=== PATIENT | female | born 1985 | race Caucasian/White ===

== ENCOUNTER 2023-10-08 03:35 | Outpatient (REF) | payer OTHER, SELFPAY ==
[2023-10-08 04:16] LABS: Hemoglobin 7.4 g/dL (12.0-16.0); Mean Corpuscular HGB Conc 31.2 g/dL (29.9-35.2); Mean Corpuscular Hemoglobin 29.1 pg (26.7-34.0); Mean Corpuscular Volume 93.3 fL (81.0-99.0); Mean Platelet Volume 10.5 fL (9.5-13.5); Platelet Count 297 10^3/uL (150-450); Red Blood Count 2.54 10^6/uL (4.20-5.40); Red Cell Distribution Width 17.3 % (11.0-15.0); White Blood Count 10.8 10^3/uL (4.0-11.0)
[2023-10-08 04:27] LABS: Alanine Aminotransferase 12 U/L (14-59); Albumin Globulin Ratio 0.4; Albumin Level 1.2 g/dL (3.4-5.0); Alkaline Phosphatase 288 U/L (46-116); Anion Gap 10.2; Aspartate Amino Transferase 29 U/L (15-37); BUN Creatinine Ratio 3.1; Bilirubin Total 0.6 mg/dL (0.2-1.0); Calcium 8.3 mg/dL (8.5-10.1); Carbon Dioxide 27.5 mmol/L (21.0-32.0); Chloride 96 mmol/L (98-107); Estimated GFR (African America 21 (>=60); Estimated GFR (Non-African Ame 18 (>=60); Glucose 62 mg/dL (74-106); Potassium 3.7 mmol/L (3.5-5.1); Sodium 130 mmol/L (136-145); Total Protein 4.2 g/dL (6.4-8.2)
[2023-10-08 06:01] LABS: Hematocrit 23.7 % (36.0-48.0)
[2023-10-08 06:02] LABS: Anisocytosis 2+; Atypical Lymphocytes Abs Man 0.97; Eosinophils Absolute Manual 0.32 10^3/uL (0.00-0.70); Hypersegmented Neutrophils 2+; Hypochromasia 4+; Lymphocytes Absolute Manual 3.45 10^3/uL (1.20-3.80); Monocytes Absolute Manual 1.94 10^3/uL (0.30-0.80); Segmented Neut Absolute Manual 3.99 10^3/uL (1.4-6.5)
[2023-10-08 06:03] LABS: Toxic Granulation 2+; Toxic Vacuolation 3+
== END 2023-10-08 03:36 | disposition home or self-care (01) ==
LOC: LAB 03:35
PROVIDERS: PCP Student in an Organized Health Care Education/Training Program; Visit Provider Student in an Organized Health Care Education/Training Program
DX: N18.6 End stage renal disease (principal)
CPT/HCPCS: 36415; 80053; 85007; 85027

== ENCOUNTER 2025-02-17 09:31 | Outpatient (OUT) | payer MEDICARE, MEDICAID, SELFPAY ==
--- NOTE | 2025-02-17 | XR_ITS ---
The [address] [address] Patient Name: WINNIE RM MRN: [id number] date: 1985 Sex: F Assigned Patient Location: [facility] Current Patient Location: [facility] Accession/Order Number: [id number] Exam Date: 02/17/2025 10:20 Report Date: 02/17/2025 10:49 At the request of: CAROLINA SEARS DO Procedure: XR hand RT min 3V CLINICAL HISTORY: M25.511 right shoulder and hand pain since fall 2 days ago. History of shoulder prosthesis. RIGHT SHOULDER - 3 views COMPARISON: None AP, Y and Grashey views were obtained. The bony structures are osteopenic. There is a reverse shoulder prosthesis. There is a cerclage wire at the proximal humerus and deformity of the shaft of the humerus around the femoral stem which appears old. There is no definite acute fracture or dislocation. There are no significant soft tissue abnormalities. XR/XR hand RT min 3V IMPRESSION: NO OBVIOUS ACUTE BONY INJURY. RIGHT HAND - 3 views COMPARISON: None AP, lateral and oblique views were obtained. There is osteopenia. There is no evidence of fracture or dislocation. No disproportionate joint space narrowing or hypertrophy is noted. There is mild soft tissue prominence at the second through fourth fingers and dorsum of the hand. IMPRESSION: NO ACUTE BONY FINDINGS. Impression dictated by: Mary Menard M.D. 02/17/2025 10:49 AM Dictation Location: [place] [address] Electronically authenticated by: [id number] Y Date: 02/17/2025 10:49
--- NOTE | 2025-02-17 | XR_ITS ---
The [address] [address] Patient Name: WINNIE RM MRN: [id number] date: 1985 Sex: F Assigned Patient Location: [facility] Current Patient Location: [facility] Accession/Order Number: [id number] Exam Date: 02/17/2025 09:45 Report Date: 02/17/2025 10:49 At the request of: CAROLINA SEARS DO Procedure: XR hand RT min 3V CLINICAL HISTORY: M25.511 right shoulder and hand pain since fall 2 days ago. History of shoulder prosthesis. RIGHT SHOULDER - 3 views COMPARISON: None AP, Y and Grashey views were obtained. The bony structures are osteopenic. There is a reverse shoulder prosthesis. There is a cerclage wire at the proximal humerus and deformity of the shaft of the humerus around the femoral stem which appears old. There is no definite acute fracture or dislocation. There are no significant soft tissue abnormalities. XR/XR shoulder RT min 2V IMPRESSION: NO OBVIOUS ACUTE BONY INJURY. RIGHT HAND - 3 views COMPARISON: None AP, lateral and oblique views were obtained. There is osteopenia. There is no evidence of fracture or dislocation. No disproportionate joint space narrowing or hypertrophy is noted. There is mild soft tissue prominence at the second through fourth fingers and dorsum of the hand. IMPRESSION: NO ACUTE BONY FINDINGS. Impression dictated by: Mary Menard M.D. 02/17/2025 10:49 AM Dictation Location: [place] [address] Electronically authenticated by: [id number] Y Date: 02/17/2025 10:49
--- OUTSIDE RECORDS SUMMARY | 2025-02-17 09:38 | XMS_ITS | CCD ---
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 Name Role Phone Frank Pantoja MD Primary Care Provider FRANK PANTOJA Referring Unavailable [place] Procedure Practitioner Unavailab DINA Nuñez Admitting Unavailable DINA CASEY Attending Unavailable DINA CASEY Surgeon Unavailable FRANK PANTOJA Primary Care Unavailable ANDRES, AKINFEMI S Referring Unavailable FRANK PANTOJA Primary Care Unavailable ANDRES, AKINFEMI S Referring Unavailable FRANK PANTOJA Primary Care Unavailable ANDRES, AKINFEMI S Referring Unavailable FRANK PANTOJA Primary Care Unavailable ANDRES, AKINFEMI S Referring Unavailable FRANK PANTOJA Primary Care Unavailable MD Frank Pantoja Primary Care Provider MD Flash Black Attending Provider MD Frank Pantoja Primary Care Provider [phone] MD Flash Black Attending Provider [phone] MD Joseph Mcbride Attending Provider MD Tima Lara Attending Provider [phone] SELF, SELF Referring Unavailable CODY ANGEL Attending Unavailable FRANK PANTOJA Primary Care Unavailable Frank Pantoja MD Primary Care Provider [phone] Clarissa Valles Unavailable Unavailable MD [facility] [phone] MD Pedro Floyd Attending Provider KASI Carmen Emergency Provider [phone] MD Flo Thomson Admit Provider MD Flo Thomson Attending Provider MD Gui Rodas Other Provider MD Pedro Floyd Other Provider MD Roberto Pollack Other Provider MD Beba Ng Attending Provider Kit SAMANIEGO, [facility] Primary Care Provide r KIT [facility] Primary Care Unavail able ROBERTO POLLACK Attending Unavailable KIT, [facility] Primary Care Unavail able KIT, [facility] Primary Care Unavail able PANTOJA, [facility] Primary Care Unavail able KIT, [facility] Primary Care Unavail able ROBERTO POLLACK Attending Unavailable KIT, [facility] Primary Care Unavail able PANTOJA, [facility] Primary Care Unavail able ROBERTO POLLACK Attending Unavailable NON STAFF Primary Care Provider UnavailDO Tone Suarez Emergency Provider MD Hortensia Cordero Admit Provider MD Hortensia Cordero Attending Provider Larry Bridges Consulting Un available NON STAFF Primary Care Unavailable Hortensia Cordero Admitting Unavailable Tani Meehan Attending Unavailab tonya Ac, Imad Consulting Unavailable Tima Lara Consulting Unavailable Radha Holman Consulting Unavailable Bren Kwon Consulting Unavailable Pepito Lopez Consulting Unavailable Will Romero Consulting Unavailab Tanya Strong Consulting Unavailable Joseph Ocampo Consulting Unavailable Alba Rodriguez Consulting Unavailable Luz Valdes Consulting Unavailable Cherelle Green Consulting Unavailable Alysha Thakur Consulting Unavailable Arvind Sun Consulting Unavailable Azeb George Consulting Unavailable Antelmo Ordoñez Consulting Unavailable Lobito Joe Consulting UnavailMarty Rachel Consulting Unavailable Cande Russo Consulting Unavailable Pippa Jules Consulting Unavailable Charlie Barajas Consulting Unavailable Pete Draper II Consulting UnavailChuy Gallardo Consulting Unavailable Emeka Canales Consulting Unavailable MD Larry Bridges Other Provider MD Dominic Ac Other Provider MD Tima Lara Other Provider Radha Holman Other Provider Unavailable DO Bren Kwon Other Provider MD Pepito Lopez Other Provider DO Will Romero Other Provider Alfa, ANP-BC Tanya Other Provider DO Joseph Ocampo Other Provider KASI Rodriguez Other Provider OSCAR Valdes-C Luz Espinoza Other Provider [phone] KASI Green-ELECTRONIC SECURITY SPECIALIST-C Cherelle Warren Other Provider HEAVEN Thakur Other Provider Unavailable MD Arvind Sun Other Provider OSCAR George-C Azeb R Other Provider MD Antelmo Ordoñez F Other Provider [phone] MD Lobito Joe Other Provider MD Marty Ashley Other Provider MD Cande Russo R Other Provider OSCAR Jules-C Pippa Lucero Other Provider DO Charlie Barajas Other Provider MD Pete Draper II Other Provider DO Chuy Mojica Other Provider MD Emeka Canales Other Provider MD Beba Ng Attending Provider DO Chuy Mojica Attending Provider DO Will Romero Other Provider KASI Rodriguez Other Provider [phone] KASI Saldana Emergency Provider MD Arvind Sun Attending Provider NON STAFF Primary Care Provider Unavailabl e DO Galina Chuy A Attending Provider [phone] MD Tima Lara Other Provider MD Kit [facility] Primary Care Provider DO Galina Chuy A Admit Provider NON STAFF Primary Care Provider Unavailabl e DO Galina Chuy A Attending Provider Galina WILDE Chuy A Attending Provider [phone] Kit SAMANIEGO, [facility] Primary Care Provider Chuy Mojica DO Admit Provider [phone] Kit SAMANIEGO, [facility] Primary Care Provider [phone] Chuy Mojica DO A Attending Provider Tima Lara MD Attending Provider NO FAMILY, PHYSICIAN Primary Care Provider Unava ilable Kit SAMANIEGO, [facility] Primary Care Provider Chuy Mojica DO Attending Provider [phone] Kit SAMANIEGO, [facility] Primary Care Provider [phone] Chuy Mojica DO Attending Provider Tima Lara MD Attending Provider NO FAMILY, PHYSICIAN Primary Care Provider Unava ilable Arvind Sun MD Attending Provider Chuy Mojica Attending Unavailable NO FAMILY, PHYSICIAN Primary Care Unavailable Galina Chuy A Admitting Unavailable Tima Lara Attending Unavailable Marco, Essam Admitting Unavailable [facility] Primary Care Unavailable Chuy Mojica Attending Unavailable Galina Chuy A Admitting Unavailable NO FAMILY, PHYSICIAN Primary Care Unavailable Arvind Sun Admitting Unavailable Arvind Sun Attending Unavailable [facility] Primary Care Unavailable Suman Mojicain A Attending Unavailable Galina Chuy A Admitting Unavailable Patria Saldana Attending Unavailable Patria Saldana Admitting Unavailable NON STAFF Primary Care Unavailable Elashi, Essam Consulting Unavailable Galina, Chuy A Attending Unavailable Galina, Chuy A Admitting Unavailable [place], [facility] Primary Care Unavailable Galina, Chuy A Attending Unavailable NON STAFF Primary Care Unavailable Galina, Chuy A Admitting Unavailable Galina, Chuy A Attending Unavailable Laton, [facility] Primary Care Unavailable Galina, Chuy A Admitting Unavailable Galina, Chuy A Attending Unavailable Laton, [facility] Primary Care Unavailable Galina, Chuy A Admitting Unavailable Pantoja, [facility] Primary Care Unavailable Galina, Chuy A Admitting Unavailable Galina, Chuy A Attending Unavailable Elashi, Essam Admitting Unavailable Elashi, Essam Attending Unavailable NO FAMILY, PHYSICIAN Primary Care Unavailable Galina, Chuy A Attending Unavailable Pantoja, [facility] Primary Care Unavailable Galina, Chuy A Admitting Unavailable Galina, Chuy A Attending Unavailable Laton, [facility] Primary Care Unavailable Galina, Chuy A Admitting Unavailable Galina, Chuy A Attending Unavailable [place], [facility] Primary Care Unavailable Galina, Chuy A Admitting Unavailable Galina, Chuy A Attending Unavailable Galina, Chuy A Admitting Unavailable NON STAFF Primary Care Unavailable Galina, Chuy A Attending Unavailable [facility] Primary Care Unavailable Galina, Chuy A Admitting Unavailable Galina, Chuy A Attending Unavailable [facility] Primary Care Unavailable Galina, Chuy A Admitting Unavailable Galina, Chuy A Attending Unavailable Galina, Chuy A Admitting Unavailable NON STAFF Primary Care Unavailable NON STAFF Primary Care Unavailable Arvind Sun Attending Unavailable Arvind Sun Admitting Unavailable Galina DO, Chuy A Attending Provider Provider, None Primary Care Unavailable Geneva Lynch Attending Unavailable Geneva Lynch Admitting Unavailable Galina DO, Chuy Attending Unavailable Galina DO, Chuy Admitting Unavailable [facility] Primary Care Unavailable Provider, None Primary Care Unavailable Galina DO, Chuy Attending Unavailable Galina DO, Chuy Admitting Unavailable Allergies Allergy Classification Reported Allergen(s) Allergy Type Date of Onset Reaction(s) Facility (20 sources) Penicillins; Translations: [PENICILLINS] Propensity to adverse reactions to drug 10-10-19 14 Rash [facility] (1 source) Sulfonamides (Antibiotic) Propensity to adverse reactions to drug 10-10-19 14 [facility] (1 source) Fish-Derived Products Propensity to adverse reactions to drug 10-10-19 14 [facility] (1 source) Penicillin; Translations: [PENICILLIN] Drug Allergy 04-04-20 [facility] Rep[facility] (20 sources) Sulfonamides (Antibiotic); Translations: [SULFA (SULFONAMIDE ANTIBIOTICS)] Propensity to adverse reactions (disorder) 08-01-19 21 Hives [facility] Rep[facility] (20 sources) Sulfamethoxazole; Translations: [SULFAMETHOXAZOLE] Drug Allergy 08-01-19 [facility] (20 sources) Trimethoprim; Translations: [TRIMETHOPRIM] Drug Allergy 08-01-19 [facility] (1 source) Fish - dietary Propensity to adverse reactions to drug 01-14-20 15 Anaphylaxis [facility] (5 sources) Sulfamethoxazole / Trimethoprim; Translations: [SULFAMETHOXAZOLE-T RIMETHOPRIM] Drug Allergy 12-05-19 15 Rash [facility] Work Phone: (4 sources) Fish; Translations: [FISH CONTAINING PRODUCTS] Drug Allergy 10-10-19 14 Unknown [place] (3 sources) Penicillins Drug Allergy 10-10-19 14 Hives, Rash [place] (4 sources) Shellfish; Translations: [SHELLFISH CONTAINING PRODUCTS] Drug Allergy 01-14-20 15 Anaphylaxis [place] (20 sources) Fish Oils; Translations: [fish oil] Drug Allergy 09-08-19 24 Unknown Reaction [facility] (2 sources) Penicillins Drug allergy (disorder) 09-08-19 [facility] Repository (14 sources) Fish - dietary Allergy to substance 01-06-20 Anaphylaxis [facility] (1 source) Sulfamethoxazole / Trimethoprim; Translations: [Bactrim] Drug Allergy [facility] (1 source) Sulfonamides (Antibiotic); Translations: [sulfa drugs] Propensity to adverse reactions to drug (disorder) [facility] Repository Medications Current Medications Medication Drug Class(es) Dates Sig (Normalized) Sig (Original) acetaminophen 325 mg / HYDROcodone bitartrate 5 mg oral tablet (6 sources) Opioid Agonist Start: 08-05-2024 take 1 tablet by mouth every eight hours as needed for pain Hydrocodone-Acet aminophen 5-325 mg tablet Active 1 TAB PO Every 8 hours as needed for pain 12 12August 05, 2024 amLODIPine 5 mg oral tablet (11 sources) Dihydropyridine Calcium Channel Candis Start: 06-15-2024 take 1 tablet by mouth once daily Amlodipine 5 mg tablet Active 5 MG PO Daily June 15, 2024 1:00am Start: 03-02-2021 take 1 tablet by asuncion th once daily amLODIPine (NORVASC) 5 MG tablet Take 1 tablet by mouth daily 30 tablet 3 03/02/2021 Active ascorbic acid 100 mg / biotin 0.15 mg / calcium pantothenate 5 mg / folic acid 1 mg / niacin 20 mg / pyridoxine 10 mg / riboflavin 1.7 mg / thiamine mononitrate 1.5 mg / vitamin b12 0.006 mg oral capsule (1 source) Nicotinic Acid, Vitamin B12, Vitamin C take 1 capsule by mouth once daily vitamin C/B complex/folic acid 1 MG capsule Take 1 capsule by mouth daily. 0 Active calcium acetate 667 mg oral tablet (20 sources) Start: take 1 tablet by mouth three times daily at mealtime Calcium Acetate 667 mg tablet Active 667 MG PO 3 times per day with meals September 08, 2023 12:00am Start: 07-10-2022 End: 09-26-2023 Calcium Acetate(Phosphat Bin d) 667 mg capsule Discontinued 50 MG PO 3X/Day with lunch,supper & HS July 10, 2022 1:00am September 26, 2023 12:32pm Start: 07-10-2022 End: 09-26-2023 take 50 mg by mouth once at bedtime Calcium Acetate(Phosphat Bind) Discontinued 50 MG PO 3X/Day with lunch,supper & HS July 10, 2022 1:00am September 26, 2023 12:32pm Start: 03-02-2021 calcium acetat e,phosphat bind, (PHOSLO) 667 mg capsule Calcium Acetate(Phosphat Bind) Active 50 MG PO 3X/Day with lunch,supper & HS July 10, 2022 12:00am 0 03/02/2021 Active Comment on above: Calcium Acetate(Phos phat Bind) Active 50 MG PO 3X/Day with lunch,supper & HS July 10, 2022 12:00am cycloSPORINE 100 mg oral capsule (20 sources) Calcineurin Inhibitor Immunosuppressant Start: 01-06-2024 Cyclosporine 100 mg capsule Active 75 MG PO Daily at bedtime January 06, 2024 12:00am Start: 12-23-2023 End: 01-06-2024 Cyclosporine 100 mg capsule Discontinued 75 MG PO Daily December 23, 2023 2:05pm January 06, 2024 3:07pm Patient may have 25 mg TID Start: 12-23-2023 End: 01-06-2024 take 25 mg by mouth once daily at bedtime Cyclosporine Active 75 MG PO Daily at bedtime January 06, 2024 12:00am Patient may have 25 mg TID Start: 09-08-2023 End: 12-23-2023 Cyclosporine 100 mg capsule Discontinued 75 MG PO Daily September 08, 2023 12:00am December 23, 2023 2:10pm Start: 09-08-2023 End: 12-23-2023 take 75 mg by mouth once daily Cyclosporine Discontinu ed 75 MG PO Daily September 08, 2023 12:00am December 23, 2023 2:10pm Start: 07-10-2022 End: 09-26-2023 take 1 capsule by mouth at bedtime Cyclosporine Modified 50 mg Capsule Discontinued 50 MG PO Bedtime July 10, 2022 1:00am September 26, 2023 12:32pm Start: 07-10-2022 End: 09-26-2023 Cyclosporine Modified 25 mg capsule Discontinued 75 MG PO Every morning July 10, 2022 1:00am September 26, 2023 12:32pm Start: 07-10-2022 End: 09-26-2023 take 75 mg by mouth once daily in the morning Cyclosporine Modified Discontinued 75 MG PO Every morning July 10, 2022 1:00am September 26, 2023 12:32pm Start: 07-31-2020 End: 07-10-2022 Cyclosporine Modified 25 mg capsule Discontinued 75 MG PO Twice daily July 31, 2020 1:00am July 10, 2022 4:36pm Start: 07-31-2020 End: 07-10-2022 take 75 mg by mouth twice daily Cyclosporine Modified Discontinued 75 MG PO Twice daily July 31, 2020 1:00am July 10, 2022 4:36pm Start: 09-12-2015 cycloSPORINE m odified (NEORAL,GENGRAF) 25 mg capsule Take 75 mg by mouth. 0 09/12/2015 Active Comment on above: Take 75 mg by mouth. escitalopram 5 mg oral tablet (20 sources) Serotonin Reuptake Inhibitor Start: 4 take 3 tablets by mouth once daily at bedtime Escitalopram Oxalate (Lexapro) 5 mg tablet Active 15 MG PO Daily at bedtime September 08, 2023 12:00am Start: 07-10-2022 End: 09-26-2023 Escitalopram Oxalate 10 mg t ablet Discontinued 15 MG PO Daily at bedtime July 10, 2022 1:00am September 26, 2023 12:32pm Start: 07-10-2022 End: 09-26-2023 take 15 mg by mouth once daily at bedtime Escitalopram Oxalate Discontinued 15 MG PO Daily at bedtime July 10, 2022 1:00am September 26, 2023 12:32pm take 3 tablets by mo uth once daily escitalopram oxalate (LEXAPRO) 5 mg tablet Take 3 tablets by mouth once daily. 0 Active Comment on above: Take 3 tablets by mo uth once daily. levothyroxine sodium 0.075 mg oral capsule (20 sources) l-Thyroxine Start: 4 take 1 capsule by mouth once daily at bedtime Levothyroxine 75 mcg capsule Active 75 MCG PO Daily at bedtime September 08, 2023 12:00am Start: 09-12-2015 End: 09-26-2023 take 1 tablet by mouth once daily Levothyroxine 75 mcg tablet Discontinued 75 MCG PO Daily July 31, 2020 1:00am September 26, 2023 12:32pm Comment on above: Levothyroxine Active 75 MCG PO Daily July 31, 2020 12:00am losartan potassium 50 mg oral tablet (20 sources) Angiotensin 2 Receptor Candis Start: 02-04-2024 take 1 tablet by mouth once daily Losartan 50 mg tablet Active 50 MG PO Daily February 04, 2024 12:00am Start: 01-06-2024 losartan Activ e PO Twice daily January 06, 2024 12:00am Start: 09-08-2023 End: 09-26-2023 take 1 tablet by mouth once daily at bedtime Losartan 50 mg tablet Discontinued 50 MG PO Daily at bedtime September 08, 2023 12:00am September 26, 2023 12:32pm Start: 07-10-2022 End: 09-26-2023 take 1 tablet by mouth twice daily Losartan 25 mg Tablet Discontinued 25 MG PO Twice daily July 10, 2022 1:00am September 26, 2023 12:32pm Comment on above: Take 25 mg by mouth. 24 hr metoprolol succinate 50 mg extended release oral tablet (20 sources) beta-Adrenergic Candis Start: 12-12-2023 take 1 tablet by mouth twice daily Metoprolol Succinate 50 mg tablet extended release 24 hr Active 50 MG PO Twice daily December 12, 2023 12:00am Start: 09-08-2023 End: 12-10-2023 take 1 tablet by mouth once daily at bedtime Metoprolol Succinate 50 mg tablet extended release 24 hr Discontinued 50 MG PO Daily at bedtime September 08, 2023 12:00am December 10, 2023 11:12am Start: 02-05-2021 take 1 tablet by asuncion th twice daily metoprolol tartrate (LOPRESSOR) 50 MG tablet Indications: Essential hypertension Take 1 tablet by mouth twice daily 180 tablet 0 02/05/2021 Active Start: 07-31-2020 End: 09-26-2023 take 2 tablets by mouth once daily Metoprolol Tartrate 25 mg Tablet Discontinued 50 MG PO Daily July 31, 2020 1:00am September 26, 2023 12:32pm Start: 07-31-2020 End: 09-26-2023 take 50 mg by mouth once daily Metoprolol Tartrate Dis continued 50 MG PO Daily July 31, 2020 1:00am September 26, 2023 12:32pm Start: 07-31-2020 take 25 mg by mouth twice luis antonio y Metoprolol Tartrate Active 25 MG PO Twice daily July 31, 2020 12:00am take 1 tablet by asuncion th once daily metoprolol succinate ER (TOPROL XL) 25 mg 24 hr tablet Take 1 tablet by mouth once daily. 0 Active Comment on above: Take 1 tablet by asuncion th once daily. omeprazole 10 mg delayed release oral capsule (20 sources) Proton Pump Inhibitor Start: 02-04-2024 take 1 capsule by mouth once daily Omeprazole 10 mg capsule,delayed release(DR/EC) Active 10 MG PO Daily February 04, 2024 12:00am Start: 01-15-2016 End: 09-26-2023 take 1 capsule by mouth once daily Omeprazole 20 mg capsule,delayed release(DR/EC) Discontinued 20 MG PO Daily September 08, 2023 12:00am September 26, 2023 12:32pm Medication Name: Omeprazole; Note: Source Status: Taking; Provider: Leo Messer ( ) Comment on above: Omeprazole Active 20 MG PO Daily July 31, 2020 12:00am ondansetron 4 mg disintegrating oral tablet (20 sources) Serotonin-3 Receptor Antagonist Start: 12-23-19 take 1 tablet by mouth every four to six hours as needed for nausea and vomiting Ondansetron 4 mg tablet,disintegrati ng Active 4 MG PO EVERY 4-6 HOURS as needed for nausea and vomiting December 23, 2023 12:00am Start: 09-26-2023 End: 12-10-2023 take 1 tablet by mouth every six hours as needed for nausea and vomiting Ondansetron 4 mg Tablet,Disintegrating Discontinued 4 MG PO Every 6 hours as needed for Nausea And Vomiting 0 September 26, 2023 12:00am December 10, 2023 11:12am Start: 06-03-2022 End: 09-26-2023 take 1 tablet by mouth every eight hours as needed for nausea Ondansetron 4 mg tablet,disintegrating Discontinued 4 MG PO Q8H as needed for Nausea July 10, 2022 1:00am September 26, 2023 12:32pm Start: 11-15-2019 take 1 tablet by asuncion th every twelve hours as needed for nausea ondansetron (ZOFRAN) 4 MG tablet TAKE ONE TABLET BY MOUTH EVERY 12 HOURS NEEDED FOR NAUSEA/VOMITING 180 tablet 0 11/15/2019 Active Start: 01-15-2016 take 0.5 tablet by m outh once daily as needed for nausea ondansetron 4 MG Tab 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 Takes before morning medications 15 tablet 11 01/15/2016 Active Comment on above: Ondansetron Active 4 MG PO Q8H July 10, 2022 12:00am pantoprazole 40 mg delayed release oral tablet (20 sources) Proton Pump Inhibitor Start: take 40 mg by mouth once daily at bedtime Pantoprazole Active 40 MG PO Daily at bedtime December 12, 2023 12:00am Start: 12-12-2023 Pantoprazole A ctive MG PO December 12, 2023 12:00am Start: 09-26-2023 End: 12-10-2023 take 1 tablet by mouth once daily Pantoprazole 40 mg Tablet,Delayed Release (Dr/Ec) Discontinued 40 MG PO Daily September 26, 2023 12:00am December 10, 2023 11:12am thiamine 100 mg oral tablet (20 sources) Start: 12-12-2023 take 1 tablet by mouth once daily at bedtime Thiamine Hcl (Vitamin B1) 100 mg tablet Active 100 MG PO Daily at bedtime December 12, 2023 12:00am Start: 12-12-2023 Thiamine Hcl ( Vitamin B1) Active MG TABLET December 12, 2023 12:00am Start: 09-26-2023 End: 12-10-2023 take 1 tablet by mouth twice daily Thiamine Hcl (Vitamin B1) 100 mg Tablet Discontinued 100 MG PO Twice daily September 26, 2023 12:00am December 10, 2023 11:12am triamcinolone acetonide 1 mg /ml topical cream (1 source) Corticosteroid triamcinolone (K ENALOG) 0.1 % cream Apply topically 2 times daily Apply topically 2 times daily. 0 Active Completed/Discontinued Medications Medication Drug Class(es) Dates Sig (Normalized) Sig (Original) acetaminophen 500 mg oral tablet (20 sources) Start: 01-20-2024 End: 04-01-2024 take 1 tablet by mouth every six hours as needed for pain Acetaminophen 500 mg tablet Discontinued 500 MG PO Q6H as needed for Pain February 19, 2024 12:00am April 01, 2024 2:58pm acetaminophen 325 mg / oxyCODONE hydrochloride 5 mg oral tablet (20 sources) Opioid Agonist Start: 09-26-2023 End: 12-10-2023 take 1 tablet by mouth every eight hours as needed for pain Oxycodone-Acetamino phen 5-325 mg tablet Discontinued 1 TAB PO Every 8 hours as needed for pain 9 September 26, 2023 December 10, 2023 11:12am Start: 09-08-2023 End: 09-26-2023 take 1 tablet by mouth every four hours as needed for pain Oxycodone-Acetaminophen 5-325 mg tablet Discontinued 1 TAB PO Every 4 hours as needed for pain September 08, 2023 12:00am September 26, 2023 12:32pm ALPRAZolam 0.25 mg oral tablet (20 sources) Benzodiazepine Start: 09-08-2023 End: 09-26-2023 take 1 tablet by mouth once daily at bedtime as needed for sleep Alprazolam 0.25 mg tablet Discontinued 0.25 MG PO Daily at bedtime as needed for sleep September 08, 2023 12:00am September 26, 2023 12:32pm Start: 07-10-2022 End: 09-26-2023 take 1 tablet by mouth once daily at bedtime as needed for anxiety Alprazolam (Xanax) 0.5 mg Tablet Discontinued 0.5 MG PO Daily at bedtime as needed for Anxiety July 10, 2022 1:00am September 26, 2023 12:32pm ALPRAZolam (XANA X) 0.25 mg tablet Take 0.25 mg by mouth. 0 Active Comment on above: Take 0.25 mg by mout h. aspirin 81 mg chewable tablet (20 sources) Platelet Aggregation Inhibitor, Nonsteroidal Anti-inflammatory Drug Start: End: take 1 tablet by mouth twice daily Aspirin 81 mg tablet,chewable Discontinued 81 MG PO Twice daily 60 30 January 20, 2024 12:00am April 01, 2024 2:59pm Start: 07-07-2018 take 1 tablet by asuncion th once daily aspirin (V-R ASPIRIN EC) 325 MG EC tablet Indications: Immunocompromised (HCC) TAKE ONE TABLET BY MOUTH ONCE DAILY 30 tablet 4 07/07/2018 Active Start: 01-15-2016 End: 07-10-2022 take 1 tablet by mouth once daily Aspirin 325 mg Tablet Discontinued 325 MG PO Daily July 31, 2020 1:00am July 10, 2022 4:35pm cholecalciferol 0.125 mg oral tablet (20 sources) Vitamin D Start: 07-31-2020 End: 07-10-2022 take 1 tablet by mouth once daily Cholecalciferol (Vitamin D3) (Vitamin D3) 125 mcg (5,000 unit) Tablet Discontinued 125 MCG PO Daily July 31, 2020 1:00am July 10, 2022 4:36pm End: 07-08-2022 Vitamin D3 2000 units Cap Ta ke 5,000 Units by mouth daily. 0 07/08/2022 Discontinued diphenhydrAMINE hydrochloride 25 mg oral tablet (4 sources) Histamine-1 Receptor Antagonist diphenhydrAMINE (BENADRYL) 25 mg tablet Take 25 mg by mouth. 0 Active Comment on above: Take 25 mg by mouth. docusate sodium 100 mg oral capsule (20 sources) Start: 2023 End: 2023 take 1 capsule by mouth twice daily as needed for constipation Docusate Sodium (Colace) 100 mg capsule Discontinued 100 MG PO Twice daily as needed for Constipation 14 03February 19, 2024 12:00am April 01, 2024 2:59pm Start: 01-20-2024 End: 02-04-2024 take 1 capsule by mouth twice daily as needed for constipation Docusate Sodium (Colace) 100 mg capsule Discontinued 100 MG PO Twice daily as needed for Constipation 14 03February 03, 2024 12:00am February 04, 2024 12:56pm doxycycline hyclate 100 mg oral capsule (20 sources) Tetracycline-class Drug Start: 01-20-2024 End: 04-01-2024 take 1 capsule by mouth twice daily Doxycycline Hyclate 100 mg capsule Discontinued 100 MG PO Twice daily 70 35 February 24, 2024 11:37am April 01, 2024 2:59pm 1 ml epoetin mariano 49755 unt/ml injection (20 sources) Erythropoiesis-stimulat ing Agent Start: 09-08-2023 End: 08-05-2024 inject [id number] [IU] by subcutaneous injection every week Epoetin Mariano (Epogen) 10,000 unit/mL solution Discontinued [id number] UNIT SUBCUT .weekly September 08, 2023 12:00am August 05, 2024 10:31am ferrous sulfate 325 mg oral tablet (20 sources) Start: 04-25-2020 End: 07-10-2022 take 1 tablet by mouth twice daily Ferrous Sulfate (Iron (Ferrous Sulfate)) 325 mg (65 mg iron) Tablet Discontinued 325 MG PO Twice daily July 31, 2020 1:00am July 10, 2022 4:36pm Start: 01-15-2016 End: 07-08-2022 take 1 tablet by mouth twice daily at mealtime ferrous sulfate 324 (65 FE) MG Tab DR Indications: alf current use of immunosuppressive drug , Liver replaced by transplant , Encounter for aftercare following liver transplant , Iron deficiency anemia, unspecified iron deficiency anemia type take 1 tablet by mouth 2 times daily with meals.. 60 tablet 11 01/15/2016 07/08/2022 Discontinued folic acid 1 mg oral tablet (20 sources) Start: 09-26-2023 End: 08-05-2024 take 5 tablets by mouth once daily at bedtime Folic Acid 1 mg Tablet Discontinued 5 MG PO Daily at bedtime January 06, 2024 12:00am August 05, 2024 10:29am Start: 09-26-2023 End: 01-06-2024 take 5 mg by mouth once daily at bedtime Folic Acid Active 5 MG PO Daily at bedtime January 06, 2024 12:00am Start: 08-05-2022 take 2 tablets by mo ut once daily folic acid 1 mg tablet Take 2 tablets by mouth once daily. 180 tablet 3 08/05/2022 Active Start: 07-16-2022 End: 08-05-2022 take 1 tablet by mouth once daily folic acid 1 mg tablet Take 1 tablet by mouth once daily. 30 tablet 3 07/16/2022 08/05/2022 Discontinued Comment on above: [facility] 2 tablets by mo [facility] once daily. furosemide 40 mg oral tablet (4 sources) Loop Diuretic furosemide (LASI X) 40 mg tablet Take 40 mg by mouth. 0 Active take 1 tablet by mouth twice dorota ly furOSEmide 20 MG tablet Take 1 tablet by mouth 2 times daily. 0 Active Comment on above: Take 40 mg by mouth. gentamicin 1 mg/ml topical cream (20 sources) Start: 09-08-2023 End: 12-10-2023 Gentamicin 0.1 % cream Discontinued 1 APPLIC TOPICAL Daily September 08, 2023 12:00am December 10, 2023 11:12am Start: 07-10-2022 End: 12-10-2023 Gentamicin 0.1 % cream Disco ntinued 1 APPLIC TOPICAL Daily July 10, 2022 1:00am September 26, 2023 12:32pm hydroCHLOROthiazide 25 mg oral tablet (20 sources) Thiazide Diuretic Start: 07-31-2020 End: 07-10-2022 take 1 tablet by mouth once daily Hydrochlorothiazide 25 mg tablet Discontinued 25 MG PO Daily July 31, 2020 1:00am July 10, 2022 4:36pm Magic Mouthwash With Lidocaine (20 sources) Start: 09-26-2023 End: 12-10-2023 take 1 mL by mouth every four hours as needed Magic Mouthwash With Lidocaine Discontinued 5 mL PO Every 4 hours as needed September 26, 2023 12:00am December 10, 2023 11:12am Start: 09-26-2023 End: 12-10-2023 take 1 mL by mouth every four hours as needed Magic Mouthwash With Lidocaine Discontinued 5 mL PO Every 4 hours as needed September 25, 2023 11:00pm December 10, 2023 10:12am Start: 09-26-2023 End: 12-10-2023 take 1 mL by mouth every four hours Magic Mouthwash With Lidocaine Discontinued 5 mL PO Every 4 hours September 26, 2023 12:00am December 10, 2023 11:12am Start: 09-26-2023 take 1 mL by mouth e very four hours Magic Mouthwash With Lidocaine Active 5 mL PO Every 4 hours September 26, 2023 12:00am magnesium glycinate 100 mg oral tablet (20 sources) Start: 09-08-2023 End: 04-01-2024 take 1 tablet by mouth once daily at bedtime Magnesium Glycinate (Mag Glycinate) 100 mg tablet Discontinued 100 MG PO Daily at bedtime September 08, 2023 12:00am April 01, 2024 3:00pm Start: 09-08-2023 take 1 tablet by [facility] th twice daily Magnesium Glycinate (Mag Glycinate) 100 mg tablet Active 100 MG PO Twice daily September 08, 2023 12:00am magnesium oxide 400 mg oral tablet (2 sources) Start: 09-20-2022 take 1 tablet by mouth once daily magnesium oxide (MAG-OX) 400 mg (241.3 mg magnesium) tablet Take 1 tablet by mouth once daily. 0 09/20/2022 Active Start: 02-22-2021 magnesium oxid e (MAG-OX) 400 MG tablet Indications: Benign hypertension with CKD (chronic kidney disease) stage V (HCC) , CKD (chronic kidney disease) stage 5, GFR less than 15 ml/min ([facility]) , Proteinuria, unspecified type , Hyponatremia , Hyperphosphatemia , Hypermagnesemia , Microalbuminuria , Anemia in stage 5 chronic kidney disease, not on chronic dialysis ([facility]) , Elevated serum immunoglobulin free light chain level Take 1 tablet by mouth daily 30 tablet 6 02/22/2021 Active Comment on above: Take 1 tablet by [facility] once daily. meloxicam 15 mg oral tablet (20 sources) Nonsteroidal Anti-inflammatory Drug Start: End: take 1 tablet by mouth once daily Meloxicam 15 mg tablet Discontinued 15 MG PO Daily February 04, 2024 12:00am February 20, 2024 12:30pm mycophenolic acid 360 mg delayed release oral tablet (20 sources) Antimetabolite Immunosuppressant Start: End: take 1 tablet by mouth twice daily Mycophenolate Sodium 360 mg tablet,delayed release (DR/EC) Discontinued 360 MG PO Twice daily December 23, 2023 1:54pm December 23, 2023 2:10pm Start: 12-12-2023 End: 12-23-2023 Mycophenolate Sodium Discont inued MG PO December 12, 2023 12:00am December 23, 2023 1:54pm Start: 09-08-2023 End: 12-10-2023 Mycophenolate Sodium (Myfort ic) 360 mg tablet,delayed release (DR/EC) Discontinued 720 MG PO Daily September 08, 2023 12:00am December 10, 2023 11:12am Start: 07-10-[address] (MYFORTIC) 180 mg EC tablet Start: 08-02-2021 take 3 tablets by mo [facility] every twelve hours Myfortic [address] Take 3 tablets by mouth every 12 hours. 540 tablet 3 08/02/2021 Active Start: 07-31-2020 End: 07-10-2022 Mycophenolate Sodium (Myfort ic) 180 mg tablet,delayed release (DR/EC) Discontinued 540 MG PO Twice daily July 31, 2020 1:00am July 10, 2022 4:36pm Start: 01-20-2017 Mycophenolate Sodium (MYFORTIC) 360 MG TBEC Take 720 mg by mouth 0 01/20/2017 Active NIFEdipine 30 mg osmotic 24 hr extended release oral tablet (20 sources) Dihydropyridine Calcium Channel Candis Start: 07-10-2022 End: 09-26-2023 take 1 tablet by mouth every twenty-four hours at bedtime Nifedipine 30 mg tablet extended release 24hr Discontinued 30 MG PO Bedtime July 10, 2022 1:00am September 26, 2023 12:32pm Start: 07-10-2022 End: 09-26-2023 take 30 mg by mouth at bedtime Nifedipine Discontinued 30 MG PO Bedtime July 10, 2022 1:00am September 26, 2023 12:32pm nystatin [id number] unt/ml oral suspension (20 sources) Polyene Antifungal Start: 09-26-2023 End: 12-10-2023 take [id number] [IU] by mouth three times daily Nystatin 100,000 unit/mL Suspension Discontinued [id number] UNIT PO Three times daily 0 September 26, 2023 12:00am December 10, 2023 11:12am 12 hr orphenadrine citrate 100 mg extended release oral tablet (20 sources) Muscle Relaxant Start: 09-08-2023 End: 09-26-2023 take 1 tablet by mouth twice daily Orphenadrine Citrate 100 mg tablet extended release Discontinued 100 MG PO Twice daily September 08, 2023 12:00am September 26, 2023 12:32pm oxyCODONE hydrochloride 5 mg oral tablet (20 sources) Opioid Agonist Start: 03-18-2024 End: 03-18-2024 take 1 tablet by mouth every twelve hours as needed for pain Oxycodone 5 mg tablet Discontinued 5 MG PO Every 12 hours as needed for Pain 07 12March 18, 2024 March 18, 2024 8:04am Start: 03-18-2024 End: 04-01-2024 take 1 tablet by mouth every twelve hours as needed for pain Oxycodone 5 mg tablet Discontinued 5 MG PO Every 12 hours as needed for Pain 07 12March 18, 2024 April 01, 2024 3:01pm Start: 03-18-2024 End: 04-01-2024 take 1 tablet by mouth every twelve hours as needed for pain Oxycodone 5 mg tablet Discontinued 5 MG PO Every 12 hours as needed for Pain 15 March 18, 2024 April 01, 2024 3:01pm Start: 01-20-2024 End: 08-05-2024 take 1 tablet by mouth every six hours as needed for pain Oxycodone 5 mg tablet Discontinued 5 MG PO Q6H as needed for Pain 20 12February 19, 2024 March 18, 2024 8:03am polyethylene glycol 3350 97977 mg powder for oral solution (20 sources) Osmotic Laxative Start: 02-19-2024 End: 02-20-2024 Polyethylene Glycol 3350 (Miralax) 17 gram powder in packet Discontinued 17 GM PO daily February 19, 2024 12:00February 20, 2024 12:31pm 1 packet mixed with 8 ounces of fluid. Start: 01-20-2024 End: 02-04-2024 Polyethylene Glycol 3350 (Mi ralax) 17 gram powder in packet Discontinued 17 GM PO daily February 03, 2024 12:00am February 04, 2024 1:01pm 1 packet mixed with 8 ounces of fluid. Potassium (1 source) POTASSIUM ORAL T jemima by mouth. 0 Active Comment on above: Take by mouth. potassium chloride 20 meq extended release oral tablet (20 sources) Start: 09-08-2023 End: 09-26-2023 take 1 tablet by mouth once daily Potassium Chloride 20 mEq tablet extended release Discontinued 20 MEQ PO Daily September 08, 2023 12:00am September 26, 2023 12:32pm Start: 07-31-2022 take 1 tablet by [facility] th once daily potassium chloride ER (KLOR-CON) 20 mEq tablet Take 20 mEq by mouth once daily. 0 07/31/2022 Active Comment on above: Take 20 mEq by mouth once daily. Protein Supplement (20 sources) Start: 09-08-2023 End: 09-26-2023 Protein Supplement Discontinued 1 EACH PO .three times a week September 08, 2023 12:00am September 26, 2023 12:32pm Start: 09-08-2023 Protein Supple ment Active 1 EACH PO .three times a week September 08, 2023 12:00am Protein Supplement liquid (12 sources) Start: 09-08-2023 End: 09-26-2023 Protein Supplement liquid Discontinued 1 EACH PO .three times a week September 08, 2023 12:00am September 26, 2023 12:32pm Start: 09-08-2023 End: 09-26-2023 Protein Supplement liquid Di scontinued 1 EACH PO .three times a week September 07, 2023 11:00pm September 26, 2023 11:32am traMADol hydrochloride 50 mg oral tablet (20 sources) Opioid Agonist Start: 04-05-2024 End: 08-05-2024 Tramadol 50 mg tablet Discontinued 50 MG PO every 6 to 8 hours as needed for pain 12 April 05, 2024 1:00am August 05, 2024 10:31am Start: 12-23-2023 End: 02-04-2024 Tramadol 50 mg tablet Discon tinued 50 MG PO every 6 to 8 hours 20 January 01, 2024 4:34pm January 06, 2024 2:57pm Start: 10-29-2023 End: 12-10-2023 take 1 tablet by mouth every eight hours as needed for pain Tramadol 50 mg tablet Discontinued 50 MG PO Every 8 hours as needed for Pain 20 November 21, 2023 10:45am December 10, 2023 11:13am Start: 09-26-2023 End: 12-10-2023 take 1 tablet by mouth every twelve hours as needed for pain Tramadol 25 mg tablet Discontinued 25 MG PO Every 12 hours as needed for pain 6 September 26, 2023 12:00am December 10, 2023 11:12am Start: 09-26-2023 End: 12-10-2023 take 1 tablet by mouth every twelve hours as needed for pain Tramadol 25 mg tablet Discontinued 25 MG PO Every 12 hours as needed for pain 6 September 25, 2023 11:00pm December 10, 2023 10:12am Start: 09-26-2023 End: 12-10-2023 take 25 mg by mouth every twelve hours Tramadol Discontinued 25 MG PO Every 12 hours 6 September 26, 2023 12:00am December 10, 2023 11:12am Start: 09-26-2023 take 25 mg by mouth every twelve hours Tramadol Active 25 MG PO Every 12 hours 6 September 26, 2023 12:00am Problems Active Problems Problem Classification Problem Date Documented Date Episodic/Chronic Alcohol-related disorders (20 sources) Alcohol abuse; Translations: [Alcohol abuse, uncomplicated] Onset: 5 Resolved: 5 11-09-2014 Chronic Anxiety disorders (1 source) Anxiety; Translations: [Anxiety disorder, unspecified] Onset: 4 10-09-2013 Chronic Aortic; peripheral; and visceral artery aneurysms (1 source) Aneurysm of hepatic artery; Translations: [Aneurysm of other specified arteries] Onset: 1 02-16-2021 Chronic Bacterial infection; unspecified site (19 sources) Bacteremia caused by Gram-negative bacteria; Translations: [Bacteremia] Onset: 7 02-16-2021 Episodic Biliary tract disease (4 sources) Biliary stricture; Translations: [Obstruction of bile duct] Onset: 6 10-04-2015 Chronic Chronic kidney disease (20 sources) Dependence on hemodialysis; Translations: [Dependence on renal dialysis] Onset: 5 Resolved: 5 01-06-2015 Chronic Comment on above: Problem List clean-u p per request of Phys. EHR Cmte Mon-Wed-Fri Deficiency and other anemia (3 sources) Anemia of chronic disease; Translations: [Anemia in other chronic diseases classified elsewhere] Onset: 5 02-07-2016 Chronic Deficiency and other anemia (2 sources) Anemia in chronic kidney disease; Translations: [Anemia due to chronic kidney disease, on chronic dialysis (HCC)] Onset: 3 Chronic Deficiency and other anemia (20 sources) Chronic anemia; Translations: [Anemia, unspecified] 07-10-2022 Episodic Comment on above: Problem List clean-u p per request of Phys. EHR Cmte Deficiency and other anemia (20 sources) Anemia; Translations: [Anemia, unspecified] 07-10-2022 Episodic Comment on above: Problem List clean-u p per request of Phys. EHR Cmte Deficiency and other anemia (6 sources) Anemia, unspecified; Translations: [Anemia, unspecified] 07-10-2022 Episodic Diseases of white blood cells (20 sources) Leukocytosis; Translations: [Elevated white blood cell count, unspecified] Onset: 5 10-04-2015 Chronic Esophageal disorders (3 sources) Gastroesophageal reflux disease without esophagitis; Translations: [Gastro-esophageal reflux disease without esophagitis] Onset: 6 10-04-2015 Chronic Essential hypertension (3 sources) Essential hypertension; Translations: [Essential (primary) hypertension] Onset: 4 Resolved: 0 10-04-2015 Chronic Fluid and electrolyte disorders (20 sources) Hyponatremia; Translations: [Hypo-osmolality and hyponatremia] Onset: 4 07-10-2022 Episodic Comment on above: Problem List clean-u p per request of Phys. EHR Cmte Genitourinary symptoms and ill-defined conditions (20 sources) Proteinuria; Translations: [Proteinuria, unspecified] Onset: 5 Resolved: 5 Episodic Hypertension with complications and secondary hypertension (20 sources) Chronic kidney disease stage 5; Translations: [Hypertensive chronic kidney disease with stage 5 chronic kidney disease or end stage renal disease] Onset: 1 Chronic Comment on above: Problem List clean-u p per request of Phys. EHR Cmte Immunity disorders (6 sources) Patient immunocompromised; Translations: [Immunodeficiency, unspecified] Onset: 5 02-07-2016 Chronic Malaise and fatigue (20 sources) Asthenia; Translations: [Weakness] 09-08-2023 Episodic Osteoporosis (20 sources) Senile osteoporosis; Translations: [Age-related osteoporosis without current pathological fracture] 12-24-2023 Chronic Other aftercare (2 sources) Transplant follow-up; Translations: [Encounter for aftercare following other organ transplant] Onset: 1 02-16-2021 Chronic Other aftercare (2 sources) Encounter for aftercare following other organ transplant; Translations: [Encounter for aftercare following other organ transplant] Onset: 3 Chronic Other aftercare (2 sources) Taking high risk medication; Translations: [Other meterman (current) drug therapy] Onset: 1 02-16-2021 Episodic Other aftercare (2 sources) Other snf (current) drug therapy; Translations: [Other snf (current) drug therapy] Onset: 3 Episodic Other aftercare (12 sources) Drug therapy finding; Translations: [alf (current) use of antibiotics] 04-01-2024 Episodic Other aftercare (4 sources) 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; Translations: [Long-term (current) use of antibiotics] 04-01-2024 Episodic Other connective tissue disease (20 sources) History of reverse prosthetic total arthroplasty of right shoulder; Translations: [Presence of right artificial shoulder joint] 01-20-2024 Chronic Other connective tissue disease (20 sources) Presence of right artificial shoulder joint; Translations: [Shoulder joint replacement] Onset: 4 02-02-2024 Chronic Other connective tissue disease (20 sources) History of operative procedure on shoulder; Translations: [Presence of unspecified artificial shoulder joint] 02-03-2024 Chronic Other connective tissue disease (20 sources) Presence of unspecified artificial shoulder joint; Translations: [Shoulder joint replacement] Onset: 5 02-16-2024 Chronic Other connective tissue disease (20 sources) Rhabdomyolysis; Translations: [Rhabdomyolysis] 09-08-2023 Episodic Other connective tissue disease (3 sources) Rhabdomyolysis; Translations: [Rhabdomyolysis] Onset: 4 09-08-2023 Episodic Other diseases of kidney and ureters (20 sources) Secondary hyperparathyroidism; Translations: [Secondary hyperparathyroidism of renal origin] 07-10-2022 Chronic Comment on above: Problem List clean-u p per request of Phys. EHR Cmte Other diseases of kidney and ureters (3 sources) Secondary hyperparathyroidism of renal origin; Translations: [Secondary hyperparathyroidism (of renal origin)] 07-10-2022 Chronic Other diseases of kidney and ureters (20 sources) Renal impairment; Translations: [Disorder of kidney and ureter, unspecified] Onset: 1 02-16-2021 Episodic Comment on above: Problem List clean-u p per request of Phys. EHR Cmte Other injuries and conditions due to external causes (2 sources) Personal history of (healed) traumatic fracture; Translations: [Personal history of traumatic fracture] Onset: 4 09-27-2023 Episodic Other injuries and conditions due to external causes (20 sources) H/O: fracture; Translations: [Personal history of (healed) traumatic fracture] 09-17-2023 Episodic Comment on above: right Other liver diseases (10 sources) Liver transplant status; Translations: [Liver replaced by transplant] Onset: 3 Chronic Other nervous system disorders (3 sources) Disorder of brain; Translations: [Disorder of brain, unspecified] Onset: 5 10-04-2015 Chronic Other nervous system disorders (1 source) Metabolic encephalopathy; Translations: [Metabolic encephalopathy] Onset: 4 Chronic Other nervous system disorders (20 sources) Metabolic encephalopathy; Translations: [Metabolic encephalopathy] 09-17-2023 Chronic Other nutritional; endocrine; and metabolic disorders (2 sources) Hyperbilirubinemia; Translations: [Other disorders of bilirubin metabolism] Onset: 5 02-07-2016 Chronic Other nutritional; endocrine; and metabolic disorders (2 sources) Obese class I; Translations: [Obesity, unspecified] Onset: 5 10-04-2015 Chronic Other nutritional; endocrine; and metabolic disorders (20 sources) Hypomagnesemia; Translations: [Hypomagnesemia] 07-12-2022 Chronic Comment on above: Problem List clean-u p per request of Phys. EHR Cmte Other nutritional; endocrine; and metabolic disorders (1 source) Iron overload; Translations: [Other disorders of iron metabolism] Chronic Other nutritional; endocrine; and metabolic disorders (1 source) Other disorders of iron metabolism; Translations: [Iron overload] Onset: 3 Chronic Other screening for suspected conditions (not mental disorders or infectious disease) (20 sources) Liver function tests abnormal; Translations: [Abnormal results of liver function studies] Onset: 7 02-16-2021 Episodic Residual codes; unclassified (20 sources) Liver transplant planned; Translations: [Awaiting organ transplant status] 09-17-2023 Chronic Comment on above: OCTOBER 2014 Residual codes; unclassified (1 source) H/O: high risk medication; Translations: [Personal history of other drug therapy] Onset: 1 02-16-2021 Episodic Residual codes; unclassified (20 sources) Other specified postprocedural states; Translations: [History of peritoneal dialysis] Onset: 4 09-17-2023 Episodic Septicemia (except in labor) (20 sources) Sepsis, unspecified organism; Translations: [Sepsis] Onset: 4 09-17-2023 Episodic Sprains and strains (1 source) Strain of muscle, fascia and tendon of other parts of biceps, unspecified arm, initial encounter; Translations: [Strain of muscle, fascia and tendon of other parts of biceps, unspecified arm, initial encounter] Onset: 5 Episodic Superficial injury; contusion (1 source) Abrasion of unspecified finger, initial encounter; Translations: [Abrasion of unspecified finger, initial encounter] Onset: 5 Episodic Thyroid disorders (2 sources) Hypothyroidism; Translations: [Hypothyroidism, unspecified] Onset: 6 10-04-2015 Chronic Past or Other Problems Problem Classification Problem Date Documented Date Episodic/Chronic Abdominal pain (5 sources) Abdominal pain; Translations: [Unspecified abdominal pain] Onset: 05-16-2015 10-04-2015 Episodic Acute and unspecified renal failure (5 sources) Acute renal failure syndrome; Translations: [Acute kidney failure, unspecified] Onset: 09-23-2014 Resolved: 01-16-2015 10-04-2015 Episodic Cardiac dysrhythmias (1 source) Sinus bradycardia; Translations: [Bradycardia, unspecified] Onset: 12-25-2014 Resolved: 01-06-2015 01-06-2015 Episodic Complication of device; implant or graft (20 sources) Complication of transplanted liver; Translations: [Unspecified complication of liver transplant] Onset: 08-16-2019 02-16-2021 Episodic Crushing injury or internal injury (1 source) Injury of kidney; Translations: [Unspecified injury of unspecified kidney, initial encounter] Onset: 01-31-2015 10-04-2015 Episodic Deficiency and other anemia (2 sources) Iron deficiency anemia; Translations: [Iron deficiency anemia, unspecified] Onset: 06-20-2015 10-04-2015 Episodic Fever of unknown origin (5 sources) Fever with chills; Translations: [Fever, unspecified] Onset: 01-13-2015 10-04-2015 Episodic Fracture of upper limb (20 sources) Unspecified fracture of upper end of right humerus, initial encounter for closed fracture; Translations: [Closed fracture of upper end of humerus] Onset: 09-08-2023 09-17-2023 Episodic Immunizations and screening for infectious disease (3 sources) Positive measurement finding; Translations: [Other specified abnormal immunological findings in serum] Onset: 12-12-2014 Resolved: 12-26-2014 12-26-2014 Episodic Nutritional deficiencies (1 source) Deficiency of macronutrients; Translations: [Mild protein-calorie malnutrition] Onset: 01-16-2015 Resolved: 02-28-2015 02-28-2015 Chronic Other connective tissue disease (2 sources) Chronic pain of right upper limb; Translations: [Pain in right hand] Onset: 07-31-2020 02-16-2021 Episodic Other female genital disorders (1 source) Vaginal discharge; Translations: [Other specified noninflammatory disorders of vagina] Onset: 03-17-2018 02-16-2021 Episodic Other hematologic conditions (1 source) Raised cardiac enzyme or marker; Translations: [Other specified abnormalities of plasma proteins] Onset: 12-25-2014 Resolved: 01-06-2015 01-06-2015 Episodic Other liver diseases (1 source) Jaundice; Translations: [Unspecified jaundice] Onset: 11-09-2014 11-09-2014 Episodic Other liver diseases (1 source) Acute hepatic failure; Translations: [Acute and subacute hepatic failure without coma] Onset: 12-04-2014 Resolved: 01-06-2015 01-06-2015 Episodic Other liver diseases (1 source) Hepatic encephalopathy; Translations: [Hepatic encephalopathy] Onset: 12-05-2014 Resolved: 01-06-2015 01-06-2015 Episodic Other liver diseases (1 source) Scleral icterus; Translations: [Unspecified jaundice] Onset: 12-06-2014 Resolved: 01-06-2015 01-06-2015 Episodic Other lower respiratory disease (3 sources) Dyspnea; Translations: [Shortness of breath] Onset: 01-16-2015 10-04-2015 Episodic Other nervous system disorders (1 source) Acute postoperative pain; Translations: [Other acute postprocedural pain] Onset: 12-21-2014 Resolved: 01-06-2015 01-06-2015 Episodic Other nutritional; endocrine; and metabolic disorders (1 source) Hyperphosphatemia; Translations: [Other disorders of phosphorus metabolism] Onset: 01-03-2015 Resolved: 01-16-2015 01-16-2015 Chronic Residual codes; unclassified (1 source) Awaiting transplantation; Translations: [Awaiting organ transplant status] Onset: 12-19-2014 Resolved: 12-21-2014 12-21-2014 Chronic Urinary tract infections (1 source) Cystitis; Translations: [Cystitis, unspecified without hematuria] Onset: 12-19-2014 Resolved: 01-06-2015 01-06-2015 Episodic Viral infection (2 sources) Cytomegalovirus viremia; Translations: [Cytomegaloviral disease, unspecified] Onset: 01-24-2015 10-04-2015 Episodic Results Test Name Value Interpretation Reference Range Facility Consent Formson 02-16-2025 Consent Forms [id number] TIFF [facility] XR Humerus Righton XR Humerus Right EXAM: XR SHOULDER COMPLETE RIGHT, XR HUMERUS RIGHT HISTORY: fall COMPARISON: Right shoulder from 09/01/2023. TECHNIQUE: 2 views are done of the right humerus and 3 views are done of the right shoulder. FINDINGS: There is moderate osteopenic changes. There is a total reverse right shoulder arthroplasty with an elongated stem in the proximal to mid right humerus. No fracture or dislocation or bony lesions are noted. No foreign bodies are noted. No soft tissue gas is noted. IMPRESSION: 1. No evidence of fracture of the right shoulder girdle right humerus. 2. Osteopenic and stable postsurgical changes noted. Final Dictated by: Adan Beaver DO Dictated DT/TM: 02/15/25 7:54 Signed (Electronic Signature): Adan Beaver DO 02/15/25 7:56 pm [facility] Complete Righton 02-15-2025 XR Shoulder Complete Right EXAM: XR SHOULDER COMPLETE RIGHT, XR HUMERUS RIGHT HISTORY: fall COMPARISON: Right shoulder from 09/01/2023. TECHNIQUE: 2 views are done of the right humerus and 3 views are done of the right shoulder. FINDINGS: There is moderate osteopenic changes. There is a total reverse right shoulder arthroplasty with an elongated stem in the proximal to mid right humerus. No fracture or dislocation or bony lesions are noted. No foreign bodies are noted. No soft tissue gas is noted. IMPRESSION: 1. No evidence of fracture of the right shoulder girdle right humerus. 2. Osteopenic and stable postsurgical changes noted. Final Dictated by: Adan Beaver DO Dictated DT/TM: 02/15/25 7:54 Signed (Electronic Signature): Adan Beaver DO 02/15/25 7:56 pm Technologist: [facility] Physical Therapy Noteon -3 Physical Therapy Note [id number]#[id number] IFF [facility] Physical Therapy Note [id number]#[id number] IFF [facility] Albumin Levelon 09-13-2024 Albumin [Mass/Vol] 3.7 g/dL Normal 3.5-5.7 [facility] Comment on above: Result Comment: PERF ORMED BY:[address] [place], [place] [phone] MEDICAL DIRECTORANTELMO TINEO M.D. Performed By: #### G CLAUDIA, CO2, CREAT, PRE BUN, K, ALB, HGB ####[address] [address] [facility]#### HBSAG ####[facility] , Albumin [Mass/volume] in Ser um or Plasma by Bromocresol green (BCG) dye binding methoOrdered By: Tima Lara on 09-13-2024 Albumin BCG dye [Mass/Vol] Albumin [Mass/volume] in Serum or Plasma by Bromocresol green (BCG) dye binding metho 3.5-5.7 [facility] BUN - Post Dialysison 2024 Urea nitrogen [Mass/Vol] 16 mg/dL Normal 12-17 [facility] Comment on above: Result Comment: PERF ORMED BY:[address] [place], [place] [phone] MEDICAL DIRECTORANTELMO TINEO M.D. Performed By: #### P OST BUN ####[address] [address] [facility] BUN - Pre Dialysison 025 Urea nitrogen [Mass/Vol] 60 mg/dL High - [facility] Comment on above: Performed By: #### G CLAUDIA, CO2, CREAT, PRE BUN, K, ALB, HGB ####[place] [address] [place]#### HBSAG ####[facility] , Carbon Dioxideon 09-13-2024 CO2 [Moles/Vol] 23.9 mmol/L Normal 21.0-31.0 [facility] Comment on above: Performed By: #### G CLAUDIA, CO2, CREAT, PRE BUN, K, ALB, HGB ####[address]#### HBSAG ####[facility] , Carbon dioxide, total [Moles /volume] in Serum or PlasmaOrdered By: Tima Lara on 09-13-2024 CO2 [Moles/Vol] Carbon dioxide, tota l [Moles/volume] in Serum or Plasma 21.0-31.0 [facility] Creatinineon 09-13-2024 Creatinine [Mass/Vol] 13.00 mg/dL High 0.60-1.[address] [facility] Comment on above: Performed By: #### G CLAUDIA, CO2, CREAT, PRE BUN, K, ALB, HGB ####[address]#### HBSAG ####[facility] , Estimated GFR 3.343 mL/Min Normal [facility] Comment on above: Performed By: #### G CLAUDIA, CO2, CREAT, PRE BUN, K, ALB, HGB ####[place] [address] [place]#### HBSAG ####[facility] , Creatinine [Mass/volume] in Serum or PlasmaOrdered By: Tima Lara on 09-13-2024 Creatinine [Mass/Vol] Creatinine [Mass/v olume] in Serum or Plasma High 0.60-1.20 [facility] Glucoseon 09-13-2024 Glucose [Mass/Vol] 89 mg/dL Normal 70-100 [facility] Comment on above: Result Comment: [place] Glucose Reference Range is dependent on time and content of last meal. Glucose of more than 200 mg/dL in a nonstressed, ambulatory subject supports the diagnosis of Diabetes Mellitus. ADA recommended reference range Performed By: #### G CLAUDIA, CO2, CREAT, PRE BUN, K, ALB, HGB ####[address]#### HBSAG ####[facility] , Glucose [Mass/volume] in Ser um or PlasmaOrdered By: Tima Lara on 09-13-2024 Glucose [Mass/Vol] Glucose [Mass/volume ] in Serum or Plasma 70-100 [facility] Comment on above: ADA recommended refe rence rangeRandom Glucose Reference Range is dependent on time and content of last meal. Glucose of more than 200 mg/dL in a nonstressed, ambulatory subject supports the diagnosis of Diabetes Mellitus. Hemoglobinon 09-13-2024 Hemoglobin (Bld) [Mass/Vol] 10.4 g/dL Low 11.8-15.4 [facility] Comment on above: Result Comment: PERF ORMED BY:[address] [place], [place] [phone] MEDICAL DIRECTORANTELMO TINEO M.D. Performed By: #### G CLAUDIA, CO2, CREAT, PRE BUN, K, ALB, HGB ####[address]#### HBSAG ####[facility] , Hemoglobin [Mass/volume] in BloodOrdered By: Tima Lara on 09-13-2024 Hemoglobin (Bld) [Mass/Vol] Hemoglobin [Mass/volume] in Blood Low 11.8-15.4 [facility] Hepatitis B Surface Antigeno n 09-13-2024 HBsAg Screen Negative Normal Negative [facility] Comment on above: Result Comment: Perf ormed at: - [facility] [address] [id number] Chiropractic Practice Manager: Ovi Avila PhD, Phone: [phone] BY:[address] [place], [place] [phone] MEDICAL DIRECTORANTELMO TINEO M.D. Performed By: #### G CLAUDIA, CO2, CREAT, PRE BUN, K, ALB, HGB ####[facility] [place] [id number] [facility]#### HBSAG ####[facility] , No Panel InformationOrdered By: Tima Lara on 09-13-2024 Estimated GFR (CKD-EPI) 3.343 mL/Min [facility] Creatinine Clearance (Chem N/A [facility] Potassiumon 09-13-2024 Potassium [Moles/Vol] 4.9 mmol/L Normal 3.5-5.1 [facility] Comment on above: Performed By: #### G CLAUDIA, CO2, CREAT, PRE BUN, K, ALB, HGB ####[facility]#### HBSAG ####[facility] , Potassium [Moles/volume] in Serum or PlasmaOrdered By: Tima Lara on 09-13-2024 Potassium [Moles/Vol] Potassium [Moles/v olume] in Serum or Plasma 3.5-5.1 [facility] Urea nitrogen [Mass/volume] in Serum or PlasmaOrdered By: Tima Lara on 09-13-2024 Urea nitrogen [Mass/Vol] Urea nitrogen [Mass/volume] in Serum or Plasma Significant change down 7-25 [facility] Comment on above: Delta: 60 on 5-0630 X-ray reportOrdered By: Arpit Meehan on 09-07-2024 Study report [facility] [address] [place] [address] XRay Report Signed Patient: Winnie Cai MR#: [id number] : 1985 Acct:[id number] Age/Sex: 39 / F ADM Date: 5 Loc: [facility] Room: Type: [facility] CLI Attending Dr: Chuy Mojica DO Copies to: Chuy A Galina, DO~ Ordering Provider: Chuy Mojica DO Date of Service: 09/07/24 XR/XR shoulder RT min 2V*: Z96.619 - Presence of unspecified artificial shoulder joint 3 views right shoulder plain film HISTORY: Status post revision right reverse total shoulder arthroplasty COMPARISON: 06/15/2024 ACUTE FINDINGS: None DEGENERATIVE CHANGE: Unremarkable SOFT TISSUE FINDINGS: Unremarkable JOINT EFFUSION: None POSTOP CHANGES: Adequate hardware. Dialysis catheter unchanged BONY MINERALIZATION: Adequate XR/XR shoulder RT min 2V* IMPRESSION: Adequate right shoulder arthroplasty. No hardware complication. Impression dictated by: Arvind Meehan M.D.09/07/2024 3:34 PM Dictation Location: [facility]-16 Transcribed By: [facility] 09/07/241533 Dictated By: Arvind Meehan DO 09/07/241532 Signed By: 09/07/24 1534 [facility] XR shoulder RT min 2V*on XR shoulder RT min 2V* Normal Th e [facility] Provider Orderson 08-25-2024 Provider Orders [id number] IFF Normal [facility] Basic Metabolic Panelon 07-24 Anion gap [Moles/Vol] 14.6 mmol/L Normal 6.0-15.0 e [facility] Physician [facility] Comment on above: Performed By: #### B MP ####[place] [id number] [place] [id number] [facility] Calcium [Mass/Vol] 8.7 mg/dL Normal 8.6-10.3 [facility] Physician [facility] Comment on above: Performed By: #### B MP ####[place] [address] [place] [address] [facility] Chloride [Moles/Vol] 93 mmol/L Low 98-107 [facility] Phys[facility] Comment on above: Performed By: #### B MP ####[facility] [place] [address] [facility] CO2 [Moles/Vol] 25.7 mmol/L Normal 21.0-31.0 [facility] Comment on above: Performed By: #### B MP ####[address] [address] [facility] Creatinine [Mass/Vol] 5.91 mg/dL High 0.60-1.20 [facility] Comment on above: Performed By: #### B MP ####[address] [address] [facility] Creatinine Clr Calc Pharmacy 11.79 Normal [facility] Comment on above: Result Comment: PERF ORMED BY:[address] [place], [place] [phone] MEDICAL DIRECTORANTELMO TINEO M.D. Performed By: #### B MP ####[address] [address] [facility] Estimated GFR 8.609 mL/Min Normal [facility] Comment on above: Performed By: #### B MP ####[address] [address] [facility] Glucose [Mass/Vol] 79 mg/dL Normal 70-100 [facility] Comment on above: Result Comment: [place] om Glucose Reference Range is dependent on time and content of last meal. Glucose of more than 200 mg/dL in a nonstressed, ambulatory subject supports the diagnosis of Diabetes Mellitus. ADA recommended reference range Performed By: #### B MP ####[address] [address] [facility] Potassium [Moles/Vol] 5.3 mmol/L High 3.5-5.1 [facility] Comment on above: Performed By: #### B MP ####[address] [address] [facility] Sodium [Moles/Vol] 128 mmol/L Low 136-145 [facility] Comment on above: Performed By: #### B MP ####[address] [address] [facility] Urea nitrogen [Mass/Vol] 47 mg/dL High 7-25 [facility] Comment on above: Performed By: #### B MP ####[address] [place] [address] [place] Basophils Auto (Bld) [#/Vol] Ordered By: RAMSEY COONEY on 08-05-2024 Basophils (Bld) [#/Vol] Automated basophil count 0.0-0.2 [facility] Basophils/100 WBC Auto (Bld) Ordered By: RAMSEY COONEY on 08-05-2024 Basophils/100 WBC (Bld) Automated basophil % . [facility] Calcium [Mass/volume] in Ser um or PlasmaOrdered By: RAMSEY COONEY on 08-05-2024 Calcium [Mass/Vol] Calcium [Mass/volume ] in Serum or Plasma 8.6-10.3 [facility] Carbon dioxide, total [Moles /volume] in Serum or PlasmaOrdered By: RAMSEY COONEY on 08-05-2024 CO2 [Moles/Vol] Carbon dioxide, tota l [Moles/volume] in Serum or Plasma 21.0-31.0 [facility] Chloride [Moles/volume] in S jie or PlasmaOrdered By: RAMSEY COONEY on 08-05-2024 Chloride [Moles/Vol] Chloride [Moles/vol ume] in Serum or Plasma Low 98-107 [facility] Complete Blood Count Auto Di ffon 08-05-2024 Basophils (Bld) [#/Vol] 0.1 10*3/uL Normal 0.0-0.2 [facility] Comment on above: Result Comment: PERF ORMED BY:[address] [place], [place] [phone] MEDICAL DIRECTORANTELMO TINEO M.D. Performed By: #### C BC ####[place] [address] [place] [id number] [facility] Basophils/100 WBC (Bld) 1.0 % Normal . T deshawn [facility] Comment on above: Performed By: #### C BC ####[place] [id number] [facility] Eosinophils (Bld) [#/Vol] 0.1 10*3/uL Normal 0.0-0.45 [facility] Comment on above: Performed By: #### C BC ####[address] Eosinophils/100 WBC (Bld) 2.0 % Normal . [facility] Comment on above: Performed By: #### C BC ####[address] Erythrocyte distribution width (RBC) [Ratio] 15.8 % High 11.9-15.3 [facility] Comment on above: Performed By: #### C BC ####[address] Hematocrit (Bld) [Volume fraction] 36.7 % Normal 34.0-46.4 [facility] Comment on above: Performed By: #### C BC ####[address] Hemoglobin (Bld) [Mass/Vol] 12.5 g/dL Normal 11.8-15.4 [facility] Comment on above: Performed By: #### C BC ####[address] Lymphocytes (Bld) [#/Vol] 2.0 10*3/uL Normal 1.00-4.8 [facility] Comment on above: Performed By: #### C BC ####[address] Lymphocytes/100 WBC (Bld) 28.6 % Normal . [facility] Comment on above: Performed By: #### C BC ####[address] MCH (RBC) [Entitic mass] 33.2 pg Normal 24.7-34.3 [facility] Comment on above: Performed By: #### C BC ####[address] MCV (RBC) [Entitic vol] 97.6 fL Normal 80-100 T he [facility] Comment on above: Performed By: #### C BC ####[address] Mean Corpuscular HGB Conc 34.0 g/dL Normal 32.0-35.0 [facility] Comment on above: Performed By: #### C BC ####[address] Monocytes (Bld) [#/Vol] 0.9 10*3/uL High 0.0-0.8 [facility] Comment on above: Performed By: #### C BC ####[address] Monocytes/100 WBC (Bld) 13.0 % Normal . T he [facility] Comment on above: Performed By: #### C BC ####[address] Neutrophils (Bld) [#/Vol] 3.9 10*3/uL Normal 1.8-7.7 [facility] Comment on above: Performed By: #### C BC ####[address] Neutrophils/100 WBC (Bld) 55.4 % Normal . [facility] Comment on above: Performed By: #### C BC ####[address] NRBC% 0.0 /100{WBC} Normal 0-0.5 [facility] Comment on above: Performed By: #### C BC ####[address] Platelet mean volume (Bld) [Entitic vol] 7.2 fL Normal 6.3-10.7 [facility] Comment on above: Performed By: #### C BC ####[address] Platelets (Bld) [#/Vol] 295 10*3/uL Normal 150-450 [facility] Comment on above: Performed By: #### C BC ####[address] RBC (Bld) [#/Vol] 3.76 10*6/uL Normal 3.60-5.00 [facility] Comment on above: Performed By: #### C BC ####[facility] [id number] [place] [id number] [facility] WBC (Bld) [#/Vol] 7.1 10*3/uL Normal 3.8-11.6 [facility] Comment on above: Performed By: #### C BC ####[facility] [id number] [place] [id number] [facility] Creatinine [Mass/volume] in Serum or PlasmaOrdered By: RAMSEY COONEY on 08-05-2024 Creatinine [Mass/Vol] Creatinine [Mass/v olume] in Serum or Plasma High 0.60-1.20 [facility] ECG 12 lead ECGon 08-05-2024 ECG 12 lead ECG Normal [facility] Eosinophils Auto (Bld) [#/Vo l]Ordered By: RAMSEY COONEY on 08-05-2024 Eosinophils (Bld) [#/Vol] Automated eosinophil count 0.0-0.45 [facility] Eosinophils/100 WBC Auto (Bl d)Ordered By: RAMSEY COONEY on 08-05-2024 Eosinophils/100 WBC (Bld) Automated eosinophil % . [facility] Erythrocyte distribution wid th Auto (RBC) [Ratio]Ordered By: RAMSEY COONEY on 08-05-2024 Erythrocyte distribution width (RBC) [Ratio] Erythrocyte distribution width [Ratio] by Automated count High 11.9-15.3 [facility] Glucose [Mass/volume] in Ser um or PlasmaOrdered By: RAMSEY OCONEY on 08-05-2024 Glucose [Mass/Vol] Glucose [Mass/volume ] in Serum or Plasma 70-100 [facility] Comment on above: ADA recommended refe rence rangeRandom Glucose Reference Range is dependent on time and content of last meal. Glucose of more than 200 mg/dL in a nonstressed, ambulatory subject supports the diagnosis of Diabetes Mellitus. Hematocrit Auto (Bld) [Volum e fraction]Ordered By: RAMSEY COONEY on 08-05-2024 Hematocrit (Bld) [Volume fraction] Hematocrit [Volume Fraction] of Blood by Automated count 34.0-46.4 [facility] Hemoglobin [Mass/volume] in BloodOrdered By: RAMSEY COONEY on 08-05-2024 Hemoglobin (Bld) [Mass/Vol] Hemoglobin [Mass/volume] in Blood 11.8-15.4 [facility] Leukocytes [#/volume] correc [place] for nucleated erythrocytes in Blood by Automated counOrdered By: RAMSEY COONEY on 08-05-2024 WBC corrected for nucl RBC Auto (Bld) [#/Vol] Leukocytes [#/volume] corrected for nucleated erythrocytes in Blood by Automated coun 3.8-11.6 [facility] Lymphocytes Auto (Bld) [#/Vo l]Ordered By: RAMSEY COONEY on 08-05-2024 Lymphocytes (Bld) [#/Vol] Lymphocytes [#/volume] in Blood by Automated count 1.00-4.8 [facility] Lymphocytes/100 WBC Auto (Bl d)Ordered By: RAMSEY COONEY on 08-05-2024 Lymphocytes/100 WBC (Bld) Lymphocytes/100 leukocytes in Blood by Automated count . [facility] MCH Auto (RBC) [Entitic mass ]Ordered By: RAMSEY COONEY on 08-05-2024 MCH (RBC) [Entitic mass] MCH [Entitic mass] by Automated count 24.7-34.3 [facility] MCHC Auto (RBC) [Mass/Vol]Or dered By: RAMSEY COONEY on 08-05-2024 MCHC (RBC) [Mass/Vol] MCHC [Mass/volume] by Automated count 32.0-35.0 [facility] MCV Auto (RBC) [Entitic vol] Ordered By: RAMSEY COONEY on 08-05-2024 MCV (RBC) [Entitic vol] MCV [Entitic vol ume] by Automated count 80-100 [facility] Monocytes Auto (Bld) [#/Vol] Ordered By: RAMSEY COONEY on 08-05-2024 Monocytes (Bld) [#/Vol] Automated blood monocyte count High 0.0-0.8 [facility] Monocytes/100 WBC Auto (Bld) Ordered By: RAMSEY COONEY on 08-05-2024 Monocytes/100 WBC (Bld) Automated monocyte % . [facility] Neutrophils Auto (Bld) [#/Vo l]Ordered By: RAMSEY COONEY on 08-05-2024 Neutrophils (Bld) [#/Vol] Neutrophils [#/volume] in Blood by Automated count 1.8-7.7 [facility] Neutrophils/100 WBC Auto (Bl d)Ordered By: RAMSEY COONEY on 08-05-2024 Neutrophils/100 WBC (Bld) Automated neutrophil % . [facility] No Panel InformationOrdered By: RAMSEY COONEY on 08-05-2024 Estimated GFR (CKD-EPI) 8.609 mL/Min [facility] Creatinine Clearance (Chem 11.79 [facility] Nucleated erythrocytes [Pres ence] in Blood by Automated countOrdered By: RAMSEY COONEY on 08-05-2024 Nucleated RBC Auto Ql (Bld) Nucleated erythrocytes [Presence] in Blood by Automated count 0-0.5 [facility] Platelet mean volume Auto (B ld) [Entitic vol]Ordered By: RAMSEY COONEY on 08-05-2024 Platelet mean volume (Bld) [Entitic vol] Platelet mean volume [Entitic volume] in Blood by Automated count 6.3-10.7 [facility] Platelets Auto (Bld) [#/Vol] Ordered By: RAMSEY COONEY on 08-05-2024 Platelets (Bld) [#/Vol] Platelets [#/vol ume] in Blood by Automated count 150-450 [facility] Potassium [Moles/volume] in Serum or PlasmaOrdered By: RAMSEY COONEY on 08-05-2024 Potassium [Moles/Vol] Potassium [Moles/v olume] in Serum or Plasma High 3.5-5.1 [facility] RBC Auto (Bld) [#/Vol]Ordere d By: RAMSEY COONEY on 08-05-2024 RBC (Bld) [#/Vol] Erythrocytes [#/volu me] in Blood by Automated count 3.60-5.00 [facility] Serum or plasma anion gap de terminationOrdered By: RAMSEY COONEY on 08-05-2024 Anion gap [Moles/Vol] Serum or plasma an ion gap determination 6.0-15.0 [facility] Sodium [Moles/volume] in Ser um or PlasmaOrdered By: RAMSEY COONEY on 08-05-2024 Sodium [Moles/Vol] Sodium [Moles/volume ] in Serum or Plasma Low 136-145 [facility] Urea nitrogen [Mass/volume] in Serum or PlasmaOrdered By: RAMSEY COONEY on 08-05-2024 Urea nitrogen [Mass/Vol] Urea nitrogen [Mass/volume] in Serum or Plasma High 7-25 [facility] WBC Auto (Bld) [#/Vol]Ordere d By: RAMSEY COONEY on 08-05-2024 WBC (Bld) [#/Vol] Leukocytes [#/volume ] in Blood by Automated count 3.8-11.6 [facility] US map hemodial access BILon 07-01-2024 US map hemodial access ROBERTO Normal [facility] X-ray reportOrdered By: Salvatore Gardner on 06-15-2024 Study report [facility] [address] [place] [address] XRay Report Signed Patient: Winnie Cai MR#: [id number] : 1985 Acct:[id number] Age/Sex: 38 / F ADM Date: 5 Loc: [facility] Room: Type: [facility] Attending Dr: Chuy Mojica DO Copies to: Chuy Mojica DO~ Ordering Provider: Chuy Mojica DO Date of Service: 06/15/24 XR/XR shoulder RT min 2V*: Z96.611 - Presence of right artificial shoulder joint RIGHT SHOULDER - - 3 views CLINICAL HISTORY: Follow-up revision of shoulder arthroplasty COMPARISON: Right shoulder 04/05/2024 FINDINGS: No hardware complication. No acute bony process. Right-sided dialysis catheter. XR/XR shoulder RT min 2V* IMPRESSION: NO HARDWARE COMPLICATION. Impression dictated by: Emeka Gardner Jr., D.OLenore06/15/2024 1:47 PM Dictation Location: [place] [address] Transcribed By: [facility] 06/15/24 1347 Dictated By: Emeka Gardner Jr, DO 06/15/24 1346 Signed By: 06/15/24 1347 [facility] XR shoulder RT min 2V*on XR shoulder RT min 2V* Normal e [facility] Provider Orderson 05-25-2024 Provider Orders [id number]#1.00[facility] Provider Orderson 05-17-2024 Provider Orders [id number]#1.00[facility] Coding Summaryon 05-13-2024 Coding Summary HTMLBase 64 QkfywxspDHg5bCq+PGhlYWQ+ VR7SIASfN49evYKcjV4aB6GO TElOSywgQVBQTElOSyIgbmFt PR6yvZKjUGOa IC8+FC4cXTJrKaotwYVcp0X2 iWE3Y07hpi0tTRydkZQ9TGQl LxWgwbkhw2umoVp9NXbzRwlj OyBt BFBnqW93VJO2hJ65Hi57eSVf gLSpg9gveRv4YzPnHBMtPIR9 qGbzTKlhq8UsFUKdO88ipPFb c2U6 CFGpaCmdoDYiLlUlxNU8oT9j WFxbipsnz0trbjoxVog3mr73 yOKme1W6wIW7E9VhmzS3UEGw bGQg AdxkgEBXyP8qhfxhm8zftczx YdPtZJJxIQn2MRk7LWWxbYpt OjVsMI16ZFO2PDTnyeDyU9Xv LWFs dPcqVxJ2j0X7Tf4VL3PUEphz A1MLUPCEKQqarHA+QD46lx37 D7QzOlsdAuk5QYOtNKT4qYL4 aD0n TVXsYBizg7F0iSR4K4AbwuJm zm9vn4ajQTGkTSlpR73ziGFg p3O9WXEfxQB1REJwiGkbMkIy aG93 Oyc+PXOauQkro9CkMjpvv8pi p8dubCy7ZbhqTYZgblLklTvw XOF6t5VxGs7bIFHzjMB3eDF2 aD0i MwEyXpW6XNndQ651KaDbuAJq EdceQ62pH9QcpAE+PHRyPjx0 EZPreSemQP7sY7SsITZhedgh bGVm jFtzWN7yQSEnaqrxSPYrtT5k HTEsX2d5UhXqZbJ2UBqrC7Iu TOSvcoeyXv74iX8xLwFrZpT9 MGlu B8KsquG0EFAzkMJgTHwwCAX6 E70rc4Q4LWDtSDNfGEF6bVH2 kR0ojWhzvyqniGFikArbjrQl dGlj PQhtERtaP714APRneKxoYlSl ZGluZyBEYXRlOiAgMTIvMTkv MjAyNDwvdGQ+UFJiDEB4jKoy PSAn sPCvABsoYa2ccVzulOjySQ3u OXEntewcBNDdyB0aMGVjuOAv lIzfBN5iMKHgakmoz227GdSa MHB0 WZRkxCPbJ3DnzI3aFtWlGBLg PAJnL5ZevNCzQOxmM445HUow ZcT7IOBwcmTiI1XrLZTsgDne OiB0 x2I8Bg7Mi8IpeuzoT0UpfLTv JaZhWmmpECk1K0EoZbkboRS+ YT80QJFyET47PKe9XUU8tMms PSdi VVSvX3BxfU0oFbQeDUTxZAEu Oyc+PHRhYmxlIHdpZHRoPScx DEUjRxTsmNhlVN7dXm8dFEJt LWNv aRhssJBvWmDtx9aqSZBqHDvz HL4bsFnbR0OuqOU9CDUlt2g1 Gw45U44aL1WfeFG+PGNvbCB3 aWR0 eF8kKxXwZoA0AHlpX661IfJo tEFmZudry8idx2nngMr1UjB8 NTYyeyRtaNasJNU1g6NcXp79 Y29s IHdpZHRoPSIxNSUiIHZhbGln vr8dsL0gDx3+UYWevOU8tEL3 bO8iRuSdSrG3FVuiR684DeXn cCIv Yqdvx5jig2tnuJv9JnMpORVw qgQzeXstKEO9d9XvYt60L7Pg fBdmy5VoHrb5iw05lVVht9A9 bGU9 I3HyTBPiatxibHDveUqxYG6p LGEjwfmoUOXkiE7wAKHvJ7p9 IlEdPkG1IAppI3BxkaK0IYGm bGQg PEDmnDOBhV9qbppvk4knyvdi YwMfFSDcVQy9QKz8MBOdxSjh YwZrUSG2YiB2GLT6fGUaaJ2u bGln xhmlhB0nFzj+NZU8iKDarNHE TQ5jCfvvyEQ+JCSyOZV8lTyq TFtjKIJwbK3qCBBgQ3c0RpOw LjA1 DZxaR9RxbwR9DTVqxMVnDFEi bAVLuK6zcfwji3nydebzWtIa KDYtEIg1SLt6RWGprEwvQfCi ZWZ0 IfY7MSJ4vPYbmS5adIcwjgyc tO8dHad+EdwkbRwnXQU7QMs0 L8MqPei0ZNDzzQttSY4qjBVj ZGlu No6jhEowjAfvLR4nWEHuwkpp f379HvUqr1szSPHxqQFfHSfn BUM0U15ig5M3FCEhHJOtQVZ3 dGV4 kB3iiOzqpnfwwQBlyKgqvyAg hNbiCRhsLDdlV438YISotSwx BbOpGGb0W6DoDrk2OYVhwAbj ZT0n mCWmLNitIn1ssZiwlMjoCS8y VSBwprkne324TmZyp6yiMARm kCZbHEhvYVO7H63dg4M0DAMr MDAw VUF8tPW1hB5gdBcjbeapaYEj lIrlifNuaEsnBPpoLDzeK152 VSSldXihGzQlfQr2K7DcHks0 ZCBz mAcxOU2raSHiOWxrBd1htCnz vAwvVT8kTNYjvzxib564HzYg e5nxPBTxpVUfFRjgVVB5Y87e b3I6 YNTvKBHzASP6oQB8iB2fxHdf bjogbGVmdDsgdmVydGljYWwt CZzhY671FZCnbCrrFzPywKpq bnQg PFdqHFi6Q7OuPjctqLI+PC90 MAUcCL61xWCvzOWlt2jreJq7 JeTiDYBuSZP0pDpcIFzni2Cl ZXIt K56blPImf2O0WHZmvGxjcCRi AqKuiDN5pV8bUPktpyqjr9fy wdcmGapwq8xcpa08yK93H19b IHdp GPMpXXFhFZHqWWIahEczez1z vV1eLj5+RPWnzUC9lRL2hJ8y HGOhWkW6MOcsA067RsYxfUGn Pjxj r0goo3epqEl0NzH4SLXtgiWj vEfgSRS0s5XpTr13K45xSNmq NHGgZIBkNIUiTAPypQgwiw8n dG9w Ii8+VEOtoTI7uQV3rC7nWrIc KwP0TLthC369DmXxqKOjJyqa N12xZ0WesYP+PDRaExs0NXOc dHls HY6hkFQaLOxlZd7fQKD3YiLs WeGxKZgmC4XpDZRtagdigbip lPQ0LWJnFKSagL72Ja8kfBby MTBw hNYDbT0cyhgkp5wxoeiwGyYr XRDfGZz4YLp6VANhfCukApJb MAR3WxE5VIV6yKWjyO1xzWua bjog xE8kG0WxQJCeszkaOq27jA4r OdMrDnM3JVnyMdl+A3iXKFMu IExBVVJFTiBFTElaQUJFVEg8 L3Rk Bcv8HHEqgVefCM7lpXQtNFcf If1ktDevzZcgSV6pJYJhclqo OZDwrG3pIARdyRBvdXqoQJ9z NTBp chmdn338DtZoBNC2GHIniUZo V8UdoJ1wIzHxMCGjTXSrG0Te gBOpSImxL959KFpxOvI8HMAx cnRp Q8JwKTRifYslGcE4v0P2Ge0n TX1kBO1pMIx7OX51NF03dZHm w1P0oSX6W3QrKRJawuvuvekk aHQ6 QNWyLQHjhW92kYNjCKplIz6s b9K9j264NYRrVZSriE47Lp4h bCrpIAVhxMGXlF9wnvkql8zr cjog LqQjDRDmPEi8QHd2FHKejFzz HiRxKGA0XeV8AAT7gSBclG1n dEeyzougrG8hCbb+NDAgWWVh cnM8 U3HgCmg7MCRggDhbMY9okCNf LXrwTl9vmKyjaZmkON9yVWUl agmsLXAckQ9qKRMqfXSdiAis MC4w BSQioogxm783NuGbLPN2OKIw yPVjA0EbsC1bZyGoUKTeACZl W3PmsHWfTRtgH589JBukAkS5 IHZl nnCjR6KbKERoeIkhRhQ9u2E1 Sn9YEN6EWPC8V2RbIuv2BJBk ySmjBY0ixZJpUWtyUa4vlJac dDog VC3vTEIlydgeQEOyyY1eDZDo aXQnqImcWL8qPZDiftsnh561 GbRxNKO4CXJdmABtY0XdeK4n OiAj QJAbALAbB5UcbAPiMYgyZ088 IPnvGqN1CFGqgwEpP0JcSOOy uWvyNkZ8n3X0Sf3LDNR2pzVx bmcg I4U3cZX2dIKphOqdbXR+PC90 lo41C1RlIcotIqj5EWTcYFP9 sVP8hV7pXGZpCRmqo7T0rVG6 J2Jv vgFltr6lo4qhQWHhXVetI67p wGKlf3Q5DQYzrSJ3EIMapKzh VzAffB17Ynt+RBUxcVqso0Tm Pjxj q5gft6jqvLc4NkMpKYEuzzBp oJccGHI4d4UeZg61B17iLVjq XTZcPVDrZKPjTCYnzEmyeb0r dG9w Ii8+PXRrtYS2tFK0bR7sFsPk XcB1OXgdW275OhIgcHXePivk e6urx8kmuZf2EqIfQWIwqmPv aWdu RLI6c8EzKn74T1ZfcWuci1Jq Gah4ro57eTLsw3D1zCW2S7Ru FJChwlofeWIyqVguBX9vWZQx bjtw JPCcwH2wJBRhG0d2HzLuXtH9 HIfdM9QiinM9SBBrlMTxDMSx nYSFmU6uzqvfq4zwwkulBdFz MDAw BUp2GHv9OCPzoSpmPiTdVPH0 AmF2SHC8cUKmtA1vhPlrypmp fA6aMvf+FKe9q9ykbKJrQB6v bWU6 MC80FO67mNKam7D5eOB4J9Md QULxoqjnbcixxYK0GGNkAPDw vL57Zh0jgPasZn8gMLFvNXJ6 IFRp lOZgR7RcxC3aCwKmVVImHQEa K5FgzLUeGJxkY209FErrQyO3 ILBzpcLxY6MuGJBsnJfmBtS2 b3A7 Mi4YCN79JQ74TO73aYTrr9Q9 bUF4W7JsAUFuzquuzzehvEB1 MHUdRGBmcL71Kd1rqZmzSd6y ZCAx ZQX2DYXrdDSwW7LcvP3xCwBh JRRzZWOrO3WfnNCiLObsD746 NYbrJyX2LKGjsiXeF9QaWUKt aWdu GkH7l2Q4Hy7DWl98MM45DS55 yQEsa4Y7eIC1E6BrRNAlkoax ryzesEO9OYFdHANhqD29Af9e dDog Jo2xOEHsJPL6UVPtpHYhR8Df sE8aPbNgDEEbNLNyY9LviXAl SVbyJ811UGqwReD0WQZtacLz Y2Fs WNRzsPcfCgW6a5L7Mc7BMAnm olj2E3VsKhdkcYZ+YM07BRVk VA12yTRhpJClk6ncoDo8UbMt MCUn IHN (more content not included)... [facility] Provider Orderson 04-30-2024 Provider Orders [id number] [facility] X-ray reportOrdered By: Arpit Meehan on 04-05-2024 Study report [facility] [address] [place] [address] XRay Report Signed Patient: Winnie Cai MR#: [id number] : 1985 Acct:[id number] Age/Sex: 38 / F ADM Date: 4 Loc: [facility] Room: Type: [facility] Attending Dr: Chuy Mojica DO Copies to: Chuy Mojica DO~ Ordering Provider: Chuy Mojica DO Date of Service: 04/05/24 XR/XR shoulder RT min 2V*: Z96.619 - Presence of unspecified artificial shoulder joint 3 views RIGHT shoulder plain film HISTORY: Status post revision of RIGHT shoulder COMPARISON: 03/08/24 ACUTE FINDINGS: None DEGENERATIVE CHANGE: Unremarkable SOFT TISSUE FINDINGS: Stable soft tissue calcification. JOINT EFFUSION: None POSTOP CHANGES: Stable hardware. Unchanged. Dialysis catheter BONY MINERALIZATION: Adequate XR/XR shoulder RT min 2V* IMPRESSION: No hardware complication. Impression dictated by: Arvind Meehan M.D.04/05/2024 9:59 PM Dictation Location: [place] [address] Transcribed By: KEN [id number] Dictated By: Arvind Meehan DO 04/05/242157 Signed By: 04/05/242158 [facility] XR shoulder RT min 2V*on XR shoulder RT min 2V* Normal Th e [facility] Coding Summaryon 03-15-2024 Coding Summary HTMLBase 64 MbvgsxukOEs2aHl+PGhlYWQ+ AD5UTCPiK37hlMHwpQ3pM7BI TElOSywgQVBQTElOSyIgbmFt OI8fgRUqWTIh IC8+CJ8tHXAoMsqmiEDbj4P4 rLU3I99tll7yRSwoaFM6VGNj MwLaqhbxn4gnwVc0QIbbIbrn OyBt SQAnvZ05XRC0gS63Hb77iFWq gQWwu0lucUl0CkXcXNFxUUA4 xXkbWHcwd8YfGZLfS46taRQj c2U6 PQQlkBjkxLHyJkDkfIY5eD3z CBzbuiyfu5jlivliLbm1yn95 vSInm9D2rBS8V9CindZ6BGXy bGQg XuqfhSJOfK0fnvgzn1ggunkp SrDjJBRjKYw3DOq3TOXboGet RnXmAQ86JJW1CCQntzHhE1Tm LWFs gEnuMeJ1y7D9Tg6DR4RAJxaj E2CPABGUULpllYW+CE40nl80 D8LwWqylSzv1URMwUKT7eVJ8 aD0n XEXsIMapk2V9sRJ6R6BcdgGy ik3dm3wzKJKhJEsrE68lxJLr t0M2KDLhgCZ2PBIpnEakDdJu aG93 Oyc+GWRjgTgxr7FoFsbkd0ue o5ftkCy4BxsfXRQnnaRqeKul RTS4z0WbTi7sKBSvfYF7gPK9 aD0i YxYgPmV6MDbpF142EzOymASi CbthA45aV0QynPA+PHRyPjx0 GVOzlOeqYE9vR4TcHTPqnxjy bGVm vHdeIG9cZXXleootNTLisI5l OFNzV1q5OoQdZhE7DUeyQ5Aa HSTetufkBa42dV3tTjOrFvK9 MGlu N3XyomG3IGBmrENhNHehNDW3 D84ia4G0WZPaPYIjBGH2sFQ2 bM9lvDgqxavotQUrtIffroCl dGlj XNcmYYadH097PSKdyPdwWgRr ZGluZyBEYXRlOiAgMTAvMjEv MjAyNDwvdGQ+ZEEqVCS6qQqx PSAn tTGjUHybOq1itOjqkTbuGM4p ANUvcrntZEFehI6eRYJjbLAn zSorEN4tBOKszmgud339AlKy MHB0 OMOdpPKhW7DwqV2kZgUoETQg VUJrO7FqsBUuQDqsU600GUim YlI1SNFskqHvL2WzYHLqmGcp OiB0 g1P5Hx0Ku5WmsvxpE7LveALi JrJfJovtBKj2Q8QrMgdlpFC+ OT54UXCuXW70FQx3PMO6tTrl PSdi NFGaR9HudV3jPsUfUHMiEUVt Oyc+PHRhYmxlIHdpZHRoPScx TOEcYmXsuVsgVO2uBl2wRTOe LWNv rLykiDWhRwWrg5bjCESbDYmz RR6uoYffU1AyzNK1ZWKnv1c7 Ic10Y70bQ8TsrYP+PGNvbCB3 aWR0 dD1cSjAoPrM8WMeyS573ByWc iQPrFuqdu8qlr2rouOn4KoD4 UGFhxrAffRdcKTF0d0PyTo88 Y29s IHdpZHRoPSIxNSUiIHZhbGln pn7luK5uAw8+ZRYyxKE5zCC9 pH6pDfTnTdC2EYpmH117RlNg cCIv Kfbqu4rgd1qlmKb3FtVfDMHu fuGjkHvqAYH9p9HdLf60I0De uTqsz0EtXra0wp14dMDoa5R0 bGU9 P3WlBALztygpxJCmsHetSO0v RKTsqpukXWCzyF0yTVNpA1s8 XsZwLzL1JZgvS7AcxhR3BRMy bGQg MHLrdSVFvL8bhjcti6nklunt JtUpEKWaJAb7FJk9QSRooRgo KjTcVKV6KyJ3AYL7bFNazI3o bGln gihkoW0qIne+ZBD2kSGmhKRU EX5vXyfliZQ+YMNaHXL4eIov VHqhNJAsbQ9yTPDkR5y4YaMv LjA1 EJlkD6OlbfU4RBMerGSkGSMk jLCAmL3wbxdxx7ztzqypAiSu QPVkSJl8IHw9IZHsmBnmRhOv ZWZ0 LyO4UQO7xBLoeE2mkSgjihpt eD0uUmd+QyqpvNddUFK3ZLo3 H9EgEax4NCCnrAxpMT3hjGCo ZGlu Yp4hpTwtmGxmCT9gWDXphixi p848DgBjt4mwZPHhhQSlSOsw TYF2Z38tz6G6ZAYxFFPzDKE5 dGV4 uP2cnMobnzrlzXJizGwlzsTj iLfnMBppCMwfQ110RUBygFbd LkElMCr4O1YoKzu9CECgbUef ZT0n mSLuORpwWk4wtNdorObbGO3n OHYuiysbp328DxZbz2xnTEPj sFKuDUogAUE7Y78nc7S3PYDg MDAw IZE9tZJ5lE9voTxizgpsqXNl gEkhbgLzjKxyHLxqZJubX245 SNXjtMppFnPmdWh4S2IaMrz9 ZCBz oFehLO3bcGMzERysFl0nyWyj nIgwJW6vTKUuzazmv911RrHc q3vdKHAiiPBiRWgoJNG2Y97r b3I6 AOVtTWRoHSD7vOV5rG1ghCfl bjogbGVmdDsgdmVydGljYWwt TXhoW883PLAcoIifYkAsdZkh bnQg WOtzTXm0T9VoDmgnrLA+PC90 SNGzSB73jQLdiXJcq9ogjFj0 GfOgTVReCTF7fKbvQVonl2Md ZXIt O77fnVAta2N0SXGbxQguwUQd ZlZqiML7kU8zEUoeqginl9ve pknhIlfjb9dfea12mI01Y60a IHdp WEHcWUQoZJYlTGLkwAhvud6x wP9aOw3+MZUdrDJ7vLY0aJ4s ZJKpXuM2AFncH158YfHabCNl Pjxj f2vkf3zjvUp4TeX3QWUfqpOe mZswYTO8s7FqXm75M03zRQws PRUzXUPjCPXnZJXanGgepk5m dG9w Ii8+CRFmoJA3yYZ0gU3bEkGk FyU4KMtdJ293OwAnuEXnTfsz A37cE0QlsBL+LVVuPcn5JTSb dHls VU1lqPSwVKsxFs0hCLK3PxLs ClHpBWihA2DvIHAqywsoqyub wWL3OUAcLULxdZ83Nt6moPld MTBw pFOXrA8qvbvkf8zxidcsKlOe PTUiPBe1GLu0USIetGehMxFt TJG6LfX0BLL6gGDieD2ecYad bjog bC9bD2IcLABwmrupBb95rH3l AnMnRfJ3DSppWni+D6wSOXUu LEyYPHVDWiDZTW35IV24eEYq c3R5 jUF4W0YuNXYahnwafzifjUM9 GJCqDTPjlT62bJYeVQwdTy9u m2C5t365SWNzSRNmlG41Ut2x dDog EHPrfAYYjR1suuxvn3hekmmb UjNeZXOaXIe7YFw5IDLcmUuu ClEtYJB6QdA1YEU8gKXteG3l bGln ukqrhE6lZiu+MDEvMjQvMTk4 NDwvdGQ+LYBuYQS3fSfxLJnh DYAcvK4tPUFqF3c1QbCqPwC7 MGlu I4DdWEBdoiwrBo89fF5rYsCo QzY3QKwlS1JgdmQ5BAYzjAEb RZpwAZL9L17is4R7RPYsLWWe MDA7 oBB0oZ8ogFetisqqxRClhWpm moKrdMloUCpdEFfvK028AQVq fAraIkZvWNakRERiVL39JM72 dGQg f8N5vKR0Z3AmMUQqqbvmknxv lPB9FRSsBELxqD55yPRsNOns Ep7qa2M9y451XIRtJLPhmM94 Zm9u yWylEOZluFDUyV4tkchaj4bx trkrFpCsDZGjNZl6KCg9HTPd aXbsFjZfMWQ1AdA6LZF1aKXs bC1h kLbbpqrpsQ1dBom+RkVNQUxF TO97LU59dPQth7H5pIN0R9Iw LLQqalkkouwdpFZ4TRXxOKQy aW47 bEPlNZjlNd9pp7C7y102QVPx SFEunD39Br9dsZapTJRnzLZX cK5semrpt4avvrzbHdBxYRRl MDt0 TCu5TYFdtKjgFeMvTNN8IdP7 YIL7jEKejD0slYnwstnmcY8q Oyc+U2U0H2StGehpfWS+PC90 YWJs ML38gQIwdGGgf4yczSi6UpYp SFQkTEN5sGymHIsvl1OhYNBz G38kkQBut5E5XOFltSagbMWb OyBl fUZ0hJ8qPPafbqbcy4swckqr Elkpm6mpvy72nV44A08fUTad OZEgVUAsUBTyMVHguIgzxc0e dG9w Ii8+MDHvoMG6wYS1vZ1oHnEn LuK4LBpyJ247TqKnoXRuPkwj z1oph8rwqXh0BjVaAKSdxgOi aWdu PFS1u0VpSb69M53bWKqfXDFf LHWqJUQbTDMibPpdtr9uuZ6a Ii8+NH5eg2zmxj59zJ03aDK+ PHRk YHO5wWohHEnyHETpkF5lVBdc FgB0ZEEeKbBcwO66kVUcUNri Mf6bsMgdqRekZH5sLPMyxklr b250 MaHmj6thWAKhsLSnMRmaLXY5 A28he3S8ILCiQHKmEOQ1kSQ8 tC5ltDhigllfsZVjxBafngAd dGlj GTfnUZnyR824RHUzhOzaDcFh zBTgS4huewONPP0oZfpabQG+ XALgZBC1jQorJAyuQGDbjJ4k LXJp O7y8TyZrBuU6TQqgD6MilfB7 ADUfaUBsFSQexKHHwS4jcwlt n2tadnvhDvIbKWQrCWy0YGm5 LWFs lAnkOrSuQLC0MwT4IYD8jEMe kM7iwTffkoosiQ3vJul+RklO OjwvdGQ+VJKpQMV3hMzjPEzs YWRk hG8hSFGhM5a1SoKxCbC1MOdl T9WfmvV8FOQmeTCzMAFvhPQR pD5kzxajg4pmolopMqZmDCUo MDt0 ORl1YOIvdAkyScOlXEA9XlC3 KRE5gPDslJ3zvHydyxuaiL8i Oyc+TVJOOjwvdGQ+PHRkIHN0 eWxl JKeoXWSvtS9uTGHqW7a2ZzSl OkG9OVlnY8AjwtU3TRIvnUCb OCWhwNGQkC7usquuv6bnitnj IzAw WRXfDGi0DRn0ZEUaiSdkWxMr JYO2LrG3UUO4nCEayR7nsZnq alzvdS4wUxy+OPE9QNE2HT50 ZD48 B1GgDjsoqSCtzFX+PHRhYmxl IHdpZHRoPScxMDAlJyBzdHls NO9xAf3kYWFsEFEgkGxyiNGo OiBj b2x (more content not included)... Normal [facility] XR shoulder RT min 2V*on XR shoulder RT min 2V* Normal [facility] XR shoulder RT min 2V*on XR shoulder RT min 2V* Normal [facility] Aerobic Cultureon 02-20-2024 Aerobic Culture Normal [facility] Comment on above: Performed By: #### A ERC ####[facility] [id number] [address] Aerobic Culture Normal [facility] Comment on above: Performed By: #### A ERC ####[facility] [id number] [address] Aerobic Culture Normal [facility] Comment on above: Performed By: #### A ERC ####[facility] Qor[address] [place] [address] Aerobic cultureOrdered By: Guanako Mojica on 02-20-2024 Bacteria identified Aer cx Nom (Unsp spec) Aerobic culture [facility] Bacteria identified Aer cx Nom (Unsp spec) Aerobic culture [facility] Anaerobic cultureOrdered By: Chuy Mojica on 02-20-2024 Bacteria identified Anaer cx Nom (Unsp spec) Anaerobic culture [facility] Bacteria identified Anaer cx Nom (Unsp spec) Anaerobic culture [facility] Bacteria identified Anaer cx Nom (Unsp spec) Anaerobic culture [facility] Automated basophil %Ordered By: Will Tran on 02-20-2024 Basophils/100 WBC (Bld) 2.0 % Normal . F [facility] Comment on above: Performed By: #### C BC, HCGQUAL, BMP ####[address] Automated basophil countOrde red By: Will Tran on 02-20-2024 Basophils (Bld) [#/Vol] 0.1 10*3/uL Normal 0.0-0.2 [facility] Comment on above: Result Comment: PERF ORMED BY:[address] [place] [id number] MEDICAL DIRECTORESTRADA GUZMAN M.D. Performed By: #### C BC, HCGQUAL, BMP ####[address] Automated blood monocyte cou ntOrdered By: Will Tran on 02-20-2024 Monocytes (Bld) [#/Vol] 0.7 10*3/uL Normal 0.0-0.8 [facility] Comment on above: Performed By: #### C BC, HCGQUAL, BMP ####[address] Automated eosinophil %Ordere d By: Will Tran on 02-20-2024 Eosinophils/100 WBC (Bld) 3.8 % Normal . [facility] Comment on above: Performed By: #### C BC, HCGQUAL, BMP ####[address] Automated eosinophil countOr dered By: Will Tran on 02-20-2024 Eosinophils (Bld) [#/Vol] 0.2 10*3/uL Normal 0.0-0.45 [facility] Comment on above: Performed By: #### C BC, HCGQUAL, BMP ####[address] Automated monocyte %Ordered By: Will Tran on 02-20-2024 Monocytes/100 WBC (Bld) 11.5 % Normal . [facility] Comment on above: Performed By: #### C BC, HCGQULUIS, BMP ####[facility] Automated neutrophil %Ordere d By: Will Tran on 02-20-2024 Neutrophils/100 WBC (Bld) 47.7 % Normal . [facility] Comment on above: Performed By: #### C EFRAÍN, HCGQULUIS, BMP ####[place] [id number] [address] Bacteria identified Aer cx N om (Unsp spec)Ordered By: Chuy Mojica on 02-20-2024 Aerobic Culture Abnormal [facility] Aerobic Culture Abnormal [facility] Basic Metabolic Panelon 01-25 Creatinine Clr Calc Pharmacy 19.28 Normal [facility] Comment on above: Performed By: #### C EFRAÍN, WESTQULUIS, BMP ####[place] [id number] [address] GFR/1.73 sq M.predicted MDRD (S/P/Bld) [Vol rate/Area] 17.120 mL/min/{1.73_m2} Normal [facility] Comment on above: Performed By: #### C CAROLINE KENNY, BMP ####[address] Basophils Auto (Bld) [#/Vol] Ordered By: Will Tran on 02-20-2024 Basophils (Bld) [#/Vol] Automated basophil count 0.0-0.2 [facility] Basophils/100 WBC Auto (Bld) Ordered By: Will Tran on 02-20-2024 Basophils/100 WBC (Bld) Automated basophil % . [facility] Calcium [Mass/volume] in Ser um or PlasmaOrdered By: Will Tran on 02-20-2024 Calcium [Mass/Vol] 9.3 mg/dL Normal 8.6-10.3 [facility] Comment on above: Performed By: #### C BC, HCGQUAL, BMP ####[place] [id number] [place] [address] [place] Calcium [Mass/Vol] Calcium [Mass/volume ] in Serum or Plasma 8.6-10.3 [facility] Carbon dioxide, total [Moles /volume] in Serum or PlasmaOrdered By: Will Tran on 02-20-2024 CO2 [Moles/Vol] 28.7 mmol/L Normal 21.0-31.0 [facility] Comment on above: Performed By: #### C BC, HCGQUAL, BMP ####[place] [id number] [facility] CO2 [Moles/Vol] Carbon dioxide, tota l [Moles/volume] in Serum or Plasma 21.0-31.0 [facility] Cell Count Diff,Synovial Flu idon 02-20-2024 Appearance, Synovial Fluid Cloudy Critically abnormal Clear [facility] Comment on above: Order Comment: Comme nt needs WBC, Neutrophil % and RBC Synovial Fluid Source: Right Shoulder Synovial Fluid Site: Right Shoulder Performed By: #### S YNCT ####[place] [id number] [facility] Color, Synovial Fluid Red Critically abnormal Clrless-Str [facility] Comment on above: Order Comment: Comme nt needs WBC, Neutrophil % and RBC Synovial Fluid Source: Right Shoulder Synovial Fluid Site: Right Shoulder Performed By: #### S YNCT ####[place] [id number] [facility] Color, Synovial Supernatant Red Normal [facility] Comment on above: Order Comment: Comme nt needs WBC, Neutrophil % and RBC Synovial Fluid Source: Right Shoulder Synovial Fluid Site: Right Shoulder Result Comment: The reference interval and other method performance specifications have not been established for this body fluid. The test result must be integrated into the clinical context for interpretation. Performed By: #### S YNCT ####[place] [id number] [facility] Eosinophils,Synovial Fluid 0 % Normal 0-2 [facility] Comment on above: Order Comment: Comme nt needs WBC, Neutrophil % and RBC Synovial Fluid Source: Right Shoulder Synovial Fluid Site: Right Shoulder Result Comment: PERF ORMED BY:[place] [address] [place] [phone] MEDICAL DIRECTORESTRADA GUZMAN M.D. Performed By: #### S YNCT ####[address] [address] [facility] Lymphocytes, Synovial Fluid 21 % Normal 0-74 [facility] Comment on above: Order Comment: Comme nt needs WBC, Neutrophil % and RBC Synovial Fluid Source: Right Shoulder Synovial Fluid Site: Right Shoulder Performed By: #### S YNCT ####[address] [address] [facility] Monocyte/Histiocyte,Syn ov.Fld. 8 % Normal 0-69 [facility] Comment on above: Order Comment: Comme nt needs WBC, Neutrophil % and RBC Synovial Fluid Source: Right Shoulder Synovial Fluid Site: Right Shoulder Performed By: #### S YNCT ####[address] [address] [facility] Neutrophils, Synovial Fluid 71 % High 0-24 [facility] Comment on above: Order Comment: Comme nt needs WBC, Neutrophil % and RBC Synovial Fluid Source: Right Shoulder Synovial Fluid Site: Right Shoulder Performed By: #### S YNCT ####[address] [address] [facility] RBC, Synovial Fluid [id number] High 0-0 [facility] Comment on above: Order Comment: Comme nt needs WBC, Neutrophil % and RBC Synovial Fluid Source: Right Shoulder Synovial Fluid Site: Right Shoulder Performed By: #### S YNCT ####[address] [address] [facility] TNC, Synovial Fluid 1690 High 0-150 [facility] Comment on above: Order Comment: Comme nt needs WBC, Neutrophil % and RBC Synovial Fluid Source: Right Shoulder Synovial Fluid Site: Right Shoulder Result Comment: The reference interval and other method performance specifications have not been established for this body fluid. The test result must be integrated into the clinical context for interpretation. Performed By: #### S YNCT ####[place] [id number] [facility] Cells Counted Total [#] in B darling fluidOrdered By: Chuy Mojica on 02-20-2024 Cells Counted Total (Body fld) [#] 1690 mm^3 High 0-150 [facility] Comment on above: The reference interv al and other method performance specifications have not been established for this body fluid. The test result must be integrated into the clinical context for interpretation. Cells Counted Total (Body fld) [#] Cells Counted Total [#] in Body fluid High 0-150 [facility] Comment on above: The reference interv al and other method performance specifications have not been established for this body fluid. The test result must be integrated into the clinical context for interpretation. Chloride [Moles/volume] in S jie or PlasmaOrdered By: Will Tran on 02-20-2024 Chloride [Moles/Vol] 93 mmol/L Low 98-107 [facility] Comment on above: Performed By: #### C BC, HCGQUAL, BMP ####[place] [id number] [address] Chloride [Moles/Vol] Chloride [Moles/vol ume] in Serum or Plasma Low 98-107 [facility] Choriogonadotropin.beta subu nit [Units/volume] in Serum or PlasmaOrdered By: Will Tran on 02-20-2024 HCG.beta subunit Qn Indeterminate [facility] Comment on above: Result may be indica tive of an early but should be interpreted in light of the clinical findings and supported by retesting in 48 hours if indicated. HCG.beta subunit Qn Choriogonadotropin.b eta subunit [Units/volume] in Serum or Plasma [facility] Comment on above: Result may be indica tive of an early but should be interpreted in light of the clinical findings and supported by retesting in 48 hours if indicated. Complete Blood Count Auto Di ffon 02-20-2024 Mean Corpuscular HGB Conc 32.9 g/dL Normal 32.0-35.0 [facility] Comment on above: Performed By: #### C BC, HCGQUAL, BMP ####[facility] [id number] [place] [id number] [facility] NRBC% 0.1 /100{WBC} Normal 0-0.5 [facility] Comment on above: Performed By: #### C CAROLINE KENNY BMP ####[place] [id number] [address] Creatinine [Mass/volume] in Serum or PlasmaOrdered By: Will Tran on 02-20-2024 Creatinine [Mass/Vol] 3.35 mg/dL High 0.60-1.20 [facility] Comment on above: Performed By: #### C CAROLINE KENNY BMP ####[place] [id number] [address] Creatinine [Mass/Vol] Creatinine [Mass/v olume] in Serum or Plasma High 0.60-1.20 [facility] Determination of appearance of body fluidOrdered By: Chuy Mojica on 02-20-2024 Appearance (Body fld) Cloudy Abnormal Clear [facility] Appearance (Body fld) Determination of appearance of body fluid Abnormal Clear [facility] Eosinophils Auto (Bld) [#/Vo l]Ordered By: Will Tran on 02-20-2024 Eosinophils (Bld) [#/Vol] Automated eosinophil count 0.0-0.45 [facility] Eosinophils/100 WBC Auto (Bl d)Ordered By: Will Tran on 02-20-2024 Eosinophils/100 WBC (Bld) Automated eosinophil % . [facility] Erythrocyte distribution wid th Auto (RBC) [Ratio]Ordered By: Will Tran on 02-20-2024 Erythrocyte distribution width (RBC) [Ratio] Erythrocyte distribution width [Ratio] by Automated count High 11.9-15.3 [facility] Erythrocyte distribution wid th [Ratio] by Automated countOrdered By: Will Tran on 02-20-2024 Erythrocyte distribution width (RBC) [Ratio] 18.2 % High 11.9-15.3 [facility] Comment on above: Performed By: #### C CAROLINE KENNY BMP ####[facility] [id number] Erythrocytes [#/volume] in B lood by Automated countOrdered By: Will Tran on 02-20-2024 RBC (Bld) [#/Vol] 3.31 10*6/uL Low 3.60-5.00 [facility] Comment on above: Performed By: #### C CAROLINE KENNY BMP ####[facility] [id number] [place] [address] [facility] Erythrocytes [#/volume] in B darling fluid by Automated countOrdered By: Chuy Mojica on 02-20-2024 RBC Auto (Body fld) [#/Vol] [id number] mm^3 High 00 [facility] [facility] RBC Auto (Body fld) [#/Vol] Erythrocytes [#/volume] in Body fluid by Automated count High 00 [facility] Evaluation of color of body fluidOrdered By: Chuy Mojica on 02-20-2024 Color (Body fld) Red Abnormal [facility] Color (Body fld) Evaluation of color of body fluid Abnormal [facility] Glucose [Mass/volume] in Ser um or PlasmaOrdered By: Will Tran on 02-20-2024 Glucose [Mass/Vol] 72 mg/dL Normal 70-100 [facility] Comment on above: ADA recommended refe rence rangeRandom Glucose Reference Range is dependent on time and content of last meal. Glucose of more than 200 mg/dL in a nonstressed, ambulatory subject supports the diagnosis of Diabetes Mellitus. Result Comment: [place] Glucose Reference Range is dependent on time and content of last meal. Glucose of more than 200 mg/dL in a nonstressed, ambulatory subject supports the diagnosis of Diabetes Mellitus. ADA recommended reference range Performed By: #### C CAROLINE KENNY BMP ####[facility] [address] [place] [address] [facility] Glucose [Mass/Vol] Glucose [Mass/volume ] in Serum or Plasma 70-100 [facility] Comment on above: ADA recommended refe rence rangeRandom Glucose Reference Range is dependent on time and content of last meal. Glucose of more than 200 mg/dL in a nonstressed, ambulatory subject supports the diagnosis of Diabetes Mellitus. Gram stain for investigation of transfusion reactionOrdered By: Chuy Mojica on 02-20-2024 Microscopic observation Gram stain Nom (Unsp spec) No Anaerobes Isolated 1 Day [facility] Microscopic observation Gram stain Nom (Unsp spec) No Anaerobes Isolated 3 Days [facility] Microscopic observation Gram stain Nom (Unsp spec) No Anaerobes Isolated 1 Day [facility] Microscopic observation Gram stain Nom (Unsp spec) Staphylococcus epidermidis Abnormal [facility] Microscopic observation Gram stain Nom (Unsp spec) No Anaerobes Isolated 1 Day [facility] Microscopic observation Gram stain Nom (Unsp spec) No Anaerobes Isolated 3 Days [facility] Microscopic observation Gram stain Nom (Unsp spec) Staphylococcus epidermidis Abnormal [facility] Gram stain microscopyOrdered By: Chuy Mojica on 02-20-2024 Microscopic observation Gram stain Nom (Unsp spec) Gram stain microscopy [facility] Microscopic observation Gram stain Nom (Unsp spec) Gram stain microscopy [facility] Microscopic observation Gram stain Nom (Unsp spec) Gram stain microscopy [facility] HCG,Qualitative Serumon 01-25 HCG,Qualitative Serum Indeterminate Normal [facility] Comment on above: Result Comment: Resu lt may be indicative of an early but should be interpreted in light of the clinical findings and supported by retesting in 48 hours if indicated.PERFORMED BY:[address] [place], [place] [phone] MEDICAL DIRECTORESTRADA GUZMAN M.D. Performed By: #### C EFRAÍN, HCGQULUIS, BMP ####[id number] [place] [address] [facility] Hematocrit Auto (Bld) [Volum e fraction]Ordered By: Will Tran on 02-20-2024 Hematocrit (Bld) [Volume fraction] Hematocrit [Volume Fraction] of Blood by Automated count Low 34.0-46.4 [facility] Hematocrit [Volume Fraction] of Blood by Automated countOrdered By: Will Tran on 02-20-2024 Hematocrit (Bld) [Volume fraction] 31.6 % Low 34.0-46.4 [facility] Comment on above: Performed By: #### C EFRAÍN, HCGQUAL, BMP ####[address] [address] [facility] Hemoglobin [Mass/volume] in BloodOrdered By: Will Tran on 02-20-2024 Hemoglobin (Bld) [Mass/Vol] 10.4 g/dL Low 11.8-15.4 [facility] Comment on above: Performed By: #### C EFRAÍN, CAROLINE, UTE ####[facility] [address] [place] [id number] [facility] Hemoglobin (Bld) [Mass/Vol] Hemoglobin [Mass/volume] in Blood Low 11.8-15.4 [facility] Leukocytes [#/volume] correc [place] for nucleated erythrocytes in Blood by Automated counOrdered By: Will Tran on 02-20-2024 WBC corrected for nucl RBC Auto (Bld) [#/Vol] 6.5 10*3/uL 3.8-11.6 [facility] WBC corrected for nucl RBC Auto (Bld) [#/Vol] Leukocytes [#/volume] corrected for nucleated erythrocytes in Blood by Automated coun 3.8-11.6 [facility] Leukocytes [#/volume] in Blo od by Automated countOrdered By: Will Tran on 02-20-2024 WBC (Bld) [#/Vol] 6.5 10*3/uL Normal 3.8-11.6 [facility] Comment on above: Performed By: #### C CAROLINE KENNY, UTE ####[facility] [address] [place] [id number] [facility] Lymphocytes Auto (Bld) [#/Vo l]Ordered By: Will Tran on 02-20-2024 Lymphocytes (Bld) [#/Vol] Lymphocytes [#/volume] in Blood by Automated count 1.00-4.8 [facility] Lymphocytes [#/volume] in Bl ood by Automated countOrdered By: Will Tran on 02-20-2024 Lymphocytes (Bld) [#/Vol] 2.3 10*3/uL Normal 1.00-4.8 [facility] Comment on above: Performed By: #### C EFRAÍN, WESTQULUIS, BMP ####[facility] [address] Lymphocytes/100 WBC Auto (Bl d)Ordered By: Will Tran on 02-20-2024 Lymphocytes/100 WBC (Bld) Lymphocytes/100 leukocytes in Blood by Automated count . [facility] Lymphocytes/100 leukocytes i n Blood by Automated countOrdered By: Will Tran on 02-20-2024 Lymphocytes/100 WBC (Bld) 35.0 % Normal . [facility] Comment on above: Performed By: #### C EFRAÍN, HCGQUAL, BMP ####[address] [facility]CH Auto (RBC) [Entitic mass ]Ordered By: Will Tran on 02-20-2024 MCH (RBC) [Entitic mass] MCH [Entitic mass] by Automated count 24.7-34.3 [facility] MCH [Entitic mass] by Automa saskia countOrdered By: Will Tran on 02-20-2024 MCH (RBC) [Entitic mass] 31.4 pg Normal 24.7-34.3 [facility] Comment on above: Performed By: #### C EFRAÍN, HCGQUAL, BMP ####[address] MCHC Auto (RBC) [Mass/Vol]Or dered By: Will Tran on 02-20-2024 MCHC (RBC) [Mass/Vol] 32.9 g/dL 32.0-35.0 [facility] MCHC (RBC) [Mass/Vol] MCHC [Mass/volume] by Automated count 32.0-35.0 [facility] MCV Auto (RBC) [Entitic vol] Ordered By: Will Tran on 02-20-2024 MCV (RBC) [Entitic vol] MCV [Entitic vol ume] by Automated count 80-100 [facility] MCV [Entitic volume] by Auto mated countOrdered By: Will Tran on 02-20-2024 MCV (RBC) [Entitic vol] 95.5 fL Normal 80-[address] [facility] Comment on above: Performed By: #### C BC, HCGQUAL, BMP ####[facility] [address] [place] [id number] [facility] Manual body fluid eosinophil s/100 leukocytesOrdered By: Chuy Mojica on 02-20-2024 Eosinophils/100 WBC Manual cnt (Body fld) 0 % 0-2 [facility] Eosinophils/100 WBC Manual cnt (Body fld) Manual body fluid eosinophils/100 leukocytes 0-2 [facility] Manual body fluid lymphocyte s/100 leukocytesOrdered By: Chuy Mojica on 02-20-2024 Lymphocytes/100 WBC Manual cnt (Body fld) 21 % 0-74 [facility] Lymphocytes/100 WBC Manual cnt (Body fld) Manual body fluid lymphocytes/100 leukocytes 0-74 [facility] Monocytes Auto (Bld) [#/Vol] Ordered By: Will Tran on 02-20-2024 Monocytes (Bld) [#/Vol] Automated blood monocyte count 0.0-0.8 [facility] Monocytes/100 WBC Auto (Bld) Ordered By: Will Tran on 02-20-2024 Monocytes/100 WBC (Bld) Automated monocyte % . [facility] Neutrophils Auto (Bld) [#/Vo l]Ordered By: Will Tran on 02-20-2024 Neutrophils (Bld) [#/Vol] Neutrophils [#/volume] in Blood by Automated count 1.8-7.7 [facility] Neutrophils [#/volume] in Bl ood by Automated countOrdered By: Will Tran on 02-20-2024 Neutrophils (Bld) [#/Vol] 3.1 10*3/uL Normal 1.8-7.7 [facility] Comment on above: Performed By: #### C BC, HCGQUAL, BMP ####[facility] [address] [place] [id number] [facility] Neutrophils/100 WBC Auto (Bl d)Ordered By: Will Tran on 02-20-2024 Neutrophils/100 WBC (Bld) Automated neutrophil % . [facility] Neutrophils/100 WBC Manual c nt (Body fld)Ordered By: Chuy Mojica on 02-20-2024 Neutrophils/100 WBC (Body fld) 71 % High 0-24 [facility] Neutrophils/100 WBC (Body fld) Manual body fluid neutrophils/100 leukocytes High 0-24 [facility] No Panel InformationOrdered By: Chuy Mojica on 02-20-2024 Synovial Fluid Supernatant Color Red [facility] Comment on above: The reference interv al and other method performance specifications have not been established for this body fluid. The test result must be integrated into the clinical context for interpretation. No Panel InformationOrdered By: Wlil Tran on 02-20-2024 Estimated GFR (CKD-EPI) 17.120 mL/Min [facility] Creatinine Clearance (Chem 19.28 [facility] Nucleated erythrocytes [Pres ence] in Blood by Automated countOrdered By: Will Tran on 02-20-2024 Nucleated RBC Auto Ql (Bld) 0.1 /100{WBC} 0-0.5 [facility] Nucleated RBC Auto Ql (Bld) Nucleated erythrocytes [Presence] in Blood by Automated count 0-0.5 [facility] Platelet mean volume Auto (B ld) [Entitic vol]Ordered By: Will Tran on 02-20-2024 Platelet mean volume (Bld) [Entitic vol] Platelet mean volume [Entitic volume] in Blood by Automated count 6.3-10.7 [facility] Platelet mean volume [Entiti c volume] in Blood by Automated countOrdered By: Will Tran on 02-20-2024 Platelet mean volume (Bld) [Entitic vol] 7.5 fL Normal 6.3-10.7 [facility] Comment on above: Performed By: #### C BC, HCGQUAL, BMP ####[facility] [id number] [id number] [facility] Platelets Auto (Bld) [#/Vol] Ordered By: Will Tran on 02-20-2024 Platelets (Bld) [#/Vol] Platelets [#/vol ume] in Blood by Automated count 150-450 [facility] Platelets [#/volume] in Bloo d by Automated countOrdered By: Will Tran on 02-20-2024 Platelets (Bld) [#/Vol] 247 10*3/uL Normal 150-450 [facility] Comment on above: Performed By: #### C CAROLINE KENNY BMP ####[address] [place] [address] [facility] Potassium [Moles/volume] in Serum or PlasmaOrdered By: Will Tran on 02-20-2024 Potassium [Moles/Vol] 4.5 mmol/L Normal 3.5-5.1 [facility] Comment on above: Performed By: #### C CAROLINE KENNY, UTE ####[address] [place] [address] [facility] Potassium [Moles/Vol] Potassium [Moles/v olume] in Serum or Plasma 3.5-5.1 [facility] RBC Auto (Bld) [#/Vol]Ordere d By: Will Tran on 02-20-2024 RBC (Bld) [#/Vol] Erythrocytes [#/volu me] in Blood by Automated count Low 3.60-5.00 [facility] Serum or plasma anion gap de terminationOrdered By: Will Tran on 02-20-2024 Anion gap [Moles/Vol] 10.8 mmol/L Normal 6.0-15.0 [facility] Comment on above: Performed By: #### C CAROLINE KENNY BMP ####[address] [place] [address] [facility] Anion gap [Moles/Vol] Serum or plasma an ion gap determination 6.0-15.0 [facility] Sodium [Moles/volume] in Ser um or PlasmaOrdered By: Will Tran on 02-20-2024 Sodium [Moles/Vol] 128 mmol/L Low 136-145 [facility] Comment on above: Performed By: #### C CAROLINE KENNY, BMP ####[address] [place] [address] [facility] Sodium [Moles/Vol] Sodium [Moles/volume ] in Serum or Plasma Low 136-145 [facility] Synovial fluid differential cell countOrdered By: Chuy Mojica on 02-20-2024 Differential panel (Syn fld) 8 % 0- [facility] Differential panel (Syn fld) Synovial fluid differential cell count 0-69 [facility] Urea nitrogen [Mass/volume] in Serum or PlasmaOrdered By: Will Tran on 02-20-2024 Urea nitrogen [Mass/Vol] 23 mg/dL Normal 12-17 [facility] Comment on above: Performed By: #### C BC, HCGQUAL, BMP ####[id number] [facility] Urea nitrogen [Mass/Vol] Urea nitrogen [Mass/volume] in Serum or Plasma 12-17 [facility] WBC Auto (Bld) [#/Vol]Ordere d By: Will Tran on 02-20-2024 WBC (Bld) [#/Vol] Leukocytes [#/volume ] in Blood by Automated count 3.8-11.6 [facility] XR shoulder LT min 2V*on XR shoulder LT min 2V* Normal Th e [facility] XR shoulder RT 1Von 02-20-20 XR shoulder RT 1V Normal [facility] XR shoulder RT 1V Normal [facility] .Auto Diff 1on 02-19-2024 Auto [place] % 14 % High 1-12 [facility] Comment on above: Performed By: #### 2 [id number], [id number], 0456962, 8262325, [id number] ####[facility] (DEFAULT)[address] [place] [address] Baso Abs# 0.2 x10 Normal 0.0-0.2 [facility] Comment on above: Performed By: #### 2 823002, 3082506, 9169517, 7048736, [id number] ####[facility] (DEFAULT)[address] [place] [address] Basophils/100 WBC (Bld) 3.0 % High 0.2-2.0 [facility] Comment on above: Performed By: #### 2 876274, 3657508, 0058026, 1652850, 38883557 ####[facility] (DEFAULT)[address] [place] [address] Eos Abs# 0.2 x10 Normal 0.0-0.4 [facility] Comment on above: Performed By: #### 2 548581, 4992472, 0335434, 8687950, 74669634 ####[facility] (DEFAULT)[address] [place] [address] Eosinophils/100 WBC (Bld) 2.8 % Normal 0.9-4.0 [facility] Comment on above: Performed By: #### 2 921451, 9013117, 1418223, 7683646, [id number] ####[facility] (DEFAULT)[address] [place] [address] Lymph Abs# 2.8 x10 Normal 1.3-2.9 [facility] Comment on above: Performed By: #### 2 103235, 4988987, 2859741, 0828766, 13373679 ####[facility] (DEFAULT)[address] [place] [address] Lymphocytes/100 WBC (Bld) 37 % Normal 14-48 [facility] Comment on above: Performed By: #### 2 741878, 5022752, 8603432, 9937593, 91065385 ####[facility] (DEFAULT)[address] [place] [address] [place] Abs# 1.0 x10 High 0.0-0.8 [facility] Comment on above: Performed By: #### 2 121178, 0039571, 1052190, 6310449, [id number] ####[facility] (DEFAULT)[address] [place] [address] Neut Abs# 3.4 x10 Normal 1.5-9.2 [facility] Comment on above: Performed By: #### 2 009777, 3416395, 6328363, 0163357, 07392092 ####[facility] (DEFAULT)[address] [place] [address] Neutrophils/100 WBC (Bld) 44 % Normal 44-88 [facility] Comment on above: Performed By: #### 2 545012, 6723910, 1652449, 8382932, [id number] ####[facility] (DEFAULT)[address] [place] [address] CBC w/ Auto Diffon Erythrocyte distribution width (RBC) [Ratio] 18.7 % High 11.5-15.0 [facility] Comment on above: Performed By: #### 2 643090, 7035084, 2173026, 0043338, 68468178 ####[facility] (DEFAULT)[address] [place] [address] Hematocrit (Bld) [Volume fraction] 30.9 % Low 33.7-40.4 [facility] Comment on above: Performed By: #### 2 983630, 3756023, 7033141, 0919329, 60377523 ####[facility] (DEFAULT)[address] [place] [address] Hemoglobin (Bld) [Mass/Vol] 9.9 g/dL Low 11.3-15.9 [facility] Comment on above: Performed By: #### 2 318960, 6503145, 4307780, 7219826, [id number] ####[facility] (DEFAULT)[address] [place] [address] Man Diff? Auto Invalid Interpretation Code [facility] Comment on above: Performed By: #### 2 130726, 8003151, 3071711, 2587844, [id number] ####[facility] (DEFAULT)[address] [place] [address] MCH (RBC) [Entitic mass] 31 pg Normal 24-34 [facility] Comment on above: Performed By: #### 2 760276, 0217018, 2318252, 2757095, 71586143 ####[facility] (DEFAULT)[address] [place] [address] MCHC (RBC) [Mass/Vol] 32 g/dL Normal 26-37 [facility] Comment on above: Performed By: #### 2 582705, 4009577, 0853148, 4956539, 89085106 ####[facility] (DEFAULT)[address] [place] [address] MCV (RBC) [Entitic vol] 96 fL Normal 81-100 [facility] Comment on above: Performed By: #### 2 413683, 0950770, 3803015, 8546058, [id number] ####[facility] (DEFAULT)[address] [place] [address] Platelet 249 x10 Normal 138-427 [facility] Comment on above: Performed By: #### 2 489480, 0020559, 1613613, 9237220, 06820895 ####[facility] (DEFAULT)[address] [place] [address] Platelet mean volume (Bld) [Entitic vol] 7.2 fL Normal 6.3-10.2 [facility] Comment on above: Performed By: #### 2 777457, 6625415, 4610871, 6870137, 78827152 ####[facility] (DEFAULT)[address] [place] [address] RBC 3.21 x10 Low 3.70-5.30 [facility] Comment on above: Performed By: #### 2 817279, 8200538, 0908859, 8022304, 89322190 ####[facility] (DEFAULT)[address] [place] [address] WBC 7.8 x10 Normal 3.5-10.5 [facility] Comment on above: Performed By: #### 2 266185, 3041735, 8241502, 6506420, 95238390 ####[facility] (DEFAULT)[address] [place] [address] CRPon 02-19-2024 CRP 3.1 mg/dL High <=0.5 [facility] Comment on above: Performed By: #### 2 873847, 3078923, 7910433, 9998965, 13862683 ####[facility] (DEFAULT)[address] [place] [address] D-Dimeron 02-19-2024 D-Dimer 10.77 mg/L FEU High 0.19-0.50 [facility] Comment on above: Result Comment: Resu lts Called To Maria Fernanda Paredes By HAYDEN And Read Back For Confirmation On 02/19/2024 14:13:29 EDT. The INNOVANCE D-Dimer assay (Cutoff Value of > 0.50) is intended for the use as an aid in the diagnosis of venous thromboembolism (VTE) deep vein thrombosis (DVT) or pulmonary embolism (PE). The measurement of D-Dimer should not be used as an aid in the diagnosis of VTE in patients with: ? Therapeutic dose anticoagulant therapy for >24 hours ? Fibrinolytic therapy within previous 7 days ? Trauma or surgery within previous 4 weeks ? Disseminated malignancies ? Aortic aneurysm ? Sepsis, sever infections, pneumonia, severe skin infections ? Liver cirrhosis ? Performed By: #### 2 489067, 9003896, 5413034, 4028210, 93398798 ####[facility] (DEFAULT)[address] [place] [address] Provider Orderson 02-19-2024 Provider Orders [id number] TIFF Normal [facility] Sed Rateon 02-19-2024 Sed Rate 50 mm/hr High 0-20 [facility] Comment on above: Performed By: #### 2 070518, 6170545, 9815073, 1124771, 99382849 ####[facility] (DEFAULT)[address] [place] [address] CT shoulder RT wo conon 01-25 CT shoulder RT wo con Normal [facility] XR shoulder RT min 2V*on XR shoulder RT min 2V* Normal Th e [facility] Automated basophil %Ordered By: Chuy Mojica on 02-04-2024 Basophils/100 WBC (Bld) 1.7 % Normal . F [facility] Comment on above: Performed By: #### C ####[facility] [address] [place] [address] [facility] Automated basophil countOrde red By: Chuy Mojica on 02-04-2024 Basophils (Bld) [#/Vol] 0.1 10*3/uL Normal 0.0-0.2 [facility] Comment on above: Result Comment: PERF ORMED BY:[address] [place] [phone] MEDICAL DIRECTORESTRADA GUZMAN M.D. Performed By: #### C BC ####[place] [id number] [facility] Automated blood monocyte cou ntOrdered By: Chuy Mojica on 02-04-2024 Monocytes (Bld) [#/Vol] 0.8 10*3/uL Normal 0.0-0.8 [facility] Comment on above: Performed By: #### C BC ####[address] Automated eosinophil %Ordere d By: Chuy Mojica on 02-04-2024 Eosinophils/100 WBC (Bld) 2.7 % Normal . [facility] Comment on above: Performed By: #### C BC ####[address] Automated eosinophil countOr dered By: Chuy Mojica on 02-04-2024 Eosinophils (Bld) [#/Vol] 0.2 10*3/uL Normal 0.0-0.45 [facility] Comment on above: Performed By: #### C BC ####[place] [id number] [facility] Automated monocyte %Ordered By: Chuy Mojica on 02-04-2024 Monocytes/100 WBC (Bld) 9.0 % Normal . F [facility] Comment on above: Performed By: #### C BC ####[place] [id number] [facility] Automated neutrophil %Ordere d By: Chuy Mojica on 02-04-2024 Neutrophils/100 WBC (Bld) 53.3 % Normal . [facility] Comment on above: Performed By: #### C BC ####[place] [id number] [facility] Basic Metabolic Panelon 01-24 Creatinine Clr Calc Pharmacy 28.20 Normal [facility] Comment on above: Order Comment: Label s sent to surg prep @ 1120. Patient to arrive at 1230. MLG Result Comment: PERF ORMED BY:[address] [place] [id number] MEDICAL DIRECTORESTRADA GUZMAN M.D. Performed By: #### C BC, BMP ####[address] [place] [address] [facility] GFR/1.73 sq M.predicted MDRD (S/P/Bld) [Vol rate/Area] 27.024 mL/min/{1.73_m2} Normal [facility] Comment on above: Order Comment: Label s sent to surg prep @ 1120. Patient to arrive at 1230. MLG Performed By: #### C BC, BMP ####[address] [address] [facility] Basophils Auto (Bld) [#/Vol] Ordered By: Chuy Mojica on 02-04-2024 Basophils (Bld) [#/Vol] Automated basophil count 0.0-0.2 [facility] Basophils/100 WBC Auto (Bld) Ordered By: Chuy Mojica on 02-04-2024 Basophils/100 WBC (Bld) Automated basophil % . [facility] Calcium [Mass/volume] in Ser um or PlasmaOrdered By: Will Tran on 02-04-2024 Calcium [Mass/Vol] 8.7 mg/dL Normal 8.6-10.3 [facility] Comment on above: Order Comment: Label s sent to surg prep @ 1120. Patient to arrive at 1230. MLG Performed By: #### C BC, BMP ####[address] [address] [facility] Calcium [Mass/Vol] Calcium [Mass/volume ] in Serum or Plasma 8.6-10.3 [facility] Carbon dioxide, total [Moles /volume] in Serum or PlasmaOrdered By: Will Tran on 02-04-2024 CO2 [Moles/Vol] 28.8 mmol/L Normal 21.0-31.0 [facility] Comment on above: Order Comment: Label s sent to surg prep @ 1120. Patient to arrive at 1230. MLG Performed By: #### C BC, BMP ####[address] CO2 [Moles/Vol] Carbon dioxide, tota l [Moles/volume] in Serum or Plasma 21.0-31.0 [facility] Chloride [Moles/volume] in S jie or PlasmaOrdered By: Will Tran on 02-04-2024 Chloride [Moles/Vol] 98 mmol/L Normal 98-107 [facility] Comment on above: Order Comment: Label s sent to surg prep @ 1120. Patient to arrive at 1230. MLG Performed By: #### C BC, BMP ####[address] Chloride [Moles/Vol] Chloride [Moles/vol ume] in Serum or Plasma 98-107 [facility] Complete Blood Count Auto Di ffon 02-04-2024 Mean Corpuscular HGB Conc 33.5 g/dL Normal 32.0-35.0 [facility] Comment on above: Performed By: #### C BC ####[address] NRBC% 0.1 /100{WBC} Normal 0-0.5 [facility] Comment on above: Performed By: #### C BC ####[address] Order Comment: Label s sent to surg prep @ 1120. Patient to arrive at 1230. MLG Performed By: #### C BC, BMP ####[address] Basophils (Bld) [#/Vol] 0.2 10*3/uL Normal 0.0-0.2 [facility] Comment on above: Order Comment: Label s sent to surg prep @ 1120. Patient to arrive at 1230. MLG Result Comment: PERF ORMED BY:[address] [place] [id number] MEDICAL DIRECTORESTRAAD GUZMAN M.D. Performed By: #### C BC, BMP ####[place] [id number] [facility] Basophils/100 WBC (Bld) 2.5 % Normal . Shailesh hess [facility] Comment on above: Order Comment: Label s sent to surg prep @ 1120. Patient to arrive at 1230. MLG Performed By: #### C BC, BMP ####[place] [id number] [facility] Eosinophils (Bld) [#/Vol] 0.3 10*3/uL Normal 0.0-0.45 [facility] Comment on above: Order Comment: Label s sent to surg prep @ 1120. Patient to arrive at 1230. MLG Performed By: #### C BC, BMP ####[place] [id number] [facility] Eosinophils/100 WBC (Bld) 3.5 % Normal . [facility] Comment on above: Order Comment: Label s sent to surg prep @ 1120. Patient to arrive at 1230. MLG Performed By: #### C BC, BMP ####[place] [id number] [facility] Erythrocyte distribution width (RBC) [Ratio] 21.1 % High 11.9-15.3 [facility] Comment on above: Order Comment: Label s sent to surg prep @ 1120. Patient to arrive at 1230. MLG Performed By: #### C BC, BMP ####[place] [id number] [facility] Hematocrit (Bld) [Volume fraction] 28.7 % Low 34.0-46.4 [facility] Comment on above: Order Comment: Label s sent to surg prep @ 1120. Patient to arrive at 1230. MLG Performed By: #### C BC, BMP ####[place] [id number] [facility] Hemoglobin (Bld) [Mass/Vol] 9.4 g/dL Low 11.8-15.4 [facility] Comment on above: Order Comment: Label s sent to surg prep @ 1120. Patient to arrive at 1230. MLG Performed By: #### C BC, BMP ####[address] Lymphocytes (Bld) [#/Vol] 2.1 10*3/uL Normal 1.00-4.8 [facility] Comment on above: Order Comment: Label s sent to surg prep @ 1120. Patient to arrive at 1230. MLG Performed By: #### C BC, BMP ####[address] Lymphocytes/100 WBC (Bld) 25.2 % Normal . [facility] Comment on above: Order Comment: Label s sent to surg prep @ 1120. Patient to arrive at 1230. MLG Performed By: #### C BC, BMP ####[address] MCH (RBC) [Entitic mass] 30.9 pg Normal 24.7-34.3 [facility] Comment on above: Order Comment: Label s sent to surg prep @ 1120. Patient to arrive at 1230. MLG Performed By: #### C BC, BMP ####[address] MCV (RBC) [Entitic vol] 93.9 fL Normal 80-100 [facility] Comment on above: Order Comment: Label s sent to surg prep @ 1120. Patient to arrive at 1230. MLG Performed By: #### C BC, BMP ####[address] Mean Corpuscular HGB Conc 32.9 g/dL Normal 32.0-35.0 [facility] Comment on above: Order Comment: Label s sent to surg prep @ 1120. Patient to arrive at 1230. MLG Performed By: #### C BC, BMP ####[address] Monocytes (Bld) [#/Vol] 0.9 10*3/uL High 0.0-0.8 [facility] Comment on above: Order Comment: Label s sent to surg prep @ 1120. Patient to arrive at 1230. MLG Performed By: #### C BC, BMP ####[address] [address] [facility] Monocytes/100 WBC (Bld) 10.5 % Normal . [facility] Comment on above: Order Comment: Label s sent to surg prep @ 1120. Patient to arrive at 1230. MLG Performed By: #### C BC, BMP ####[address] [address] [facility] Neutrophils (Bld) [#/Vol] 4.8 10*3/uL Normal 1.8-7.7 [facility] Comment on above: Order Comment: Label s sent to surg prep @ 1120. Patient to arrive at 1230. MLG Performed By: #### C BC, BMP ####[address] [address] [facility] Neutrophils/100 WBC (Bld) 58.3 % Normal . [facility] Comment on above: Order Comment: Label s sent to surg prep @ 1120. Patient to arrive at 1230. MLG Performed By: #### C BC, BMP ####[address] [address] [facility] Platelet mean volume (Bld) [Entitic vol] 7.8 fL Normal 6.3-10.7 [facility] Comment on above: Order Comment: Label s sent to surg prep @ 1120. Patient to arrive at 1230. MLG Performed By: #### C BC, BMP ####[address] [address] [place] Platelets (Bld) [#/Vol] 281 10*3/uL Normal 150-450 [facility] Comment on above: Order Comment: Label s sent to surg prep @ 1120. Patient to arrive at 1230. MLG Performed By: #### C BC, BMP ####[address] [address] [place] RBC (Bld) [#/Vol] 3.05 10*6/uL Low 3.60-5.00 [facility] Comment on above: Order Comment: Label s sent to surg prep @ 1120. Patient to arrive at 1230. MLG Performed By: #### C BC, BMP ####[place] [id number] WBC (Bld) [#/Vol] 8.3 10*3/uL Normal 3.8-11.6 [facility] Comment on above: Order Comment: Label s sent to surg prep @ 1120. Patient to arrive at 1230. MLG Performed By: #### C BC, BMP ####[address] Creatinine [Mass/volume] in Serum or PlasmaOrdered By: Will Tran on 02-04-2024 Creatinine [Mass/Vol] 2.29 mg/dL High 0.60-1.20 [facility] Comment on above: Order Comment: Label s sent to surg prep @ 1120. Patient to arrive at 1230. MLG Performed By: #### C BC, BMP ####[address] Creatinine [Mass/Vol] Creatinine [Mass/v olume] in Serum or Plasma High 0.60-1.20 [facility] Eosinophils Auto (Bld) [#/Vo l]Ordered By: Chuy Mojica on 02-04-2024 Eosinophils (Bld) [#/Vol] Automated eosinophil count 0.0-0.45 [facility] Eosinophils/100 WBC Auto (Bl d)Ordered By: Chuy Mojica on 02-04-2024 Eosinophils/100 WBC (Bld) Automated eosinophil % . [facility] Erythrocyte distribution wid th Auto (RBC) [Ratio]Ordered By: Chuy Mojica on 02-04-2024 Erythrocyte distribution width (RBC) [Ratio] Erythrocyte distribution width [Ratio] by Automated count High 11.9-15.3 [facility] Erythrocyte distribution wid th [Ratio] by Automated countOrdered By: Chuy Mojica on 02-04-2024 Erythrocyte distribution width (RBC) [Ratio] 20.9 % High 11.9-15.3 [facility] Comment on above: Performed By: #### C BC ####[place] [id number] [place] [address] [facility] Erythrocytes [#/volume] in B lood by Automated countOrdered By: Chuy Mojica on 02-04-2024 RBC (Bld) [#/Vol] 3.15 10*6/uL Low 3.60-5.00 [facility] Comment on above: Performed By: #### C BC ####[place] [id number] [place] [address] [facility] Glucose [Mass/volume] in Ser um or PlasmaOrdered By: Will Tran on 02-04-2024 Glucose [Mass/Vol] 69 mg/dL Low 70-100 [facility] Comment on above: ADA recommended refe rence rangeRandom Glucose Reference Range is dependent on time and content of last meal. Glucose of more than 200 mg/dL in a nonstressed, ambulatory subject supports the diagnosis of Diabetes Mellitus. Order Comment: Label s sent to surg prep @ 1120. Patient to arrive at 1230. MLG Result Comment: [place] om Glucose Reference Range is dependent on time and content of last meal. Glucose of more than 200 mg/dL in a nonstressed, ambulatory subject supports the diagnosis of Diabetes Mellitus. ADA recommended reference range Performed By: #### C BC, BMP ####[place] [id number] [place] [address] [facility] Glucose [Mass/Vol] Glucose [Mass/volume ] in Serum or Plasma Low 70-100 [facility] Comment on above: ADA recommended refe rence rangeRandom Glucose Reference Range is dependent on time and content of last meal. Glucose of more than 200 mg/dL in a nonstressed, ambulatory subject supports the diagnosis of Diabetes Mellitus. Hematocrit Auto (Bld) [Volum e fraction]Ordered By: Chuy Mojica on 02-04-2024 Hematocrit (Bld) [Volume fraction] Hematocrit [Volume Fraction] of Blood by Automated count Low 34.0-46.4 [facility] Hematocrit [Volume Fraction] of Blood by Automated countOrdered By: Chuy Mojica on 02-04-2024 Hematocrit (Bld) [Volume fraction] 29.6 % Low 34.0-46.4 [facility] Comment on above: Performed By: #### C BC ####[place] [id number] Hemoglobin [Mass/volume] in BloodOrdered By: Chuy Mojica on 02-04-2024 Hemoglobin (Bld) [Mass/Vol] 9.9 g/dL Low 11.8-15.4 [facility] Comment on above: Performed By: #### C BC ####[place] [id number] [place] [id number] [facility] Hemoglobin (Bld) [Mass/Vol] Hemoglobin [Mass/volume] in Blood Low 11.8-15.4 [facility] LeukoReduced RBCon LeukoReduced RBC READY Normal [facility] Leukocytes [#/volume] correc [place] for nucleated erythrocytes in Blood by Automated counOrdered By: Chuy Mojica on 02-04-2024 WBC corrected for nucl RBC Auto (Bld) [#/Vol] 8.5 10*3/uL 3.8-11.6 [facility] WBC corrected for nucl RBC Auto (Bld) [#/Vol] Leukocytes [#/volume] corrected for nucleated erythrocytes in Blood by Automated coun 3.8-11.6 [facility] Leukocytes [#/volume] in Blo od by Automated countOrdered By: Chuy Mojica on 02-04-2024 WBC (Bld) [#/Vol] 8.5 10*3/uL Normal 3.8-11.6 [facility] Comment on above: Performed By: #### C BC ####[place] [id number] [facility] Lymphocytes Auto (Bld) [#/Vo l]Ordered By: Chuy Mojica on 02-04-2024 Lymphocytes (Bld) [#/Vol] Lymphocytes [#/volume] in Blood by Automated count 1.00-4.8 [facility] Lymphocytes [#/volume] in Bl ood by Automated countOrdered By: Chuy Mojica on 02-04-2024 Lymphocytes (Bld) [#/Vol] 2.8 10*3/uL Normal 1.00-4.8 [facility] Comment on above: Performed By: #### C BC ####[facility] [id number] Lymphocytes/100 WBC Auto (Bl d)Ordered By: Chuy Mojica on 02-04-2024 Lymphocytes/100 WBC (Bld) Lymphocytes/100 leukocytes in Blood by Automated count . [facility] Lymphocytes/100 leukocytes i n Blood by Automated countOrdered By: Chuy Mojica on 02-04-2024 Lymphocytes/100 WBC (Bld) 33.3 % Normal . [facility] Comment on above: Performed By: #### C BC ####[facility] [id number] MCH Auto (RBC) [Entitic mass ]Ordered By: Chuy Mojica on 02-04-2024 MCH (RBC) [Entitic mass] MCH [Entitic mass] by Automated count 24.7-34.3 [facility] MCH [Entitic mass] by Automa [place] countOrdered By: Chuy Mojica on 02-04-2024 MCH (RBC) [Entitic mass] 31.6 pg Normal 24.7-34.3 [facility] Comment on above: Performed By: #### C BC ####[address] MCHC Auto (RBC) [Mass/Vol]Or dered By: Chuy Mojica on 02-04-2024 MCHC (RBC) [Mass/Vol] 33.5 g/dL 32.0-35.0 [facility] MCHC (RBC) [Mass/Vol] MCHC [Mass/volume] by Automated count 32.0-35.0 [facility] MCV Auto (RBC) [Entitic vol] Ordered By: Chuy Mojica on 02-04-2024 MCV (RBC) [Entitic vol] MCV [Entitic vol ume] by Automated count 80-100 [facility] MCV [Entitic volume] by Auto mated countOrdered By: Chuy Mojica on 09-11-2024 MCV (RBC) [Entitic vol] 94.2 fL Normal 80-[address] [facility] Comment on above: Performed By: #### C BC ####[facility] [id number] [place] [address] [facility] Monocytes Auto (Bld) [#/Vol] Ordered By: Chuy Mojica on 02-04-2024 Monocytes (Bld) [#/Vol] Automated blood monocyte count 0.0-0.8 [facility] Monocytes/100 WBC Auto (Bld) Ordered By: Chuy Mojica on 02-04-2024 Monocytes/100 WBC (Bld) Automated monocyte % . [facility] Neutrophils Auto (Bld) [#/Vo l]Ordered By: Chuy Mojica on 02-04-2024 Neutrophils (Bld) [#/Vol] Neutrophils [#/volume] in Blood by Automated count 1.8-7.7 [facility] Neutrophils [#/volume] in Bl ood by Automated countOrdered By: Chuy Mojica on 02-04-2024 Neutrophils (Bld) [#/Vol] 4.5 10*3/uL Normal 1.8-7.7 [facility] Comment on above: Performed By: #### C BC ####[facility] [id number] [place] [id number] [facility] Neutrophils/100 WBC Auto (Bl d)Ordered By: Chuy Mojica on 02-04-2024 Neutrophils/100 WBC (Bld) Automated neutrophil % . [facility] No Panel InformationOrdered By: Will Tran on 02-04-2024 Estimated GFR (CKD-EPI) 27.024 mL/Min [facility] Creatinine Clearance (Chem 28.20 [facility] Nucleated erythrocytes [Pres ence] in Blood by Automated countOrdered By: Chuy Mojica on 02-04-2024 Nucleated RBC Auto Ql (Bld) 0.1 /100{WBC} 0-0.5 [facility] Nucleated RBC Auto Ql (Bld) Nucleated erythrocytes [Presence] in Blood by Automated count 0-0.5 [facility] Platelet mean volume Auto (B ld) [Entitic vol]Ordered By: Chuy Mojica on 02-04-2024 Platelet mean volume (Bld) [Entitic vol] Platelet mean volume [Entitic volume] in Blood by Automated count 6.3-10.7 [facility] Platelet mean volume [Entiti c volume] in Blood by Automated countOrdered By: Chuy Mojica on 02-04-2024 Platelet mean volume (Bld) [Entitic vol] 7.6 fL Normal 6.3-10.7 [facility] Comment on above: Performed By: #### C BC ####[place] [id number] [facility] Platelets Auto (Bld) [#/Vol] Ordered By: Chuy Mojica on 02-04-2024 Platelets (Bld) [#/Vol] Platelets [#/vol ume] in Blood by Automated count 150-450 [facility] Platelets [#/volume] in Bloo d by Automated countOrdered By: Chuy Mojica on 02-04-2024 Platelets (Bld) [#/Vol] 277 10*3/uL Normal 150-450 [facility] Comment on above: Performed By: #### C BC ####[place] [id number] [facility] Potassium [Moles/volume] in Serum or PlasmaOrdered By: Will Tran on 02-04-2024 Potassium [Moles/Vol] 3.9 mmol/L Normal 3.5-5.1 [facility] Comment on above: Order Comment: Label s sent to surg prep @ 1120. Patient to arrive at 1230. MLG Performed By: #### C BC, BMP ####[place] [id number] [facility] Potassium [Moles/Vol] Potassium [Moles/v olume] in Serum or Plasma 3.5-5.1 [facility] RBC Auto (Bld) [#/Vol]Ordere d By: Chuy Mojica on 02-04-2024 RBC (Bld) [#/Vol] Erythrocytes [#/volu me] in Blood by Automated count Low 3.60-5.00 [facility] Serum or plasma anion gap de terminationOrdered By: Will Tran on 02-04-2024 Anion gap [Moles/Vol] 10.1 mmol/L Normal 6.0-15.0 [facility] Comment on above: Order Comment: Label s sent to surg prep @ 1120. Patient to arrive at 1230. MLG Performed By: #### C EFRAÍN, BMP ####[place] [id number] [place] [address] [facility] Anion gap [Moles/Vol] Serum or plasma an ion gap determination 6.0-15.0 [facility] Sodium [Moles/volume] in Ser um or PlasmaOrdered By: Will Tran on 02-04-2024 Sodium [Moles/Vol] 133 mmol/L Low 136-145 [facility] Comment on above: Order Comment: Label s sent to surg prep @ 1120. Patient to arrive at 1230. MLG Performed By: #### C EFRAÍN, BMP ####[address] [address] [facility] Sodium [Moles/Vol] Sodium [Moles/volume ] in Serum or Plasma Low 136-145 [facility] Type and Screenon 02-04-2024 ABO and Rh group Nom (Bld) Blood group O Rh(D) positive Normal [facility] Comment on above: Order Comment: Label s sent to surg prep @ 1120. Patient to arrive at 1230. MLG Comment on hold for OR 02/03 Transfuse now? N Result Comment: PERF ORMED BY:[place] [address] [place] [phone] MEDICAL DIRECTORESTRADA GUZMAN M.D. Urea nitrogen [Mass/volume] in Serum or PlasmaOrdered By: Will Tran on 02-04-2024 Urea nitrogen [Mass/Vol] 12 mg/dL Normal 12-17 [facility] Comment on above: Order Comment: Label s sent to surg prep @ 1120. Patient to arrive at 1230. MLG Performed By: #### C EFRAÍN, BMP ####[address] [address] [facility] Urea nitrogen [Mass/Vol] Urea nitrogen [Mass/volume] in Serum or Plasma 12-17 [facility] WBC Auto (Bld) [#/Vol]Ordere d By: Chuy Mojica on 02-04-2024 WBC (Bld) [#/Vol] Leukocytes [#/volume ] in Blood by Automated count 3.8-11.6 [facility] XR humerus RT*on 02-04-2024 XR humerus RT* Normal [facility] XR shoulder LT min 2V*on XR shoulder LT min 2V* Normal Th e [facility] XR shoulder RT min 2V*on XR shoulder RT min 2V* Normal Th e [facility] Activated partial thrombopla stin time (aPTT) in platelet poor plasma by coagulation aOrdered By: Sonu Gallagher on 01-21-2024 aPTT Coag (PPP) [Time] 32.2 s 25.1-36.5 [facility] Comment on above: A hematocrit value g reater than 55% may lead to inaccurate results in coagulation testing. Patients having hematocrit values >55% require a special collection tube for coagulation studies. Please contact the laboratory at [phone] for redraw instructions. Anisocytosis LM Ql (Bld)Orde red By: Sonu Gallagher on 01-21-2024 Anisocytosis Ql (Bld) Anisocytosis [Pres ence] in Blood by Light microscopy [facility] Anisocytosis [Presence] in B lood by Light microscopyOrdered By: Sonu Gallagher on 01-21-2024 Anisocytosis Ql (Bld) Marked Normal [facility] Comment on above: Performed By: #### P TT, SCAN CBC, PT, BMP ####[facility] [id number] Automated basophil %Ordered By: Sonu Gallagher on 01-21-2024 Basophils/100 WBC (Bld) 1.8 % Normal . [facility] Comment on above: Performed By: #### P TT, SCAN CBC, PT, BMP ####[facility] [id number] [place] [address] [facility] Automated basophil countOrde red By: Sonu Gallagher on 01-21-2024 Basophils (Bld) [#/Vol] 0.1 10*3/uL Normal 0.0-0.2 [facility] Comment on above: Performed By: #### P TT, SCAN CBC, PT, BMP ####[address] Automated blood monocyte cou ntOrdered By: Sonu Gallagher on 01-21-2024 Monocytes (Bld) [#/Vol] 1.1 10*3/uL High 0.0-0.8 [facility] Comment on above: Performed By: #### P TT, SCAN CBC, PT, BMP ####[address] Automated eosinophil %Ordere d By: Sonu Gallagher on 01-21-2024 Eosinophils/100 WBC (Bld) 3.3 % Normal . [facility] Comment on above: Performed By: #### P TT, SCAN CBC, PT, BMP ####[address] Automated eosinophil countOr dered By: Sonu Gallagher on 01-21-2024 Eosinophils (Bld) [#/Vol] 0.2 10*3/uL Normal 0.0-0.45 [facility] Comment on above: Performed By: #### P TT, SCAN CBC, PT, BMP ####[address] Automated monocyte %Ordered By: Sonu Gallagher on 01-21-2024 Monocytes/100 WBC (Bld) 14.3 % Normal . [facility] Comment on above: Performed By: #### P TT, SCAN CBC, PT, BMP ####[place] [id number] [facility] Automated neutrophil %Ordere d By: Sonu Gallagher on 01-21-2024 Neutrophils/100 WBC (Bld) 39.9 % Normal . [facility] Comment on above: Performed By: #### P TT, SCAN CBC, PT, BMP ####[place] [id number] [facility] Basic Metabolic Panelon 12-25 Creatinine Clr Calc Pharmacy 21.60 Normal [facility] Comment on above: Result Comment: PERF ORMED BY:[address] [place] [phone] MEDICAL DIRECTORESTRADA GUZMAN M.D. Performed By: #### P TT, SCAN CBC, PT, BMP ####[address] [address] [facility] GFR/1.73 sq M.predicted MDRD (S/P/Bld) [Vol rate/Area] 19.622 mL/min/{1.73_m2} Normal [facility] Comment on above: Performed By: #### P TT, SCAN CBC, PT, BMP ####[place] [id number] [facility] Basophils Auto (Bld) [#/Vol] Ordered By: Sonu Gallagher on 01-21-2024 Basophils (Bld) [#/Vol] Automated basophil count 0.0-0.2 [facility] Basophils/100 WBC Auto (Bld) Ordered By: Sonu Gallagher on 01-21-2024 Basophils/100 WBC (Bld) Automated basophil % . [facility] Calcium [Mass/volume] in Ser um or PlasmaOrdered By: Sonu Gallagher on 01-21-2024 Calcium [Mass/Vol] 8.7 mg/dL Normal 8.6-10.3 [facility] Comment on above: Performed By: #### P TT, SCAN CBC, PT, BMP ####[place] [id number] [facility] Calcium [Mass/Vol] Calcium [Mass/volume ] in Serum or Plasma 8.6-10.3 [facility] Carbon dioxide, total [Moles /volume] in Serum or PlasmaOrdered By: Sonu Gallagher on 01-21-2024 CO2 [Moles/Vol] 27.1 mmol/L Normal 21.0-31.0 [facility] Comment on above: Performed By: #### P TT, SCAN CBC, PT, BMP ####[place] [id number] [facility] CO2 [Moles/Vol] Carbon dioxide, tota l [Moles/volume] in Serum or Plasma 21.0-31.0 [facility] Chloride [Moles/volume] in S jie or PlasmaOrdered By: Sonu Gallagher on 01-21-2024 Chloride [Moles/Vol] 101 mmol/L Normal 98-107 [facility] Comment on above: Performed By: #### P TT, SCAN CBC, PT, BMP ####[place] [id number] Chloride [Moles/Vol] Chloride [Moles/vol ume] in Serum or Plasma 98-107 [facility] Creatinine [Mass/volume] in Serum or PlasmaOrdered By: Sonu Gallagher on 01-21-2024 Creatinine [Mass/Vol] 2.99 mg/dL High 0.60-1.20 [facility] Comment on above: Performed By: #### P TT, SCAN CBC, PT, BMP ####[address] Creatinine [Mass/Vol] Creatinine [Mass/v olume] in Serum or Plasma High 0.60-1.20 [facility] Eosinophils Auto (Bld) [#/Vo l]Ordered By: Sonu Gallagher on 01-21-2024 Eosinophils (Bld) [#/Vol] Automated eosinophil count 0.0-0.45 [facility] Eosinophils/100 WBC Auto (Bl d)Ordered By: Sonu Gallagher on 01-21-2024 Eosinophils/100 WBC (Bld) Automated eosinophil % . [facility] Erythrocyte distribution wid th Auto (RBC) [Ratio]Ordered By: Sonu Gallagher on 01-21-2024 Erythrocyte distribution width (RBC) [Ratio] Erythrocyte distribution width [Ratio] by Automated count High 11.9-15.3 [facility] Erythrocyte distribution wid th [Ratio] by Automated countOrdered By: Sonu Gallagher on 01-21-2024 Erythrocyte distribution width (RBC) [Ratio] 20.3 % High 11.9-15.3 [facility] [facility] Comment on above: Performed By: #### P TT, SCAN CBC, PT, BMP ####[address] Erythrocyte morphology findi ng [Identifier] in BloodOrdered By: Sonu Gallagher on 01-21-2024 RBC morphology finding Nom (Bld) RBC morphology [facility] Erythrocytes [#/volume] in B lood by Automated countOrdered By: Sonu Gallagher on 01-21-2024 RBC (Bld) [#/Vol] 3.34 10*6/uL Low 3.60-5.00 [facility] Comment on above: Performed By: #### P TT, SCAN CBC, PT, BMP ####[facility] [address] [place] [id number] [facility] Glucose [Mass/volume] in Ser um or PlasmaOrdered By: Sonu Gallagher on 01-21-2024 Glucose [Mass/Vol] 83 mg/dL Normal 70-100 [facility] Comment on above: ADA recommended refe rence rangeRandom Glucose Reference Range is dependent on time and content of last meal. Glucose of more than 200 mg/dL in a nonstressed, ambulatory subject supports the diagnosis of Diabetes Mellitus. Result Comment: [place] Glucose Reference Range is dependent on time and content of last meal. Glucose of more than 200 mg/dL in a nonstressed, ambulatory subject supports the diagnosis of Diabetes Mellitus. ADA recommended reference range Performed By: #### P TT, SCAN CBC, PT, BMP ####[facility] [address] [place] [address] [facility] Glucose [Mass/Vol] Glucose [Mass/volume ] in Serum or Plasma 70-100 [facility] Comment on above: ADA recommended refe rence rangeRandom Glucose Reference Range is dependent on time and content of last meal. Glucose of more than 200 mg/dL in a nonstressed, ambulatory subject supports the diagnosis of Diabetes Mellitus. Hematocrit Auto (Bld) [Volum e fraction]Ordered By: Duncan Hutchinson on 01-21-2024 Hematocrit (Bld) [Volume fraction] Hematocrit [Volume Fraction] of Blood by Automated count Low 34.0-46.4 [facility] Hematocrit [Volume Fraction] of Blood by Automated countOrdered By: Duncan Hutchinson on 01-21-2024 Hematocrit (Bld) [Volume fraction] 32.1 % Low 34.0-46.4 [facility] Comment on above: Result Comment: PERF ORMED BY:[id number] [place] [place], [place] [phone] MEDICAL DIRECTORESTRADA GUZMAN M.D. Performed By: #### H H ####[facility] [address] [place] [address] [facility] Hemoglobin [Mass/volume] in BloodOrdered By: Duncan Hutchinson on 01-21-2024 Hemoglobin (Bld) [Mass/Vol] 10.1 g/dL Low 11.8-15.4 [facility] Comment on above: Performed By: #### H H ####[address] [place] [address] [facility] Hemoglobin (Bld) [Mass/Vol] Hemoglobin [Mass/volume] in Blood Low 11.8-15.4 [facility] Hypochromia LM Ql (Bld)Order ed By: Sonu Gallagher on 01-21-2024 Hypochromia Ql (Bld) Moderate [facility] Hypochromia Ql (Bld) Hypochromia [Presen ce] in Blood by Light microscopy [facility] INR in Platelet poor plasma by Coagulation assayOrdered By: Sonu Gallagher on 01-21-2024 INR Coag (PPP) [Relative time] 1.1 {INR} Normal [facility] Comment on above: INR Therapeutic Rang e A) Pre- and Peroperative OAT started two weeks before surgery. NOT HIP SURGERY: 1.5 - 2.5 HIP SURGERY: 2 - 3B) Primary and secondary prevention of venous THROMBOSIS: 2 - 3C) Active venous thrombosis, pulmonary embolismand prevention of recurrent venous thrombosis: 2 - 3D) Prevention of arterial thromboembolismincluding patients with mechanical heart valves: 3 - 4.5 Result Comment: INR Therapeutic Range A) Pre- and Peroperative OAT started two weeks before surgery. NOT HIP SURGERY: 1.5 - 2.5 HIP SURGERY: 2 - 3 B) Primary and secondary prevention of venous THROMBOSIS: 2 - 3 C) Active venous thrombosis, pulmonary embolism and prevention of recurrent venous thrombosis: 2 - 3 D) Prevention of arterial thromboembolism including patients with mechanical heart valves: 3 - 4.5 Performed By: #### P TT, SCAN CBC, PT, BMP ####[facility] [address] [place] [id number] [facility] INR Coag (PPP) [Relative time] INR in Platelet poor plasma by Coagulation assay [facility] Comment on above: INR Therapeutic Rang e A) Pre- and Peroperative OAT started two weeks before surgery. NOT HIP SURGERY: 1.5 - 2.5 HIP SURGERY: 2 - 3B) Primary and secondary prevention of venous THROMBOSIS: 2 - 3C) Active venous thrombosis, pulmonary embolismand prevention of recurrent venous thrombosis: 2 - 3D) Prevention of arterial thromboembolismincluding patients with mechanical heart valves: 3 - 4.5 [place] 01-21-2024 L Normal [facility] Physician [facility] LeukoReduced RBCon LeukoReduced RBC READY Normal [facility] Physician [facility] Leukocytes [#/volume] correc [place] for nucleated erythrocytes in Blood by Automated counOrdered By: Sonu Gallagher on 01-21-2024 WBC corrected for nucl RBC Auto (Bld) [#/Vol] 7.4 10*3/uL 3.8-11.6 [facility] WBC corrected for nucl RBC Auto (Bld) [#/Vol] Leukocytes [#/volume] corrected for nucleated erythrocytes in Blood by Automated coun 3.8-11.6 [facility] Leukocytes [#/volume] in Blo od by Automated countOrdered By: Sonu Gallagher on 01-21-2024 WBC (Bld) [#/Vol] 7.4 10*3/uL Normal 3.8-11.6 [facility] Comment on above: Performed By: #### P TT, SCAN CBC, PT, BMP ####[facility] [address] [place] [id number] [facility] Lymphocytes Auto (Bld) [#/Vo l]Ordered By: Sonu Gallagher on 01-21-2024 Lymphocytes (Bld) [#/Vol] Lymphocytes [#/volume] in Blood by Automated count 1.00-4.8 [facility] Lymphocytes [#/volume] in Bl ood by Automated countOrdered By: Sonu Gallagher on 01-21-2024 Lymphocytes (Bld) [#/Vol] 3.0 10*3/uL Normal 1.00-4.8 [facility] Comment on above: Performed By: #### P TT, SCAN CBC, PT, BMP ####[facility] [id number] Lymphocytes/100 WBC Auto (Bl d)Ordered By: Sonu Gallagher on 01-21-2024 Lymphocytes/100 WBC (Bld) Lymphocytes/100 leukocytes in Blood by Automated count . [facility] Lymphocytes/100 leukocytes i n Blood by Automated countOrdered By: Sonu Gallagher on 01-21-2024 Lymphocytes/100 WBC (Bld) 40.7 % Normal . [facility] Comment on above: Performed By: #### P TT, SCAN CBC, PT, BMP ####[address] MCH Auto (RBC) [Entitic mass ]Ordered By: Sonu Gallagher on 01-21-2024 MCH (RBC) [Entitic mass] MCH [Entitic mass] by Automated count 24.7-34.3 [facility] MCH [Entitic mass] by Automa saskia countOrdered By: Sonu Gallagher on 01-21-2024 MCH (RBC) [Entitic mass] 29.6 pg Normal 24.7-34.3 [facility] Comment on above: Performed By: #### P TT, SCAN CBC, PT, BMP ####[facility] [id number] MCHC Auto (RBC) [Mass/Vol]Or dered By: Sonu Gallagher on 01-21-2024 MCHC (RBC) [Mass/Vol] 32.3 g/dL 32.0-35.0 [facility] MCHC (RBC) [Mass/Vol] MCHC [Mass/volume] by Automated count 32.0-35.0 [facility] MCV Auto (RBC) [Entitic vol] Ordered By: Sonu Gallagher on 01-21-2024 MCV (RBC) [Entitic vol] MCV [Entitic vol ume] by Automated count 80-100 [facility] MCV [Entitic volume] by Auto mated countOrdered By: Sonu Gallagher on 01-21-2024 MCV (RBC) [Entitic vol] 91.7 fL Normal 80-[address] [facility] Comment on above: Performed By: #### P TT, SCAN CBC, PT, BMP ####[facility] [id number] [place] [id number] [facility] Macrocytes LM Ql (Bld)Ordere d By: Sonu Gallagher on 01-21-2024 Macrocytes Ql (Bld) Slight [facility] Macrocytes Ql (Bld) Macrocytes [Presence ] in Blood by Light microscopy [facility] Monocytes Auto (Bld) [#/Vol] Ordered By: Sonu Gallagher on 01-21-2024 Monocytes (Bld) [#/Vol] Automated blood monocyte count High 0.0-0.8 [facility] Monocytes/100 WBC Auto (Bld) Ordered By: Sonu Gallagher on 01-21-2024 Monocytes/100 WBC (Bld) Automated monocyte % . [facility] Neutrophils Auto (Bld) [#/Vo l]Ordered By: Sonu Gallagher on 01-21-2024 Neutrophils (Bld) [#/Vol] Neutrophils [#/volume] in Blood by Automated count 1.8-7.7 [facility] Neutrophils [#/volume] in Bl ood by Automated countOrdered By: Sonu Gallagher on 01-21-2024 Neutrophils (Bld) [#/Vol] 2.9 10*3/uL Normal 1.8-7.7 [facility] Comment on above: Performed By: #### P TT, SCAN CBC, PT, BMP ####[facility] [id number] [place] [id number] [facility] Neutrophils/100 WBC Auto (Bl d)Ordered By: Sonu Gallagher on 01-21-2024 Neutrophils/100 WBC (Bld) Automated neutrophil % . [facility] No Panel InformationOrdered By: Sonu Gallagher on 01-21-2024 Estimated GFR (CKD-EPI) 19.622 mL/Min [facility] Creatinine Clearance (Chem 21.60 [facility] Nucleated erythrocytes [Pres ence] in Blood by Automated countOrdered By: Sonu Gallagher on 01-21-2024 Nucleated RBC Auto Ql (Bld) 0.1 /100{WBC} 0-0.5 [facility] Nucleated RBC Auto Ql (Bld) Nucleated erythrocytes [Presence] in Blood by Automated count 0-0.5 [facility] Partial Thromboplastin Timeo n 01-21-2024 aPTT Coag (Bld) [Time] 32.2 s Normal 25.1-36.5 Th e [facility] Comment on above: Result Comment: A he matocrit value greater than 55% may lead to inaccurate results in coagulation testing. Patients having hematocrit values >55% require a special collection tube for coagulation studies. Please contact the laboratory at [phone] for redraw instructions.PERFORMED BY:[id number] [place] [address] [place], [place] [phone] MEDICAL DIRECTORESTRADA GUZMAN M.D. Performed By: #### P TT, SCAN CBC, PT, BMP ####[facility] [address] [place] [address] [facility] Platelet adequacy [Presence] in Blood by Light microscopyOrdered By: Sonu Gallagher on 01-21-2024 Platelets LM Ql (Bld) Normal Normal [facility] Platelets LM Ql (Bld) Platelet adequacy [Presence] in Blood by Light microscopy Normal [facility] Platelet mean volume Auto (B ld) [Entitic vol]Ordered By: Sonu Gallagher on 01-21-2024 Platelet mean volume (Bld) [Entitic vol] Platelet mean volume [Entitic volume] in Blood by Automated count 6.3-10.7 [facility] Platelet mean volume [Entiti c volume] in Blood by Automated countOrdered By: Sonu Gallagher on 01-21-2024 Platelet mean volume (Bld) [Entitic vol] 7.6 fL Normal 6.3-10.7 [facility] Comment on above: Performed By: #### P TT, SCAN CBC, PT, BMP ####[facility] [address] [place] [address] [facility] Platelet morphology finding [Identifier] in BloodOrdered By: Sonu Gallagher on 01-21-2024 Platelet morphology finding Nom (Bld) Normal Normal [facility] Platelet morphology finding Nom (Bld) Platelet morphology finding [Identifier] in Blood Normal [facility] Platelets Auto (Bld) [#/Vol] Ordered By: Sonu Gallagher on 01-21-2024 Platelets (Bld) [#/Vol] Platelets [#/vol ume] in Blood by Automated count 150-450 [facility] Platelets [#/volume] in Bloo d by Automated countOrdered By: Sonu Gallagher on 01-21-2024 Platelets (Bld) [#/Vol] 213 10*3/uL Normal 150-450 [facility] Comment on above: Performed By: #### P TT, SCAN CBC, PT, BMP ####[facility] [id number] [place] [id number] [facility] Potassium [Moles/volume] in Serum or PlasmaOrdered By: Sonu Gallagher on 01-21-2024 Potassium [Moles/Vol] 4.0 mmol/L Normal 3.5-5.1 [facility] Comment on above: Performed By: #### P TT, SCAN CBC, PT, BMP ####[address] [address] [facility] Potassium [Moles/Vol] Potassium [Moles/v olume] in Serum or Plasma 3.5-5.1 [facility] Prothrombin time (PT)Ordered By: Sonu Gallagher on 01-21-2024 PT Coag (PPP) [Time] 12.3 s Normal 9.0-12.9 [facility] Comment on above: A hematocrit value g reater than 55% may lead to inaccurate results in coagulation testing. Patients having hematocrit values >55% require a special collection tube for coagulation studies. Please contact the laboratory at [phone] for redraw instructions. Result Comment: A he matocrit value greater than 55% may lead to inaccurate results in coagulation testing. Patients having hematocrit values >55% require a special collection tube for coagulation studies. Please contact the laboratory at [phone] for redraw instructions. Performed By: #### P TT, SCAN CBC, PT, BMP ####[facility] [id number] [place] [id number] [facility] PT Coag (PPP) [Time] Prothrombin time (PT) 9.0- 12.9 [facility] Comment on above: A hematocrit value g reater than 55% may lead to inaccurate results in coagulation testing. Patients having hematocrit values >55% require a special collection tube for coagulation studies. Please contact the laboratory at [phone] for redraw instructions. RBC Auto (Bld) [#/Vol]Ordere d By: Sonu Gallagher on 01-21-2024 RBC (Bld) [#/Vol] Erythrocytes [#/volu me] in Blood by Automated count Low 3.60-5.00 [facility] RBC morphologyOrdered By: Jp Gallagher on 01-21-2024 RBC morphology finding Nom (Bld) N/A [facility] Scan and CBCon 01-21-2024 Hematocrit (Bld) [Volume fraction] 30.6 % Low 34.0-46.4 [facility] Comment on above: Performed By: #### P TT, SCAN CBC, PT, BMP ####[address] Hemoglobin (Bld) [Mass/Vol] 9.9 g/dL Low 11.8-15.4 [facility] Comment on above: Performed By: #### P TT, SCAN CBC, PT, BMP ####[address] Hypochromasia Moderate Normal [facility] Comment on above: Performed By: #### P TT, SCAN CBC, PT, BMP ####[address] Macrocytosis Slight Normal [facility] Comment on above: Performed By: #### P TT, SCAN CBC, PT, BMP ####[address] Mean Corpuscular HGB Conc 32.3 g/dL Normal 32.0-35.0 [facility] Comment on above: Performed By: #### P TT, SCAN CBC, PT, BMP ####[address] NRBC% 0.1 /100{WBC} Normal 0-0.5 [facility] Comment on above: Performed By: #### P TT, SCAN CBC, PT, BMP ####[address] [place] [address] [facility] Platelet Estimate Normal Normal Normal [facility] Comment on above: Performed By: #### P TT, SCAN CBC, PT, BMP ####[place] [id number] [facility] Platelet Morphology Normal Normal Normal [facility] Comment on above: Result Comment: PERF ORMED BY:[address] [address] [place], [place] [phone] MEDICAL DIRECTORESTRADA GUZMAN M.D. Performed By: #### P TT, SCAN CBC, PT, BMP ####[place] [id number] [facility] Serum or plasma anion gap de terminationOrdered By: Sonu Gallagher on 01-21-2024 Anion gap [Moles/Vol] 10.9 mmol/L Normal 6.0-15.0 [facility] Comment on above: Performed By: #### P TT, SCAN CBC, PT, BMP ####[place] [id number] [facility] Anion gap [Moles/Vol] Serum or plasma an ion gap determination 6.0-15.0 [facility] Sodium [Moles/volume] in Ser um or PlasmaOrdered By: Sonu Gallagher on 01-21-2024 Sodium [Moles/Vol] 135 mmol/L Low 136-145 [facility] Comment on above: Performed By: #### P TT, SCAN CBC, PT, BMP ####[place] [id number] [facility] Sodium [Moles/Vol] Sodium [Moles/volume ] in Serum or Plasma Low 136-145 [facility] Type and Screenon 01-21-2024 ABO and Rh group Nom (Bld) Blood group O Rh(D) positive Normal [facility] Comment on above: Order Comment: Trans fuse now? N Result Comment: PERF ORMED BY:[address] [address] [place], [place] [phone] MEDICAL DIRECTORESTRADA GUZMAN M.D. Urea nitrogen [Mass/volume] in Serum or PlasmaOrdered By: Sonu Gallagher on 01-21-2024 Urea nitrogen [Mass/Vol] 15 mg/dL Normal 12-17 [facility] Comment on above: Performed By: #### P TT, SCAN CBC, PT, BMP ####[facility] [address] [place] [address] [facility] Urea nitrogen [Mass/Vol] Urea nitrogen [Mass/volume] in Serum or Plasma 12-17 [facility] WBC Auto (Bld) [#/Vol]Ordere d By: Sonu Gallagher on 01-21-2024 WBC (Bld) [#/Vol] Leukocytes [#/volume ] in Blood by Automated count 3.8-11.6 [facility] XR shoulder LT min 2V*on XR shoulder LT min 2V* Normal Th e [facility] XR shoulder RT 1Von 01-21-20 XR shoulder RT 1V Normal [facility] aPTT in Platelet poor plasma by Coagulation assayOrdered By: Sonu Gallagher on 01-21-2024 aPTT Coag (PPP) [Time] Activated partial thromboplastin time (aPTT) in platelet poor plasma by coagulation a 25.1-36.5 [facility] Comment on above: A hematocrit value g reater than 55% may lead to inaccurate results in coagulation testing. Patients having hematocrit values >55% require a special collection tube for coagulation studies. Please contact the laboratory at [phone] for redraw instructions. Alanine aminotransferase [En zymatic activity/volume] in Serum or PlasmaOrdered By: Chuy Mojica on 01-06-2024 ALT [Catalytic activity/Vol] 19 U/L Normal [facility] Comment on above: Performed By: #### C BC, CMP wRFX A1C ####[facility] [address] [place] [address] [place] Albumin [Mass/volume] in Ser um or Plasma by Bromocresol green (BCG) dye binding methoOrdered By: Chuy Mojica on 01-06-2024 Albumin BCG dye [Mass/Vol] 3.0 g/dL Low 3.5-5.7 [facility] Alkaline phosphatase [Enzyma tic activity/volume] in Serum or PlasmaOrdered By: Chuy Mojica on 01-06-2024 ALP [Catalytic activity/Vol] 311 U/L High 34-104 [facility] Comment on above: Result Comment: PERF ORMED BY:[address] [address] [place], [place] [phone] MEDICAL DIRECTORESTRADA GUZMAN M.D. Performed By: #### C BC, CMP wRFX A1C ####[place] [id number] [facility] Aspartate aminotransferase [ Enzymatic activity/volume] in Serum or PlasmaOrdered By: Chuy Mojica on 01-06-2024 AST [Catalytic activity/Vol] 36 U/L Normal 13-39 [facility] Comment on above: Performed By: #### C BC, CMP wRFX A1C ####[address] Automated basophil %Ordered By: Chuy Mojica on 01-06-2024 Basophils/100 WBC (Bld) 1.9 % Normal . [facility] Comment on above: Performed By: #### C BC, CMP wRFX A1C ####[address] Automated basophil countOrde red By: Chuy Mojica on 01-06-2024 Basophils (Bld) [#/Vol] 0.2 10*3/uL Normal 0.0-0.2 [facility] Comment on above: Result Comment: PERF ORMED BY:[address] [address] [place], [place] [phone] MEDICAL FCO GUZMAN M.D. Performed By: #### C BC, CMP wRFX A1C ####[place] [id number] [facility] Automated blood monocyte cou ntOrdered By: Chuy Mojica on 01-06-2024 Monocytes (Bld) [#/Vol] 1.4 10*3/uL High 0.0-0.8 [facility] Comment on above: Performed By: #### C BC, CMP wRFX A1C ####[facility] [place] [id number] [facility] Automated eosinophil %Ordere d By: Chuy Mojica on 01-06-2024 Eosinophils/100 WBC (Bld) 1.7 % Normal . [facility] Comment on above: Performed By: #### C BC, CMP wRFX A1C ####[address] [place] [id number] [facility] Automated eosinophil countOr dered By: Chuy Mojica on 01-06-2024 Eosinophils (Bld) [#/Vol] 0.2 10*3/uL Normal 0.0-0.45 [facility] Comment on above: Performed By: #### C BC, CMP wRFX A1C ####[address] Automated monocyte %Ordered By: Chuy Mojica on 01-06-2024 Monocytes/100 WBC (Bld) 14.8 % Normal . [facility] Comment on above: Performed By: #### C BC, CMP wRFX A1C ####[address] Automated neutrophil %Ordere d By: Chuy Mojica on 01-06-2024 Neutrophils/100 WBC (Bld) 37.0 % Normal . [facility] Comment on above: Performed By: #### C BC, CMP wRFX A1C ####[address] Bilirubin.total [Mass/volume ] in Serum or PlasmaOrdered By: Chuy Mojica on 01-06-2024 Bilirubin [Mass/Vol] 1.0 mg/dL Normal 0.3-1.0 [facility] Comment on above: Performed By: #### C BC, CMP wRFX A1C ####[place] [id number] [facility] CMP with reflex to A1Con Albumin [Mass/Vol] 3.0 g/dL Low 3.5-5.7 [facility] Comment on above: Performed By: #### C BC, CMP wRFX A1C ####[id number] [place] [id number] [facility] GFR/1.73 sq M.predicted MDRD (S/P/Bld) [Vol rate/Area] 15.861 mL/min/{1.73_m2} Normal [facility] Comment on above: Performed By: #### C BC, CMP wRFX A1C ####[place] [id number] [place] Calcium [Mass/volume] in Ser um or PlasmaOrdered By: Chuy Mojica on 01-06-2024 Calcium [Mass/Vol] 8.7 mg/dL Normal 8.6-10.3 [facility] Comment on above: Performed By: #### C BC, CMP wRFX A1C ####[address] Carbon dioxide, total [Moles /volume] in Serum or PlasmaOrdered By: Chuy Mojica on 01-06-2024 CO2 [Moles/Vol] 29.2 mmol/L Normal 21.0-31.0 [facility] Comment on above: Performed By: #### C BC, CMP wRFX A1C ####[place] [id number] [place] Chloride [Moles/volume] in S jie or PlasmaOrdered By: Chuy Mojica on 01-06-2024 Chloride [Moles/Vol] 98 mmol/L Normal 98-107 [facility] Comment on above: Performed By: #### C BC, CMP wRFX A1C ####[place] [id number] [facility] Complete Blood Count Auto Di ffon 01-06-2024 Mean Corpuscular HGB Conc 32.2 g/dL Normal 32.0-35.0 [facility] Comment on above: Performed By: #### C BC, CMP wRFX A1C ####[place] [id number] [facility] NRBC% 0.1 /100{WBC} Normal 0-0.5 [facility] Comment on above: Performed By: #### C BC, CMP wRFX A1C ####[address] [place] [address] [facility] Creatinine [Mass/volume] in Serum or PlasmaOrdered By: Chuy Mojica on 01-06-2024 Creatinine [Mass/Vol] 3.57 mg/dL High 0.60-1.20 [facility] Comment on above: Performed By: #### C BC, CMP wRFX A1C ####[address] [address] [facility] Erythrocyte distribution wid th [Ratio] by Automated countOrdered By: Chuy Mojica on 01-06-2024 Erythrocyte distribution width (RBC) [Ratio] 19.3 % High 11.9-15.3 [facility] Comment on above: Performed By: #### C BC, CMP wRFX A1C ####[address] [address] [facility] Erythrocytes [#/volume] in B lood by Automated countOrdered By: Chuy Mojica on 01-06-2024 RBC (Bld) [#/Vol] 3.74 10*6/uL Normal 3.60-5.00 [facility] Comment on above: Performed By: #### C BC, CMP wRFX A1C ####[place] [id number] [facility] Glucose [Mass/volume] in Ser um or PlasmaOrdered By: Chuy Mojica on 01-06-2024 Glucose [Mass/Vol] 78 mg/dL Normal 70-100 [facility] Comment on above: Performed By: #### C BC, CMP wRFX A1C ####[address] [address] [facility] Hematocrit [Volume Fraction] of Blood by Automated countOrdered By: Chuy Mojica on 01-06-2024 Hematocrit (Bld) [Volume fraction] 33.6 % Low 34.0-46.4 [facility] Comment on above: Performed By: #### C BC, CMP wRFX A1C ####[address] [address] [place] Hemoglobin [Mass/volume] in BloodOrdered By: Chuy Mojica on 01-06-2024 Hemoglobin (Bld) [Mass/Vol] 10.8 g/dL Low 11.8-15.4 [facility] Comment on above: Performed By: #### C BC, CMP wRFX A1C ####[address] [address] [facility] Leukocytes [#/volume] correc [place] for nucleated erythrocytes in Blood by Automated counOrdered By: Chuy Mojica on 01-06-2024 WBC corrected for nucl RBC Auto (Bld) [#/Vol] 9.7 10*3/uL 3.8-11.6 [facility] Leukocytes [#/volume] in Blo od by Automated countOrdered By: Chuy Mojica on 01-06-2024 WBC (Bld) [#/Vol] 9.7 10*3/uL Normal 3.8-11.6 [facility] Comment on above: Performed By: #### C BC, CMP wRFX A1C ####[place] [id number] [facility] Lymphocytes [#/volume] in Bl ood by Automated countOrdered By: Chuy Mojica on 01-06-2024 Lymphocytes (Bld) [#/Vol] 4.3 10*3/uL Normal 1.00-4.8 [facility] Comment on above: Performed By: #### C BC, CMP wRFX A1C ####[place] [id number] [place] Lymphocytes/100 leukocytes i n Blood by Automated countOrdered By: Chuy Mojica on 01-06-2024 Lymphocytes/100 WBC (Bld) 44.6 % Normal . [facility] Comment on above: Performed By: #### C BC, CMP wRFX A1C ####[place] [id number] [place] MCH [Entitic mass] by Automa saskia countOrdered By: Chuy Mojica on 01-06-2024 MCH (RBC) [Entitic mass] 29.0 pg Normal 24.7-34.3 [facility] Comment on above: Performed By: #### C BC, CMP wRFX A1C ####[facility] [id number] MCHC Auto (RBC) [Mass/Vol]Or dered By: Chuy Mojica on 01-06-2024 MCHC (RBC) [Mass/Vol] 32.2 g/dL 32.0-35.0 [facility] MCV [Entitic volume] by Auto mated countOrdered By: Chuy Mojica on 01-06-2024 MCV (RBC) [Entitic vol] 89.9 fL Normal 80-[address] [facility] Comment on above: Performed By: #### C BC, CMP wRFX A1C ####[facility] [id number] [address] Neutrophils [#/volume] in Bl ood by Automated countOrdered By: Chuy Mojica on 01-06-2024 Neutrophils (Bld) [#/Vol] 3.6 10*3/uL Normal 1.8-7.7 [facility] Comment on above: Performed By: #### C BC, CMP wRFX A1C ####[facility] [id number] [address] No Panel InformationOrdered By: Chuy Mojica on 01-06-2024 Estimated GFR (CKD-EPI) 15.861 mL/Min [facility] Creatinine Clearance (Chem N/A [facility] Nucleated erythrocytes [Pres ence] in Blood by Automated countOrdered By: Chuy Mojica on 01-06-2024 Nucleated RBC Auto Ql (Bld) 0.1 /100{WBC} 0-0.5 [facility] Platelet mean volume [Entiti c volume] in Blood by Automated countOrdered By: Chuy Mojica on 01-06-2024 Platelet mean volume (Bld) [Entitic vol] 8.4 fL Normal 6.3-10.7 [facility] Comment on above: Performed By: #### C BC, CMP wRFX A1C ####[facility] [id number] [address] Platelets [#/volume] in Bloo d by Automated countOrdered By: Chuy Mojica on 01-06-2024 Platelets (Bld) [#/Vol] 249 10*3/uL Normal 150-450 [facility] Comment on above: Performed By: #### C BC, CMP wRFX A1C ####[facility] [id number] [address] Potassium [Moles/volume] in Serum or PlasmaOrdered By: Chuy Mojica on 01-06-2024 Potassium [Moles/Vol] 3.4 mmol/L Low 3.5-5.1 [facility] Comment on above: Performed By: #### C BC, CMP wRFX A1C ####[place] [id number] [address] Protein [Mass/volume] in Ser um or PlasmaOrdered By: Chuy Mojica on 01-06-2024 Protein [Mass/Vol] 7.1 g/dL Normal 6.4-8.9 [facility] Comment on above: Performed By: #### C BC, CMP wRFX A1C ####[place] [id number] Serum globulin measurement b y calculation (mass/volume)Ordered By: Chuy Mojica on 01-06-2024 Globulin (S) [Mass/Vol] 4.1 g/dL Normal [facility] Comment on above: Performed By: #### C EFRAÍN, CMP wRFX A1C ####[address] Serum or plasma albumin/glob ulin mass ratioOrdered By: Chuy Mojica on 01-06-2024 Albumin/Globulin [Mass ratio] 0.7 {ratio} Normal [facility] Comment on above: Performed By: #### C BC, CMP wRFX A1C ####[place] [address] [place] [id number] [facility] Serum or plasma anion gap de terminationOrdered By: Chuy Mojica on 01-06-2024 Anion gap [Moles/Vol] 9.2 mmol/L Normal 6.0-15.0 [facility] Comment on above: Performed By: #### C BC, CMP wRFX A1C ####[place] [address] [place] [address] [facility] Sodium [Moles/volume] in Ser um or PlasmaOrdered By: Chuy Mojica on 01-06-2024 Sodium [Moles/Vol] 133 mmol/L Low 136-145 [facility] Comment on above: Performed By: #### C BC, CMP wRFX A1C ####[place] [address] [place] [id number] [facility] Urea nitrogen [Mass/volume] in Serum or PlasmaOrdered By: Chuy Mojica on 01-06-2024 Urea nitrogen [Mass/Vol] 10 mg/dL Normal 7-25 [facility] Comment on above: Performed By: #### C BC, CMP wRFX A1C ####[place] [id number] [facility] XR shoulder RT min 2V*on XR shoulder RT min 2V* Normal Th [facility] Automated basophil %Ordered By: Pete Spaulding on 12-12-2023 Basophils/100 WBC (Bld) 2.6 % Normal . F [facility] Comment on above: Performed By: #### C BC, HCGQUAL, BMP ####[place] [address] [place] [id number] [facility] Automated basophil countOrde red By: Pete Spaulding on 12-12-2023 Basophils (Bld) [#/Vol] 0.2 10*3/uL Normal 0.0-0.2 [facility] Comment on above: Result Comment: PERF ORMED BY:[address] [place], [place] [id number] MEDICAL DIRECTORESTRADA GUZMAN M.D. Performed By: #### C BC, HCGQUAL, BMP ####[place] [address] [place] [id number] [facility] Automated blood monocyte cou ntOrdered By: Pete Spaulding on 12-12-2023 Monocytes (Bld) [#/Vol] 1.0 10*3/uL High 0.0-0.8 [facility] Comment on above: Performed By: #### C BC, HCGQUAL, BMP ####[address] Automated eosinophil %Ordere d By: Pete Spaulding on 12-12-2023 Eosinophils/100 WBC (Bld) 2.0 % Normal . [facility] Comment on above: Performed By: #### C BC, HCGQUAL, BMP ####[address] Automated eosinophil countOr dered By: Pete Spaulding on 12-12-2023 Eosinophils (Bld) [#/Vol] 0.2 10*3/uL Normal 0.0-0.45 [facility] Comment on above: Performed By: #### C BC, HCGQUAL, BMP ####[address] Automated monocyte %Ordered By: Pete Spaulding on 12-12-2023 Monocytes/100 WBC (Bld) 11.5 % Normal . [facility] Comment on above: Performed By: #### C BC, HCGQUAL, BMP ####[address] Automated neutrophil %Ordere d By: Pete Spaulding on 12-12-2023 Neutrophils/100 WBC (Bld) 40.3 % Normal . [facility] Comment on above: Performed By: #### C BC, HCGQUAL, BMP ####[address] Basic Metabolic Panelon 11-23 Creatinine Clr Calc Pharmacy 16.47 Normal [facility] Comment on above: Performed By: #### C BC, HCGQUAL, BMP ####[address] GFR/1.73 sq M.predicted MDRD (S/P/Bld) [Vol rate/Area] 14.177 mL/min/{1.73_m2} Normal [facility] Comment on above: Performed By: #### C BC, HCGQUAL, BMP ####[address] [place] [address] [facility] Calcium [Mass/volume] in Ser um or PlasmaOrdered By: Pete Spaulding on 12-12-2023 Calcium [Mass/Vol] 8.7 mg/dL Normal 8.6-10.3 [facility] Comment on above: Performed By: #### C BC, HCGQUAL, BMP ####[place] [address] [place] [id number] [facility] Carbon dioxide, total [Moles /volume] in Serum or PlasmaOrdered By: Pete Spaulding on 12-12-2023 CO2 [Moles/Vol] 25.1 mmol/L Normal 21.0-31.0 [facility] Comment on above: Performed By: #### C BC, HCGQUAL, BMP ####[place] [address] [place] [id number] [facility] Chloride [Moles/volume] in S jie or PlasmaOrdered By: Pete Spaulding on 12-12-2023 Chloride [Moles/Vol] 98 mmol/L Normal 98-107 [facility] Comment on above: Performed By: #### C BC, HCGQUAL, BMP ####[place] [address] [place] [id number] [facility] Choriogonadotropin.beta subu nit [Units/volume] in Serum or PlasmaOrdered By: Pete Spaulding on 12-12-2023 HCG.beta subunit Qn Indeterminate [facility] Comment on above: Result may be indica tive of an early but should be interpreted in light of the clinical findings and supported by retesting in 48 hours if indicated. Complete Blood Count Auto Di ffon 12-12-2023 Mean Corpuscular HGB Conc 32.8 g/dL Normal 32.0-35.0 [facility] Comment on above: Performed By: #### C BC, HCGQUAL, BMP ####[facility] [place] [id number] [facility] NRBC% 0.1 /100{WBC} Normal 0-0.5 [facility] Comment on above: Performed By: #### C BC, HCGQUAL, BMP ####[place] [address] [place] [id number] [facility] Creatinine [Mass/volume] in Serum or PlasmaOrdered By: Pete Spaulding on 12-12-2023 Creatinine [Mass/Vol] 3.92 mg/dL High 0.60-1.20 [facility] Comment on above: Performed By: #### C BC, HCGQUAL, BMP ####[place] [address] [place] [id number] [facility] Erythrocyte distribution wid th [Ratio] by Automated countOrdered By: Pete Spaulding on 12-12-2023 Erythrocyte distribution width (RBC) [Ratio] 15.8 % High 11.9-15.3 [facility] Comment on above: Performed By: #### C BC, HCGQUAL, BMP ####[place] [address] [place] [id number] [facility] Erythrocytes [#/volume] in B lood by Automated countOrdered By: Pete Spaulding on 12-12-2023 RBC (Bld) [#/Vol] 3.33 10*6/uL Low 3.60-5.00 [facility] Comment on above: Performed By: #### C BC, HCGQUAL, BMP ####[place] [id number] [facility] Glucose [Mass/volume] in Ser um or PlasmaOrdered By: Pete Spaulding on 12-12-2023 Glucose [Mass/Vol] 67 mg/dL Low 70-100 [facility] Comment on above: ADA recommended refe rence rangeRandom Glucose Reference Range is dependent on time and content of last meal. Glucose of more than 200 mg/dL in a nonstressed, ambulatory subject supports the diagnosis of Diabetes Mellitus. Result Comment: [place] om Glucose Reference Range is dependent on time and content of last meal. Glucose of more than 200 mg/dL in a nonstressed, ambulatory subject supports the diagnosis of Diabetes Mellitus. ADA recommended reference range Performed By: #### C BC, HCGQUAL, BMP ####[place] [address] [place] [address] [facility] HCG,Qualitative Serumon 11-23 HCG,Qualitative Serum Indeterminate Normal [facility] Comment on above: Result Comment: Resu lt may be indicative of an early but should be interpreted in light of the clinical findings and supported by retesting in 48 hours if indicated.PERFORMED BY:[address] [place], [place] [phone] MEDICAL DIRECTORESTRADA GUZMAN M.D. Performed By: #### C BC, HCGQUAL, BMP ####[place] [id number] [facility] Hematocrit [Volume Fraction] of Blood by Automated countOrdered By: Pete Spaulding on 12-12-2023 Hematocrit (Bld) [Volume fraction] 28.8 % Low 34.0-46.4 [facility] Comment on above: Performed By: #### C BC, HCGQUAL, BMP ####[place] [id number] [facility] Hemoglobin [Mass/volume] in BloodOrdered By: Pete Spaulding on 12-12-2023 Hemoglobin (Bld) [Mass/Vol] 9.4 g/dL Low 11.8-15.4 [facility] Comment on above: Performed By: #### C BC, HCGQUAL, BMP ####[address] Leukocytes [#/volume] correc [place] for nucleated erythrocytes in Blood by Automated counOrdered By: Pete Spaulding on 12-12-2023 WBC corrected for nucl RBC Auto (Bld) [#/Vol] 9.0 10*3/uL 3.8-11.6 [facility] Leukocytes [#/volume] in Blo od by Automated countOrdered By: Pete Spaulding on 12-12-2023 WBC (Bld) [#/Vol] 9.0 10*3/uL Normal 3.8-11.6 [facility] Comment on above: Performed By: #### C BC, HCGQUAL, BMP ####[place] [id number] [facility] Lymphocytes [#/volume] in Bl ood by Automated countOrdered By: Pete Spaulding on 12-12-2023 Lymphocytes (Bld) [#/Vol] 3.9 10*3/uL Normal 1.00-4.8 [facility] Comment on above: Performed By: #### C EFRAÍN HCGQULUIS, BMP ####[address] Lymphocytes/100 leukocytes i n Blood by Automated countOrdered By: Pete Spaulding on 12-12-2023 Lymphocytes/100 WBC (Bld) 43.6 % Normal . [facility] Comment on above: Performed By: #### C EFRAÍN, HCGQUAL, BMP ####[address] MCH [Entitic mass] by Automa saskia countOrdered By: Pete Spaulding on 12-12-2023 MCH (RBC) [Entitic mass] 28.4 pg Normal 24.7-34.3 [facility] Comment on above: Performed By: #### C WEST KENNYQULUIS, BMP ####[address] MCHC Auto (RBC) [Mass/Vol]Or dered By: Pete Spaulding on 12-12-2023 MCHC (RBC) [Mass/Vol] 32.8 g/dL 32.0-35.0 [facility] MCV [Entitic volume] by Auto mated countOrdered By: Pete Spaulding on 12-12-2023 MCV (RBC) [Entitic vol] 86.5 fL Normal 80-[address] [facility] Comment on above: Performed By: #### C EFRAÍN HCGQULUIS, BMP ####[address] Neutrophils [#/volume] in Bl ood by Automated countOrdered By: Pete Spaulding on 12-12-2023 Neutrophils (Bld) [#/Vol] 3.6 10*3/uL Normal 1.8-7.7 [facility] Comment on above: Performed By: #### C BC, HCGQUAL, BMP ####[address] No Panel InformationOrdered By: Pete Spaulding on 12-12-2023 Estimated GFR (CKD-EPI) 14.177 mL/Min [facility] Creatinine Clearance (Chem 16.47 [facility] Nucleated erythrocytes [Pres ence] in Blood by Automated countOrdered By: Pete Spaulding on 12-12-2023 Nucleated RBC Auto Ql (Bld) 0.1 /100{WBC} 0-0.5 [facility] Platelet mean volume [Entiti c volume] in Blood by Automated countOrdered By: Pete Spaulding on 12-12-2023 Platelet mean volume (Bld) [Entitic vol] 8.4 fL Normal 6.3-10.7 [facility] Comment on above: Performed By: #### C CAROLINE KENNY, BMP ####[place] [address] [place] [id number] [facility] Platelets [#/volume] in Bloo d by Automated countOrdered By: Pete Spaulding on 12-12-2023 Platelets (Bld) [#/Vol] 187 10*3/uL Signific ant change down 150-450 [facility] Comment on above: [place]: [phone] on -[phone] Performed By: #### C CAROLINE KENNY, BMP ####[place] [id number] [facility] Potassium [Moles/volume] in Serum or PlasmaOrdered By: Pete Spaulding on 12-12-2023 Potassium [Moles/Vol] 4.1 mmol/L Normal 3.5-5.1 [facility] Comment on above: Performed By: #### C CAROLINE KENNY, BMP ####[place] [address] [place] [id number] [facility] Serum or plasma anion gap de terminationOrdered By: Pete Spaulding on 12-12-2023 Anion gap [Moles/Vol] 11.0 mmol/L Normal 6.0-15.0 [facility] Comment on above: Performed By: #### C BC, HCGQULUIS, BMP ####[place] [address] [place] [address] [facility] Sodium [Moles/volume] in Ser um or PlasmaOrdered By: Pete Spaulding on 12-12-2023 Sodium [Moles/Vol] 130 mmol/L Low 136-145 [facility] Comment on above: Performed By: #### C BC, HCGQUAL, BMP ####[place] [address] [place] [address] [facility] Urea nitrogen [Mass/volume] in Serum or PlasmaOrdered By: Pete Spaulding on 12-12-2023 Urea nitrogen [Mass/Vol] 5 mg/dL Low 7-25 [facility] Comment on above: Performed By: #### C EFRAÍN, HCGQUAL, BMP ####[place] [address] [place] [address] [facility] XR chest 1V portableon 12-11 XR chest 1V portable Normal [facility] Anisocytosis [Presence] in B lood by Light microscopyOrdered By: Patria Saldana on 12-10-2023 Anisocytosis Ql (Bld) Slight Normal [facility] Comment on above: Performed By: #### B MP, DIFF CBC ####[place] [id number] [facility] Basic Metabolic Panelon 11-23 Creatinine Clr Calc Pharmacy 15.02 Normal [facility] Comment on above: Result Comment: PERF ORMED BY:[address] [place], [place] [phone] MEDICAL DIRECTORESTRADA GUZMAN M.D. Performed By: #### B MP, DIFF CBC ####[place] [id number] [facility] GFR/1.73 sq M.predicted MDRD (S/P/Bld) [Vol rate/Area] 12.688 mL/min/{1.73_m2} Normal [facility] Comment on above: Performed By: #### B MP, DIFF CBC ####[place] [id number] [facility] Basophils Auto (Bld) [#/Vol] Ordered By: Patria Saldana on 12-10-2023 Basophils (Bld) [#/Vol] N/A F [facility] Basophils/100 WBC Auto (Bld) Ordered By: Patria Saldana on 12-10-2023 Basophils/100 WBC (Bld) N/A F [facility] Basophils/100 leukocytes in Blood by Manual countOrdered By: Patria Saldana on 12-10-2023 Basophils/100 WBC (Bld) 1 % Normal 0-[address] [facility] Comment on above: Performed By: #### B MP, DIFF CBC ####[place] [id number] [place] Calcium [Mass/volume] in Ser um or PlasmaOrdered By: Patria Saldana on 12-10-2023 Calcium [Mass/Vol] 8.5 mg/dL Low 8.6-10.3 [facility] Comment on above: Performed By: #### B MP, DIFF CBC ####[place] [id number] [facility] Carbon dioxide, total [Moles /volume] in Serum or PlasmaOrdered By: Patrai Saldana on 12-10-2023 CO2 [Moles/Vol] 27.0 mmol/L Normal 21.0-31.0 [facility] Comment on above: Performed By: #### B MP, DIFF CBC ####[place] [id number] [place] Chloride [Moles/volume] in S jie or PlasmaOrdered By: Patria Saldana on 12-10-2023 Chloride [Moles/Vol] 98 mmol/L Normal 98-107 [facility] Comment on above: Performed By: #### B MP, DIFF CBC ####[place] [id number] [place] Creatinine [Mass/volume] in Serum or PlasmaOrdered By: Patria Saldana on 12-10-2023 Creatinine [Mass/Vol] 4.30 mg/dL High 0.60-1.20 [facility] Comment on above: Performed By: #### B MP, DIFF CBC ####[address] [address] [place] Diff and CBCon 12-10-2023 Hypochromasia Slight Normal [facility] Comment on above: Performed By: #### B MP, DIFF CBC ####[place] [id number] [facility] Mean Corpuscular HGB Conc 32.7 g/dL Normal 32.0-35.0 [facility] Comment on above: Performed By: #### B MP, DIFF CBC ####[address] Monocytes/100 WBC (Bld) 19.92 % Normal 0.00-20.00 [facility] Comment on above: Performed By: #### B MP, DIFF CBC ####[address] Ovalocytes Slight Normal [facility] Comment on above: Performed By: #### B MP, DIFF CBC ####[address] Platelet Estimate Normal Normal Normal [facility] Comment on above: Performed By: #### B MP, DIFF CBC ####[place] [id number] [facility] Platelet Morphology Normal Normal Normal [facility] Comment on above: Result Comment: PERF ORMED BY:[address] [place], [place] [phone] MEDICAL FCO GUZMAN M.D. Performed By: #### B MP, DIFF CBC ####[place] [id number] [facility] Poikilocytosis Slight Normal [facility] Comment on above: Performed By: #### B MP, DIFF CBC ####[place] [id number] [facility] Reactive Lymphocytes 1 % Normal 0-12 [facility] Comment on above: Performed By: #### B MP, DIFF CBC ####[place] [id number] [facility] Schistocytes Slight Normal [facility] Comment on above: Performed By: #### B MP, DIFF CBC ####[address] [place] [address] [facility] Target Cells Slight Normal [facility] Comment on above: Performed By: #### B MP, DIFF CBC ####[place] [id number] Eosinophils Auto (Bld) [#/Vo l]Ordered By: Patria Saldana on 12-10-2023 Eosinophils (Bld) [#/Vol] N/A [facility] Eosinophils/100 WBC Auto (Bl d)Ordered By: Patriaceci Saldana on 12-10-2023 Eosinophils/100 WBC (Bld) N/A [facility] Erythrocyte distribution wid th [Ratio] by Automated countOrdered By: Patria Saldana on 12-10-2023 Erythrocyte distribution width (RBC) [Ratio] 15.8 % High 11.9-15.3 [facility] Comment on above: Performed By: #### B MP, DIFF CBC ####[address] Erythrocytes [#/volume] in B lood by Automated countOrdered By: Patria Saldana on 12-10-2023 RBC (Bld) [#/Vol] 3.20 10*6/uL Low 3.60-5.00 [facility] Comment on above: Performed By: #### B MP, DIFF CBC ####[place] [id number] [facility] Glucose [Mass/volume] in Ser um or PlasmaOrdered By: Patria Saldana on 12-10-2023 Glucose [Mass/Vol] 82 mg/dL Normal 70-100 [facility] Comment on above: ADA recommended refe rence rangeRandom Glucose Reference Range is dependent on time and content of last meal. Glucose of more than 200 mg/dL in a nonstressed, ambulatory subject supports the diagnosis of Diabetes Mellitus. Result Comment: [place] om Glucose Reference Range is dependent on time and content of last meal. Glucose of more than 200 mg/dL in a nonstressed, ambulatory subject supports the diagnosis of Diabetes Mellitus. ADA recommended reference range Performed By: #### B MP, DIFF CBC ####[facility] [id number] [address] Hematocrit [Volume Fraction] of Blood by Automated countOrdered By: Patria Saldana on 12-10-2023 Hematocrit (Bld) [Volume fraction] 27.9 % Low 34.0-46.4 [facility] Comment on above: Performed By: #### B MP, DIFF CBC ####[place] [id number] Hemoglobin [Mass/volume] in BloodOrdered By: Patria Saldana on 12-10-2023 Hemoglobin (Bld) [Mass/Vol] 9.1 g/dL Low 11.8-15.4 [facility] Comment on above: Performed By: #### B MP, DIFF CBC ####[place] [id number] Hypochromia LM Ql (Bld)Order ed By: Patria Saldana on 12-10-2023 Hypochromia Ql (Bld) Slight [facility] Leukocytes [#/volume] correc [place] for nucleated erythrocytes in Blood by Automated counOrdered By: Patria Saldana on 12-10-2023 WBC corrected for nucl RBC Auto (Bld) [#/Vol] 9.3 10*3/uL 3.8-11.6 [facility] Leukocytes [#/volume] in Blo od by Automated countOrdered By: Patria Saldana on 12-10-2023 WBC (Bld) [#/Vol] 9.3 10*3/uL Normal 3.8-11.6 [facility] Comment on above: Performed By: #### B MP, DIFF CBC ####[place] [id number] Lymphocytes Auto (Bld) [#/Vo l]Ordered By: Patria Saldana on 12-10-2023 Lymphocytes (Bld) [#/Vol] N/A [facility] Lymphocytes/100 WBC Auto (Bl d)Ordered By: Patria Saldana on 12-10-2023 Lymphocytes/100 WBC (Bld) N/A [facility] Lymphocytes/100 leukocytes i n Blood by Manual countOrdered By: Patria Saldana on 12-10-2023 Lymphocytes/100 WBC (Bld) 31 % Normal 18-42 [facility] Comment on above: Performed By: #### B MP, DIFF CBC ####[address] MCH [Entitic mass] by Automa saskia countOrdered By: Patria Saldana on 12-10-2023 MCH (RBC) [Entitic mass] 28.5 pg Normal 24.7-34.3 [facility] Comment on above: Performed By: #### B MP, DIFF CBC ####[address] MCHC Auto (RBC) [Mass/Vol]Or dered By: Patria Saldana on 12-10-2023 MCHC (RBC) [Mass/Vol] 32.7 g/dL 32.0-35.0 [facility] MCV [Entitic volume] by Auto mated countOrdered By: Patria Saldana on 12-10-2023 MCV (RBC) [Entitic vol] 87.1 fL Normal 80-[address] [facility] Comment on above: Performed By: #### B MP, DIFF CBC ####[address] Manual blood segmented neutr ophils/100 leukocytesOrdered By: Patria Saldana on 12-10-2023 Segmented neutrophils/100 WBC (Bld) 64 % Normal 50-70 [facility] Comment on above: Performed By: #### B MP, DIFF CBC ####[address] Monocyte distribution width [Entitic volume] in Blood by AutomatedOrdered By: Patria Saldana on 12-10-2023 Monocyte distribution width Auto (Bld) [Entitic vol] 19.92 % 0.00-20.00 [facility] Monocytes Auto (Bld) [#/Vol] Ordered By: Patria Saldana on 12-10-2023 Monocytes (Bld) [#/Vol] N/A F [facility] Monocytes/100 WBC Auto (Bld) Ordered By: Patria Saldana on 12-10-2023 Monocytes/100 WBC (Bld) N/A F [facility] Monocytes/100 leukocytes in Blood by Manual countOrdered By: Patria Saldana on 12-10-2023 Monocytes/100 WBC (Bld) 4 % Normal 2-[address] [facility] Comment on above: Performed By: #### B MP, DIFF CBC ####[facility] [id number] [place] [address] [facility] Neutrophils Auto (Bld) [#/Vo l]Ordered By: Patria Saldana on 12-10-2023 Neutrophils (Bld) [#/Vol] N/A [facility] Neutrophils/100 WBC Auto (Bl d)Ordered By: Patria Saldana on 12-10-2023 Neutrophils/100 WBC (Bld) N/A [facility] No Panel InformationOrdered By: Patria Saldana on 12-10-2023 Estimated GFR (CKD-EPI) 12.688 mL/Min [facility] Creatinine Clearance (Chem 15.02 [facility] Nucleated erythrocytes [Pres ence] in Blood by Automated countOrdered By: Patria Saldana on 12-10-2023 Nucleated RBC Auto Ql (Bld) N/A [facility] Ovalocyte detectionOrdered B y: Patria Saldana on 12-10-2023 Ovalocytes LM Ql (Bld) [facility] Platelet adequacy [Presence] in Blood by Light microscopyOrdered By: Patria Saldana on 12-10-2023 Platelets LM Ql (Bld) Normal Normal [facility] Platelet mean volume [Entiti c volume] in Blood by Automated countOrdered By: Patria Saldana on 12-10-2023 Platelet mean volume (Bld) [Entitic vol] 8.0 fL Normal 6.3-10.7 [facility] Comment on above: Performed By: #### B MP, DIFF CBC ####[facility] [id number] [place] [address] [facility] Platelet morphology finding [Identifier] in BloodOrdered By: Patria Saldana on 12-10-2023 Platelet morphology finding Nom (Bld) Normal Normal [facility] Platelets [#/volume] in Bloo d by Automated countOrdered By: Patria Saldana on 12-10-2023 Platelets (Bld) [#/Vol] 239 10*3/uL Normal 150-450 [facility] Comment on above: Performed By: #### B MP, DIFF CBC ####[facility] [id number] [place] [id number] [facility] Poikilocytosis [Presence] in Blood by Light microscopyOrdered By: Patria Saldana on 12-10-2023 Poikilocytosis LM Ql (Bld) [facility] Potassium [Moles/volume] in Serum or PlasmaOrdered By: Patria Saldana on 12-10-2023 Potassium [Moles/Vol] 4.3 mmol/L Normal 3.5-5.1 [facility] Comment on above: Performed By: #### B MP, DIFF CBC ####[id number] [place] [id number] [facility] RBC morphologyOrdered By: Luis Saldana on 12-10-2023 RBC morphology finding Nom (Bld) N/A [facility] Schistocytes [Presence] in B lood by Light microscopyOrdered By: Patria Saldana on 12-10-2023 Schistocytes LM Ql (Bld) [facility] Serum or plasma anion gap de terminationOrdered By: Patria Saldana on 12-10-2023 Anion gap [Moles/Vol] 9.3 mmol/L Normal 6.0-15.0 [facility] Comment on above: Performed By: #### B MP, DIFF CBC ####[facility] [id number] [place] [id number] [place] Sodium [Moles/volume] in Ser um or PlasmaOrdered By: Patria Saldana on 12-10-2023 Sodium [Moles/Vol] 130 mmol/L Low 136-145 [facility] Comment on above: Performed By: #### B MP, DIFF CBC ####[facility] [id number] [place] [id number] [facility] Target cellsOrdered By: Chiara Saldana on 12-10-2023 Target cells LM Ql (Bld) Slight [facility] Urea nitrogen [Mass/volume] in Serum or PlasmaOrdered By: Patria Saldana on 12-10-2023 Urea nitrogen [Mass/Vol] 9 mg/dL Normal 7-25 [facility] Comment on above: Performed By: #### B MP, DIFF CBC ####[facility] [id number] [place] [address] [facility] Variant lymphocytes/100 WBC Manual cnt (Bld)Ordered By: Patria Saldana on 12-10-2023 Variant lymphocytes/100 WBC (Bld) 1 % 0-12 [facility] XR chest 2V*on 12-10-2023 XR chest 2V* Normal [facility] shoulder RT wo conon 10-24 CT shoulder RT wo con Normal [facility] XR shoulder RT min 2V*on XR shoulder RT min 2V* Normal Th e [facility] Albumin [Mass/volume] in Ser um or Plasma by Bromocresol green (BCG) dye binding methoOrdered By: Pedro Floyd on 09-27-2023 Albumin BCG dye [Mass/Vol] 2.0 g/dL Low 3.5-5.7 [facility] Calcium [Mass/volume] in Ser um or PlasmaOrdered By: Pedro Floyd on 09-27-2023 Calcium [Mass/Vol] 8.8 mg/dL Normal 8.6-10.3 [facility] Comment on above: Performed By: #### R ENAL ####[facility] [address] [place] [id number] [facility] Capillary blood glucose annalee urement by glucometer (mass/volume)Ordered By: Beba Ng on 09-27-2023 Glucose [Mass/Vol] 68 mg/dL Normal [facility] Comment on above: Random Glucose Refer ence Range is dependent on time and content of last meal. Glucose of more than 200 mg/dL in a nonstressed, ambulatory subject supports the diagnosis of Diabetes Mellitus. Result Comment: [facility][note 3] Glucose Reference Range is dependent on time and content of last meal. Glucose of more than 200 mg/dL in a nonstressed, ambulatory subject supports the diagnosis of Diabetes Mellitus. Performed By: #### G LULS ####Point of Care testing, Carbon dioxide, total [Moles /volume] in Serum or PlasmaOrdered By: Pedro Floyd on 09-27-2023 CO2 [Moles/Vol] 31.3 mmol/L High 21.0-31.0 [facility] Comment on above: Performed By: #### R ENAL ####[address] [place] [address] [facility] Chloride [Moles/volume] in S jie or PlasmaOrdered By: Pedro Floyd on 09-27-2023 Chloride [Moles/Vol] 91 mmol/L Low 98-107 [facility] Comment on above: Performed By: #### R ENAL ####[address] [address] [facility] Creatinine [Mass/volume] in Serum or PlasmaOrdered By: Pedro Floyd on 09-27-2023 Creatinine [Mass/Vol] 4.87 mg/dL High 0.60-1.20 [facility] Comment on above: Performed By: #### R ENAL ####[address] [address] [facility] Glucose Poct Glucometerson 0 - Commemt1 Glu2: Cleaned Meter Normal [facility] Comment on above: Result Comment: PERF ORMED BY:[address] [place], [place] [phone] MEDICAL DIRECTORESTRADA GUZMAN M.D. Performed By: #### G LULS ####Point of Care testing, Glucose [Mass/Vol] 86 mg/dL Normal [facility] Comment on above: Result Comment: [facility][note 3] Glucose Reference Range is dependent on time and content of last meal. Glucose of more than 200 mg/dL in a nonstressed, ambulatory subject supports the diagnosis of Diabetes Mellitus.PERFORMED BY:[id number] [place], [place] [phone] MEDICAL DIRECTORESTRADA GUZMAN M.D. Performed By: #### G CATARINO ####Point of Care testing, Glucose [Mass/Vol] 75 mg/dL Normal [facility] Comment on above: Result Comment: [place] om Glucose Reference Range is dependent on time and content of last meal. Glucose of more than 200 mg/dL in a nonstressed, ambulatory subject supports the diagnosis of Diabetes Mellitus.PERFORMED BY:[place] [place] [place], [place] [phone] MEDICAL DIRECTORESTRADA GUZMAN M.D. Performed By: #### G CATARINO ####Point of Care testing, Glucose [Mass/volume] in Ser um or PlasmaOrdered By: Pedro Floyd on 09-27-2023 Glucose [Mass/Vol] 87 mg/dL Normal 70-100 [facility] Comment on above: ADA recommended refe rence rangeRandom Glucose Reference Range is dependent on time and content of last meal. Glucose of more than 200 mg/dL in a nonstressed, ambulatory subject supports the diagnosis of Diabetes Mellitus. Result Comment: [facility][note 3] Glucose Reference Range is dependent on time and content of last meal. Glucose of more than 200 mg/dL in a nonstressed, ambulatory subject supports the diagnosis of Diabetes Mellitus. ADA recommended reference range Performed By: #### R ENAL ####[facility] [id number] [place] [address] [facility] No Panel InformationOrdered By: Beba Ng on 09-27-2023 Bedside Glucose Comment Glu2: cleaned meter [facility] No Panel InformationOrdered By: Pedro Floyd on 09-27-2023 Estimated GFR (CKD-EPI) 10.928 mL/Min [facility] Creatinine Clearance (Chem 13.26 [facility] Phosphate [Mass/volume] in S jie or PlasmaOrdered By: Pedro Floyd on 09-27-2023 Phosphate [Mass/Vol] 2.7 mg/dL Normal 2.5-4.5 [facility] Comment on above: Performed By: #### R ENAL ####[address] [address] [facility] Potassium [Moles/volume] in Serum or PlasmaOrdered By: Pedro Everett on 09-27-2023 Potassium [Moles/Vol] 3.6 mmol/L Normal 3.5-5.1 [facility] Comment on above: Performed By: #### R ENAL ####[place] [id number] [facility] Renal Function Panelon 09-26 Albumin [Mass/Vol] 2.0 g/dL Low 3.5-5.7 [facility] Comment on above: Performed By: #### R ENAL ####[place] [id number] [facility] Creatinine Clr Calc Pharmacy 13.26 Normal [facility] Comment on above: Result Comment: PERF ORMED BY:[address] [place], [place] [phone] MEDICAL DIRECTORESTRADA GUZMAN M.D. Performed By: #### R ENAL ####[place] [id number] [facility] GFR/1.73 sq M.predicted MDRD (S/P/Bld) [Vol rate/Area] 10.928 mL/min/{1.73_m2} Normal [facility] Comment on above: Performed By: #### R ENAL ####[place] [id number] [facility] Serum or plasma anion gap de terminationOrdered By: Pedro Everett on 09-27-2023 Anion gap [Moles/Vol] 10.3 mmol/L Normal 6.0-15.0 [facility] Comment on above: Performed By: #### R ENAL ####[place] [id number] [facility] Sodium [Moles/volume] in Ser um or PlasmaOrdered By: Pedro Everett on 09-27-2023 Sodium [Moles/Vol] 129 mmol/L Low 136-145 [facility] Comment on above: Performed By: #### R ENAL ####[address] [address] [facility] Urea nitrogen [Mass/volume] in Serum or PlasmaOrdered By: Pedro Floyd on 09-27-2023 Urea nitrogen [Mass/Vol] 14 mg/dL Normal 7-25 [facility] Comment on above: Performed By: #### R ENAL ####[address] [address] [facility] Glucose Poct Glucometerson 0 09-26-2023 Glucose [Mass/Vol] 84 mg/dL Normal [facility] Comment on above: Result Comment: [facility][note 3] Glucose Reference Range is dependent on time and content of last meal. Glucose of more than 200 mg/dL in a nonstressed, ambulatory subject supports the diagnosis of Diabetes Mellitus.PERFORMED BY:[address] [place], [place] [phone] MEDICAL DIRECTORESTRADA GUZMAN M.D. Performed By: #### G LULS ####Point of Care testing, Glucose [Mass/Vol] 88 mg/dL Normal [facility] Comment on above: Result Comment: [facility][note 3] Glucose Reference Range is dependent on time and content of last meal. Glucose of more than 200 mg/dL in a nonstressed, ambulatory subject supports the diagnosis of Diabetes Mellitus.PERFORMED BY:[place] [address] [address] [place] [place], [place] [phone] MEDICAL FCO GUZMAN M.D. Performed By: #### G LULS ####Point of Care testing, Commemt1 Glu2: Cleaned Meter Normal [facility] Comment on above: Result Comment: PERF ORMED BY:[place] [address] [address], [place] [phone] MEDICAL FCO GUZMAN M.D. Performed By: #### G LULS ####Point of Care testing, Glucose [Mass/Vol] 65 mg/dL Normal [facility] Comment on above: Result Comment: [place] [facility] Glucose Reference Range is dependent on time and content of last meal. Glucose of more than 200 mg/dL in a nonstressed, ambulatory subject supports the diagnosis of Diabetes Mellitus. Performed By: #### G LULS ####Point of Care testing, Commemt1 Glu2: Cleaned Meter Normal [facility] Comment on above: Result Comment: PERF ORMED BY:[address] [address] [address] [place], [place] [phone] MEDICAL DIRECTORESTRADA GUZMAN M.D. Performed By: #### G LULS ####Point of Care testing, Glucose [Mass/Vol] 69 mg/dL Normal [facility] Comment on above: Result Comment: [place] [facility] Glucose Reference Range is dependent on time and content of last meal. Glucose of more than 200 mg/dL in a nonstressed, ambulatory subject supports the diagnosis of Diabetes Mellitus. Performed By: #### G LULS ####Point of Care testing, Glucose Poct Glucometerson 0 09-25-2023 Glucose [Mass/Vol] 94 mg/dL Normal [facility] Comment on above: Result Comment: [place] [facility] Glucose Reference Range is dependent on time and content of last meal. Glucose of more than 200 mg/dL in a nonstressed, ambulatory subject supports the diagnosis of Diabetes Mellitus.PERFORMED BY:[address]RLenore[place], [place] [phone] MEDICAL FCO GUZMAN M.D. Performed By: #### G LULS ####Point of Care testing, Glucose [Mass/Vol] 75 mg/dL Normal [facility] Comment on above: Result Comment: [place] om Glucose Reference Range is dependent on time and content of last meal. Glucose of more than 200 mg/dL in a nonstressed, ambulatory subject supports the diagnosis of Diabetes Mellitus.PERFORMED BY:[address] [place] [place], [place] [phone] MEDICAL FCO GUZMAN M.D. Performed By: #### G LULS ####Point of Care testing, Glucose [Mass/Vol] 91 mg/dL Normal [facility] Comment on above: Result Comment: [facility][note 3] Glucose Reference Range is dependent on time and content of last meal. Glucose of more than 200 mg/dL in a nonstressed, ambulatory subject supports the diagnosis of Diabetes Mellitus.PERFORMED BY:[place] [address] [address] [place]WATBrianaLenore[place]ET[place], [place] [phone] MEDICAL DIRECTORESTRADA GUZMAN M.D. Performed By: #### G LULS ####Point of Care testing, Glucose [Mass/Vol] 79 mg/dL Normal [facility] Comment on above: Result Comment: [facility][note 3] Glucose Reference Range is dependent on time and content of last meal. Glucose of more than 200 mg/dL in a nonstressed, ambulatory subject supports the diagnosis of Diabetes Mellitus.PERFORMED BY:[address] SARWATBrianaLenoreDM, [place] [phone] MEDICAL DIRECTORESTRADA GUZMAN M.D. Performed By: #### G LULS ####Point of Care testing, Renal Function Panelon 09-24 Albumin [Mass/Vol] 2.0 g/dL Low 3.5-5.7 [facility] Comment on above: Order Comment: needs drawn not drawn today Performed By: #### R ENAL ####[place] [id number] [facility] Anion gap [Moles/Vol] 9.0 mmol/L Normal 6.0-15.0 [facility] Comment on above: Order Comment: needs drawn not drawn today Performed By: #### R ENAL ####[place] [id number] [facility] Calcium [Mass/Vol] 8.6 mg/dL Normal 8.6-10.3 [facility] Comment on above: Order Comment: needs drawn not drawn today Performed By: #### R ENAL ####[place] [id number] [facility] Chloride [Moles/Vol] 94 mmol/L Low 98-107 [facility] Comment on above: Order Comment: needs drawn not drawn today Performed By: #### R ENAL ####[place] [id number] [facility] CO2 [Moles/Vol] 30.7 mmol/L Normal 21.0-31.0 [facility] Comment on above: Order Comment: needs drawn not drawn today Performed By: #### R ENAL ####[place] [id number] [facility] Creatinine [Mass/Vol] 5.32 mg/dL Significan t change up 0.60-1.20 [facility] Comment on above: Order Comment: needs drawn not drawn today Performed By: #### R ENAL ####[place] [id number] [facility] Creatinine Clr Calc Pharmacy 12.14 Normal [facility] Comment on above: Order Comment: needs drawn not drawn today Result Comment: PERF ORMED BY:[address] [place]WATBrianaLenore[place], [place] [phone] MEDICAL FCO GUZMAN M.D. Performed By: #### R ENAL ####[place] [id number] [facility] GFR/1.73 sq M.predicted MDRD (S/P/Bld) [Vol rate/Area] 9.827 mL/min/{1.73_m2} Normal [facility] Comment on above: Order Comment: needs drawn not drawn today Performed By: #### R ENAL ####[place] [id number] [facility] Glucose [Mass/Vol] 86 mg/dL Normal 70-100 [facility] Comment on above: Order Comment: needs drawn not drawn today Result Comment: [place] Glucose Reference Range is dependent on time and content of last meal. Glucose of more than 200 mg/dL in a nonstressed, ambulatory subject supports the diagnosis of Diabetes Mellitus. ADA recommended reference range Performed By: #### R ENAL ####[place] [id number] [facility] Phosphate [Mass/Vol] 3.3 mg/dL Normal 2.5-4.5 [facility] Comment on above: Order Comment: needs drawn not drawn today Performed By: #### R ENAL ####[id number] [place] [address] [facility] Potassium [Moles/Vol] 3.7 mmol/L Normal 3.5-5.1 [facility] Comment on above: Order Comment: needs drawn not drawn today Performed By: #### R ENAL ####[address] [place] [address] [facility] Sodium [Moles/Vol] 130 mmol/L Low 136-145 [facility] Comment on above: Order Comment: needs drawn not drawn today Performed By: #### R ENAL ####[address] [address] [facility] Urea nitrogen [Mass/Vol] 15 mg/dL Normal 7-25 [facility] Comment on above: Order Comment: needs drawn not drawn today Performed By: #### R ENAL ####[address] [address] [facility] Alanine aminotransferase [En zymatic activity/volume] in Serum or PlasmaOrdered By: Tani Meehan on 09-24-2023 ALT [Catalytic activity/Vol] 14 U/L Normal 7-52 [facility] Comment on above: Performed By: #### C MP, CBC ####[address] [address] [facility] Alkaline phosphatase [Enzyma tic activity/volume] in Serum or PlasmaOrdered By: Tani Meehan on 09-24-2023 ALP [Catalytic activity/Vol] 250 U/L High 34-104 [facility] Comment on above: Performed By: #### C MP, CBC ####[address] [address] [place] Ammonia [Moles/volume] in Pl asmaOrdered By: Pedro Floyd on 09-24-2023 Ammonia (P) [Moles/Vol] 30 umol/L Normal 11-[address] [facility] Comment on above: Result Comment: PERF ORMED BY:[address] [place], [place] [phone] MEDICAL DIRECTORESTRADA SchwartzD. Performed By: #### A MM ####[address] Aspartate aminotransferase [ Enzymatic activity/volume] in Serum or PlasmaOrdered By: Tani Meehan on 09-24-2023 AST [Catalytic activity/Vol] 20 U/L Normal 13-39 [facility] Comment on above: Performed By: #### C MP, CBC ####[address] Automated basophil %Ordered By: Tanijohn Meehan on 09-24-2023 Basophils/100 WBC (Bld) 1.4 % Normal . [facility] Comment on above: Performed By: #### C MP, CBC ####[address] Automated basophil countOrde red By: Tani Meehan on 09-24-2023 Basophils (Bld) [#/Vol] 0.2 10*3/uL Normal 0.0-0.2 [facility] Comment on above: Result Comment: PERF ORMED BY:[address] [place], [place] [phone] MEDICAL FCO GUZMAN M.D. Performed By: #### C MP, CBC ####[address] Automated blood monocyte cou ntOrdered By: Tanijohn Meehan on 09-24-2023 Monocytes (Bld) [#/Vol] 1.8 10*3/uL High 0.0-0.8 [facility] Comment on above: Performed By: #### C MP, CBC ####[address] Automated eosinophil %Ordere d By: Tanijohn Meehan on 09-24-2023 Eosinophils/100 WBC (Bld) 1.2 % Normal . [facility] Comment on above: Performed By: #### C MP, CBC ####[address] [address] [place] Automated eosinophil countOr dered By: Tani Meehan on 09-24-2023 Eosinophils (Bld) [#/Vol] 0.1 10*3/uL Normal 0.0-0.45 [facility] Comment on above: Performed By: #### C MP, CBC ####[address] Automated monocyte %Ordered By: Tani Meehan on 09-24-2023 Monocytes/100 WBC (Bld) 17.3 % Normal . [facility] Comment on above: Performed By: #### C MP, CBC ####[address] Automated neutrophil %Ordere d By: Tani Meehan on 09-24-2023 Neutrophils/100 WBC (Bld) 38.4 % Normal . [facility] Comment on above: Performed By: #### C MP, CBC ####[address] Bilirubin.total [Mass/volume ] in Serum or PlasmaOrdered By: Tani Meehan on 09-24-2023 Bilirubin [Mass/Vol] 0.9 mg/dL Normal 0.3-1.0 [facility] Comment on above: Performed By: #### C MP, CBC ####[address] Complete Blood Count Auto Di ffon 09-24-2023 Mean Corpuscular HGB Conc 33.0 g/dL Normal 32.0-35.0 [facility] Comment on above: Performed By: #### C MP, CBC ####[address] NRBC% 0.1 /100{WBC} Normal 0-0.5 [facility] Comment on above: Performed By: #### C MP, CBC ####[address] Comprehensive Metabolic Pane german 09-24-2023 Albumin [Mass/Vol] 2.1 g/dL Low 3.5-5.7 [facility] Comment on above: Performed By: #### C MP, CBC ####[address] Anion gap [Moles/Vol] 11.6 mmol/L Normal 6.0-15.0 [facility] Comment on above: Performed By: #### C MP, CBC ####[address] [address] Calcium [Mass/Vol] 8.3 mg/dL Low 8.6-10.3 [facility] Comment on above: Performed By: #### C MP, CBC ####[address] Chloride [Moles/Vol] 92 mmol/L Low 98-107 [facility] Comment on above: Performed By: #### C MP, CBC ####[address] CO2 [Moles/Vol] 30.2 mmol/L Normal 21.0-31.0 [facility] Comment on above: Performed By: #### C MP, CBC ####[address] Creatinine [Mass/Vol] 3.94 mg/dL Significan t change up 0.60-1.20 [facility] Comment on above: Performed By: #### C MP, CBC ####[address] Creatinine Clr Calc Pharmacy 16.39 Normal [facility] Comment on above: Result Comment: PERF ORMED BY:[address] [place], [place] [id number] MEDICAL FCO GUZMAN M.D. Performed By: #### C MP, CBC ####[place] [id number] [facility] GFR/1.73 sq M.predicted MDRD (S/P/Bld) [Vol rate/Area] 14.091 mL/min/{1.73_m2} Normal [facility] Comment on above: Performed By: #### C MP, CBC ####[place] [id number] [facility] Glucose [Mass/Vol] 75 mg/dL Normal 70-100 [facility] Comment on above: Result Comment: [place] Glucose Reference Range is dependent on time and content of last meal. Glucose of more than 200 mg/dL in a nonstressed, ambulatory subject supports the diagnosis of Diabetes Mellitus. ADA recommended reference range Performed By: #### C MP, CBC ####[address] Potassium [Moles/Vol] 3.8 mmol/L Normal 3.5-5.1 [facility] Comment on above: Performed By: #### C MP, CBC ####[address] Sodium [Moles/Vol] 130 mmol/L Low 136-145 [facility] Comment on above: Performed By: #### C MP, CBC ####[place] [id number] [facility] Urea nitrogen [Mass/Vol] 7 mg/dL Normal 7-25 [facility] Comment on above: Performed By: #### C MP, CBC ####[place] [id number] [facility] Erythrocyte distribution wid th [Ratio] by Automated countOrdered By: Tani Meehan on 09-24-2023 Erythrocyte distribution width (RBC) [Ratio] 17.2 % High 11.9-15.3 [facility] Comment on above: Performed By: #### C MP, CBC ####[place] [id number] [facility] Erythrocytes [#/volume] in B lood by Automated countOrdered By: Tani Meehan on 09-24-2023 RBC (Bld) [#/Vol] 2.59 10*6/uL Low 3.60-5.00 [facility] Comment on above: Performed By: #### C MP, CBC ####[facility] [facility] [place] [address] [facility] Glucose Poct Glucometerson 0 09-24-2023 Glucose [Mass/Vol] 99 mg/dL Normal [facility] Comment on above: Result Comment: [place] Glucose Reference Range is dependent on time and content of last meal. Glucose of more than 200 mg/dL in a nonstressed, ambulatory subject supports the diagnosis of Diabetes Mellitus.PERFORMED BY:[address] [place], [place] [phone] MEDICAL DIRECTORESTRADA GUZMAN M.D. Performed By: #### G LULS ####Point of Care testing, Glucose [Mass/Vol] 82 mg/dL Normal [facility] Comment on above: Result Comment: [facility][note 3] Glucose Reference Range is dependent on time and content of last meal. Glucose of more than 200 mg/dL in a nonstressed, ambulatory subject supports the diagnosis of Diabetes Mellitus.PERFORMED BY:[address] [place], [place] [phone] MEDICAL DIRECTORESTRADA GUZMAN M.D. Performed By: #### G LULS ####Point of Care testing, Commemt1 Glu2: Cleaned Meter Normal [facility] Comment on above: Result Comment: PERF ORMED BY:[address] [place], [place] [phone] MEDICAL FCO GUZMAN M.D. Performed By: #### G LULS ####Point of Care testing, Glucose [Mass/Vol] 93 mg/dL Normal [facility] Comment on above: Result Comment: [facility][note 3] Glucose Reference Range is dependent on time and content of last meal. Glucose of more than 200 mg/dL in a nonstressed, ambulatory subject supports the diagnosis of Diabetes Mellitus. Performed By: #### G LULS ####Point of Care testing, Commemt1 Glu2: Cleaned Meter Normal [facility] Comment on above: Result Comment: PERF ORMED BY:[address] [place], [place] [phone] MEDICAL DIRECTORESTRADA GUZMAN M.D. Performed By: #### G CATARINO ####Point of Care testing, Glucose [Mass/Vol] 74 mg/dL Normal [facility] Comment on above: Result Comment: [facility][note 3] Glucose Reference Range is dependent on time and content of last meal. Glucose of more than 200 mg/dL in a nonstressed, ambulatory subject supports the diagnosis of Diabetes Mellitus. Performed By: #### G LULS ####Point of Care testing, Hematocrit [Volume Fraction] of Blood by Automated countOrdered By: Tani Meehan on 09-24-2023 Hematocrit (Bld) [Volume fraction] 23.7 % Low 34.0-46.4 [facility] Comment on above: Performed By: #### C MP, CBC ####[facility] [id number] Hemoglobin [Mass/volume] in BloodOrdered By: Tani Meehan on 09-24-2023 Hemoglobin (Bld) [Mass/Vol] 7.8 g/dL Low 11.8-15.4 [facility] Comment on above: Performed By: #### C MP, CBC ####[place] [id number] [address] Leukocytes [#/volume] correc [place] for nucleated erythrocytes in Blood by Automated counOrdered By: Tanikingsley Meehan on 09-24-2023 WBC corrected for nucl RBC Auto (Bld) [#/Vol] 10.5 10*3/uL 3.8-11.6 [facility] Leukocytes [#/volume] in Blo od by Automated countOrdered By: Tanikingsley Meehan on 09-24-2023 WBC (Bld) [#/Vol] 10.5 10*3/uL Normal 3.8-11.6 [facility] Comment on above: Performed By: #### C MP, CBC ####[place] [address] [place] Lymphocytes [#/volume] in Bl ood by Automated countOrdered By: Tani Meehan on 09-24-2023 Lymphocytes (Bld) [#/Vol] 4.4 10*3/uL Normal 1.00-4.8 [facility] Comment on above: Performed By: #### C MP, CBC ####[address] Lymphocytes/100 leukocytes i n Blood by Automated countOrdered By: Tani Meehan on 09-24-2023 Lymphocytes/100 WBC (Bld) 41.7 % Normal . [facility] Comment on above: Performed By: #### C MP, CBC ####[address] MCH [Entitic mass] by Automa [place] countOrdered By: Tani Meehan on 09-24-2023 MCH (RBC) [Entitic mass] 30.2 pg Normal 24.7-34.3 [facility] Comment on above: Performed By: #### C MP, CBC ####[address] MCHC Auto (RBC) [Mass/Vol]Or dered By: Tani Meehan on 09-24-2023 MCHC (RBC) [Mass/Vol] 33.0 g/dL 32.0-35.0 [facility] MCV [Entitic volume] by Auto mated countOrdered By: Tani Meehan on 09-24-2023 MCV (RBC) [Entitic vol] 91.7 fL Normal 80-[address] [facility] Comment on above: Performed By: #### C MP, CBC ####[address] Neutrophils [#/volume] in Bl ood by Automated countOrdered By: Tani Meehan on 09-24-2023 Neutrophils (Bld) [#/Vol] 4.0 10*3/uL Normal 1.8-7.7 [facility] Comment on above: Performed By: #### C MP, CBC ####[address] Nucleated erythrocytes [Pres ence] in Blood by Automated countOrdered By: Tani Meehan on 09-24-2023 Nucleated RBC Auto Ql (Bld) 0.1 /100{WBC} 0-0.5 [facility] Platelet mean volume [Entiti c volume] in Blood by Automated countOrdered By: Tani Meehan on 09-24-2023 Platelet mean volume (Bld) [Entitic vol] 7.2 fL Normal 6.3-10.7 [facility] Comment on above: Performed By: #### C MP, CBC ####[address] Platelets [#/volume] in Bloo d by Automated countOrdered By: Tani Meehan on 09-24-2023 Platelets (Bld) [#/Vol] 367 10*3/uL Normal 150-450 [facility] Comment on above: Performed By: #### C MP, CBC ####[address] Protein [Mass/volume] in Ser um or PlasmaOrdered By: Tani Meehan on 09-24-2023 Protein [Mass/Vol] 4.6 g/dL Low 6.4-8.9 [facility] Comment on above: Performed By: #### C MP, CBC ####[address] Serum globulin measurement b y calculation (mass/volume)Ordered By: Tani Meehan on 09-24-2023 Globulin (S) [Mass/Vol] 2.5 g/dL Normal F [facility] Comment on above: Performed By: #### C MP, CBC ####[place] [id number] [facility] Serum or plasma albumin/glob ulin mass ratioOrdered By: Tani Meehan on 09-24-2023 Albumin/Globulin [Mass ratio] 0.8 {ratio} Normal [facility] Comment on above: Performed By: #### C MP, CBC ####[place] [id number] [facility] Complete Blood Count Auto Di ffon 09-23-2023 Basophils (Bld) [#/Vol] 0.2 10*3/uL Normal 0.0-0.2 [facility] Comment on above: Result Comment: PERF ORMED BY:[address] [place], [place] [phone] MEDICAL DIRECTORESTRADA GUZMAN M.D. Performed By: #### C BC, CMP ####[address] Basophils/100 WBC (Bld) 1.3 % Normal . T deshawn [facility] Comment on above: Performed By: #### C BC, CMP ####[address] Eosinophils (Bld) [#/Vol] 0.1 10*3/uL Normal 0.0-0.45 [facility] Comment on above: Performed By: #### C BC, CMP ####[address] Eosinophils/100 WBC (Bld) 0.6 % Normal . [facility] Comment on above: Performed By: #### C BC, CMP ####[address] Erythrocyte distribution width (RBC) [Ratio] 16.4 % High 11.9-15.3 [facility] Comment on above: Performed By: #### C BC, CMP ####[address] Hematocrit (Bld) [Volume fraction] 25.6 % Low 34.0-46.4 [facility] Comment on above: Performed By: #### C BC, CMP ####[address] Hemoglobin (Bld) [Mass/Vol] 8.3 g/dL Low 11.8-15.4 [facility] Comment on above: Performed By: #### C BC, CMP ####[address] Lymphocytes (Bld) [#/Vol] 2.6 10*3/uL Normal 1.00-4.8 [facility] Comment on above: Performed By: #### C BC, CMP ####[address] Lymphocytes/100 WBC (Bld) 20.6 % Normal . [facility] Comment on above: Performed By: #### C BC, CMP ####[address] MCH (RBC) [Entitic mass] 29.8 pg Normal 24.7-34.3 [facility] Comment on above: Performed By: #### C BC, CMP ####[address] MCV (RBC) [Entitic vol] 91.9 fL Normal 80-100 T [facility] Comment on above: Performed By: #### C BC, CMP ####[address] Mean Corpuscular HGB Conc 32.4 g/dL Normal 32.0-35.0 [facility] Comment on above: Performed By: #### C BC, CMP ####[address] Monocytes (Bld) [#/Vol] 1.5 10*3/uL High 0.0-0.8 [facility] Comment on above: Performed By: #### C BC, CMP ####[address] Monocytes/100 WBC (Bld) 12.2 % Normal . [facility] Comment on above: Performed By: #### C BC, CMP ####[address] Neutrophils (Bld) [#/Vol] 8.1 10*3/uL High 1.8-7.7 [facility] Comment on above: Performed By: #### C BC, CMP ####[address] Neutrophils/100 WBC (Bld) 65.3 % Normal . [facility] Comment on above: Performed By: #### C BC, CMP ####[address] NRBC% 0.1 /100{WBC} Normal 0-0.5 [facility] Comment on above: Performed By: #### C BC, CMP ####[address] Platelet mean volume (Bld) [Entitic vol] 7.5 fL Normal 6.3-10.7 [facility] Comment on above: Performed By: #### C BC, CMP ####[address] Platelets (Bld) [#/Vol] 428 10*3/uL Normal 150-450 [facility] Comment on above: Performed By: #### C BC, CMP ####[address] RBC (Bld) [#/Vol] 2.79 10*6/uL Low 3.60-5.00 [facility] Comment on above: Performed By: #### C BC, CMP ####[address] WBC (Bld) [#/Vol] 12.5 10*3/uL High 3.8-11.6 [facility] Comment on above: Performed By: #### C BC, CMP ####[address] Comprehensive Metabolic Pane german 09-23-2023 Albumin [Mass/Vol] 2.3 g/dL Low 3.5-5.7 [facility] Comment on above: Performed By: #### C BC, CMP ####[address] Albumin/Globulin [Mass ratio] 0.9 {ratio} Normal [facility] Comment on above: Performed By: #### C BC, CMP ####[place] [address] [facility] ALP [Catalytic activity/Vol] 260 U/L High 34-104 [facility] Comment on above: Performed By: #### C EFRAÍN, CMP ####[place] [id number] [facility] ALT [Catalytic activity/Vol] 16 U/L Normal 7-52 [facility] Comment on above: Performed By: #### C BC, CMP ####[address] Anion gap [Moles/Vol] 12.1 mmol/L Normal 6.0-15.0 Th e [facility] Comment on above: Performed By: #### C EFRAÍN, CMP ####[address] AST [Catalytic activity/Vol] 21 U/L Normal 13-39 [facility] Comment on above: Performed By: #### C EFRAÍN, CMP ####[address] Bilirubin [Mass/Vol] 0.9 mg/dL Normal 0.3-1.0 [facility] Comment on above: Performed By: #### C EFRAÍN, CMP ####[address] Calcium [Mass/Vol] 9.3 mg/dL Normal 8.6-10.3 [facility] Comment on above: Performed By: #### C EFRAÍN, CMP ####[address] Chloride [Moles/Vol] 93 mmol/L Low 98-107 [facility] Comment on above: Performed By: #### C BC, CMP ####[address] CO2 [Moles/Vol] 25.6 mmol/L Normal 21.0-31.0 [facility] Comment on above: Performed By: #### C BC, CMP ####[address] Creatinine [Mass/Vol] 6.66 mg/dL Significan t change up 0.60-1.20 [facility] Comment on above: Performed By: #### C BC, CMP ####[address] [address] [facility] Creatinine Clr Calc Pharmacy 9.70 Normal [facility] Comment on above: Result Comment: PERF ORMED BY:[address] [place], [place] [phone] MEDICAL DIRECTORESTRADA GUZMAN M.D. Performed By: #### C BC, CMP ####[address] [address] [facility] GFR/1.73 sq M.predicted MDRD (S/P/Bld) [Vol rate/Area] 7.505 mL/min/{1.73_m2} Normal [facility] Comment on above: Performed By: #### C BC, CMP ####[place] [id number] [facility] Globulin (S) [Mass/Vol] 2.5 g/dL Normal T he [facility] Comment on above: Performed By: #### C BC, CMP ####[address] [address] [facility] Glucose [Mass/Vol] 71 mg/dL Normal 70-100 [facility] Comment on above: Result Comment: [facility][note 3] Glucose Reference Range is dependent on time and content of last meal. Glucose of more than 200 mg/dL in a nonstressed, ambulatory subject supports the diagnosis of Diabetes Mellitus. ADA recommended reference range Performed By: #### C BC, CMP ####[address] [address] [facility] Potassium [Moles/Vol] 4.7 mmol/L Normal 3.5-5.1 [facility] Comment on above: Performed By: #### C BC, CMP ####[place] [id number] [facility] Protein [Mass/Vol] 4.8 g/dL Low 6.4-8.9 [facility] Comment on above: Performed By: #### C BC, CMP ####[address] [address] [facility] Sodium [Moles/Vol] 126 mmol/L Low 136-145 [facility] Comment on above: Performed By: #### C BC, CMP ####[place] [id number] [facility] Urea nitrogen [Mass/Vol] 15 mg/dL Normal 7-25 [facility] Comment on above: Performed By: #### C BC, CMP ####[place] [id number] [facility] Glucose Poct Glucometerson 0 09-23-2023 Commemt1 Glu2: Cleaned Meter Normal [facility] Comment on above: Result Comment: PERF ORMED BY:[address] [place], [place] [phone] MEDICAL DIRECTORESTRADA GUZMAN M.D. Performed By: #### G LULS ####Point of Care testing, Glucose [Mass/Vol] 106 mg/dL Normal [facility] Comment on above: Result Comment: [place] om Glucose Reference Range is dependent on time and content of last meal. Glucose of more than 200 mg/dL in a nonstressed, ambulatory subject supports the diagnosis of Diabetes Mellitus. Performed By: #### G LULS ####Point of Care testing, Glucose [Mass/Vol] 72 mg/dL Normal [facility] Comment on above: Result Comment: [place] om Glucose Reference Range is dependent on time and content of last meal. Glucose of more than 200 mg/dL in a nonstressed, ambulatory subject supports the diagnosis of Diabetes Mellitus.PERFORMED BY:[address] [place], [place] [phone] MEDICAL DIRECTORESTRADA GUZMAN M.D. Performed By: #### G LULS ####Point of Care testing, Glucose [Mass/Vol] 82 mg/dL Normal [facility] Comment on above: Result Comment: [place] om Glucose Reference Range is dependent on time and content of last meal. Glucose of more than 200 mg/dL in a nonstressed, ambulatory subject supports the diagnosis of Diabetes Mellitus.PERFORMED BY:[address], [place] [phone] MEDICAL DIRECTORESTRADA GUZMAN M.D. Performed By: #### G CATARINO ####Point of Care testing, Complete Blood Count Auto Di ffon 09-22-2023 Basophils (Bld) [#/Vol] 0.2 10*3/uL Normal 0.0-0.2 [facility] Comment on above: Result Comment: PERF ORMED BY:[place] [address] [address] [place], [place] [phone] MEDICAL DIRECTORESTRADA GUZMAN M.D. Performed By: #### C EFRAÍN, CMP ####[place] [id number] [facility] Basophils/100 WBC (Bld) 1.3 % Normal . T deshawn [facility] Comment on above: Performed By: #### C EFRAÍN, CMP ####[address] Eosinophils (Bld) [#/Vol] 0.1 10*3/uL Normal 0.0-0.45 [facility] Comment on above: Performed By: #### C EFRAÍN, CMP ####[address] Eosinophils/100 WBC (Bld) 0.9 % Normal . [facility] Comment on above: Performed By: #### C EFRAÍN, CMP ####[address] Erythrocyte distribution width (RBC) [Ratio] 16.5 % High 11.9-15.3 [facility] Comment on above: Performed By: #### C BC, CMP ####[address] Hematocrit (Bld) [Volume fraction] 26.2 % Low 34.0-46.4 [facility] Comment on above: Performed By: #### C BC, CMP ####[address] Hemoglobin (Bld) [Mass/Vol] 8.5 g/dL Low 11.8-15.4 [facility] Comment on above: Performed By: #### C EFRAÍN, CMP ####[address] Lymphocytes (Bld) [#/Vol] 4.5 10*3/uL Normal 1.00-4.8 [facility] Comment on above: Performed By: #### C EFRAÍN, CMP ####[address] Lymphocytes/100 WBC (Bld) 36.3 % Normal . [facility] Comment on above: Performed By: #### C EFRAÍN, CMP ####[address] MCH (RBC) [Entitic mass] 29.9 pg Normal 24.7-34.3 [facility] Comment on above: Performed By: #### C EFRAÍN, CMP ####[address] MCV (RBC) [Entitic vol] 91.8 fL Normal 80-100 T [facility] Comment on above: Performed By: #### C EFRAÍN, CMP ####[address] Mean Corpuscular HGB Conc 32.6 g/dL Normal 32.0-35.0 [facility] Comment on above: Performed By: #### C EFRAÍN, CMP ####[address] Monocytes (Bld) [#/Vol] 1.9 10*3/uL High 0.0-0.8 [facility] Comment on above: Performed By: #### C EFRAÍN, CMP ####[address] Monocytes/100 WBC (Bld) 14.9 % Normal . [facility] Comment on above: Performed By: #### C BC, CMP ####[address] Neutrophils (Bld) [#/Vol] 5.8 10*3/uL Normal 1.8-7.7 [facility] Comment on above: Performed By: #### C BC, CMP ####[address] Neutrophils/100 WBC (Bld) 46.6 % Normal . [facility] Comment on above: Performed By: #### C BC, CMP ####[address] NRBC% 0.1 /100{WBC} Normal 0-0.5 The [facility] Comment on above: Performed By: #### C EFRAÍN, CMP ####[address] Platelet mean volume (Bld) [Entitic vol] 7.8 fL Normal 6.3-10.7 [facility] Comment on above: Performed By: #### C EFRAÍN, CMP ####[address] Platelets (Bld) [#/Vol] 399 10*3/uL Normal 150-450 [facility] Comment on above: Performed By: #### C EFRAÍN, CMP ####[address] RBC (Bld) [#/Vol] 2.85 10*6/uL Low 3.60-5.00 The [facility] Comment on above: Performed By: #### C BC, CMP ####[address] WBC (Bld) [#/Vol] 12.4 10*3/uL High 3.8-11.6 [facility] Comment on above: Performed By: #### C BC, CMP ####[address] Comprehensive Metabolic Pane german 09-22-2023 Albumin [Mass/Vol] 2.2 g/dL Low 3.5-5.7 [facility] Comment on above: Performed By: #### C BC, CMP ####[address] Albumin/Globulin [Mass ratio] 0.9 {ratio} Normal The [facility] Comment on above: Performed By: #### C BC, CMP ####[address] ALP [Catalytic activity/Vol] 260 U/L High 34-104 [facility] Comment on above: Performed By: #### C EFRAÍN, CMP ####[address] ALT [Catalytic activity/Vol] 16 U/L Normal 7-52 The [facility] Comment on above: Performed By: #### C EFRAÍN, CMP ####[address] Anion gap [Moles/Vol] 10.6 mmol/L Normal 6.0-15.0 Th e [facility] Comment on above: Performed By: #### C EFRAÍN, CMP ####[address] AST [Catalytic activity/Vol] 22 U/L Normal 13-39 [facility] Comment on above: Performed By: #### C EFRAÍN, CMP ####[address] Bilirubin [Mass/Vol] 0.8 mg/dL Normal 0.3-1.0 [facility] [facility] Comment on above: Performed By: #### C EFRAÍN, CMP ####[address] Calcium [Mass/Vol] 9.0 mg/dL Normal 8.6-10.3 The [facility] Comment on above: Performed By: #### C BC, CMP ####[address] Chloride [Moles/Vol] 94 mmol/L Low 98-107 The [facility] Comment on above: Performed By: #### C BC, CMP ####[address] CO2 [Moles/Vol] 28.7 mmol/L Normal 21.0-31.0 The [facility] Comment on above: Performed By: #### C BC, CMP ####[place] [id number] [facility] Creatinine [Mass/Vol] 5.33 mg/dL Significan t change up 0.60-1.20 The [facility] Comment on above: Performed By: #### C BC, CMP ####[place] [id number] [facility] Creatinine Clr Calc Pharmacy 12.12 Normal The [facility] Comment on above: Result Comment: PERF ORMED BY:[address] [place], [place] [phone] MEDICAL DIRECTORESTRADA GUZMAN M.D. Performed By: #### C BC, CMP ####[place] [id number] [facility] GFR/1.73 sq M.predicted MDRD (S/P/Bld) [Vol rate/Area] 9.806 mL/min/{1.73_m2} Normal The [facility] Comment on above: Performed By: #### C BC, CMP ####[place] [id number] [facility] Globulin (S) [Mass/Vol] 2.5 g/dL Normal T he [facility] Comment on above: Performed By: #### C BC, CMP ####[address] Glucose [Mass/Vol] 64 mg/dL Low 70-100 The [facility] Comment on above: Result Comment: [place] Glucose Reference Range is dependent on time and content of last meal. Glucose of more than 200 mg/dL in a nonstressed, ambulatory subject supports the diagnosis of Diabetes Mellitus. ADA recommended reference range Performed By: #### C BC, CMP ####[address] Potassium [Moles/Vol] 4.3 mmol/L Normal 3.5-5.1 The [facility] Comment on above: Performed By: #### C BC, CMP ####[facility] [place] [address] [facility] Protein [Mass/Vol] 4.7 g/dL Low 6.4-8.9 The [facility] Comment on above: Performed By: #### C BC, CMP ####[place] [id number] [facility] Sodium [Moles/Vol] 129 mmol/L Low 136-145 The [facility] Comment on above: Performed By: #### C BC, CMP ####[place] [id number] [facility] Urea nitrogen [Mass/Vol] 11 mg/dL Normal 7-25 The [facility] Comment on above: Performed By: #### C BC, CMP ####[place] [id number] [facility] Glucose Poct Glucometerson 0 09-22-2023 Glucose [Mass/Vol] 92 mg/dL Normal The [facility] Comment on above: Result Comment: [facility][note 3] Glucose Reference Range is dependent on time and content of last meal. Glucose of more than 200 mg/dL in a nonstressed, ambulatory subject supports the diagnosis of Diabetes Mellitus.PERFORMED BY:[address] [place], [place] [phone] MEDICAL FCO GUZMAN M.D. Performed By: #### G LULS ####Point of Care testing, Glucose [Mass/Vol] 71 mg/dL Normal The [facility] Comment on above: Result Comment: [facility][note 3] Glucose Reference Range is dependent on time and content of last meal. Glucose of more than 200 mg/dL in a nonstressed, ambulatory subject supports the diagnosis of Diabetes Mellitus.PERFORMED BY:[address] [place], [place] [phone] MEDICAL FCO GUZMAN M.D. Performed By: #### G LULS ####Point of Care testing, Complete Blood Count Auto Di ffon 09-21-2023 Basophils (Bld) [#/Vol] 0.2 10*3/uL Normal 0.0-0.2 The [facility] Comment on above: Result Comment: PERF ORMED BY:[address] [place], [place] [phone] MEDICAL DIRECTORESTRADA GUZMAN M.D. Performed By: #### C MP, CBC ####[place] [id number] [facility] Basophils/100 WBC (Bld) 1.5 % Normal . T deshawn [facility] Comment on above: Performed By: #### C MP, CBC ####[address] Eosinophils (Bld) [#/Vol] 0.1 10*3/uL Normal 0.0-0.45 The [facility] Comment on above: Performed By: #### C MP, CBC ####[address] Eosinophils/100 WBC (Bld) 0.9 % Normal . The [facility] Comment on above: Performed By: #### C MP, CBC ####[address] Erythrocyte distribution width (RBC) [Ratio] 16.2 % High 11.9-15.3 The [facility] Comment on above: Performed By: #### C MP, CBC ####[place] [id number] [facility] Hematocrit (Bld) [Volume fraction] 25.7 % Low 34.0-46.4 The [facility] Comment on above: Performed By: #### C MP, CBC ####[address] Hemoglobin (Bld) [Mass/Vol] 8.3 g/dL Low 11.8-15.4 The [facility] Comment on above: Performed By: #### C MP, CBC ####[address] Lymphocytes (Bld) [#/Vol] 4.2 10*3/uL Normal 1.00-4.8 The [facility] Comment on above: Performed By: #### C MP, CBC ####[address] Lymphocytes/100 WBC (Bld) 34.4 % Normal . The [facility] Comment on above: Performed By: #### C MP, CBC ####[address] MCH (RBC) [Entitic mass] 29.5 pg Normal 24.7-34.3 The [facility] Comment on above: Performed By: #### C MP, CBC ####[address] MCV (RBC) [Entitic vol] 91.3 fL Normal 80-100 T [facility] Comment on above: Performed By: #### C MP, CBC ####[address] Mean Corpuscular HGB Conc 32.3 g/dL Normal 32.0-35.0 The [facility] Comment on above: Performed By: #### C MP, CBC ####[address] Monocytes (Bld) [#/Vol] 2.2 10*3/uL High 0.0-0.8 The [facility] Comment on above: Performed By: #### C MP, CBC ####[address] Monocytes/100 WBC (Bld) 18.5 % Normal . T [facility] Comment on above: Performed By: #### C MP, CBC ####[address] Neutrophils (Bld) [#/Vol] 5.4 10*3/uL Normal 1.8-7.7 The [facility] Comment on above: Performed By: #### C MP, CBC ####[address] Neutrophils/100 WBC (Bld) 44.7 % Normal . The [facility] Comment on above: Performed By: #### C MP, CBC ####[address] NRBC% 0.0 /100{WBC} Normal 0-0.5 The [facility] Comment on above: Performed By: #### C MP, CBC ####[address] Platelet mean volume (Bld) [Entitic vol] 8.1 fL Normal 6.3-10.7 The [facility] Comment on above: Performed By: #### C MP, CBC ####[address] Platelets (Bld) [#/Vol] 364 10*3/uL Normal 150-450 The [facility] Comment on above: Performed By: #### C MP, CBC ####[address] RBC (Bld) [#/Vol] 2.82 10*6/uL Low 3.60-5.00 The [facility] Comment on above: Performed By: #### C MP, CBC ####[address] WBC (Bld) [#/Vol] 12.1 10*3/uL High 3.8-11.6 The [facility] Comment on above: Performed By: #### C MP, CBC ####[address] Comprehensive Metabolic Pane german 09-21-2023 Albumin [Mass/Vol] 2.0 g/dL Low 3.5-5.7 The [facility] Comment on above: Performed By: #### C MP, CBC ####[place] [id number] [facility] Albumin/Globulin [Mass ratio] 1.0 {ratio} Normal The [facility] Comment on above: Performed By: #### C MP, CBC ####[address] ALP [Catalytic activity/Vol] 255 U/L High 34-104 The [facility] Comment on above: Performed By: #### C MP, CBC ####[place] [id number] [facility] ALT [Catalytic activity/Vol] 17 U/L Normal 7-52 The [facility] Comment on above: Performed By: #### C MP, CBC ####[place] [id number] [facility] Anion gap [Moles/Vol] 10.7 mmol/L Normal 6.0-15.0 Th e [facility] Comment on above: Performed By: #### C MP, CBC ####[place] [id number] [facility] AST [Catalytic activity/Vol] 23 U/L Normal 13-39 The [facility] Comment on above: Performed By: #### C MP, CBC ####[place] [id number] [facility] Bilirubin [Mass/Vol] 0.9 mg/dL Normal 0.3-1.0 The [facility] Comment on above: Performed By: #### C MP, CBC ####[place] [id number] [facility] Calcium [Mass/Vol] 8.2 mg/dL Low 8.6-10.3 The [facility] Comment on above: Performed By: #### C MP, CBC ####[place] [id number] [facility] Chloride [Moles/Vol] 94 mmol/L Low 98-107 The [facility] Comment on above: Performed By: #### C MP, CBC ####[place] [id number] [facility] CO2 [Moles/Vol] 29.7 mmol/L Normal 21.0-31.0 The [facility] Comment on above: Performed By: #### C MP, CBC ####[place] [id number] [facility] Creatinine [Mass/Vol] 3.97 mg/dL Significan t change up 0.60-1.20 The [facility] Comment on above: Performed By: #### C MP, CBC ####[place] [id number] [facility] Creatinine Clr Calc Pharmacy 16.27 Normal The [facility] Comment on above: Result Comment: PERF ORMED BY:[address] [place], [place] [phone] MEDICAL DIRECTORESTRADA GUZMAN M.D. Performed By: #### C MP, CBC ####[address] GFR/1.73 sq M.predicted MDRD (S/P/Bld) [Vol rate/Area] 13.963 mL/min/{1.73_m2} Normal The [facility] Comment on above: Performed By: #### C MP, CBC ####[address] Globulin (S) [Mass/Vol] 2.0 g/dL Normal T he [facility] Comment on above: Performed By: #### C MP, CBC ####[address] Glucose [Mass/Vol] 60 mg/dL Low 70-100 The [facility] Comment on above: Result Comment: [facility][note 3] Glucose Reference Range is dependent on time and content of last meal. Glucose of more than 200 mg/dL in a nonstressed, ambulatory subject supports the diagnosis of Diabetes Mellitus. ADA recommended reference range Performed By: #### C MP, CBC ####[address] Potassium [Moles/Vol] 4.4 mmol/L Normal 3.5-5.1 The [facility] Comment on above: Performed By: #### C MP, CBC ####[address] Protein [Mass/Vol] 4.0 g/dL Low 6.4-8.9 The [facility] Comment on above: Performed By: #### C MP, CBC ####[address] Sodium [Moles/Vol] 130 mmol/L Low 136-145 The [facility] Comment on above: Performed By: #### C MP, CBC ####[place] [id number] [facility] Urea nitrogen [Mass/Vol] 8 mg/dL Normal 7-25 The [facility] Comment on above: Performed By: #### C MP, CBC ####[place] [id number] [facility] Complete Blood Count Auto Di ffon 09-20-2023 Basophils (Bld) [#/Vol] 0.1 10*3/uL Normal 0.0-0.2 The [facility] Comment on above: Result Comment: PERF ORMED BY:[address] [place], [place] [phone] MEDICAL DIRECTORESTRADA GUZMAN M.D. Performed By: #### C MP, CBC ####[address] Basophils/100 WBC (Bld) 0.8 % Normal . T he [facility] Comment on above: Performed By: #### C MP, CBC ####[place] [id number] [facility] Eosinophils (Bld) [#/Vol] 0.1 10*3/uL Normal 0.0-0.45 The [facility] Comment on above: Performed By: #### C MP, CBC ####[place] [id number] [facility] Eosinophils/100 WBC (Bld) 0.5 % Normal . The [facility] Comment on above: Performed By: #### C MP, CBC ####[place] [id number] [facility] Erythrocyte distribution width (RBC) [Ratio] 16.4 % High 11.9-15.3 The [facility] Comment on above: Performed By: #### C MP, CBC ####[place] [id number] [facility] Hematocrit (Bld) [Volume fraction] 23.6 % Low 34.0-46.4 The [facility] Comment on above: Performed By: #### C MP, CBC ####[address] Hemoglobin (Bld) [Mass/Vol] 7.7 g/dL Low 11.8-15.4 The [facility] Comment on above: Performed By: #### C MP, CBC ####[address] Lymphocytes (Bld) [#/Vol] 2.7 10*3/uL Normal 1.00-4.8 The [facility] Comment on above: Performed By: #### C MP, CBC ####[address] Lymphocytes/100 WBC (Bld) 18.6 % Normal . The [facility] Comment on above: Performed By: #### C MP, CBC ####[address] MCH (RBC) [Entitic mass] 29.4 pg Normal 24.7-34.3 The [facility] Comment on above: Performed By: #### C MP, CBC ####[address] MCV (RBC) [Entitic vol] 90.0 fL Normal 80-100 T [facility] Comment on above: Performed By: #### C MP, CBC ####[address] Mean Corpuscular HGB Conc 32.7 g/dL Normal 32.0-35.0 The [facility] Comment on above: Performed By: #### C MP, CBC ####[address] Monocytes (Bld) [#/Vol] 2.0 10*3/uL High 0.0-0.8 The [facility] Comment on above: Performed By: #### C MP, CBC ####[address] Monocytes/100 WBC (Bld) 13.8 % Normal . T [facility] Comment on above: Performed By: #### C MP, CBC ####[address] [address] [facility] Neutrophils (Bld) [#/Vol] 9.6 10*3/uL High 1.8-7.7 The [facility] Comment on above: Performed By: #### C MP, CBC ####[place] [id number] [facility] Neutrophils/100 WBC (Bld) 66.3 % Normal . The [facility] Comment on above: Performed By: #### C MP, CBC ####[address] NRBC% 0.0 /100{WBC} Normal 0-0.5 The [facility] Comment on above: Performed By: #### C MP, CBC ####[address] Platelet mean volume (Bld) [Entitic vol] 8.2 fL Normal 6.3-10.7 The [facility] Comment on above: Performed By: #### C MP, CBC ####[place] [id number] [facility] Platelets (Bld) [#/Vol] 318 10*3/uL Normal 150-450 The [facility] Comment on above: Performed By: #### C MP, CBC ####[place] [id number] [facility] RBC (Bld) [#/Vol] 2.62 10*6/uL Low 3.60-5.00 The [facility] Comment on above: Performed By: #### C MP, CBC ####[place] [id number] [facility] WBC (Bld) [#/Vol] 14.5 10*3/uL High 3.8-11.6 The [facility] Comment on above: Performed By: #### C MP, CBC ####[place] [id number] [facility] Comprehensive Metabolic Pane german 09-20-2023 Albumin [Mass/Vol] 2.1 g/dL Low 3.5-5.7 The [facility] Comment on above: Performed By: #### C MP, CBC ####[place] [id number] [facility] Albumin/Globulin [Mass ratio] 0.9 {ratio} Normal The [facility] Comment on above: Performed By: #### C MP, CBC ####[address] [address] [facility] ALP [Catalytic activity/Vol] 241 U/L High 34-104 The [facility] Comment on above: Performed By: #### C MP, CBC ####[place] [id number] [facility] ALT [Catalytic activity/Vol] 19 U/L Normal 7-52 The [facility] Comment on above: Performed By: #### C MP, CBC ####[place] [id number] [facility] Anion gap [Moles/Vol] 10.1 mmol/L Normal 6.0-15.0 [facility] Comment on above: Performed By: #### C MP, CBC ####[place] [id number] [facility] AST [Catalytic activity/Vol] 25 U/L Normal 13-39 The [facility] Comment on above: Performed By: #### C MP, CBC ####[place] [id number] [facility] Bilirubin [Mass/Vol] 0.9 mg/dL Normal 0.3-1.0 The [facility] Comment on above: Performed By: #### C MP, CBC ####[address] [address] [facility] Calcium [Mass/Vol] 8.6 mg/dL Normal 8.6-10.3 The [facility] Comment on above: Performed By: #### C MP, CBC ####[place] [id number] [facility] Chloride [Moles/Vol] 93 mmol/L Low 98-107 The [facility] Comment on above: Performed By: #### C MP, CBC ####[address] [address] [facility] CO2 [Moles/Vol] 27.3 mmol/L Normal 21.0-31.0 The [facility] Comment on above: Performed By: #### C MP, CBC ####[place] [id number] [facility] Creatinine [Mass/Vol] 5.77 mg/dL Significan t change up 0.60-1.20 The [facility] Comment on above: Performed By: #### C MP, CBC ####[place] [id number] [facility] Creatinine Clr Calc Pharmacy 11.19 Normal The [facility] Comment on above: Result Comment: PERF ORMED BY:[address] [place], [place] [phone] MEDICAL DIRECTORESTRADA GUZMAN M.D. Performed By: #### C MP, CBC ####[place] [id number] [facility] GFR/1.73 sq M.predicted MDRD (S/P/Bld) [Vol rate/Area] 8.915 mL/min/{1.73_m2} Normal The [facility] Comment on above: Performed By: #### C MP, CBC ####[place] [id number] [facility] Globulin (S) [Mass/Vol] 2.3 g/dL Normal T he [facility] Comment on above: Performed By: #### C MP, CBC ####[place] [id number] [facility] Glucose [Mass/Vol] 80 mg/dL Normal 70-100 The [facility] Comment on above: Result Comment: [place] Glucose Reference Range is dependent on time and content of last meal. Glucose of more than 200 mg/dL in a nonstressed, ambulatory subject supports the diagnosis of Diabetes Mellitus. ADA recommended reference range Performed By: #### C MP, CBC ####[place] [id number] [facility] Potassium [Moles/Vol] 3.4 mmol/L Low 3.5-5.1 The [facility] Comment on above: Performed By: #### C MP, CBC ####[address] Protein [Mass/Vol] 4.4 g/dL Low 6.4-8.9 The [facility] Comment on above: Performed By: #### C MP, CBC ####[address] Sodium [Moles/Vol] 127 mmol/L Low 136-145 The [facility] Comment on above: Performed By: #### C MP, CBC ####[address] Urea nitrogen [Mass/Vol] 13 mg/dL Normal 7-25 The [facility] Comment on above: Performed By: #### C MP, CBC ####[address] Complete Blood Count Auto Di ffon 09-19-2023 Basophils (Bld) [#/Vol] 0.1 10*3/uL Normal 0.0-0.2 The [facility] Comment on above: Result Comment: PERF ORMED BY:[address] [place], [place] [phone] MEDICAL DIRECTORESTRADA GUZMAN M.D. Performed By: #### C MP, CBC ####[address] Basophils/100 WBC (Bld) 0.8 % Normal . T [facility] Comment on above: Performed By: #### C MP, CBC ####[address] Eosinophils (Bld) [#/Vol] 0.1 10*3/uL Normal 0.0-0.45 The [facility] Comment on above: Performed By: #### C MP, CBC ####[address] Eosinophils/100 WBC (Bld) 0.9 % Normal . The [facility] Comment on above: Performed By: #### C MP, CBC ####[address] Erythrocyte distribution width (RBC) [Ratio] 16.1 % High 11.9-15.3 The [facility] Comment on above: Performed By: #### C MP, CBC ####[address] Hematocrit (Bld) [Volume fraction] 26.0 % Low 34.0-46.4 The [facility] Comment on above: Performed By: #### C MP, CBC ####[address] Hemoglobin (Bld) [Mass/Vol] 8.6 g/dL Low 11.8-15.4 The [facility] Comment on above: Performed By: #### C MP, CBC ####[address] Lymphocytes (Bld) [#/Vol] 4.3 10*3/uL Normal 1.00-4.8 The [facility] Comment on above: Performed By: #### C MP, CBC ####[address] Lymphocytes/100 WBC (Bld) 32.4 % Normal . The [facility] Comment on above: Performed By: #### C MP, CBC ####[address] MCH (RBC) [Entitic mass] 29.6 pg Normal 24.7-34.3 The [facility] Comment on above: Performed By: #### C MP, CBC ####[address] MCV (RBC) [Entitic vol] 89.6 fL Normal 80-100 T he [facility] Comment on above: Performed By: #### C MP, CBC ####[address] Mean Corpuscular HGB Conc 33.0 g/dL Normal 32.0-35.0 The [facility] Comment on above: Performed By: #### C MP, CBC ####[address] Monocytes (Bld) [#/Vol] 2.6 10*3/uL High 0.0-0.8 The [facility] Comment on above: Performed By: #### C MP, CBC ####[address] Monocytes/100 WBC (Bld) 19.9 % Normal . T [facility] Comment on above: Performed By: #### C MP, CBC ####[address] Neutrophils (Bld) [#/Vol] 6.1 10*3/uL Normal 1.8-7.7 The [facility] Comment on above: Performed By: #### C MP, CBC ####[address] Neutrophils/100 WBC (Bld) 46.0 % Normal . The [facility] Comment on above: Performed By: #### C MP, CBC ####[address] NRBC% 0.8 /100{WBC} High 0-0.5 The [facility] Comment on above: Performed By: #### C MP, CBC ####[address] Platelet mean volume (Bld) [Entitic vol] 9.0 fL Normal 6.3-10.7 The [facility] Comment on above: Performed By: #### C MP, CBC ####[address] Platelets (Bld) [#/Vol] 296 10*3/uL Normal 150-450 The [facility] Comment on above: Performed By: #### C MP, CBC ####[address] RBC (Bld) [#/Vol] 2.90 10*6/uL Low 3.60-5.00 [facility] Physician Group Comment on above: Performed By: #### C MP, CBC ####[address] WBC (Bld) [#/Vol] 13.3 10*3/uL High 3.8-11.6 The [facility] Comment on above: Performed By: #### C MP, CBC ####[address] Comprehensive Metabolic Pane german 09-19-2023 Albumin [Mass/Vol] 2.3 g/dL Low 3.5-5.7 The [facility] Comment on above: Performed By: #### C MP, CBC ####[address] Albumin/Globulin [Mass ratio] 1.0 {ratio} Normal The [facility] Comment on above: Performed By: #### C MP, CBC ####[address] ALP [Catalytic activity/Vol] 226 U/L High 34-104 The [facility] Comment on above: Performed By: #### C MP, CBC ####[address] ALT [Catalytic activity/Vol] 20 U/L Normal 7-52 The [facility] Comment on above: Performed By: #### C MP, CBC ####[address] Anion gap [Moles/Vol] 9.0 mmol/L Normal 6.0-15.0 The [facility] Comment on above: Performed By: #### C MP, CBC ####[address] AST [Catalytic activity/Vol] 28 U/L Normal 13-39 The [facility] Comment on above: Performed By: #### C MP, CBC ####[address] Bilirubin [Mass/Vol] 1.0 mg/dL Normal 0.3-1.0 The [facility] Comment on above: Performed By: #### C MP, CBC ####[place] [id number] [facility] Calcium [Mass/Vol] 8.3 mg/dL Low 8.6-10.3 The [facility] Comment on above: Performed By: #### C MP, CBC ####[place] [id number] [facility] Chloride [Moles/Vol] 92 mmol/L Low 98-107 The [facility] Comment on above: Performed By: #### C MP, CBC ####[place] [id number] [facility] CO2 [Moles/Vol] 27.2 mmol/L Normal 21.0-31.0 The [facility] Comment on above: Performed By: #### C MP, CBC ####[address] Creatinine [Mass/Vol] 3.83 mg/dL Significan t change up 0.60-1.20 The [facility] Comment on above: Performed By: #### C MP, CBC ####[address] Creatinine Clr Calc Pharmacy 16.86 Normal The [facility] Comment on above: Result Comment: PERF ORMED BY:[address] [place], [place] [id number] MEDICAL FCO GUZMAN M.D. Performed By: #### C MP, CBC ####[place] [id number] [facility] GFR/1.73 sq M.predicted MDRD (S/P/Bld) [Vol rate/Area] 14.578 mL/min/{1.73_m2} Normal The [facility] Comment on above: Performed By: #### C MP, CBC ####[place] [id number] [facility] Globulin (S) [Mass/Vol] 2.4 g/dL Normal T he [facility] Comment on above: Performed By: #### C MP, CBC ####[address] [address] [facility] Glucose [Mass/Vol] 71 mg/dL Normal 70-100 The [facility] Comment on above: Result Comment: [facility][note 3] Glucose Reference Range is dependent on time and content of last meal. Glucose of more than 200 mg/dL in a nonstressed, ambulatory subject supports the diagnosis of Diabetes Mellitus. ADA recommended reference range Performed By: #### C MP, CBC ####[place] [id number] [facility] Potassium [Moles/Vol] 3.2 mmol/L Low 3.5-5.1 The [facility] Comment on above: Performed By: #### C MP, CBC ####[place] [id number] [facility] Protein [Mass/Vol] 4.7 g/dL Low 6.4-8.9 The [facility] Comment on above: Performed By: #### C MP, CBC ####[place] [id number] [facility] Sodium [Moles/Vol] 125 mmol/L Low 136-145 The [facility] Comment on above: Performed By: #### C MP, CBC ####[place] [id number] [facility] Urea nitrogen [Mass/Vol] 10 mg/dL Normal 7-25 The [facility] Comment on above: Performed By: #### C MP, CBC ####[place] [id number] [place] Glucose Poct Glucometerson 0 09-19-2023 Glucose [Mass/Vol] 100 mg/dL Normal The [facility] Comment on above: Result Comment: [facility][note 3] Glucose Reference Range is dependent on time and content of last meal. Glucose of more than 200 mg/dL in a nonstressed, ambulatory subject supports the diagnosis of Diabetes Mellitus.PERFORMED BY:[address] [place], [place] [phone] MEDICAL DIRECTORESTRADA GUZMAN M.D. Performed By: #### G LULS ####Point of Care testing, Basic Metabolic Panelon - Anion gap [Moles/Vol] 13.0 mmol/L Normal 6.0-15.0 Th e [facility] Comment on above: Performed By: #### B MP, CBC ####[place] [id number] [facility] Calcium [Mass/Vol] 8.4 mg/dL Low 8.6-10.3 The [facility] Comment on above: Performed By: #### B MP, CBC ####[place] [id number] [facility] Chloride [Moles/Vol] 90 mmol/L Low 98-107 The [facility] Comment on above: Performed By: #### B JOSE E, CBC ####[place] [id number] [facility] CO2 [Moles/Vol] 25.7 mmol/L Normal 21.0-31.0 The [facility] Comment on above: Performed By: #### B JOSE E, CBC ####[place] [id number] [facility] Creatinine [Mass/Vol] 5.49 mg/dL Significan t change up 0.60-1.20 The [facility] Comment on above: Performed By: #### B JOSE E, CBC ####[place] [id number] [facility] Creatinine Clr Calc Pharmacy 11.76 Normal The [facility] Comment on above: Result Comment: PERF ORMED BY:[address] [place], [place] [phone] MEDICAL FCO GUZMAN M.D. Performed By: #### B JOSE E, CBC ####[address] [address] [place] GFR/1.73 sq M.predicted MDRD (S/P/Bld) [Vol rate/Area] 9.464 mL/min/{1.73_m2} Normal The [facility] Comment on above: Performed By: #### B JOSE E, CBC ####[address] [place] [address] [facility] Glucose [Mass/Vol] 66 mg/dL Low 70-100 The [facility] Comment on above: Result Comment: [place] Glucose Reference Range is dependent on time and content of last meal. Glucose of more than 200 mg/dL in a nonstressed, ambulatory subject supports the diagnosis of Diabetes Mellitus. ADA recommended reference range Performed By: #### B MP, CBC ####[address] Potassium [Moles/Vol] 3.7 mmol/L Normal 3.5-5.1 The [facility] Comment on above: Performed By: #### B MP, CBC ####[address] Sodium [Moles/Vol] 125 mmol/L Low 136-145 The [facility] Comment on above: Performed By: #### B MP, CBC ####[address] Urea nitrogen [Mass/Vol] 19 mg/dL Normal 7-25 The [facility] Comment on above: Performed By: #### B MP, CBC ####[address] Complete Blood Count Auto Di ffon 09-18-2023 Basophils (Bld) [#/Vol] 0.1 10*3/uL Normal 0.0-0.2 The [facility] Comment on above: Result Comment: PERF ORMED BY:[address] [place], [place] [phone] MEDICAL DIRECTORESTRADA GUZMAN M.D. Performed By: #### B MP, CBC ####[place] [id number] [place] Basophils/100 WBC (Bld) 0.5 % Normal . T he [facility] Comment on above: Performed By: #### B MP, CBC ####[place] [id number] [facility] Eosinophils (Bld) [#/Vol] 0.1 10*3/uL Normal 0.0-0.45 The [facility] Comment on above: Performed By: #### B MP, CBC ####[address] Eosinophils/100 WBC (Bld) 0.5 % Normal . The [facility] Comment on above: Performed By: #### B MP, CBC ####[address] Erythrocyte distribution width (RBC) [Ratio] 15.8 % High 11.9-15.3 The [facility] Comment on above: Performed By: #### B MP, CBC ####[address] Hematocrit (Bld) [Volume fraction] 24.3 % Low 34.0-46.4 The [facility] Comment on above: Performed By: #### B MP, CBC ####[address] Hemoglobin (Bld) [Mass/Vol] 8.1 g/dL Low 11.8-15.4 The [facility] Comment on above: Performed By: #### B MP, CBC ####[address] Lymphocytes (Bld) [#/Vol] 3.0 10*3/uL Normal 1.00-4.8 The [facility] Comment on above: Performed By: #### B MP, CBC ####[address] Lymphocytes/100 WBC (Bld) 21.7 % Normal . The [facility] Comment on above: Performed By: #### B MP, CBC ####[address] MCH (RBC) [Entitic mass] 29.7 pg Normal 24.7-34.3 The [facility] Comment on above: Performed By: #### B MP, CBC ####[address] MCV (RBC) [Entitic vol] 89.5 fL Normal 80-100 T he [facility] Comment on above: Performed By: #### B MP, CBC ####[place] [id number] [facility] Mean Corpuscular HGB Conc 33.2 g/dL Normal 32.0-35.0 The [facility] Comment on above: Performed By: #### B MP, CBC ####[place] [id number] [facility] Monocytes (Bld) [#/Vol] 2.5 10*3/uL High 0.0-0.8 The [facility] Comment on above: Performed By: #### B MP, CBC ####[address] Monocytes/100 WBC (Bld) 18.0 % Normal . T [facility] Comment on above: Performed By: #### B MP, CBC ####[address] Neutrophils (Bld) [#/Vol] 8.3 10*3/uL High 1.8-7.7 The [facility] Comment on above: Performed By: #### B MP, CBC ####[place] [id number] [facility] Neutrophils/100 WBC (Bld) 59.3 % Normal . The [facility] Comment on above: Performed By: #### B MP, CBC ####[address] NRBC% 0.0 /100{WBC} Normal 0-0.5 The [facility] Comment on above: Performed By: #### B MP, CBC ####[place] [id number] [facility] Platelet mean volume (Bld) [Entitic vol] 8.6 fL Normal 6.3-10.7 The [facility] Comment on above: Performed By: #### B MP, CBC ####[place] [id number] [facility] Platelets (Bld) [#/Vol] 224 10*3/uL Normal 150-450 The [facility] Comment on above: Performed By: #### B MP, CBC ####[place] [id number] [facility] RBC (Bld) [#/Vol] 2.71 10*6/uL Low 3.60-5.00 The [facility] Comment on above: Performed By: #### B MP, CBC ####[place] [id number] [facility] WBC (Bld) [#/Vol] 14.0 10*3/uL High 3.8-11.6 The [facility] Comment on above: Performed By: #### B MP, CBC ####[place] [id number] [facility] Glucose Poct Glucometerson 0 09-18-2023 Glucose [Mass/Vol] 77 mg/dL Normal The [facility] Comment on above: Result Comment: [facility][note 3] Glucose Reference Range is dependent on time and content of last meal. Glucose of more than 200 mg/dL in a nonstressed, ambulatory subject supports the diagnosis of Diabetes Mellitus.PERFORMED BY:[address] [place], [place] [phone] MEDICAL DIRECTORESTRADA GUZMAN M.D. Performed By: #### G CATARINO ####Point of Care testing, Basic Metabolic Panelon 04-2 Anion gap [Moles/Vol] 9.7 mmol/L Normal 6.0-15.0 The [facility] Comment on above: Performed By: #### B MP, MG, CBC ####[place] [id number] [facility] Calcium [Mass/Vol] 8.3 mg/dL Low 8.6-10.3 The [facility] Comment on above: Performed By: #### B MP, MG, CBC ####[place] [id number] [facility] Chloride [Moles/Vol] 91 mmol/L Low 98-107 The [facility] Comment on above: Performed By: #### B MP, MG, CBC ####[address] [address] [place] CO2 [Moles/Vol] 28.2 mmol/L Normal 21.0-31.0 The [facility] Comment on above: Performed By: #### B MP, MG, CBC ####[address] Creatinine [Mass/Vol] 4.38 mg/dL Significan t change up 0.60-1.20 The [facility] Comment on above: Performed By: #### B MP, MG, CBC ####[address] Creatinine Clr Calc Pharmacy 14.74 Normal The [facility] Comment on above: Performed By: #### B MP, MG, CBC ####[address] GFR/1.73 sq M.predicted MDRD (S/P/Bld) [Vol rate/Area] 12.410 mL/min/{1.73_m2} Normal The [facility] Comment on above: Performed By: #### B MP, MG, CBC ####[address] Glucose [Mass/Vol] 73 mg/dL Normal 70-100 The [facility] Comment on above: Result Comment: [place] Glucose Reference Range is dependent on time and content of last meal. Glucose of more than 200 mg/dL in a nonstressed, ambulatory subject supports the diagnosis of Diabetes Mellitus. ADA recommended reference range Performed By: #### B MP, MG, CBC ####[address] Potassium [Moles/Vol] 3.9 mmol/L Normal 3.5-5.1 The [facility] Comment on above: Performed By: #### B MP, MG, CBC ####[address] Sodium [Moles/Vol] 125 mmol/L Low 136-145 The [facility] Comment on above: Performed By: #### B MP, MG, CBC ####[address] Urea nitrogen [Mass/Vol] 17 mg/dL Normal 7-25 The [facility] Comment on above: Performed By: #### B MP, MG, CBC ####[address] Complete Blood Count Auto Di ffon 09-17-2023 Basophils (Bld) [#/Vol] 0.1 10*3/uL Normal 0.0-0.2 The [facility] Comment on above: Result Comment: PERF ORMED BY:[address] [place], [place] [phone] MEDICAL DIRECTORESTRADA GUZMAN M.D. Performed By: #### B MP, MG, CBC ####[address] Basophils/100 WBC (Bld) 0.5 % Normal . T deshawn [facility] Comment on above: Performed By: #### B MP, MG, CBC ####[address] Eosinophils (Bld) [#/Vol] 0.1 10*3/uL Normal 0.0-0.45 The [facility] Comment on above: Performed By: #### B MP, MG, CBC ####[address] Eosinophils/100 WBC (Bld) 0.5 % Normal . The [facility] Comment on above: Performed By: #### B MP, MG, CBC ####[address] Erythrocyte distribution width (RBC) [Ratio] 15.7 % High 11.9-15.3 The [facility] Comment on above: Performed By: #### B MP, MG, CBC ####[address] Hematocrit (Bld) [Volume fraction] 24.5 % Low 34.0-46.4 The [facility] Comment on above: Performed By: #### B MP, MG, CBC ####[place] [address] Hemoglobin (Bld) [Mass/Vol] 8.1 g/dL Low 11.8-15.4 The [facility] Comment on above: Performed By: #### B MP, MG, CBC ####[address] Lymphocytes (Bld) [#/Vol] 2.5 10*3/uL Normal 1.00-4.8 The [facility] Comment on above: Performed By: #### B MP, MG, CBC ####[address] Lymphocytes/100 WBC (Bld) 18.7 % Normal . The [facility] Comment on above: Performed By: #### B MP, MG, CBC ####[address] MCH (RBC) [Entitic mass] 29.6 pg Normal 24.7-34.3 The [facility] Comment on above: Performed By: #### B MP, MG, CBC ####[address] MCV (RBC) [Entitic vol] 89.6 fL Normal 80-100 T [facility] Comment on above: Performed By: #### B MP, MG, CBC ####[address] Mean Corpuscular HGB Conc 33.0 g/dL Normal 32.0-35.0 The [facility] Comment on above: Performed By: #### B MP, MG, CBC ####[address] Monocytes (Bld) [#/Vol] 2.3 10*3/uL High 0.0-0.8 The [facility] Comment on above: Performed By: #### B MP, MG, CBC ####[address] Monocytes/100 WBC (Bld) 17.1 % Normal . T [facility] Comment on above: Performed By: #### B MP, MG, CBC ####[place] [id number] [facility] Neutrophils (Bld) [#/Vol] 8.5 10*3/uL High 1.8-7.7 The [facility] Comment on above: Performed By: #### B MP, MG, CBC ####[place] [id number] [facility] Neutrophils/100 WBC (Bld) 63.2 % Normal . The [facility] Comment on above: Performed By: #### B MP, MG, CBC ####[place] [id number] [facility] NRBC% 0.1 /100{WBC} Normal 0-0.5 The [facility] Comment on above: Performed By: #### B MP, MG, CBC ####[address] Platelet mean volume (Bld) [Entitic vol] 8.7 fL Normal 6.3-10.7 The [facility] Comment on above: Performed By: #### B MP, MG, CBC ####[place] [id number] [facility] Platelets (Bld) [#/Vol] 188 10*3/uL Normal 150-450 The [facility] Comment on above: Performed By: #### B MP, MG, CBC ####[place] [id number] [facility] RBC (Bld) [#/Vol] 2.74 10*6/uL Low 3.60-5.00 The [facility] Comment on above: Performed By: #### B MP, MG, CBC ####[place] [id number] [facility] WBC (Bld) [#/Vol] 13.5 10*3/uL High 3.8-11.6 The [facility] Comment on above: Performed By: #### B MP, MG, CBC ####[place] [id number] [facility] Glucose Poct Glucometerson 0 09-17-2023 Glucose [Mass/Vol] 83 mg/dL Normal The [facility] Comment on above: Result Comment: [place] Glucose Reference Range is dependent on time and content of last meal. Glucose of more than 200 mg/dL in a nonstressed, ambulatory subject supports the diagnosis of Diabetes Mellitus.PERFORMED BY:[place] [address] [place] [place], [place] [phone] MEDICAL FCO GUZMAN M.D. Performed By: #### G LULS ####Point of Care testing, Glucose [Mass/Vol] 85 mg/dL Normal The [facility] Comment on above: Result Comment: [facility][note 3] Glucose Reference Range is dependent on time and content of last meal. Glucose of more than 200 mg/dL in a nonstressed, ambulatory subject supports the diagnosis of Diabetes Mellitus.PERFORMED BY:[address] [place], [place] [phone] MEDICAL FCO GUZMAN M.D. Performed By: #### G LULS ####Point of Care testing, Glucose [Mass/Vol] 70 mg/dL Normal The [facility] Comment on above: Result Comment: [place] Glucose Reference Range is dependent on time and content of last meal. Glucose of more than 200 mg/dL in a nonstressed, ambulatory subject supports the diagnosis of Diabetes Mellitus.PERFORMED BY:[place] [address] [address] [place], [place] [phone] MEDICAL FCO GUZMAN M.D. Performed By: #### G LULS ####Point of Care testing, Commemt1 Glu2: Cleaned Meter Normal The [facility] Comment on above: Result Comment: PERF ORMED BY:[place] [address] [address] [place], [place] [phone] ADELAIDA GUZMAN M.D. Performed By: #### G LULS ####Point of Care testing, Glucose [Mass/Vol] 67 mg/dL Normal The [facility] Comment on above: Result Comment: [place] Glucose Reference Range is dependent on time and content of last meal. Glucose of more than 200 mg/dL in a nonstressed, ambulatory subject supports the diagnosis of Diabetes Mellitus. Performed By: #### G LULS ####Point of Care testing, MR head/brain wo conon 09-16 MR head/brain wo con Normal The [facility] Magnesium [Mass/volume] in S jie or PlasmaOrdered By: Tani Meehan on 09-17-2023 Magnesium [Mass/Vol] 1.3 mg/dL Low 1.9-2.7 [facility] Comment on above: Result Comment: PERF ORMED BY:[id number] [place], [place] [phone] MEDICAL DIRECTORESTRADA GUZMAN M.D. Performed By: #### B MP, MG, CBC ####[facility] [id number] [place] [address] [facility] Amphetamine Screen Ql (U)Ord ered By: Pete Spaulding on 09-16-2023 Amphetamines Ql (U) Negative Negative [facility] Barbiturates [Presence] in U rine by Screen methodOrdered By: Pete Spaulding on 09-16-2023 Barbiturates Screen Ql (U) Negative Negative [facility] Benzodiazepines Screen Ql (U )Ordered By: Pete Spaulding on 09-16-2023 Benzodiazepines Ql (U) Negative Negative [facility] Benzoylecgonine [Presence] i n Urine by Screen methodOrdered By: Pete Spaulding on 09-16-2023 Benzoylecgonine Screen Ql (U) Negative Negative [facility] Cannabinoids [Presence] in U rine by Screen methodOrdered By: Pete Spaulding on 09-16-2023 Cannabinoids Screen Ql (U) Positive High Negative [facility] Comment on above: These are unconfirme d results and should not be used for legal purposes. Drug Cut-Off Concentration: AMPH 1000 ng/mL KRISTINA 200 ng/mL VIDAL 200 ng/mL COCM 300 ng/mL OP 300 ng/mL PCP 25 ng/mL THC 20 ng/mL Complete Blood Count Auto Di ffon 09-16-2023 Basophils (Bld) [#/Vol] 0.1 10*3/uL Normal 0.0-0.2 [facility] Comment on above: Result Comment: PERF ORMED BY: [facility] [address] [place] [address] PATHOLOGIST QI SPECIALIST ESTRADA GUZMAN M.D. Performed By: #### C BC, CMP ####[address] Basophils/100 WBC (Bld) 0.4 % Normal . T deshawn [facility] Comment on above: Performed By: #### C BC, CMP ####[address] Eosinophils (Bld) [#/Vol] 0.2 10*3/uL Normal 0.0-0.45 [facility] Comment on above: Performed By: #### C BC, CMP ####[address] Eosinophils/100 WBC (Bld) 1.0 % Normal . The [facility] Comment on above: Performed By: #### C BC, CMP ####[address] Erythrocyte distribution width (RBC) [Ratio] 16.0 % High 11.9-15.3 The [facility] Comment on above: Performed By: #### C BC, CMP ####[address] Hematocrit (Bld) [Volume fraction] 22.5 % Low 34.0-46.4 The [facility] Comment on above: Performed By: #### C BC, CMP ####[address] Hemoglobin (Bld) [Mass/Vol] 7.3 g/dL Low 11.8-15.4 [facility] Comment on above: Performed By: #### C BC, CMP ####[address] Lymphocytes (Bld) [#/Vol] 2.6 10*3/uL Normal 1.00-4.8 [facility] Comment on above: Performed By: #### C BC, CMP ####[address] Lymphocytes/100 WBC (Bld) 16.4 % Normal . [facility] Comment on above: Performed By: #### C BC, CMP ####[place] [id number] [facility] MCH (RBC) [Entitic mass] 29.5 pg Normal 24.7-34.3 [facility] Comment on above: Performed By: #### C BC, CMP ####[place] [id number] [facility] MCV (RBC) [Entitic vol] 90.7 fL Normal 80-100 T [facility] Comment on above: Performed By: #### C BC, CMP ####[address] Mean Corpuscular HGB Conc 32.5 g/dL Normal 32.0-35.0 [facility] Comment on above: Performed By: #### C EFRAÍN, CMP ####[address] Monocytes (Bld) [#/Vol] 1.9 10*3/uL High 0.0-0.8 [facility] Comment on above: Performed By: #### C BC, CMP ####[place] [id number] [facility] Monocytes/100 WBC (Bld) 11.7 % Normal . [facility] Comment on above: Performed By: #### C BC, CMP ####[place] [id number] [facility] Neutrophils (Bld) [#/Vol] 11.3 10*3/uL High 1.8-7.7 [facility] Comment on above: Performed By: #### C BC, CMP ####[place] [id number] [facility] Neutrophils/100 WBC (Bld) 70.5 % Normal . [facility] Comment on above: Performed By: #### C BC, CMP ####[place] [id number] [facility] NRBC% 0.0 /100{WBC} Normal 0-0.5 [facility] Comment on above: Performed By: #### C BC, CMP ####[place] [id number] [facility] Platelet mean volume (Bld) [Entitic vol] 8.8 fL Normal 6.3-10.7 [facility] Comment on above: Performed By: #### C BC, CMP ####[place] [id number] [facility] Platelets (Bld) [#/Vol] 147 10*3/uL Low 150-450 [facility] Comment on above: Performed By: #### C BC, CMP ####[address] RBC (Bld) [#/Vol] 2.48 10*6/uL Low 3.60-5.00 [facility] Comment on above: Performed By: #### C BC, CMP ####[address] WBC (Bld) [#/Vol] 16.0 10*3/uL High 3.8-11.6 [facility] Comment on above: Performed By: #### C BC, CMP ####[place] [id number] [facility] Comprehensive Metabolic Pane german 09-16-2023 Albumin [Mass/Vol] 2.2 g/dL Low 3.5-5.7 [facility] Comment on above: Performed By: #### C BC, CMP ####[place] [id number] [facility] Albumin/Globulin [Mass ratio] 0.9 {ratio} Normal [facility] Comment on above: Performed By: #### C BC, CMP ####[place] [id number] [facility] ALP [Catalytic activity/Vol] 235 U/L High 34-104 [facility] Comment on above: Performed By: #### C BC, CMP ####[address] [address] [facility] ALT [Catalytic activity/Vol] 30 U/L Normal 7-52 [facility] Comment on above: Performed By: #### C BC, CMP ####[address] [address] [facility] Anion gap [Moles/Vol] 12.2 mmol/L Normal 6.0-15.0 Th e [facility] Comment on above: Performed By: #### C BC, CMP ####[address] [address] [facility] AST [Catalytic activity/Vol] 46 U/L High 13-39 [facility] Comment on above: Performed By: #### C BC, CMP ####[address] [address] [facility] Bilirubin [Mass/Vol] 0.9 mg/dL Normal 0.3-1.0 [facility] Comment on above: Performed By: #### C BC, CMP ####[address] [address] [facility] Calcium [Mass/Vol] 8.4 mg/dL Low 8.6-10.3 [facility] Comment on above: Performed By: #### C BC, CMP ####[address] [address] [facility] Chloride [Moles/Vol] 92 mmol/L Low 98-107 [facility] Comment on above: Performed By: #### C BC, CMP ####[address] [address] [facility] CO2 [Moles/Vol] 24.9 mmol/L Normal 21.0-31.0 [facility] Comment on above: Performed By: #### C BC, CMP ####[place] [id number] [facility] Creatinine [Mass/Vol] 6.51 mg/dL Significan t change up 0.60-1.20 [facility] Comment on above: Performed By: #### C BC, CMP ####[address] Creatinine Clr Calc Pharmacy 9.92 Normal [facility] Comment on above: Result Comment: PERF ORMED BY: [facility] [place] [address] PATHOLOGIST QI SPECIALIST ESTRADA GUZMAN M.D. Performed By: #### C BC, CMP ####[address] GFR/1.73 sq M.predicted MDRD (S/P/Bld) [Vol rate/Area] 7.714 mL/min/{1.73_m2} Normal [facility] Comment on above: Performed By: #### C BC, CMP ####[address] Globulin (S) [Mass/Vol] 2.5 g/dL Normal T he [facility] Comment on above: Performed By: #### C BC, CMP ####[address] Glucose [Mass/Vol] 72 mg/dL Normal 70-100 [facility] Comment on above: Result Comment: [facility][note 3] Glucose Reference Range is dependent on time and content of last meal. Glucose of more than 200 mg/dL in a nonstressed, ambulatory subject supports the diagnosis of Diabetes Mellitus. ADA recommended reference range Performed By: #### C BC, CMP ####[address] Potassium [Moles/Vol] 4.1 mmol/L Normal 3.5-5.1 [facility] Comment on above: Performed By: #### C BC, CMP ####[address] Protein [Mass/Vol] 4.7 g/dL Low 6.4-8.9 [facility] Comment on above: Performed By: #### C BC, CMP ####[address] Sodium [Moles/Vol] 125 mmol/L Low 136-145 [facility] Comment on above: Performed By: #### C BC, CMP ####[address] Urea nitrogen [Mass/Vol] 28 mg/dL High 7-25 [facility] Comment on above: Performed By: #### C BC, CMP ####[place] [id number] [facility] Drug Screen,Urineon 09-16-19 24 Amphetamine Screen,Urine Negative Normal Negative [facility] Comment on above: Performed By: #### U HCG, URDS ####[address] Barbiturate Screen,Urine Negative Normal Negative [facility] Comment on above: Performed By: #### U HCG, URDS ####[address] Benzodiazepines Screen,Urine Negative Normal Negative [facility] Comment on above: Performed By: #### U HCG, URDS ####[place] [id number] [facility] Cannabinoid Screen,Urine Positive High Negative [facility] Comment on above: Result Comment: Thes e are unconfirmed results and should not be used for legal purposes. Drug Cut-Off Concentration: AMPH 1000 ng/mL KRISTINA 200 ng/mL VIDAL 200 ng/mL COCM 300 ng/mL OP 300 ng/mL PCP 25 ng/mL THC 20 ng/mL PERFORMED BY: [facility] [address] [address] PATHOLOGIST QI SPECIALIST ESTRADA GUZMAN M.D. Performed By: #### U HCG, URDS ####[place] [id number] [facility] Cocaine Screen,Urine Negative Normal Negative [facility] Comment on above: Performed By: #### U HCG, URDS ####[place] [id number] [facility] Opiate Screen,Urine Positive High Negative [facility] Comment on above: Performed By: #### U HCG, URDS ####[address] [place] [address] [place] Phencyclidine Screen,Urine Negative Normal Negative [facility] Comment on above: Performed By: #### U HCG, URDS ####[address] Glucose Poct Glucometerson 0 09-16-2023 Glucose [Mass/Vol] 76 mg/dL Normal [facility] Comment on above: Result Comment: [place] Glucose Reference Range is dependent on time and content of last meal. Glucose of more than 200 mg/dL in a nonstressed, ambulatory subject supports the diagnosis of Diabetes Mellitus. PERFORMED BY: [place] [address] PATHOLOGIST QI SPECIALIST ESTRADA GUZMAN M.D. Performed By: #### H EPATIC, CK, PT, HS TROP, BMP, DIFF CBC, BNP, PTT #### [address] Commemt1 Glu2: Cleaned Meter Normal [facility] Comment on above: Result Comment: PERF ORMED BY: [place] [address] PATHOLOGIST QI SPECIALIST ESTRADA GUZMAN M.D. Performed By: #### G LULS ####Point of Care testing, Glucose [Mass/Vol] 77 mg/dL Normal [facility] Comment on above: Result Comment: [place] Glucose Reference Range is dependent on time and content of last meal. Glucose of more than 200 mg/dL in a nonstressed, ambulatory subject supports the diagnosis of Diabetes Mellitus. Performed By: #### G LULS ####Point of Care testing, Commemt1 Glu2: Cleaned Meter Normal [facility] Comment on above: Result Comment: PERF ORMED BY: [place] [address] PATHOLOGIST QI SPECIALIST ESTRADA GUZMAN M.D. Performed By: #### G LULS ####Point of Care testing, Glucose [Mass/Vol] 86 mg/dL Normal [facility] Comment on above: Result Comment: [place] om Glucose Reference Range is dependent on time and content of last meal. Glucose of more than 200 mg/dL in a nonstressed, ambulatory subject supports the diagnosis of Diabetes Mellitus. Performed By: #### G LULS ####Point of Care testing, Commemt1 Glu2: Cleaned Meter Normal [facility] Comment on above: Result Comment: PERF ORMED BY: [place] [address] PATHOLOGIST QI SPECIALIST ESTRADA GUZMAN M.D. Performed By: #### G LULS ####Point of Care testing, Glucose [Mass/Vol] 87 mg/dL Normal [facility] Comment on above: Result Comment: [place] om Glucose Reference Range is dependent on time and content of last meal. Glucose of more than 200 mg/dL in a nonstressed, ambulatory subject supports the diagnosis of Diabetes Mellitus. Performed By: #### G LULS ####Point of Care testing, HCG ( test) [place].rapi d Ql (U)Ordered By: Pete Spaulding on 09-16-2023 HCG ( test) Ql (U) Negative [facility] HCG,Urineon 09-16-2023 Beta HCG ( test) Ql (U) Negative Normal [facility] Comment on above: Result Comment: PERF ORMED BY: [place] [id number] PATHOLOGIST QI SPECIALIST ESTRADA GUZMAN M.D. Performed By: #### U HCG, URDS ####[facility] [address] [place] [address] [facility] LeukoReduced RBCon 4 LeukoReduced RBC TRANSFUSED 09/17/23 0004 Normal [facility] Opiates [Presence] in Urine by Screen methodOrdered By: ePte Spaulding on 09-16-2023 Opiates Screen Ql (U) Positive High Negative [facility] Phencyclidine Screen Ql (U)O rdered By: Pete Spaulding on 09-16-2023 Phencyclidine Ql (U) Negative Negative [facility] Type and Screenon 09-16-2023 ABO and Rh group Nom (Bld) Blood group O Rh(D) positive Normal [facility] Comment on above: Order Comment: Comme nt two units on hold for OR Transfuse now? N Transfuse now? Y Number of units to transfuse now? 1 Result Comment: PERF ORMED BY: [address] [address] PATHOLOGIST QI SPECIALIST ESTRADA GUZMAN M.D. XR chest 1V portableon 09-15 XR chest 1V portable [facility] Main [address] [address] XRay Report Signed Patient: Winnie Cai MR#: [id number] 71 : 1985 Acct:[id number] Age/Sex: 38 / F ADM Date: 09/08/23 Loc: Room: [address] [place] [address] Type: ADM IN Attending Dr: Tani Meehan MD Copies to: MD Arvind [place] MD Ordering Provider: Arvind Sun MD Date of Service: 09/16/23 XR/XR chest 1V portable: POST DIALYSIS CATH XR chest 1V portable 09/16/2023 8:34 AM SIGNS AND SYMPTOMS: Status post dialysis catheter placement PROTOCOL: Frontal radiograph of the chest COMPARISON: 09/08/2023 FINDINGS: The trachea is midline. There is a dual lumen tunneled right IJ catheter with the tip at the distal superior vena cava in satisfactory position. There is no pneumothorax. The heart and mediastinal structures are within normal limits. The lung parenchyma is clear. There is redemonstration of a fracture of the right humeral head. XR/XR chest 1V portable IMPRESSION: There is a dual lumen tunneled right IJ catheter with the tip at the distal superior vena cava in satisfactory position. There is no pneumothorax. Impression dictated by: Sp Germain M.D.09/16/2023 8:42 AM Dictation Location: [place] [address] Transcribed By: [facility] 09/16/23 0842 Dictated By: Sp Germain II, MD 09/16/2341 Signed By: 09/16/23 08 Normal [facility] Basic Metabolic Panelon 08-25 Anion gap [Moles/Vol] 10.4 mmol/L Normal 6.0-15.0 Th e [facility] Comment on above: Performed By: #### C BCNO #### [address] Calcium [Mass/Vol] 8.1 mg/dL Low 8.6-10.3 [facility] Comment on above: Performed By: #### C BCNO #### [address] Chloride [Moles/Vol] 93 mmol/L Low 98-107 [facility] Comment on above: Performed By: #### C BCNO #### [address] CO2 [Moles/Vol] 26.9 mmol/L Normal 21.0-31.0 [facility] Comment on above: Performed By: #### C BCNO #### [address] Creatinine [Mass/Vol] 5.31 mg/dL Significan t change up 0.60-1.20 [facility] Comment on above: Performed By: #### C BCNO #### [place] [address] [place] Creatinine Clr Calc Pharmacy 12.16 Normal [facility] Comment on above: Result Comment: PERF ORMED BY: [place] [address] PATHOLOGIST QI SPECIALIST ESTRADA GUZMAN M.D. Performed By: #### C BCNO #### [place] [address] [place] GFR/1.73 sq M.predicted MDRD (S/P/Bld) [Vol rate/Area] 9.850 mL/min/{1.73_m2} Normal [facility] Comment on above: Performed By: #### C BCNO #### [address] Glucose [Mass/Vol] 84 mg/dL Normal 70-100 [facility] Comment on above: Result Comment: [place] om Glucose Reference Range is dependent on time and content of last meal. Glucose of more than 200 mg/dL in a nonstressed, ambulatory subject supports the diagnosis of Diabetes Mellitus. ADA recommended reference range Performed By: #### C BCNO #### [address] Potassium [Moles/Vol] 3.3 mmol/L Low 3.5-5.1 [facility] Comment on above: Performed By: #### C BCNO #### [address] Sodium [Moles/Vol] 127 mmol/L Low 136-145 [facility] Comment on above: Performed By: #### C BCNO #### [address] Urea nitrogen [Mass/Vol] 21 mg/dL Normal 7-25 [facility] Comment on above: Performed By: #### C BCNO #### [address] Glucose Poct Glucometerson 0 - Glucose [Mass/Vol] 85 mg/dL Normal [facility] Comment on above: Result Comment: [facility][note 3] Glucose Reference Range is dependent on time and content of last meal. Glucose of more than 200 mg/dL in a nonstressed, ambulatory subject supports the diagnosis of Diabetes Mellitus. PERFORMED BY: [place] [address] PATHOLOGIST QI SPECIALIST ESTRADA GUZMAN M.D. Performed By: #### G LULS #### Point of Care testing , Glucose [Mass/Vol] 79 mg/dL Normal [facility] Comment on above: Result Comment: [facility][note 3] Glucose Reference Range is dependent on time and content of last meal. Glucose of more than 200 mg/dL in a nonstressed, ambulatory subject supports the diagnosis of Diabetes Mellitus. PERFORMED BY: [place] [address] PATHOLOGIST QI SPECIALIST ESTRADA GUZMAN M.D. Performed By: #### G LULS ####Point of Care testing, Hemogram CBC Without Diffon 09-15-2023 Erythrocyte distribution width (RBC) [Ratio] 15.8 % High 11.9-15.3 [facility] Comment on above: Performed By: #### C BCNO #### [address] Hematocrit (Bld) [Volume fraction] 23.2 % Low 34.0-46.4 [facility] Comment on above: Performed By: #### C BCNO #### [address] Hemoglobin (Bld) [Mass/Vol] 7.5 g/dL Low 11.8-15.4 [facility] Comment on above: Performed By: #### C BCNO #### [address] MCH (RBC) [Entitic mass] 29.6 pg Normal 24.7-34.3 [facility] Comment on above: Performed By: #### C BCNO #### [address] MCV (RBC) [Entitic vol] 90.9 fL Normal 80-100 T he [facility] Comment on above: Performed By: #### C BCNO #### [address] Mean Corpuscular HGB Conc 32.6 g/dL Normal 32.0-35.0 [facility] Comment on above: Performed By: #### C BCNO #### [address] Platelet mean volume (Bld) [Entitic vol] 8.5 fL Normal 6.3-10.7 [facility] Comment on above: Result Comment: PERF ORMED BY: [place] [address] PATHOLOGIST QI SPECIALIST ESTRADA GUZMAN M.D. Performed By: #### C BCNO #### [address] Platelets (Bld) [#/Vol] 134 10*3/uL Low 150-450 [facility] Comment on above: Performed By: #### C BCNO #### [address] RBC (Bld) [#/Vol] 2.55 10*6/uL Low 3.60-5.00 [facility] Comment on above: Performed By: #### C BCNO #### [address] WBC (Bld) [#/Vol] 13.3 10*3/uL High 3.8-11.6 [facility] Comment on above: Performed By: #### C BCNO #### [address] Basic Metabolic Panelon 04-2 Anion gap [Moles/Vol] Not performed Normal 6.0-15.0 [facility] Comment on above: Performed By: #### B MP #### [address] Calcium [Mass/Vol] 7.7 mg/dL Low 8.6-10.3 [facility] Comment on above: Performed By: #### B MP #### [address] Chloride [Moles/Vol] 93 mmol/L Low 98-107 [facility] Comment on above: Performed By: #### B MP #### [address] CO2 [Moles/Vol] 27.0 mmol/L Normal 21.0-31.0 [facility] Comment on above: Performed By: #### B MP #### [address] Creatinine [Mass/Vol] 3.73 mg/dL Significan t change up 0.60-1.20 [facility] Comment on above: Performed By: #### B MP #### [address] Creatinine Clr Calc Pharmacy 17.31 Normal [facility] Comment on above: Result Comment: PERF ORMED BY: [place] [address] PATHOLOGIST QI SPECIALIST ESTRADA GUZMAN M.D. Performed By: #### B MP #### [address] GFR/1.73 sq M.predicted MDRD (S/P/Bld) [Vol rate/Area] 15.049 mL/min/{1.73_m2} Normal [facility] Comment on above: Performed By: #### B MP #### [address] Glucose [Mass/Vol] 80 mg/dL Normal 70-100 [facility] Comment on above: Result Comment: [place] Glucose Reference Range is dependent on time and content of last meal. Glucose of more than 200 mg/dL in a nonstressed, ambulatory subject supports the diagnosis of Diabetes Mellitus. ADA recommended reference range Performed By: #### B MP #### [address] Potassium Normal 3.5-5.1 [facility] Comment on above: Result Comment: Spec imen hemolyzed, redraw requested Performed By: #### B MP #### [address] Sodium [Moles/Vol] 128 mmol/L Low 136-145 [facility] Comment on above: Performed By: #### B MP #### [address] Urea nitrogen [Mass/Vol] 14 mg/dL Normal 7-25 [facility] Comment on above: Performed By: #### B MP #### [address] Hemogram CBC Without Diffon 09-14-2023 Erythrocyte distribution width (RBC) [Ratio] 15.5 % High 11.9-15.3 [facility] Comment on above: Performed By: #### A MM #### [address] Hematocrit (Bld) [Volume fraction] 21.5 % Low 34.0-46.4 [facility] Comment on above: Performed By: #### A MM #### [address] Hemoglobin (Bld) [Mass/Vol] 7.1 g/dL Low 11.8-15.4 [facility] Comment on above: Performed By: #### A MM #### [address] MCH (RBC) [Entitic mass] 30.0 pg Normal 24.7-34.3 [facility] Comment on above: Performed By: #### A MM #### [address] MCV (RBC) [Entitic vol] 90.9 fL Normal 80-100 T he [facility] Comment on above: Performed By: #### A MM #### [address] Mean Corpuscular HGB Conc 33.1 g/dL Normal 32.0-35.0 [facility] Comment on above: Performed By: #### A MM #### [address] Platelet mean volume (Bld) [Entitic vol] 9.7 fL Normal 6.3-10.7 [facility] Comment on above: Result Comment: PERF ORMED BY: [place] [address] PATHOLOGIST QI SPECIALIST ESTRADA GUZMAN M.D. Performed By: #### A MM #### [address] Platelets (Bld) [#/Vol] 119 10*3/uL Low 150-450 [facility] Comment on above: Performed By: #### A MM #### [address] RBC (Bld) [#/Vol] 2.37 10*6/uL Low 3.60-5.00 [facility] Comment on above: Performed By: #### A MM #### [address] WBC (Bld) [#/Vol] 14.1 10*3/uL High 3.8-11.6 [facility] Comment on above: Performed By: #### A MM #### [address] Redraw Potassiumon Potassium [Moles/Vol] 2.9 mmol/L Off scale low 3.5-5.1 [facility] Comment on above: Result Comment: Crit ical value result called at 0814 on 09/14/23 --- 09/14/23 0814 --- Redraw K previously reported as: 2.9 *L mmol/L PERFORMED BY: [place] [address] PATHOLOGIST QI SPECIALIST ESTRADA GUZMAN M.D. Performed By: #### C BCNO #### [address] Ammoniaon 09-13-2023 Ammonia (P) [Moles/Vol] 10 umol/L Low 11-35 T he [facility] Comment on above: Result Comment: PERF ORMED BY: [place] [address] PATHOLOGIST QI SPECIALIST ESTRADA GUZMAN M.D. Performed By: #### A MM #### [address] Hemogram CBC Without Diffon 09-13-2023 Erythrocyte distribution width (RBC) [Ratio] 15.7 % High 11.9-15.3 [facility] Comment on above: Performed By: #### H EPATIC, CK, PT, HS TROP, BMP, DIFF CBC, BNP, PTT #### [address] Hematocrit (Bld) [Volume fraction] 24.9 % Low 34.0-46.4 [facility] Comment on above: Performed By: #### H EPATIC, CK, PT, HS TROP, BMP, DIFF CBC, BNP, PTT #### [address] Hemoglobin (Bld) [Mass/Vol] 8.2 g/dL Low 11.8-15.4 [facility] Comment on above: Performed By: #### H EPATIC, CK, PT, HS TROP, BMP, DIFF CBC, BNP, PTT #### [address] MCH (RBC) [Entitic mass] 29.3 pg Normal 24.7-34.3 [facility] Comment on above: Performed By: #### H EPATIC, CK, PT, HS TROP, BMP, DIFF CBC, BNP, PTT #### [address] MCV (RBC) [Entitic vol] 89.3 fL Normal 80-100 T he [facility] Comment on above: Performed By: #### H EPATIC, CK, PT, HS TROP, BMP, DIFF CBC, BNP, PTT #### [address] Mean Corpuscular HGB Conc 32.8 g/dL Normal 32.0-35.0 [facility] Comment on above: Performed By: #### H EPATIC, CK, PT, HS TROP, BMP, DIFF CBC, BNP, PTT #### [address] Platelet mean volume (Bld) [Entitic vol] 7.6 fL Normal 6.3-10.7 [facility] Comment on above: Result Comment: PERF ORMED BY: [place] [address] PATHOLOGIST QI SPECIALIST ESTRADA GUZMAN M.D. Performed By: #### H EPATIC, CK, PT, HS TROP, BMP, DIFF CBC, BNP, PTT #### [address] Platelets (Bld) [#/Vol] 122 10*3/uL Low 150-450 [facility] Comment on above: Performed By: #### H EPATIC, CK, PT, HS TROP, BMP, DIFF CBC, BNP, PTT #### [address] RBC (Bld) [#/Vol] 2.79 10*6/uL Low 3.60-5.00 [facility] Comment on above: Performed By: #### H EPATIC, CK, PT, HS TROP, BMP, DIFF CBC, BNP, PTT #### [address] WBC (Bld) [#/Vol] 16.9 10*3/uL High 3.8-11.6 [facility] Comment on above: Performed By: #### H EPATIC, CK, PT, HS TROP, BMP, DIFF CBC, BNP, PTT #### [address] Renal Function Panelon 09-12 Albumin [Mass/Vol] 2.4 g/dL Low 3.5-5.7 [facility] Comment on above: Performed By: #### A MM #### [address] Anion gap [Moles/Vol] 11.8 mmol/L Normal 6.0-15.0 Th e [facility] Comment on above: Performed By: #### A MM #### [address] Calcium [Mass/Vol] 8.0 mg/dL Low 8.6-10.3 [facility] Comment on above: Performed By: #### A MM #### [address] Chloride [Moles/Vol] 93 mmol/L Low 98-107 [facility] Comment on above: Performed By: #### A MM #### [address] CO2 [Moles/Vol] 26.7 mmol/L Normal 21.0-31.0 [facility] Comment on above: Performed By: #### A MM #### [place] [address] [place] Creatinine [Mass/Vol] 5.02 mg/dL Significan t change up 0.60-1.20 [facility] Comment on above: Performed By: #### A MM #### [address] Creatinine Clr Calc Pharmacy 13.99 Normal [facility] Comment on above: Result Comment: PERF ORMED BY: [place] [address] PATHOLOGIST QI SPECIALIST ESTRADA GUZMAN M.D. Performed By: #### A MM #### [address] GFR/1.73 sq M.predicted MDRD (S/P/Bld) [Vol rate/Area] 10.536 mL/min/{1.73_m2} Normal [facility] Comment on above: Performed By: #### A MM #### [address] Glucose [Mass/Vol] 82 mg/dL Normal 70-100 [facility] Comment on above: Result Comment: [facility][note 3] Glucose Reference Range is dependent on time and content of last meal. Glucose of more than 200 mg/dL in a nonstressed, ambulatory subject supports the diagnosis of Diabetes Mellitus. ADA recommended reference range Performed By: #### A MM #### [address] Phosphate [Mass/Vol] 3.1 mg/dL Normal 2.5-4.5 [facility] Comment on above: Performed By: #### A MM #### [place] [address] [place] Potassium [Moles/Vol] 3.5 mmol/L Normal 3.5-5.1 [facility] Comment on above: Performed By: #### A MM #### [address] Sodium [Moles/Vol] 128 mmol/L Low 136-145 [facility] Comment on above: Performed By: #### A MM #### [address] Urea nitrogen [Mass/Vol] 25 mg/dL Normal 7-25 [facility] Comment on above: Performed By: #### A MM #### [address] US arterial pvr rest UEon US arterial pvr rest UE [facility] [place] [address] [place] [address] Ultrasound Report Signed Patient: Winnie Cai MR#: [id number] 71 : 1985 Acct:[id number] Age/Sex: 38 / F ADM Date: 09/08/23 Loc: Room: [address] [place] [address] Type: ADM IN Attending Dr: Hortensia Cordero MD Ordering Provider: Hortensia Cordero MD Date of Service: 09/12/23 US/US arterial pvr rest UE: weak pulse Copies to: Hortensia Cordero MD Bilateral upper extremity arterial duplex evaluation INDICATIONS: Weak right radial pulse FINDINGS: Right upper extremity: Wrist brachial index is normal. Waveforms are normal. Left upper extremity: Wrist brachial index is normal. Waveforms are normal. US/US arterial pvr rest UE IMPRESSION: Normal study. Impression dictated by: Lobito Joe MD09/13/2023 11:52 AM Dictation Location: [place] [address] Tech: Chanel Lightpretty Transcribed By: [facility] 09/13/23 1152 Dictated By: Lobito Joe MD 09/13/23 1151 Signed By: 09/13/23 1152 Normal [facility] Ammoniaon 09-12-2023 Ammonia (P) [Moles/Vol] 17 umol/L Normal 11-35 T [facility] Comment on above: Result Comment: PERF ORMED BY: [place] [address] PATHOLOGIST QI SPECIALIST ESTRADA GUZMAN M.D. Performed By: #### A MM #### [address] Hemogram CBC Without Diffon 09-12-2023 Erythrocyte distribution width (RBC) [Ratio] 15.7 % High 11.9-15.3 [facility] Comment on above: Performed By: #### C BCNO ####[address] Hematocrit (Bld) [Volume fraction] 23.7 % Low 34.0-46.4 [facility] Comment on above: Performed By: #### C BCNO ####[address] Hemoglobin (Bld) [Mass/Vol] 7.8 g/dL Low 11.8-15.4 [facility] Comment on above: Performed By: #### C BCNO ####[address] MCH (RBC) [Entitic mass] 29.1 pg Normal 24.7-34.3 [facility] Comment on above: Performed By: #### C BCNO ####[address] MCV (RBC) [Entitic vol] 88.9 fL Normal 80-100 T [facility] Comment on above: Performed By: #### C BCNO ####[address] Mean Corpuscular HGB Conc 32.8 g/dL Normal 32.0-35.0 [facility] Comment on above: Performed By: #### C BCNO ####[address] Platelet mean volume (Bld) [Entitic vol] 7.4 fL Normal 6.3-10.7 [facility] Comment on above: Result Comment: PERF ORMED BY: [facility] [address] [place] [address] PATHOLOGIST QI SPECIALIST ESTRADA GUZMAN M.D. Performed By: #### C BCNO ####[address] Platelets (Bld) [#/Vol] 119 10*3/uL Low 150-450 [facility] Comment on above: Performed By: #### C BCNO ####[address] RBC (Bld) [#/Vol] 2.67 10*6/uL Low 3.60-5.00 [facility] Comment on above: Performed By: #### C BCNO ####[address] WBC (Bld) [#/Vol] 12.6 10*3/uL High 3.8-11.6 [facility] Comment on above: Performed By: #### C BCNO ####[address] Renal Function Panelon 09-11 Albumin [Mass/Vol] 2.2 g/dL Low 3.5-5.7 [facility] Comment on above: Performed By: #### H EPATIC, CK, PT, HS TROP, BMP, DIFF CBC, BNP, PTT #### [address] Anion gap [Moles/Vol] 11.9 mmol/L Normal 6.0-15.[address] [facility] Comment on above: Performed By: #### H EPATIC, CK, PT, HS TROP, BMP, DIFF CBC, BNP, PTT #### [address] Calcium [Mass/Vol] 7.8 mg/dL Low 8.6-10.3 [facility] Comment on above: Performed By: #### H EPATIC, CK, PT, HS TROP, BMP, DIFF CBC, BNP, PTT #### [facility] [address] Chloride [Moles/Vol] 92 mmol/L Low 98-107 [facility] Comment on above: Performed By: #### H EPATIC, CK, PT, HS TROP, BMP, DIFF CBC, BNP, PTT #### [address] CO2 [Moles/Vol] 29.3 mmol/L Normal 21.0-31.0 [facility] Comment on above: Performed By: #### H EPATIC, CK, PT, HS TROP, BMP, DIFF CBC, BNP, PTT #### [address] Creatinine [Mass/Vol] 3.61 mg/dL Significan t change up 0.60-1.20 [facility] Comment on above: Performed By: #### H EPATIC, CK, PT, HS TROP, BMP, DIFF CBC, BNP, PTT #### [address] Creatinine Clr Calc Pharmacy 19.35 Normal [facility] Comment on above: Result Comment: PERF ORMED BY: [place] [address] PATHOLOGIST QI SPECIALIST ESTRADA GUZMAN M.D. Performed By: #### H EPATIC, CK, PT, HS TROP, BMP, DIFF CBC, BNP, PTT #### [address] GFR/1.73 sq M.predicted MDRD (S/P/Bld) [Vol rate/Area] 15.651 mL/min/{1.73_m2} Normal [facility] Comment on above: Performed By: #### H EPATIC, CK, PT, HS TROP, BMP, DIFF CBC, BNP, PTT #### [address] Glucose [Mass/Vol] 70 mg/dL Normal 70-100 [facility] Comment on above: Result Comment: [place] Glucose Reference Range is dependent on time and content of last meal. Glucose of more than 200 mg/dL in a nonstressed, ambulatory subject supports the diagnosis of Diabetes Mellitus. ADA recommended reference range Performed By: #### H EPATIC, CK, PT, HS TROP, BMP, DIFF CBC, BNP, PTT #### [address] Phosphate [Mass/Vol] 2.7 mg/dL Normal 2.5-4.5 [facility] Comment on above: Performed By: #### H EPATIC, CK, PT, HS TROP, BMP, DIFF CBC, BNP, PTT #### [address] Potassium [Moles/Vol] 3.2 mmol/L Low 3.5-5.1 [facility] Comment on above: Performed By: #### H EPATIC, CK, PT, HS TROP, BMP, DIFF CBC, BNP, PTT #### [address] Sodium [Moles/Vol] 130 mmol/L Low 136-145 [facility] Comment on above: Performed By: #### H EPATIC, CK, PT, HS TROP, BMP, DIFF CBC, BNP, PTT #### [address] Urea nitrogen [Mass/Vol] 18 mg/dL Normal 7-25 [facility] Comment on above: Performed By: #### H EPATIC, CK, PT, HS TROP, BMP, DIFF CBC, BNP, PTT #### [address] XR shoulder RT min 2V*on XR shoulder RT min 2V* [facility] [place] [address] [place] [address] XRay Report Signed Patient: Winnie Cai MR#: [id number] 71 : 1985 Acct:[id number] Age/Sex: 38 / F ADM Date: 09/08/23 Loc: Room: [address] [place] [address] Type: ADM IN Attending Dr: Hortensia Cordero MD Copies to: Hortensia Cordero MD Ordering Provider: Hortensia Cordero MD Date of Service: 09/12/23 XR/XR shoulder RT min 2V*: f/u fracture RIGHT SHOULDER - - 4 views CLINICAL HISTORY: Right shoulder fracture. Follow-up. COMPARISON: Chest 09/08/2023. FINDINGS: Comminuted, impacted fracture involving the right humeral head/neck with approximately 1.8 cm of medial displacement of the humeral neck with respect to the humeral head. Bones are grossly demineralized. There is questionable developing periosteal reaction suggestive of healing response. XR/XR shoulder RT min 2V* IMPRESSION: COMMINUTED IMPACTED FRACTURE INVOLVING THE RIGHT HUMERAL HEAD/NECK WITH WHAT APPEARS TO BE PERIOSTEAL REACTION NOTED SUGGESTIVE OF HEALING RESPONSE. Impression dictated by: Emeka Gardner Jr., D.O.09/12/2023 2:29 PM Dictation Location: [place] [address] Transcribed By: [facility] 09/12/23 1429 Dictated By: Emeka Gardner Jr, DO 09/12/23 142 Signed By: 09/12/23 1429 Normal [facility] Activated partial thrombopla stin time (aPTT) in platelet poor plasma by coagulation aOrdered By: Hortensia Cordero on 09-11-2023 aPTT Coag (PPP) [Time] 27.2 s 25.1-36.5 [facility] Comment on above: A hematocrit value g reater than 55% may lead to inaccurate results in coagulation testing. Patients having hematocrit values >55% require a special collection tube for coagulation studies. Please contact the laboratory at [phone] for redraw instructions. Coagulation Profileon 2023 aPTT Coag (Bld) [Time] 27.2 s Normal 25.1-36.5 Th e [facility] Comment on above: Result Comment: A he matocrit value greater than 55% may lead to inaccurate results in coagulation testing. Patients having hematocrit values >55% require a special collection tube for coagulation studies. Please contact the laboratory at [phone] for redraw instructions. PERFORMED BY: [place] [address] PATHOLOGIST QI SPECIALIST ESTRADA GUZMAN M.D. Performed By: #### H EPATIC, CK, PT, HS TROP, BMP, DIFF CBC, BNP, PTT #### [facility] [address] [place] [address] INR Coag (PPP) [Relative time] 1.1 {INR} Normal [facility] Comment on above: Result Comment: INR Therapeutic Range A) Pre- and Peroperative OAT started two weeks before surgery. NOT HIP SURGERY: 1.5 - 2.5 HIP SURGERY: 2 - 3 B) Primary and secondary prevention of venous THROMBOSIS: 2 - 3 C) Active venous thrombosis, pulmonary embolism and prevention of recurrent venous thrombosis: 2 - 3 D) Prevention of arterial thromboembolism including patients with mechanical heart valves: 3 - 4.5 Performed By: #### H EPATIC, CK, PT, HS TROP, BMP, DIFF CBC, BNP, PTT #### [place] [id number] [facility] PT Coag (PPP) [Time] 12.8 s Normal 9.0-12.9 [facility] Comment on above: Result Comment: A he matocrit value greater than 55% may lead to inaccurate results in coagulation testing. Patients having hematocrit values >55% require a special collection tube for coagulation studies. Please contact the laboratory at [phone] for redraw instructions. Performed By: #### H EPATIC, CK, PT, HS TROP, BMP, DIFF CBC, BNP, PTT #### [place] [id number] [facility] Creatine Kinaseon 09-11-2023 CK [Catalytic activity/Vol] 189 U/L Normal 30-223 [facility] Comment on above: Result Comment: PERF ORMED BY: [place] [address] PATHOLOGIST QI SPECIALIST ESTRADA GUZMAN M.D. Performed By: #### A MM #### [place] [id number] [facility] Creatine kinase [Enzymatic a ctivity/volume] in Serum or PlasmaOrdered By: Hortensia Cordero on 09-11-2023 CK [Catalytic activity/Vol] 189 U/L 30-223 [facility] Glucose Poct Glucometerson 0 09-11-2023 Glucose [Mass/Vol] 82 mg/dL Normal [facility] Comment on above: Result Comment: [facility][note 3] Glucose Reference Range is dependent on time and content of last meal. Glucose of more than 200 mg/dL in a nonstressed, ambulatory subject supports the diagnosis of Diabetes Mellitus. PERFORMED BY: [place] [address] PATHOLOGIST QI SPECIALIST ESTRADA GUZMAN M.D. Performed By: #### C BCNO #### [address] Hemogram CBC Without Diffon 09-11-2023 Erythrocyte distribution width (RBC) [Ratio] 15.6 % High 11.9-15.3 [facility] Comment on above: Performed By: #### A MM #### [address] Hematocrit (Bld) [Volume fraction] 22.2 % Low 34.0-46.4 [facility] Comment on above: Performed By: #### A MM #### [address] Hemoglobin (Bld) [Mass/Vol] 7.4 g/dL Low 11.8-15.4 [facility] Comment on above: Performed By: #### A MM #### [address] MCH (RBC) [Entitic mass] 29.4 pg Normal 24.7-34.3 [facility] Comment on above: Performed By: #### A MM #### [address] MCV (RBC) [Entitic vol] 88.5 fL Normal 80-100 T he [facility] Comment on above: Performed By: #### A MM #### [address] Mean Corpuscular HGB Conc 33.2 g/dL Normal 32.0-35.0 [facility] Comment on above: Performed By: #### A MM #### [address] Platelet mean volume (Bld) [Entitic vol] 7.4 fL Normal 6.3-10.7 [facility] Comment on above: Result Comment: PERF ORMED BY: [place] [address] PATHOLOGIST QI SPECIALIST ESTRADA GUZMAN M.D. Performed By: #### A MM #### [facility] [address] Platelets (Bld) [#/Vol] 131 10*3/uL Low 150-450 [facility] Comment on above: Performed By: #### A MM #### [facility] [address] RBC (Bld) [#/Vol] 2.50 10*6/uL Low 3.60-5.00 [facility] Comment on above: Performed By: #### A MM #### [facility] [address] [place] [address] [place] WBC (Bld) [#/Vol] 22.6 10*3/uL High 3.8-11.6 [facility] Comment on above: Performed By: #### A MM #### [address] INR in Platelet poor plasma by Coagulation assayOrdered By: Hortensia Cordero on 09-11-2023 INR Coag (PPP) [Relative time] 1.1 {INR} [facility] Comment on above: INR Therapeutic Rang e A) Pre- and Peroperative OAT started two weeks before surgery. NOT HIP SURGERY: 1.5 - 2.5 HIP SURGERY: 2 - 3B) Primary and secondary prevention of venous THROMBOSIS: 2 - 3C) Active venous thrombosis, pulmonary embolismand prevention of recurrent venous thrombosis: 2 - 3D) Prevention of arterial thromboembolismincluding patients with mechanical heart valves: 3 - 4.5 Prothrombin time (PT)Ordered By: Hortensia Cordero on 09-11-2023 PT Coag (PPP) [Time] 12.8 s 9.0-12.9 [facility] Comment on above: A hematocrit value g reater than 55% may lead to inaccurate results in coagulation testing. Patients having hematocrit values >55% require a special collection tube for coagulation studies. Please contact the laboratory at [phone] for redraw instructions. Renal Function Panelon 09-10 Albumin [Mass/Vol] 2.2 g/dL Low 3.5-5.7 [facility] Comment on above: Performed By: #### A MM #### [address] Anion gap [Moles/Vol] 16.0 mmol/L High 6.0-15.0 Th e [facility] Comment on above: Performed By: #### A MM #### [address] Calcium [Mass/Vol] 8.3 mg/dL Low 8.6-10.3 [facility] Comment on above: Performed By: #### A MM #### [address] Chloride [Moles/Vol] 87 mmol/L Low 98-107 [facility] Comment on above: Performed By: #### A MM #### [address] CO2 [Moles/Vol] 28.0 mmol/L Normal 21.0-31.0 [facility] Comment on above: Performed By: #### A MM #### [address] Creatinine [Mass/Vol] 7.26 mg/dL Significan t change up 0.60-1.20 [facility] Comment on above: Performed By: #### A MM #### [address] Creatinine Clr Calc Pharmacy 8.89 Normal [facility] Comment on above: Result Comment: PERF ORMED BY: [place] [address] PATHOLOGIST QI SPECIALIST ESTRADA GUZMAN M.D. Performed By: #### A MM #### [address] GFR/1.73 sq M.predicted MDRD (S/P/Bld) [Vol rate/Area] 6.767 mL/min/{1.73_m2} Normal [facility] Comment on above: Performed By: #### A MM #### [address] Glucose [Mass/Vol] 67 mg/dL Low 70-100 [facility] Comment on above: Result Comment: [facility][note 3] Glucose Reference Range is dependent on time and content of last meal. Glucose of more than 200 mg/dL in a nonstressed, ambulatory subject supports the diagnosis of Diabetes Mellitus. ADA recommended reference range Performed By: #### A MM #### [address] Phosphate [Mass/Vol] 5.7 mg/dL High 2.5-4.5 [facility] Comment on above: Performed By: #### A MM #### [address] Potassium [Moles/Vol] 3.0 mmol/L Low 3.5-5.1 [facility] Comment on above: Performed By: #### A MM #### [address] Sodium [Moles/Vol] 128 mmol/L Low 136-145 [facility] Comment on above: Performed By: #### A MM #### [address] Urea nitrogen [Mass/Vol] 42 mg/dL High 7-25 [facility] Comment on above: Performed By: #### A MM #### [address] Absolute reticulocyte countO rdered By: Hortensia Cordero on 09-10-2023 Reticulocytes (Bld) [#/Vol] 0.021 10*6/uL Low 0.024-0.084 [facility] Clostridioides difficile tox in B tcdB gene [Presence] in Stool by LIZETTE with probe deteOrdered By: Hortensia Cordero on 09-10-2023 C. difficile toxin B tcdB gene LIZETTE+probe Ql (Stl) Positive Abnormal Negative [facility] Comment on above: Testing performed by RT-PCR Clostridium Difficileon 08-24 Clostridium Difficile Positive Normal Negative [facility] Comment on above: Order Comment: Resul ts called at 2356 on 09/10/23 > or = to 3 loose/watery stools in the last 24 HRS? Y Is patient on promotility agents or tube feeding? Y Result Comment: Test ing performed by RT-PCR PERFORMED BY: [place] [address] PATHOLOGIST QI SPECIALIST ESTRADA GUZMAN M.D. Performed By: #### H EPATIC, CK, PT, HS TROP, BMP, DIFF CBC, BNP, PTT #### [address] Creatine Kinaseon 09-10-2023 CK [Catalytic activity/Vol] 685 U/L High 30-223 [facility] Comment on above: Result Comment: PERF ORMED BY: [place] [address] PATHOLOGIST QI SPECIALIST ESTRADA GUZMAN M.D. Performed By: #### A MM #### [address] Glucose Poct Glucometerson 0 09-10-2023 Glucose [Mass/Vol] 148 mg/dL Normal [facility] Comment on above: Result Comment: [facility][note 3] Glucose Reference Range is dependent on time and content of last meal. Glucose of more than 200 mg/dL in a nonstressed, ambulatory subject supports the diagnosis of Diabetes Mellitus. PERFORMED BY: [place] [address] PATHOLOGIST QI SPECIALIST ESTRADA GUZMAN M.D. Performed By: #### H EPATIC, CK, PT, HS TROP, BMP, DIFF CBC, BNP, PTT #### [address] Hemogram CBC Without Diffon 09-10-2023 Erythrocyte distribution width (RBC) [Ratio] 15.9 % High 11.9-15.3 [facility] Comment on above: Performed By: #### R ETIC, CBCNO ####[address] Hematocrit (Bld) [Volume fraction] 23.7 % Low 34.0-46.4 [facility] Comment on above: Performed By: #### R ETIC, CBCNO ####[address] [place] [address] [place] Hemoglobin (Bld) [Mass/Vol] 7.8 g/dL Low 11.8-15.4 [facility] Comment on above: Performed By: #### R ETIC, CBCNO ####[address] MCH (RBC) [Entitic mass] 28.8 pg Normal 24.7-34.3 [facility] Comment on above: Performed By: #### R ETIC, CBCNO ####[address] MCV (RBC) [Entitic vol] 87.3 fL Normal 80-100 T [facility] Comment on above: Performed By: #### R ETIC, CBCNO ####[address] Mean Corpuscular HGB Conc 33.0 g/dL Normal 32.0-35.0 [facility] Comment on above: Performed By: #### R ETIC, CBCNO ####[address] Platelet mean volume (Bld) [Entitic vol] 7.9 fL Normal 6.3-10.7 [facility] Comment on above: Performed By: #### R ETIC, CBCNO ####[address] Platelets (Bld) [#/Vol] 164 10*3/uL Normal 150-450 [facility] Comment on above: Performed By: #### R ETIC, CBCNO ####[address] RBC (Bld) [#/Vol] 2.71 10*6/uL Low 3.60-5.00 [facility] Comment on above: Performed By: #### R ETIC, CBCNO ####[address] WBC (Bld) [#/Vol] 31.5 10*3/uL High 3.8-11.6 [facility] Comment on above: Performed By: #### R ETIC, CBCNO ####[facility] [place] [address] Lactoferrin, Stool WBCon Lactoferrin, Stool WBC LACTOFERRIN Positive for Fecal Lactoferrin Review patient history for chronic inflammatory conditions and status which can cause positive results unrelated to acute infectious disease. ------ Reference range = Negative PERFORMED BY: [place] [address] PATHOLOGIST QI SPECIALIST ESTRADA GUZMAN M.D. Normal [facility] Comment on above: Performed By: #### L ACTO SWBC ####[address] Renal Function Panelon 09-09 Albumin [Mass/Vol] 2.2 g/dL Low 3.5-5.7 [facility] Comment on above: Performed By: #### A MM #### [address] Anion gap [Moles/Vol] 13.4 mmol/L Normal 6.0-15.0 Th e [facility] Comment on above: Performed By: #### A MM #### [address] Calcium [Mass/Vol] 7.9 mg/dL Low 8.6-10.3 [facility] Comment on above: Performed By: #### A MM #### [address] Chloride [Moles/Vol] 91 mmol/L Low 98-107 [facility] Comment on above: Performed By: #### A MM #### [address] CO2 [Moles/Vol] 27.0 mmol/L Normal 21.0-31.0 [facility] Comment on above: Performed By: #### A MM #### [address] Creatinine [Mass/Vol] 5.93 mg/dL Significan t change up 0.60-1.20 [facility] Comment on above: Performed By: #### A MM #### [address] Creatinine Clr Calc Pharmacy 11.89 Normal [facility] Comment on above: Result Comment: PERF ORMED BY: [place] [address] PATHOLOGIST QI SPECIALIST ESTRADA GUZMAN M.D. Performed By: #### A MM #### [address] GFR/1.73 sq M.predicted MDRD (S/P/Bld) [Vol rate/Area] 8.627 mL/min/{1.73_m2} Normal [facility] Comment on above: Performed By: #### A MM #### [address] Glucose [Mass/Vol] 104 mg/dL High 70-100 [facility] Comment on above: Result Comment: [facility][note 3] Glucose Reference Range is dependent on time and content of last meal. Glucose of more than 200 mg/dL in a nonstressed, ambulatory subject supports the diagnosis of Diabetes Mellitus. ADA recommended reference range Performed By: #### A MM #### [address] Phosphate [Mass/Vol] 4.8 mg/dL High 2.5-4.5 [facility] Comment on above: Performed By: #### A MM #### [address] Potassium [Moles/Vol] 3.4 mmol/L Low 3.5-5.1 [facility] Comment on above: Performed By: #### A MM #### [address] Sodium [Moles/Vol] 128 mmol/L Significant change down 136-145 [facility] Comment on above: Performed By: #### A MM #### [facility] [address] Urea nitrogen [Mass/Vol] 29 mg/dL Significant change up 7-25 [facility] Comment on above: Performed By: #### A MM #### [address] Reticulocyte Counton 024 Reticulocyte Number 0.021 10*6/uL Low 0.024-0.084 T he [facility] Comment on above: Result Comment: PERF ORMED BY: [place] [address] PATHOLOGIST QI SPECIALIST ESTRADA GUZMAN M.D. Performed By: #### R ETIC, CBCNO ####[facility] Reticulocyte Percent 0.8 % Normal 0.5-1.5 [facility] Comment on above: Performed By: #### R ETIC, CBCNO ####[facility] Reticulocytes/100 RBC Auto ( Bld)Ordered By: Hortensia Cordero on 09-10-2023 Reticulocytes/100 RBC (Bld) 0.8 % 0.5-1.5 [facility] Stool lactoferrin detectionO rdered By: Hortesnia Cordero on 09-10-2023 Lactoferrin Ql (Stl) [facility] Vancomycin [Mass/volume] in Serum or PlasmaOrdered By: Hortensia Cordero on 09-10-2023 Vancomycin [Mass/Vol] 14.4 ug/mL 5.0-20.0 [facility] Comment on above: Last dose: - Vancomycin,Randomon 09-10-19 24 Vancomycin,Random 14.4 ug/mL Normal 5.0-20.0 [facility] Comment on above: Order Comment: Date of last dose?: [id number] Time of last dose?: 1100 Result Comment: Last dose: - PERFORMED BY: [place] [address] PATHOLOGIST QI SPECIALIST ESTRADA GUZMAN M.D. Performed By: #### A MM #### [address] ABO/Rh Retypeon 09-09-2023 ABO/RH Recheck Result Positive Normal [facility] Comment on above: Result Comment: PERF ORMED BY: [place] [address] PATHOLOGIST QI SPECIALIST ESTRADA GUZMAN M.D. Ammoniaon 09-09-2023 Ammonia (P) [Moles/Vol] 59 umol/L High 11-35 T he [facility] Comment on above: Result Comment: PERF ORMED BY: [place] [address] PATHOLOGIST QI SPECIALIST ESTRADA GUZMAN M.D. Performed By: #### H EPATIC, CK, PT, HS TROP, BMP, DIFF CBC, BNP, PTT #### [address] Comprehensive Metabolic Pane german 09-09-2023 Albumin [Mass/Vol] 2.2 g/dL Low 3.5-5.7 [facility] Comment on above: Performed By: #### B MP #### [address] Albumin/Globulin [Mass ratio] 0.9 {ratio} Normal [facility] Comment on above: Performed By: #### B MP #### [address] ALP [Catalytic activity/Vol] 168 U/L High 34-104 [facility] Comment on above: Performed By: #### B MP #### [address] ALT [Catalytic activity/Vol] 49 U/L Normal 7-52 [facility] Comment on above: Performed By: #### B MP #### [address] Anion gap [Moles/Vol] 23.8 mmol/L High 6.0-15.0 Th e [facility] Comment on above: Performed By: #### B MP #### [address] AST [Catalytic activity/Vol] 114 U/L High 13-39 [facility] Comment on above: Performed By: #### B MP #### [address] Bilirubin [Mass/Vol] 1.1 mg/dL High 0.3-1.0 [facility] Comment on above: Performed By: #### B MP #### [address] Calcium [Mass/Vol] 6.8 mg/dL Low 8.6-10.3 [facility] Comment on above: Performed By: #### B MP #### [address] Chloride [Moles/Vol] 83 mmol/L Low 98-107 [facility] Comment on above: Performed By: #### B MP #### [address] CO2 [Moles/Vol] 15.5 mmol/L Low 21.0-31.0 [facility] Comment on above: Performed By: #### B MP #### [address] Creatinine [Mass/Vol] 12.77 mg/dL High 0.60-1.20 Th e [facility] Comment on above: Performed By: #### B MP #### [address] Creatinine Clr Calc Pharmacy 5.06 Normal [facility] Comment on above: Performed By: #### B MP #### [address] GFR/1.73 sq M.predicted MDRD (S/P/Bld) [Vol rate/Area] 3.437 mL/min/{1.73_m2} Normal [facility] Comment on above: Performed By: #### B MP #### [address] Globulin (S) [Mass/Vol] 2.5 g/dL Normal T he [facility] Comment on above: Performed By: #### B MP #### [address] Glucose [Mass/Vol] 85 mg/dL Normal 70-100 [facility] Comment on above: Result Comment: [place] Glucose Reference Range is dependent on time and content of last meal. Glucose of more than 200 mg/dL in a nonstressed, ambulatory subject supports the diagnosis of Diabetes Mellitus. ADA recommended reference range Performed By: #### B MP #### [address] Potassium [Moles/Vol] 4.3 mmol/L Normal 3.5-5.1 [facility] Comment on above: Performed By: #### B MP #### [address] Protein [Mass/Vol] 4.7 g/dL Low 6.4-8.9 [facility] Comment on above: Performed By: #### B MP #### [address] Sodium [Moles/Vol] 118 mmol/L Off scale low 136-145 [facility] Comment on above: Result Comment: Crit ical Result Called to and read back by: NOT FIRST CRITICAL at: 09/09/2023 05:22:46 by:[id number] Performed By: #### B MP #### [place] [address] [place] Urea nitrogen [Mass/Vol] 69 mg/dL High 7-25 [facility] Comment on above: Performed By: #### B MP #### [address] Creatine Kinaseon 09-09-2023 CK [Catalytic activity/Vol] 2472 U/L High 30-223 [facility] Comment on above: Result Comment: PERF ORMED BY: [place] [address] PATHOLOGIST QI SPECIALIST ESTRADA GUZMAN M.D. Performed By: #### B MP #### [address] Glucose Poct Glucometerson 0 09-09-2023 Glucose [Mass/Vol] 80 mg/dL Normal [facility] Comment on above: Result Comment: [place] Glucose Reference Range is dependent on time and content of last meal. Glucose of more than 200 mg/dL in a nonstressed, ambulatory subject supports the diagnosis of Diabetes Mellitus. PERFORMED BY: [place] [address] PATHOLOGIST QI SPECIALIST ESTRADA GUZMAN M.D. Performed By: #### H EPATIC, CK, PT, HS TROP, BMP, DIFF CBC, BNP, PTT #### [address] Hemogram CBC Without Diffon 09-09-2023 Erythrocyte distribution width (RBC) [Ratio] 16.1 % High 11.9-15.3 [facility] Comment on above: Performed By: #### B MP #### [address] Hematocrit (Bld) [Volume fraction] 22.9 % Low 34.0-46.4 [facility] Comment on above: Performed By: #### B MP #### [address] Hemoglobin (Bld) [Mass/Vol] 7.5 g/dL Low 11.8-15.4 [facility] Comment on above: Performed By: #### B MP #### [address] MCH (RBC) [Entitic mass] 29.1 pg Normal 24.7-34.3 [facility] Comment on above: Performed By: #### B MP #### [place] [id number] [place] MCV (RBC) [Entitic vol] 88.4 fL Normal 80-100 T he [facility] Comment on above: Performed By: #### B MP #### [address] Mean Corpuscular HGB Conc 32.9 g/dL Normal 32.0-35.0 [facility] Comment on above: Performed By: #### B MP #### [address] Platelet mean volume (Bld) [Entitic vol] 7.8 fL Normal 6.3-10.7 [facility] Comment on above: Result Comment: PERF ORMED BY: [place] [address] PATHOLOGIST QI SPECIALIST ESTRADA GUZMAN M.D. Performed By: #### B MP #### [address] Platelets (Bld) [#/Vol] 207 10*3/uL Normal 150-450 [facility] Comment on above: Performed By: #### B MP #### [address] RBC (Bld) [#/Vol] 2.59 10*6/uL Low 3.60-5.00 [facility] Comment on above: Performed By: #### B MP #### [address] WBC (Bld) [#/Vol] 28.9 10*3/uL High 3.8-11.6 [facility] Comment on above: Performed By: #### B MP #### [address] Hepatitis Acute Panelon - HBsAg Screen Negative Normal Negative [facility] Comment on above: Performed By: #### B MP #### [address] Hepatitis A Antibody IgM Negative Normal Negative [facility] Comment on above: Performed By: #### B MP #### [address] Hepatitis B Core Antibody IgM Negative Normal Negative [facility] Comment on above: Performed By: #### B MP #### [address] Hepatitis C Virus Antibody Non-Reactive Normal Non Reactive [facility] Comment on above: Performed By: #### B MP #### [address] Interpretation Hepatitis C Normal . [facility] Comment on above: Result Comment: Not infected with HCV unless early or acute infection is suspected (which may be delayed in an immunocompromised individual), or other evidence exists to indicate HCV infection. Performed By: #### B MP #### [address] Hepatitis B Core Antibodyon 09-09-2023 Hepatitis B Core Antibody Negative Normal Negative [facility] Comment on above: Result Comment: Perf ormed at: - [facility] [place] [address] Chiropractic Practice Manager: vOi Avila PhD, Phone: [phone] PERFORMED BY: [place] [address] PATHOLOGIST QI SPECIALIST ESTRADA GUZMAN M.D. Performed By: #### B MP #### [address] Hepatitis B Surface Antibody on 09-09-2023 Hepatitis B Surface Antibody Non-Reactive Normal . [facility] Comment on above: Result Comment: Non Reactive: Inconsistent with immunity, less than 10 mIU/mL Reactive: Consistent with immunity, greater than 9.9 mIU/mL Performed By: #### B MP #### [address] Hepatitis B virus surface Ab [Presence] in SerumOrdered By: Tima Lara on 09-09-2023 HBV surface Ab Ql (S) Non-Reactive . [facility] Comment on above: Non Reactive: Incons istent with immunity, less than 10 mIU/mL Reactive: Consistent with immunity, greater than 9.9 mIU/mL Hepatitis B virus surface Ag [Presence] in Serum or Plasma by ImmunoassayOrdered By: Tima Lara on 09-09-2023 HBV surface Ag IA Ql Negative Negative [facility] Hepatitis C virus IgG Ab [Pr esence] in Serum or Plasma by ImmunoassayOrdered By: Tima Lara on 09-09-2023 HCV IgG IA Ql Non-Reactive Non Reactive [facility] Hepatitis C virus RNA [Units /volume] (viral load) in Serum or Plasma by LIZETTE with probOrdered By: Tima Lara on 09-09-2023 HCV RNA LIZETTE+probe Qn N/A [facility] Hepatitis C virus RNA [log u nits/volume] (viral load) in Serum or Plasma by LIZETTE withOrdered By: Tima Lara on 09-09-2023 HCV RNA LIZETTE+probe [Log units/Vol] N/A [facility] No Panel InformationOrdered By: [facility] on 09-09-2023 Hepatitis A IgM Antibody Negative Negative [facility] Hepatitis B Core IgM Antibody Negative Negative [facility] Hepatitis B Core Total Antibody Negative Negative [facility] Comment on above: Performed at: [address] Director: Ovi Avila PhD, Phone: [phone] Hepatitis C Interpretation See comment . [facility] Comment on above: Not infected with HC V unless early or acute infection issuspected (which may be delayed in an immunocompromisedindividual), or other evidence exists to indicate HCVinfection. Thyroid Stimulating Hormoneo n 09-09-2023 TSH Qn 2.58 m[IU]/L Normal 0.45-5.33 [facility] Comment on above: Result Comment: PERF ORMED BY: [place] [address] PATHOLOGIST QI SPECIALIST ESTRADA GUZMAN M.D. Performed By: #### B MP #### [address] Thyrotropin [Units/volume] i n Serum or PlasmaOrdered By: Hortensia Cordero on 09-09-2023 TSH Qn 2.58 m[IU]/L 0.45-5.33 [facility] XR KUBon 09-09-2023 XR KUB [facility] Main [place] [address] [place] [address] XRay Report Signed Patient: Winnie Cai MR#: [id number] 71 : 1985 Acct:[id number] Age/Sex: 38 / F ADM Date: 09/08/23 Loc: Room: [address] [place] [address] Type: ADM IN Attending Dr: Hortensia Cordero MD Copies to: MD Hortensia Forde MD Ordering Provider: Larry Peters MD Date of Service: 09/09/23 XR/XR KUB: Right femoral dialysis catheter placement KUB: CLINICAL INFORMATION: Right femoral dialysis catheter placement. COMPARISON: CT abdomen and pelvis 09/08/2023 FINDINGS: Right-sided femoral line tip likely within the distal IVC. Skin aranza are noted. Gaseous distention involving the small bowel and colon. No free air. XR/XR KUB IMPRESSION: RIGHT-SIDED FEMORAL LINE TIP LIKELY IN THE DISTAL IVC. GASEOUS DISTENTION INVOLVING SMALL BOWEL AND COLON POSSIBLY RELATING TO ILEUS. FOLLOW-UP IS SUGGESTED. Impression dictated by: Emeka Gardner Jr., D.O.09/09/2023 12:22 PM Dictation Location: [place] [address] Transcribed By: [facility] 09/09/23 1222 Dictated By: Emeka Gardner Jr, DO 09/09/23 1220 Signed By: 09/09/23 1222 Normal [facility] Activated partial thrombopla stin time (aPTT) in platelet poor plasma by coagulation aOrdered By: Tone Martini on 09-08-2023 aPTT Coag (PPP) [Time] 35.4 s 25.1-36.5 [facility] Comment on above: A hematocrit value g reater than 55% may lead to inaccurate results in coagulation testing. Patients having hematocrit values >55% require a special collection tube for coagulation studies. Please contact the laboratory at [phone] for redraw instructions. Alanine aminotransferase [En zymatic activity/volume] in Serum or PlasmaOrdered By: Tone Martini on 09-08-2023 ALT [Catalytic activity/Vol] 47 U/L 7-52 [facility] Albumin [Mass/volume] in Ser um or Plasma by Bromocresol green (BCG) dye binding methoOrdered By: Tone Martini on 09-08-2023 Albumin BCG dye [Mass/Vol] 2.5 g/dL 3.5-5.7 [facility] Alkaline phosphatase [Enzyma tic activity/volume] in Serum or PlasmaOrdered By: Tone Martini on 09-08-2023 ALP [Catalytic activity/Vol] 231 U/L 34-104 [facility] Ammoniaon 09-08-2023 Ammonia (P) [Moles/Vol] 56 umol/L High 11-35 [facility] Comment on above: Result Comment: PERF ORMED BY: [address] [address] PATHOLOGIST QI SPECIALIST ESTRADA GUZMAN M.D. Performed By: #### H EPATIC, CK, PT, HS TROP, BMP, DIFF CBC, BNP, PTT #### [place] [id number] [facility] Ammonia [Moles/volume] in Pl asmaOrdered By: Tone Martini on 09-08-2023 Ammonia (P) [Moles/Vol] 56 umol/L 11-35 [facility] Anisocytosis LM Ql (Bld)Orde red By: Tone Martini on 09-08-2023 Anisocytosis Ql (Bld) Slight [facility] Aspartate aminotransferase [ Enzymatic activity/volume] in Serum or PlasmaOrdered By: Tone Martini on 09-08-2023 AST [Catalytic activity/Vol] 162 U/L 13-39 [facility] B-Type Natriuretic Peptideon 09-08-2023 Natriuretic peptide B (Bld) [Mass/Vol] 130.0 pg/mL High 5-100 [facility] Comment on above: Result Comment: PERF ORMED BY: [address] [address] PATHOLOGIST QI SPECIALIST ESTRADA GUZMAN M.D. Performed By: #### C BCNO #### [facility] [address] Bacterial blood cultureOrder ed By: Tone Martini on 09-08-2023 Bacteria identified Cx Nom (Bld) NO GROWTH 5 DAYS [facility] Bacteria identified Cx Nom (Bld) [facility] Basic Metabolic Panelon 08-24 Anion gap [Moles/Vol] 18.8 mmol/L High 6.0-15.0 Th e [facility] Comment on above: Performed By: #### V [id number], CBCNO, BMP, GIBSON, FE and TIBC ####[place] [id number] [address] Calcium [Mass/Vol] 6.4 mg/dL Off scale low 8.6-10.3 [facility] Comment on above: Result Comment: Crit ical Result Called to and read back by: ANALIA DAVIS at: 09/08/2023 16:55:34 by:BRITTANY Performed By: #### V [id number], CBCNO, BMP, GIBSON, FE and TIBC ####[place] [id number] [address] Chloride [Moles/Vol] 86 mmol/L Low 98-107 [facility] Comment on above: Performed By: #### V [id number], CBCNO, BMP, GIBSON, FE and TIBC ####[address] CO2 [Moles/Vol] 17.8 mmol/L Low 21.0-31.0 [facility] Comment on above: Performed By: #### V [id number], CBCNO, BMP, GIBSON, FE and TIBC ####[address] Creatinine [Mass/Vol] 12.64 mg/dL Significan t change up 0.60-1.20 [facility] Comment on above: Performed By: #### V [id number], CBCNO, BMP, GIBSON, FE and TIBC ####[address] Creatinine Clr Calc Pharmacy 5.11 Normal [facility] Comment on above: Result Comment: PERF ORMED BY: [facility] [address] [place] [address] PATHOLOGIST QI SPECIALIST ESTRADA GUZMAN M.D. Performed By: #### V [id number], CBCNO, BMP, GIBSON, FE and TIBC ####[address] GFR/1.73 sq M.predicted MDRD (S/P/Bld) [Vol rate/Area] 3.479 mL/min/{1.73_m2} Normal [facility] Comment on above: Performed By: #### V [id number], CBCNO, BMP, GIBSON, FE and TIBC ####[address] Glucose [Mass/Vol] 72 mg/dL Normal 70-100 [facility] Comment on above: Result Comment: [facility][note 3] Glucose Reference Range is dependent on time and content of last meal. Glucose of more than 200 mg/dL in a nonstressed, ambulatory subject supports the diagnosis of Diabetes Mellitus. ADA recommended reference range Performed By: #### V [id number], CBCNO, BMP, GIBSON, FE and TIBC ####[address] Potassium [Moles/Vol] 3.6 mmol/L Normal 3.5-5.1 [facility] Comment on above: Performed By: #### V [id number], CBCNO, BMP, GIBSON, FE and TIBC ####[address] Sodium [Moles/Vol] 119 mmol/L Off scale low 136-145 [facility] Comment on above: Result Comment: Crit ical Result Called to and read back by: ANALIA DAVIS at: 09/08/2023 16:55:34 by:BRITTANY Performed By: #### V [id number], CBCNO, BMP, GIBSON, FE and TIBC ####[facility] [id number] Urea nitrogen [Mass/Vol] 65 mg/dL High 7-25 [facility] [facility] Comment on above: Performed By: #### V [id number], CBCNO, BMP, GIBSON, FE and TIBC ####[facility] Anion gap [Moles/Vol] 22.1 mmol/L High 6.0-15.0 Th e [facility] Comment on above: Performed By: #### H EPATIC, CK, PT, HS TROP, BMP, DIFF CBC, BNP, PTT #### [address] Calcium [Mass/Vol] 7.2 mg/dL Low 8.6-10.3 The [facility] Comment on above: Result Comment: PERF ORMED BY: [place] [address] PATHOLOGIST QI SPECIALIST ESTRADA GUZMAN M.D. Performed By: #### H EPATIC, CK, PT, HS TROP, BMP, DIFF CBC, BNP, PTT #### [address] Chloride [Moles/Vol] 78 mmol/L Low 98-107 The [facility] Comment on above: Performed By: #### H EPATIC, CK, PT, HS TROP, BMP, DIFF CBC, BNP, PTT #### [address] CO2 [Moles/Vol] 20.6 mmol/L Low 21.0-31.0 The [facility] Comment on above: Performed By: #### H EPATIC, CK, PT, HS TROP, BMP, DIFF CBC, BNP, PTT #### [facility] [address] Creatinine [Mass/Vol] 13.93 mg/dL High 0.60-1.[address] [facility] Comment on above: Performed By: #### H EPATIC, CK, PT, HS TROP, BMP, DIFF CBC, BNP, PTT #### [place] [address] [place] GFR/1.73 sq M.predicted MDRD (S/P/Bld) [Vol rate/Area] 3.096 mL/min/{1.73_m2} Normal The [facility] Comment on above: Performed By: #### H EPATIC, CK, PT, HS TROP, BMP, DIFF CBC, BNP, PTT #### [address] Glucose [Mass/Vol] 28 mg/dL Off scale low 70-100 The [facility] Comment on above: Result Comment: Crit ical Result Called to and read back by: MARLYS CONNER at: 09/08/2023 10:59:09 by:BRENNAN Random Glucose Reference Range is dependent on time and content of last meal. Glucose of more than 200 mg/dL in a nonstressed, ambulatory subject supports the diagnosis of Diabetes Mellitus. ADA recommended reference range Performed By: #### H EPATIC, CK, PT, HS TROP, BMP, DIFF CBC, BNP, PTT #### [address] Potassium [Moles/Vol] 3.7 mmol/L Normal 3.5-5.1 The [facility] Comment on above: Performed By: #### H EPATIC, CK, PT, HS TROP, BMP, DIFF CBC, BNP, PTT #### [address] Sodium [Moles/Vol] 117 mmol/L Off scale low 136-145 The [facility] Comment on above: Result Comment: Crit ical Result Called to and read back by: MARLYS CONNER at: 09/08/2023 10:59:09 by:BRENNAN Performed By: #### H EPATIC, CK, PT, HS TROP, BMP, DIFF CBC, BNP, PTT #### [address] Urea nitrogen [Mass/Vol] 69 mg/dL High 7-25 The [facility] Comment on above: Performed By: #### H EPATIC, CK, PT, HS TROP, BMP, DIFF CBC, BNP, PTT #### [address] Basophils Auto (Bld) [#/Vol] Ordered By: Tone Martini on 09-08-2023 Basophils (Bld) [#/Vol] N/A F [facility] Basophils/100 WBC Auto (Bld) Ordered By: Tone Martini on 09-08-2023 Basophils/100 WBC (Bld) N/A F [facility] Bilirubin.direct [Mass/volum e] in Serum or PlasmaOrdered By: Tone Martini on 09-08-2023 Bilirubin.direct [Mass/Vol] 0.60 mg/dL High 0.03-0.18 [facility] Bilirubin.total [Mass/volume ] in Serum or PlasmaOrdered By: Tone Martini on 09-08-2023 Bilirubin [Mass/Vol] 1.1 mg/dL 0.3-1.0 [facility] Blood Cultureon 09-08-2023 Bacteria identified Cx Nom (Bld) NO GROWTH 5 DAYS PERFORMED BY: [place] [address] PATHOLOGIST QI SPECIALIST ESTRADA GUZMAN M.D. Normal The [facility] Comment on above: Performed By: #### H EPATIC, CK, PT, HS TROP, BMP, DIFF CBC, BNP, PTT #### [address] Bacteria identified Cx Nom (Bld) Blood Culture Results No Growth 5 Days PERFORMED BY: [place] [address] PATHOLOGIST QI SPECIALIST ESTRADA GUZMAN M.D. Normal The [facility] Comment on above: Performed By: #### H EPATIC, CK, PT, HS TROP, BMP, DIFF CBC, BNP, PTT #### [address] Blood toxic granulation dete ction by light microscopyOrdered By: Tone Martini on 09-08-2023 Toxic granules LM Ql (Bld) Marked [facility] CT abdomen pelvis wo conon 0 09-08-2023 CT abdomen pelvis wo con [facility] Main [place] [address] [place] [address] CT Scan Report Signed Patient: Winnie Cai MR#: [id number] 71 : 1985 Acct:[id number] Age/Sex: 38 / F ADM Date: 09/08/23 Loc: ER Room: Type: [facility] ER Attending Dr: Copies to: Tone Martini DO Ordering Provider: Tone Martini DO Date of Service: 09/08/23 CT/CT abdomen pelvis wo con: dehydration CT abdomen pelvis wo con 09/08/2023 10:36 AM SIGNS AND SYMPTOMS: Generalized weakness, hypoglycemia, history of liver transplant. Patient on peritoneal dialysis. TECHNIQUE: Multidetector ct axial images of the abdomen and pelvis were obtained without IV contrast. Multiplanar reformats were performed and reviewed to further define anatomy and possible pathology. CT was performed with one or more of the following dose reduction techniques: Automated exposure control, adjustment of the mA and/or kV according to patient size, or use of iterative reconstruction technique. COMPARISON: 01/08/2022 FINDINGS: Lower Chest: Atherosclerotic changes are noted in the coronary arteries. ABDOMEN: Liver: Postsurgical changes are noted in the right upper quadrant consistent with a history of liver transplant. Bile Ducts: Normal caliber. Gallbladder: Previously removed Pancreas: Within normal limits. Spleen: Surgical clips are noted in the left upper quadrant. Multiple splenules are present. Correlation with clinical history of previous splenic injury is recommended. Adrenals: Within normal limits. Kidneys: Simple cysts are noted in the renal collecting systems requiring no further follow-up. Pelvis: Reproductive Organs: No pelvic masses. Ureters: Within normal limits. Bladder: Within normal limits. Bowel: There is diffuse wall thickening in the colon with fat stranding suggesting colitis. This may be infectious or inflammatory. Mesenteric Lymph Nodes: No enlarged mesenteric lymph nodes. Peritoneum: There is free fluid within the abdomen. There is a peritoneal dialysis catheter in the left lower quadrant. Vessels: within normal limits Retroperitoneum: Within normal limits. Abdominal Wall: There is a fat-containing ventral wall hernia the left midline. There is edema/anasarca in the right chest wall and flank. Bones: Degenerative changes are noted in the lumbar spine. CT/CT abdomen pelvis wo con IMPRESSION: There is diffuse wall thickening within the colon with accompanying pericolonic fat stranding. This is consistent with colitis which may be infectious or inflammatory. A small amount of peritoneal free fluid is noted with a peritoneal dialysis catheter in the left lower quadrant. There is extensive previous liver transplant. Additional chronic findings are noted, as above. Impression dictated by: Sp Germain M.D.09/08/2023 12:10 PM Dictation Location: [place] [address] Transcribed By: KEN 09/08/23 1210 Dictated By: Sp Germain II, MD 09/08/23 1203 Signed By: 09/08/23 1210 Normal [facility] CT head/brain wo conon 09-07 CT head/brain wo con [facility] [place] [address] CT Scan Report Signed Patient: Winnie Cai MR#: [id number] 71 : 1985 Acct:[id number] Age/Sex: 38 / F ADM Date: 09/08/23 Loc: ER Room: Type: [facility] ER Attending Dr: Copies to: Tone Martini DO Ordering Provider: Tone Martini DO Date of Service: 09/08/23 CT/CT head/brain wo con: ams CT head/brain wo con 09/08/2023 10:36 AM SIGNS AND SYMPTOMS: Generalized weakness, hypoglycemia TECHNIQUE:Multi-detector CT axial slices of the brain were obtained without IV contrast. CT was performed with one or more of the following dose reduction techniques: Automated exposure control, adjustment of the mA and/or kV according to patient size, or use of iterative reconstruction technique. COMPARISON: None. FINDINGS: There is no shift of the midline structures, acute intracranial bleeding, mass effects, or evidence of acute ischemia. The ventricular system is normal in size. The brainstem and the cerebellum are unremarkable. The visualized intraorbital contents and the infratemporal soft tissues show no acute abnormality. Mild mucosal thickening is noted in the left maxillary sinus. The osseous structures in the skull base and the calvarium show no abnormality. CT/CT head/brain wo con IMPRESSION: No acute intracranial pathology. Impression dictated by: Sp Germain M.D.09/08/2023 12:02 PM Dictation Location: [place] [address] Transcribed By: KEN 09/08/23 1202 Dictated By: Sp Germain II, MD 09/08/23 1157 Signed By: 09/08/23 1202 Normal [facility] Calcium [Mass/volume] in Ser um or PlasmaOrdered By: Tone Martini on 09-08-2023 Calcium [Mass/Vol] 7.2 mg/dL 8.6-10.3 [facility] Carbon dioxide, total [Moles /volume] in Serum or PlasmaOrdered By: Tone Martini on 09-08-2023 CO2 [Moles/Vol] 20.6 mmol/L 21.0-31.0 [facility] Catheter Tip Cultureon 09-07 Catheter Tip Culture Comment peritoneal catheter tip for culture andsensitivity No Growth 2 Days PERFORMED BY: [place] [address] PATHOLOGIST QI SPECIALIST ESTRADA GUZMAN M.D. Normal The [facility] Comment on above: Performed By: #### H EPATIC, CK, PT, HS TROP, BMP, DIFF CBC, BNP, PTT #### [facility] [address] Catheter tip culture and sen sitivityOrdered By: Hal Mejia on 09-08-2023 Bacteria identified Cx Nom (Catheter tip) No Growth 2 Days [facility] Chloride [Moles/volume] in S jie or PlasmaOrdered By: Tone Martini on 09-08-2023 Chloride [Moles/Vol] 78 mmol/L 98-107 [facility] Creatine Kinaseon 09-08-2023 CK [Catalytic activity/Vol] 4632 U/L High 30-223 The [facility] Comment on above: Performed By: #### C BCNO #### [facility] [address] [place] [address] Creatine kinase [Enzymatic a ctivity/volume] in Serum or PlasmaOrdered By: Tone Martnii on 09-08-2023 CK [Catalytic activity/Vol] 4632 U/L 30-223 [facility] Creatinine [Mass/volume] in Serum or PlasmaOrdered By: Tone Martini on 09-08-2023 Creatinine [Mass/Vol] 13.93 mg/dL 0.60-1.20 [facility] Diff and CBCon 09-08-2023 Anisocytosis Ql (Bld) Slight Normal [facility] Comment on above: Performed By: #### C BCNO #### [address] Erythrocyte distribution width (RBC) [Ratio] 16.5 % High 11.9-15.3 [facility] Comment on above: Performed By: #### C BCNO #### [address] Hematocrit (Bld) [Volume fraction] 22.9 % Low 34.0-46.4 [facility] Comment on above: Performed By: #### C BCNO #### [address] Hemoglobin (Bld) [Mass/Vol] 7.3 g/dL Low 11.8-15.4 [facility] Comment on above: Performed By: #### C BCNO #### [address] Hypochromasia Slight Normal [facility] Comment on above: Performed By: #### C BCNO #### [address] Lymphocytes/100 WBC (Bld) 1 % Low 18-42 [facility] Comment on above: Performed By: #### C BCNO #### [address] MCH (RBC) [Entitic mass] 28.5 pg Normal 24.7-34.3 [facility] Comment on above: Performed By: #### C BCNO #### [address] MCV (RBC) [Entitic vol] 89.1 fL Normal 80-100 T he [facility] Comment on above: Performed By: #### C BCNO #### [address] [address] [place] Mean Corpuscular HGB Conc 32.0 g/dL Normal 32.0-35.0 [facility] Comment on above: Performed By: #### C BCNO #### [address] Monocyte Distribution Width Not performed Normal 0.00-20.00 [facility] Comment on above: Result Comment: Unab le to calculate MDW because the Absolute Monocyte Count is <0.8. Performed By: #### C BCNO #### [address] Monocytes/100 WBC (Bld) 3 % Normal 2-11 T he [facility] Comment on above: Performed By: #### C BCNO #### [address] Platelet Estimate Normal Normal Normal [facility] Comment on above: Performed By: #### C BCNO #### [address] Platelet mean volume (Bld) [Entitic vol] 7.9 fL Normal 6.3-10.7 [facility] Comment on above: Result Comment: PERF ORMED BY: [place] [address] PATHOLOGIST QI SPECIALIST ESTRADA GUZMAN M.D. Performed By: #### C BCNO #### [address] Platelet Morphology Normal Normal Normal [facility] Comment on above: Result Comment: PERF ORMED BY: [place] [address] PATHOLOGIST QI SPECIALIST ESTRADA GUZMAN M.D. Performed By: #### C BCNO #### [address] Platelets (Bld) [#/Vol] 258 10*3/uL Normal 150-450 [facility] Comment on above: Performed By: #### C BCNO #### [address] Polychromasia Slight Normal [facility] Comment on above: Performed By: #### C BCNO #### [address] RBC (Bld) [#/Vol] 2.57 10*6/uL Low 3.60-5.00 [facility] Comment on above: Performed By: #### C BCNO #### [address] Segmented neutrophils/100 WBC (Bld) 96 % High 50-70 [facility] Comment on above: Performed By: #### C BCNO #### [address] Target Cells Slight Normal [facility] Comment on above: Performed By: #### C BCNO #### [address] Toxic Granulation Marked Normal [facility] Comment on above: Performed By: #### C BCNO #### [address] Toxic Vacuolation Slight Normal [facility] Comment on above: Performed By: #### C BCNO #### [address] WBC (Bld) [#/Vol] 40.3 10*3/uL High 3.8-11.6 [facility] Comment on above: Performed By: #### C BCNO #### [address] ECG 12 lead ECGon 09-08-2023 ECG 12 lead ECG [facility] Main [place] [address] [place] [address] Electrocardiograph Report Signed Patient: Winnie Cai MR#: [id number] 71 : 1985 Acct:[id number] Age/Sex: 38 / F ADM Date: 09/08/23 Loc: Room: [address] [place] [address] Type: ADM IN Attending Dr: Hortensia Cordero MD Ordering Provider: Tone Martini DO Date of Service: 09/08/23 ECG/ECG 12 lead ECG: Weakness Copies to: Test Reason : Blood Pressure : 119/055 mmHG Vent. Rate : 092 BPM Atrial Rate : 092 BPM P-R Int : 172 ms QRS Dur : 094 ms QT Int : 404 ms P-R-T Axes : 039 014 009 degrees QTc Int : 499 ms Normal sinus rhythm Prolonged QT Abnormal ECG No previous ECGs available Confirmed by Tone Martini DO ([id number]) on 09/08/2023 3:39:26 PM Referred By: Electronically Signed By:Tone Martini DO Transcribed By: MUS Signed By Tone Martini DO 4 1539 Normal [facility] Eosinophils Auto (Bld) [#/Vo l]Ordered By: Tone Martini on 09-08-2023 Eosinophils (Bld) [#/Vol] N/A [facility] Eosinophils/100 WBC Auto (Bl d)Ordered By: Tone Martini on 09-08-2023 Eosinophils/100 WBC (Bld) N/A [facility] Erythrocyte distribution wid th Auto (RBC) [Ratio]Ordered By: Tone Martini on 09-08-2023 Erythrocyte distribution width (RBC) [Ratio] 16.5 % 11.9-15.3 [facility] Ethanol [Mass/volume] in Ser um or PlasmaOrdered By: Hortensia Cordero on 09-08-2023 Ethanol [Mass/Vol] mg/dL [facility] Ethanol [Mass/Vol] TNP [facility] Comment on above: Test not performed Ethyl Alcohol Profileon 08-24 Ethanol [Mass/Vol] mg/dL Normal [facility] Comment on above: Order Comment: Comme nt two units on hold for OR Transfuse now? N Transfuse now? Y Number of units to transfuse now? 1 Performed By: #### E LIDA ####[facility] [id number] [place] [address] [facility] Percent Ethanol Not performed Normal [facility] Comment on above: Order Comment: Comme nt two units on hold for OR Transfuse now? N Transfuse now? Y Number of units to transfuse now? 1 Result Comment: PERF ORMED BY: [facility] [address] [place] [id number] PATHOLOGIST QI SPECIALIST ESTRADA GUZMAN M.D. Performed By: #### E LIDA ####[facility] [id number] [place] [address] [facility] Ferritinon 09-08-2023 Ferritin [Mass/Vol] 874.4 ng/mL High 11.0-306.8 [facility] Comment on above: Performed By: #### V [id number], CBCNO, BMP, GIBSON, FE and TIBC ####[facility] [id number] [place] [address] [facility] Ferritin [Mass/volume] in Se rum or PlasmaOrdered By: Hortensia Cordero on 09-08-2023 Ferritin [Mass/Vol] 874.4 ng/mL High 11.0-306.8 [facility] Folate [Mass/volume] in Seru m or PlasmaOrdered By: Hortensia Cordero on 09-08-2023 Folate [Mass/Vol] 5.7 ng/mL Low >5.9 [facility] Comment on above: Folate reference ran ge: >5.9 ng/mlThe WHO technical consultation on folate and vitamin [id number] has determined that folate concentrations lessthan 4 ng/ml are considered deficient. Globulin Calc (S) [Mass/Vol] Ordered By: Tone Martini on 09-08-2023 Globulin (S) [Mass/Vol] 2.8 g/dL [facility] Glucose Glucometer (BldC) [M ass/Vol]Ordered By: Tone Martini on 09-08-2023 Glucose [Mass/Vol] 173 mg/dL [facility] Comment on above: Random Glucose Refer ence Range is dependent on time and content of last meal. Glucose of more than 200 mg/dL in a nonstressed, ambulatory subject supports the diagnosis of Diabetes Mellitus. Glucose Poct Glucometerson 0 09-08-2023 Glucose [Mass/Vol] 88 mg/dL Normal [facility] Comment on above: Result Comment: [place] om Glucose Reference Range is dependent on time and content of last meal. Glucose of more than 200 mg/dL in a nonstressed, ambulatory subject supports the diagnosis of Diabetes Mellitus. PERFORMED BY: [place] [address] PATHOLOGIST QI SPECIALIST ESTRADA GUZMAN M.D. Performed By: #### G LULS ####Point of Care testing, Glucose [Mass/Vol] 77 mg/dL Normal [facility] Comment on above: Result Comment: [place] Glucose Reference Range is dependent on time and content of last meal. Glucose of more than 200 mg/dL in a nonstressed, ambulatory subject supports the diagnosis of Diabetes Mellitus. PERFORMED BY: [place] [address] PATHOLOGIST QI SPECIALIST ESTRADA GUZMAN M.D. Performed By: #### C BCNO #### [address] Glucose [Mass/Vol] 147 mg/dL Normal [facility] Comment on above: Result Comment: [facility][note 3] Glucose Reference Range is dependent on time and content of last meal. Glucose of more than 200 mg/dL in a nonstressed, ambulatory subject supports the diagnosis of Diabetes Mellitus. PERFORMED BY: [place] [address] PATHOLOGIST QI SPECIALIST ESTRADA GUZMAN M.D. Performed By: #### C BCNO #### [place] [address] [place] Glucose [Mass/Vol] 173 mg/dL Normal [facility] Comment on above: Result Comment: [facility][note 3] Glucose Reference Range is dependent on time and content of last meal. Glucose of more than 200 mg/dL in a nonstressed, ambulatory subject supports the diagnosis of Diabetes Mellitus. PERFORMED BY: [place] [address] PATHOLOGIST QI SPECIALIST ESTRADA GUZMAN M.D. Performed By: #### H EPATIC, CK, PT, HS TROP, BMP, DIFF CBC, BNP, PTT #### [place] [id number] [place] Glucose [Mass/Vol] 156 mg/dL Normal [facility] Comment on above: Result Comment: [place] Glucose Reference Range is dependent on time and content of last meal. Glucose of more than 200 mg/dL in a nonstressed, ambulatory subject supports the diagnosis of Diabetes Mellitus. PERFORMED BY: [place] [address] PATHOLOGIST QI SPECIALIST ESTRADA GUZMAN M.D. Performed By: #### G CATARINO ####Point of Care testing, Glucose [Mass/volume] in Ser um or PlasmaOrdered By: Tone Martini on 09-08-2023 Glucose [Mass/Vol] 28 mg/dL 70-100 [facility] Comment on above: Critical Result Call ed to and read back by: MARLYS CONNER at: 09/08/2023 10:59:09 by:RAULITO recommended reference rangeRandom Glucose Reference Range is dependent on time and content of last meal. Glucose of more than 200 mg/dL in a nonstressed, ambulatory subject supports the diagnosis of Diabetes Mellitus. Hematocrit Auto (Bld) [Volum e fraction]Ordered By: Tone Martini on 09-08-2023 Hematocrit (Bld) [Volume fraction] 22.9 % 34.0-46.4 [facility] Hemoglobin [Mass/volume] in BloodOrdered By: Tone Martini on 09-08-2023 Hemoglobin (Bld) [Mass/Vol] 7.3 g/dL 11.8-15.4 [facility] Hemogram CBC Without Diffon 09-08-2023 Erythrocyte distribution width (RBC) [Ratio] 16.3 % High 11.9-15.3 [facility] Comment on above: Performed By: #### B MP #### [facility] [address] Hematocrit (Bld) [Volume fraction] 19.4 % Off scale low 34.0-46.4 [facility] Comment on above: Result Comment: Crit ical value result called at 1944 on 09/08/23 Performed By: #### B MP #### [facility] [address] Hemoglobin (Bld) [Mass/Vol] 6.2 g/dL Low 11.8-15.4 [facility] Comment on above: Performed By: #### B MP #### [address] MCH (RBC) [Entitic mass] 28.3 pg Normal 24.7-34.3 [facility] Comment on above: Performed By: #### B MP #### [address] MCV (RBC) [Entitic vol] 88.2 fL Normal 80-100 T he [facility] Comment on above: Performed By: #### B MP #### [address] Mean Corpuscular HGB Conc 32.1 g/dL Normal 32.0-35.0 [facility] Comment on above: Performed By: #### B MP #### [address] Platelet mean volume (Bld) [Entitic vol] 7.8 fL Normal 6.3-10.7 [facility] Comment on above: Result Comment: PERF ORMED BY: [place] [address] PATHOLOGIST QI SPECIALIST ESTRADA GUZMAN M.D. Performed By: #### B MP #### [address] Platelets (Bld) [#/Vol] 207 10*3/uL Normal 150-450 [facility] Comment on above: Performed By: #### B MP #### [address] RBC (Bld) [#/Vol] 2.20 10*6/uL Low 3.60-5.00 [facility] Comment on above: Performed By: #### B MP #### [address] WBC (Bld) [#/Vol] 36.0 10*3/uL High 3.8-11.6 [facility] Comment on above: Performed By: #### B MP #### [address] Hepatic Panelon 09-08-2023 Albumin [Mass/Vol] 2.5 g/dL Low 3.5-5.7 [facility] Comment on above: Performed By: #### H EPATIC, CK, PT, HS TROP, BMP, DIFF CBC, BNP, PTT #### [address] Albumin/Globulin [Mass ratio] 0.9 {ratio} Normal [facility] Comment on above: Performed By: #### H EPATIC, CK, PT, HS TROP, BMP, DIFF CBC, BNP, PTT #### [address] ALP [Catalytic activity/Vol] 231 U/L High 34-104 [facility] Comment on above: Performed By: #### H EPATIC, CK, PT, HS TROP, BMP, DIFF CBC, BNP, PTT #### [address] ALT [Catalytic activity/Vol] 47 U/L Normal 7-52 [facility] Comment on above: Performed By: #### H EPATIC, CK, PT, HS TROP, BMP, DIFF CBC, BNP, PTT #### [address] AST [Catalytic activity/Vol] 162 U/L High 13-39 [facility] Comment on above: Performed By: #### H EPATIC, CK, PT, HS TROP, BMP, DIFF CBC, BNP, PTT #### [address] Bilirubin [Mass/Vol] 1.1 mg/dL High 0.3-1.0 [facility] Comment on above: Performed By: #### H EPATIC, CK, PT, HS TROP, BMP, DIFF CBC, BNP, PTT #### [address] Bilirubin,Indirect 0.5 mg/dL Normal [facility] Comment on above: Performed By: #### H EPATIC, CK, PT, HS TROP, BMP, DIFF CBC, BNP, PTT #### [facility] [address] Bilirubin.indirect [Mass/Vol] 0.60 mg/dL High 0.03-0.18 [facility] Comment on above: Performed By: #### H EPATIC, CK, PT, HS TROP, BMP, DIFF CBC, BNP, PTT #### [facility] [address] Globulin (S) [Mass/Vol] 2.8 g/dL Normal T he [facility] Comment on above: Performed By: #### H EPATIC, CK, PT, HS TROP, BMP, DIFF CBC, BNP, PTT #### [facility] [address] Protein [Mass/Vol] 5.3 g/dL Low 6.4-8.9 [facility] Comment on above: Performed By: #### H EPATIC, CK, PT, HS TROP, BMP, DIFF CBC, BNP, PTT #### [facility] [address] Hypochromia LM Ql (Bld)Order ed By: Tone Martini on 09-08-2023 Hypochromia Ql (Bld) Slight [facility] INR in Platelet poor plasma by Coagulation assayOrdered By: Tone Martini on 09-08-2023 INR Coag (PPP) [Relative time] 1.4 {INR} [facility] Comment on above: INR Therapeutic Rang e A) Pre- and Peroperative OAT started two weeks before surgery. NOT HIP SURGERY: 1.5 - 2.5 HIP SURGERY: 2 - 3B) Primary and secondary prevention of venous THROMBOSIS: 2 - 3C) Active venous thrombosis, pulmonary embolismand prevention of recurrent venous thrombosis: 2 - 3D) Prevention of arterial thromboembolismincluding patients with mechanical heart valves: 3 - 4.5 Iron [Mass/volume] in Serum or PlasmaOrdered By: Hortensia Cordero on 09-08-2023 Iron [Mass/Vol] 74 ug/dL 50-212 [facility] Iron and TIBC Profileon 08-24 % Iron Saturation Not performed Normal 20-50 [facility] Comment on above: Performed By: #### V [id number], CBCNO, BMP, GIBSON, FE and TIBC ####[address] Iron [Mass/Vol] 74 ug/dL Normal 50-212 [facility] Comment on above: Performed By: #### V [id number], CBCNO, BMP, GIBSON, FE and TIBC ####[address] Total Iron Binding Capacity Not performed Normal 255-450 [facility] Comment on above: Performed By: #### V [id number], CBCNO, BMP, GIBSON, FE and TIBC ####[address] Transferrin [Mass/Vol] mg/dL Low 203-362 [facility] Comment on above: Performed By: #### V [id number], CBCNO, BMP, GIBSON, FE and TIBC ####[address] Iron binding capacity [Mass/ volume] in Serum or PlasmaOrdered By: Hortensia Cordero on 09-08-2023 Iron binding capacity [Mass/Vol] [facility] Comment on above: Test not performed Iron saturation [Mass Fracti on] in Serum or PlasmaOrdered By: Hortensia Montessosaba on 09-08-2023 Iron saturation [Mass fraction] [facility] Comment on above: Test not performed Lactate [Moles/volume] in Se rum or PlasmaOrdered By: Tone Martini on 09-08-2023 Lactate [Moles/Vol] 1.1 mmol/L 0.5-2.2 [facility] Lactic Acidon 09-08-2023 Lactate [Moles/Vol] 1.1 mmol/L Normal 0.5-2.2 [facility] Comment on above: Result Comment: PERF ORMED BY: [facility] [address] [place] [address] PATHOLOGIST QI SPECIALIST ESTRADA GUZMAN M.D. Performed By: #### H EPATIC, CK, PT, HS TROP, BMP, DIFF CBC, BNP, PTT #### [facility] [address] Leukocytes [#/volume] correc [place] for nucleated erythrocytes in Blood by Automated counOrdered By: Tone Martini on 09-08-2023 WBC corrected for nucl RBC Auto (Bld) [#/Vol] 40.3 10*3/uL 3.8-11.6 [facility] Lymphocytes Auto (Bld) [#/Vo l]Ordered By: Tone Martini on 09-08-2023 Lymphocytes (Bld) [#/Vol] N/A [facility] Lymphocytes/100 WBC Auto (Bl d)Ordered By: Tone Martini on 09-08-2023 Lymphocytes/100 WBC (Bld) N/A [facility] Lymphocytes/100 WBC Manual c nt (Bld)Ordered By: Tone Martini on 09-08-2023 Lymphocytes/100 WBC (Bld) 1 % Low 18-42 [facility] MCH Auto (RBC) [Entitic mass ]Ordered By: Tone Martini on 09-08-2023 MCH (RBC) [Entitic mass] 28.5 pg 24.7-34.3 [facility] MCHC Auto (RBC) [Mass/Vol]Or dered By: Tone Martini on 09-08-2023 MCHC (RBC) [Mass/Vol] 32.0 g/dL 32.0-35.0 [facility] MCV Auto (RBC) [Entitic vol] Ordered By: Tone Martini on 09-08-2023 MCV (RBC) [Entitic vol] 89.1 fL 80-[address] [facility] Monocyte distribution width [Entitic volume] in Blood by AutomatedOrdered By: Tone Martini on 09-08-2023 Monocyte distribution width Auto (Bld) [Entitic vol] Test not performed % 0.00-20.00 [facility] Comment on above: Unable to calculate MDW because the Absolute Monocyte Count is <0.8. Monocytes Auto (Bld) [#/Vol] Ordered By: Tone Martini on 09-08-2023 Monocytes (Bld) [#/Vol] N/A F [facility] Monocytes/100 WBC Auto (Bld) Ordered By: Tone Martini on 09-08-2023 Monocytes/100 WBC (Bld) N/A F [facility] Monocytes/100 WBC Manual cnt (Bld)Ordered By: Tone Martini on 09-08-2023 Monocytes/100 WBC (Bld) 3 % 2-[address] [facility] Natriuretic peptide B [Mass/ Vol]Ordered By: Tone Martini on 09-08-2023 Natriuretic peptide B (Bld) [Mass/Vol] 130.0 pg/mL High 5-100 [facility] Neutrophils Auto (Bld) [#/Vo l]Ordered By: Tone Martini on 09-08-2023 Neutrophils (Bld) [#/Vol] N/A [facility] Neutrophils/100 WBC Auto (Bl d)Ordered By: Tone Martini on 09-08-2023 Neutrophils/100 WBC (Bld) N/A [facility] No Panel InformationOrdered By: Tone Martini on 09-08-2023 Estimated GFR (CKD-EPI) 3.096 mL/Min [facility] Creatinine Clearance (Chem N/A [facility] Nucleated erythrocytes [Pres ence] in Blood by Automated countOrdered By: Tone Martini on 09-08-2023 Nucleated RBC Auto Ql (Bld) N/A [facility] Partial Thromboplastin Timeo n 09-08-2023 aPTT Coag (Bld) [Time] 35.4 s Normal 25.1-36.5 Th e [facility] Comment on above: Result Comment: A he matocrit value greater than 55% may lead to inaccurate results in coagulation testing. Patients having hematocrit values >55% require a special collection tube for coagulation studies. Please contact the laboratory at [phone] for redraw instructions. PERFORMED BY: [place] [id number] PATHOLOGIST QI SPECIALIST ESTRADA GUZMAN M.D. Performed By: #### H EPATIC, CK, PT, HS TROP, BMP, DIFF CBC, BNP, PTT #### [address] Platelet adequacy [Presence] in Blood by Light microscopyOrdered By: Tone Martini on 09-08-2023 Platelets LM Ql (Bld) Normal Normal [facility] Platelet mean volume Auto (B ld) [Entitic vol]Ordered By: Tone Martini on 09-08-2023 Platelet mean volume (Bld) [Entitic vol] 7.9 fL 6.3-10.7 [facility] Platelet morphology finding [Identifier] in BloodOrdered By: Tone Martini on 09-08-2023 Platelet morphology finding Nom (Bld) Normal Normal [facility] Platelets Auto (Bld) [#/Vol] Ordered By: Toen Martini on 09-08-2023 Platelets (Bld) [#/Vol] 258 10*3/uL 150-450 [facility] Polychromasia [Presence] in Blood by Light microscopyOrdered By: Tone Martini on 09-08-2023 Polychromasia LM Ql (Bld) Slight [facility] Potassium [Moles/volume] in Serum or PlasmaOrdered By: Tone Martini on 09-08-2023 Potassium [Moles/Vol] 3.7 mmol/L 3.5-5.1 [facility] Protein [Mass/volume] in Ser um or PlasmaOrdered By: Tone Martini on 09-08-2023 Protein [Mass/Vol] 5.3 g/dL 6.4-8.9 [facility] Prothrombin Time INRon 09-07 INR Coag (PPP) [Relative time] 1.4 {INR} Normal [facility] Comment on above: Result Comment: INR Therapeutic Range A) Pre- and Peroperative OAT started two weeks before surgery. NOT HIP SURGERY: 1.5 - 2.5 HIP SURGERY: 2 - 3 B) Primary and secondary prevention of venous THROMBOSIS: 2 - 3 C) Active venous thrombosis, pulmonary embolism and prevention of recurrent venous thrombosis: 2 - 3 D) Prevention of arterial thromboembolism including patients with mechanical heart valves: 3 - 4.5 Performed By: #### H EPATIC, CK, PT, HS TROP, BMP, DIFF CBC, BNP, PTT #### [facility] [address] [place] [id number] [facility] PT Coag (PPP) [Time] 15.9 s High 9.0-12.9 [facility] Comment on above: Result Comment: A he matocrit value greater than 55% may lead to inaccurate results in coagulation testing. Patients having hematocrit values >55% require a special collection tube for coagulation studies. Please contact the laboratory at [phone] for redraw instructions. Performed By: #### H EPATIC, CK, PT, HS TROP, BMP, DIFF CBC, BNP, PTT #### [facility] [address] Prothrombin time (PT)Ordered By: Tone Martini on 09-08-2023 PT Coag (PPP) [Time] 15.9 s 9.0-12.9 [facility] Comment on above: A hematocrit value g reater than 55% may lead to inaccurate results in coagulation testing. Patients having hematocrit values >55% require a special collection tube for coagulation studies. Please contact the laboratory at [phone] for redraw instructions. RBC Auto (Bld) [#/Vol]Ordere d By: Tone Martini on 09-08-2023 RBC (Bld) [#/Vol] 2.57 10*6/uL 3.60-5.00 [facility] RBC morphologyOrdered By: Farhat Martini on 09-08-2023 RBC morphology finding Nom (Bld) N/A [facility] Segmented neutrophils/100 WB C Manual cnt (Bld)Ordered By: Tone Martini on 09-08-2023 Segmented neutrophils/100 WBC (Bld) 96 % High 50-70 [facility] Serum or plasma albumin/glob ulin mass ratioOrdered By: Tone Martini on 09-08-2023 Albumin/Globulin [Mass ratio] 0.9 {ratio} [facility] Serum or plasma anion gap de terminationOrdered By: Tone Martini on 09-08-2023 Anion gap [Moles/Vol] 22.1 mmol/L 6.0-15.0 [facility] Serum or plasma non-glucuron idated bilirubin measurement (mass/volume)Ordered By: Tone Martini on 09-08-2023 Bilirubin.indirect [Mass/Vol] 0.5 mg/dL [facility] Sodium [Moles/volume] in Ser um or PlasmaOrdered By: Tone Martini on 09-08-2023 Sodium [Moles/Vol] 117 mmol/L 136-145 [facility] Comment on above: Critical Result Call ed to and read back by: MARLYS CONNER at: 09/08/2023 10:59:09 by:KB Target cellsOrdered By: Sundeep Martini on 09-08-2023 Target cells LM Ql (Bld) Slight [facility] Toxic leukocyte vacuolation detectionOrdered By: Tone Martini on 09-08-2023 Leukocyte toxic vacuoles LM Ql (Bld) Slight [facility] Transferrin [Mass/volume] in Serum or PlasmaOrdered By: Hortensia Cordero on 09-08-2023 Transferrin [Mass/Vol] mg/dL Low 203-362 [facility] Troponin I High Sensitivityo n 09-08-2023 Troponin I High Sensitivity 34.7 pg/mL High 0.0-15.0 [facility] Comment on above: Result Comment: PERF ORMED BY: [place] [address] PATHOLOGIST QI SPECIALIST ESTRADA GUZMAN M.D. Performed By: #### C BCNO #### [address] Troponin I.cardiac [Mass/vol ume] in Serum or Plasma by Detection limit <= 0.01 ng/Ordered By: Tone Martini on 09-08-2023 Troponin I.cardiac DL <= 0.01 ng/mL [Mass/Vol] 34.7 pg/mL High 0.0-15.0 [facility] Urea nitrogen [Mass/volume] in Serum or PlasmaOrdered By: Tone Martini on 09-08-2023 Urea nitrogen [Mass/Vol] 69 mg/dL 7-25 [facility] Vit. B12/Folate Profileon Cobalamin (Vitamin B12) [Mass/Vol] 3929 pg/mL High 180-914 [facility] Comment on above: Performed By: #### V [id number], CBCNO, BMP, GIBSON, FE and TIBC ####[facility] [id number] Folate 5.7 ng/mL Low >5.9 [facility] Comment on above: Result Comment: Vijaya te reference range: >5.9 ng/ml The WHO technical consultation on folate and vitamin b12 deficiencies has determined that folate concentrations less than 4 ng/ml are considered deficient. PERFORMED BY: [place] [address] PATHOLOGIST QI SPECIALIST ESTRADA GUZMAN M.D. Performed By: #### V [id number], CBCNO, BMP, GIBSON, FE and TIBC ####[facility] [id number] Vitamin B12 ser/plasOrdered By: Hortensia Cordero on 09-08-2023 Cobalamin (Vitamin B12) [Mass/Vol] 3929 pg/mL High 180-914 [facility] WBC Auto (Bld) [#/Vol]Ordere d By: Tone Martini on 09-08-2023 WBC (Bld) [#/Vol] 40.3 10*3/uL 3.8-11.6 [facility] XR chest 1V portableon 09-07 XR chest 1V portable [facility] [place] [address] XRay Report Signed Patient: Winnie Cai MR#: [id number] : 1985 Acct:[id number] Age/Sex: 38 / F ADM Date: 09/08/23 Loc: ER Room: Type: [facility] ER Attending Dr: Copies to: Tone Martini DO Ordering Provider: Tone Martini DO Date of Service: 09/08/23 XR/XR chest 1V portable: Weakness XR chest 1V portable 09/08/2023 10:03 AM SIGNS AND SYMPTOMS: Generalized weakness, right shoulder fracture PROTOCOL: Frontal radiograph of the chest COMPARISON: None FINDINGS: The trachea is midline. The heart and mediastinal structures are within normal limits. The lung parenchyma is clear. There is a fracture of the head and neck of the proximal humerus on the right. Surgical clips are noted at the base of the neck on the left. Multiple surgical clips are noted in the upper abdomen. XR/XR chest 1V portable IMPRESSION: No acute cardiopulmonary pathology. There is a fracture of the head and neck of the proximal humerus on the right. Impression dictated by: Sp Germain M.D.09/08/2023 10:25 AM Dictation Location: [facility]12 Transcribed By: [facility] 09/08/23 1025 Dictated By: Sp Germain II, MD 09/08/23 1024 Signed By: 09/08/23 1025 Normal [facility] CNPN Telephone (HEMTSA) -------- WINNIE CAI ([id number]) 1985 F Date Time Provider Department 10/30/22 MIKEL QUINTANILLA During your visit today, we recorded the following information about you: Mikel Quintanilla RN 10/30/2022 3:20 PM Signed ----- Message from Roberto Pollack MD sent at 10/30/2022 2:57 PM EDT ----- Please inform the patient that 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 No need for further intervention. Thanks B Mikel Quintanilla RN 10/30/2022 3:21 PM Signed Pt aware of ELDER message and denies any additional questions, needs or concerns at this time. Mikel Quintanilla RN Allergies As of Date: 10/30/2022 Noted Allergy Reaction SHELLFISH CONTAINING PRODUCTS 01/13/2015 10 - Anaphylaxis FISH CONTAINING PRODUCTS 10/09/2013 16 - Unknown PENICILLINS 10/09/2013 4 - Hives 2 - Rash SULFA (SULFONAMIDE ANTIBIOTICS) 07/15/2022 4 - Hives SULFAMETHOXAZOLE 07/15/2022 4 - Hives SULFAMETHOXAZOLE-TRIMETH OPRIM 12/04/2014 2 - Rash TRIMETHOPRIM 07/15/2022 4 - Hives Date Reviewed: 10/08/2022 Reviewed by: Terra Estrada - Fully Assessed Reason for Visit: Results [95] Prescriptions as of 10/30/2022 - magnesium oxide (MAG-OX) 400 mg (241.3 mg magnesium) tablet Take 1 tablet by mouth once daily. - POTASSIUM ORAL Take by mouth. - potassium chloride ER (KLOR-CON) 20 mEq tablet Take 20 mEq by mouth once daily. - folic acid 1 mg tablet Take 2 tablets by mouth once daily. - ALPRAZolam (XANAX) 0.25 mg tablet Take 0.25 mg by mouth. - calcium acetate,phosphat bind, (PHOSLO) 667 mg capsule Calcium Acetate(Phosphat Bind) Active 50 MG PO 3X/Day with lunch,supper AND HS July 10, 2022 12:00am - escitalopram oxalate (LEXAPRO) 5 mg tablet Take 3 tablets by mouth once daily. - furosemide (LASIX) 40 mg tablet Take 40 mg by mouth. - levothyroxine (SYNTHROID) 75 mcg tablet Levothyroxine Active 75 MCG PO Daily July 31, 2020 12:00am - losartan (COZAAR) 25 mg tablet Take 25 mg by mouth. - metoprolol succinate ER (TOPROL XL) 25 mg 24 hr tablet Take 1 tablet by mouth once daily. - omeprazole (PRILOSEC) 20 mg capsule Omeprazole Active 20 MG PO Daily July 31, 2020 12:00am - ondansetron orally disintegrating (ZOFRAN ODT) 4 mg disintegrating tablet Ondansetron Active 4 MG PO Q8H July 10, 2022 12:00am - diphenhydrAMINE (BENADRYL) 25 mg tablet Take 25 mg by mouth. - cycloSPORINE modified (NEORAL,GENGRAF) 25 mg capsule Take 75 mg by mouth. 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 Carriers of this variant may have abnormal iron indices but overt disease is rare, except in the presence of other factors such as hepatotoxins. The sample is negative for the H63D and S65C variants. Genetic consultation and counseling of at risk family members regarding this laboratory testing may be considered as clinically appropriate. Methodology: Patient DNA is evaluated for C282Y (c.845G>A, p.Jcg182Cyf, NM_000410.3), H63D (c.187C>G, p.Eul44Wye, NM_000410.3) and S65C variant (c.193A>T, p.Njw48Deb, NM_000410.3) missense variants in the HFE gene (NM_000410.3, GRCh37(hg19)) by multiplex polymerase chain reaction (PCR) followed by melting curve analysis. Disclaimer: This test was developed and its performance characteristics determined by [facility] [place] ([facility]). It has not been cleared or approved by the FDA. [facility] is regulated under CLIA as certified to perform high- complexity testing. This test is used for clinical purposes. It should not be regarded as investigational or for research. Testing and interpretation performed at [facility], [address] [place] [address]. CLIA Number: [id number] As reviewed by Alexandra Adhikari MD, PhD Performed By: #### 1 4196-0, 96122-2 #### [facility] CLIA [id number] [address] [place] [id number] [place] [address] 10-15-2022 CNPN Telephone (HEMTSA) -------- WINNIE CAI ([id number]) 1985 F Date Time Provider Department 10/15/22 PIPPA FLORES During your visit today, we recorded the following information about you: Pippa Flores RN 10/15/2022 8:57 AM Signed ----- Message from Roberto Pollack MD sent at 10/14/2022 10:52 PM EDT ----- Please inform the patient that her ferritin levels are going up despite the fact she has not been receiving iron. I would like for her to come to our office to check HFE genes to rule out hemochromatosis. Schedule those to be done this week, and we will call her with results. If negative no need to follow-up. Pippa Flores RN 10/15/2022 9:00 AM Signed Left message to call back. JUNIOR Pegeuro RN 10/16/2022 8:53 AM Signed VM left with BRM message that he would like her to return for further testing this week. Phone # left to call to schedule. BRM/HM: Please order gene test as requested JUNIOR Conteh MD 10/16/2022 11:40 AM Signed Labs ordered. Thanks, B Allergies As of Date: 10/15/2022 Noted Allergy Reaction SHELLFISH CONTAINING PRODUCTS 01/13/2015 10 - Anaphylaxis FISH CONTAINING PRODUCTS 10/09/2013 16 - Unknown PENICILLINS 10/09/2013 4 - Hives 2 - Rash SULFA (SULFONAMIDE ANTIBIOTICS) 07/15/2022 4 - Hives SULFAMETHOXAZOLE 07/15/2022 4 - Hives SULFAMETHOXAZOLE-TRIMETH OPRIM 12/04/2014 2 - Rash TRIMETHOPRIM 07/15/2022 4 - Hives Date Reviewed: 10/08/2022 Reviewed by: Terra Estrada - Fully Assessed Reason for Visit: Results [95] Primary Visit Diagnosis:Iron overload [E83.19] Order(s):HFE (HEMOCHROMATOSIS) [SQHEMDNA] Order #: [id number] FUTURE Prescriptions as of 11/05/2022 - magnesium oxide (MAG-OX) 400 mg (241.3 mg magnesium) tablet Take 1 tablet by mouth once daily. - POTASSIUM ORAL Take by mouth. - potassium chloride ER (KLOR-CON) 20 mEq tablet Take 20 mEq by mouth once daily. - folic acid 1 mg tablet Take 2 tablets by mouth once daily. - ALPRAZolam (XANAX) 0.25 mg tablet Take 0.25 mg by mouth. - calcium acetate,phosphat bind, (PHOSLO) 667 mg capsule Calcium Acetate(Phosphat Bind) Active 50 MG PO 3X/Day with lunch,supper AND HS July 10, 2022 12:00am - escitalopram oxalate (LEXAPRO) 5 mg tablet Take 3 tablets by mouth once daily. - furosemide (LASIX) 40 mg tablet Take 40 mg by mouth. - levothyroxine (SYNTHROID) 75 mcg tablet Levothyroxine Active 75 MCG PO Daily July 31, 2020 12:00am - losartan (COZAAR) 25 mg tablet Take 25 mg by mouth. - metoprolol succinate ER (TOPROL XL) 25 mg 24 hr tablet Take 1 tablet by mouth once daily. - omeprazole (PRILOSEC) 20 mg capsule Omeprazole Active 20 MG PO Daily July 31, 2020 12:00am - ondansetron orally disintegrating (ZOFRAN ODT) 4 mg disintegrating tablet Ondansetron Active 4 MG PO Q8H July 10, 2022 12:00am - diphenhydrAMINE (BENADRYL) 25 mg tablet Take 25 mg by mouth. - cycloSPORINE modified (NEORAL,GENGRAF) 25 mg capsule Take 75 mg by mouth. - mycophenolate sodium DR (MYFORTIC) 180 mg EC tablet Problem List As Of Date: 10/15/2022 (None) Encounter Status:Closed by MIKEL QUINTANILLA on 11/05/22 Normal [facility] CBC W Auto Differential pane l (Bld)on 10-08-2022 Basophils (Bld) [#/Vol] 0.13 10*3/uL High <0.11 [facility] Comment on above: Order Comment: Speci men Type: BLOOD SPECIMEN Ordering Facility: [facility] Address: [address] [place] [address] Performed By: #### 5 0190-8, 2275-08, 2283-12 #### [facility] CLIA [id number] [address] [place] [address] [place] Basophils/100 WBC (Bld) 1.6 % Normal [facility] Comment on above: Order Comment: Speci men Type: BLOOD SPECIMEN Ordering Facility: [facility] Address: [address] [place] [address] Performed By: #### 5 0190-8, 2275-08, 2283-12 #### [facility] CLIA [id number] [place] [address] [place] Differential cell count method Nom (Bld) Auto Normal [facility] Comment on above: Order Comment: Speci men Type: BLOOD SPECIMEN Ordering Facility: [facility] Address: [address] [place] [address] Performed By: #### 5 0190-8, 2275-08, 2283-12 #### [facility] CLIA [id number] [address] [place] [address] [place] Eosinophils (Bld) [#/Vol] 0.19 10*3/uL Normal <0.46 [facility] Comment on above: Order Comment: Speci men Type: BLOOD SPECIMEN Ordering Facility: [facility] Address: [address] Performed By: #### 5 0190-8, 2275-08, 2283-12 #### [facility] CLIA [id number] [address] [place] [address] [place] Eosinophils/100 WBC (Bld) 2.4 % Normal [facility] Comment on above: Order Comment: Speci men Type: BLOOD SPECIMEN Ordering Facility: [facility] Address: [address] [place] [address] Performed By: #### 5 0190-8, 2275-4, 228-8 #### [facility] CLIA [id number] [address] [place] [address] [place] Erythrocyte distribution width (RBC) [Ratio] 15.1 % High 11.5-15.0 [facility] Comment on above: Order Comment: Speci men Type: BLOOD SPECIMEN Ordering Facility: [facility] Address: [address] [place] [address] Performed By: #### 5 0190-8, 2275-4, 8 #### [facility] CLIA [id number] [address] [place] [address] [place] Hematocrit (Bld) [Volume fraction] 33.2 % Low 36.0-46.0 [facility] Comment on above: Order Comment: Speci men Type: BLOOD SPECIMEN Ordering Facility: [facility] Address: [address] [place] [address] Performed By: #### 5 0190-8, 2275-4, 8 #### [facility] CLIA [id number] [address] [place] [address] [place] Hemoglobin (Bld) [Mass/Vol] 11.0 g/dL Low 11.5-15.5 [facility] Comment on above: Order Comment: Speci men Type: BLOOD SPECIMEN Ordering Facility: [facility] Address: [address] [place], [place] [address] Performed By: #### 5 0190-8, 2275-4, 8 #### [facility] CLIA [id number] [address] [place] [address] [place] Immature granulocytes (Bld) [#/Vol] 10*3/uL Normal <0.10 [facility] Comment on above: Order Comment: Speci men Type: BLOOD SPECIMEN Ordering Facility: [facility] Address: [address] Performed By: #### 5 0190-8, 2275-4, 8 #### [facility] CLIA [id number] [address] [place] [address] [place] Immature granulocytes/100 WBC (Bld) 0.2 % Normal [facility] Comment on above: Order Comment: Speci men Type: BLOOD SPECIMEN Ordering Facility: [facility] Address: [address] [place] [address] Performed By: #### 5 0190-8, 2275-4, 8 #### [facility] CLIA [id number] [address] [place] [address] [place] Lymphocytes (Bld) [#/Vol] 2.41 10*3/uL Normal 1.00-4.00 [facility] Comment on above: Order Comment: Speci men Type: BLOOD SPECIMEN Ordering Facility: [facility] Address: [address] [place] [address] Performed By: #### 5 0190-8, 4, 8 #### [facility] CLIA [id number] [address] [place] [address] [place] Lymphocytes/100 WBC (Bld) 29.9 % Normal [facility] Comment on above: Order Comment: Speci men Type: BLOOD SPECIMEN Ordering Facility: [facility] Address: [address] [place], [place] [address] Performed By: #### 5 0190-8, 4, 8 #### [facility] CLIA [id number] [address] [place] [address] [place] MCH (RBC) [Entitic mass] 28.9 pg Normal 26.0-34.0 [facility] Comment on above: Order Comment: Speci men Type: BLOOD SPECIMEN Ordering Facility: [facility] Address: [address] [place], [place] [address] Performed By: #### 5 0190-8, 2275-4, 2283-12 #### [facility] CLIA [id number] [address] [place] [address] [place] MCHC (RBC) [Mass/Vol] 33.1 g/dL Normal 30.5-36.0 [facility] Comment on above: Order Comment: Speci men Type: BLOOD SPECIMEN Ordering Facility: [facility] Address: [address] [place] [address] Performed By: #### 5 0190-8, 4, 2283-12 #### [facility] CLIA [id number] [address] [place] [address] [place] MCV (RBC) [Entitic vol] 87.4 fL Normal 80.0-100.0 [facility] Comment on above: Order Comment: Speci men Type: BLOOD SPECIMEN Ordering Facility: [facility] Address: [address] [place] [address] Performed By: #### 5 0190-8, 4, 2283-12 #### [facility] CLIA [id number] [address] [place] [address] [place] Monocytes (Bld) [#/Vol] 1.02 10*3/uL High <0.87 [facility] Comment on above: Order Comment: Speci men Type: BLOOD SPECIMEN Ordering Facility: [facility] Address: [address] [place], [place] [address] Performed By: #### 5 0190-8, 4, 2283-12 #### [facility] CLIA [id number] [address] [place] [address] [place] Monocytes/100 WBC (Bld) 12.7 % Normal [facility] Comment on above: Order Comment: Speci men Type: BLOOD SPECIMEN Ordering Facility: [facility] Address: [address] [place], [place] [address] Performed By: #### 5 0190-8, 2275-4, 8 #### [facility] CLIA [id number] [address] [place] [address] [place] Neutrophils (Bld) [#/Vol] 4.29 10*3/uL Normal 1.45-7.50 [facility] Comment on above: Order Comment: Speci men Type: BLOOD SPECIMEN Ordering Facility: [facility] Address: [address] [place] [address] Performed By: #### 5 0190-8, 2275-08, 2283-12 #### [facility] CLIA [id number] [address] [place] [address] [place] Neutrophils/100 WBC (Bld) 53.2 % Normal [facility] Comment on above: Order Comment: Speci men Type: BLOOD SPECIMEN Ordering Facility: [facility] Address: [address] [place] [address] Performed By: #### 5 0190-8, 2275-08, 2283-12 #### [facility] CLIA [id number] [address] [place] [address] [place] Nucleated RBC (Bld) [#/Vol] 10*3/uL Normal <0.01 [facility] Comment on above: Order Comment: Speci men Type: BLOOD SPECIMEN Ordering Facility: [facility] Address: [address] [place], [place] [address] Performed By: #### 5 0190-8, 2275-08, 2283-12 #### [facility] CLIA [id number] [address] [place] [address] [place] Nucleated RBC/100 WBC (Bld) [Ratio] 0.0 /100 WBC Normal [facility] Comment on above: Order Comment: Speci men Type: BLOOD SPECIMEN Ordering Facility: [facility] Address: [address] [place], [place] [address] Performed By: #### 5 0190-8, 2275-08, 2283-12 #### [facility] CLIA [id number] [address] [place] [address] [place] Platelet mean volume (Bld) [Entitic vol] 9.3 fL Normal 9.0-12.7 [facility] Comment on above: Order Comment: Speci men Type: BLOOD SPECIMEN Ordering Facility: [facility] Address: [address] [place], [place] [address] Performed By: #### 5 0190-8, 2275-08, 2283-12 #### [facility] CLIA [id number] [address] [place] [address] [place] Platelets (Bld) [#/Vol] 295 10*3/uL Normal 150-400 [facility] Comment on above: Order Comment: Speci men Type: BLOOD SPECIMEN Ordering Facility: [facility] Address: [address] [place], [place] [address] Performed By: #### 5 0190-8, 2275-08, 2283-12 #### [facility] CLIA [id number] [address] [place] [address] [place] RBC (Bld) [#/Vol] 3.80 10*6/uL Low 3.90-5.20 [facility] Comment on above: Order Comment: Speci men Type: BLOOD SPECIMEN Ordering Facility: [facility] Address: [address] [place], [place] [address] Performed By: #### 5 0190-8, 2275-08, 2283-12 #### [facility] CLIA [id number] [address] [place] [address] [place] WBC (Bld) [#/Vol] 8.06 10*3/uL Normal 3.70-11.00 [facility] Comment on above: Order Comment: Speci men Type: BLOOD SPECIMEN Ordering Facility: [facility] Address: [address] [place], [place] [address] Performed By: #### 5 0190-8, 2276-4, 2284-8 #### [facility] CLIA [id number] [address] [place] [address] [place] CNOVSPon 10-08-2022 CNOVSP Visit (SP) Office ([place]) -------- WINNIE CAI ([id number]) 1985 F Date Time Provider Department 10/08/22 3:30 PM ROBERTO POLLACK During your visit today, we recorded the following information about you: Temperature Pulse Respiration Blood pressure 98.1 degrees 78/minute 16/minute 96/68 Weight Height 66 kg 1.626 m Roberto Pollack MD 10/09/2022 9:39 AM Signed PATIENT NAME: Winnie Cai DATE: 10/08/2022 PRIMARY CARE PHYSICIAN: Dr. Mau Pantoja OTHER PHYSICIANS: [facility] Portions of this encounter note have been copied from my note from 08/13/2022 and has been updated where appropriate, and reflect my current medical decision making from today. CC: This is a 37 year old female with a history of liver failure status post liver transplant and chronic renal failure on peritoneal dialysis, seen for scheduled follow-up of chronic anemia. INTERIM HISTORY: Since the patient's last visit here she has remained on Epogen 40,000 units subcu weekly plus folic acid 1 mg daily. With this treatment her anemia has completely resolved. She has had no other significant medical changes. Currently she feels well with no particular complaints. MEDICATIONS: potassium chloride ER (KLOR-CON) 20 mEq tablet Take 20 mEq by mouth once daily. folic acid 1 mg tablet Take 2 tablets by mouth once daily. ALPRAZolam (XANAX) 0.25 mg tablet Take 0.25 mg by mouth. calcium acetate,phosphat bind, (PHOSLO) 667 mg capsule Calcium Acetate(Phosphat Bind) Active 50 MG PO 3X/Day with lunch,supper AND HS July 10, 2022 12:00am escitalopram oxalate (LEXAPRO) 5 mg tablet Take 3 tablets by mouth once daily. furosemide (LASIX) 40 mg tablet Take 40 mg by mouth. levothyroxine (SYNTHROID) 75 mcg tablet Levothyroxine Active 75 MCG PO Daily July 31, 2020 12:00am losartan (COZAAR) 25 mg tablet Take 25 mg by mouth. metoprolol succinate ER (TOPROL XL) 25 mg 24 hr tablet Take 1 tablet by mouth once daily. omeprazole (PRILOSEC) 20 mg capsule Omeprazole Active 20 MG PO Daily July 31, 2020 12:00am ondansetron orally disintegrating (ZOFRAN ODT) 4 mg disintegrating tablet Ondansetron Active 4 MG PO Q8H July 10, 2022 12:00am diphenhydrAMINE (BENADRYL) 25 mg tablet Take 25 mg by mouth. cycloSPORINE modified (NEORAL,GENGRAF) 25 mg capsule Take 75 mg by mouth. mycophenolate sodium DR (MYFORTIC) 180 mg EC tablet ALLERGIES: Shellfish Containing Products, Fish Containing Products, Penicillins, Sulfa (Sulfonamide Antibiotics), Sulfamethoxazole, Sulfamethoxazole-Trimeth oprim, and Trimethoprim PAST MEDICAL HISTORY: PAST MEDICAL HISTORY Diagnosis Date Anemia ESRD (end stage renal disease) (HCC) GERD (gastroesophageal reflux disease) Hyperparathyroidism (HCC) Hypertension Hypothyroidism PAST SURGICAL HISTORY: PAST SURGICAL HISTORY Procedure Laterality Date APPENDECTOMY LAPAROSCOPIC SPLENECTOMY LIVER TRANSPLANT HX REMOVAL GALLBLADDER REVIEW OF SYSTEMS: GENERAL: No weight loss, malaise or fevers. HEENT: Negative for frequent or significant headaches, No changes in hearing or vision, no nose bleeds or other nasal problems RESPIRATORY: Negative for cough, wheezing or shortness of breath. CARDIOVASCULAR: Negative for chest pain, leg swelling or palpitations. GI: Negative for abdominal discomfort, blood in stools or black stools or change in bowel habits : No history of dysuria, frequency or incontinence MUSCULOSKELETAL: Negative for: joint pain or swelling, back pain and muscle pain SKIN: Negative for lesions, rash, and itching. HEMATOLOGY/LYMPHOLOGY: Negative for prolonged bleeding, bruising easily or swollen nodes. NEURO: No history of headaches, syncope, paralysis, seizures or tremors PHYSICAL EXAM: Vitals: BP 96/68 Pulse 78 Temp 36.7 ?C (98.1 ?F) (Temporal) Resp 16 Ht 162.6 cm (5' 4.02 ) Wt 66 kg (145 lb 9.6 oz) SpO2 99% BMI 24.98 kg/m? General appearance: well appearing, alert, in no acute distress, well-hydrated, well nourished Skin: skin color, texture, turgor normal, no suspicious rashes or lesions Head: normal Eyes: Anicteric sclera. Pupils are equally round and reactive to light. Extraocular movements are intact. Ears: negative findings: external ears normal to inspection and palpation Oropharynx: negative Neck: Supple, no adenopathy; thyroid symmetric, normal size Lymph Nodes: No Submandibular, cervical, supraclavicular, axillary, or inguinal lymphadenopathy present Breast: NL Symmetry, No Masses/Tenderness/Discha rge, No Skin Changes Back: no tenderness to palpation Lungs: clear to auscultation, no wheezing or rhonchi Heart: Negative. RRR without murmur, gallop, or rubs. No ectopy. Abdomen: Normal abdominal exam, Abdomen soft, non-tender. Bowel sounds normal. No masses, organomegaly Rectal: Not done Extremities: Extremities normal. No deform (more content not included)... Normal [facility] Ferritin SerPl-mCncon 2022 Ferritin [Mass/Vol] 2432.0 ng/mL High 14.7-205.1 [facility] Comment on above: Order Comment: Speci men Type: BLOOD SPECIMEN Ordering Facility: [facility] Address: [address] [place] [id number] Performed By: #### 5 0190-8, 2276-4, 2284-8 #### [facility] CLIA [id number] [address] [facility] [address]K [id number] [place] [address] [place] Folate SerPl-mCncon 10-09-19 23 Folate [Mass/Vol] ng/mL Normal >4.7 [facility] Comment on above: Order Comment: Speci men Type: BLOOD SPECIMEN Ordering Facility: [facility] Address: [address] [place] [phone] Result Comment: A re sult of > 20 ng/mL is not necessarily indicative of a pathologic or treatable condition: it reflects a limitation of the test methodology. Assay reference range: 4.8 to 24.2 ng/mL. Suitable for detection of folate deficiency. Reference: Folate III (Folate III) [package insert V 1.0 Serbian]. [facility], [place], [place]: March 2015. Performed By: #### 5 0190-8, 6-4, 2283-8 #### [facility] CLIA [id number] [address] [place] [address] [place] Iron and Iron binding capaci ty panelon 10-08-2022 Iron [Mass/Vol] 130 ug/dL Normal 41-186 [facility] Comment on above: Order Comment: Óscari men Type: BLOOD SPECIMEN Ordering Facility: [facility] Address: [address] [place] [address] Performed By: #### 5 0190-8, 2275-4, 8 #### [facility] CLIA [id number] [address] [place] [address] Iron binding capacity [Mass/Vol] <147 Low 232-386 [facility] Comment on above: Order Comment: Óscari sarwat Type: BLOOD SPECIMEN Ordering Facility: [facility] Address: [address] [place] [address] Performed By: #### 5 0190-8, 2275-4, 8 #### [facility] CLIA [id number] [address] [place] [address] [place] Iron/TIBC [Molar ratio] >88.4 High 15.0-57.0 [facility] Comment on above: Order Comment: Speci men Type: BLOOD SPECIMEN Ordering Facility: [facility] Address: [address] [place] [address] Performed By: #### 5 0190-8, 2275-4, 2283-8 #### [facility] CLIA [id number] [address] [place] [address] [place] Retics #on 10-08-2022 Reticulocytes (Bld) [#/Vol] 0.83643 10*3/uL Normal 0.018-0.100 [facility] Comment on above: Order Comment: Speci men Type: BLOOD SPECIMEN Ordering Facility: [facility] Address: [address] [place] [address] Performed By: #### 5 0190-8, 2275-4, 8 #### [facility] CLIA [id number] [address] [place] [address] [place] Reticulocytes (Bld) [#/Vol]o n 10-08-2022 Reticulocytes/100 RBC (Bld) 0.9 % Normal 0.4-2.0 [facility] Comment on above: Order Comment: Speci men Type: BLOOD SPECIMEN Ordering Facility: [facility] Address: [address] [place], [place] [address] Performed By: #### 5 0190-8, 4, 2283-12 #### [facility] CLIA [id number] [address] [place] [address] [place] CBC W Auto Differential pane l (Bld)on 08-13-2022 Basophils (Bld) [#/Vol] 0.07 10*3/uL Normal <0.11 [facility] Comment on above: Order Comment: Speci men Type: BLOOD SPECIMEN Ordering Facility: [facility] Address: [address] [place], [place] [address] Performed By: #### 1 4196-0, 85811-8 #### [facility] CLIA [id number] [address] [place] [address] Basophils/100 WBC (Bld) 0.7 % Normal [facility] Comment on above: Order Comment: Speci men Type: BLOOD SPECIMEN Ordering Facility: [facility] Address: [address] [place], [place] [address] Performed By: #### 1 4196-0, 76232-6 #### [facility] CLIA [id number] [address] [place] [address] Differential cell count method Nom (Bld) Auto Normal [facility] Comment on above: Order Comment: Speci men Type: BLOOD SPECIMEN Ordering Facility: [facility] Address: [address] [place] [address] Performed By: #### 1 4196-0, 91082-8 #### [facility] CLIA [id number] [address] [place] [address] Eosinophils (Bld) [#/Vol] 0.15 10*3/uL Normal <0.46 [facility] Comment on above: Order Comment: Speci men Type: BLOOD SPECIMEN Ordering Facility: [facility] Address: [address] [place] [address] Performed By: #### 1 4196-0, 09183-2 #### [facility] CLIA [id number] [address] [place] [address] Eosinophils/100 WBC (Bld) 1.6 % Normal [facility] Comment on above: Order Comment: Speci men Type: BLOOD SPECIMEN Ordering Facility: [facility] Address: [address] [place] [address] Performed By: #### 1 4196-0, 17770-2 #### [facility] CLIA [id number] [address] [place] [address] Erythrocyte distribution width (RBC) [Ratio] 15.2 % High 11.5-15.0 [facility] Comment on above: Order Comment: Speci men Type: BLOOD SPECIMEN Ordering Facility: [facility] Address: [address] [place] [address] Performed By: #### 1 4196-0, 86511-3 #### [facility] CLIA [id number] [address] [place] [address] Hematocrit (Bld) [Volume fraction] 29.9 % Low 36.0-46.0 [facility] Comment on above: Order Comment: Speci men Type: BLOOD SPECIMEN Ordering Facility: [facility] Address: [address] [address] Performed By: #### 1 4196-0, 22893-1 #### [facility] CLIA [id number] [address] [place] [address] Hemoglobin (Bld) [Mass/Vol] 9.3 g/dL Low 11.5-15.5 [facility] Comment on above: Order Comment: Speci men Type: BLOOD SPECIMEN Ordering Facility: [facility] Address: [address] [address] Performed By: #### 1 4196-0, 28215-9 #### [facility] CLIA [id number] [address] [place] [address] Immature granulocytes (Bld) [#/Vol] 10*3/uL Normal <0.10 [facility] Comment on above: Order Comment: Speci men Type: BLOOD SPECIMEN Ordering Facility: [facility] Address: [address] [address] Performed By: #### 1 4196-0, 31882-3 #### [facility] CLIA [id number] [address] [place] [address] Immature granulocytes/100 WBC (Bld) 0.2 % Normal [facility] Comment on above: Order Comment: Speci men Type: BLOOD SPECIMEN Ordering Facility: [facility] Address: [address] [place] [address] Performed By: #### 1 4196-0, 10620-0 #### [facility] CLIA [id number] [address] [place] [address] Lymphocytes (Bld) [#/Vol] 3.57 10*3/uL Normal 1.00-4.00 [facility] Comment on above: Order Comment: Speci men Type: BLOOD SPECIMEN Ordering Facility: [facility] Address: [address] [address] Performed By: #### 1 4196-0, 27522-4 #### [facility] CLIA [id number] [address] [place] [address] Lymphocytes/100 WBC (Bld) 37.1 % Normal [facility] Comment on above: Order Comment: Speci men Type: BLOOD SPECIMEN Ordering Facility: [facility] Address: [address] [place] [address] Performed By: #### 1 4196-0, 17867-6 #### [facility] CLIA [id number] [address] [place] [address] MCH (RBC) [Entitic mass] 30.9 pg Normal 26.0-34.0 [facility] Comment on above: Order Comment: Speci men Type: BLOOD SPECIMEN Ordering Facility: [facility] Address: [address] [place] [address] Performed By: #### 1 4196-0, 28547-7 #### [facility] CLIA [id number] [address] [place] [address] MCHC (RBC) [Mass/Vol] 31.1 g/dL Normal 30.5-36.0 [facility] Comment on above: Order Comment: Speci men Type: BLOOD SPECIMEN Ordering Facility: [facility] Address: [address] [place] [address] Performed By: #### 1 4196-0, 48526-4 #### [facility] CLIA [id number] [address] [place] [address] MCV (RBC) [Entitic vol] 99.3 fL Normal 80.0-100.0 [facility] Comment on above: Order Comment: Speci men Type: BLOOD SPECIMEN Ordering Facility: [facility] Address: [address] [place] [address] Performed By: #### 1 4196-0, 63382-3 #### [facility] CLIA [id number] [address] [place] [address] Monocytes (Bld) [#/Vol] 0.94 10*3/uL High <0.87 [facility] Comment on above: Order Comment: Speci men Type: BLOOD SPECIMEN Ordering Facility: [facility] Address: [address] Performed By: #### 1 4196-0, 26913-6 #### [facility] CLIA [id number] [address] [place] [address] Monocytes/100 WBC (Bld) 9.8 % Normal [facility] Comment on above: Order Comment: Speci men Type: BLOOD SPECIMEN Ordering Facility: [facility] Address: [address] [address] Performed By: #### 1 4196-0, 89137-5 #### [facility] CLIA [id number] [address] [place] [address] 74669 Neutrophils (Bld) [#/Vol] 4.88 10*3/uL Normal 1.45-7.50 [facility] Comment on above: Order Comment: Speci men Type: BLOOD SPECIMEN Ordering Facility: [facility] Address: [address] [address] Performed By: #### 1 4196-0, 41971-7 #### [facility] CLIA [id number] [address] [place] [address]48 Neutrophils/100 WBC (Bld) 50.6 % Normal [facility] Comment on above: Order Comment: Speci men Type: BLOOD SPECIMEN Ordering Facility: [facility] Address: [address] Performed By: #### 1 4196-0, 48918-9 #### [facility] CLIA [id number] [address] [place] [address]952 Nucleated RBC (Bld) [#/Vol] 10*3/uL Normal <0.01 [facility] Comment on above: Order Comment: Speci men Type: BLOOD SPECIMEN Ordering Facility: [facility] Address: [address] Performed By: #### 1 4196-0, 78262-5 #### [facility] CLIA [id number] [address] [place] [address] Nucleated RBC/100 WBC (Bld) [Ratio] 0.0 /100 WBC Normal [facility] Comment on above: Order Comment: Speci men Type: BLOOD SPECIMEN Ordering Facility: [facility] Address: [address] [place] [address] Performed By: #### 1 4196-0, 79138-8 #### [facility] CLIA [id number] [address] [place] [address] Platelet mean volume (Bld) [Entitic vol] 9.5 fL Normal 9.0-12.7 [facility] Comment on above: Order Comment: Speci men Type: BLOOD SPECIMEN Ordering Facility: [facility] Address: [address] [place] [address] Performed By: #### 1 4196-0, 41895-3 #### [facility] CLIA [id number] [address] [place] [address]40 Platelets (Bld) [#/Vol] 272 10*3/uL Normal 150-400 [facility] Comment on above: Order Comment: Speci men Type: BLOOD SPECIMEN Ordering Facility: [facility] Address: [address] [place] [address] Performed By: #### 1 4196-0, 92481-2 #### [facility] CLIA [id number] [address] [place] [address] 86678 RBC (Bld) [#/Vol] 3.01 10*6/uL Low 3.90-5.20 [facility] Comment on above: Order Comment: Speci men Type: BLOOD SPECIMEN Ordering Facility: [facility] Address: [address] [place] [address] Performed By: #### 1 4196-0, 19315-0 #### [facility] CLIA [id number] [address] [place] [address] 90978 WBC (Bld) [#/Vol] 9.63 10*3/uL Normal 3.70-11.00 [facility] Comment on above: Order Comment: Speci men Type: BLOOD SPECIMEN Ordering Facility: [facility] Address: [place] [address] Performed By: #### 1 4196-0, 61193-1 #### [facility] CLIA [id number] [address] [place] [address]55 CNOVSPon 08-13-2022 CNOVSP Visit (SP) Office ([place]) -------- WINNIE CAI ([id number]) 1985 F Date Time Provider Department 08/13/22 3:00 PM ROBERTO POLLACK During your visit today, we recorded the following information about you: Temperature Pulse Respiration Blood pressure 97.2 degrees 79/minute 18/minute 93/49 Weight Height 65.3 kg 1.626 m Roberto Pollack MD 08/14/2022 10:15 AM Signed PATIENT NAME: Winnie Cai DATE: 08/13/2022 PRIMARY CARE PHYSICIAN: Dr. Mau Pantoja OTHER PHYSICIANS: [facility] Portions of this encounter note have been copied from my note from 07/16/2022 and has been updated where appropriate, and reflect my current medical decision making from today. CC: This is a 37 year old female with a history of liver failure status post liver transplant and chronic renal failure on peritoneal dialysis, seen for scheduled follow-up of chronic anemia. INTERIM HISTORY: Since the patient's last visit here she resumed Epogen 40,000 units subcu weekly, which she self administers. She is tolerating it well. Since then she has felt much better. Recent labs revealed improvement of her anemia. Due to a low folic acid level she was also prescribed folic acid 1 mg twice daily, but admits to being noncompliant. She has had no evidence of bleeding. Overall she feels quite well today with no particular complaints. MEDICATIONS: folic acid 1 mg tablet Take 2 tablets by mouth once daily. ALPRAZolam (XANAX) 0.25 mg tablet Take 0.25 mg by mouth. calcium acetate,phosphat bind, (PHOSLO) 667 mg capsule Calcium Acetate(Phosphat Bind) Active 50 MG PO 3X/Day with lunch,supper AND HS July 10, 2022 12:00am escitalopram oxalate (LEXAPRO) 5 mg tablet Take 3 tablets by mouth once daily. furosemide (LASIX) 40 mg tablet Take 40 mg by mouth. levothyroxine (SYNTHROID) 75 mcg tablet Levothyroxine Active 75 MCG PO Daily July 31, 2020 12:00am losartan (COZAAR) 25 mg tablet Take 25 mg by mouth. metoprolol succinate ER (TOPROL XL) 25 mg 24 hr tablet Take 1 tablet by mouth once daily. omeprazole (PRILOSEC) 20 mg capsule Omeprazole Active 20 MG PO Daily July 31, 2020 12:00am ondansetron orally disintegrating (ZOFRAN ODT) 4 mg disintegrating tablet Ondansetron Active 4 MG PO Q8H July 10, 2022 12:00am diphenhydrAMINE (BENADRYL) 25 mg tablet Take 25 mg by mouth. cycloSPORINE modified (NEORAL,GENGRAF) 25 mg capsule Take 75 mg by mouth. mycophenolate sodium DR (MYFORTIC) 180 mg EC tablet ALLERGIES: Shellfish Containing Products, Fish Containing Products, Penicillins, Sulfa (Sulfonamide Antibiotics), Sulfamethoxazole, Sulfamethoxazole-Trimeth oprim, and Trimethoprim PAST MEDICAL HISTORY: PAST MEDICAL HISTORY Diagnosis Date Anemia ESRD (end stage renal disease) (HCC) GERD (gastroesophageal reflux disease) Hyperparathyroidism (HCC) Hypertension Hypothyroidism PAST SURGICAL HISTORY: PAST SURGICAL HISTORY Procedure Laterality Date APPENDECTOMY LAPAROSCOPIC SPLENECTOMY LIVER TRANSPLANT HX REMOVAL GALLBLADDER REVIEW OF SYSTEMS: GENERAL: No weight loss, malaise or fevers. HEENT: Negative for frequent or significant headaches, No changes in hearing or vision, no nose bleeds or other nasal problems RESPIRATORY: Negative for cough, wheezing or shortness of breath. CARDIOVASCULAR: Negative for chest pain, leg swelling or palpitations. GI: Negative for abdominal discomfort, blood in stools or black stools or change in bowel habits : No history of dysuria, frequency or incontinence MUSCULOSKELETAL: Negative for: joint pain or swelling, back pain and muscle pain SKIN: Negative for lesions, rash, and itching. HEMATOLOGY/LYMPHOLOGY: Negative for prolonged bleeding, bruising easily or swollen nodes. NEURO: No history of headaches, syncope, paralysis, seizures or tremors PHYSICAL EXAM: Vitals: BP (!) 93/49 Pulse 79 Temp 36.2 ?C (97.2 ?F) (Temporal) Resp 18 Ht 162.6 cm (5' 4.02 ) Wt 65.3 kg (144 lb) SpO2 96% BMI 24.71 kg/m? General appearance: well appearing, alert, in no acute distress, well-hydrated, well nourished Skin: skin color, texture, turgor normal, no suspicious rashes or lesions Head: normal Eyes: Anicteric sclera. Pupils are equally round and reactive to light. Extraocular movements are intact. Ears: negative findings: external ears normal to inspection and palpation Oropharynx: negative Neck: Supple, no adenopathy; thyroid symmetric, normal size Lymph Nodes: No Submandibular, cervical, supraclavicular, axillary, or inguinal lymphadenopathy present Breast: NL Symmetry, No Masses/Tenderness/Discha rge, No Skin Changes Back: no tenderness to palpation Lungs: clear to auscultation, no wheezing or rhonchi Heart: Negative. RRR without murmur, gallop, or rubs. No ectopy. Abdomen: Normal abdominal exam, Abdomen soft, non-tender. Bowel sounds normal. No (more content not included)... Normal [facility] Retics #on 08-13-2022 Reticulocytes (Bld) [#/Vol] 0.99736 10*3/uL Normal 0.018-0.100 [facility] Comment on above: Order Comment: Speci men Type: BLOOD SPECIMEN Ordering Facility: [facility] Address: [facility] [address] [place] [address] Performed By: #### 1 4196-0, 75765-0 #### [facility] CLIA [id number] [address] [place] [address]472 Reticulocytes (Bld) [#/Vol]o n 08-13-2022 Reticulocytes/100 RBC (Bld) 1.8 % Normal 0.4-2.0 [facility] Comment on above: Order Comment: Speci men Type: BLOOD SPECIMEN Ordering Facility: [facility] Address: [place] [address] Performed By: #### 1 4196-0, 70563-0 #### [facility] CLIA [id number] [address] [place] [address] 74436 Sergio 07-18-2022 CNPN Telephone ([place]) -------- WINNIE CAI ([id number]) 1985 F Date Time Provider Department 07/18/22 CARMEN GOMES During your visit today, we recorded the following information about you: Carmen Gomes RN 07/18/2022 10:17 AM Signed ----- Message from Roberto Pollack MD sent at 07/17/2022 4:41 PM EST ----- Please inform the patient that her folic acid level is definitely low, and I would suggest she take folic acid 1 mg twice daily x2 weeks, then 1 mg once daily. Please fax her recent office note to her stitcher feeder. Please verify that she is prescribed Epogen 40,000 units subcu weekly which she self administers at home. ThanksYassine RN 07/18/2022 10:27 AM Signed Call placed to pt. No answer. Message left requesting call back. Note faxed to [facility]ph[facility] @ [phone]. JUNIOR Alatorre RN 07/22/2022 3:02 PM Signed Pt notified of lab results and folic acid instructions. Pt verbalizes understanding and reports that she has been taking it once daily. Will increase as instructed. Pt also confirms that her stitcher feeder has ordered the Epogen for her to receive at home. Carmen Gomes RN Allergies As of Date: 07/18/2022 Noted Allergy Reaction SHELLFISH CONTAINING PRODUCTS 01/13/2015 10 - Anaphylaxis FISH CONTAINING PRODUCTS 10/09/2013 16 - Unknown PENICILLINS 10/09/2013 4 - Hives 2 - Rash SULFA (SULFONAMIDE ANTIBIOTICS) 07/15/2022 4 - Hives SULFAMETHOXAZOLE 07/15/2022 4 - Hives SULFAMETHOXAZOLE-TRIMETH OPRIM 12/04/2014 2 - Rash TRIMETHOPRIM 07/15/2022 4 - Hives Date Reviewed: 07/16/2022 Reviewed by: Terra Estrada - Fully Assessed Reason for Visit: Results [95] Prescriptions as of 07/22/2022 - ALPRAZolam (XANAX) 0.25 mg tablet Take 0.25 mg by mouth. - calcium acetate,phosphat bind, (PHOSLO) 667 mg capsule Calcium Acetate(Phosphat Bind) Active 50 MG PO 3X/Day with lunch,supper AND HS July 10, 2022 12:00am - escitalopram oxalate (LEXAPRO) 5 mg tablet Take 3 tablets by mouth once daily. - furosemide (LASIX) 40 mg tablet Take 40 mg by mouth. - levothyroxine (SYNTHROID) 75 mcg tablet Levothyroxine Active 75 MCG PO Daily July 31, 2020 12:00am - losartan (COZAAR) 25 mg tablet Take 25 mg by mouth. - metoprolol succinate ER (TOPROL XL) 25 mg 24 hr tablet Take 1 tablet by mouth once daily. - omeprazole (PRILOSEC) 20 mg capsule Omeprazole Active 20 MG PO Daily July 31, 2020 12:00am - ondansetron orally disintegrating (ZOFRAN ODT) 4 mg disintegrating tablet Ondansetron Active 4 MG PO Q8H July 10, 2022 12:00am - diphenhydrAMINE (BENADRYL) 25 mg tablet Take 25 mg by mouth. - cycloSPORINE modified (NEORAL,GENGRAF) 25 mg capsule Take 75 mg by mouth. - mycophenolate sodium DR (MYFORTIC) 180 mg EC tablet - folic acid 1 mg tablet Take 1 tablet by mouth once daily. Problem List As Of Date: 07/18/2022 (None) Encounter Status:Closed by CARMEN GOMES on 07/22/22 Normal [facility] FERRITIN BLDon 07-17-2022 Ferritin [Mass/Vol] 1360.0 ng/mL High 14.7 - 2 05.1 ng/mL [place] FOLATE SERUMon 07-17-2022 Folate [Mass/Vol] 2.7 ng/mL Low >4.7 ng/mL [facility] Iron and Iron binding capaci ty panelon 07-17-2022 Iron [Mass/Vol] 77 ug/dL 41 - 186 ug/dL [place] Iron binding capacity [Mass/Vol] 202 ug/dL Low 232 - 386 ug/dL [place] Iron/TIBC [Molar ratio] 38.1 % 15.0 - 57.0 % [place] CBC W Auto Differential pane l (Bld)on 07-16-2022 Basophils (Bld) [#/Vol] 0.11 10*3/uL High <0.11 [facility] Comment on above: Order Comment: Speci men Type: BLOOD SPECIMEN Ordering Facility: [facility] Address: [address] [place] [address] Performed By: #### 5 0190-8, 2275-08, 2283-12 #### [facility] CLIA [id number] [address] [place] [address] [place] OF [facility] Basophils/100 WBC (Bld) 1.3 % Normal [facility] Comment on above: Order Comment: Speci men Type: BLOOD SPECIMEN Ordering Facility: [facility] Address: [address] [address] Performed By: #### 5 0190-8, 2275-08, 2283-12 #### [facility] CLIA [id number] [address] [place] [address] [place] Differential cell count method Nom (Bld) Auto Normal [facility] Comment on above: Order Comment: Speci men Type: BLOOD SPECIMEN Ordering Facility: [facility] Address: [address] [address] Performed By: #### 5 0190-8, 2275-08, 2283-12 #### [facility] CLIA [id number] [address] [place] [address] [place] Eosinophils (Bld) [#/Vol] 0.41 10*3/uL Normal <0.46 [facility] Comment on above: Order Comment: Speci men Type: BLOOD SPECIMEN Ordering Facility: [facility] Address: [address] [place] [address] Performed By: #### 5 0190-8, 2275-08, 2283-12 #### [facility] CLIA [id number] [address] [place] [address] [place] Eosinophils/100 WBC (Bld) 4.8 % Normal [facility] Comment on above: Order Comment: Speci men Type: BLOOD SPECIMEN Ordering Facility: [facility] Address: [address] [place] [address] Performed By: #### 5 0190-8, 2275-08, 2283-12 #### [facility] CLIA [id number] [address] [place] [address] [place] Erythrocyte distribution width (RBC) [Ratio] 15.4 % High 11.5-15.0 [facility] Comment on above: Order Comment: Speci men Type: BLOOD SPECIMEN Ordering Facility: [facility] Address: [address] [place], [place] [address] Performed By: #### 5 0190-8, 2275-08, 2283-12 #### [facility] CLIA [id number] [address] [place] [address] [place] Hematocrit (Bld) [Volume fraction] 30.2 % Low 36.0-46.0 [facility] Comment on above: Order Comment: Speci men Type: BLOOD SPECIMEN Ordering Facility: [facility] Address: [address] [place], [place] [address] Performed By: #### 5 0190-8, 2275-08, 2283-12 #### [facility] CLIA [id number] [address] [place] [address] [place] Hemoglobin (Bld) [Mass/Vol] 9.7 g/dL Low 11.5-15.5 [facility] Comment on above: Order Comment: Speci men Type: BLOOD SPECIMEN Ordering Facility: [facility] Address: [address] [place] [address] Performed By: #### 5 0190-8, 2275-4, 8 #### [facility] CLIA [id number] [address] [place] [address] [place] Immature granulocytes (Bld) [#/Vol] 10*3/uL Normal <0.10 [facility] Comment on above: Order Comment: Speci men Type: BLOOD SPECIMEN Ordering Facility: [facility] Address: [address] [place] [address] Performed By: #### 5 0190-8, 4, 8 #### [facility] CLIA [id number] [address] [place] [address] [place] Immature granulocytes/100 WBC (Bld) 0.1 % Normal [facility] Comment on above: Order Comment: Speci men Type: BLOOD SPECIMEN Ordering Facility: [facility] Address: [address] [place] [address] Performed By: #### 5 0190-8, 4, 8 #### [facility] CLIA [id number] [address] [place] [address] [place] Lymphocytes (Bld) [#/Vol] 3.63 10*3/uL Normal 1.00-4.00 [facility] Comment on above: Order Comment: Speci men Type: BLOOD SPECIMEN Ordering Facility: [facility] Address: [address] [place], [place] [address] Performed By: #### 5 0190-8, 2275-4, 8 #### [facility] CLIA [id number] [address] [place] [address] [place] Lymphocytes/100 WBC (Bld) 42.1 % Normal [facility] Comment on above: Order Comment: Speci men Type: BLOOD SPECIMEN Ordering Facility: [facility] Address: [address] [place] [address] Performed By: #### 5 0190-8, 2275-4, 2283-12 #### [facility] CLIA [id number] [address] [place] [address] [place] MCH (RBC) [Entitic mass] 31.2 pg Normal 26.0-34.0 [facility] Comment on above: Order Comment: Speci men Type: BLOOD SPECIMEN Ordering Facility: [facility] Address: [address] [place] [address] Performed By: #### 5 0190-8, 2275-08, 2283-12 #### [facility] CLIA [id number] [address] [place] [address] [place] MCHC (RBC) [Mass/Vol] 32.1 g/dL Normal 30.5-36.0 [facility] Comment on above: Order Comment: Speci men Type: BLOOD SPECIMEN Ordering Facility: [facility] Address: [address] [place] [address] Performed By: #### 5 0190-8, 2275-08, 2283-12 #### [facility] CLIA [id number] [address] [place] [address] [place] MCV (RBC) [Entitic vol] 97.1 fL Normal 80.0-100.0 [facility] Comment on above: Order Comment: Speci men Type: BLOOD SPECIMEN Ordering Facility: [facility] Address: [address] [place] [address] Performed By: #### 5 0190-8, 2275-08, 8 #### [facility] CLIA [id number] [address] [place] [address] [place] Monocytes (Bld) [#/Vol] 0.92 10*3/uL High <0.87 [facility] Comment on above: Order Comment: Speci men Type: BLOOD SPECIMEN Ordering Facility: [facility] Address: [address] [place], [place] [address] Performed By: #### 5 0190-8, 2275-4, 2283-8 #### [facility] CLIA [id number] [address] [place] [address] [place] Monocytes/100 WBC (Bld) 10.7 % Normal [facility] Comment on above: Order Comment: Speci men Type: BLOOD SPECIMEN Ordering Facility: [facility] Address: [address] [place] [address] Performed By: #### 5 0190-8, 2275-4, 2283-8 #### [facility] CLIA [id number] [address] [place] [address] [place] Neutrophils (Bld) [#/Vol] 3.55 10*3/uL Normal 1.45-7.50 [facility] Comment on above: Order Comment: Speci men Type: BLOOD SPECIMEN Ordering Facility: [facility] Address: [address] [place], [place] [address] Performed By: #### 5 0190-8, 2275-4, 2283-8 #### [facility] CLIA [id number] [address] [place] [address] [place] Neutrophils/100 WBC (Bld) 41.0 % Normal [facility] Comment on above: Order Comment: Speci men Type: BLOOD SPECIMEN Ordering Facility: [facility] Address: [address] [place], [place] [address] Performed By: #### 5 0190-8, 2275-4, 2283-8 #### [facility] CLIA [id number] [address] [id number] [address] [place] Nucleated RBC (Bld) [#/Vol] 10*3/uL Normal <0.01 [facility] Comment on above: Order Comment: Speci men Type: BLOOD SPECIMEN Ordering Facility: [facility] Address: [address] [place] [address] Performed By: #### 5 0190-8, 2275-4, 2283-8 #### [facility] CLIA [id number] [address] [place] [address] [place] Nucleated RBC/100 WBC (Bld) [Ratio] 0.0 /100 WBC Normal [facility] Comment on above: Order Comment: Speci men Type: BLOOD SPECIMEN Ordering Facility: [facility] Address: [address] [place] [address] Performed By: #### 5 0190-8, 2275-4, 8 #### [facility] CLIA [id number] [address] [place] [address] [place] Platelet mean volume (Bld) [Entitic vol] 9.5 fL Normal 9.0-12.7 [facility] Comment on above: Order Comment: Speci men Type: BLOOD SPECIMEN Ordering Facility: [facility] Address: [address] [place], [place] [address] Performed By: #### 5 0190-8, 2275-4, 8 #### [facility] CLIA [id number] [address] [place] [address] [place] Platelets (Bld) [#/Vol] 288 10*3/uL Normal 150-400 [facility] Comment on above: Order Comment: Speci men Type: BLOOD SPECIMEN Ordering Facility: [facility] Address: [address] [place], [place] [address] Performed By: #### 5 0190-8, 2275-4, 2283-8 #### [facility] CLIA [id number] [address] [place] [address] [place] RBC (Bld) [#/Vol] 3.11 10*6/uL Low 3.90-5.20 [facility] Comment on above: Order Comment: Speci men Type: BLOOD SPECIMEN Ordering Facility: [facility] Address: [address] [place] [address] Performed By: #### 5 0190-8, 2276-4, 2284-8 #### [facility] CLIA [id number] [address] [place] [address] [place] WBC (Bld) [#/Vol] 8.63 10*3/uL Normal 3.70-11.00 [facility] Comment on above: Order Comment: Speci men Type: BLOOD SPECIMEN Ordering Facility: [facility] Address: [address] [place] [address] Performed By: #### 5 0190-8, 2276-4, 4-8 #### [facility] CLIA [id number] [address] [place] [address] [place] Basophils (Bld) [#/Vol] 0.11 10*3/uL High <0.11 k/uL [place] Basophils/100 WBC (Bld) 1.3 % [facility] Differential cell count method Nom (Bld) Auto [place] Eosinophils (Bld) [#/Vol] 0.41 10*3/uL <0.46 k/uL [place] Eosinophils/100 WBC (Bld) 4.8 % [place] Erythrocyte distribution width (RBC) [Ratio] 15.4 % High 11.5 - 15.0 % [place] Hematocrit (Bld) [Volume fraction] 30.2 % Low 36.0 - 46.0 % [place] Hemoglobin (Bld) [Mass/Vol] 9.7 g/dL Low 11.5 - 15.5 g/dL [place] Immature granulocytes (Bld) [#/Vol] <0.10 k/uL [place] Immature granulocytes/100 WBC (Bld) 0.1 % [place] Lymphocytes (Bld) [#/Vol] 3.63 10*3/uL 1.00 - 4.00 k/uL [place] Lymphocytes/100 WBC (Bld) 42.1 % [place] MCH (RBC) [Entitic mass] 31.2 pg 26.0 - 34.0 pg [place] MCHC (RBC) [Mass/Vol] 32.1 g/dL 30.5 - 36.0 g/dL [place] MCV (RBC) [Entitic vol] 97.1 fL 80.0 - 100.0 fL [place] Monocytes (Bld) [#/Vol] 0.92 10*3/uL High <0.87 k/uL [facility] Monocytes/100 WBC (Bld) 10.7 % [facility] Neutrophils ([facility]ld[facility] [#/Vol] 3.55 10*3/uL 1.45 - 7.50 k/uL [place] Neutrophils/100 WBC (Bld) 41.0 % [place] Nucleated RBC (Bld) [#/Vol] <0.01 k/uL [facility] Nucleated RBC/100 WBC (Bld) [Ratio] 0.0 /100 WBC [place] Platelet mean volume (Bld) [Entitic vol] 9.5 fL 9.0 - 12.7 fL [place] Platelets (Bld) [#/Vol] 288 10*3/uL 150 - 400 k/uL [place] RBC (Bld) [#/Vol] 3.11 10*6/uL Low 3.90 - 5.2 0 m/uL [place] WBC (Bld) [#/Vol] 8.63 10*3/uL 3.70 - 11. 00 k/uL [place] CNOVSPon 07-16-2022 CNOVSP Visit (SP) Office ([place]) -------- WINNIE CAI ([id number]) 1985 F Date Time Provider Department 07/16/22 4:00 PM ROBERTO POLLACK During your visit today, we recorded the following information about you: Temperature Pulse Respiration Blood pressure 97.5 degrees 68/minute 18/minute 117/78 Weight Height 66 kg 1.626 m Roberto Pollack MD 07/17/2022 1:25 PM Signed PATIENT NAME: Winnie Cai DATE: 07/16/2022 PRIMARY CARE PHYSICIAN: Dr. Mau Pantoja OTHER PHYSICIANS: [facility] CC: This is a 37 year old female with a history of liver failure status post liver transplant and chronic renal failure on peritoneal dialysis, seen for follow-up after recent hospitalization for severe anemia. INTERIM HISTORY: The patient was admitted to [facility] on 07/10/2022 after labs obtained as an outpatient revealed severe anemia with a hemoglobin of 6.5. She is on peritoneal dialysis for chronic renal failure and had been on ESAs since starting dialysis. Initially she had been on Epogen 40,000 units weekly which she self administered. Apparently the BLAISE was changed to Mircera, and she received her first injection at the nephrology clinic in May. The patient was feeling well when outpatient labs revealed severe anemia. She had no fevers or signs of infection and no evidence of bleeding. After admission she received PRBC x2 and her hemoglobin returned to baseline. Additional labs when hospitalized revealed a slightly low folic acid level, otherwise were nondiagnostic. However, iron studies were abnormal with a markedly elevated ferritin and elevated percent saturation. Stools for occult blood were negative, and GI evaluation with upper and lower endoscopy revealed no evidence of occult GI bleeding. (EGD was normal. Colonoscopy revealed a small rectal polyp which was removed.) The patient was discharged on 07/12/2022 with a hemoglobin of 10.4. Since discharge she has had no significant medical changes. Currently feels well with no particular complaints. No evidence of bleeding or significant bruising. No fevers or signs of infection. MEDICATIONS: No prescriptions on file. ALLERGIES: Sulfa (Sulfonamide Antibiotics), Sulfamethoxazole, and Trimethoprim PAST MEDICAL HISTORY: PAST MEDICAL HISTORY Diagnosis Date Anemia ESRD (end stage renal disease) (HCC) GERD (gastroesophageal reflux disease) Hyperparathyroidism (HCC) Hypertension Hypothyroidism PAST SURGICAL HISTORY: PAST SURGICAL HISTORY Procedure Laterality Date APPENDECTOMY LAPAROSCOPIC SPLENECTOMY LIVER TRANSPLANT HX REMOVAL GALLBLADDER REVIEW OF SYSTEMS: GENERAL: No weight loss, malaise or fevers. HEENT: Negative for frequent or significant headaches, No changes in hearing or vision, no nose bleeds or other nasal problems RESPIRATORY: Negative for cough, wheezing or shortness of breath. CARDIOVASCULAR: Negative for chest pain, leg swelling or palpitations. GI: Negative for abdominal discomfort, blood in stools or black stools or change in bowel habits : No history of dysuria, frequency or incontinence MUSCULOSKELETAL: Negative for: joint pain or swelling, back pain and muscle pain SKIN: Negative for lesions, rash, and itching. HEMATOLOGY/LYMPHOLOGY: Negative for prolonged bleeding, bruising easily or swollen nodes. NEURO: No history of headaches, syncope, paralysis, seizures or tremors PHYSICAL EXAM: Vitals: BP 117/78 Pulse 68 Temp 36.4 ?C (97.5 ?F) (Temporal) Resp 18 Ht 162.6 cm (5' 4 ) Wt 66 kg (145 lb 6.4 oz) BMI 24.96 kg/m? General appearance: well appearing, alert, in no acute distress, well-hydrated, well nourished Skin: skin color, texture, turgor normal, no suspicious rashes or lesions Head: normal Eyes: Anicteric sclera. Pupils are equally round and reactive to light. Extraocular movements are intact. Ears: negative findings: external ears normal to inspection and palpation Oropharynx: negative Neck: Supple, no adenopathy; thyroid symmetric, normal size Lymph Nodes: No Submandibular, cervical, supraclavicular, axillary, or inguinal lymphadenopathy present Breast: NL Symmetry, No Masses/Tenderness/Discha rge, No Skin Changes Back: no tenderness to palpation Lungs: clear to auscultation, no wheezing or rhonchi Heart: Negative. RRR without murmur, gallop, or rubs. No ectopy. Abdomen: Normal abdominal exam, Abdomen soft, non-tender. Bowel sounds normal. No masses, organomegaly Rectal: Not done Extremities: Extremities normal. No deformities, edema, or skin discoloration. Good capillary refill. Musculoskeletal: No joint swelling, deformity, or tenderness. Peripheral pulses: Normal LABORATORY DATA: Hemoglobin (g/dL) Date Value 07/16/2022 9.7 Hematocrit (%) Date Value 07/16/2022 30.2 WBC (k/uL) Date Value 07/16/2022 8.63 Platelet Count (k/uL) Date Value 06/27 (more content not included)... Normal [facility] metabolic 2000 panelon 07-16-2022 Albumin [Mass/Vol] 3.3 g/dL Low 3.9-4.9 [facility] Comment on above: Order Comment: Speci men Type: BLOOD SPECIMEN Ordering Facility: [facility] Address: [address] [address] Performed By: #### 1 4196-0, 34967-6 #### [facility] CLIA [id number] [address] [place] [address] ALP [Catalytic activity/Vol] 168 U/L High 34-123 [facility] Comment on above: Order Comment: Speci men Type: BLOOD SPECIMEN Ordering Facility: [facility] Address: [address] [address] Performed By: #### 1 4196-0, 48846-1 #### [facility] CLIA [id number] [address] [place] [address] 89207 ALT [Catalytic activity/Vol] 11 U/L Normal 7-38 [facility] Comment on above: Order Comment: Speci men Type: BLOOD SPECIMEN Ordering Facility: [facility] Address: [address] [place] [address] Performed By: #### 1 4196-0, 28747-4 #### [facility] CLIA [id number] [address] [place] [address]807 Anion gap [Moles/Vol] 12 mmol/L Normal 9-18 [facility] Comment on above: Order Comment: Speci men Type: BLOOD SPECIMEN Ordering Facility: [facility] Address: [address] Performed By: #### 1 4196-0, 73392-0 #### [facility] CLIA [id number] [address] [place] [address]37 AST [Catalytic activity/Vol] 18 U/L Normal 13-35 [facility] Comment on above: Order Comment: Speci men Type: BLOOD SPECIMEN Ordering Facility: [facility] Address: [address] [place], [place] [id number] Performed By: #### 1 4196-0, 59657-6 #### [facility] CLIA [id number] [address] [place] [address]10 Bilirubin [Mass/Vol] 0.6 mg/dL Normal 0.2-1.3 [facility] Comment on above: Order Comment: Speci men Type: BLOOD SPECIMEN Ordering Facility: [facility] Address: [address] Performed By: #### 1 4196-0, 69818-9 #### [facility] CLIA [id number] [address] [place] [address] 57283 Calcium [Mass/Vol] 9.0 mg/dL Normal 8.5-10.2 [facility] Comment on above: Order Comment: Speci men Type: BLOOD SPECIMEN Ordering Facility: [facility] Address: [address] [address] Performed By: #### 1 4196-0, 21272-5 #### [facility] CLIA [id number] [address] [place] [address] 74783 Chloride [Moles/Vol] 96 mmol/L Low 97-105 [facility] Comment on above: Order Comment: Speci men Type: BLOOD SPECIMEN Ordering Facility: [facility] Address: [address] [address] Performed By: #### 1 4196-0, 85143-2 #### [facility] CLIA [id number] [address] [place] [address]11 CO2 [Moles/Vol] 24 mmol/L Normal 22-30 [facility] Comment on above: Order Comment: Speci men Type: BLOOD SPECIMEN Ordering Facility: [facility] Address: [address] Performed By: #### 1 4196-0, 25479-9 #### [facility] CLIA [id number] [address] [place] [address]177 Creatinine [Mass/Vol] 8.05 mg/dL High 0.58-0.96 [facility] Comment on above: Order Comment: Avis fam Type: BLOOD SPECIMEN Ordering Facility: [facility] Address: [address] [id number] Performed By: #### 1 4196-0, 69252-3 #### [facility] CLIA [id number] [address] [place] [address] 79167 ESTIMATED GLOMERULAR FILTRATION RATE 6 mL/min/1.73m??? Low >=60 [facility] Comment on above: Order Comment: Avis fam Type: BLOOD SPECIMEN Ordering Facility: [facility] Address: [address] Result Comment: Nahed mated Glomerular Filtration Rate (eGFR) is calculated using the 2020 CKD-EPI creatinine equation. This equation utilizes serum creatinine, sex, and age as parameters. The creatinine assay has traceable calibration to isotope dilution-mass spectrometry. Refer to KDIGO guidelines for clinical interpretation. In patients with unstable renal function, e.g. those with acute kidney injury, the eGFR may not accurately reflect actual GFR. Performed By: #### 1 4196-0, 74647-0 #### [facility] CLIA [id number] [address] [place] [address]2685 Glucose [Mass/Vol] 78 mg/dL Normal 74-99 [facility] Comment on above: Order Comment: Avis fam Type: BLOOD SPECIMEN Ordering Facility: [facility] Address: [address] [id number] Result Comment: The [place] Diabetes Association (ADA) provides guidance for cutoff values for fasting glucose and random glucose. The ADA defines fasting as no caloric intake for at least 8 hours. Fasting plasma glucose results between 100 to 125 mg/dL indicate increased risk for diabetes (prediabetes). Fasting plasma glucose results greater than or equal to 126 mg/dL meet the criteria for diagnosis of diabetes. In the absence of unequivocal hyperglycemia, results should be confirmed by repeat testing. In a patient with classic symptoms of hyperglycemia or hyperglycemic crisis, random plasma glucose results greater than or equal to 200 mg/dL meet the criteria for diagnosis of diabetes. Reference: Standards of Medical Care in Diabetes 2016, [place] Diabetes Association. Diabetes Care. 2016.39(Suppl 1). Performed By: #### 1 4196-0, 35084-5 #### [facility] CLIA [id number] [address] [place] [address] Potassium [Moles/Vol] 3.9 mmol/L Normal 3.7-5.1 [facility] Comment on above: Order Comment: Speci men Type: BLOOD SPECIMEN Ordering Facility: [facility] Address: [address] [address] Performed By: #### 1 4196-0, 79183-6 #### [facility] CLIA [id number] [address] [place] [address] 34974 Protein [Mass/Vol] 6.1 g/dL Low 6.3-8.0 [facility] Comment on above: Order Comment: Speci men Type: BLOOD SPECIMEN Ordering Facility: [facility] Address: [address] [address] Performed By: #### 1 4196-0, 93034-7 #### [facility] CLIA [id number] [address] [place] [address]6486 Sodium [Moles/Vol] 132 mmol/L Low 136-144 [facility] Comment on above: Order Comment: Speci men Type: BLOOD SPECIMEN Ordering Facility: [facility] Address: [address] [address] Performed By: #### 1 4196-0, 01401-4 #### [facility] CLIA [id number] [address] [place] [address]236 Urea nitrogen [Mass/Vol] 39 mg/dL High 7-21 [facility] Comment on above: Order Comment: Speci men Type: BLOOD SPECIMEN Ordering Facility: [facility] Address: [address] [address] Performed By: #### 1 4196-0, 56713-3 #### [facility] CLIA [id number] [address] [place] [address] Albumin [Mass/Vol] 3.3 g/dL Low 3.9 - 4.9 g/dL [place] ALP [Catalytic activity/Vol] 168 U/L High 34 - 123 U/L [place] ALT [Catalytic activity/Vol] 11 U/L 7 - 38 U/L [place] Anion gap [Moles/Vol] 12 mmol/L 9 - 18 mmol/L [place] AST [Catalytic activity/Vol] 18 U/L 13 - 35 U/L [place] Bilirubin [Mass/Vol] 0.6 mg/dL 0.2 - 1 .3 mg/dL [place] Calcium [Mass/Vol] 9.0 mg/dL 8.5 - 10. 2 mg/dL [place] Chloride [Moles/Vol] 96 mmol/L Low 97 - 10 5 mmol/L [place] CO2 [Moles/Vol] 24 mmol/L 22 - 30 mmol/L [place] Creatinine [Mass/Vol] 8.05 mg/dL High 0.58 - 0.96 mg/dL [place] Estimated Glomerular Filtration Rate 6 mL/min/1.73m Low >=60 mL/min/1.73m [place] Glucose [Mass/Vol] 78 mg/dL 74 - 99 mg/dL [place] Potassium [Moles/Vol] 3.9 mmol/L 3.7 - 5.1 mmol/L [place] Protein [Mass/Vol] 6.1 g/dL Low 6.3 - 8.0 g/dL [place] Sodium [Moles/Vol] 132 mmol/L Low 136 - 144 mmol/L [place] Urea nitrogen [Mass/Vol] 39 mg/dL High 7 - 21 mg/dL [place] Ferritin SerPl-mCncon 2022 Ferritin [Mass/Vol] 1360.0 ng/mL High 14.7-205.1 [facility] Comment on above: Order Comment: Speci men Type: BLOOD SPECIMEN Ordering Facility: [facility] Address: [address] [place] [id number] Performed By: #### 1 4196-0, 91697-8 #### [facility] CLIA [id number] [address] [place] [address] Folate SerPl-mCncon 07-16-19 23 Folate [Mass/Vol] 2.7 ng/mL Low >4.7 [facility] Comment on above: Order Comment: Speci men Type: BLOOD SPECIMEN Ordering Facility: [facility] Address: [address] [address] Performed By: #### 5 0190-8, 2276-4, 2284-8 #### [facility] CLIA [id number] [address] [facility] [id number] [id number] [place] Iron and Iron binding capaci ty panelon 07-16-2022 Iron [Mass/Vol] 77 ug/dL Normal 41-186 [facility] Comment on above: Order Comment: Speci men Type: BLOOD SPECIMEN Ordering Facility: [facility] Address: [address] [address] Performed By: #### 1 4196-0, 99910-8 #### [facility] CLIA [id number] [address] [place] [address] Iron binding capacity [Mass/Vol] 202 ug/dL Low 232-386 [facility] Comment on above: Order Comment: Speci men Type: BLOOD SPECIMEN Ordering Facility: [facility] Address: [address] [address] Performed By: #### 1 4196-0, 84126-9 #### [facility] CLIA [id number] [address] [place], [place] [address] Iron/TIBC [Molar ratio] 38.1 % Normal 15.0-57.0 C [facility] Comment on above: Order Comment: Speci men Type: BLOOD SPECIMEN Ordering Facility: [facility] Address: [address] [place] [address] Performed By: #### 1 4196-0, 19248-0 #### [facility] CLIA [id number] [address] [place] [address] LD LACTATE DEHYDROon 023 LDH [Catalytic activity/Vol] 209 U/L 135 - 214 U/L [place] LDH SerPl-cCncon 07-16-2022 LDH [Catalytic activity/Vol] 209 U/L Normal 135-214 [facility] Comment on above: Order Comment: Avis fam Type: BLOOD SPECIMEN Ordering Facility: [facility] Address: [address] [place] [address] Performed By: #### 1 4196-0, 26306-9 #### [facility] CLIA [id number] [address] [place] [address] RETIC COUNTon 07-16-2022 Reticulocytes (Bld) [#/Vol] 0.51202 10*3/uL 0.018 - 0.100 M/uL [place] Retics #on 07-16-2022 Reticulocytes (Bld) [#/Vol] 0.76673 10*3/uL Normal 0.018-0.100 [facility] Comment on above: Order Comment: Avis fam Type: BLOOD SPECIMEN Ordering Facility: [facility] Address: [address] [place] [address] Performed By: #### 5 0190-8, 2276-4, 2284-8 #### [facility] CLIA [id number] [address] [place] [address] [place] Reticulocytes (Bld) [#/Vol]o n 07-16-2022 Reticulocytes/100 RBC (Bld) 1.0 % Normal 0.4-2.0 [facility] Comment on above: Order Comment: Avis fam Type: BLOOD SPECIMEN Ordering Facility: [facility] Address: [address] [place] [address] Performed By: #### 5 0190-8, 2276-4, 2284-8 #### [facility] CLIA [id number] [address] [place] [address] [place] Reticulocytes/100 RBC (Bld) 1.0 % 0.4 - 2.0 % [place] Creatinine and Glomerular fi ltration rate.predicted panel (S/P/Bld)Ordered By: Flo Thomson on 07-12-2022 Creatinine [Mass/Vol] 9.17 mg/dL 0.44-1.03 [facility] Comment on above: Delta: 10.28 on 06/26 Erythrocyte distribution wid th Auto (RBC) [Ratio]Ordered By: Flo Thomson on 07-12-2022 Erythrocyte distribution width (RBC) [Ratio] 16.3 % 11.9-15.3 [facility] Estimated glomerular filtrat ion rate (GFR) non- AmericanOrdered By: Flo Thomson on 07-12-2022 GFR/1.73 sq M.predicted among non-blacks MDRD (S/P/Bld) [Vol rate/Area] 5 mL/Min [facility] Hematocrit Auto (Bld) [Volum e fraction]Ordered By: Fol Thomson on 07-12-2022 Hematocrit (Bld) [Volume fraction] 31.5 % 34.0-46.4 [facility] Hemoglobin [Mass/volume] in BloodOrdered By: Flo Thomson on 07-12-2022 Hemoglobin (Bld) [Mass/Vol] 10.4 g/dL 11.8-15.4 [facility] Laboratory - Chemistry and C hemistry - challengeOrdered By: Pedro Floyd on 07-12-2022 Magnesium [Mass/Vol] 1.1 mg/dL 1.6-2.6 [facility] Leukocytes [#/volume] correc saskia for nucleated erythrocytes in Blood by Automated counOrdered By: Flo Thomson on 07-12-2022 WBC corrected for nucl RBC Auto (Bld) [#/Vol] 13.0 10*3/uL 3.8-11.6 [facility] MCH Auto (RBC) [Entitic mass ]Ordered By: Flo Thomson on 07-12-2022 MCH (RBC) [Entitic mass] 31.3 pg 24.7-34.3 [facility] MCHC Auto (RBC) [Mass/Vol]Or dered By: Flo Thomson on 07-12-2022 MCHC (RBC) [Mass/Vol] 33.1 g/dL 32.0-35.0 [facility] MCV Auto (RBC) [Entitic vol] Ordered By: Flo Thomson on 07-12-2022 MCV (RBC) [Entitic vol] 94.3 fL 80-[address] [facility] No Panel InformationOrdered By: Flo Thomson on 07-12-2022 Estimated GFR () 6 mL/Min [facility] Comment on above: GFR estimated refere nce range: According to KDOQI guidelines, <60 ml/min/1.73m2 is sufficient to diagnose a patient with chronic kidney disease. Pharmacy Creatinine Clearance (Chem 7.79 [facility] Platelet mean volume Auto (B ld) [Entitic vol]Ordered By: Flo Thomson on 07-12-2022 Platelet mean volume (Bld) [Entitic vol] 7.8 fL 6.3-10.7 [facility] Platelets Auto (Bld) [#/Vol] Ordered By: Flo Thomson on 07-12-2022 Platelets (Bld) [#/Vol] 354 10*3/uL 150-450 [facility] RBC Auto (Bld) [#/Vol]Ordere d By: Flo Thomson on 07-12-2022 RBC (Bld) [#/Vol] 3.34 10*6/uL 3.60-5.00 [facility] Serum or plasma anion gap de terminationOrdered By: Flo Thomson on 07-12-2022 Anion gap [Moles/Vol] 14.0 mmol/L 6.0-15.0 [facility] Serum or plasma calcium annalee urement (mass/volume)Ordered By: Flo Thosmon on 07-12-2022 Calcium [Mass/Vol] 8.6 mg/dL 8.2-10.2 [facility] Serum or plasma chloride rodo surement (moles/volume)Ordered By: Flo Thomson on 07-12-2022 Chloride [Moles/Vol] 99 mmol/L 95-114 [facility] Serum or plasma glucose annalee urement (mass/volume)Ordered By: Flo Thomson on 07-12-2022 Glucose [Mass/Vol] 135 mg/dL 70-100 [facility] Comment on above: ADA recommended refe rence rangeRandom Glucose Reference Range is dependent on time and content of last meal. Glucose of more than 200 mg/dL in a nonstressed, ambulatory subject supports the diagnosis of Diabetes Mellitus. Serum or plasma potassium me asurement (moles/volume)Ordered By: Gui Rodas on 07-12-2022 Potassium [Moles/Vol] 3.2 mmol/L 3.5-5.1 [facility] Serum or plasma sodium measu rement (moles/volume)Ordered By: [facility] on 07-12-2022 Sodium [Moles/Vol] 132 mmol/L 136-146 [facility] Serum or plasma total carbon dioxide measurement (moles/volume)Ordered By: [facility] Thomson on 07-12-2022 CO2 [Moles/Vol] 21.7 mmol/L 22.0-30.0 [facility] Serum or plasma urea nitroge n measurement (mass/volume)Ordered By: Flo Thomson on 07-12-2022 Urea nitrogen [Mass/Vol] 41 mg/dL 9-23 [facility] Absolute reticulocyte countO rdered By: Roberto Pollack on 07-11-2022 Reticulocytes (Bld) [#/Vol] 0.021 10*6/uL 0.024-0.084 [facility] Albumin [Mass/volume] in Ser um or PlasmaOrdered By: Flo Thomson on 07-11-2022 Albumin [Mass/Vol] 2.0 g/dL 3.2-5.5 [facility] Basophils Auto (Bld) [#/Vol] Ordered By: [facility] on 07-11-2022 Basophils (Bld) [#/Vol] 0.1 10*3/uL 0.0-0.2 [facility] Basophils/100 WBC Auto (Bld) Ordered By: [facility] Berto on 07-11-2022 Basophils/100 WBC (Bld) 1.0 % . F [facility] CNPDanya 07-11-2022 CNPN Telephone ([place]) -------- TONYShaileshWINNIE ([id number]) 1985 F Date Time Provider Department 07/11/22 CARMEN GOMES During your visit today, we recorded the following information about you: Carmen Gomes RN 07/11/2022 10:[address] requests the hospital draw a retic count on pt. Order phoned to JUNIOR Guadarrama @ [facility] 3T. Order read back for verification. Carmen Gomes RN Allergies As of Date: 07/11/2022 (Not on File) Date Reviewed: Never Reviewed Reason for Visit: Lab Orders [1688] Problem List As Of Date: 07/11/2022 (None) Encounter Status:Closed by CARMEN GOMES on 07/11/22 Normal [facility] Eosinophils Auto (Bld) [#/Vo l]Ordered By: Flo Thomson on 07-11-2022 Eosinophils (Bld) [#/Vol] 0.2 10*3/uL 0.0-0.45 [facility] Eosinophils/100 WBC Auto (Bl d)Ordered By: Flo Thomson on 07-11-2022 Eosinophils/100 WBC (Bld) 2.6 % . [facility] Globulin Calc (S) [Mass/Vol] Ordered By: Flo Thomson on 07-11-2022 Globulin (S) [Mass/Vol] 2.8 g/dL F [facility] Lymphocytes Auto (Bld) [#/Vo l]Ordered By: Flo Thomson on 07-11-2022 Lymphocytes (Bld) [#/Vol] 3.8 10*3/uL 1.00-4.8 [facility] Lymphocytes/100 WBC Auto (Bl d)Ordered By: Flo Thomson on 07-11-2022 Lymphocytes/100 WBC (Bld) 42.3 % . [facility] Monocytes Auto (Bld) [#/Vol] Ordered By: Flo Thomson on 07-11-2022 Monocytes (Bld) [#/Vol] 0.6 10*3/uL 0.0-0.8 [facility] Monocytes/100 WBC Auto (Bld) Ordered By: Flo Thomson on 07-11-2022 Monocytes/100 WBC (Bld) 6.2 % . F [facility] Neutrophils Auto (Bld) [#/Vo l]Ordered By: Flo Thomson on 07-11-2022 Neutrophils (Bld) [#/Vol] 4.3 10*3/uL 1.8-7.7 [facility] Neutrophils/100 WBC Auto (Bl d)Ordered By: Flo Thomson on 07-11-2022 Neutrophils/100 WBC (Bld) 47.9 % . [facility] Nucleated erythrocytes [Pres ence] in Blood by Automated countOrdered By: Flo Thomson on 07-11-2022 Nucleated RBC Auto Ql (Bld) 0.0 /100{WBC} 0-0.5 [facility] Protein [Mass/volume] in Ser um or PlasmaOrdered By: Flo Thomson on 07-11-2022 Protein [Mass/Vol] 4.8 g/dL 6.1-7.9 [facility] Reticulocytes/100 RBC Auto ( Bld)Ordered By: Roberto Pollack on 07-11-2022 Reticulocytes/100 RBC (Bld) 0.7 % 0.5-1.5 [facility] Serum or plasma alanine nair otransferase measurement without P-5'-P (enzymatic activiOrdered By: Flo Thomson on 07-11-2022 ALT No additional P-5'-P [Catalytic activity/Vol] 10 U/L 10-60 [facility] Serum or plasma albumin/glob ulin mass ratioOrdered By: Flo Thomson on 07-11-2022 Albumin/Globulin [Mass ratio] 0.7 {ratio} [facility] Serum or plasma alkaline raegan sphatase measurement (enzymatic activity/volume)Ordered By: Flo Thomson on 07-11-2022 ALP [Catalytic activity/Vol] 84 U/L 32-92 [facility] Serum or plasma aspartate am inotransferase measurement (enzymatic activity/volume)Ordered By: Flo Thomson on 07-11-2022 AST [Catalytic activity/Vol] 14 U/L 10-42 [facility] Serum or plasma total biliru bin measurement (mass/volume)Ordered By: Flo Thomson on 07-11-2022 Bilirubin [Mass/Vol] 0.9 mg/dL 0.3-1.2 [facility] WBC Auto (Bld) [#/Vol]Ordere d By: Flo Thomson on 07-11-2022 WBC (Bld) [#/Vol] 9.0 10*3/uL 3.8-11.6 [facility] Automated erythrocytes count in urine sediment (number/area)Ordered By: Kelly Carmen on 07-10-2022 RBC Auto (Urine sed) [#/Area] 3-4 [HPF] 0-4 [facility] Automated leukocytes count i n urine sediment (number/area)Ordered By: Kelly Carmen on 07-10-2022 WBC Auto (Urine sed) [#/Area] 10-19 [HPF] 0-4 [facility] Bilirubin Test strip Ql (U)O rdered By: Kelly Carmen on 07-10-2022 Bilirubin Ql (U) Negative Negative [facility] Body fluid albumin measureme nt (mass/volume)Ordered By: Tone Martini on 07-10-2022 Albumin (Body fld) [Mass/Vol] 2.1 g/dL 3.2-5.[address] [facility] [address] biopsyOrdered By: Sasha gandara on 07-10-2022 Transferrin [Mass/Vol] 134 mg/dL 180-380 [facility] Color Auto (U)Ordered By: Hortensia Carmen on 07-10-2022 Color (U) Yellow Yellow [facility] Creatinine and Glomerular fi ltration rate.predicted panel (S/P/Bld)Ordered By: Tone Martini on 07-10-2022 Creatinine [Mass/Vol] 10.50 mg/dL 0.44-1.03 [facility] Erythrocyte distribution wid th Auto (RBC) [Ratio]Ordered By: Tone Martini on 07-10-2022 Erythrocyte distribution width (RBC) [Ratio] 16.8 % 11.9-15.3 [facility] Erythrocyte distribution wid th Auto (RBC) [Ratio]Ordered By: Pedro Floyd on 07-10-2022 Erythrocyte distribution width (RBC) [Ratio] 16.2 % 11.9-15.3 [facility] Estimated glomerular filtrat ion rate (GFR) non- AmericanOrdered By: Tone Martini on 07-10-2022 GFR/1.73 sq M.predicted among non-blacks MDRD (S/P/Bld) [Vol rate/Area] 4 mL/Min [facility] Fecal occult blood detection by immunochemistryOrdered By: Kelly Carmen on 07-10-2022 Hemoglobin.gastrointest inal Ql (Stl) [facility] Ferritin [Mass/volume] in Se rum or PlasmaOrdered By: Pedro Floyd on 07-10-2022 Ferritin [Mass/Vol] 455.0 ng/mL 11-306.8 [facility] Folate [Mass/volume] in Seru m or PlasmaOrdered By: Pedro Floyd on 07-10-2022 Folate [Mass/Vol] 5.9 ng/mL >5.9 [facility] Comment on above: Folate reference ran ge: >5.9 ng/mlThe WHO technical consultation on folate and vitamin [id number] has determined that folate concentrations lessthan 4 ng/ml are considered deficient. Globulin Calc (S) [Mass/Vol] Ordered By: Tone Martini on 07-10-2022 Globulin (S) [Mass/Vol] 3.1 g/dL [facility] HCG ( test) IA.rapi d Ql (U)Ordered By: Kelly Carmen on 07-10-2022 HCG ( test) Ql (U) Negative [facility] Haptoglobin [Mass/volume] in Serum or PlasmaOrdered By: Pedro Floyd on 07-10-2022 Haptoglobin [Mass/Vol] 112 mg/dL 37-246 [facility] Hematocrit Auto (Bld) [Volum e fraction]Ordered By: Tone Martini on 07-10-2022 Hematocrit (Bld) [Volume fraction] 19.9 % 34.0-46.4 [facility] Hematocrit Auto (Bld) [Volum e fraction]Ordered By: Pedro Floyd on 07-10-2022 Hematocrit (Bld) [Volume fraction] 19.1 % 34.0-46.4 [facility] Comment on above: Critical Result HCT: 19.1 called to and read back by: KATIE WHITTEN on 07/10/2022 14:24:29 by:CR. Hemoglobin [Mass/volume] in BloodOrdered By: Tone Martini on 07-10-2022 Hemoglobin (Bld) [Mass/Vol] 6.5 g/dL 11.8-15.4 [facility] Hemoglobin [Mass/volume] in BloodOrdered By: Pedro Floyd on 07-10-2022 Hemoglobin (Bld) [Mass/Vol] 6.2 g/dL 11.8-15.4 [facility] Iron [Mass/volume] in Serum or PlasmaOrdered By: Pedro Floyd on 07-10-2022 Iron [Mass/Vol] 174 ug/dL 40-150 [facility] Iron binding capacity [Mass/ volume] in Serum or PlasmaOrdered By: Pedro Veerett on 07-10-2022 Iron binding capacity [Mass/Vol] 188 ug/dL 255-450 [facility] Iron saturation [Mass Fracti on] in Serum or PlasmaOrdered By: Pedro Floyd on 07-10-2022 Iron saturation [Mass fraction] 92.6 % 20-50 [facility] Ketones Auto test strip (U) [Mass/Vol]Ordered By: Kelly Carmen on 07-10-2022 Ketones (U) [Mass/Vol] Negative Negative [facility] Laboratory - Chemistry and C hemistry - challengeOrdered By: Pedro Floyd on 07-10-2022 Cobalamin (Vitamin B12) [Mass/Vol] 360 pg/mL 180-914 [facility] - Chemistry and C hemistry - challengeOrdered By: Tone Martini on 07-10-2022 Lipase [Catalytic activity/Vol] 53.0 U/L 22-51 [facility] - UrinalysisOrder ed By: Kelly Carmen on 07-10-2022 Hyaline casts LM Ql (Urine sed) 0-8 [LPF] 0-8 [facility] Lactate dehydrogenase measur ement (enzymatic activity/volume)Ordered By: Pedro Floyd on 07-10-2022 LDH (Unsp spec) [Catalytic activity/Vol] 196 U/L 45-190 [facility] Leukocytes [#/volume] correc [place] for nucleated erythrocytes in Blood by Automated counOrdered By: Tone Martini on 07-10-2022 WBC corrected for nucl RBC Auto (Bld) [#/Vol] 7.5 10*3/uL 3.8-11.6 [facility] Leukocytes [#/volume] correc [place]ask[place] for nucleated erythrocytes in Blood by Automated counOrdered By: Pedro Floyd on 07-10-2022 WBC corrected for nucl RBC Auto (Bld) [#/Vol] 6.9 10*3/uL 3.8-11.6 [facility] MCH Auto (RBC) [Entitic mass ]Ordered By: Tone Martini on 07-10-2022 MCH (RBC) [Entitic mass] 31.6 pg 24.7-34.3 [facility] MCH Auto (RBC) [Entitic mass ]Ordered By: Pedro Floyd on 07-10-2022 MCH (RBC) [Entitic mass] 31.4 pg 24.7-34.3 [facility] MCHC Auto (RBC) [Mass/Vol]Or dered By: Tone Martini on 07-10-2022 MCHC (RBC) [Mass/Vol] 32.7 g/dL 32.0-35.0 [facility] MCHC Auto (RBC) [Mass/Vol]Or dered By: Pedro Floyd on 07-10-2022 MCHC (RBC) [Mass/Vol] 32.6 g/dL 32.0-35.0 [facility] MCV Auto (RBC) [Entitic vol] Ordered By: Tone Martini on 07-10-2022 MCV (RBC) [Entitic vol] 96.6 fL 80-[address] [facility] MCV Auto (RBC) [Entitic vol] Ordered By: Pedro Floyd on 07-10-2022 MCV (RBC) [Entitic vol] 96.5 fL 80-[address] [facility] Nitrite Test strip Ql (U)Ord ered By: Kelly Carmen on 07-10-2022 Nitrite Ql (U) Negative Negative [facility] No Panel InformationOrdered By: Tone Martini on 07-10-2022 Estimated GFR () 5 mL/Min [facility] Comment on above: GFR estimated refere nce range: According to KDOQI guidelines, <60 ml/min/1.73m2 is sufficient to diagnose a patient with chronic kidney disease. Pharmacy Creatinine Clearance (Chem 6.72 [facility] No Panel InformationOrdered By: Pedro Floyd on 07-10-2022 Slides for Pathologist Review Ordered path review [facility] Platelet mean volume Auto (B ld) [Entitic vol]Ordered By: Tone Martini on 07-10-2022 Platelet mean volume (Bld) [Entitic vol] 7.7 fL 6.3-10.7 [facility] Platelet mean volume Auto (B ld) [Entitic vol]Ordered By: Pedro Floyd on 07-10-2022 Platelet mean volume (Bld) [Entitic vol] 7.6 fL 6.3-10.7 [facility] Platelets Auto (Bld) [#/Vol] Ordered By: Tone Martini on 07-10-2022 Platelets (Bld) [#/Vol] 334 10*3/uL 150-450 [facility] Platelets Auto (Bld) [#/Vol] Ordered By: Pedro Floyd on 07-10-2022 Platelets (Bld) [#/Vol] 307 10*3/uL 150-450 [facility] Protein Auto test strip (U) [Mass/Vol]Ordered By: Kelly Carmen on 07-10-2022 Protein (U) [Mass/Vol] 30 mg/dL Negative [facility] Protein [Mass/volume] in Ser um or PlasmaOrdered By: Tone Martini on 07-10-2022 Protein [Mass/Vol] 5.2 g/dL 6.1-7.9 [facility] RBC Auto (Bld) [#/Vol]Ordere d By: Tone Martini on 07-10-2022 RBC (Bld) [#/Vol] 2.06 10*6/uL 3.60-5.00 [facility] RBC Auto (Bld) [#/Vol]Ordere d By: Pedro Floyd on 07-10-2022 RBC (Bld) [#/Vol] 1.98 10*6/uL 3.60-5.00 [facility] Serum or plasma alanine nair otransferase measurement without P-5'-P (enzymatic activiOrdered By: Tone Martini on 07-10-2022 ALT No additional P-5'-P [Catalytic activity/Vol] 12 U/L 10-60 [facility] Serum or plasma albumin/glob ulin mass ratioOrdered By: Tone Martini on 07-10-2022 Albumin/Globulin [Mass ratio] 0.7 {ratio} [facility] Serum or plasma alkaline raegan sphatase measurement (enzymatic activity/volume)Ordered By: Tone Martini on 07-10-2022 ALP [Catalytic activity/Vol] 78 U/L 32-92 [facility] Serum or plasma anion gap de terminationOrdered By: Tone Martini on 07-10-2022 Anion gap [Moles/Vol] 17.4 mmol/L 6.0-15.0 [facility] Serum or plasma aspartate am inotransferase measurement (enzymatic activity/volume)Ordered By: Tone Martini on 07-10-2022 AST [Catalytic activity/Vol] 15 U/L 10-42 [facility] Serum or plasma calcium annalee urement (mass/volume)Ordered By: Tone Martini on 07-10-2022 Calcium [Mass/Vol] 8.3 mg/dL 8.2-10.2 [facility] Serum or plasma chloride rodo surement (moles/volume)Ordered By: Tone Martini on 07-10-2022 Chloride [Moles/Vol] 91 mmol/L 95-114 [facility] Serum or plasma glucose annalee urement (mass/volume)Ordered By: Tone Martini on 07-10-2022 Glucose [Mass/Vol] 72 mg/dL 70-100 [facility] Comment on above: ADA recommended refe rence rangeRandom Glucose Reference Range is dependent on time and content of last meal. Glucose of more than 200 mg/dL in a nonstressed, ambulatory subject supports the diagnosis of Diabetes Mellitus. Serum or plasma potassium me asurement (moles/volume)Ordered By: Tone Martini on 07-10-2022 Potassium [Moles/Vol] 4.5 mmol/L 3.5-5.1 [facility] Serum or plasma sodium measu rement (moles/volume)Ordered By: Tone Martini on 07-10-2022 Sodium [Moles/Vol] 129 mmol/L 136-146 [facility] Serum or plasma total biliru bin measurement (mass/volume)Ordered By: Tone Martini on 07-10-2022 Bilirubin [Mass/Vol] 0.6 mg/dL 0.3-1.2 [facility] Serum or plasma total carbon dioxide measurement (moles/volume)Ordered By: Tone Martini on 07-10-2022 CO2 [Moles/Vol] 25.1 mmol/L 22.0-30.0 [facility] Serum or plasma urea nitroge n measurement (mass/volume)Ordered By: Tone Martini on 07-10-2022 Urea nitrogen [Mass/Vol] 53 mg/dL 9-23 [facility] Specific gravity Auto test s trip (U) [Rel density]Ordered By: Kelly Carmen on 07-10-2022 Specific gravity (U) [Rel density] 1.008 1.001-1.030 [facility] Squamous epithelial cells de tection in urine sediment by light microscopyOrdered By: Kelly Carmen on 07-10-2022 Epithelial cells.squamous LM Ql (Urine sed) 10-19 [HPF] 0-2 [facility] Urine bacteria detection by automated methodOrdered By: Kelly Carmen on 07-10-2022 Bacteria Auto Ql (U) 1+ None Seen [facility] Urine clarity by refractomet ry automatedOrdered By: Kelly Carmen on 07-10-2022 Clarity Refractometry automated (U) Clear Clear [facility] Urine glucose measurement by automated test strip (mass/volume)Ordered By: Kelly Carmen on 07-10-2022 Glucose Auto test strip (U) [Mass/Vol] Normal mg/dL Normal [facility] Urine hemoglobin detection b y automated test stripOrdered By: Kelly Carmen on 07-10-2022 Hemoglobin Auto test strip Ql (U) Negative Negative [facility] Urine leukocyte esterase det ection by automated test stripOrdered By: Kelly Carmen on 07-10-2022 Leukocyte esterase Auto test strip Ql (U) 3+ Negative [facility] Urine sediment renal epithel ial cell count by microscopy (number/high power field)Ordered By: Kelly Carmen on 07-10-2022 Epithelial cells.renal LM.HPF (Urine sed) [#/Area] None seen [HPF] 0-1 [facility] Urobilinogen Auto test strip (U) [Mass/Vol]Ordered By: Kelly Carmen on 07-10-2022 Urobilinogen (U) [Mass/Vol] Normal mg/dL Normal [facility] pH Auto test strip (U)Ordere d By: Kelly Carmen on 07-10-2022 pH (U) 7.5 [pH] 5.0-9.0 [facility] CALCIUMon 07-08-2022 Calcium [Mass/Vol] 8.5 mg/dL Low 8.6-10.5 [facility] Comment on above: Performed By: #### C HM7, IPB, LDLB, HDL, MGO, HFP, TRIG, CHOL, CA #### [facility] (DEFAULT) [address] [place] [address] Calcium [Mass/Vol] 8.5 mg/dL Low 8.6 - 10. 5 mg/dL [facility] CBC,PLATELETSon 07-08-2022 Hematocrit (Bld) [Volume fraction] 21.8 % Low 34.9-44.3 [facility] Comment on above: Performed By: #### A 1CB, HEMOGC #### [facility] (DEFAULT) [address] [place] [address] Hemoglobin (Bld) [Mass/Vol] 6.9 g/dL Critically low 11.4-15.2 [facility] Comment on above: Result Comment: This result has been called to KIAN ROBLERO RN by Joey Kruger on 07 08 2022 at 1543, and has been read back. Performed By: #### Rylee BORGES, HEMOGC #### [facility] (DEFAULT) [address] [place] [id number] MCV (RBC) [Entitic vol] 99.1 fL High 79.6-97.7 [facility] Comment on above: Performed By: #### A KATERINA, HEMOGC #### [facility] (DEFAULT) [address] [address] Mean Cell Hgb 31.4 pg Normal 25.9-33.9 [facility] Comment on above: Performed By: #### Rylee BORGES, HEMOGC #### [facility] (DEFAULT) [address] [address] Mean Cell Hgb Conc 31.7 g/dL Normal 31.4-35.9 [facility] Comment on above: Performed By: #### Rylee BORGES, HEMOGC #### [facility] (DEFAULT) [address] [place] [address] Platelet mean volume (Bld) [Entitic vol] 10.0 fL Normal 8.5-12.2 [facility] Comment on above: Performed By: #### Rylee BORGES, HEMOGC #### [facility] (DEFAULT) [address] [place] [address] Platelets (Bld) [#/Vol] 344 10*3/uL Normal 150-393 [facility] Comment on above: Performed By: #### Rylee BORGES, HEMOGC #### [facility] (DEFAULT) [address] [address] RBC (Bld) [#/Vol] 2.20 10*6/uL Low 3.91-5.04 [facility] Comment on above: Performed By: #### Rylee BORGES, HEMOGC #### [facility] (DEFAULT) [address] [place] [address] RBC Distribution 16.4 % High 10.8-14.9 [facility] Comment on above: Performed By: #### A 1CB, HEMOGC #### [facility] (DEFAULT) [address] [place] [address] WBC (Bld) [#/Vol] 10.07 10*3/uL Normal 3.99-11.19 [facility] Comment on above: Performed By: #### A 1CB, HEMOGC #### [facility] (DEFAULT) [address] [place] [address] Erythrocyte distribution width (RBC) [Ratio] 16.4 % High 10.8 - 14.9 % [facility] Hematocrit (Bld) [Volume fraction] 21.8 % Low 34.9 - 44.3 % [facility] Hemoglobin (Bld) [Mass/Vol] 6.9 g/dL Critically low 11.4 - 15.2 g/dL [facility] Comment on above: This result has been called to KIAN ROBLERO RN by Joey Kruger on 07 08 2022 at 1543, and has been read back. Interpretation and review of laboratory results Abnormal [facility] MCH (RBC) [Entitic mass] 31.4 pg 25.9 - 33.9 pg [facility] MCHC (RBC) [Mass/Vol] 31.7 g/dL 31.4 - 35.9 g/dL [facility] MCV (RBC) [Entitic vol] 99.1 fL High 79.6 - 97.7 fL [facility] Platelet mean volume (Bld) [Entitic vol] 10.0 fL 8.5 - 12.2 fL [facility] Platelets (Bld) [#/Vol] 344 10*3/uL 150 - 393 K/uL [facility] RBC (Bld) [#/Vol] 2.20 10*6/uL Low [facility] WBC (Bld) [#/Vol] 10.07 10*3/uL 3.99 - 11 .19 K/uL [facility] CHEM 7 (LYTES,BUN,CREA,GLUC) on 07-08-2022 Anion gap [Moles/Vol] 16 mmol/L Normal 7-17 [facility] Comment on above: Performed By: #### C HM7, IPB, LDLB, HDL, MGO, HFP, TRIG, CHOL, CA #### [facility] (DEFAULT) [address] [place] [address] Chloride [Moles/Vol] 95 mmol/L Low 98-108 [facility] Comment on above: Performed By: #### C HM7, IPB, LDLB, HDL, MGO, HFP, TRIG, CHOL, CA #### [facility] (DEFAULT) [address] [place] [address] CO2 [Moles/Vol] 29 mmol/L Normal 21-31 [facility] Comment on above: Performed By: #### C HM7, IPB, LDLB, HDL, MGO, HFP, TRIG, CHOL, CA #### [facility] (DEFAULT) [address] [place] [address] Creatinine [Mass/Vol] 8.87 mg/dL High 0.50-1.20 [facility] Comment on above: Performed By: #### C HM7, IPB, LDLB, HDL, MGO, HFP, TRIG, CHOL, CA #### [facility] (DEFAULT) [address] [place] [address] GFR/1.73 sq M.predicted among non-blacks MDRD (S/P/Bld) [Vol rate/Area] 5 mL/min/{1.73_m2} Low >=60 [facility] Comment on above: Result Comment: Repo rted eGFR is based on the CKD-EPI 2020 equation using creatinine, age, and sex. Performed By: #### C HM7, IPB, LDLB, HDL, MGO, HFP, TRIG, CHOL, CA #### [facility] (DEFAULT) [address] [place] [address] Glucose [Mass/Vol] 84 mg/dL Normal 70-99 [facility] Comment on above: Performed By: #### C HM7, IPB, LDLB, HDL, MGO, HFP, TRIG, CHOL, CA #### [facility] (DEFAULT) [address] [place] [address] Osmolality [Osmolality] 295 mosm/kg Normal 278-305 [facility] Comment on above: Performed By: #### C HM7, IPB, LDLB, HDL, MGO, HFP, TRIG, CHOL, CA #### [facility] (DEFAULT) [address] [place] [address] Potassium [Moles/Vol] 4.3 mmol/L Normal 3.5-5.0 [facility] Comment on above: Performed By: #### C HM7, IPB, LDLB, HDL, MGO, HFP, TRIG, CHOL, CA #### [facility] (DEFAULT) [address] [place] [address] Sodium [Moles/Vol] 136 mmol/L Normal 135-145 [facility] Comment on above: Performed By: #### C HM7, IPB, LDLB, HDL, MGO, HFP, TRIG, CHOL, CA #### [facility] (DEFAULT) [address] [place] [address] Urea nitrogen [Mass/Vol] 42 mg/dL High 7-25 [facility] Comment on above: Performed By: #### C HM7, IPB, LDLB, HDL, MGO, HFP, TRIG, CHOL, CA #### [facility] (DEFAULT) [address] [place] [address] Urea nitrogen/Creatinine [Mass ratio] 5 mg/mg Normal [facility] Comment on above: Performed By: #### C HM7, IPB, LDLB, HDL, MGO, HFP, TRIG, CHOL, CA #### [facility] (DEFAULT) [address] [place] [address] Anion gap [Moles/Vol] 16 mmol/L 7 - 17 mmol/L [facility] Chloride [Moles/Vol] 95 mmol/L Low 98 - 10 8 mmol/L [facility] CO2 [Moles/Vol] 29 mmol/L 21 - 31 mmol/L [facility] Creatinine [Mass/Vol] 8.87 mg/dL High 0.50 - 1.20 mg/dL [facility] GFR/1.73 sq M.predicted CKD-EPI (S/P/Bld) [Vol rate/Area] 5 Low - PINF [facility] Comment on above: Reported eGFR is bas ed on the CKD-EPI 2020 equation using creatinine, age, and sex. Glucose [Mass/Vol] 84 mg/dL 70 - 99 mg/dL [facility] Osmolality Calc [Osmolality] 295 [facility] Potassium [Moles/Vol] 4.3 mmol/L 3.5 - 5.0 mmol/L [facility] Sodium [Moles/Vol] 136 mmol/L 135 - 145 mmol/L [facility] Urea nitrogen [Mass/Vol] 42 mg/dL High 7 - 25 mg/dL [facility] Urea nitrogen/Creatinine [Mass ratio] 5 mg/mg [facility] CHOLESTEROL TOTALOrdered By: Nirmal Allen on 07-08-2022 Cholesterol [Mass/Vol] 178 mg/dL NINF - 200 mg/dL [facility] Comment on above: [<200 mg/dL: Desirab le] [200-239 mg/dL: Borderline High] [>239 mg/dL: High] Interpretation and review of laboratory results Normal [facility] CHOLESTEROL TOTALon 07-08-19 Cholesterol [Mass/Vol] 178 mg/dL Normal <200 [facility] Comment on above: Result Comment: [<20 0 mg/dL: Desirable] [200-239 mg/dL: Borderline High] [>239 mg/dL: High] Performed By: #### C HM7, IPB, LDLB, HDL, MGO, HFP, TRIG, CHOL, CA #### [facility] (DEFAULT) [address] [place] [address] CYCLOSPORINE LEVEL , 2HROrde red By: Sarahy Coronado on 07-08-2022 cycloSPORINE 2 Hr post dose (Bld) [Mass/Vol] 764 ng/mL [facility] Method performed is a chemiluminescent microparticle immunoasssay on the [employer] i2000. [facility] CYCLOSPORINE LEVEL , 2HRon 0 07-08-2022 Cyclosporin, 2Hr Post 764 ng/mL Normal Therap eutic Range: 320-960 ng/mL [facility] Comment on above: Order Comment: Metho d performed is a chemiluminescent microparticle immunoasssay on the [employer] i2000. Performed By: #### C HM7, IPB, LDLB, HDL, MGO, HFP, TRIG, CHOL, CA #### [facility] (DEFAULT) [address] [place] [address] HDL CHOLESTEROLon 07-08-2022 Cholesterol in HDL [Mass/Vol] 71 mg/dL 40 - PINF mg/dL [facility] Interpretation and review of laboratory results Normal [facility] Cholesterol in HDL [Mass/Vol] 71 mg/dL Normal >=40 [facility] Comment on above: Performed By: #### C HM7, IPB, LDLB, HDL, MGO, HFP, TRIG, CHOL, CA #### [facility] (DEFAULT) [address] [place] [address] HEMOGLOBIN [id number] By: Jeovanny Oconnell on 07-08-2022 Average glucose Estimated from glycated hemoglobin (Bld) [Mass/Vol] 100 mg/dL [facility] HbA1c (Bld) [Mass fraction] 5.1 % 4.7 - 5.6 % [facility] HEMOGLOBIN A1Con 07-08-2022 Glucose [Mass/Vol] 100 mg/dL Normal [facility] Comment on above: Performed By: #### C HM7, IPB, LDLB, HDL, MGO, HFP, TRIG, CHOL, CA #### [facility] (DEFAULT) [address] [place] [address] Hemoglobin A1C HPLC 5.1 % Normal 4.7-5.6 [facility] Comment on above: Performed By: #### C HM7, IPB, LDLB, HDL, MGO, HFP, TRIG, CHOL, CA #### [facility] (DEFAULT) [address] [place] [address] HEPATIC FUNCTION PANELon Albumin [Mass/Vol] 2.9 g/dL Low 3.5-5.0 [facility] Comment on above: Performed By: #### C HM7, IPB, LDLB, HDL, MGO, HFP, TRIG, CHOL, CA #### [facility] (DEFAULT) [address] [place] [address]753 ALP [Catalytic activity/Vol] 96 U/L Normal 32-126 [facility] Comment on above: Performed By: #### C HM7, IPB, LDLB, HDL, MGO, HFP, TRIG, CHOL, CA #### [facility] (DEFAULT) [address] [place] [address] 01512 ALT [Catalytic activity/Vol] 12 U/L Normal 9-48 [facility] Comment on above: Performed By: #### C HM7, IPB, LDLB, HDL, MGO, HFP, TRIG, CHOL, CA #### [facility] (DEFAULT) [address] [place] [address] 10967 AST [Catalytic activity/Vol] 10 U/L Normal 10-39 [facility] Comment on above: Performed By: #### C HM7, IPB, LDLB, HDL, MGO, HFP, TRIG, CHOL, CA #### [facility] (DEFAULT) [address] [place] [address] 89299 Bilirubin [Mass/Vol] 0.8 mg/dL Normal <1.5 [facility] Comment on above: Performed By: #### C HM7, IPB, LDLB, HDL, MGO, HFP, TRIG, CHOL, CA #### [facility] (DEFAULT) [address] [place] [address] 77324 Bilirubin.indirect [Mass/Vol] 0.2 mg/dL Normal <0.3 [facility] Comment on above: Performed By: #### C HM7, IPB, LDLB, HDL, MGO, HFP, TRIG, CHOL, CA #### [facility] (DEFAULT) [address] [place] [address] 76110 Protein [Mass/Vol] 5.7 g/dL Low 6.4-8.3 [facility] Comment on above: Performed By: #### C HM7, IPB, LDLB, HDL, MGO, HFP, TRIG, CHOL, CA #### [facility] (DEFAULT) [address] [place] [address] 94340 Albumin [Mass/Vol] 2.9 g/dL Low 3.5 - 5.0 g/dL [facility] ALP [Catalytic activity/Vol] 96 U/L 32 - 126 U/L [facility] ALT [Catalytic activity/Vol] 12 U/L 9 - 48 U/L [facility] AST [Catalytic activity/Vol] 10 U/L 10 - 39 U/L [facility] Bilirubin [Mass/Vol] 0.8 mg/dL NINF - 1.5 mg/dL [facility] Bilirubin.direct [Mass/Vol] 0.2 mg/dL NINF - 0.3 mg/dL [facility] Protein [Mass/Vol] 5.7 g/dL Low 6.4 - 8.3 g/dL [facility] LDL, DIRECT MEASUREon 2022 Cholesterol in LDL [Mass/Vol] 103 mg/dL High NINF - 100 mg/dL [facility] Comment on above: [<100 mg/dL: Optimal ] [100-129 mg/dL: Near Optimal] [130-159 mg/dL: Borderline High] [160-189 mg/dL: High] [>189 mg/dL: Very High] Interpretation and review of laboratory results Abnormal [facility] LDL Cholesterol - Direct Measure 103 mg/dL High <100 [facility] Comment on above: Result Comment: [<10 0 mg/dL: Optimal] [100-129 mg/dL: Near Optimal] [130-159 mg/dL: Borderline High] [160-189 mg/dL: High] [>189 mg/dL: Very High] Performed By: #### C HM7, IPB, LDLB, HDL, MGO, HFP, TRIG, CHOL, CA #### [facility] (DEFAULT) [address] [place] [address]993 MAGNESIUMon 07-08-2022 Magnesium [Mass/Vol] 1.3 mg/dL Low 1.6-2.6 [facility] Comment on above: Performed By: #### C HM7, IPB, LDLB, HDL, MGO, HFP, TRIG, CHOL, CA #### [facility] (DEFAULT) [address] [place] [address] 94191 Magnesium [Mass/Vol] 1.3 mg/dL Low 1.6 - 2 .6 mg/dL [facility] No Panel Informationon 07-08 Interpretation and review of laboratory results Abnormal [facility] PHOSPHATE, INORGANICon 07-08 Phosphorous 3.9 mg/dL Normal 2.2-4.6 [facility] Comment on above: Performed By: #### C HM7, IPB, LDLB, HDL, MGO, HFP, TRIG, CHOL, CA #### [facility] (DEFAULT) [address] [place] [address] 52692 Interpretation and review of laboratory results Normal [facility] Phosphate [Mass/Vol] 3.9 mg/dL 2.2 - 4 .6 mg/dL [facility] TRIGLYCERIDEOrdered By: Aron Boudreaux on 07-08-2022 Interpretation and review of laboratory results Abnormal [facility] Triglyceride [Mass/Vol] 164 mg/dL High NINF - 150 mg/dL [facility] Comment on above: [<150 mg/dL: Desirab le] [150-199 mg/dL: Borderline] [200-499 mg/dL: High] [>500 mg/dL: Very High] [facility] TRIGLYCERIDEon 07-08-2022 Triglyceride [Mass/Vol] 164 mg/dL High <150 [facility] Comment on above: Result Comment: [<15 0 mg/dL: Desirable] [150-199 mg/dL: Borderline] [200-499 mg/dL: High] [>500 mg/dL: Very High] Performed By: #### C HM7, IPB, LDLB, HDL, MGO, HFP, TRIG, CHOL, CA #### [facility] (DEFAULT) [address] [place] [address] Folate [Mass/volume] in Seru m or PlasmaOrdered By: Tima Lara on 03-28-2022 Folate [Mass/Vol] ng/mL >5.9 [facility] Comment on above: Folate reference ran ge: >5.9 ng/mlThe WHO technical consultation on folate and vitamin [id number] has determined that folate concentrations lessthan 4 ng/ml are considered deficient. Laboratory - Chemistry and C hemistry - challengeOrdered By: Tima Lara on 03-28-2022 Cobalamin (Vitamin B12) [Mass/Vol] 620 pg/mL 180-914 [facility] Basophils Auto (Bld) [#/Vol] Ordered By: Joseph Mcbride on 02-18-2022 Basophils (Bld) [#/Vol] 0.1 10*3/uL 0.0-0.2 [facility] Basophils/100 WBC Auto (Bld) Ordered By: Joseph Mcbride on 02-18-2022 Basophils/100 WBC (Bld) 1.5 % . F [facility] Blood cyclosporine measureme nt by LC-MS/MS (mass/volume)Ordered By: Joseph Mcbride on 02-18-2022 cycloSPORINE LC/MS/MS (Bld) [Mass/Vol] 829 ng/mL 100-400 [facility] Comment on above: This test was develo ped and its performance characteristicsdetermined by [facility]. It has not been cleared orapproved by the Food and Drug Administration. Therapeutic: Renal Transplant 100 - 250 Liver Transplant 100 - 400 Cardiac Transplant 100 - 400 Bone Marrow 200 - 300Assay performed by Liquid Chromatography TandemMass Spectrometry (LC-MS/MS)If preferred testing methodology for Cyclosporine isLiquid Chromatography Tandem Mass Spectrometry(LC-MS/MS) please use test code 139175. For testingperformed by Immunoassay, please use test code 218314.Patient drug level exceeds published reference range.Evaluate clinically for signs of potential toxicity.Performed at: [facility] [address] [id number] Director: Rabia Oreilly MD, Phone: [phone] Body fluid albumin measureme nt (mass/volume)Ordered By: Joseph Mcbride on 02-18-2022 Albumin (Body fld) [Mass/Vol] 2.2 g/dL 3.2-5.5 [facility] Creatinine [Mass/volume] in UrineOrdered By: Joseph Mcbride on 02-18-2022 Creatinine (U) [Mass/Vol] 169.4 mg/dL [facility] Comment on above: No reference range e stablished Creatinine and Glomerular fi ltration rate.predicted panel (S/P/Bld)Ordered By: Joseph Mcbride on 02-18-2022 Creatinine [Mass/Vol] 8.02 mg/dL 0.44-1.03 [facility] Eosinophils Auto (Bld) [#/Vo l]Ordered By: Joseph Mcbride on 02-18-2022 Eosinophils (Bld) [#/Vol] 0.1 10*3/uL 0.0-0.45 [facility] Eosinophils/100 WBC Auto (Bl d)Ordered By: Joseph Mcbride on 02-18-2022 Eosinophils/100 WBC (Bld) 2.3 % . [facility] Erythrocyte distribution wid th Auto (RBC) [Ratio]Ordered By: Joseph Mcbride on 02-18-2022 Erythrocyte distribution width (RBC) [Ratio] 19.0 % 11.9-15.3 [facility] Estimated glomerular filtrat ion rate (GFR) non- AmericanOrdered By: Joseph Mcbride on 02-18-2022 GFR/1.73 sq M.predicted among non-blacks MDRD (S/P/Bld) [Vol rate/Area] 6 mL/Min [facility] Globulin Calc (S) [Mass/Vol] Ordered By: Joseph Mcbride on 02-18-2022 Globulin (S) [Mass/Vol] 2.9 g/dL F [facility] Hematocrit Auto (Bld) [Volum e fraction]Ordered By: Joseph Mcbride on 02-18-2022 Hematocrit (Bld) [Volume fraction] 27.2 % 34.0-46.4 [facility] Hemoglobin [Mass/volume] in BloodOrdered By: Joseph Mcbride on 02-18-2022 Hemoglobin (Bld) [Mass/Vol] 8.8 g/dL 11.8-15.4 [facility] Laboratory - Chemistry and C hemistry - challengeOrdered By: Joseph Mcbride on 02-18-2022 Amylase [Catalytic activity/Vol] 247 U/L 7-64 [facility] Magnesium [Mass/Vol] 1.5 mg/dL 1.6-2.6 [facility] Laboratory - Hematology and Cell countsOrdered By: Joseph Mcbride on 02-18-2022 Nucleated RBC/100 WBC (Bld) [Ratio] 0.1 % 0-0.5 [facility] Leukocytes [#/volume] in Blo od by Automated countOrdered By: Joseph Mcbride on 02-18-2022 WBC (Bld) [#/Vol] 6.1 10*3/uL 4.5-11.0 [facility] Lymphocytes Auto (Bld) [#/Vo l]Ordered By: Joseph Mcbride on 02-18-2022 Lymphocytes (Bld) [#/Vol] 1.9 10*3/uL 1.00-4.8 [facility] Lymphocytes/100 WBC Auto (Bl d)Ordered By: Joseph Mcbride on 02-18-2022 Lymphocytes/100 WBC (Bld) 31.7 % . [facility] MCH Auto (RBC) [Entitic mass ]Ordered By: Joseph Mcbride on 02-18-2022 MCH (RBC) [Entitic mass] 32.5 pg 24.7-34.3 [facility] MCHC Auto (RBC) [Mass/Vol]Or dered By: Joseph Mcbride on 02-18-2022 MCHC (RBC) [Mass/Vol] 32.3 g/dL 32.0-35.0 [facility] MCV Auto (RBC) [Entitic vol] Ordered By: Joseph Mcbride on 02-18-2022 MCV (RBC) [Entitic vol] 100.6 fL 80-[address] [facility] Monocytes Auto (Bld) [#/Vol] Ordered By: Joseph Mcbride on 02-18-2022 Monocytes (Bld) [#/Vol] 0.6 10*3/uL 0.0-0.8 [facility] Monocytes/100 WBC Auto (Bld) Ordered By: Joseph Mcbride on 02-18-2022 Monocytes/100 WBC (Bld) 9.8 % . F [facility] Neutrophils Auto (Bld) [#/Vo l]Ordered By: Joseph Mcbride on 02-18-2022 Neutrophils (Bld) [#/Vol] 3.3 10*3/uL 1.8-7.7 [facility] Neutrophils/100 WBC Auto (Bl d)Ordered By: Joseph Mcbride on 02-18-2022 Neutrophils/100 WBC (Bld) 54.7 % . [facility] No Panel InformationOrdered By: Joseph Mcbride on 02-18-2022 Estimated GFR () 7 mL/Min [facility] Comment on above: GFR estimated refere nce range: According to KDOQI guidelines, <60 ml/min/1.73m2 is sufficient to diagnose a patient with chronic kidney disease. Pharmacy Creatinine Clearance (Chem N/A [facility] Phosphate [Mass/volume] in S jie or PlasmaOrdered By: Joesph Mcbride on 02-18-2022 Phosphate [Mass/Vol] 5.2 mg/dL 2.5-4.6 [facility] Platelet mean volume Auto (B ld) [Entitic vol]Ordered By: Joseph Mcbride on 02-18-2022 Platelet mean volume (Bld) [Entitic vol] 8.6 fL 6.3-10.7 [facility] Platelets Auto (Bld) [#/Vol] Ordered By: Joseph Mcbride on 02-18-2022 Platelets (Bld) [#/Vol] 399 10*3/uL 150-450 [facility] Protein [Mass/volume] in Ser um or PlasmaOrdered By: Joseph Mcbride on 02-18-2022 Protein [Mass/Vol] 5.1 g/dL 6.1-7.9 [facility] Protein [Mass/volume] in Uri neOrdered By: Joseph Mcbride on 02-18-2022 Protein (U) [Mass/Vol] 28 mg/dL 0-9 [facility] RBC Auto (Bld) [#/Vol]Ordere d By: Joseph Mcbride on 02-18-2022 RBC (Bld) [#/Vol] 2.71 10*6/uL 3.60-5.00 [facility] Serum or plasma alanine nair otransferase measurement without P-5'-P (enzymatic activiOrdered By: Joseph Mcbride on 02-18-2022 ALT No additional P-5'-P [Catalytic activity/Vol] 14 U/L 10-60 [facility] Serum or plasma albumin/glob ulin mass ratioOrdered By: Joseph Mcbride on 02-18-2022 Albumin/Globulin [Mass ratio] 0.8 {ratio} [facility] Serum or plasma alkaline raegan sphatase measurement (enzymatic activity/volume)Ordered By: Joseph Mcbride on 02-18-2022 ALP [Catalytic activity/Vol] 93 U/L 32-92 [facility] Serum or plasma anion gap de terminationOrdered By: Joseph Mcbride 02-18-2022 Anion gap [Moles/Vol] 16.9 mmol/L 6.0-15.0 [facility] Serum or plasma aspartate am inotransferase measurement (enzymatic activity/volume)Ordered By: Joseph Mcbride on 02-18-2022 AST [Catalytic activity/Vol] 12 U/L 10-42 [facility] Serum or plasma calcium annalee urement (mass/volume)Ordered By: Joseph Mcbride on 02-18-2022 Calcium [Mass/Vol] 8.5 mg/dL 8.2-10.2 [facility] Serum or plasma chloride rodo surement (moles/volume)Ordered By: Joseph Mcbride on 02-18-2022 Chloride [Moles/Vol] 89 mmol/L 95-114 [facility] Serum or plasma cholesterol in LDL measurement (mass/volume)Ordered By: Joseph Mcbride on 02-18-2022 Cholesterol in LDL [Mass/Vol] 95 mg/dL 0-100 [facility] Comment on above: LDL ATP III CLASSIFI CATIONLDL less than 100 mg/dL OptimalLDL 100-129 mg/dL Near or above optimalLDL 130-159 mg/dL Borderline highLDL 160-189 mg/dL HighLDL greater than 189 mg/dL Very high Serum or plasma glucose annalee urement (mass/volume)Ordered By: Joseph Mcbride on 02-18-2022 Glucose [Mass/Vol] 82 mg/dL 70-100 [facility] Comment on above: ADA recommended refe rence rangeRandom Glucose Reference Range is dependent on time and content of last meal. Glucose of more than 200 mg/dL in a nonstressed, ambulatory subject supports the diagnosis of Diabetes Mellitus. Serum or plasma high density lipoprotein (HDL) cholesterol measurementOrdered By: Joseph Mcbride on 02-18-2022 Cholesterol in HDL [Mass/Vol] 74 mg/dL 35-85 [facility] Comment on above: HDL CHOL ATP-III CLA SSIFICATION Cardiovascular RiskHDL > or equal to 60 mg/dL LOWHDL < 40 mg/dL HIGH Serum or plasma potassium me asurement (moles/volume)Ordered By: Joseph Mcbride on 02-18-2022 Potassium [Moles/Vol] 3.2 mmol/L 3.5-5.1 [facility] Serum or plasma sodium measu rement (moles/volume)Ordered By: Joseph Mcbride on 02-18-2022 Sodium [Moles/Vol] 130 mmol/L 136-146 [facility] Serum or plasma total biliru bin measurement (mass/volume)Ordered By: Joseph Mcbride on 02-18-2022 Bilirubin [Mass/Vol] 0.9 mg/dL 0.3-1.2 [facility] Serum or plasma total carbon dioxide measurement (moles/volume)Ordered By: Joseph Mcbride on 02-18-2022 CO2 [Moles/Vol] 27.3 mmol/L 22.0-30.0 [facility] Serum or plasma urea nitroge n measurement (mass/volume)Ordered By: Joseph Mcbride on 02-18-2022 Urea nitrogen [Mass/Vol] 33 mg/dL 9-23 [facility] Triglyceride [Mass/volume] i n Serum or PlasmaOrdered By: Joseph Mcbride on 02-18-2022 Triglyceride [Mass/Vol] 65 mg/dL 35-[address] [facility] Comment on above: TRIG ATP III CLASSIF ICATIONTRIG less than 150 mg/dL NormalTRIG 150-199 mg/dL Borderline highTRIG 200-500 mg/dL High TRIG greater than 500 mg/dL Very highStandard traceable to the Center for Disease Conrtrol and Prevention (CDC) test method. Urine protein/creatinine rat ioOrdered By: Joseph Mcbride on 02-18-2022 Protein/Creatinine (U) [Ratio] 165 mg/g{Cre} 0-200 [facility] Hep B Core Abon 04-25-2021 Hep B Core Ab Non-Reactive Normal NR [facility] Comment on above: Performed By: #### A BC HBS, AHBS #### [employer] [address] [place] [address] [phone] Chiropractic Practice Manager: Morris Armstrong MD Hep B Surf Abon 04-25-2021 Hep B Surf Ab <3.50 Normal <10 [facility] Comment on above: Result Comment: REFERENCE RANGE: <10.0 NON-REACTIVE/NOT IMMUNE >=10.0 REACTIVE/IMMUNE Performed By: #### A BC HBS, AHBS #### [employer] [address] [place] [address] [phone] Chiropractic Practice Manager: Morris Armstrong MD Hep B Surf Agon 04-25-2021 Hep B Surf Ag Non-Reactive Normal NR [facility] Comment on above: Performed By: #### A BC HBS, AHBS #### [employer] [address] [place] [address] [phone] Chiropractic Practice Manager: Morris Armstrong MD XR CHEST (2 VW)on 04-25-2021 XR CHEST (2 VW) EXAMINATION: TWO XRAY VIEWS OF THE CHEST 04/25/2021 11:50 am COMPARISON: None. HISTORY: ORDERING SYSTEM PROVIDED HISTORY: Benign hypertension with CKD (chronic kidney disease) stage V (HCC) TECHNOLOGIST PROVIDED HISTORY: Ckd 5 and sob Reason for Exam: Pt has CKD with sob; just beginning dialysis Acuity: Acute Type of Exam: Initial FINDINGS: The lungs are without acute focal process. There is no effusion or pneumothorax. The cardiomediastinal silhouette is without acute process. The osseous structures are without acute process. IMPRESSION: No acute process. Interpreted by: Claribel Nicole MD Signed by: Claribel Nicole MD 04/25/21 Final result Normal [facility] Operative Reporton Operative Report MR#: [id number] S [facility] Pt. Name: Winnie Cai Room #: 0C Discharge Date: Birthdate: 1985 OPERATIVE REPORT DATE OF SURGERY: 04/09/2021 SURGEON: Dina Casey M.D. Preoperative diagnosis: End-stage renal disease, liver transplant recipient Postoperative diagnosis: Same The operation was performed: Laparoscopic peritoneal dialysis catheter insertion Anesthesia: General endotracheal anesthesia Surgeon: Dina Casey M.D. Indication: 35 years old female with end-stage renal disease, will need peritoneal dialysis. She is liver transplant recipient. Laparoscopic peritoneal dialysis catheter insertion was offered to the patient, informed consent was obtained. Surgery: Patient was brought to the operative room placed on the operating table in supine position, general anesthesia was initiated. Patient's abdomen was prepped and draped in usual sterile fashion. Timeout was completed. A 5 mm Optiview trocar was inserted through right paraumbilical abdominal wall under direct visualization. CO2 insufflation was started. Peritoneal cavity was inspected omentum adhesion to upper abdominal wall. A 5 mm Optivew traocer was inserted via right lower quadrant into peritoneal cavity. 12 Citizen Of [place] peritoneal dialysis catheter was obtained. Left paraumbilical five midline incision was made with #15 scalpel. Infraumbilical 5 mm incision was made with #15 scalpel. Peritoneal dialysis catheter was tunneled from infraumbilical incision through the subcutaneous to left paraumbilical incision. Superficial cough is located inside left paraumbilical incision, deep cough is located under infra umbilical incision. A 5 mm plastic tube was inserted with 5 mm trocar to insert a umbilical abdominal wall. Peritoneal dialysis catheter was inserted through the 5 mm plastic tube into peritoneal cavity. The plastic tube was removed. Peritoneal dialysis catheter was further advanced into peritoneal cavity with a laparoscopic grasper. The tip of the catheter was placed into the bottom of the pelvic. CO2 was desufflated, all trochars were removed skin incisions were closed by 4-0 Vicryl subcuticular sutures, Dermabond was applied. 3-0 nylon interrupted suture was used to secure the catheter in the left paraumbilical incision site. 1 L of normal saline was infused through the dialysis catheter into peritoneal cavity then successively drained out. Surgery was completed without complication, I was present for entire operation, patient remained in stable condition, minimal blood loss, without specimen, instrument count and sponge count were correct. Electronically Signed by: Dina Casey M.D. 04/09/2021 05:32 P Dina Casey M.D. Date Dict: 04/09/2021/04:12 P/Dina Casey M.D. Date Trans: 04/09/2021 04:12 P/ [id number] cc: Frank Pantoja M.D. [facility] [address] [place] [address] Normal [facility] PERFUSION BLOOD PANELon 03-26 BASE EXCESS 0.0 mmol/L Normal -2.0-3.0 [facility] Comment on above: Performed By: #### 3 0738 #### [facility] [address] [facility] [place] [address], [facility] Glucose [Mass/Vol] 83 mg/dL Normal 70-105 [facility] Comment on above: Performed By: #### 3 0738 #### [facility] [address] [facility] [place] [address], [facility] Hematocrit (Bld) [Volume fraction] 35 % Low 38-51 [facility] Comment on above: Performed By: #### 3 0738 #### [facility] [address] [facility] [place] [address], [facility] Hemoglobin (Bld) [Mass/Vol] 11.9 g/dL Low 12.0-17.0 [facility] Comment on above: Performed By: #### 3 0738 #### [facility] [address] [place] [address], [facility] IONIZED CALCIUM 1.23 mmol/L Normal 1.12-1.32 [facility] Comment on above: Performed By: #### 3 0738 #### [facility] [address] [facility] [place] [address], [facility] Oxygen (Bld) [Partial pressure] 27.0 mm[Hg] Normal [facility] Comment on above: Performed By: #### 3 0738 #### [facility] [address] [facility] [place] [address], [facility] PCO2 51.2 mmHg High 41.0-51.0 [facility] Comment on above: Performed By: #### 3 0738 #### [facility] [address] [place] [address], [facility] pH (Bld) 7.32 [pH] Normal 7.31-7.41 [facility] Comment on above: Performed By: #### 3 0738 #### [facility] [address] [facility] [place] [address], [facility] Potassium [Moles/Vol] 5.2 mmol/L High 3.5-4.9 [facility] Comment on above: Performed By: #### 3 0738 #### [facility] [address] [place] [address], [facility] Sodium [Moles/Vol] 136 mmol/L Low 138-146 [facility] Comment on above: Performed By: #### 3 0738 #### [facility] [address] [place] [address], [facility] POC URINE PREGNANCYon 2020 Beta HCG ( test) Ql (U) Negative Normal NEGATIVE [facility] Comment on above: Result Comment: Perf ormed in PACU Performed By: #### [id number] #### [facility] [address] US RENAL COMPLETEon 03-05-20 US RENAL COMPLETE EXAMINATION: ULTRASOUND OF THE KIDNEYS 03/05/2021 11:14 am COMPARISON: None. HISTORY: ORDERING SYSTEM PROVIDED HISTORY: Benign hypertension with CKD (chronic kidney disease) stage V (HCC) TECHNOLOGIST PROVIDED HISTORY: Ckd5 Acuity: Acute Type of Exam: Initial FINDINGS: The right kidney measures 11.2 cm in length and the left kidney measures 10.4 cm in length. Kidneys demonstrate increased cortical echogenicity. No hydronephrosis or intrarenal stones. No focal lesions. IMPRESSION: Bilateral increased cortical echogenicity suggesting chronic medical renal disease. Interpreted by: Sahil Cancino MD Signed by: Sahil Cancino MD 03/05/21 Final result Normal [facility] US RENAL COMPLETEOrdered By: Tammi Chilel on 03-05-2021 Bilateral increased cortical echogenicity suggesting chronic medical renal disease. [employer] Phone: EXAMINATION: ULTRASO UND OF THE KIDNEYS 03/05/2021 11:14 am COMPARISON: None. HISTORY: ORDERING SYSTEM PROVIDED HISTORY: Benign hypertension with CKD (chronic kidney disease) stage V (HCC) TECHNOLOGIST PROVIDED HISTORY: Ckd5 Acuity: Acute Type of Exam: Initial FINDINGS: The right kidney measures 11.2 cm in length and the left kidney measures 10.4 cm in length. Kidneys demonstrate increased cortical echogenicity. No hydronephrosis or intrarenal stones. No focal lesions. [employer] Phone: Alver[place], pn Incoming Radiant Results From [employer] - 03/05/2021 11:53 AM EDT EXAMINATION: ULTRASOUND OF THE KIDNEYS 03/05/2021 11:14 am COMPARISON: None. HISTORY: ORDERING SYSTEM PROVIDED HISTORY: Benign hypertension with CKD (chronic kidney disease) stage V (HCC) TECHNOLOGIST PROVIDED HISTORY: Ckd5 Acuity: Acute Type of Exam: Initial FINDINGS: The right kidney measures 11.2 cm in length and the left kidney measures 10.4 cm in length. Kidneys demonstrate increased cortical echogenicity. No hydronephrosis or intrarenal stones. No focal lesions. IMPRESSION: Bilateral increased cortical echogenicity suggesting chronic medical renal disease. [employer] Work Phone: [employer] Work Phone: COVID-19([facility])on 12-01-2019 COVID-19([facility]) NOT DETECTED Normal NOT DETECTED [facility] Comment on above: Performed By: #### C OVID-19([facility]) #### [facility] [address], [place] [id number] COVID-19([facility])on 11-29-2019 Age at specimen collection = Normal [facility] Comment on above: Performed By: #### C OVID-19([facility]) #### [facility] [address], [place] [id number] Vital Signs Date Time Vital Sign Value Performing Clinician Faci lity 09-13-2024 11:08-0400 Body temperature 98.2 [degF] PHYSICIAN NO [facility] 09-13-2024 11:08-0400 Diastolic blood pressure 62 mm[Hg] PHYSICIAN NO [facility] 09-13-2024 11:08-0400 Heart rate 62 /min PHYSICIAN NO [facility] 09-13-2024 11:08-0400 Respiratory rate 16 /min PHYSICIAN NO [facility] 09-13-2024 11:08-0400 SaO2% (BldA) [Mass fraction] 98 % PHYSICIAN NO [facility] 09-13-2024 11:08-0400 Systolic blood pressure 110 mm[Hg] PHYSICIAN NO [facility] 08-23-2024 11:03-0400 Body temperature 97.3 [degF] Frank Pantoja MD Work Phone: [facility] 08-23-2024 11:03-0400 Diastolic blood pressure 78 mm[Hg] Frank Pantoja MD Work Phone: [facility] 08-23-2024 11:03-0400 Heart rate 92 /min Frank Pantoja MD Work Phone: 6(200)922-978621 [place] [address] 08-23-2024 11:03-0400 SaO2% (BldA) [Mass fraction] 97 % Frank Pantoja MD Work Phone: 7(917)416-546721 [place] [address] 08-23-2024 11:03-0400 Systolic blood pressure 128 mm[Hg] Frank Pantoja MD Work Phone: 1(591)934-459821 [place] [address] 08-05-2024 15:12-0400 Diastolic blood pressure 80 mm[Hg] Frank Pantoja MD Work Phone: 4(298)117-712821 [place] [address] 08-05-2024 15:12-0400 Heart rate 100 /min Frank Pantoja MD Work Phone: 6(163)929-508621 [place] [address] 08-05-2024 15:12-0400 Respiratory rate 16 /min Frank Pantoja MD Work Phone: 2(771)237-629121 [place] [address] 08-05-2024 15:12-0400 SaO2% (BldA) [Mass fraction] 96 % Frank Pantoja MD Work Phone: 0(476)302-061621 [place] [address] 08-05-2024 15:12-0400 Systolic blood pressure 136 mm[Hg] Frank Pantoja MD Work Phone: 5(215)610-808921 [place] [address] 08-05-2024 10:32-0400 Body height 162.56 cm Frank Pantoja MD Work Phone: 9(812)219-236621 [place] [address] 08-05-2024 10:32-0400 Body temperature 98.2 [degF] Frank Pantoja MD Work Phone: 5(477)994-459521 [place] [address] 08-05-2024 10:32-0400 Body weight 67 kg Frank Pantoja MD Work Phone: 1(747)853-881921 [place] [address] 07-20-2024 09:56-0500 Body height 162.56 cm Frank Pantoja MD Work Phone: 1(611)133-791021 [place] [address] 07-20-2024 09:56-0500 Body mass index (BMI) [Ratio] 25 kg/m2 Frank Pantoja MD Work Phone: 6(270)587-480721 [place] [address] 07-20-2024 09:56-0500 Body temperature 97.8 [degF] Frank Pantoja MD Work Phone: 7(961)578-604521 [place] [address] 07-20-2024 09:56-0500 Body weight 66 kg Frank Pantoja MD Work Phone: 0(378)771-407521 [place] [address] 07-20-2024 09:56-0500 Diastolic blood pressure 68 mm[Hg] Frank Pantoja MD Work Phone: 5(652)744-548121 [place] [address] 07-20-2024 09:56-0500 Heart rate 75 /min Frank Pantoja MD Work Phone: 4(615)483-550621 [place] [address] 07-20-2024 09:56-0500 SaO2% (BldA) [Mass fraction] 98 % Frank Pantoja MD Work Phone: 0(908)633-719821 [place] [address] 07-20-2024 09:56-0500 Systolic blood pressure 98 mm[Hg] Frank Pantoja MD Work Phone: 8(451)678-151221 [place] [address] 06-15-2024 12:03-0500 Body height 162.56 cm Frank Pantoja MD Work Phone: 3(179)193-717921 [place] [address] 06-15-2024 12:03-0500 Body mass index (BMI) [Ratio] 23.8 kg/m2 Frank Pantoja MD Work Phone: 5(665)387-403821 [place] [address] 06-15-2024 12:03-0500 Body weight 63 kg Frank Pantoja MD Work Phone: 7(794)305-739621 [place] [address] 04-01-2024 13:55-0500 Body height 162.56 cm Frank Pantoja MD Work Phone: 9(980)219-540921 [place] [address] 04-01-2024 13:55-0500 Body mass index (BMI) [Ratio] 24.9 kg/m2 Frank Pantoja MD Work Phone: 2(751)116-477121 [place] [address] 04-01-2024 13:55-0500 Body weight 65.82 kg Frank Pantoja MD Work Phone: [facility] 02-21-2024 13:09-0400 Body temperature 98.2 [degF] [facility] 02-21-2024 13:09-0400 Diastolic blood pressure 84 mm[Hg] [facility] 02-21-2024 13:09-0400 Heart rate 65 /min [facility] 02-21-2024 13:09-0400 Respiratory rate 13 /min [facility] 02-21-2024 13:09-0400 SaO2% (BldA) [Mass fraction] 97 % [facility] 02-21-2024 13:09-0400 Systolic blood pressure 148 mm[Hg] [facility] 02-21-2024 05:20-0400 Body weight 63.9 kg [facility] 02-20-2024 18:15-0400 Inhaled oxygen flow rate 2 L/min [facility] 02-20-2024 12:05-0400 Body height 162.56 cm [facility] 02-04-2024 19:29-0400 Body temperature 97.4 [degF] [facility] 02-04-2024 19:29-0400 Diastolic blood pressure 105 mm[Hg] [facility] 02-04-2024 19:29-0400 Heart rate 70 /min [facility] 02-04-2024 19:29-0400 Respiratory rate 20 /min [facility] 02-04-2024 19:29-0400 SaO2% (BldA) [Mass fraction] 96 % [facility] 02-04-2024 19:29-0400 Systolic blood pressure 158 mm[Hg] [facility] 02-04-2024 18:49-0400 Inhaled oxygen flow rate 10 L/min [facility] 02-04-2024 13:02-0400 Body height 162.56 cm [facility] 02-04-2024 13:02-0400 Body weight 64.1 kg [facility] 01-21-2024 13:48-0400 Diastolic blood pressure 109 mm[Hg] [facility] 01-21-2024 13:48-0400 Heart rate 64 /min [facility] 01-21-2024 13:48-0400 Respiratory rate 16 /min [facility] 01-21-2024 13:48-0400 SaO2% (BldA) [Mass fraction] 96 % [facility] 01-21-2024 13:48-0400 Systolic blood pressure 151 mm[Hg] [facility] 01-21-2024 12:33-0400 Inhaled oxygen flow rate 2 L/min [facility] 01-21-2024 12:20-0400 Body temperature 97.1 [degF] [facility] 01-21-2024 06:17-0400 Body height 162.56 cm [facility] 01-21-2024 06:17-0400 Body weight 63 kg [facility] 12-25-2023 14:41-0400 Body height 162.56 cm [facility] 12-25-2023 14:41-0400 Body mass index (BMI) [Ratio] 23.6 kg/m2 [facility] 12-25-2023 14:41-0400 Body weight 62.59 kg [facility] 12-23-2023 13:38-0400 Body height 162.56 cm [facility] 12-23-2023 13:38-0400 Body mass index (BMI) [Ratio] 23.8 kg/m2 [facility] 12-23-2023 13:38-0400 Body weight 63 kg [facility] 12-12-2023 09:55-0400 Diastolic blood pressure 100 mm[Hg] [facility] 12-12-2023 09:55-0400 Heart rate 55 /min [facility] 12-12-2023 09:55-0400 Respiratory rate 16 /min [facility] 12-12-2023 09:55-0400 SaO2% (BldA) [Mass fraction] 97 % [facility] 12-12-2023 09:55-0400 Systolic blood pressure 159 mm[Hg] [facility] 12-12-2023 09:15-0400 Body height 162.56 cm [facility] 12-12-2023 09:15-0400 Body mass index (BMI) [Ratio] 23.8 kg/m2 [facility] 12-12-2023 09:15-0400 Body weight 63 kg [facility] 12-12-2023 06:35-0400 Body temperature 97.9 [degF] [facility] 12-10-2023 17:50-0400 Body temperature 98 [degF] [facility] 12-10-2023 17:50-0400 Diastolic blood pressure 105 mm[Hg] [facility] 12-10-2023 17:50-0400 Heart rate 74 /min [facility] 12-10-2023 17:50-0400 Respiratory rate 18 /min [facility] 12-10-2023 17:50-0400 Systolic blood pressure 152 mm[Hg] [facility] 12-10-2023 14:10-0400 SaO2% (BldA) [Mass fraction] 94 % [facility] 12-10-2023 10:37-0400 Body height 162.56 cm [facility] 12-10-2023 10:37-0400 Body weight 64 kg [facility] 10-06-2023 14:46-0400 Body height 162.56 cm [facility] 10-06-2023 14:46-0400 Body mass index (BMI) [Ratio] 23 kg/m2 [facility] 10-06-2023 14:46-0400 Body weight 60.78 kg [facility] 09-27-2023 13:10-0400 Body temperature 98.1 [degF] [facility] 09-27-2023 13:10-0400 Diastolic blood pressure 68 mm[Hg] [facility] 09-27-2023 13:10-0400 Heart rate 77 /min [facility] 09-27-2023 13:10-0400 Respiratory rate 18 /min [facility] 09-27-2023 13:10-0400 SaO2% (BldA) [Mass fraction] 99 % [facility] 09-27-2023 13:10-0400 Systolic blood pressure 109 mm[Hg] [facility] 09-27-2023 05:56-0400 Body weight 62.5 kg [facility] 09-26-2023 15:49-0400 Body height 162.56 cm [facility] 09-16-2023 07:04-0400 Body mass index (BMI) [Ratio] 24 kg/m2 [facility] 09-08-2023 19:23-0400 Inhaled oxygen flow rate 6 L/min [facility] 09-08-2023 12:38-0400 Body temperature 97.5 [degF] [facility] 09-08-2023 12:38-0400 Diastolic blood pressure 60 mm[Hg] [facility] 09-08-2023 12:38-0400 Heart rate 106 /min [facility] 09-08-2023 12:38-0400 Respiratory rate 16 /min [facility] 09-08-2023 12:38-0400 SaO2% (BldA) [Mass fraction] 100 % [facility] 09-08-2023 12:38-0400 Systolic blood pressure 123 mm[Hg] [facility] 09-08-2023 11:22-0400 Body height 167.64 cm [facility] 09-08-2023 11:22-0400 Body weight 67.7 kg [facility] 07-16-2022 15:32-0500 Body height 162.6 cm Roberto Pollack MD Work Phone: [place] 07-16-2022 15:32-0500 Body temperature 97.5 [degF] Roberto Pollack MD Work Phone: [place] 07-16-2022 15:32-0500 Body weight 65.95 kg Roberto Pollack MD Work Phone: [place] 07-16-2022 15:32-0500 Diastolic blood pressure 78 mm[Hg] Roberto Pollack MD Work Phone: [place] 07-16-2022 15:32-0500 Heart rate 68 /min Roberto Pollack MD Work Phone: [place] 07-16-2022 15:32-0500 Respiratory rate 18 /min Roberto Pollack MD Work Phone: [place] 07-16-2022 15:32-0500 Systolic blood pressure 117 mm[Hg] Roberto Pollack MD Work Phone: [place] 07-12-2022 12:24-0500 Body temperature 99 [degF] MD Frank Pantoja Work Phone: [facility] 07-12-2022 12:24-0500 Diastolic blood pressure 82 mm[Hg] MD Frank Pantoja Work Phone: [facility] 07-12-2022 12:24-0500 Heart rate 63 /min MD Frank Pantoja Work Phone: [facility] 07-12-2022 12:24-0500 Respiratory rate 18 /min MD Frank Pantoja Work Phone: [facility] 07-12-2022 12:24-0500 SaO2% (BldA) [Mass fraction] 98 % MD Frank Pantoja Work Phone: [facility] 07-12-2022 12:24-0500 Systolic blood pressure 124 mm[Hg] MD Frank Pantoja Work Phone: [facility] 07-12-2022 06:00-0500 Body weight 67.4 kg MD Frank Pantoja Work Phone: [facility] 07-11-2022 15:21-0500 Body height 162.56 cm MD Frank Pantoja Work Phone: [facility] 07-10-2022 23:15-0500 Body temperature 99.1 [degF] MD Frank Pantoja Work Phone: [facility] 07-10-2022 23:15-0500 Diastolic blood pressure 66 mm[Hg] MD Frank Pantoja Work Phone: [facility] 07-10-2022 23:15-0500 Heart rate 67 /min MD Frank Pantoja Work Phone: [facility] 07-10-2022 23:15-0500 Respiratory rate 16 /min MD Frank Pantoja Work Phone: [facility] 07-10-2022 23:15-0500 SaO2% (BldA) [Mass fraction] 97 % MD Frank Pantoja Work Phone: [facility] 07-10-2022 23:15-0500 Systolic blood pressure 154 mm[Hg] MD Frank Pantoja Work Phone: 1(508)692-293321 [place] [address] 07-10-2022 22:21-0500 Body height 162.56 cm MD Frank Pantoja Work Phone: 3(645)829-766121 [place] [address] 07-10-2022 22:21-0500 Body weight 68.1 kg MD Frank Pantoja Work Phone: 7(547)142-490821 [place] [address] 07-10-2022 21:32-0500 Body temperature 98.6 [degF] MD Frank Pantoja Work Phone: 4(305)927-476021 [place] [address] 07-10-2022 21:32-0500 Diastolic blood pressure 100 mm[Hg] MD Frank Pantoja Work Phone: 2(386)221-456621 [place] [address] 07-10-2022 21:32-0500 Heart rate 69 /min MD Frank Pantoja Work Phone: [facility] 07-10-2022 21:32-0500 Respiratory rate 16 /min MD Frank Pantoja Work Phone: [facility] 07-10-2022 21:32-0500 SaO2% (BldA) [Mass fraction] 95 % MD Frank Pantoja Work Phone: [facility] 07-10-2022 21:32-0500 Systolic blood pressure 144 mm[Hg] MD Frank Pantoja Work Phone: 4(906)587-196821 [place] [address] 07-10-2022 14:57-0500 Body height 162.56 cm MD Frank Pantoja Work Phone: 4(149)877-669921 [place] [address] 07-10-2022 14:57-0500 Body weight 66 kg MD Frank Pantoja Work Phone: [facility] 07-08-2022 14:22-0500 Body mass index (BMI) [Ratio] 24.89 kg/m2 [facility] [address] [place] [address] 07-08-2022 14:22-0500 Body temperature 98.6 [degF] [facility] [address] [place] [address] 07-08-2022 14:22-0500 Body weight 65.77 kg [facility] [address] [place] [address] 07-08-2022 14:22-0500 Diastolic blood pressure 73 mm[Hg] [facility] [address] [place] [address] 07-08-2022 14:22-0500 Heart rate 74 /min [facility] [address] [place] [address] 07-08-2022 14:22-0500 Systolic blood pressure 115 mm[Hg] [facility] [address] [place] [address] Encounters Encounter Date Encounter Type Care Provider Facility Start: 02-15-2025 End: 02-15-2025 ambulatory None Provider Facility:[facility] Start: 09-13-2024 End: 09-13-[address] [facility] Work Phone: Start: 09-13-2024 End: 09-13-2024 Patient encounter procedure PHYSICIAN NO [facility] Phys[facility] Work Phone: Start: 09-13-2024 End: 09-13-2024 ambulatory Essam Elashi Facility:[facility] Start: 09-13-2024 End: 09-13-2024 Departed Referred PHYSICIAN NO [facility] [place] Work Phone: Start: 09-07-2024 End: 09-07-2024 Patient encounter procedure Frank Pantoja MD Work Phone: [facility] Physician [facility] Work Phone: Start: 09-07-2024 End: 09-07-2024 ambulatory Frank Pantoja MD Work Phone: [facility] Work Phone: Start: 08-23-2024 End: 08-23-2024 ambulatory Frank Pantoja MD Work Phone: [facility] Work Phone: Start: 08-23-2024 End: 08-23-2024 Patient encounter procedure Frank Pantoja MD Work Phone: [facility] V[facility] S[facility] Work Phone: Start: 08-05-2024 Non-patient / Non-visit Frank Pantoja MD Work Phone: [facility] Physician [facility] Work Phone: Start: 08-05-2024 End: 08-05-2024 Admission to same day surgery center Frank Pantoja MD Work Phone: [facility] [place] Start: 08-05-2024 End: 08-05-2024 ambulatory Frank Pantoja MD Work Phone: [facility] Work Phone: Start: 07-20-2024 End: 07-20-2024 ambulatory Frank Pantoja MD Work Phone: [facility] Work Phone: Start: 07-20-2024 End: 07-20-2024 Patient encounter procedure Frank Pantoja MD Work Phone: [facility] Physician [facility] Vascular S[facility] Work Phone: Start: 07-19-2024 Non-patient / Non-visit Frank Pantoja MD Work Phone: [facility] Work Phone: Start: 07-01-2024 End: 07-01-2024 Patient encounter procedure Frank Pantoja MD Work Phone: [facility] [place] Work Phone: Start: 07-01-2024 End: 07-01-2024 ambulatory Frank Pantoja MD Work Phone: [facility] Work Phone: Start: 2024 Non-patient / Non-visit Frank Pantoja MD Work Phone: [facility]-[employer] Work Phone: Start: 06-15-2024 End: 06-15-2024 Patient encounter procedure Frank Pantoja MD Work Phone: [facility] Physician [facility] Orthoped[facility] Work Phone: Start: 06-15-2024 End: 06-15-2024 ambulatory Frank Pantoja MD Work Phone: [facility] Work Phone: Start: 05-18-2024 Non-patient / Non-visit Frank Pantoja MD Work Phone: [facility] Physician [facility] Work Phone: Start: 05-11-2024 ambulatory None Provider Facility: [facility] Start: 04-21-2024 Non-patient / Non-visit Frank Pantoja MD Work Phone: [facility] Physician [facility] Work Phone: Start: 04-05-2024 End: 04-05-2024 ambulatory Frank Pantoja MD Work Phone: [facility] Work Phone: Start: 04-05-2024 End: 04-05-2024 Patient encounter procedure Frank Pantoja MD Work Phone: [facility] Physician [facility] [place] [facility] Work Phone: Start: 04-01-2024 End: 04-01-2024 Patient encounter procedure Frank Pantoja MD Work Phone: [facility] Physician [facility] Work Phone: Start: 03-22-2024 Non-patient / Non-visit Frank Pantoja MD Work Phone: [facility] Work Phone: Start: 03-08-2024 End: 03-08-2024 ambulatory NON STAFF [facility] Work Phone: Start: 03-08-2024 End: 03-08-2024 Patient encounter procedure [facility] Work Phone: Start: 02-24-2024 End: 02-24-2024 ambulatory NON STAFF [facility] Work Phone: Start: 02-24-2024 End: 02-24-2024 Patient encounter procedure [facility] Work Phone: Start: 02-24-2024 End: 02-24-2024 Patient encounter procedure [facility] [place] [facility] Start: 02-24-2024 End: 02-24-2024 ambulatory NON STAFF [facility] Work Phone: Start: 02-20-2024 Non-patient / Non-visit [facility] Work Phone: Start: 02-20-2024 End: 02-21-2024 Evaluation and management of inpatient [facility] [place] [facility] Work Phone: Start: 02-19-2024 End: 02-19-2024 ambulatory Chuy Mojica DO Facility:[facility] Start: 02-17-2024 End: 02-17-2024 Patient encounter procedure [facility]-CT [address] Work Phone: Start: 02-17-2024 End: 02-17-2024 ambulatory NON STAFF [facility] Work Phone: Start: 02-17-2024 Non-patient / Non-visit [facility] Work Phone: Start: 02-16-2024 End: 02-16-2024 ambulatory NON STAFF [facility] Work Phone: Start: 02-16-2024 End: 02-16-2024 Patient encounter procedure [facility] Work Phone: Start: 02-04-2024 Non-patient / Non-visit [facility] Work Phone: Start: 02-04-2024 End: 02-04-2024 Evaluation and management of inpatient [facility]-[address] [place] [address] Surgical Work Phone: Start: 02-02-2024 End: 02-02-2024 Patient encounter procedure [facility] Work Phone: Start: 02-02-2024 End: 02-02-2024 ambulatory NON STAFF [facility] Work Phone: Start: 01-21-2024 Non-patient / Non-visit [facility] Work Phone: Start: 01-21-2024 End: 01-21-2024 Admission to same day surgery center [facility] [place] Start: 01-21-2024 End: 01-21-2024 ambulatory NON STAFF [facility] Work Phone: Start: 01-20-2024 Non-patient / Non-visit [facility] Work Phone: Start: 01-06-2024 End: 01-06-2024 Patient encounter procedure [facility] Work Phone: Start: 01-06-2024 End: 01-06-2024 ambulatory NON STAFF [facility] Work Phone: Start: 12-25-2023 End: 12-25-2023 ambulatory NON STAFF [facility] Work Phone: Start: 12-25-2023 End: 12-25-2023 Patient encounter procedure [facility] Work Phone: Start: 12-23-2023 End: 12-23-2023 ambulatory NON STAFF [facility] Work Phone: Start: 12-23-2023 End: 12-23-2023 Patient encounter procedure [facility] G[facility] Work Phone: Start: 12-22-2023 Non-patient / Non-visit [facility] Work Phone: Start: 12-17-2023 Non-patient / Non-visit [facility] Work Phone: Start: 12-12-2023 Non-patient / Non-visit [facility] Work Phone: Start: 12-12-2023 End: 12-12-2023 Admission to same day surgery center [facility] [place] Start: 12-12-2023 End: 12-12-2023 ambulatory NON STAFF [facility] Work Phone: Start: 12-10-2023 End: 12-10-2023 Emergency department patient visit [facility]-Emergency Room Work Phone: Start: 11-17-2023 Non-patient / Non-visit [facility] Work Phone: Start: 11-10-2023 End: 11-10-2023 Patient encounter procedure [facility]-CT Scan [facility] [place] Work Phone: Start: 11-10-2023 End: 11-10-2023 ambulatory NON STAFF [facility] Work Phone: Start: 10-06-2023 End: 10-06-2023 ambulatory NON STAFF [facility] Work Phone: Start: 10-06-2023 End: 10-06-2023 Patient encounter procedure [facility] Work Phone: Start: 10-06-2023 End: 10-06-2023 Patient encounter procedure [facility] Start: 10-06-2023 End: 10-06-2023 ambulatory NON STAFF [facility] Work Phone: Start: 09-22-2023 End: 09-27-2023 Non-patient / Non-visit [facility] [facility] Work Phone: Start: 09-22-2023 End: 09-27-2023 Non-patient / Non-visit [facility] Nephrology Work Phone: Start: 09-17-2023 End: 09-27-2023 Non-patient / Non-visit [facility] Rehab and Spine Work Phone: Start: 09-15-2023 End: 09-27-2023 Non-patient / Non-visit [facility] Neph[facility] Work Phone: Start: 09-12-2023 End: 09-27-2023 Non-patient / Non-visit [facility] [place] [facility] Work Phone: Start: 09-11-2023 End: 09-27-2023 Non-patient / Non-visit [facility] Vascular Surgery Work Phone: Start: 09-09-2023 End: 09-27-2023 Non-patient / Non-visit [facility] Pulmonary Disease Work Phone: Start: 09-08-2023 Evaluation and management of inpatient [facility] Facility:[facility] Start: 09-08-2023 End: 09-27-2023 Non-patient / Non-visit [facility] Neph[facility] Work Phone: Start: 09-08-2023 End: 09-27-2023 Evaluation and management of inpatient [facility] [place] [facility] Work Phone: Start: 08-19-2023 Non-patient / Non-visit [facility] D[facility] Work Phone: Start: 07-24-2023 Non-patient / Non-visit [facility] Work Phone: Start: 10-30-2022 Telephone encounter Mikel Golden Hematology/Oncology Comment on above: Results Start: 10-23-2022 End: 10-23-2022 ambulatory FRANK PANTOJA Facility:[facility] Start: 10-08-2022 End: 10-08-2022 ambulatory FRANK PANTOJA Facility:[facility] Start: 08-13-2022 End: 08-13-2022 ambulatory FRANK PANTOJA Facility:[facility] Start: 08-05-2022 Refill Pippa Flores RN Hemato logy/Oncology Comment on above: Refill Request; Refi ll Request Start: 07-16-2022 End: 07-16-2022 ambulatory Roberto Pollack MD Work Phone: Hematology/Oncology Comment on above: 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, on chronic dialysis (HCC) (Primary Dx); Stage 5 chronic kidney disease on chronic dialysis (HCC); Alcoholic cirrhosis of liver without ascites (HCC); Iron overload Start: 07-16-2022 End: 07-16-2022 Patient encounter procedure Roberto Pollack MD Work Phone: [facility] Start: 07-10-2022 End: 07-12-2022 Evaluation and management of inpatient MD Frank Pantoja Work Phone: [facility] [place] [facility] Work Phone: Start: 07-10-2022 End: 07-10-2022 ambulatory MD Frank Pantoja Work Phone: [facility] Work Phone: Start: 07-10-2022 End: 07-10-2022 Patient encounter procedure MD Frank Pantoja Work Phone: [facility] [place] Work Phone: Start: 07-08-2022 ambulatory SELF SELF Facility:[facility] Start: 07-08-2022 End: 07-08-2022 Office outpatient visit 40 minutes Cody Angel MD Work Phone: [facility] Comment on above: Liver replaced by tr ansplant (Primary Dx); Abnormal blood chemistry; Aftercare following organ transplant; Immunosuppressed status; High risk medication use; Liver transplant status Start: 03-28-2022 End: 03-28-2022 ambulatory MD Frank Pantoja Work Phone: [facility] Work Phone: Start: 03-28-2022 End: 03-28-2022 Patient encounter procedure MD Frank Pantoja Work Phone: [facility] [place] Start: 02-18-2022 End: 02-18-2022 Patient encounter procedure MD Frank Pantoja Work Phone: [facility] [place] Start: 01-08-2022 End: 01-08-2022 Patient encounter procedure MD Frank Pantoja Work Phone: [facility] [address] Start: 04-25-2021 End: 04-28-2021 ambulatory [facility] Start: 04-09-2021 End: 04-10-2021 ambulatory FRANK PANTOJA Facility:[facility] Start: 03-05-2021 End: 03-08-2021 ambulatory [facility] Start: 03-05-2021 End: 03-07-2021 Subsequent hospital visit by physician [facility] Ultrasound [address] Ultrasound Comment on above: Benign hypertension with CKD (chronic kidney disease) stage V (HCC); CKD (chronic kidney disease) stage 5, GFR less than 15 ml/min (HCC); Proteinuria, unspecified type Start: 02-16-2021 Patient encounter status [address] Work Phone: Start: 12-12-2014 End: 12-21-2014 Patient encounter status [facility] Hepatology 5 [facility] Work Phone: Procedures Date Procedure Procedure Detail Performing Clinician Start: 09-07-2024 Plain X-ray of right shoulder Frank jo MD Work Phone: Start: 08-05-2024 Arteriovenous fistulization Frank marcus MD Work Phone: Start: 07-01-2024 US angiography Frank Pantoja MD Work Phone: Start: 06-15-2024 Plain X-ray of right shoulder Frank jo MD Work Phone: Start: 04-05-2024 Plain X-ray of right shoulder Frank jo MD Work Phone: Start: 03-08-2024 Plain X-ray of right shoulder Start: 02-24-2024 Plain X-ray of right shoulder Start: 02-20-2024 End: 02-20-2024 Plain X-ray of right shoulder Start: 02-20-2024 Aerobic microbial culture Frank Pantoja MD Work Phone: Start: 02-20-2024 Anaerobic microbial culture Frank marcus MD Work Phone: Start: 02-20-2024 Gram stain microscopy Frank Pantoja MD Work Phone: Start: 02-20-2024 Investigation of transfusion reaction Start: 02-20-2024 OR Total Shoulder Reverse & Anatomic (Right) Start: 02-20-2024 Plain X-ray of left shoulder Start: 02-17-2024 CT of right shoulder Start: 02-16-2024 Plain X-ray of right shoulder Start: 02-04-2024 Plain X-ray of right humerus Start: 02-04-2024 Antibody screen Chuy Mojica Comment on above: Order Comment: Labels sent to surg prep @ 1120. Patient to arrive at 1230. [facility] Comment on hold for OR 02/03 Transfuse now? N Result Comment: PERF ORMED BY:[id number] [place], [place] [id number] MEDICAL DIRECTORESTRADA GUZMAN M.D. Start: 02-04-2024 OR Total Shoulder Reverse & Anatomic (Right) Start: 02-04-2024 Plain X-ray of left shoulder Start: 02-02-2024 Plain X-ray of right shoulder Start: 01-21-2024 Plain X-ray of left shoulder Start: 01-21-2024 Plain X-ray of right shoulder Start: 01-21-2024 Antibody screen Chuy Mojica Comment on above: Order Comment: Transfuse now? N Result Comment: PERF ORMED BY:[id number] [place] [id number] MEDICAL DIRECTORESTRADA GUZMAN M.D. Start: 01-21-2024 OR Total Shoulder Reverse & Anatomic (Right) Start: 12-25-2023 Plain X-ray of right shoulder Start: 12-12-2023 Plain chest X-ray Start: 12-12-2023 Fluoroscopic guidance Start: 12-10-2023 Plain chest X-ray Start: 11-10-2023 CT of right shoulder Start: 10-06-2023 Plain X-ray of right shoulder Start: 09-16-2023 Antibody screen Larry sheehan Comment on above: Order Comment: Comment two units on hold for OR Transfuse now? N Transfuse now? Y Number of units to transfuse now? 1 Result Comment: PERF ORMED BY: [facility] [address] [place] [address] PATHOLOGIST QI SPECIALIST ESTRADA GUZMAN M.D. Start: 09-16-2023 MRI of head Start: 09-16-2023 Fluoroscopic guidance Start: 09-16-2023 Plain chest X-ray Start: 09-12-2023 Pulse volume recorder pneumoplethysmography Start: 09-12-2023 Plain X-ray of right shoulder Start: 09-10-2023 Lactoferrin measurement Start: 09-09-2023 Diagnostic radiography of abdomen Start: 09-08-2023 Trunk excision Start: 09-08-2023 Bacterial culture and sensitivity Start: 09-08-2023 Blood culture for bacteria, including anaerobic screen Start: 09-08-2023 CT of abdomen and pelvis without contrast Start: 09-08-2023 CT of head without contrast Start: 09-08-2023 Plain chest X-ray Start: 07-12-2022 Esophagogastroduodenoscopy MD Frank jo Work Phone: Start: 07-10-2022 Screening for occult blood in feces MD Frank Pantoja Work Phone: Start: 07-08-2022 Bilirubin direct Cody Angel MD Work Phone: Start: 07-08-2022 Lipid panel Cody Angel MD Work Phone: Start: 01-08-2022 CT of abdomen and pelvis without contrast MD Frank Pantoja Work Phone: Start: 04-09-2021 Anesthesia intraperitoneal lower abd w/laps khalida PANTOJA Start: 04-09-2021 LAP INSERT TUNNEL IP CATH DINA CASEY Start: 03-05-2021 Us retroperitoneal real time w/image complete Philipfemi Olga Chilel MD Work Phone: Start: 10-09-2016 Microscopic observation [Identifier] in Cervix by Cyto stain [facility] [address] Start: 12-22-2014 H/O splenectomy H/O splenectomy [facility] 105 Start: 12-21-2014 H/O: liver recipient H/O liver transplant [facility] 105 H/O: liver recipient History of liver transplant MD Frank Pantoja Work Phone: Comment on above: Problem List clean-up per request of Shaji THOMPSON Cmte H/O: liver recipient Liver repla alberto by transplant Cody Angel MD Work Phone: H/O: liver recipient Liver trans plant recipient MD Frank Pantoja Work Phone: Comment on above: Problem List clean-up per request of Shaji THOMPSON Cmte H/O: liver recipient Liver trans plant status Plan of Treatment Date Care Activity Detail Author Start: 04-02-2027 DTaP/Tdap/Td vaccine (2 - Td or Tdap) DTaP/Tdap/Td vaccine (2 - Td or Tdap) [facility] Work Phone: Start: 04-02-2027 Tetanus vaccination TETANUS [facility] Start: 04-02-2027 Urine microalbumin profile DTAP,TDAP,TD (2 - Td or Tdap) [place] Start: 09-13-2024 [facility] Start: 09-07-2024 Plain X-ray of right shoulder XR shoulder RT min 2V* [facility] Start: 09-07-2024 XR Shoulder - right Views [facility] Start: 08-05-2024 [facility] Start: 06-15-2024 Plain X-ray of right shoulder XR shoulder RT min 2V* [facility] Start: 06-15-2024 XR Shoulder - right Views [facility] Start: 04-05-2024 Plain X-ray of right shoulder XR shoulder RT min 2V* [facility] Start: 04-05-2024 XR Shoulder - right Views [facility] Start: 03-08-2024 Plain X-ray of right shoulder XR shoulder RT min 2V* [facility] Start: 03-08-2024 XR Shoulder - right Views [facility] Start: 02-24-2024 Plain X-ray of right shoulder XR shoulder RT min 2V* [facility] Start: 02-24-2024 XR Shoulder - right Views [facility] Start: 02-21-2024 Hospital admission [facility] Start: 02-20-2024 [facility] Start: 02-20-2024 Microbial culture, body fluid [facility] Start: 02-20-2024 End: 02-20-2024 [facility] Start: 02-20-2024 Removal of Synthetic Substitute from Right Shoulder Joint, Open Approach Removal of Synthetic Substitute from Right Shoulder Joint, Open Approach [facility] Start: 02-16-2024 Plain X-ray of right shoulder XR shoulder RT min 2V* [facility] Start: 02-16-2024 XR Shoulder - right Views [facility] Start: 02-04-2024 [facility] Start: 02-04-2024 Removal of Internal Fixation Device from Right Shoulder Joint, Open Approach Removal of Internal Fixation Device from Right Shoulder Joint, Open Approach [facility] Start: 02-04-2024 Replacement of Right Shoulder Joint with Reverse Ball and Socket Synthetic Substitute, Open Approach Replacement of Right Shoulder Joint with Reverse Ball and Socket Synthetic Substitute, Open Approach [facility] Start: 02-04-2024 [facility] Start: 02-04-2024 Hospital admission [facility] Start: 02-04-2024 Referral to occupational therapist [facility] Start: 02-02-2024 Plain X-ray of right shoulder XR shoulder RT min 2V* [facility] Start: 02-02-2024 XR Shoulder - right Views [facility] Start: 01-21-2024 [facility] Start: 01-21-2024 Plain X-ray of right shoulder XR shoulder RT 1V [facility] Start: 01-21-2024 XR Shoulder - right Single view [facility] Start: 01-21-2024 End: 01-21-2024 [facility] Start: 01-21-2024 [facility] Start: 12-25-2023 Plain X-ray of right shoulder XR shoulder RT min 2V* [facility] Start: 12-25-2023 XR Shoulder - right Views [facility] Start: 12-23-2023 Patient referral [facility] Work Phone: Start: 12-12-2023 [facility] Start: 12-12-2023 [facility] Start: 10-06-2023 Plain X-ray of right shoulder XR shoulder RT min 2V* [facility] Start: 10-06-2023 XR Shoulder - right Views [facility] Start: 09-27-2023 [facility] Start: 09-16-2023 Referral to rehabilitation physician [facility] Start: 09-12-2023 Consultation [facility] Start: 09-11-2023 Administration of prophylactic treatment [facility] Start: 09-11-2023 Referral to vascular surgeon [facility] Start: 09-10-2023 Referral to neurologist [facility] Start: 09-09-2023 Consultation [facility] Start: 09-08-2023 Referral to pie chef [facility] Start: 09-08-2023 Consultation [facility] Start: 09-08-2023 Hospital admission [facility] Start: 09-08-2023 Referral to stitcher feeder [facility] Start: 09-08-2023 Bacteria identified in Blood by Culture [facility] Start: 09-08-2023 Insertion of Infusion Device into Lower Vein, Percutaneous Approach Insertion of Infusion Device into Lower Vein, Percutaneous Approach [facility] Start: 09-08-2023 Insertion of Infusion Device into Superior Vena Cava, Percutaneous Approach Insertion of Infusion Device into Superior Vena Cava, Percutaneous Approach [facility] Start: 09-08-2023 Insertion of Tunneled Vascular Access Device into Chest Subcutaneous Tissue and Fascia, Percutaneous Approach Insertion of Tunneled Vascular Access Device into Chest Subcutaneous Tissue and Fascia, Percutaneous Approach [facility] Start: 09-08-2023 Performance of Urinary Filtration, Intermittent, Less than 6 Hours Per Day Performance of Urinary Filtration, Intermittent, Less than 6 Hours Per Day [facility] Start: 09-08-2023 Removal of Infusion Device from Peritoneal Cavity, Open Approach Removal of Infusion Device from Peritoneal Cavity, Open Approach [facility] Start: 09-08-2023 [facility] Start: 07-08-2023 Potassium [Moles/volume] in Serum or Plasma POTASSIUM [facility] Start: 01-24-2023 Influenza vaccination INFLUENZA (Season Ended) [place] Start: 01-06-2023 End: 01-06-2023 Patient encounter procedure 01/06/2023 Office Visit Transplant [facility] Start: 07-12-2022 [facility] Start: 07-11-2022 Referral to insurance claims assistant [facility] Start: 07-11-2022 Comprehensive metabolic 2000 panel - Serum or Plasma [facility] Start: 07-11-2022 [facility] Start: 07-10-2022 Hospital admission [facility] Start: 07-10-2022 Referral to pie chef [facility] Start: 07-10-2022 Referral to stitcher feeder [facility] Start: 07-10-2022 End: 07-10-2022 [facility] Start: 07-10-2022 End: 07-10-2022 [facility] Start: 07-10-2022 Bacteria identified in Urine by Culture [facility] Start: 07-10-2022 Urine culture Urine Culture [facility] Start: 07-08-2022 End: 07-08-[address] ABDOMEN WITH CONTRAST Imaging Routine Liver transplant status Expected: 07/08/2022, Expires: 07/08/2023 [facility] Comment on above: Expected: 07/08/2022, Expires: Start: 05-26-2022 DEPRESSION ASSESSMENT DEPRESSION ASSESSMENT [place] Start: 04-02-2022 PNEUMOCOCCAL (3 - PPSV23 if available, else PCV20) PNEUMOCOCCAL (3 - PPSV23 if available, else PCV20) [place] Start: 04-02-2022 Pneumococcal 0-64 years Vaccine (3 of 4 - PPSV23) Pneumococcal 0-64 years Vaccine (3 of 4 - PPSV23) [facility] Phone: Start: 04-02-2022 PNEUMOCOCCAL VACCINE SERIES (3 - PPSV23 if available, else PCV20) PNEUMOCOCCAL VACCINE SERIES (3 - PPSV23 if available, else PCV20) [facility] Start: 02-28-2022 Creatinine measurement Creatinine monitoring [facility] Phone: Start: 02-28-2022 Potassium monitoring Potassium monitoring [facility] Phone: Start: 01-24-2022 Influenza vaccination [facility] Start: 06-11-2021 End: 06-11-2021 Patient encounter procedure 06/11/2021 Office Visit Family Medicine Frank Pantoja MD [address] [facility] [place] [address] [phone] [facility] Start: 04-04-2021 End: 04-04-2021 Patient encounter procedure 04/04/2021 Office Visit Nephrology Tammi Chilel MD [address] [facility] [address] [place] [address] [phone] Renal Services [facility] Start: 10-18-2020 COVID-19 Vaccine (3 - Pfizer risk 3-dose series) COVID-19 Vaccine (3 - Pfizer risk 3-dose series) [facility] Phone: Start: 10-18-2020 COVID-19 VACCINE (3 - Pfizer risk series) COVID-19 VACCINE (3 - Pfizer risk series) [facility] Start: 10-10-2019 Screening for malignant neoplasm of cervix [facility] Phone: Start: 09-25-2016 Thyroid stimulating hormone measurement TSH testing [facility] Phone: Start: 02-22-2015 Meningococcal (ACWY) vaccine (2 - Risk 2-dose series) Meningococcal (ACWY) vaccine (2 - Risk 2-dose series) [facility] Phone: Start: 02-22-2015 MENINGOCOCCAL CONJUGATE (2 - Risk 2-dose series) MENINGOCOCCAL CONJUGATE (2 - Risk 2-dose series) [place] Start: 2013 HPV TESTING HPV TESTING [place] Start: 2013 Screening for malignant neoplasm of cervix HPV (without or with Pap) [facility] Phone: Start: 2004 PAP TESTING PAP TESTING [place] Start: 2004 Screening for malignant neoplasm of cervix CERVICAL CANCER SCREENING DISCUSSION [facility] Start: 2002 SHINGRIX VACCINE (1 of 2) SHINGRIX VACCINE (1 of 2) [place] Start: 2002 Zoster vaccine hzv live for subcutaneous use ZOSTER (SHINGLES) VACCINE (1 of 2) [facility] Start: 2001 HEPATITIS C SCREENING HEPATITIS C SCREENING [place] Start: 2001 HIV SCREENING HIV SCREENING [place] Start: 1993 Meningococcal B vaccine (1 of 4 - Increased Risk Bexsero 2-dose series) Meningococcal B vaccine (1 of 4 - Increased Risk Bexsero 2-dose series) [facility] Phone: Start: 1993 MENINGOCOCCAL B: Consider based on risk (1 of 4 - Increased Risk Bexsero 2-dose series) MENINGOCOCCAL B: Consider based on risk (1 of 4 - Increased Risk Bexsero 2-dose series) [place] Start: 1984 HEPATITIS A (1 of 2 - Risk 2-dose series) HEPATITIS A (1 of 2 - Risk 2-dose series) [place] Start: 1984 Varicella vaccine (1 of 2 - 2-dose childhood series) Varicella vaccine (1 of 2 - 2-dose childhood series) [facility] Phone: Start: 1983 HEPATITIS B (1 of 3 - 3-dose series) HEPATITIS B (1 of 3 - 3-dose series) [place] Start: 1983 Thyroid stimulating hormone measurement TSH [facility] Alanine aminotransfe rase [Enzymatic activity/volume] in Serum or Plasma by No addition of P-5'-P [facility] Albumin [Mass/volume ] in Serum or Plasma [facility] Albumin/Globulin ratio [facility] Alkaline phosphatase [Enzymatic activity/volume] in Serum or Plasma [facility] Anion gap measurement [facility] Aspartate aminotrans ferase [Enzymatic activity/volume] in Serum or Plasma [facility] Basophils [#/volume] in Blood by Automated count [facility] Basophils/100 leukoc ytes in Blood by Automated count [facility] Bilirubin.total [Mass/volume] in Serum or Plasma [facility] Calcium [Mass/volume ] in Serum or Plasma [facility] Carbon dioxide, tota l [Moles/volume] in Serum or Plasma [facility] Chloride [Moles/volu me] in Serum or Plasma [facility] Creatinine and Glome rular filtration rate.predicted panel - Serum, Plasma or Blood [facility] CT of right shoulder with contrast [facility] CT Shoulder - right WO contrast [facility] DXA Skeletal system. axial Views for bone density [facility] Eosinophils [#/volum e] in Blood [facility] Eosinophils/100 leuk ocytes in Blood by Automated count [facility] Erythrocyte distribu tion width [Ratio] by Automated count [facility] Erythrocytes [#/volu me] in Blood [facility] Globulin [Mass/volum e] in Serum [facility] Glucose [Mass/volume ] in Serum or Plasma [facility] Hematocrit [Volume Fraction] of Blood [facility] Hemoglobin [Mass/vol ume] in Blood [facility] Hepatic function panel [facility] Leukocytes [#/volume ] corrected for nucleated erythrocytes in Blood by Automated coun [facility] Leukocytes [#/volume ] in Blood [facility] Lymphocytes [#/volum e] in Blood by Automated count [facility] Lymphocytes/100 leuk ocytes in Blood by Automated count [facility] MCH [Entitic mass] b y Automated count [facility] MCHC [Mass/volume] b y Automated count [facility] MCV [Entitic volume] by Automated count [facility] Measurement of renal function [facility] Monocytes [#/volume] in Blood by Automated count [facility] Monocytes/100 leukoc ytes in Blood by Automated count [facility] Neutrophils [#/volum e] in Blood by Automated count [facility] Neutrophils/100 leuk ocytes in Blood by Automated count [facility] Nucleated erythrocyt es [Presence] in Blood by Automated count [facility] Patient Education [facility] Work Phone: Patient referral [facility] Work Phone: Phosphatidylethanol [Mass/volume] in Blood [facility] Platelet mean volume [Entitic volume] in Blood by Automated count [facility] Platelets [#/volume] in Blood [facility] Potassium [Moles/vol ume] in Serum or Plasma [facility] Protein [Mass/volume ] in Serum or Plasma [facility] Sodium [Moles/volume ] in Serum or Plasma [facility] Urea nitrogen [Mass/ volume] in Serum or Plasma [facility] Immunizations Immunization Date Immunization Notes Care Provider Fa [facility] 03-03-2021 influenza, injectabl e, quadrivalent, preservative free Roberto Pollack MD Work Phone: [place] 03-03-2021 influenza virus vacc ine, unspecified formulation [facility] Hepatology 5 [facility] 09-20-2020 COVID-19 mRNA, Deidra grande (Payoff) MD Frank Pantoja Work Phone: [facility] 08-31-2020 COVID-19 Deidra Joyner (Pfizer) MD Frank Pantoja Work Phone: [facility] 03-21-2020 Seasonal, quadrivale nt, recombinant, injectable influenza vaccine, preservative free Roberto Pollack MD Work Phone: [place] 04-09-2018 influenza virus vacc ine, unspecified formulation [address] Work Phone: 04-09-2018 influenza virus vacc ine, whole virus [facility] [address] [place] [address] Work Phone: 04-09-2018 influenza, injectabl e, quadrivalent, preservative free Roberto Pollack MD Work Phone: [place] 04-02-2017 influenza, injectabl e, quadrivalent, preservative free [address] 04-02-2017 pneumococcal polysaccharide vaccine, [address] 04-02-2017 tetanus toxoid, redu alberto diphtheria toxoid, and acellular pertussis vaccine, adsorbed [address] 12-28-2014 haemophilus influenz ae type b vaccine, conjugate unspecified formulation [facility] [address] [place] [address] 12-28-2014 Hib, unspecified [address] Work Phone: 12-28-2014 meningococcal oligosaccharide (groups A, C, Y and W-135) diphtheria toxoid conjugate vaccine (MCV4O) [address] Work Phone: 12-28-2014 meningococcal polysaccharide (groups A, C, Y and W-135) diphtheria toxoid conjugate vaccine (MCV4P) Roberto Pollack MD Work Phone: [place] 12-28-2014 Meningococcal Vaccin e IM (Conjugate) [facility] [address] [place] [address] 12-28-2014 pneumococcal conjuga te vaccine, [address] 12-28-2014 meningococcal vaccin e of unknown formulation and unknown serogroups [place] [address] [facility] Work Phone: 05-12-2014 influenza, seasonal, injectable Roberto Pollack MD Work Phone: [place] 09-25-1995 measles, mumps and rubella virus vaccine Roberto Pollack MD Work Phone: [place] Payers Date Payer Category Payer Private Health Insurance [id number] 2023 Self-pay [id number] 2023 Medicare [id number] 2021 Medicaid [id number]. [id number] 2018 Medicaid [id number]. [id number] 2017 Medicare [id number] 2017 Medicare [id number]. 1.13.172.2. [id number] 1983 Unknown [id number] 2..840.1.873584.3.579.2. 647 1983 Unknown [id number] 2.840.1.162739.3.579.2. 176 1983 Unknown [id number] 2.16840.1.661873.3.579.2. 176 1983 Unknown [id number] 2.16840.1.184889.3.579.2. 176 1983 Unknown [id number] 2.16.840.1.526292.3.579.2. 176 1983 Unknown [id number] 2.16840.1.027433.3.579.2. 594 1985 Unknown [id number] 2.16.840.1.898668.3.579.2. 718 1985 Unknown [id number] 2.16.840.1.365489.3.579.2. 718 1983 Unknown [id number] 2.16.840.1.416227.3.579.2. 718 Medicaid [place] [employer] [id number] Private Health Insurance [id number] Unknown [id number] 2.16.840.1.578348.3.579.2. 531 Unknown [id number] 2.16.840.1.906210.3.579.2. 531 Unknown [id number] 2.16.840.1.166012.3.579.2. 531 Unknown [id number] 2.16.840.1.346936.3.579.2. 531 Unknown [id number] 2.16.840.1.543319.3.579.2. 531 Unknown [id number] 2.16.840.1.241274.3.579.2. 531 Unknown [id number] 2.16.840.1.326190.3.579.2. 531 Unknown [id number] 2.16.840.1.700528.3.579.2. 531 Unknown [id number] 2.16.840.1.432061.3.579.2. 531 Unknown [id number] 2.16.840.1.265299.3.579.2. 531 Unknown [id number] 2.16.840.1.169931.3.579.2. 531 Unknown [id number] 2.16.840.1.401965.3.579.2. 531 Unknown [id number] 2.16.840.1.786042.3.579.2. 531 Unknown [id number] 2.16.840.1.127679.3.579.2. 531 Unknown [id number] 2.16.840.1.982782.3.579.2. 531 Unknown [id number] 2.16.840.1.026280.3.579.2. 531 Unknown [id number] 2.16840.1.235284.3.579.2. 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 Start: 08-24-2019 End: 07-15-2022 Tobacco smoking status MIIS Smokes tobacco daily [facility] End: 12-05-2007 History of tobacco use Cigarette Smoker [facility] Start: 07-08-2022 Alcohol intake Current drinke r of alcohol (finding) [facility] Start: 11-29-2016 Tobacco Comment states 5 per w [facility] 11-29-16 [facility] Start: 11-25-2016 Alcohol Comment started drinki ng again spring - says 3-5 drink, 2-3 times/week [facility] Start: 06-28-2022 End: 07-08-2022 Exposure to SARS-CoV-2 (event) Not sure [facility] History of tobacco use Passive smoker [place] Start: 07-16-2022 End: 10-08-2022 Alcohol intake Ex-drinker (finding) [place] Start: 09-08-2023 Tobacco smoking status NHIS Never smoked tobacco (finding) [facility] Start: 04-05-2024 End: 09-14-2024 Sex Female (finding) [facility] NEGATED: Highlighted row [facility] Medical Equipment Procedure Code Equipment Code Equipment Origin al Text Equipment Identifier Dates Fluoroscopic guidance for insertion of tunnelled dialysis catheter Double-lumen haemodialysis catheter, implantable +[id number] FDA Start: 09-16-2023 Fluoroscopic guidance for insertion of tunnelled dialysis catheter Double-lumen haemodialysis catheter, implantable +[id number] FDA Start: 12-12-2023 Creation or revision of arteriovenous fistula Synthetic vascular graft ()[id number] FDA Start: 08-05-2024 Power Trial[employer] [id number] Start: 12-08-2014 Stent Ureteral D bl J 6 X 12 - [id number] Start: 12-20-2014 Cath Drainage 10 .2f Biliary - [id number] Start: 02-07-2015 CEMENT RESTRICTO R TORNIER FDA Start: 01-21-2024 Orthopaedic ceme nt, non-medicated ()[id number] FDA Start: 01-21-2024 Internal orthopa edic fixation system, cerclage wire/cable, sterile ()[id number] FDA Start: 01-21-2024 SHOULDER CAP RSA-PERF REV STD FDA Start: 01-21-2024 Orthopaedic bone screw, non-bioabsorbable, non-sterile ()[id number] FDA Start: 01-21-2024 Orthopaedic bone screw, non-bioabsorbable, non-sterile ()[id number] FDA Start: 01-21-2024 Reverse shoulder prosthesis base plate ()[id number] FDA Start: 01-21-2024 Polyethylene rev erse shoulder prosthesis cup ()[id number] FDA Start: 01-21-2024 Reverse shoulder prosthesis head ()[id number] FDA Start: 01-21-2024 Orthopaedic bone screw, non-bioabsorbable, non-sterile ()[id number] FDA Start: 01-21-2024 Coated shoulder humeral stem prosthesis ()[id number] FDA Start: 01-21-2024 CEMENT RESTRICTO R TORNIER FDA Start: 01-21-2024 SHOULDER CAP RSA-PERF REV STD FDA Start: 01-21-2024 CEMENT RESTRICTO R TORNIER FDA Start: 01-21-2024 SHOULDER CAP RSA-PERF REV STD FDA Start: 01-21-2024 CEMENT RESTRICTO R TORNIER FDA Start: 01-21-2024 SHOULDER CAP RSA-PERF REV STD FDA Start: 01-21-2024 Polyethylene rev erse shoulder prosthesis cup ()[id number] FDA Start: 02-04-2024 Reverse shoulder prosthesis head ()[id number] FDA Start: 02-04-2024 CEMENT RESTRICTO R TORNIER FDA Start: 01-21-2024 SHOULDER CAP RSA-PERF REV STD FDA Start: 01-21-2024 CEMENT RESTRICTO R TORNIER FDA Start: 01-21-2024 SHOULDER CAP RSA-PERF REV STD FDA Start: 01-21-2024 CEMENT RESTRICTO R TORNIER FDA Start: 01-21-2024 SHOULDER CAP RSA-PERF REV STD FDA Start: 01-21-2024 CEMENT RESTRICTO R TORNIER FDA Start: 01-21-2024 SHOULDER CAP RSA-PERF REV STD FDA Start: 01-21-2024 CEMENT RESTRICTO R TORNIER FDA Start: 01-21-2024 SHOULDER CAP RSA-PERF REV STD FDA Start: 01-21-2024 CEMENT RESTRICTO R TORNIER FDA Start: 01-21-2024 SHOULDER CAP RSA-PERF REV STD FDA Start: 01-21-2024 Polyethylene rev erse shoulder prosthesis cup ()[id number] FDA Start: 02-20-2024 Reverse shoulder prosthesis head ()[id number] FDA Start: 02-20-2024 Humeral body extension prosthesis ()[id number] FDA Start: 02-20-2024 CEMENT RESTRICTO R TORNIER FDA Start: 01-21-2024 SHOULDER CAP RSA-PERF REV STD FDA Start: 01-21-2024 CEMENT RESTRICTO R TORNIER FDA Start: 01-21-2024 SHOULDER CAP RSA-PERF REV STD FDA Start: 01-21-2024 CEMENT RESTRICTO R TORNIER FDA Start: 01-21-2024 SHOULDER CAP RSA-PERF REV STD FDA Start: 01-21-2024 CEMENT RESTRICTO R TORNIER FDA Start: 01-21-2024 SHOULDER CAP RSA-PERF REV STD FDA Start: 01-21-2024 CEMENT RESTRICTO R TORNIER FDA Start: 01-21-2024 SHOULDER CAP RSA-PERF REV STD FDA Start: 01-21-2024 CEMENT RESTRICTO R TORNIER FDA Start: 01-21-2024 SHOULDER CAP RSA-PERF REV STD FDA Start: 01-21-2024 CEMENT RESTRICTO R TORNIER FDA Start: 01-21-2024 SHOULDER CAP RSA-PERF REV STD FDA Start: 01-21-2024 CEMENT RESTRICTO R TORNIER FDA Start: 01-21-2024 SHOULDER CAP RSA-PERF REV STD FDA Start: 01-21-2024 CEMENT RESTRICTO R TORNIER FDA Start: 01-21-2024 SHOULDER CAP RSA-PERF REV STD FDA Start: 01-21-2024 CEMENT RESTRICTO R TORNIER FDA Start: 01-21-2024 SHOULDER CAP RSA-PERF REV STD FDA Start: 01-21-2024 CEMENT RESTRICTO R TORNIER FDA Start: 01-21-2024 SHOULDER CAP RSA-PERF REV STD FDA Start: 01-21-2024 CEMENT RESTRICTO R TORNIER FDA Start: 01-21-2024 SHOULDER CAP RSA-PERF REV STD FDA Start: 01-21-2024 CEMENT RESTRICTO R TORNIER FDA Start: 01-21-2024 SHOULDER CAP RSA-PERF REV STD FDA Start: 01-21-2024 Goals Date Patient Goal Desired Activity /State Comment on above: Formatting of this n ote might be different from the original. Walk 3500 steps a day Functional Status Date Assessment Result Facility 02-21-2024 Functional status Patient is Pro gressing Toward Baseline [facility] Work Phone: 09-27-2023 Functional status Patient is Pro gressing Toward Baseline [facility] Work Phone: 07-12-2022 Functional status Patient at Baseline [facility] Work Phone: 07-10-2022 Functional status Patient at Baseline [facility] Work Phone: Mental Status Date Assessment Result Facility 02-21-2024 Cognitive function Cognitive Sta tus Patient at Baseline [facility] Work Phone: 09-27-2023 Cognitive function Cognitive Sta tus Patient at Baseline [facility] Work Phone: 07-12-2022 Cognitive function Cognitive Sta tus Patient at Baseline [facility] Work Phone: 07-10-2022 Cognitive function Cognitive Sta tus Patient at Baseline [facility] Work Phone: Clinical Notes 05-04-2021 to 02-15-2025 Note Date & Type Note Facility 02-15-2025 Note Patient Education Ma terials Follows: Abrasion An abrasion is a cut or a scrape on your skin. An abrasion affects only the top layers of your skin. You must take care of your wound so germs do not get in it and cause infection. What are the causes? This condition is caused by rubbing your skin on something or falling on a rough surface, such as the ground. When your skin rubs on something, some layers of skin may rub off. What are the signs or symptoms? ? A cut or a scrape. ? Bleeding. ? A red or pink spot. ? A bruise under your wound. How is this treated? This condition may be treated by: ? Cleaning your wound. ? Putting an antibiotic on your wound. ? Putting a jelly on your wound to stop moisture from entering the wound. ? Putting a bandage on your wound. ? Getting a tetanus shot. Follow these instructions at home: Medicines ? Take or use utxq-hlr-jdzwhnl and prescription medicines only as told by your doctor. ? If you were prescribed antibiotics, use them as told by your doctor. Do not stop using them even if you start to feel better. Caring for your wound ? Clean your wound 1?2 times a day or as told by your doctor. 1. Wash your hands for at least 20 seconds with soap and water. Do this before and after you clean your wound. ? If you cannot use soap and water, use hand crop ranch hand. 2. Wash your wound with mild soap and water. You may also use a wound cleanser or saltwater solution, called saline. ? Do not use hydrogen peroxide or alcohol. These can slow healing. 3. Rinse off the soap. 4. Pat your wound with a clean towel to dry it. Do not rub your wound. 5. Put an antibiotic ointment on your wound as told by your doctor. You may also be told to put on a jelly that stops moisture from entering the wound. 6. Cover your wound with a bandage as told by your doctor. Small or very minor wounds may not need a bandage. ? Keep your bandage clean and dry. Take it off and change it as told by your doctor. ? You may have to change your bandage one or more times a day, or as told by your doctor. Watch for signs of infection Check your wound every day for signs of infection. Check for: ? A red streak that goes away from your wound. ? Other redness. ? Swelling or more pain. ? Warmth. ? Blood, fluid, pus, or a bad smell. Treat pain and swelling ? If told, put ice on the injured area. ? Put ice in a plastic bag. ? Place a towel between your skin and the bag. ? Leave the ice on for 20 minutes, 2?3 times a day. ? If your skin turns bright red, take off the ice right away to prevent skin damage. The risk of damage is higher if you cannot feel pain, heat, or cold. ? If you can, raise the injured area above the level of your heart while you are sitting or lying down. General instructions ? Do not take baths, swim, or use a hot tub. Ask your doctor about taking showers or sponge baths. ? Do not scratch or pick at scabs that may occur over the wound as it heals. Contact a doctor if: ? You had a tetanus shot, and you have any of these in the area where the needle went in: ? Swelling. ? Very bad pain. ? Redness. ? Bleeding. ? You have a lot of pain, and medicine does not help. ? You have a fever. ? You have any signs of infection in your wound. Get help right away if: ? You have a red streak going away from your wound. This information is not intended to replace advice given to you by your health care provider. Make sure you discuss any questions you have with your health care provider. Document Revised: 07/18/2023 Document Reviewed: 07/18/2023 [employer] Patient Education ? 2024 [employer] Orthopedics Distal Biceps Tendon Tear The distal biceps tendon is a strong cord of tissue that connects the biceps muscle to a bone (radius) in the elbow. The biceps muscle is a muscle on the front of the upper arm. A distal biceps tendon tear may include: ? A complete tear in the tendon, causing the tendon to completely separate from the radius. When this happens, the biceps muscle pulls up toward the shoulder. ? A partial tear in the tendon that causes the tendon to partially separate from the radius. This condition can affect your ability to turn your hand palm-up and bend your elbow. It is often treated with surgery. Recovery may take 4?8 months. What are the causes? This condition is usually caused by suddenly straightening the elbow while the biceps muscle is tightened (contracted). This could happen while lifting or carrying a heavy object that suddenly falls or shifts position. What increases the risk? The following factors may make you more likely to develop this condition: ? Being a 30?50 year old male. ? Smoking. ? Using steroids. What are the signs or symptoms? Symptoms of this condition may include: ? A feeling like a snap or a pop in the elbow at the time of injury. ? Pain, swelling, and bruising in (more content not included)... [facility] 07-20-2024 Evaluation note Diagnosis Onset Date Resolution End-stage renal disease on hemodialysis acute July 20 9:43am End-stage renal disease on hemodialysis acute August 23, 2024 10:49am Hemodialysis access, AV graft acute August 23, 2024 10:49am Closed fracture of right proximal humerus acute August 11:43am Dislocation of prosthesis of right glenohumeral joint acute September 07 11:43am History of revision of total shoulder arthroplasty acute September 07, 2024 11:43am Infection of prosthetic shoulder joint acute September 07, 2024 11:43am Status post reverse arthroplasty of right shoulder acute September 07, 2024 11:43am [facility] Work Phone: 1(156) 933-839302-25-2025 Evaluation note* Diagnosis Onset Date Resolution Status Admit Date End-stage renal disease on hemodialysis acute July 20 9:43am End-stage renal disease on hemodialysis acute August 23, 2024 10:49am Hemodialysis access, AV graft acute August 23, 2024 10:49am Closed fracture of right proximal humerus acute September 07 11:43am Dislocation of prosthesis of right glenohumeral joint acute August 242024 11:43am History of revision of total shoulder arthroplasty acute August 11:43am Infection of prosthetic shoulder joint acute September 07, 2024 11:43am Status post reverse arthroplasty of right shoulder acute A pri2024 11:43am Hemodialysis access, AV graft acute September 13, 2024 11:02am [facility] Work Phone: 1(863) 717-274702-06-2025 [facility] [place] [address] Ultrasound Report Signed Patient: Winnie Cai MR#: [id number] : 1985 Acct:[id number] Age/Sex: 39 / F ADM Date: 5 Loc: Room: Type: [facility] Attending Dr: Tima Lara MD Ordering Provider: Tima Lara MD Date of Service: 07/01/24 US/US map hemodial access ROBERTO: N18.5 Copies to: Tima Lara MD~ Bilateral upper extremity vein mapping examination Indication for study: Renal failure with need for dialysis access PROCEDURE: Color-flow duplex scanning and B-mode imaging is used to interrogate the venous anatomy of both upper extremities. In the patient's right arm the basilic vein above the elbow is still lessthan 3 mm along most of its course until near the axilla. The cephalic vein is less than 2 mm throughout its entirecourse. The subclavian vein has an indwelling catheter and the axillary vein is patent. The brachial artery is 5 mm and the radial artery is less than 2 mm. In the left upper extremity there are similar findings with the basilic vein being less than 2 mm throughout most of its course. Similar findings are noted in the cephalic vein which is quite small. The axillary and subclavian veins on the left are patent. The brachial artery is 5 mm and the radialartery is less than 2 mm. US/US map hemodial access ROBERTO IMPRESSION: Small venous anatomy with Limited options for creation of autologousaccess. The patientcould have upper arm prosthetic graft placed in either side. Impression dictated by: Arvind Sun M.D.07/01/2024 3:46 PM Dictation Location: [id number] Tech: Chanel Scott Transcribed By: KEN 07/01/24 154 Dictated By: Arvind Sun MD 07/01/24 1544 Signed By: 07/01/24 1546 [facility] Work Phone: 1(239) 256-549401-21-2025 Evaluation note* Diagnosis Onset Date Resolution Status Admit Date Closed fracture of right proximal humerus acute June 15, 025 11:43am Dislocation of prosthesis of right glenohumeral joint acute June 15, 2024 11:43am History of revision of total shoulder arthroplasty acute June 152024 11:43am Infection of prosthetic shoulder joint acute June 15 11:43am Status post reverse arthroplasty of right shoulder acute J anuary 2024 11:43am [facility] Work Phone: 1(782) 396-440201-21-2025 Evaluation note* Diagnosis Onset Date Resolution Status Admit Date Closed fracture of right proximal humerus acute June 15 11:43am Dislocation of prosthesis of right glenohumeral joint acute June 15, 2024 11:43am History of revision of total shoulder arthroplasty acute June 152024 11:43am Infection of prosthetic shoulder joint acute June 15 11:43am Status post reverse arthroplasty of right shoulder acute J anuary 2024 11:43am End-stage renal disease on hemodialysis acute July 20 9:43am [facility] Work Phone: 1(262) 949-518001-21-2025 Evaluation note* Diagnosis Onset Date Resolution Status Admit Date Closed fracture of right proximal humerus acute June 15 11:43am Dislocation of prosthesis of right glenohumeral joint acute June 15, 2024 11:43am History of revision of total shoulder arthroplasty acute June 152024 11:43am Infection of prosthetic shoulder joint acute June 15 11:43am Status post reverse arthroplasty of right shoulder acute J anuary 2024 11:43am End-stage renal disease on hemodialysis acute July 20 9:43am End-stage renal disease on hemodialysis acute August 23, 2024 10:49am Hemodialysis access, AV graft acute August 23, 2024 10:49am Closed fracture of right proximal humerus acute September 07 11:43am Dislocation of prosthesis of right glenohumeral joint acute August 242024 11:43am History of revision of total shoulder arthroplasty acute August 11:43am Infection of prosthetic shoulder joint acute September 07, 2024 11:43am Status post reverse arthroplasty of right shoulder acute A pril 2024 11:43am [facility] Work Phone: 1(871) 297-852811-11-2024 Evaluation note* Diagnosis Onset Date Resolution Status Admit Date Closed fracture of right proximal humerus acute April 05, 2024 2:54pm Dislocation of prosthesis of right glenohumeral joint acute r 2023 2:54pm History of revision of total shoulder arthroplasty acute March 262023 2:54pm Infection of prosthetic shoulder joint acute April 05, 2 024 2:54pm Status post reverse arthroplasty of right shoulder acute N ovember 2023 2:54pm Closed fracture of right proximal humerus acute June 15 2 025 11:43am Dislocation of prosthesis of right glenohumeral joint acute June 15, 2024 11:43am History of revision of total shoulder arthroplasty acute June 152024 11:43am Infection of prosthetic shoulder joint acute June 15 11:43am Status post reverse arthroplasty of right shoulder acute J anuary 2024 11:43am [facility] Work Phone: 1(465) 109-778711-07-2024 Evaluation note* Diagnosis Onset Date Resolution Status Admit Date ESRD (end stage renal diseas e) on dialysis acute April 01 1:52pm History of revision of total shoulder arthroplasty acute April 012023 1:52pm Infection of prosthetic shoulder joint acute April 01 1:52pm Receiving intravenous antibiotic treatment as outpatient acute April 01 1:52pm Staphylococcus epidermidis infection acute April 01 1:52pm Closed fracture of right proximal humerus acute April 05, 2024 2:54pm Dislocation of prosthesis of right glenohumeral joint acute 2023 2:54pm History of revision of total shoulder arthroplasty acute March 262023 2:54pm Infection of prosthetic shoulder joint acute April 05, 2 024 2:54pm Status post reverse arthroplasty of right shoulder acute N ovember 2023 2:54pm Closed fracture of right proximal humerus acute June 15, 2 025 11:43am Dislocation of prosthesis of right glenohumeral joint acute June 15, 2024 11:43am History of revision of total shoulder arthroplasty acute June 152024 11:43am Infection of prosthetic shoulder joint acute June 15 11:43am Status post reverse arthroplasty of right shoulder acute J anuary 2024 11:43am [facility] Work Phone: 1(756) 577-844909-28-2024 Progress note Author Marty Ashley [facility] February 21, 2024 11:04am Note Date/Time February 21, 2024 11:03am [facility] [address] [place] [address] Orthopedic Progress Note Signed Patient: Winnie Cai MR#: [id number] : 1985 Acct:[id number] Age/Sex: 38 / F Adm Date: 4 Loc: 4N Room: [address] [place] [address] Type: ADM IN Attending Dr: Chuy Mojica DO Copies to: ~ Date of Service: 02/21/2024 Exam Physical Exam Vital Signs: Temp Pulse Resp BP Pulse Ox O2 Del Method O2 Flow Rate 97.9 F 65 12 151/93 H 98 Room Air 2 02/21/24 10:24 02/21/24 10:24 02/21/24 10:02/21/24 10:02/21/24 10:02/21/24 10:02/20/24 18:15 Narrative: Patient is alert and oriented with no specific complaints. The wound is clean and dry. The involved extremity is neurovascular intact. Moving fingers well. Compartments soft. Objective Labs Labs: Laboratory Results - last 24 hr 02/20/24 02/20/24 12:38 15:38 Corrected WBC 6.5 Uncorrected WBC Count 6.5 RBC 3.31 L Hgb 10.4 L Hct 31.6 L MCV 95.5 MCH 31.4 MCHC 32.9 RDW 18.2 H Plt Count 247 MPV 7.5 Neut % (Auto) 47.7 Lymph % (Auto) 35.0 [place] % (Auto) 11.5 Eos % (Auto) 3.8 Baso % (Auto) 2.0 Nucleat RBC Rel Count 0.1 Neut # (Auto) 3.1 Lymph # (Auto) 2.3 [place] # (Auto) 0.7 Eos # (Auto) 0.2 Baso # (Auto) 0.1 PHA Creatinine Clear 19.28 Sodium 128 L Potassium 4.5 Chloride 93 L Carbon Dioxide 28.7 Anion Gap 10.8 BUN 23 Creatinine 3.35 H Est GFR (CKD-EPI) 17.120 Glucose 72 Calcium 9.3 HCG, Qual Indeterminate Synovial Color Red A Synovial Appearance Cloudy A Synov Supernatant Color Red Synovial RBC 045118 H Synovial Tot Nuc Cell 1690 H Synovial Neutrophils 71 H Synovial Eosinophils 0 Synov Monos/Histiocyte 8 Synovial Lymphocytes % 21 Micro Microbiology Results: Microbiology 02/20/24 15:33 Shoulder,Right - Other Aerobic Culture - Preliminary No Growth 1 Day 02/20/24 15:33 Shoulder,Right - Other Anaerobic Culture - Preliminary No Anaerobes Isolated 1 Day 02/20/24 15:33 Shoulder,Right - Other Aerobic Culture - Preliminary No Growth 1 Day 02/20/24 15:33 Shoulder,Right - Other Anaerobic Culture - Preliminary No Anaerobes Isolated 1 Day 02/20/24 15:34 Shoulder,Right - Other Aerobic Culture - Preliminary No Growth 1 Day 02/20/24 15:34 Shoulder,Right - Other Anaerobic Culture - Preliminary No Anaerobes Isolated 1 Day 02/20/24 15:38 Synovial Fluid - Other Aerobic Culture - Preliminary No Growth 1 Day 02/20/24 15:38 Synovial Fluid - Other Anaerobic Culture - Preliminary No Anaerobes Isolated 1 Day Assessment / Plan Assessment and plan (1) History of revision of total shoulder arthroplasty: Code(s): Z96.619 - Presence of unspecified artificial shoulder joint Plan Discharge home today. Follow-up in the office next week. Keep wound clean and dry. Progress active and passive motion right elbow and wrist Documented By: Marty Ashley MD 02/21/24 1102 Signed By: <Electronically signed by MD Marty Ashley> 02/21/24 1104 [facility] Work Phone: 1(311) 858-693109-09-2024 Evaluation note* Diagnosis Onset Date Resolution Status Admit Date Closed fracture of right proximal humerus acute February 02, 2024 8:47am Dislocation of prosthesis of right glenohumeral joint acute [facility] er 2023 8:47am Status post reverse arthroplasty of right shoulder acute [facility] 2023 8:47am Closed fracture of right proximal humerus acute February 16, 2024 8:51am Dislocation of prosthesis of right glenohumeral joint acute [facility] er 2023 8:51am History of revision of total shoulder arthroplasty acute February 16, 2024 8:51am Status post reverse arthroplasty of right shoulder acute [facility] 2023 8:51am History of revision of total shoulder arthroplasty acute February 20, 2024 11:41am Closed fracture of right proximal humerus acute February 23 10:56am Dislocation of prosthesis of right glenohumeral joint acute February 24, 2024 10:56am History of revision of total shoulder arthroplasty acute February 10:56am Status post reverse arthroplasty of right shoulder acute O ct2023 10:56am Closed fracture of right proximal humerus acute March 08, 2 024 8:46am Dislocation of prosthesis of right glenohumeral joint acute March 08, 2024 8:46am History of revision of total shoulder arthroplasty acute March 082023 8:46am Infection of prosthetic shoulder joint acute March 08 8:46am Status post reverse arthroplasty of right shoulder acute O ctober 2023 8:46am ESRD (end stage renal diseas e) on dialysis acute April 01 1:52pm History of revision of total shoulder arthroplasty acute April 012023 1:52pm Infection of prosthetic shoulder joint acute April 01 1:52pm Receiving intravenous antibiotic treatment as outpatient acute April 01 1:52pm Staphylococcus epidermidis infection acute April 01 1:52pm Closed fracture of right proximal humerus acute April 05, 2024 2:54pm Dislocation of prosthesis of right glenohumeral joint acute be r 2023 2:54pm History of revision of total shoulder arthroplasty acute March 262023 2:54pm Infection of prosthetic shoulder joint acute April 05, 2 024 2:54pm Status post reverse arthroplasty of right shoulder acute N ovember 2023 2:54pm [facility] Work Phone: 1([phone]) 394-443907-30-2024 Evaluation note* Author [facility] Authored December 23, 2023 2:05 pm 38 y/o female with history o f alcoholic liver cirrhosis s/p liver transplant in 2014 and 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 Patient fell and fractured her right humerus and was referred to the liver clinic for surgical clearance before surgery. Patient is on cyclosporine 75 mg daily and CellCept [address] abdomen showed normal bile ducts and postsurgical changes consistent with history of liver transplant. AST ALT were normal in 09/2023 + Ongoing alcohol use, patient drinks 10 drinks a week. -Will recheck liver enzymes. Patient was counseled about the importance of alcohol abstinence. There is no clinical or laboratory or radiologic evidence of abnormal liver/graft function. Patient is at low risk and does not have contraindication for surgery from the liver standpoint -Regarding posttransplant care: Will refer to dermatology for skin cancer screening, will arrange for DEXA scan for screening of osteoporosis, will check HAV and HBV serologies to determine the need for vaccinations. Patient was recommended to follow-up with PCP regarding other vaccinations. [facility] Work Phone: 1(511) 256-340807-30-2024 Hospital Discharge instructionsAmbulatory Orders* Referral to Dermatology Time Frame: 12/23/23, Location: None Selected [facility] Work Phone: 1(163) 910-689207-17-2024 Consult note Author Tima Lara [facility] December 10, 2023 3:40pm Note Date/Time December 10, 2023 3:[address] [facility] [address] [place] [address] Nephrology Consult Note Signed Patient: Winnie Cai MR#: [id number] : 1985 Acct:[id number] Age/Sex: 38 / F Adm Date: 4 Loc: ER Room: Type: [facility] Attending Dr: Copies to: NON STAFF KASI Hernandez MD~ Providers Consult Date: 12/10/23 Primary Care Provider: NON STAFF HPI Reason for Consult: Management of ESRD and dialysis History of Present Illness: Ms. 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 PD was started at [place] however he moved to [place] closer to her home. She has a history of liver transplant due to alcoholic liver cirrhosis at [facility] 2014. She did require hemodialysis in the perioperative period and later on was transitioned to PD. Recently she sustained a fall resulted and fracture of the right head of humerus that is currently in sling. She was not able to do PDso PD catheter was removed on August 2023 and she had tunneled hemodialysis catheter inserted at that time. Patient gets dialysis at [facility] dialysis unit on MWF schedule. Today the patient came to the ED after she accidentally pulled her hemodialysis catheter with extrusion of external cuff. Patient denies any fever or chills. No bleeding. Blood pressure was 122/82. Hemoglobin stable 9.1 g/dL that is improving compared to her previous admission 2 months ago. Chest x-ray in the emergency room showed a right IJ tunneled hemodialysis catheter in good position. I was called about the patient from the ER. Lab was reviewed. BUN was 9 and creatinine 4.3. Potassium 4.3 mmol/L. We called the vascular surgeon and outpatient replacement of hemodialysis catheter was arranged on Friday at 6 AM. Patient was brought to the inpatient dialysis unit to get dialysis before discharge today. Patient was seen and examined on dialysis. She feels comfortable with no shortness of breath. She has by herself however she is able to handle all her daily activities. She still drives. Patient stated that she is willing to comeon Friday at 6 AM to have the catheter change before her next hemodialysis. Review of Systems Review of Systems All other systems reviewed & are negative unless noted below or in HPI [facility] Medical History (Updated 12/10/23 @ 15:38 by Tima Lara MD) ESRD (end stage renal disease) on dialysis Peritoneal dialysis catheter mechanical complication Anemia of renal disease Rhabdomyolysis Weakness Hypothyroid Problem List clean-up per request of Phys. EHR Cmte Tobacco dependence Thyroid dysfunction Accelerated essential hypertension Anxiety History of shoulder fracture right History of peritoneal dialysis Surgical History Liver transplant status History of appendectomy Problem List clean-up per request of Phys. EHR Cmte History of cholecystectomy Problem List clean-up per request of Phys. EHR Cmte H/O splenectomy Problem List clean-up per request of Phys. EHR Cmte Liver transplant status received ;over transplant in 2014 Problem List clean-up per request of Phys. EHR Cmte Family History Family/Other Legacy FamHx Problem: SISTER IS NON MEDICAL:NO CHILDREN Social History Smoking Status: Current every day smoker Tobacco Type: cigarettes Substance Use Type: Alcohol and Marijuana Substance Abuse Comment: SOBER X 3 WEEKS. Meds Medications & Allergies Allergies fish oil Allergy (Unknown, Verified 09/17/23 15:25) Unknown Reaction Penicillins Allergy (Unknown, Verified 09/17/23 15:25) Unknown Reaction Sulfa (Sulfonamide Antibiotics) Allergy (Verified 09/17/23 15:25) Hives sulfamethoxazole [From Bactrim] Allergy (Verified 09/17/23 15:25) Hives trimethoprim [From Bactrim] Allergy (Verified 09/17/23 15:25) Hives Home Medications calcium acetate 667 mg tablet 667 mg PO TID 09/08/23 [History Confirmed 12/10/23] cyclosporine 100 mg capsule 75 mg PO DAILY 09/08/23 [History Confirmed 12/10/23] epoetin mariano 10,000 unit/mL injection solution (Epogen) 10,000 unit subcut .weekly 09/08/23 [History Confirmed 12/10/23] escitalopram oxalate 5 mg tablet (Lexapro) 15 mg PO DAILY 09/08/23 [History Confirmed 09/08/23] levothyroxine 75 mcg capsule 75 mcg PO DAILY 09/08/23 [History Confirmed 12/10/23] magnesium glycinate 100 mg tablet (Mag Glycinate) 100 mg PO BID 09/08/23 [History Confirmed 12/10/23] folic acid 1 mg tablet 5 mg (5 x 1 mg) PO DAILY #0 tabs 09/26/23 [Rx Confirmed 12/10/23] Active Medications: Active Medications Sodium Chloride (0.9% Sodium Chloride 1,000 Ml) 1,000 mls @ 0 mls/hr MISCELLANE.Q0M PRN PRN Reason: Dialysis Stop: 12/09/24 14:21 Last Infusion: 12/10/23 14:40 Dose: Infused Sodium Chloride (Sodium Chloride 0.9 % 10 Ml Syringe) 0 ml IV-PUSH PRN PRN PRN Reason: Flush Stop: 12/09/24 14:21 Exam Physical Exam Vital Signs: Temp Pulse Resp BP Pulse Ox O2 Del Method 36.6 C 60 16 122/82 94 L Room Air 12/10/23 14:10 12/10/23 15:00 12/10/23 14:10 12/10/23 15:00 12/10/23 14:10 12/10/23 14:10 Narrative: Constitutional: Still confused, looks ill and older than her stated age. HEENT: She has significant pallor. No jaundice or cyanosis. Mucous membranes are dry. Cardiovascular: RRR, 2/6 SM, normal S1-S2, no gallop or rub, No JVD Respiratory: Good bilateral air entry no wheezing or crackles Gastrointestinal: Soft, non tender, positive bowel sounds. Extremities: No edema. Right arm in sling Skin:Hematoma over the right arm extending to the chest Neurology: Awake, confused. She is able to respond to questions however she hasdifficulty finding words. Psych: Normal mood and affect Vascular access: Right IJ tunneled hemodialysis catheter, cuff is exposed however the catheter exit site is clean. Results - Nephrology Labs 12/10/23 14:10 12/10/23 14:10 Labs: 12/10/23 14:10 BUN 9 Creatinine 4.30 H Radiology Impressions Impressions - last 24 hours: Impressions Chest X-Ray 12/10/23 11:05 IMPRESSION: No acute process. Dialysis catheter unchanged. No worrisome complication. Impression dictated by: Arvind Meehan M.D.12/10/2023 11:45 AM Dictation Location: [place] [address] Any impression(s) listed above is documentation that was entered by the reading physician into a diagnostic report(s) for Winnie Briana Cai. I have reviewed the report(s) and am incorporating any findings in the treatment plan of this patient where applicable. A&P - Nephrology Assessment/Plan (1) ESRD (end stage renal disease) on dialysis: (2) Complications, dialysis, catheter, mechanical: Plan * Patient will get hemodialysis today with her regular dialysis order that was obtained from [facility] dialysis unit. She is on 3 and half hour, 3K bath. 1 to 2 L ultrafiltration as tolerated. She has no edema and blood pressure is well- controlled. * Outpatient tunneled hemodialysis catheter change has been arranged with vascular surgery on Friday at 6 AM. * Patient can be discharged after dialysis today. Will assess on Friday after hemodialysis catheter either the patient is can get dialysis treatment during her hospital stay or as outpatient. She normally gets dialysis at 11:30 PM. Documented By: Tima Lara MD 12/10/23 2067 Signed By: <Electronically signed by MD Tima Lara> 12/10/23 6072 [facility] Work Phone: 1(361) 876-485205-04-2024 Discharge summary Author Beba Ng [facility] September 27, 2023 12:22pm Note Date/Time September 27, 2023 12:13p [facility] ENTER [address] [place], [place] [id number] Discharge Summary Signed Patient: Winnie Cai MR#: [id number] : 1985 Acct:[id number] Age/Sex: 38 / F Adm Date: 4 Loc: 4 Room: [address] [place] [address]: Beba Ng MD Copies to: NON STAFF Beba Ng MD~ Providers Date of Discharge: 09/27/23 Discharging Provider: Beba Ng Primary Care Provider: NON STAFF Consults: 09/08/23 13:54 Consult to Case Management Routine Comment: CM Reason for Consult: Other Other and/or Abuse/Neglect Consult Reasons: Flagged for ETOH and Marijuana use 09/08/23 14:26 Consult to General Surgery Routine Comment: Consulting Provider: Hal Mejia Reason For Exam: PD catheter removal, broken can't be used Has Provider Been Notified: Yes Date of Notification: 09/08/23 Time of Notification: 17:08 Extended Comment: Possible peritonitis, exterior cuff is exposed 09/08/23 15:43 Consult to Nephrology Routine Comment: Consulting Provider: Tima Lara Has Provider Been Notified: Yes Date of Notification: 09/08/23 Time of Notification: 16:22 Extended Comment: already notified Reason for Consult: Renal Failure Hyper/Hypo Natremia 09/08/23 20:34 Consult to Pulmonology Routine Comment: Consulting Provider: Larry Bridges Reason For Exam: critical care Has Provider Been Notified: Yes Date of Notification: 09/09/23 Time of Notification: 07:19 09/08/23 23:39 Consult to Gastroenterology Routine Comment: Consulting Provider: Dominic Ac Reason For Exam: anemia, hepatic encephalopathy Has Provider Been Notified: Yes Date of Notification: 09/09/23 Time of Notification: 07:20 09/09/23 09:07 Consult to Pulmonology Routine Comment: Consulting Provider: Larry Bridges Reason For Exam: Temporary HD catheter Has Provider Been Notified: Yes Date of Notification: 09/09/23 Time of Notification: 09:24 09/10/23 15:55 Consult to Occupational Therapy Routine Comment: Physician Instructions: Consult to OT for:: Evaluation and Treat Consult to Physical Therapy Routine Comment: Physician Instructions: Consult to PT for:: Evaluation and Treat 09/10/23 17:36 Consult to Neurology Routine Comment: Consulting Provider: [facility] Reason For Exam: AMS Has Provider Been Notified: Yes Date of Notification: 09/11/23 Time of Notification: 06:48 09/11/23 09:18 Consult to Vascular Surgery Routine Comment: Consulting Provider: BENEDICTO - Vascular Surgery Reason For Exam: Tunneled HD catheter. Bl Cx is negative Has Provider Been Notified: Yes Date of Notification: 09/11/23 Time of Notification: 09:44 09/12/23 11:17 Consult to Orthopedic Surgery Routine Comment: 4t UC called orthopedics for consult Consulting Provider: BENEDICTO [facility] Reason For Exam: f/u right humerus fracture with low pulse Has Provider Been Notified: Yes Date of Notification: 09/12/23 Time of Notification: 12:21 09/16/23 08:19 Consult to Physiatry Routine Comment: Consulting Provider: Emeka Canales Reason For Exam: Rehab eval/post acute care needs Has Provider Been Notified: Yes Date of Notification: 09/16/23 Time of Notification: 08:27 Discharge Diagnosis (1) Peritoneal dialysis catheter mechanical complication: (2) Sepsis: (3) Metabolic encephalopathy: (4) Leucocytosis: (5) ESRD (end stage renal disease) on dialysis: (6) History of peritoneal dialysis: (7) History of shoulder fracture: (8) Anemia of renal disease: (9) Liver transplant status: (10) Rhabdomyolysis: (11) Hyponatremia: (12) Dehydration: (13) Weakness: (14) Closed fracture of right proximal humerus: (15) Alcohol abuse: Final Diagnosis Final Discharge Diagnosis: as above Summary Hospital Course Hospital course: A 38F with PMH of HTN, history of Alcoholic liver failure (s/p transplant at [id number]), 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 Patient had prolonged and complicated hospital course, assessment and plan as listed below. Sepsis secondary to C. Diff Infection Diarrhea resolved. Remains afebrile, hemodynamically stable, leukocytosis has normalized. CT abd showed diffuse wall thickening within the colon with accompanying pericolonic fat stranding. This is consistent with colitis which may be infectious or inflammatory. Also considered PD catheter malfunction as source of sepsis, but blood culture as well as catheter tip culture is negative She was started empirically on broad spectrum IV antibiotics with Invanz (PCN allergy) and Vancomycin IV initially. C.diff came back positive which explained her leukocytosis. Given no sign of other infection and negative blood Cx broad spectrum IV was discontinued -Completed vancomycin PO x10 days. Acute on Chronic Anemia Chronic Anemia of CKD Hemoglobin improved and has been stable. No signs of bleeding at this time. no overt bleeding. she follows up for anemia with [facility] Dm. GI evaluated the patient and advised that her anemia is due to ESRD, with no endoscopic evaluation advised at this time due to lack of evidence of signs of overt bleeding. -Patient has received 2 units packed red blood cells since presentation -Monitor CBC closely Folate Deficiency Folate low 5.7 she was started on supplement ESRD PD cath dysfunction Severe Hyponatremia -improved Nephrology was consulted for the management of dialysis and ESRD complication, recommendation appreciated. PD cath removed by General surgery and temporary R groin HD catheter placed by pulmonary -which was removed -Underwent tunneled HD cath, HD schedule per nephrology Liver Transplant She had liver transplant at [facility] back in 2014 due to Alcoholic liver failure. family said she may be she has not been taking her antirejection mediation. there is a high possibility of noncompliance. -Continue home anti-rejection medications Acute Metabolic Encephalopathy- resolved Mental status now at baseline. Likely multifactorial in the setting of possibleuremic encephalopathy, alcohol withdrawal, acute C. difficile infection. Ammonia level also elevated, but low suspicion that etiology is hepatic in origin. -Mental status back to baseline -Neurology recommendation appreciated; further workup per their recommendations -Treat C. difficile infection, maintain on HD schedule. Elevated Troponin In the setting of poor renal clearance, sepsis from C. difficile. Patient has no cardiorespiratory complaints. No EKG changes present Recent right traumatic proximal humerus fracture There is edema in her R arm and with some ecchymosis. there is no warmth, tenderness (lower form the shoulder) or erythema. Patient does continue to complain of pain. Seen on x-ray at [facility] on 09/01/2023. Orthopedic consult for possiblelate complication of humerus fracture. Discussed surgical versus conservative options with family. surgical intervention was not recommended, and she is to follow as outpatient. Due to weak pulse in her right arm PVR UE was done which was Normal -Nonweightbearing right upper extremity and sling for comfort -Pain control with morphine, Percocet-will be cautious with these medications given patient's liver and kidney issues -Plan for outpatient orthopedic follow up and management. Probable EtOH Abuse Disorder/withdrawal There is conflicting information about her drinking habit. The family doesn't know if she drinks at home. the patient has vague answers about the last time she had a drink. she reported to RN on admission that she still drinks. Blood alcohol concentration is not detected on admission -Stable so far -Multivitamin/folic acid/Thiamine -Symptom control and supportive care Sore Throat/Oral Candidiasis There was oral white Mucosal Lesions on her tongue which is slowly getting better local antifungal treatment w/nystatin Hypothyroidism TSH wnl; Synthroid was continued Poor Appetite Continue to encourage oral intake diet supplements dietitian input appreciated Rhabdomyolysis - resolved She was given IVF. CPK improved to normal Physical Deconditioning Secondary to multiple acute medical issues. PT/OT followed pt during hospital course -CM followed and it has been issue with her placement for more than a week for which pt remained in house. Finally patient was accepted to SNF and underwent her dialysis session today, outpatient dialysis set up for her. As of today, patient remained hemodynamically stable, medications been reconciled and addressed. Patient is suitable for discharge at this time with outpatient follow up. Discussed with patient, all questions answered. Patient has multiple complex medical issues as listed above and others that are not listed. All appear to be stable at this time. Patient is feeling significantly better and feeling comfortable with this plan of discharge. I do not have any clear or strong clinical justification to extend inpatient hospitalization. Patient however will require close and the frequent monitoringas well as additional work-up, investigation and therapeutic intervention that could take place from this point on post discharge. That is to prevent relapse,decompensation, rehospitalization and other medical implications. Outpatient follow up as directed for continuity of care. Verbal and written discharge instructions will be provided to the patient. Condition Condition at Discharge: Stable Time Spent with Patient Time spent providing/coordinating discharge services (# min): 40 Surgeries and Procedures Operation Date: 09/08/23 18:15 Actual Procedures p OR Remove PD cath(Not Applicable) - Hal Mejia DO Operation Date: 09/16/23 07:30 Actual Procedures p OR Catheter Dialysis Insertion(Not Applicable) - Arvind Sun MD Discharge Plan Discharge Plan Patient Disposition: Senior Care Facility Activity: Other Comment: Non-weight bearing to right upper extremity Diet: Renal Additional Instructions: SNF TO MANAGE: Follow precautions per protocol--C diff positive on 09/09 Monitor VS per protocol Monitor daily weights Monitor FSBS ACHS Monitor GI assessment and for signs of infection--Sepsis, Colitis, Hx of liver transplant Monitor assessment--ESRD, Hemodialysis Monitor Neuro. assessment--Encephalopathy Monitor Cardiac assessment--Elevated troponin Monitor Ortho. assessment--Right humerus fracture Please follow Ortho. recommendations: *Nonweightbearing right upper extremity. Sling for comfort Daily wound care to abdomen: wet to dry packing change to cath site wound Continue hemodialysis as scheduled Maintain and routine care to Hemodialysis catheter--inserted on 09/15 to rightchest Maintain high risk fall precautions Care to be managed by SNF providers Prescriptions: New nystatin 100,000 unit/mL Suspension 400,000 unit PO TID Qty: 0 0RF thiamine HCl (vitamin B1) 100 mg Tablet 100 mg PO BID Qty: 0 0RF pantoprazole 40 mg Tablet,Delayed Release (Dr/Ec) 40 mg PO DAILY Qty: 0 0RF folic acid 1 mg Tablet 5 mg PO DAILY Qty: 0 0RF ondansetron 4 mg Tablet,Disintegrating 4 mg PO Q6HR PRN (Reason: Nausea And Vomiting) Qty: 0 0RF Magic Mouthwash With Lidocaine 5 ml PO Q4HR PRNQty: 0 0RF oxycodone-acetaminophen 5-325 mg tablet 1 tab PO Q8HR PRN (Reason: pain) 3 Days Qty: 9 0RF tramadol 25 mg tablet 25 mg PO Q12HR PRN (Reason: pain) 3 Days Qty: 6 0RF Continued calcium acetate 667 mg tablet 667 mg PO TID cyclosporine 100 mg capsule 75 mg PO DAILY levothyroxine 75 mcg capsule 75 mcg PO DAILY metoprolol succinate 50 mg tablet extended release 24 hr 50 mg PO QHS mycophenolate sodium [Myfortic] 360 mg tablet,delayed release (DR/EC) 720 mg PO DAILY Epogen 10,000 unit/mL solution 10,000 unit subcut .weekly gentamicin 0.1 % cream 1 applic topical DAILY escitalopram oxalate [Lexapro] 5 mg tablet 15 mg PO DAILY Mag Glycinate 100 mg tablet 100 mg PO BID Discontinued levothyroxine 75 mcg tablet 75 mcg PO DAILY Patient Comments: TAKE 1 TABLET BY MOUTH ONCE DAILY omeprazole 20 mg Capsule,Delayed Release(Dr/Ec) 20 mg PO DAILY metoprolol tartrate 25 mg Tablet 50 mg PO DAILY nifedipine 30 mg tablet extended release 24hr 30 mg PO HS Patient Comments: TAKE 1 TABLET BY MOUTH ONCE DAILY, HOLD IF BP < 140/90 cyclosporine modified 25 mg capsule 75 mg PO QAM Patient Comments: TAKE 3 CAPSULES BY MOUTH EVERY 12 HOURS escitalopram oxalate 10 mg tablet 15 mg PO QHS Patient Comments: TAKE 1 & 1/2 (ONE & ONE-HALF) TABLETS BY MOUTH ONCE DAILY calcium acetate(phosphat bind) 667 mg capsule 50 mg PO TID.LUNCH.SUPPER.HS Patient Comments: TAKE 2 CAPSULES BY MOUTH THREE TIMES DAILY WITH MEALS AND 1 CAP WITH SNACKS gentamicin 0.1 % cream 1 applic TOPICAL DAILY Patient Comments: APPLY CREAM TOPICALLY ONCE DAILY DIRECTED ondansetron 4 mg tablet,disintegrating 4 mg PO Q8H PRN (Reason: Nausea) Patient Comments: DISSOLVE 1 TABLET IN MOUTH EVERY 8 HOURS NEEDED FOR NAUSEA FOR VOMITING alprazolam [Xanax] 0.5 mg Tablet 0.5 mg PO QHS PRN (Reason: Anxiety) losartan 25 mg Tablet 25 mg PO BID cyclosporine modified 50 mg Capsule 50 mg PO HS alprazolam 0.25 mg tablet 0.25 mg PO QHS PRN (Reason: sleep) omeprazole 20 mg capsule,delayed release(DR/EC) 20 mg PO DAILY Rx Instructions: Medication Name: Omeprazole; Note: Source Status: Taking; Provider: Leo Messer ( ) orphenadrine citrate 100 mg tablet extended release 100 mg PO BID oxycodone-acetaminophen 5-325 mg tablet 1 tab PO Q4HR PRN (Reason: pain) protein supplement Liquid 1 ea PO .three times a week losartan 50 mg tablet 50 mg PO QHS potassium chloride 20 mEq tablet extended release 20 meq PO DAILY Follow Up: [facility] [Provider Group] (Follow-up with Neurology after discharge from SNF.) Chuy Mojica DO [Active Staff] - (Please call for an appointment in 2 weeks.) Exam Physical Exam Vital Signs: Temp Pulse Resp BP Pulse Ox O2 Del Method O2 Flow Rate 97.5 F L 69 16 106/65 98 Room Air 6 09/27/23 09:25 09/27/23 12:00 09/27/23 09:25 09/27/23 12:00 09/27/23 09:25 09/27/23 09:25 09/08/23 19:23 Narrative: Constitutional: middle-aged WF, resting in bed comfortably Cardiovascular: RRR, no M/R/G, normal S1 and S2, no JVD Respiratory: Lungs clear to auscultation bilaterally, no wheezes, rales or rhonchi GI: Soft, NTND, normoactive bowel sounds : Deferred Neuro: AAO x3, no obvious new focal deficits. Extremities: No clubbing, cyanosis.RUE in sling. limited range of motion secondary to pain. Psych: Patient calm, cooperative and conversant Diagnostic Studies Completed and Pending Studies Pending studies at discharge: 09/11/23 05:21 Phosphatidylethanol Routine Labs on day of discharge: 09/27/23 10:46: POC Glucose 86 09/27/23 09:25: PHA Creatinine Clear 13.26, Sodium 129 L, Potassium 3.6, Chloride 91 L, Carbon Dioxide 31.3 H, Anion Gap 10.3, BUN 14, Creatinine 4.87 H,Est GFR (CKD-EPI) 10.928, Glucose 87, Calcium 8.8, Phosphorus 2.7, Albumin 2.0 L 09/27/23 07:37: POC Glucose 75 09/26/23 21:05: POC Glucose 84 09/26/23 16:10: POC Glucose 88 Documented By: Beba Ng MD 09/27/23 12 13 Signed By: <Electronically signed by Beba Ng MD> 09/27/23 2577 [facility] Work Phone: 1(608) 416-728305-04-2024 Progress note Author Pedro Floyd [facility] September 27, 2023 11:26am Note Date/Time September 27, 2023 11:26a m [facility] [address] [place] [address] Nephrology Progress Note Signed Patient: Wninie Cai MR#: [id number] : 1985 Acct:[id number] Age/Sex: 38 / F Adm Date: 4 Loc: Room: [address] [place] [address] Type: ADM IN Attending Dr: Beba Ng MD Copies to: ~ Date of Service: 09/27/2023 Subjective Subjective Narrative: Ms. 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 PD was started at [place] however he moved to [place] closer to her home. She has a history of liver transplant due to alcoholic liver cirrhosis at [facility] 2014. She did require hemodialysis in the perioperative period and later on was transitioned to PD. Patient has been noncompliant with peritoneal dialysis and missing multiple treatments at home per her records. Patient was brought to the ER on 09/07 as she has been significantly weak and dehydrated. Patient sustained a fall after she tripped last week and went to [facility] ER but she was found to have fracture of the right head of humerus. Right hand currently in sling dressing she is supposed to see orthopedics as outpatient. Patient was not able to do peritoneal dialysis at home since she has limited mobility of the right arm. Patient reported that she has not been eating or drinking over the last few days. Evaluation in the ER showed large hematoma around the shoulder and the chest. She was tachycardic 111 however blood pressure 115/73. No fever or chills. WBCs count was found to be [id number]. Patient was started empirically on vancomycin and Zosyn after 2 sets ofblood culture was obtained. Hemoglobin was low 7.3 compared to 10 g/dL on . She has mildly elevated INR 1.4 despite she is not on any blood thinners medication. There is a report by nursing staff that patient still drinking vodka however it does not confirm. Ethyl alcohol level on admission was less than 10 mg/dL. Interval history: Patient was seen and examined at bedside during hemodialysis. Denies any chest pain palpation cough nausea vomiting or shortness of breath Exam Physical Exam Vital Signs: Temp Pulse Resp BP Pulse Ox O2 Del Method O2 Flow Rate 97.5 F L 73 16 100/63 98 Room Air 6 09/27/23 09:25 09/27/23 11:00 09/27/23 09:25 09/27/23 11:00 09/27/23 09:25 09/27/23 09:25 09/08/23 19:23 Narrative: General: Appears comfortable and not in distress Heart: S1-S2, no rub Lung: Bilateral air entry, no wheezing or crackles Abdomen: Soft, positive bowel sounds Extremities: No edema, no cyanosis Head: Atraumatic, normocephalic Ear: No gross hearing Deficit or external ear redness Eyes: No pallor or redness Neck: No JVD or visible mass Skin: No rashes , warm to touch 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,Alert, following simple command Psychiatric: Cooperative, normal mood and affect Objective Intake and Output I&O: Intake & Output 09/24/23 09/25/23 09/26/23 09/27/23 23:59 23:59 23:59 23:59 Intake Total 750 / 750 1510 / 1510 770 / 770 850 / 850 Output Total 485 / 485 Balance 750 / 750 1025 / 1025 770 / 770 850 / 850 Weight 62.4 kg 62 kg 63 kg 62.5 kg Meds and Allergies Meds: Active Medications Calcium Acetate (Calcium Acetate 667 Mg Capsule) 667 mg PO TID.WITH.MEALS [facility] Stop: 09/08/24 11:59 Last Admin: 09/27/23 08:15 Dose: 667 mg Cyclosporine (Cyclosporine Modified 25 Mg Capsule) 75 mg PO DAILY [facility] Stop: 09/08/24 11:29 Last Admin: 09/26/23 08:39 Dose: 75 mg Darbepoetin Mariano (Darbepoetin Mariano In Polysorbat 60 Mcg/Ml Vial) 60 mcg IV-PUSHTh@0900 [facility]; Protocol Stop: 09/10/24 09:29 Last Admin: 09/25/23 10:35 Dose: 60 mcg Dextrose (Dextrose 50% In Water 25 Gm/50 Ml Syringe) 0 gm IV-PUSH PRN PRN PRN Reason: Hypoglycemia Stop: 09/07/24 17:35 Last Admin: 09/08/23 18:00 Dose: 25 gm Escitalopram Oxalate (Escitalopram 5 Mg Tablet) 15 mg PO DAILY SERENA Stop: 09/08/24 11:29 Last Admin: 09/26/23 08:38 Dose: 15 mg Ferric Sodium Gluconate Complex (Sodium Ferric Gluconat/Sucrose 62.5 Mg/5 Ml Vial) 62.5 mg IV-PUSH Th@0900 SERENA Stop: 09/10/24 09:29 Last Admin: 09/25/23 10:35 Dose: 62.5 mg Folic Acid (Folic Acid 1 Mg Tablet) 5 mg PO DAILY SERENA Stop: 09/11/24 08:59 Last Admin: 09/26/23 08:38 Dose: 5 mg Heparin Sodium (Porcine) (Heparin 10,000 Unit/10 Ml Vial) 4,100 unit IV PRN PRN PRN Reason: Dialysis Stop: 09/15/24 09:17 Last Admin: 09/27/23 09:33 Dose: 4,100 unit Heparin Sodium (Porcine) (Heparin 10,000 Unit/10 Ml Vial) 2,000 unit IV PRN PRN PRN Reason: Dialysis Stop: 09/17/24 12:49 Last Admin: 09/27/23 09:33 Dose: 2,000 unit Heparin Sodium (Porcine) (Heparin 10,000 Unit/10 Ml Vial) 1,000 unit IV PRN PRN PRN Reason: Dialysis Stop: 09/24/24 10:47 Last Admin: 09/27/23 09:34 Dose: 1,000 unit Sodium Chloride (0.9% Sodium Chloride 1,000 Ml) 1,000 mls @ 0 mls/hr MISCELLANE.Q0M PRN PRN Reason: Dialysis Stop: 09/08/24 09:07 Last Infusion: 09/27/23 09:35 Dose: Infused Levothyroxine Sodium (Levothyroxine 75 Mcg Tablet) 75 mcg PO DAILY@0630 [facility] Stop: 09/08/24 10:59 Last Admin: 09/27/23 05:51 Dose: 75 mcg Lidocaine HCl (Lidocaine 1% 50 Ml Vial) 0.1 ml INTRADERMA PREOP PRN PRN Reason: Venipuncture x 1 Dose Lidocaine HCl (Lidocaine 2% Viscous 100 Ml Bottle) 15 ml MUCOUS MEM Q4H PRN PRN Reason: Sore Throat Stop: 09/22/24 14:31 Magnesium Oxide (Magnesium Oxide 400 Mg Tablet) 200 mg PO DAILY [facility] Stop: 09/09/24 08:59 Last Admin: 09/26/23 08:38 Dose: 200 mg Metoprolol Succinate (Metoprolol Succinate 50 Mg Tab.Er.24h) 50 mg PO QHS [facility] Stop: 09/07/24 21:59 Last Admin: 09/26/23 21:31 Dose: 50 mg Morphine Sulfate (Morphine Sulfate 2 Mg/Ml Vial) 1 mg IV-PUSH Q4H PRN PRN Reason: Pain Scale 7 - 10 Last Admin: 09/18/23 21:44 Dose: 1 mg Multi-Ingredient Mouthwash/Gargle (Magic Mouthwash With Lidocaine) 5 ml PO [id number] PRN Reason: Mouth Pain Stop: 09/15/24 21:59 Last Admin: 09/24/23 18:38 Dose: 5 ml Multivitamins (Multivitamin 1 Tab Tablet) 1 tab PO DAILY [facility] Stop: 09/08/24 08:59 Last Admin: 09/26/23 08:37 Dose: 1 tab Mycophenolate Sodium (Mycophenolate Sodium 180 Mg Tablet. *Nf*) 720 mg PO DAILY [facility] Stop: 09/08/24 11:29 Last Admin: 09/26/23 08:40 Dose: 720 mg Nicotine (Nicotine Patch 21 Mg/24hr 1 Each Patch.Td24) 1 each TRANSDERML DAILY PRN PRN Reason: Nicotine Cravings Stop: 10/27/23 09:01 Last Admin: 09/26/23 21:32 Dose: 1 each Nystatin (Nystatin Susp 500,000 Unit/5 Ml Udc) 400,000 unit PO TID [facility] Stop: 09/15/24 21:59 Last Admin: 09/27/23 08:14 Dose: 400,000 unit Ondansetron HCl (Ondansetron 4 Mg/2 Ml Vial) 4 mg IV-PUSH Q6H PRN PRN Reason: Nausea And Vomiting Stop: 09/07/24 15:48 Last Admin: 09/11/23 14:02 Dose: 4 mg Ondansetron HCl (Ondansetron Odt 4 Mg Tab.Rapdis) 4 mg PO Q6HR PRN PRN Reason: Nausea And Vomiting Stop: 09/25/24 11:09 Last Admin: 09/26/23 12:01 Dose: 4 mg Oxycodone/Acetaminophen (Oxycodone/Acetaminophen 5-325 Mg Tablet) 1 tab PO [id number] PRN Reason: Pain Last Admin: 09/27/23 05:51 Dose: 1 tab Pantoprazole Sodium (Pantoprazole 40 Mg Tablet.Dr) 40 mg PO DAILY SERENA Stop: 09/11/24 08:59 Last Admin: 09/26/23 08:39 Dose: 40 mg Potassium Chloride (Potassium Chloride Er 20 Meq Tab.Er.Prt) 40 meq PO DAILY PRN PRN Reason: Hypokalemia Stop: 09/07/24 15:48 Last Admin: 09/20/23 13:51 Dose: 40 meq Sodium Chloride (Sodium Chloride 0.9 % 10 Ml Syringe) 0 ml IV-PUSH PRN PRN PRN Reason: Flush Stop: 09/07/24 09:51 Last Admin: 09/23/23 09:42 Dose: 40 ml Sodium Chloride (Sodium Chloride 0.9 % 10 Ml Vial.Pf) 0 ml IV PRN PRN PRN Reason: ATIVAN DILUTION Stop: 09/07/24 19:07 Sodium Chloride (Sodium Chloride 0.9 % 10 Ml Syringe) 0 ml IV-PUSH PRN PRN PRN Reason: Flush Stop: 09/08/24 09:07 Last Admin: 09/27/23 09:33 Dose: 40 ml Thiamine HCl (Thiamine 100 Mg Tablet) 100 mg PO BID SERENA Stop: 09/07/24 20:59 Last Admin: 09/26/23 21:31 Dose: 100 mg Tramadol HCl (Tramadol 50 Mg Tablet) 25 mg PO Q12H PRN PRN Reason: Pain Stop: 03/23/24 09:38 Last Admin: 09/27/23 01:42 Dose: 25 mg Allergies fish oil Allergy (Unknown, Verified 09/17/23 15:25) Unknown Reaction Penicillins Allergy (Unknown, Verified 09/17/23 15:25) Unknown Reaction Sulfa (Sulfonamide Antibiotics) Allergy (Verified 09/17/23 15:25) Hives sulfamethoxazole [From Bactrim] Allergy (Verified 09/17/23 15:25) Hives trimethoprim [From Bactrim] Allergy (Verified 09/17/23 15:25) Hives Results - Nephrology Labs 09/24/23 04:21 09/27/23 09:25 Labs: 09/27/23 09:25 BUN 14 Creatinine 4.87 H Phosphorus 2.7 Albumin 2.0 L Radiology Impressions Impressions - last 24 hours: Any impression(s) listed above is documentation that was entered by the reading physician into a diagnostic report(s) for Winnie Cai. I have reviewed the report(s) and am incorporating any findings in the treatment plan of this patient where applicable. A&P - Nephrology Assessment/Plan (1) ESRD (end stage renal disease) on dialysis: Plan: Patient has ESRD related to combination of hepatorenal syndrome and cyclosporine toxicity. Patient had REED at the time of liver transplant as well and she did require short period of hemodialysis. Patient is back on dialysis since 05/04/2021. She was switched to IHD from PD on 09/07 after she fell and fractured her right arm. (2) History of peritoneal dialysis: Plan: PD catheter was removed on 09/07 as it was broken and not usable. Patient also not able to do PD related to right arm fracture. PD catheter tip culture is negative (3) History of shoulder fracture: Plan: Patient has right humerus fracture s/p fall after she tripped at home. (4) Anemia of renal disease: Assessment/Problem Details: Hemoglobin below the goal. She was transfused 2 unit of PRBC. (5) Liver transplant status: Plan: Patient status post liver transplant at [facility] on October 2014. She has mild elevated AST however ALT and bilirubin are normal. Plan * Hemodialysis today as ordered. * Continue Aranesp 60 mcg and Ferrlecit 62.5 mg weekly with dialysis. She has adequate iron stores. * Continue current liver transplant medications including mycophenolate 720 mg p.o. daily and cyclosporine 75 mg p.o. daily. * Documented By: Pedro Floyd MD 09/27/23 1123 Signed By: <Electronically signed by Pedro Floyd MD> 09/27/23 1126 [facility] Work Phone: 1([phone]) 221-888705-03-2024 Progress note Author Bbea Ng [facility] September 26, 2023 1:20pm Note Date/Time September 26, 2023 1:20pm [facility] [address] [place] [address] Hospitalist Progress Note Signed Patient: Winnie Cai MR#: [id number] : 1985 Acct:[id number] Age/Sex: 38 / F Adm Date: 4 Loc: 4P Room: [address] [place] [address] Type: ADM IN Attending Dr: Beba Ng MD Copies to: ~ Date of Service: 09/26/2023 Subjective Subjective Narrative: No acute events noted overnight. Remained hemodynamically stable. had an episodeof vomiting relates it to not eating breakfast and taking pills on empty stomach. Still awaiting on placement. Exam Physical Exam Vital Signs: Temp Pulse Resp BP Pulse Ox O2 Del Method O2 Flow Rate 98.3 F 80 20 122/79 98 Room Air 6 09/26/23 11:53 09/26/23 11:53 09/26/23 11:53 09/26/23 11:53 09/26/23 11:53 09/26/23 11:53 09/08/23 19:23 Narrative: Constitutional: middle-aged WF, resting in bed in mild pain due to right upper extremity injury Cardiovascular: RRR, no M/R/G, normal S1 and S2, no JVD Respiratory: Lungs clear to auscultation bilaterally, no wheezes, rales or rhonchi GI: Soft, NTND, normoactive bowel sounds : Deferred Neuro: AAO x3, no focal deficits. CN III-XII grossly intact, Strength 5/5 throughout Extremities: No clubbing, cyanosis. RUE edematous, in sling on my assessment. limited range of motion secondary to pain. Psych: Patient calm, cooperative and conversant Objective Lab Results 09/24/23 04:21 09/25/23 09:30 Meds Allergies and Active Meds Allergies fish oil Allergy (Unknown, Verified 09/17/23 15:25) Unknown Reaction Penicillins Allergy (Unknown, Verified 09/17/23 15:25) Unknown Reaction Sulfa (Sulfonamide Antibiotics) Allergy (Verified 09/17/23 15:25) Hives sulfamethoxazole [From Bactrim] Allergy (Verified 09/17/23 15:25) Hives trimethoprim [From Bactrim] Allergy (Verified 09/17/23 15:25) Hives Active Meds: Active Medications Generic Name Dose Route Start Last Admin Trade Name Freq PRN Reason Stop Dose Admin Calcium Acetate 667 mg 09/09/23 12:00 09/26/23 12:01 Calcium Acetate 667 Mg Capsule PO 09/08/24 11:59 667 mg TID.WITH.MEALS SERENA Administration Cyclosporine 75 mg 09/09/23 11:30 09/26/23 08:39 Cyclosporine Modified 25 Mg Capsule PO 09/08/24 11:29 75 mg DAILY SERENA Administration Darbepoetin Mariano 60 mcg 09/11/23 09:30 09/25/23 10:35 Darbepoetin Mariano In Polysorbat 60 Mcg/Ml Vial IV-PUSH 09/10/24 09:29 60 mcg Th@0900 [facility] Administration Protocol Dextrose 0 gm 09/08/23 17:36 09/08/23 18:00 Dextrose 50% In Water 25 Gm/50 Ml Syringe IV-PUSH 09/07/24 17:35 25 gm PRN PRN Administration Hypoglycemia Escitalopram Oxalate 15 mg 09/09/23 11:30 09/26/23 08:38 Escitalopram 5 Mg Tablet PO 09/08/24 11:29 15 mg DAILY SERENA Administration Ferric Sodium Gluconate Complex 62.5 mg 09/11/23 09:30 09/25/23 10:35 Sodium Ferric Gluconat/Sucrose 62.5 Mg/5 Ml Vial IV-PUSH 09/10/24 09:29 62.5 mg Th@0900 SERENA Administration Folic Acid 5 mg 09/12/23 09:00 09/26/23 08:38 Folic Acid 1 Mg Tablet PO 09/11/24 08:59 5 mg DAILY SERENA Administration Heparin Sodium (Porcine) 4,100 unit 09/16/23 09:18 09/25/23 10:35 Heparin 10,000 Unit/10 Ml Vial IV 09/15/24 09:17 4,100 unit PRN PRN Administration Dialysis Heparin Sodium (Porcine) 2,000 unit 09/18/23 12:50 09/25/23 10:36 Heparin 10,000 Unit/10 Ml Vial IV 09/17/24 12:49 2,000 unit PRN PRN Administration Dialysis Heparin Sodium (Porcine) 1,000 unit 09/25/23 10:48 09/25/23 11:02 Heparin 10,000 Unit/10 Ml Vial IV 09/24/24 10:47 1,000 unit PRN PRN Administration Dialysis Sodium Chloride 1,000 mls @ 0 mls/hr 09/09/23 09:08 09/25/23 10:38 0.9% Sodium Chloride 1,000 Ml MISCELLANE 09/08/24 09:07 Infused .Q0M PRN Infusion Dialysis As Directed Levothyroxine Sodium 75 mcg 09/09/23 11:00 09/26/23 06:05 Levothyroxine 75 Mcg Tablet PO 09/08/24 10:59 75 mcg DAILY@0630 SERENA Administration Lidocaine HCl 0.1 ml 09/16/23 05:39 Lidocaine 1% 50 Ml Vial INTRADERMA PREOP PRN Venipuncture x 1 Dose Lidocaine HCl 15 ml 09/23/23 14:32 Lidocaine 2% Viscous 100 Ml Bottle MUCOUS MEM 09/22/24 14:31 Q4H PRN Sore Throat Magnesium Oxide 200 mg 09/10/23 09:00 09/26/23 08:38 Magnesium Oxide 400 Mg Tablet PO 09/09/24 08:59 200 mg DAILY SERENA Administration Metoprolol Succinate 50 mg 09/08/23 22:00 09/25/23 21:05 Metoprolol Succinate 50 Mg Tab.Er.24h PO 09/07/24 21:59 Not Given QHS SERENA Morphine Sulfate 1 mg 09/12/23 19:31 09/18/23 21:44 Morphine Sulfate 2 Mg/Ml Vial IV-PUSH 1 mg Q4H PRN Administration Pain Scale 7 - 10 Multi-Ingredient Mouthwash/Gargle 5 ml 09/16/23 18:52 09/24/23 18:38 Magic Mouthwash With Lidocaine PO 09/15/24 21:59 5 ml Q4HR PRN Administration Mouth Pain Multivitamins 1 tab 09/09/23 09:00 09/26/23 08:37 Multivitamin 1 Tab Tablet PO 09/08/24 08:59 1 tab DAILY SERENA Administration Mycophenolate Sodium 720 mg 09/09/23 11:30 09/26/23 08:40 Mycophenolate Sodium 180 Mg Tablet. *Nf* PO 09/08/24 11:29 720 mg DAILY SERENA Administration Nicotine 1 each 09/15/23 15:09 09/24/23 08:18 Nicotine Patch 21 Mg/24hr 1 Each Patch.Td24 TRANSDERML 10/27/23 09:01 1 each DAILY PRN Administration Nicotine Cravings Nystatin 400,000 unit 09/16/23 22:00 09/26/23 08:39 Nystatin Susp 500,000 Unit/5 Ml Udc PO 09/15/24 21:59 400,000 unit TID SERENA Administration Ondansetron HCl 4 mg 09/08/23 15:49 09/11/23 14:02 Ondansetron 4 Mg/2 Ml Vial IV-PUSH 09/07/24 15:48 4 mg Q6H PRN Administration Nausea And Vomiting Ondansetron HCl 4 mg 09/26/23 11:10 09/26/23 12:01 Ondansetron Odt 4 Mg Tab.Rapdis PO 09/25/24 11:09 4 mg Q6HR PRN Administration Nausea And Vomiting Oxycodone/Acetaminophen 1 tab 09/24/23 12:10 09/26/23 00:00 Oxycodone/Acetaminophen 5-325 Mg Tablet PO 1 tab Q8HR PRN Administration Pain Pantoprazole Sodium 40 mg 09/12/23 09:00 09/26/23 08:39 Pantoprazole 40 Mg Tablet.Dr PO 09/11/24 08:59 40 mg DAILY SERENA Administration Potassium Chloride 40 meq 09/08/23 15:49 09/20/23 13:51 Potassium Chloride Er 20 Meq Tab.Er.Prt PO 09/07/24 15:48 40 meq DAILY PRN Administration Hypokalemia Sodium Chloride 0 ml 09/08/23 09:52 09/23/23 09:42 Sodium Chloride 0.9 % 10 Ml Syringe IV-PUSH 09/07/24 09:51 40 ml PRN PRN Administration Flush Sodium Chloride 0 ml 09/08/23 19:08 Sodium Chloride 0.9 % 10 Ml Vial.Pf IV 09/07/24 19:07 PRN PRN ATIVAN DILUTION Sodium Chloride 0 ml 09/09/23 09:08 09/25/23 10:36 Sodium Chloride 0.9 % 10 Ml Syringe IV-PUSH 09/08/24 09:07 40 ml PRN PRN Administration Flush Thiamine HCl 100 mg 09/08/23 21:00 09/26/23 08:38 Thiamine 100 Mg Tablet PO 09/07/24 20:59 100 mg BID SERENA Administration Tramadol HCl 25 mg 09/25/23 09:39 09/26/23 08:37 Tramadol 50 Mg Tablet PO 03/23/24 09:38 25 mg Q12H PRN Administration Pain A&P - Hospitalist Assessment/Plan (1) ESRD (end stage renal disease) on dialysis: (2) History of peritoneal dialysis: (3) History of shoulder fracture: (4) Anemia of renal disease: (5) Liver transplant status: Plan Assessment and Plan: A 38F with PMH of HTN, history of Alcoholic liver failure (s/p transplant at [id number]), 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 Sepsis secondary to C. Diff Infection Diarrhea resolved. Remains afebrile, hemodynamically stable, leukocytosis still present but trend is lowering. CT abd shows diffuse wall thickening within the colon with accompanying pericolonic fat stranding. This is consistent with colitis which may be infectious or inflammatory. Also considered PD catheter malfunction as source of sepsis, but blood culture as well as catheter tip culture is negative She was started empirically on broad spectrum IV antibiotics with Invanz (PCN allergy) and Vancomycin IV initially. C.diff came back positive which explained her leukocytosis. Given no sign of other infection and negative blood Cx broad spectrum IV was discontinued -Completed vancomycin PO x10 days. Acute on Chronic Anemia Chronic Anemia of CKD Hemoglobin improved and has been stable. No signs of bleeding at this time. no overt bleeding. she follows up for anemia with [facility] [place]. GI evaluated the patient and advised that her anemia is due to ESRD, with no endoscopic evaluation advised at this time due to lack of evidence of signs of overt bleeding. -Patient has received 2 units packed red blood cells since presentation -Monitor CBC closely Folate Deficiency Folate low 5.7 she was started on supplement ESRD PD cath dysfunction Severe Hyponatremia -improved Nephrology was consulted for the management of dialysis and ESRD complication, recommendation appreciated. PD cath removed by General surgery and temporary R groin HD catheter placed by pulmonary -now removed -Underwent tunneled HD cath, HD schedule per nephrology Liver Transplant She had liver transplant at [facility] back in 2014 due to Alcoholic liver failure. family said she may be she has not been taking her antirejection mediation. there is a high possibility of noncompliance. -Continue home anti-rejection medications Acute Metabolic Encephalopathy Mental status now at baseline. Likely multifactorial in the setting of possibleuremic encephalopathy, alcohol withdrawal, acute C. difficile infection. Ammonia level also elevated, but low suspicion that etiology is hepatic in origin. -Neurology recommendation appreciated; further workup per their recommendations -Treat C. difficile infection, maintain on HD schedule, hold on lactulose administration Elevated Troponin In the setting of poor renal clearance, sepsis from C. difficile. Patient has no cardiorespiratory complaints. No EKG changes present Recent right traumatic proximal humerus fracture There is edema in her R arm and with some ecchymosis. there is no warmth, tenderness (lower form the shoulder) or erythema. Patient does continue to complain of pain. Seen on x-ray at [facility] on 09/01/2023. Orthopedic consult for possiblelate complication of humerus fracture. Discussed surgical versus conservative options with family. surgical intervention was not recommended, and she is to follow as outpatient. Due to weak pulse in her right arm PVR UE was done which was Normal -Nonweightbearing right upper extremity and sling for comfort -Pain control with morphine, Percocet-will be cautious with these medications given patient's liver and kidney issues Probable EtOH Abuse Disorder/withdrawal There is conflicting information about her drinking habit. The family doesn't know if she drinks at home. the patient has vague answers about the last time she had a drink. she reported to RN on admission that she still drinks. Blood alcohol concentration is not detected on admission -Can discontinue CIWA protocol given that patient is likely out of the withdrawal window and mental status has improved -Multivitamin/folic acid/Thiamine -Symptom control and supportive care Sore Throat/Oral Candidiasis There was oral white Mucosal Lesions on her tongue which is slowly getting better local antifungal treatment w/nystatin Hypothyroidism TSH wnl; Synthroid was continued Poor Appetite I encouraged oral intake diet supplements dietitian input noted Rhabdomyolysis - resolved She was given IVF. CPK improved to normal Physical Deconditioning Secondary to multiple acute medical issues. Will need to increase work with PT/OT this week -Plan for SNF on discharge Chronic diseases: Unless mentioned Above, Essential home medications have been continued. DVT Px: SCDs Disposition: SNF on discharge, increased work with PT/OT Patient remained stable for discharge once arrangements are made I was notified patient got accepted to SNF and approved but has dialysis today and need set up for outpatient dialysis schedule so she will remain in house since has dialysis tomorrow. Documented By: Beba Ng MD 09/26/23 13 18 Signed By: <Electronically signed by Beba Ng MD> 09/26/23 1320 [facility] Work Phone: [phone]) 614-860505-03-2024 Progress note Author Pedro Floyd [facility] September 26, 2023 10:25am Note Date/Time September 26, 2023 10:25a m [facility] [address] [place] [address] Nephrology Progress Note Signed Patient: Winnie Cai MR#: [id number] : 1985 Acct:[id number] Age/Sex: 38 / F Adm Date: 4 Loc: Room: [address] [place] [address] Type: ADM IN Attending Dr: Beba Ng MD Copies to: ~ Date of Service: 09/26/2023 Subjective Subjective Narrative: Ms. 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 PD was started at [place] however he moved to [place] closer to her home. She has a history of liver transplant due to alcoholic liver cirrhosis at [facility] 2014. She did require hemodialysis in the perioperative period and later on was transitioned to PD. Patient has been noncompliant with peritoneal dialysis and missing multiple treatments at home per her records. Patient was brought to the ER on 09/07 as she has been significantly weak and dehydrated. Patient sustained a fall after she tripped last week and went to [facility] ER but she was found to have fracture of the right head of humerus. Right hand currently in sling dressing she is supposed to see orthopedics as outpatient. Patient was not able to do peritoneal dialysis at home since she has limited mobility of the right arm. Patient reported that she has not been eating or drinking over the last few days. Evaluation in the ER showed large hematoma around the shoulder and the chest. She was tachycardic 111 however blood pressure 115/73. No fever or chills. WBCs count was found to be [id number]. Patient was started empirically on vancomycin and Zosyn after 2 sets ofblood culture was obtained. Hemoglobin was low 7.3 compared to 10 g/dL on . She has mildly elevated INR 1.4 despite she is not on any blood thinners medication. There is a report by nursing staff that patient still drinking vodka however it does not confirm. Ethyl alcohol level on admission was less than 10 mg/dL. Interval history: Patient was seen and examined at bedside. Denies any chest pain palpation coughnausea vomiting or shortness of breath Exam Physical Exam Vital Signs: Temp Pulse Resp BP Pulse Ox O2 Del Method O2 Flow Rate 98.3 F 75 16 108/65 98 Room Air 6 09/26/23 08:00 09/26/23 08:00 09/26/23 08:00 09/26/23 08:00 09/26/23 08:00 09/26/23 08:00 09/08/23 19:23 Narrative: General: Appears comfortable and not in distress Heart: S1-S2, no rub Lung: Bilateral air entry, no wheezing or crackles Abdomen: Soft, positive bowel sounds Extremities: No edema, no cyanosis Head: Atraumatic, normocephalic Ear: No gross hearing Deficit or external ear redness Eyes: No pallor or redness Neck: No JVD or visible mass Skin: No rashes , warm to touch 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,Alert, following simple command Psychiatric: Cooperative, normal mood and affect Objective Intake and Output I&O: Intake & Output 09/23/23 09/24/23 09/25/23 09/26/23 23:59 23:59 23:59 23:59 Intake Total 991 / 991 750 / 750 1510 / 1510 150 / 150 Output Total 1502 / 1502 485 / 485 Balance -511 / -511 750 / 750 1025 / 1025 150 / 150 Weight 63.6 kg 62.4 kg 62 kg 63 kg Meds and Allergies Meds: Active Medications Calcium Acetate (Calcium Acetate 667 Mg Capsule) 667 mg PO TID.WITH.MEALS SERENA Stop: 09/08/24 11:59 Last Admin: 09/26/23 08:37 Dose: 667 mg Cyclosporine (Cyclosporine Modified 25 Mg Capsule) 75 mg PO DAILY SERENA Stop: 09/08/24 11:29 Last Admin: 09/26/23 08:39 Dose: 75 mg Darbepoetin Mariano (Darbepoetin Mariano In Polysorbat 60 Mcg/Ml Vial) 60 mcg IV-PUSHTh@0900 [facility]; Protocol Stop: 09/10/24 09:29 Last Admin: 09/25/23 10:35 Dose: 60 mcg Dextrose (Dextrose 50% In Water 25 Gm/50 Ml Syringe) 0 gm IV-PUSH PRN PRN PRN Reason: Hypoglycemia Stop: 09/07/24 17:35 Last Admin: 09/08/23 18:00 Dose: 25 gm Escitalopram Oxalate (Escitalopram 5 Mg Tablet) 15 mg PO DAILY [facility] Stop: 09/08/24 11:29 Last Admin: 09/26/23 08:38 Dose: 15 mg Ferric Sodium Gluconate Complex (Sodium Ferric Gluconat/Sucrose 62.5 Mg/5 Ml Vial) 62.5 mg IV-PUSH Th@0900 [facility] Stop: 09/10/24 09:29 Last Admin: 09/25/23 10:35 Dose: 62.5 mg Folic Acid (Folic Acid 1 Mg Tablet) 5 mg PO DAILY [facility] Stop: 09/11/24 08:59 Last Admin: 09/26/23 08:38 Dose: 5 mg Heparin Sodium (Porcine) (Heparin 10,000 Unit/10 Ml Vial) 4,100 unit IV PRN PRN PRN Reason: Dialysis Stop: 09/15/24 09:17 Last Admin: 09/25/23 10:35 Dose: 4,100 unit Heparin Sodium (Porcine) (Heparin 10,000 Unit/10 Ml Vial) 2,000 unit IV PRN PRN PRN Reason: Dialysis Stop: 09/17/24 12:49 Last Admin: 09/25/23 10:36 Dose: 2,000 unit Heparin Sodium (Porcine) (Heparin 10,000 Unit/10 Ml Vial) 1,000 unit IV PRN PRN PRN Reason: Dialysis Stop: 09/24/24 10:47 Last Admin: 09/25/23 11:02 Dose: 1,000 unit Sodium Chloride (0.9% Sodium Chloride 1,000 Ml) 1,000 mls @ 0 mls/hr MISCELLANE.Q0M PRN PRN Reason: Dialysis Stop: 09/08/24 09:07 Last Infusion: 09/25/23 10:38 Dose: Infused Levothyroxine Sodium (Levothyroxine 75 Mcg Tablet) 75 mcg PO DAILY@0630 [facility] Stop: 09/08/24 10:59 Last Admin: 09/26/23 06:05 Dose: 75 mcg Lidocaine HCl (Lidocaine 1% 50 Ml Vial) 0.1 ml INTRADERMA PREOP PRN PRN Reason: Venipuncture x 1 Dose Lidocaine HCl (Lidocaine 2% Viscous 100 Ml Bottle) 15 ml MUCOUS MEM Q4H PRN PRN Reason: Sore Throat Stop: 09/22/24 14:31 Magnesium Oxide (Magnesium Oxide 400 Mg Tablet) 200 mg PO DAILY [facility] Stop: 09/09/24 08:59 Last Admin: 09/26/23 08:38 Dose: 200 mg Metoprolol Succinate (Metoprolol Succinate 50 Mg Tab.Er.24h) 50 mg PO QHS [facility] Stop: 09/07/24 21:59 Last Admin: 09/25/23 21:05 Dose: Not Given Morphine Sulfate (Morphine Sulfate 2 Mg/Ml Vial) 1 mg IV-PUSH Q4H PRN PRN Reason: Pain Scale 7 - 10 Last Admin: 09/18/23 21:44 Dose: 1 mg Multi-Ingredient Mouthwash/Gargle (Magic Mouthwash With Lidocaine) 5 ml PO [id number] PRN Reason: Mouth Pain Stop: 09/15/24 21:59 Last Admin: 09/24/23 18:38 Dose: 5 ml Multivitamins (Multivitamin 1 Tab Tablet) 1 tab PO DAILY [facility] Stop: 09/08/24 08:59 Last Admin: 09/26/23 08:37 Dose: 1 tab Mycophenolate Sodium (Mycophenolate Sodium 180 Mg Tablet.Dr *Nf*) 720 mg PO DAILY [facility] Stop: 09/08/24 11:29 Last Admin: 09/26/23 08:40 Dose: 720 mg Nicotine (Nicotine Patch 21 Mg/24hr 1 Each Patch.Td24) 1 each TRANSDERML DAILY PRN PRN Reason: Nicotine Cravings Stop: 10/27/23 09:01 Last Admin: 09/24/23 08:18 Dose: 1 each Nystatin (Nystatin Susp 500,000 Unit/5 Ml Udc) 400,000 unit PO TID [facility] Stop: 09/15/24 21:59 Last Admin: 09/26/23 08:39 Dose: 400,000 unit Ondansetron HCl (Ondansetron 4 Mg/2 Ml Vial) 4 mg IV-PUSH Q6H PRN PRN Reason: Nausea And Vomiting Stop: 09/07/24 15:48 Last Admin: 09/11/23 14:02 Dose: 4 mg Oxycodone/Acetaminophen (Oxycodone/Acetaminophen 5-325 Mg Tablet) 1 tab PO [id number] PRN Reason: Pain Last Admin: 09/26/23 00:00 Dose: 1 tab Pantoprazole Sodium (Pantoprazole 40 Mg Tablet.Dr) 40 mg PO DAILY SERENA Stop: 09/11/24 08:59 Last Admin: 09/26/23 08:39 Dose: 40 mg Potassium Chloride (Potassium Chloride Er 20 Meq Tab.Er.Prt) 40 meq PO DAILY PRN PRN Reason: Hypokalemia Stop: 09/07/24 15:48 Last Admin: 09/20/23 13:51 Dose: 40 meq Sodium Chloride (Sodium Chloride 0.9 % 10 Ml Syringe) 0 ml IV-PUSH PRN PRN PRN Reason: Flush Stop: 09/07/24 09:51 Last Admin: 09/23/23 09:42 Dose: 40 ml Sodium Chloride (Sodium Chloride 0.9 % 10 Ml Vial.Pf) 0 ml IV PRN PRN PRN Reason: ATIVAN DILUTION Stop: 09/07/24 19:07 Sodium Chloride (Sodium Chloride 0.9 % 10 Ml Syringe) 0 ml IV-PUSH PRN PRN PRN Reason: Flush Stop: 09/08/24 09:07 Last Admin: 09/25/23 10:36 Dose: 40 ml Thiamine HCl (Thiamine 100 Mg Tablet) 100 mg PO BID SERENA Stop: 09/07/24 20:59 Last Admin: 09/26/23 08:38 Dose: 100 mg Tramadol HCl (Tramadol 50 Mg Tablet) 25 mg PO Q12H PRN PRN Reason: Pain Stop: 03/23/24 09:38 Last Admin: 09/26/23 08:37 Dose: 25 mg Allergies fish oil Allergy (Unknown, Verified 09/17/23 15:25) Unknown Reaction Penicillins Allergy (Unknown, Verified 09/17/23 15:25) Unknown Reaction Sulfa (Sulfonamide Antibiotics) Allergy (Verified 09/17/23 15:25) Hives sulfamethoxazole [From Bactrim] Allergy (Verified 09/17/23 15:25) Hives trimethoprim [From Bactrim] Allergy (Verified 09/17/23 15:25) Hives Results - Nephrology Labs 09/24/23 04:21 09/25/23 09:30 Labs: 09/25/23 09:30 BUN 15 Creatinine 5.32 H D Phosphorus 3.3 Albumin 2.0 L Radiology Impressions Impressions - last 24 hours: Any impression(s) listed above is documentation that was entered by the reading physician into a diagnostic report(s) for Winnie Cai. I have reviewed the report(s) and am incorporating any findings in the treatment plan of this patient where applicable. A&P - Nephrology Assessment/Plan (1) ESRD (end stage renal disease) on dialysis: Plan: Patient has ESRD related to combination of hepatorenal syndrome and cyclosporine toxicity. Patient had REED at the time of liver transplant as well and she did require short period of hemodialysis. Patient is back on dialysis since 05/04/2021. She was switched to IHD from PD on 09/07 after she fell and fractured her right arm. (2) History of peritoneal dialysis: Plan: PD catheter was removed on 09/07 as it was broken and not usable. Patient also not able to do PD related to right arm fracture. PD catheter tip culture is negative (3) History of shoulder fracture: Plan: Patient has right humerus fracture s/p fall after she tripped at home. (4) Anemia of renal disease: Assessment/Problem Details: Hemoglobin below the goal. She was transfused 2 unit of PRBC. (5) Liver transplant status: Plan: Patient status post liver transplant at [facility] on October 2014. She has mild elevated AST however ALT and bilirubin are normal. Plan * No need for dialysis today. Next dialysis will be tomorrow as per schedule. * Continue Aranesp 60 mcg and Ferrlecit 62.5 mg weekly with dialysis. She has adequate iron stores. * Patient on oral vancomycin for C. difficile colitis. * Continue current liver transplant medications including mycophenolate 720 mg p.o. daily and cyclosporine 75 mg p.o. daily. * Monitor daily intake and output, renal panel and CBC to adjust medications, dialysis prescription and blood transfusion for hemoglobin below 7 g/dL Documented By: Pedro Floyd MD 09/26/23 1022 Signed By: <Electronically signed by Pedro Floyd MD> 09/26/23 1025 [facility] Work Phone: 1(771) 551-274905-02-2024 Progress note Author Beba Ng [facility] September 25, 2023 3:30pm Note Date/Time September 25, 2023 3:30pm [facility] [address] [place] [address] Hospitalist Progress Note Signed Patient: Winnie Cai MR#: [id number] : 1985 Acct:[id number] Age/Sex: 38 / F Adm Date: 4 Loc: Room: [address] [place] [address] Type: ADM IN Attending Dr: Beba Ng MD Copies to: ~ Date of Service: 09/25/2023 Subjective Subjective Narrative: No acute events noted overnight. Remained hemodynamically stable. got dialysis session today per schedule. Still awaiting on placement. Exam Physical Exam Vital Signs: Temp Pulse Resp BP Pulse Ox O2 Del Method O2 Flow Rate 98 F 82 16 101/65 97 Room Air 6 09/25/23 12:55 09/25/23 12:55 09/25/23 12:55 09/25/23 12:55 09/25/23 12:00 09/25/23 12:00 09/08/23 19:23 Narrative: Constitutional: middle-aged WF, resting in bed in mild pain due to right upper extremity injury Cardiovascular: RRR, no M/R/G, normal S1 and S2, no JVD Respiratory: Lungs clear to auscultation bilaterally, no wheezes, rales or rhonchi GI: Soft, NTND, normoactive bowel sounds : Deferred Neuro: AAO x3, no focal deficits. CN III-XII grossly intact, Strength 5/5 throughout Extremities: No clubbing, cyanosis. RUE edematous, in sling on my assessment. Very limited range of motion secondary to pain. Psych: Patient calm, cooperative and conversant Objective Lab Results 09/24/23 04:21 09/25/23 09:30 Meds Allergies and Active Meds Allergies fish oil Allergy (Unknown, Verified 09/17/23 15:25) Unknown Reaction Penicillins Allergy (Unknown, Verified 09/17/23 15:25) Unknown Reaction Sulfa (Sulfonamide Antibiotics) Allergy (Verified 09/17/23 15:25) Hives sulfamethoxazole [From Bactrim] Allergy (Verified 09/17/23 15:25) Hives trimethoprim [From Bactrim] Allergy (Verified 09/17/23 15:25) Hives Active Meds: Active Medications Generic Name Dose Route Start Last Admin Trade Name Freq PRN Reason Stop Dose Admin Calcium Acetate 667 mg 09/09/23 12:00 09/25/23 13:15 Calcium Acetate 667 Mg Capsule PO 09/08/24 11:59 667 mg TID.WITH.MEALS SERENA Administration Cyclosporine 75 mg 09/09/23 11:30 09/25/23 13:17 Cyclosporine Modified 25 Mg Capsule PO 09/08/24 11:29 75 mg DAILY SERENA Administration Darbepoetin Mariano 60 mcg 09/11/23 09:30 09/25/23 10:35 Darbepoetin Mariano In Polysorbat 60 Mcg/Ml Vial IV-PUSH 09/10/24 09:29 60 mcg Th@0900 SERENA Administration Protocol Dextrose 0 gm 09/08/23 17:36 09/08/23 18:00 Dextrose 50% In Water 25 Gm/50 Ml Syringe IV-PUSH 09/07/24 17:35 25 gm PRN PRN Administration Hypoglycemia Escitalopram Oxalate 15 mg 09/09/23 11:30 09/25/23 13:15 Escitalopram 5 Mg Tablet PO 09/08/24 11:29 15 mg DAILY SERENA Administration Ferric Sodium Gluconate Complex 62.5 mg 09/11/23 09:30 09/25/23 10:35 Sodium Ferric Gluconat/Sucrose 62.5 Mg/5 Ml Vial IV-PUSH 09/10/24 09:29 62.5 mg Th@0900 SERENA Administration Folic Acid 5 mg 09/12/23 09:00 09/25/23 13:16 Folic Acid 1 Mg Tablet PO 09/11/24 08:59 5 mg DAILY SERENA Administration Heparin Sodium (Porcine) 4,100 unit 09/16/23 09:18 09/25/23 10:35 Heparin 10,000 Unit/10 Ml Vial IV 09/15/24 09:17 4,100 unit PRN PRN Administration Dialysis Heparin Sodium (Porcine) 2,000 unit 09/18/23 12:50 09/25/23 10:36 Heparin 10,000 Unit/10 Ml Vial IV 09/17/24 12:49 2,000 unit PRN PRN Administration Dialysis Heparin Sodium (Porcine) 1,000 unit 09/25/23 10:48 09/25/23 11:02 Heparin 10,000 Unit/10 Ml Vial IV 09/24/24 10:47 1,000 unit PRN PRN Administration Dialysis Sodium Chloride 1,000 mls @ 0 mls/hr 09/09/23 09:08 09/25/23 10:38 0.9% Sodium Chloride 1,000 Ml MISCELLANE 09/08/24 09:07 Infused .Q0M PRN Infusion Dialysis As Directed Levothyroxine Sodium 75 mcg 09/09/23 11:00 09/25/23 06:06 Levothyroxine 75 Mcg Tablet PO 09/08/24 10:59 75 mcg DAILY@0630 SERENA Administration Lidocaine HCl 0.1 ml 09/16/23 05:39 Lidocaine 1% 50 Ml Vial INTRADERMA PREOP PRN Venipuncture x 1 Dose Lidocaine HCl 15 ml 09/23/23 14:32 Lidocaine 2% Viscous 100 Ml Bottle MUCOUS MEM 09/22/24 14:31 Q4H PRN Sore Throat Magnesium Oxide 200 mg 09/10/23 09:00 09/25/23 13:16 Magnesium Oxide 400 Mg Tablet PO 09/09/24 08:59 200 mg DAILY SERENA Administration Metoprolol Succinate 50 mg 09/08/23 22:00 09/24/23 21:07 Metoprolol Succinate 50 Mg Tab.Er.24h PO 09/07/24 21:59 50 mg QHS SERENA Administration Morphine Sulfate 1 mg 09/12/23 19:31 09/18/23 21:44 Morphine Sulfate 2 Mg/Ml Vial IV-PUSH 1 mg Q4H PRN Administration Pain Scale 7 - 10 Multi-Ingredient Mouthwash/Gargle 5 ml 09/16/23 18:52 09/24/23 18:38 Magic Mouthwash With Lidocaine PO 09/15/24 21:59 5 ml Q4HR PRN Administration Mouth Pain Multivitamins 1 tab 09/09/23 09:00 09/25/23 13:16 Multivitamin 1 Tab Tablet PO 09/08/24 08:59 1 tab DAILY SERENA Administration Mycophenolate Sodium 720 mg 09/09/23 11:30 09/25/23 13:21 Mycophenolate Sodium 180 Mg Tablet. *Nf* PO 09/08/24 11:29 720 mg DAILY SERENA Administration Nicotine 1 each 09/15/23 15:09 09/24/23 08:18 Nicotine Patch 21 Mg/24hr 1 Each Patch.Td24 TRANSDERML 10/27/23 09:01 1 each DAILY PRN Administration Nicotine Cravings Nystatin 400,000 unit 09/16/23 22:00 09/25/23 13:18 Nystatin Susp 500,000 Unit/5 Ml Udc PO 09/15/24 21:59 400,000 unit TID SERENA Administration Ondansetron HCl 4 mg 09/08/23 15:49 09/11/23 14:02 Ondansetron 4 Mg/2 Ml Vial IV-PUSH 09/07/24 15:48 4 mg Q6H PRN Administration Nausea And Vomiting Oxycodone/Acetaminophen 1 tab 09/24/23 12:10 09/25/23 14:47 Oxycodone/Acetaminophen 5-325 Mg Tablet PO 1 tab Q8HR PRN Administration Pain Pantoprazole Sodium 40 mg 09/12/23 09:00 09/25/23 13:16 Pantoprazole 40 Mg Tablet. PO 09/11/24 08:59 40 mg DAILY SERENA Administration Potassium Chloride 40 meq 09/08/23 15:49 09/20/23 13:51 Potassium Chloride Er 20 Meq Tab.Er.Prt PO 09/07/24 15:48 40 meq DAILY PRN Administration Hypokalemia Sodium Chloride 0 ml 09/08/23 09:52 09/23/23 09:42 Sodium Chloride 0.9 % 10 Ml Syringe IV-PUSH 09/07/24 09:51 40 ml PRN PRN Administration Flush Sodium Chloride 0 ml 09/08/23 19:08 Sodium Chloride 0.9 % 10 Ml Vial.Pf IV 09/07/24 19:07 PRN PRN ATIVAN DILUTION Sodium Chloride 0 ml 09/09/23 09:08 09/25/23 10:36 Sodium Chloride 0.9 % 10 Ml Syringe IV-PUSH 09/08/24 09:07 40 ml PRN PRN Administration Flush Thiamine HCl 100 mg 09/08/23 21:00 09/25/23 13:16 Thiamine 100 Mg Tablet PO 09/07/24 20:59 100 mg BID SERENA Administration Tramadol HCl 25 mg 09/25/23 09:39 Tramadol 50 Mg Tablet PO 03/23/24 09:38 Q12H PRN Pain A&P - Hospitalist Assessment/Plan (1) Dehydration: (2) Rhabdomyolysis: (3) Anemia of renal disease: (4) Liver transplant status: (5) Peritoneal dialysis catheter mechanical complication: Plan Assessment and Plan: A 38F with PMH of HTN, history of Alcoholic liver failure (s/p transplant at [id number]), 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 Sepsis secondary to C. Diff Infection Diarrhea resolved. Remains afebrile, hemodynamically stable, leukocytosis still present but trend is lowering. CT abd shows diffuse wall thickening within the colon with accompanying pericolonic fat stranding. This is consistent with colitis which may be infectious or inflammatory. Also considered PD catheter malfunction as source of sepsis, but blood culture as well as catheter tip culture is negative She was started empirically on broad spectrum IV antibiotics with Invanz (PCN allergy) and Vancomycin IV initially. C.diff came back positive which explained her leukocytosis. Given no sign of other infection and negative blood Cx broad spectrum IV was discontinued -Completed vancomycin PO x10 days. Acute on Chronic Anemia Chronic Anemia of CKD Hemoglobin improved and has been stable. No signs of bleeding at this time. no overt bleeding. she follows up for anemia with [facility] Dm. GI evaluated the patient and advised that her anemia is due to ESRD, with no endoscopic evaluation advised at this time due to lack of evidence of signs of overt bleeding. -Patient has received 2 units packed red blood cells since presentation -Monitor CBC closely Folate Deficiency Folate low 5.7 she was started on supplement ESRD PD cath dysfunction Severe Hyponatremia -improved Nephrology was consulted for the management of dialysis and ESRD complication, recommendation appreciated. PD cath removed by General surgery and temporary R groin HD catheter placed by pulmonary -now removed -Underwent tunneled HD cath, HD schedule per nephrology Liver Transplant She had liver transplant at [facility] back in 2014 due to Alcoholic liver failure. family said she may be she has not been taking her antirejection mediation. there is a high possibility of noncompliance. -Continue home anti-rejection medications Acute Metabolic Encephalopathy Mental status now at baseline. Likely multifactorial in the setting of possibleuremic encephalopathy, alcohol withdrawal, acute C. difficile infection. Ammonia level also elevated, but low suspicion that etiology is hepatic in origin. -Neurology recommendation appreciated; further workup per their recommendations -Treat C. difficile infection, maintain on HD schedule, hold on lactulose administration Elevated Troponin In the setting of poor renal clearance, sepsis from C. difficile. Patient has no cardiorespiratory complaints. No EKG changes present Recent right traumatic proximal humerus fracture There is edema in her R arm and with some ecchymosis. there is no warmth, tenderness (lower form the shoulder) or erythema. Patient does continue to complain of pain. Seen on x-ray at [facility] on 09/01/2023. Orthopedic consult for possiblelate complication of humerus fracture. Discussed surgical versus conservative options with family. surgical intervention was not recommended, and she is to follow as outpatient. Due to weak pulse in her right arm PVR UE was done which was Normal -Nonweightbearing right upper extremity and sling for comfort -Pain control with morphine, Percocet-will be cautious with these medications given patient's liver and kidney issues Probable EtOH Abuse Disorder/withdrawal There is conflicting information about her drinking habit. The family doesn't know if she drinks at home. the patient has vague answers about the last time she had a drink. she reported to RN on admission that she still drinks. Blood alcohol concentration is not detected on admission -Can discontinue CIWA protocol given that patient is likely out of the withdrawal window and mental status has improved -Multivitamin/folic acid/Thiamine -Symptom control and supportive care Sore Throat/Oral Candidiasis There was oral white Mucosal Lesions on her tongue which is slowly getting better local antifungal treatment w/nystatin Hypothyroidism TSH wnl; Synthroid was continued Poor Appetite I encouraged oral intake diet supplements dietitian input noted Rhabdomyolysis - resolved She was given IVF. CPK improved to normal Physical Deconditioning Secondary to multiple acute medical issues. Will need to increase work with PT/OT this week -Plan for SNF on discharge Chronic diseases: Unless mentioned Above, Essential home medications have been continued. DVT Px: SCDs Disposition: SNF on discharge, increased work with PT/OT Patient remained stable for discharge once arrangements are made Documented By: Beba Ng MD 09/25/23 15 29 Signed By: <Electronically signed by Beba Ng MD> 09/25/23 1530 [facility] Work Phone: 1(268) 732-576105-02-2024 Progress note Author Pedro Floyd [facility] September 25, 2023 11:16am Note Date/Time September 25, 2023 11:16a m [facility] [address] [place] [address] Nephrology Progress Note Signed Patient: Winnie Cai MR#: [id number] : 1985 Acct:[id number] Age/Sex: 38 / F Adm Date: 4 Loc: 4 Room: [address] [place] [address] Type: ADM IN Attending Dr: Beba Ng MD Copies to: ~ Date of Service: 09/25/2023 Subjective Subjective Narrative: Ms. 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 PD was started at [place] however he moved to [place] closer to her home. She has a history of liver transplant due to alcoholic liver cirrhosis at [facility] 2014. She did require hemodialysis in the perioperative period and later on was transitioned to PD. Patient has been noncompliant with peritoneal dialysis and missing multiple treatments at home per her records. Patient was brought to the ER on 09/07 as she has been significantly weak and dehydrated. Patient sustained a fall after she tripped last week and went to [facility] ER but she was found to have fracture of the right head of humerus. Right hand currently in sling dressing she is supposed to see orthopedics as outpatient. Patient was not able to do peritoneal dialysis at home since she has limited mobility of the right arm. Patient reported that she has not been eating or drinking over the last few days. Evaluation in the ER showed large hematoma around the shoulder and the chest. She was tachycardic 111 however blood pressure 115/73. No fever or chills. WBCs count was found to be [id number]. Patient was started empirically on vancomycin and Zosyn after 2 sets ofblood culture was obtained. Hemoglobin was low 7.3 compared to 10 g/dL on . She has mildly elevated INR 1.4 despite she is not on any blood thinners medication. There is a report by nursing staff that patient still drinking vodka however it does not confirm. Ethyl alcohol level on admission was less than 10 mg/dL. Interval history: Patient was seen and examined at bedside during hemodialysis. Denies any chest pain palpation cough nausea vomiting or shortness of breath Exam Physical Exam Vital Signs: Temp Pulse Resp BP Pulse Ox O2 Del Method O2 Flow Rate 98 F 78 16 106/55 L 95 Room Air 6 09/25/23 09:09/25/23 11:09/25/23 09:09/25/23 11:09/25/23 09:09/25/23 09:09/08/23 19:23 Narrative: General: Appears comfortable and not in distress Heart: S1-S2, no rub Lung: Bilateral air entry, no wheezing or crackles Abdomen: Soft, positive bowel sounds Extremities: No edema, no cyanosis Head: Atraumatic, normocephalic Ear: No gross hearing Deficit or external ear redness Eyes: No pallor or redness Neck: No JVD or visible mass Skin: No rashes , warm to touch 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,Alert, following simple command Psychiatric: Cooperative, normal mood and affect Objective Intake and Output I&O: Intake & Output 09/22/23 09/23/23 09/24/23 09/25/23 23:59 23:59 23:59 23:59 Intake Total 900 / 900 991 / 991 750 / 750 650 / 650 Output Total 1502 / 1502 Balance 900 / 900 -511 / -511 750 / 750 650 / 650 Weight 65.1 kg 63.6 kg 62.4 kg 62 kg Meds and Allergies Meds: Active Medications Calcium Acetate (Calcium Acetate 667 Mg Capsule) 667 mg PO TID.WITH.MEALS SERENA Stop: 09/08/24 11:59 Last Admin: 09/25/23 09:25 Dose: Not Given Cyclosporine (Cyclosporine Modified 25 Mg Capsule) 75 mg PO DAILY SERENA Stop: 09/08/24 11:29 Last Admin: 09/24/23 08:18 Dose: 75 mg Darbepoetin Mariano (Darbepoetin Mariano In Polysorbat 60 Mcg/Ml Vial) 60 mcg IV-PUSHTh@0900 [facility]; Protocol Stop: 09/10/24 09:29 Last Admin: 09/25/23 10:35 Dose: 60 mcg Dextrose (Dextrose 50% In Water 25 Gm/50 Ml Syringe) 0 gm IV-PUSH PRN PRN PRN Reason: Hypoglycemia Stop: 09/07/24 17:35 Last Admin: 09/08/23 18:00 Dose: 25 gm Escitalopram Oxalate (Escitalopram 5 Mg Tablet) 15 mg PO DAILY [facility] Stop: 09/08/24 11:29 Last Admin: 09/24/23 08:18 Dose: 15 mg Ferric Sodium Gluconate Complex (Sodium Ferric Gluconat/Sucrose 62.5 Mg/5 Ml Vial) 62.5 mg IV-PUSH Th@0900 [facility] Stop: 09/10/24 09:29 Last Admin: 09/25/23 10:35 Dose: 62.5 mg Folic Acid (Folic Acid 1 Mg Tablet) 5 mg PO DAILY [facility] Stop: 09/11/24 08:59 Last Admin: 09/24/23 08:17 Dose: 5 mg Heparin Sodium (Porcine) (Heparin 10,000 Unit/10 Ml Vial) 4,100 unit IV PRN PRN PRN Reason: Dialysis Stop: 09/15/24 09:17 Last Admin: 09/25/23 10:35 Dose: 4,100 unit Heparin Sodium (Porcine) (Heparin 10,000 Unit/10 Ml Vial) 2,000 unit IV PRN PRN PRN Reason: Dialysis Stop: 09/17/24 12:49 Last Admin: 09/25/23 10:36 Dose: 2,000 unit Heparin Sodium (Porcine) (Heparin 10,000 Unit/10 Ml Vial) 1,000 unit IV PRN PRN PRN Reason: Dialysis Stop: 09/24/24 10:47 Last Admin: 09/25/23 11:02 Dose: 1,000 unit Sodium Chloride (0.9% Sodium Chloride 1,000 Ml) 1,000 mls @ 0 mls/hr MISCELLANE.Q0M PRN PRN Reason: Dialysis Stop: 09/08/24 09:07 Last Infusion: 09/25/23 10:38 Dose: Infused Levothyroxine Sodium (Levothyroxine 75 Mcg Tablet) 75 mcg PO DAILY@0630 [facility] Stop: 09/08/24 10:59 Last Admin: 09/25/23 06:06 Dose: 75 mcg Lidocaine HCl (Lidocaine 1% 50 Ml Vial) 0.1 ml INTRADERMA PREOP PRN PRN Reason: Venipuncture x 1 Dose Lidocaine HCl (Lidocaine 2% Viscous 100 Ml Bottle) 15 ml MUCOUS MEM Q4H PRN PRN Reason: Sore Throat Stop: 09/22/24 14:31 Magnesium Oxide (Magnesium Oxide 400 Mg Tablet) 200 mg PO DAILY [facility] Stop: 09/09/24 08:59 Last Admin: 09/24/23 08:18 Dose: 200 mg Metoprolol Succinate (Metoprolol Succinate 50 Mg Tab.Er.24h) 50 mg PO QHS [facility] Stop: 09/07/24 21:59 Last Admin: 09/24/23 21:07 Dose: 50 mg Morphine Sulfate (Morphine Sulfate 2 Mg/Ml Vial) 1 mg IV-PUSH Q4H PRN PRN Reason: Pain Scale 7 - 10 Last Admin: 09/18/23 21:44 Dose: 1 mg Multi-Ingredient Mouthwash/Gargle (Magic Mouthwash With Lidocaine) 5 ml PO [id number] PRN Reason: Mouth Pain Stop: 09/15/24 21:59 Last Admin: 09/24/23 18:38 Dose: 5 ml Multivitamins (Multivitamin 1 Tab Tablet) 1 tab PO DAILY [facility] Stop: 09/08/24 08:59 Last Admin: 09/24/23 08:17 Dose: 1 tab Mycophenolate Sodium (Mycophenolate Sodium 180 Mg Tablet. *Nf*) 720 mg PO DAILY [facility] Stop: 09/08/24 11:29 Last Admin: 09/24/23 08:18 Dose: 720 mg Nicotine (Nicotine Patch 21 Mg/24hr 1 Each Patch.Td24) 1 each TRANSDERML DAILY PRN PRN Reason: Nicotine Cravings Stop: 10/27/23 09:01 Last Admin: 09/24/23 08:18 Dose: 1 each Nystatin (Nystatin Susp 500,000 Unit/5 Ml Udc) 400,000 unit PO TID [facility] Stop: 09/15/24 21:59 Last Admin: 09/24/23 21:07 Dose: 400,000 unit Ondansetron HCl (Ondansetron 4 Mg/2 Ml Vial) 4 mg IV-PUSH Q6H PRN PRN Reason: Nausea And Vomiting Stop: 09/07/24 15:48 Last Admin: 09/11/23 14:02 Dose: 4 mg Oxycodone/Acetaminophen (Oxycodone/Acetaminophen 5-325 Mg Tablet) 1 tab PO [id number] PRN Reason: Pain Last Admin: 09/25/23 06:06 Dose: 1 tab Pantoprazole Sodium (Pantoprazole 40 Mg Tablet.Dr) 40 mg PO DAILY SERENA Stop: 09/11/24 08:59 Last Admin: 09/24/23 08:18 Dose: 40 mg Potassium Chloride (Potassium Chloride Er 20 Meq Tab.Er.Prt) 40 meq PO DAILY PRN PRN Reason: Hypokalemia Stop: 09/07/24 15:48 Last Admin: 09/20/23 13:51 Dose: 40 meq Sodium Chloride (Sodium Chloride 0.9 % 10 Ml Syringe) 0 ml IV-PUSH PRN PRN PRN Reason: Flush Stop: 09/07/24 09:51 Last Admin: 09/23/23 09:42 Dose: 40 ml Sodium Chloride (Sodium Chloride 0.9 % 10 Ml Vial.Pf) 0 ml IV PRN PRN PRN Reason: ATIVAN DILUTION Stop: 09/07/24 19:07 Sodium Chloride (Sodium Chloride 0.9 % 10 Ml Syringe) 0 ml IV-PUSH PRN PRN PRN Reason: Flush Stop: 09/08/24 09:07 Last Admin: 09/25/23 10:36 Dose: 40 ml Thiamine HCl (Thiamine 100 Mg Tablet) 100 mg PO BID SERENA Stop: 09/07/24 20:59 Last Admin: 09/24/23 21:07 Dose: 100 mg Tramadol HCl (Tramadol 50 Mg Tablet) 25 mg PO Q12H PRN PRN Reason: Pain Stop: 03/23/24 09:38 Allergies fish oil Allergy (Unknown, Verified 09/17/23 15:25) Unknown Reaction Penicillins Allergy (Unknown, Verified 09/17/23 15:25) Unknown Reaction Sulfa (Sulfonamide Antibiotics) Allergy (Verified 09/17/23 15:25) Hives sulfamethoxazole [From Bactrim] Allergy (Verified 09/17/23 15:25) Hives trimethoprim [From Bactrim] Allergy (Verified 04/24/24 15:25) Hives Results - Nephrology Labs 09/24/23 04:21 09/25/23 09:30 Labs: 09/25/23 09:30 BUN 15 Creatinine 5.32 H D Phosphorus 3.3 Albumin 2.0 L Radiology Impressions Impressions - last 24 hours: Any impression(s) listed above is documentation that was entered by the reading physician into a diagnostic report(s) for Winnie Warren Ayala. I have reviewed the report(s) and am incorporating any findings in the treatment plan of this patient where applicable. A&P - Nephrology Assessment/Plan (1) ESRD (end stage renal disease) on dialysis: Plan: Patient has ESRD related to combination of hepatorenal syndrome and cyclosporine toxicity. Patient had REED at the time of liver transplant as well and she did require short period of hemodialysis. Patient is back on dialysis since 05/04/2021. She was switched to IHD from PD on 09/07 after she fell and fractured her right arm. (2) History of peritoneal dialysis: Plan: * PD catheter was removed on 09/07 as it was broken and not usable. Patient also not able to do PD related to right arm fracture. * PD catheter tip culture is negative (3) History of shoulder fracture: Plan: Patient has right humerus fracture s/p fall after she tripped at home. (4) Anemia of renal disease: Assessment/Problem Details: Hemoglobin below the goal. She was transfused 1 unit of PRBC. (5) Liver transplant status: Plan: Patient status post liver transplant at [facility] on October 2014. She has mild elevated AST however ALT and bilirubin are normal. There is question that the patient still drinking vodka however is not confirmed. INR is elevated. Plan * Hemodialysis today as ordered. * Continue Aranesp 60 mcg and Ferrlecit 62.5 mg weekly with dialysis. She has adequate iron stores. * Patient on oral vancomycin for C. difficile colitis. * Continue current liver transplant medications including mycophenolate 720 mg p.o. daily and cyclosporine 75 mg p.o. daily. * Monitor daily intake and output, renal panel and CBC to adjust medications, dialysis prescription and blood transfusion for hemoglobin below 7 g/dL Documented By: Pedro Floyd MD 09/25/23 1115 Signed By: <Electronically signed by Pedro Floyd MD> 09/25/23 1116 [facility] Work Phone: [phone]) 794-505405-01-2024 Progress note Author Beba Ng [facility] September 24, 2023 2:24pm Note Date/Time September 24, 2023 2:22pm [facility] [address] [place], [place] [id number] Hospitalist Progress Note Signed Patient: Winnie Cai MR#: [id number] : 1985 Acct:[id number] Age/Sex: 38 / F Adm Date: 4 Loc: 4 Room: [address] [place] [address] Type: ADM IN Attending Dr: Beba Ng MD Copies to: ~ Date of Service: 09/24/2023 Subjective Subjective Narrative: No acute events noted overnight. Remained hemodynamically stable. Doing well so far. C/o some shaky hands at times. Oxy dose been reduced by nephro. Still awaiting on placement. Exam Physical Exam Vital Signs: Temp Pulse Resp BP Pulse Ox O2 Del Method O2 Flow Rate 98.2 F 85 16 108/66 98 Room Air 6 09/24/23 11:56 09/24/23 11:56 09/24/23 11:56 09/24/23 11:56 09/24/23 11:56 09/24/23 11:56 09/08/23 19:23 Narrative: Constitutional: middle-aged WF, resting in bed in mild pain due to right upper extremity injury Cardiovascular: RRR, no M/R/G, normal S1 and S2, no JVD Respiratory: Lungs clear to auscultation bilaterally, no wheezes, rales or rhonchi GI: Soft, NTND, normoactive bowel sounds : Deferred Neuro: AAO x3, no focal deficits. CN III-XII grossly intact, Strength 5/5 throughout Extremities: No clubbing, cyanosis. RUE edematous, in sling on my assessment. Very tender throughout the proximal portion of the right arm. Very limited range of motion secondary to pain. Psych: Patient calm, cooperative and conversant Objective Lab Results 09/24/23 04:21 09/24/23 04:21 Meds Allergies and Active Meds Allergies fish oil Allergy (Unknown, Verified 09/17/23 15:25) Unknown Reaction Penicillins Allergy (Unknown, Verified 09/17/23 15:25) Unknown Reaction Sulfa (Sulfonamide Antibiotics) Allergy (Verified 09/17/23 15:25) Hives sulfamethoxazole [From Bactrim] Allergy (Verified 09/17/23 15:25) Hives trimethoprim [From Bactrim] Allergy (Verified 09/17/23 15:25) Hives Active Meds: Active Medications Generic Name Dose Route Start Last Admin Trade Name Freq PRN Reason Stop Dose Admin Calcium Acetate 667 mg 09/09/23 12:00 09/24/23 11:58 Calcium Acetate 667 Mg Capsule PO 09/08/24 11:59 667 mg TID.WITH.MEALS SERENA Administration Cyclosporine 75 mg 09/09/23 11:30 09/24/23 08:18 Cyclosporine Modified 25 Mg Capsule PO 09/08/24 11:29 75 mg DAILY SERENA Administration Darbepoetin Mariano 60 mcg 09/11/23 09:30 09/18/23 10:12 Darbepoetin Mariano In Polysorbat 60 Mcg/Ml Vial IV-PUSH 09/10/24 09:29 60 mcg Th@0900 SERENA Administration Protocol Dextrose 0 gm 09/08/23 17:36 09/08/23 18:00 Dextrose 50% In Water 25 Gm/50 Ml Syringe IV-PUSH 09/07/24 17:35 25 gm PRN PRN Administration Hypoglycemia Escitalopram Oxalate 15 mg 09/09/23 11:30 09/24/23 08:18 Escitalopram 5 Mg Tablet PO 09/08/24 11:29 15 mg DAILY SERENA Administration Ferric Sodium Gluconate Complex 62.5 mg 09/11/23 09:30 09/18/23 10:13 Sodium Ferric Gluconat/Sucrose 62.5 Mg/5 Ml Vial IV-PUSH 09/10/24 09:29 62.5 mg Th@0900 SERENA Administration Folic Acid 5 mg 09/12/23 09:00 09/24/23 08:17 Folic Acid 1 Mg Tablet PO 09/11/24 08:59 5 mg DAILY SERENA Administration Heparin Sodium (Porcine) 4,100 unit 09/16/23 09:18 09/23/23 09:42 Heparin 10,000 Unit/10 Ml Vial IV 09/15/24 09:17 4,100 unit PRN PRN Administration Dialysis Heparin Sodium (Porcine) 2,000 unit 09/18/23 12:50 09/23/23 09:42 Heparin 10,000 Unit/10 Ml Vial IV 09/17/24 12:49 2,000 unit PRN PRN Administration Dialysis Sodium Chloride 1,000 mls @ 0 mls/hr 09/09/23 09:08 09/23/23 12:28 0.9% Sodium Chloride 1,000 Ml MISCELLANE 09/08/24 09:07 Infused .Q0M PRN Infusion Dialysis As Directed Levothyroxine Sodium 75 mcg 09/09/23 11:00 09/24/23 06:35 Levothyroxine 75 Mcg Tablet PO 09/08/24 10:59 75 mcg DAILY@0630 SERENA Administration Lidocaine HCl 0.1 ml 09/16/23 05:39 Lidocaine 1% 50 Ml Vial INTRADERMA PREOP PRN Venipuncture x 1 Dose Lidocaine HCl 15 ml 09/23/23 14:32 Lidocaine 2% Viscous 100 Ml Bottle MUCOUS MEM 09/22/24 14:31 Q4H PRN Sore Throat Magnesium Oxide 200 mg 09/10/23 09:00 09/24/23 08:18 Magnesium Oxide 400 Mg Tablet PO 09/09/24 08:59 200 mg DAILY SERENA Administration Metoprolol Succinate 50 mg 09/08/23 22:00 09/23/23 22:48 Metoprolol Succinate 50 Mg Tab.Er.24h PO 09/07/24 21:59 Not Given QHS SERENA Morphine Sulfate 1 mg 09/12/23 19:31 09/18/23 21:44 Morphine Sulfate 2 Mg/Ml Vial IV-PUSH 1 mg Q4H PRN Administration Pain Scale 7 - 10 Multi-Ingredient Mouthwash/Gargle 5 ml 09/16/23 18:52 09/24/23 12:03 Magic Mouthwash With Lidocaine PO 09/15/24 21:59 5 ml Q4HR PRN Administration Mouth Pain Multivitamins 1 tab 09/09/23 09:00 09/24/23 08:17 Multivitamin 1 Tab Tablet PO 09/08/24 08:59 1 tab DAILY SERENA Administration Mycophenolate Sodium 720 mg 09/09/23 11:30 09/24/23 08:18 Mycophenolate Sodium 180 Mg Tablet.Dr *Nf* PO 09/08/24 11:29 720 mg DAILY SERENA Administration Nicotine 1 each 09/15/23 15:09 09/24/23 08:18 Nicotine Patch 21 Mg/24hr 1 Each Patch.Td24 TRANSDERML 10/27/23 09:01 1 each DAILY PRN Administration Nicotine Cravings Nystatin 400,000 unit 09/16/23 22:00 09/24/23 08:17 Nystatin Susp 500,000 Unit/5 Ml Udc PO 09/15/24 21:59 400,000 unit TID SERENA Administration Ondansetron HCl 4 mg 09/08/23 15:49 09/11/23 14:02 Ondansetron 4 Mg/2 Ml Vial IV-PUSH 09/07/24 15:48 4 mg Q6H PRN Administration Nausea And Vomiting Oxycodone/Acetaminophen 1 tab 09/24/23 12:10 Oxycodone/Acetaminophen 5-325 Mg Tablet PO Q8HR PRN Pain Pantoprazole Sodium 40 mg 09/12/23 09:00 09/24/23 08:18 Pantoprazole 40 Mg Tablet. PO 09/11/24 08:59 40 mg DAILY SERENA Administration Potassium Chloride 40 meq 09/08/23 15:49 09/20/23 13:51 Potassium Chloride Er 20 Meq Tab.Er.Prt PO 09/07/24 15:48 40 meq DAILY PRN Administration Hypokalemia Sodium Chloride 0 ml 09/08/23 09:52 09/23/23 09:42 Sodium Chloride 0.9 % 10 Ml Syringe IV-PUSH 09/07/24 09:51 40 ml PRN PRN Administration Flush Sodium Chloride 0 ml 09/08/23 19:08 Sodium Chloride 0.9 % 10 Ml Vial.Pf IV 09/07/24 19:07 PRN PRN ATIVAN DILUTION Sodium Chloride 0 ml 09/09/23 09:08 09/20/23 09:43 Sodium Chloride 0.9 % 10 Ml Syringe IV-PUSH 09/08/24 09:07 40 ml PRN PRN Administration Flush Thiamine HCl 100 mg 09/08/23 21:00 09/24/23 08:19 Thiamine 100 Mg Tablet PO 09/07/24 20:59 100 mg BID SERENA Administration A&P - Hospitalist Assessment/Plan (1) Dehydration: (2) Rhabdomyolysis: (3) Anemia of renal disease: (4) Liver transplant status: (5) Peritoneal dialysis catheter mechanical complication: Plan Assessment and Plan: A 38F with PMH of HTN, history of Alcoholic liver failure (s/p transplant at [id number]), 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 Sepsis secondary to C. Diff Infection Diarrhea resolved. Remains afebrile, hemodynamically stable, leukocytosis still present but trend is lowering. CT abd shows diffuse wall thickening within the colon with accompanying pericolonic fat stranding. This is consistent with colitis which may be infectious or inflammatory. Also considered PD catheter malfunction as source of sepsis, but blood culture as well as catheter tip culture is negative She was started empirically on broad spectrum IV antibiotics with Invanz (PCN allergy) and Vancomycin IV initially. C.diff came back positive which explained her leukocytosis. Given no sign of other infection and negative blood Cx broad spectrum IV was discontinued -Completed vancomycin PO x10 days. Acute on Chronic Anemia Chronic Anemia of CKD Hemoglobin improved and has been stable. No signs of bleeding at this time. no overt bleeding. she follows up for anemia with [facility]. GI evaluated the patient and advised that her anemia is due to ESRD, with no endoscopic evaluation advised at this time due to lack of evidence of signs of overt bleeding. -Patient has received 2 units packed red blood cells since presentation -Monitor CBC closely Folate Deficiency Folate low 5.7 she was started on supplement ESRD PD cath dysfunction Severe Hyponatremia -improved Nephrology was consulted for the management of dialysis and ESRD complication, recommendation appreciated. PD cath removed by General surgery and temporary R groin HD catheter placed by pulmonary -now removed -Underwent tunneled HD cath, HD schedule per nephrology Liver Transplant She had liver transplant at [facility] back in 2014 due to Alcoholic liver failure. family said she may be she has not been taking her antirejection mediation. there is a high possibility of noncompliance. -Continue home anti-rejection medications Acute Metabolic Encephalopathy Mental status now at baseline. Likely multifactorial in the setting of possibleuremic encephalopathy, alcohol withdrawal, acute C. difficile infection. Ammonia level also elevated, but low suspicion that etiology is hepatic in origin. -Neurology recommendation appreciated; further workup per their recommendations -Treat C. difficile infection, maintain on HD schedule, hold on lactulose administration Elevated Troponin In the setting of poor renal clearance, sepsis from C. difficile. Patient has no cardiorespiratory complaints. No EKG changes present Recent right traumatic proximal humerus fracture There is edema in her R arm and with some ecchymosis. there is no warmth, tenderness (lower form the shoulder) or erythema. Patient does continue to complain of pain. Seen on x-ray at [facility] on 09/01/2023. Orthopedic consult for possiblelate complication of humerus fracture. Discussed surgical versus conservative options with family. surgical intervention was not recommended, and she is to follow as outpatient. Due to weak pulse in her right arm PVR UE was done which was Normal -Nonweightbearing right upper extremity and sling for comfort -Pain control with morphine, Percocet-will be cautious with these medications given patient's liver and kidney issues Probable EtOH Abuse Disorder/withdrawal There is conflicting information about her drinking habit. The family doesn't know if she drinks at home. the patient has vague answers about the last time she had a drink. she reported to RN on admission that she still drinks. Blood alcohol concentration is not detected on admission -Can discontinue CIWA protocol given that patient is likely out of the withdrawal window and mental status has improved -Multivitamin/folic acid/Thiamine -Symptom control and supportive care Sore Throat/Oral Candidiasis There was oral white Mucosal Lesions on her tongue which is slowly getting better local antifungal treatment w/nystatin Hypothyroidism TSH wnl; Synthroid was continued Poor Appetite I encouraged oral intake diet supplements dietitian input noted Rhabdomyolysis - resolved She was given IVF. CPK improved to normal Physical Deconditioning Secondary to multiple acute medical issues. Will need to increase work with PT/OT this week -Plan for SNF on discharge Chronic diseases: Unless mentioned Above, Essential home medications have been continued. DVT Px: SCDs Disposition: SNF on discharge, increased work with PT/OT Patient remained stable for discharge once arrangements are made Documented By: Beba Ng MD 09/24/23 14 21 Signed By: <Electronically signed by Beba Ng MD> 09/24/23 3121 [facility] Work Phone: 1(725) 410-624405-01-2024 Progress note Author Pedro Floyd [facility] September 24, 2023 12:09pm Note Date/Time September 24, 2023 12:02p [facility] ENTER [address] [place] [address] Nephrology Progress Note Signed Patient: Winnie Cai MR#: [id number] : 1985 Acct:[id number] Age/Sex: 38 / F Adm Date: 4 Loc: 4 Room: [address] [place] [address] Type: ADM IN Attending Dr: Beba Ng MD Copies to: ~ Date of Service: 09/24/2023 Subjective Subjective Narrative: Ms. 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 PD was started at [place] however he moved to [place] closer to her home. She has a history of liver transplant due to alcoholic liver cirrhosis at [facility] 2014. She did require hemodialysis in the perioperative period and later on was transitioned to PD. Patient has been noncompliant with peritoneal dialysis and missing multiple treatments at home per her records. Patient was brought to the ER on 09/07 as she has been significantly weak and dehydrated. Patient sustained a fall after she tripped last week and went to [facility] ER but she was found to have fracture of the right head of humerus. Right hand currently in sling dressing she is supposed to see orthopedics as outpatient. Patient was not able to do peritoneal dialysis at home since she has limited mobility of the right arm. Patient reported that she has not been eating or drinking over the last few days. Evaluation in the ER showed large hematoma around the shoulder and the chest. She was tachycardic 111 however blood pressure 115/73. No fever or chills. WBCs count was found to be [id number]. Patient was started empirically on vancomycin and Zosyn after 2 sets ofblood culture was obtained. Hemoglobin was low 7.3 compared to 10 g/dL on . She has mildly elevated INR 1.4 despite she is not on any blood thinners medication. There is a report by nursing staff that patient still drinking vodka however it does not confirm. Ethyl alcohol level on admission was less than 10 mg/dL. Interval history: Patient was seen and examined at bedside. She reported to have involuntary jerking movements. Denies any chest pain palpation cough nausea vomiting or shortness of breath Exam Physical Exam Vital Signs: Temp Pulse Resp BP Pulse Ox O2 Del Method O2 Flow Rate 98.2 F 85 16 108/66 98 Room Air 6 09/24/23 11:56 09/24/23 11:56 09/24/23 11:56 09/24/23 11:56 09/24/23 11:56 09/24/23 11:56 09/08/23 19:23 Narrative: General: Appears comfortable and not in distress Heart: S1-S2, no rub Lung: Bilateral air entry, no wheezing or crackles Abdomen: Soft, positive bowel sounds Extremities: No edema, no cyanosis Head: Atraumatic, normocephalic Ear: No gross hearing Deficit or external ear redness Eyes: No pallor or redness Neck: No JVD or visible mass Skin: No rashes , warm to touch 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,Alert, following simple command Psychiatric: Cooperative, normal mood and affect Objective Intake and Output I&O: Intake & Output 09/21/23 09/22/23 09/23/23 09/24/23 23:59 23:59 23:59 23:59 Intake Total 1040 / 1040 900 / 900 991 / 991 100 / 100 Output Total 1502 / 1502 Balance 1040 / 1040 900 / 900 -511 / -511 100 / 100 Weight 64.9 kg 65.1 kg 63.6 kg 62.4 kg Meds and Allergies Meds: Active Medications Calcium Acetate (Calcium Acetate 667 Mg Capsule) 667 mg PO TID.WITH.MEALS [facility] Stop: 09/08/24 11:59 Last Admin: 09/24/23 11:58 Dose: 667 mg Cyclosporine (Cyclosporine Modified 25 Mg Capsule) 75 mg PO DAILY [facility] Stop: 09/08/24 11:29 Last Admin: 09/24/23 08:18 Dose: 75 mg Darbepoetin Mariano (Darbepoetin Mariano In Polysorbat 60 Mcg/Ml Vial) 60 mcg IV-PUSHTh@0900 [facility]; Protocol Stop: 09/10/24 09:29 Last Admin: 09/18/23 10:12 Dose: 60 mcg Dextrose (Dextrose 50% In Water 25 Gm/50 Ml Syringe) 0 gm IV-PUSH PRN PRN PRN Reason: Hypoglycemia Stop: 09/07/24 17:35 Last Admin: 09/08/23 18:00 Dose: 25 gm Escitalopram Oxalate (Escitalopram 5 Mg Tablet) 15 mg PO DAILY [facility] Stop: 09/08/24 11:29 Last Admin: 09/24/23 08:18 Dose: 15 mg Ferric Sodium Gluconate Complex (Sodium Ferric Gluconat/Sucrose 62.5 Mg/5 Ml Vial) 62.5 mg IV-PUSH Th@0900 [facility] Stop: 09/10/24 09:29 Last Admin: 09/18/23 10:13 Dose: 62.5 mg Folic Acid (Folic Acid 1 Mg Tablet) 5 mg PO DAILY [facility] Stop: 09/11/24 08:59 Last Admin: 09/24/23 08:17 Dose: 5 mg Heparin Sodium (Porcine) (Heparin 10,000 Unit/10 Ml Vial) 4,100 unit IV PRN PRN PRN Reason: Dialysis Stop: 09/15/24 09:17 Last Admin: 09/23/23 09:42 Dose: 4,100 unit Heparin Sodium (Porcine) (Heparin 10,000 Unit/10 Ml Vial) 2,000 unit IV PRN PRN PRN Reason: Dialysis Stop: 09/17/24 12:49 Last Admin: 09/23/23 09:42 Dose: 2,000 unit Sodium Chloride (0.9% Sodium Chloride 1,000 Ml) 1,000 mls @ 0 mls/hr MISCELLANE.Q0M PRN PRN Reason: Dialysis Stop: 09/08/24 09:07 Last Infusion: 09/23/23 12:28 Dose: Infused Levothyroxine Sodium (Levothyroxine 75 Mcg Tablet) 75 mcg PO DAILY@0630 [facility] Stop: 09/08/24 10:59 Last Admin: 09/24/23 06:35 Dose: 75 mcg Lidocaine HCl (Lidocaine 1% 50 Ml Vial) 0.1 ml INTRADERMA PREOP PRN PRN Reason: Venipuncture x 1 Dose Lidocaine HCl (Lidocaine 2% Viscous 100 Ml Bottle) 15 ml MUCOUS MEM Q4H PRN PRN Reason: Sore Throat Stop: 09/22/24 14:31 Magnesium Oxide (Magnesium Oxide 400 Mg Tablet) 200 mg PO DAILY [facility] Stop: 09/09/24 08:59 Last Admin: 09/24/23 08:18 Dose: 200 mg Metoprolol Succinate (Metoprolol Succinate 50 Mg Tab.Er.24h) 50 mg PO QHS [facility] Stop: 09/07/24 21:59 Last Admin: 09/23/23 22:48 Dose: Not Given Morphine Sulfate (Morphine Sulfate 2 Mg/Ml Vial) 1 mg IV-PUSH Q4H PRN PRN Reason: Pain Scale 7 - 10 Last Admin: 09/18/23 21:44 Dose: 1 mg Multi-Ingredient Mouthwash/Gargle (Magic Mouthwash With Lidocaine) 5 ml PO [id number] PRN Reason: Mouth Pain Stop: 09/15/24 21:59 Last Admin: 09/24/23 08:19 Dose: 5 ml Multivitamins (Multivitamin 1 Tab Tablet) 1 tab PO DAILY [facility] Stop: 09/08/24 08:59 Last Admin: 09/24/23 08:17 Dose: 1 tab Mycophenolate Sodium (Mycophenolate Sodium 180 Mg Tablet. *Nf*) 720 mg PO DAILY [facility] Stop: 09/08/24 11:29 Last Admin: 09/24/23 08:18 Dose: 720 mg Nicotine (Nicotine Patch 21 Mg/24hr 1 Each Patch.Td24) 1 each TRANSDERML DAILY PRN PRN Reason: Nicotine Cravings Stop: 10/27/23 09:01 Last Admin: 09/24/23 08:18 Dose: 1 each Nystatin (Nystatin Susp 500,000 Unit/5 Ml Udc) 400,000 unit PO TID [facility] Stop: 09/15/24 21:59 Last Admin: 09/24/23 08:17 Dose: 400,000 unit Ondansetron HCl (Ondansetron 4 Mg/2 Ml Vial) 4 mg IV-PUSH Q6H PRN PRN Reason: Nausea And Vomiting Stop: 09/07/24 15:48 Last Admin: 09/11/23 14:02 Dose: 4 mg Oxycodone/Acetaminophen (Oxycodone/Acetaminophen 5-325 Mg Tablet) 1 tab PO Q4H PRN PRN Reason: Pain Last Admin: 09/24/23 11:58 Dose: 1 tab Pantoprazole Sodium (Pantoprazole 40 Mg Tablet.) 40 mg PO DAILY [facility] Stop: 09/11/24 08:59 Last Admin: 09/24/23 08:18 Dose: 40 mg Potassium Chloride (Potassium Chloride Er 20 Meq Tab.Er.Prt) 40 meq PO DAILY PRN PRN Reason: Hypokalemia Stop: 09/07/24 15:48 Last Admin: 09/20/23 13:51 Dose: 40 meq Sodium Chloride (Sodium Chloride 0.9 % 10 Ml Syringe) 0 ml IV-PUSH PRN PRN PRN Reason: Flush Stop: 09/07/24 09:51 Last Admin: 09/23/23 09:42 Dose: 40 ml Sodium Chloride (Sodium Chloride 0.9 % 10 Ml Vial.Pf) 0 ml IV PRN PRN PRN Reason: ATIVAN DILUTION Stop: 09/07/24 19:07 Sodium Chloride (Sodium Chloride 0.9 % 10 Ml Syringe) 0 ml IV-PUSH PRN PRN PRN Reason: Flush Stop: 09/08/24 09:07 Last Admin: 09/20/23 09:43 Dose: 40 ml Thiamine HCl (Thiamine 100 Mg Tablet) 100 mg PO BID [facility] Stop: 09/07/24 20:59 Last Admin: 09/24/23 08:19 Dose: 100 mg Allergies fish oil Allergy (Unknown, Verified 09/17/23 15:25) Unknown Reaction Penicillins Allergy (Unknown, Verified 09/17/23 15:25) Unknown Reaction Sulfa (Sulfonamide Antibiotics) Allergy (Verified 09/17/23 15:25) Hives sulfamethoxazole [From Bactrim] Allergy (Verified 09/17/23 15:25) Hives trimethoprim [From Bactrim] Allergy (Verified 09/17/23 15:25) Hives Results - Nephrology Labs 09/24/23 04:21 09/24/23 04:21 Labs: 09/24/23 04:21 BUN 7 Creatinine 3.94 H D Albumin 2.1 L Radiology Impressions Impressions - last 24 hours: Any impression(s) listed above is documentation that was entered by the reading physician into a diagnostic report(s) for Winnie Cai. I have reviewed the report(s) and am incorporating any findings in the treatment plan of this patient where applicable. A&P - Nephrology Assessment/Plan (1) ESRD (end stage renal disease) on dialysis: Plan: Patient has ESRD related to combination of hepatorenal syndrome and cyclosporine toxicity. Patient had REED at the time of liver transplant as well and she did require short period of hemodialysis. Patient is back on dialysis since 05/04/2021. She was switched to IHD from PD on 09/07 after she fell and fractured her right arm. (2) History of peritoneal dialysis: Plan: * PD catheter was removed on 09/07 as it was broken and not usable. Patient also not able to do PD related to right arm fracture. * PD catheter tip culture is negative (3) History of shoulder fracture: Plan: Patient has right humerus fracture s/p fall after she tripped at home. (4) Anemia of renal disease: Assessment/Problem Details: Hemoglobin below the goal. She was transfused 1 unit of PRBC. (5) Liver transplant status: Plan: Patient status post liver transplant at [facility] on October 2014. She has mild elevated AST however ALT and bilirubin are normal. There is question that the patient still drinking vodka however is not confirmed. INR is elevated. Plan * No need for dialysis today. Next dialysis will be tomorrow. * Will reduce the dose of the oxycodone every 8 hours * Continue Aranesp 60 mcg and Ferrlecit 62.5 mg weekly with dialysis. She has adequate iron stores. * Patient on oral vancomycin for C. difficile colitis. * Continue current liver transplant medications including mycophenolate 720 mg p.o. daily and cyclosporine 75 mg p.o. daily. * Monitor daily intake and output, renal panel and CBC to adjust medications, dialysis prescription and blood transfusion for hemoglobin below 7 g/dL Documented By: Pedro Floyd MD 09/24/23 1201 Signed By: <Electronically signed by Pedro Floyd MD> 09/24/23 1204 [facility] Work Phone: [phone]) 146-819104-30-2024 Progress note Author Beba Ng [facility] September 23, 2023 2:35pm Note Date/Time September 23, 2023 2:[address] [facility] [address] [place] [address] Hospitalist Progress Note Signed Patient: Winnie Cai MR#: [id number] : 1985 Acct:[id number] Age/Sex: 38 / F Adm Date: 4 Loc: 4P Room: [address] [place] [address] Type: ADM IN Attending Dr: Beba Ng MD Copies to: ~ Date of Service: 09/23/2023 Subjective Subjective Narrative: No acute events noted overnight. Remained hemodynamically stable. Underwent dialysis session today. Doing well so far. having difficutly eating due to oral thrush, on magic wash. Still awaiting on placement. Exam Physical Exam Vital Signs: Temp Pulse Resp BP Pulse Ox O2 Del Method O2 Flow Rate 98.4 F 88 16 103/66 100 Room Air 6 09/23/23 13:09/23/23 13:25 09/23/23 13:25 09/23/23 13:25 09/23/23 13:09/23/23 13:09/08/23 19:23 Narrative: Constitutional: middle-aged WF, resting in bed in mild pain due to right upper extremity injury Cardiovascular: RRR, no M/R/G, normal S1 and S2, no JVD Respiratory: Lungs clear to auscultation bilaterally, no wheezes, rales or rhonchi GI: Soft, NTND, normoactive bowel sounds : Deferred Neuro: AAO x3, no focal deficits. CN III-XII grossly intact, Strength 5/5 throughout Extremities: No clubbing, cyanosis. RUE edematous, in sling on my assessment. Very tender throughout the proximal portion of the right arm. Very limited range of motion secondary to pain. Psych: Patient calm, cooperative and conversant Objective Lab Results 09/23/23 04:34 09/23/23 04:34 Meds Allergies and Active Meds Allergies fish oil Allergy (Unknown, Verified 09/17/23 15:25) Unknown Reaction Penicillins Allergy (Unknown, Verified 09/17/23 15:25) Unknown Reaction Sulfa (Sulfonamide Antibiotics) Allergy (Verified 09/17/23 15:25) Hives sulfamethoxazole [From Bactrim] Allergy (Verified 09/17/23 15:25) Hives trimethoprim [From Bactrim] Allergy (Verified 09/17/23 15:25) Hives Active Meds: Active Medications Generic Name Dose Route Start Last Admin Trade Name Freq PRN Reason Stop Dose Admin Calcium Acetate 667 mg 09/09/23 12:00 09/23/23 13:57 Calcium Acetate 667 Mg Capsule PO 09/08/24 11:59 667 mg TID.WITH.MEALS SERENA Administration Cyclosporine 75 mg 09/09/23 11:30 09/23/23 13:54 Cyclosporine Modified 25 Mg Capsule PO 09/08/24 11:29 75 mg DAILY [facility]ERE[facility] Administration Darbepoetin Mariano 60 mcg 09/11/23 09:30 09/18/23 10:12 Darbepoetin Mariano In Polysorbat 60 Mcg/Ml Vial IV-PUSH 09/10/24 09:29 60 mcg Th@0900 [facility] Administration Protocol Dextrose 0 gm 09/08/23 17:36 09/08/23 18:00 Dextrose 50% In Water 25 Gm/50 Ml Syringe IV-PUSH 09/07/24 17:35 25 gm PRN PRN Administration Hypoglycemia Escitalopram Oxalate 15 mg 09/09/23 11:30 09/23/23 13:54 Escitalopram 5 Mg Tablet PO 09/08/24 11:29 15 mg DAILY [facility]ERE[facility] Administration Ferric Sodium Gluconate Complex 62.5 mg 09/11/23 09:30 09/18/23 10:13 Sodium Ferric Gluconat/Sucrose 62.5 Mg/5 Ml Vial IV-PUSH 09/10/24 09:29 62.5 mg Th@0900 SERE[facility] Administration Folic Acid 5 mg 09/12/23 09:00 09/23/23 13:55 Folic Acid 1 Mg Tablet PO 09/11/24 08:59 5 mg DAILY [facility] Administration Heparin Sodium (Porcine) 4,100 unit 09/16/23 09:18 09/23/23 09:42 Heparin 10,000 Unit/10 Ml Vial IV 09/15/24 09:17 4,100 unit PRN PRN Administration Dialysis Heparin Sodium (Porcine) 2,000 unit 09/18/23 12:50 09/23/23 09:42 Heparin 10,000 Unit/10 Ml Vial IV 09/17/24 12:49 2,000 unit PRN PRN Administration Dialysis Sodium Chloride 1,000 mls @ 0 mls/hr 09/09/23 09:08 09/23/23 12:28 0.9% Sodium Chloride 1,000 Ml MISCELLANE 09/08/24 09:07 Infused .Q0M PRN Infusion Dialysis As Directed Levothyroxine Sodium 75 mcg 09/09/23 11:00 09/23/23 05:52 Levothyroxine 75 Mcg Tablet PO 09/08/24 10:59 75 mcg DAILY@0630 [facility] Administration Lidocaine HCl 0.1 ml 09/16/23 05:39 Lidocaine 1% 50 Ml Vial INTRADERMA PREOP PRN Venipuncture x 1 Dose Magnesium Oxide 200 mg 09/10/23 09:00 09/23/23 13:56 Magnesium Oxide 400 Mg Tablet PO 09/09/24 08:59 200 mg DAILY [facility] Administration Metoprolol Succinate 50 mg 09/08/23 22:00 09/22/23 21:54 Metoprolol Succinate 50 Mg Tab.Er.24h PO 09/07/24 21:59 50 mg QHS [facility] Administration Morphine Sulfate 1 mg 09/12/23 19:31 09/18/23 21:44 Morphine Sulfate 2 Mg/Ml Vial IV-PUSH 1 mg Q4H PRN Administration Pain Scale 7 - 10 Multi-Ingredient Mouthwash/Gargle 5 ml 09/16/23 18:52 09/22/23 09:48 Magic Mouthwash With Lidocaine PO 09/15/24 21:59 5 ml Q4HR PRN Administration Mouth Pain Multivitamins 1 tab 09/09/23 09:00 09/23/23 13:56 Multivitamin 1 Tab Tablet PO 09/08/24 08:59 1 tab DAILY [facility] Administration Mycophenolate Sodium 720 mg 09/09/23 11:30 09/23/23 13:58 Mycophenolate Sodium 180 Mg Tablet.Dr *Nf* PO 09/08/24 11:29 720 mg DAILY [facility] Administration Nicotine 1 each 09/15/23 15:09 09/22/23 21:55 Nicotine Patch 21 Mg/24hr 1 Each Patch.Td24 TRANSDERML 10/27/23 09:01 1 each DAILY PRN Administration Nicotine Cravings Nystatin 400,000 unit 09/16/23 22:00 09/23/23 13:57 Nystatin Susp 500,000 Unit/5 Ml Udc PO 09/15/24 21:59 400,000 unit TID [facility]ERE[facility] Administration Ondansetron HCl 4 mg 09/08/23 15:49 09/11/23 14:02 Ondansetron 4 Mg/2 Ml Vial IV-PUSH 09/07/24 15:48 4 mg Q6H PRN Administration Nausea And Vomiting Oxycodone/Acetaminophen 1 tab 09/19/23 04:05 09/23/23 14:16 Oxycodone/Acetaminophen 5-325 Mg Tablet PO 1 tab Q4H PRN Administration Pain Pantoprazole Sodium 40 mg 09/12/23 09:00 09/23/23 13:56 Pantoprazole 40 Mg Tablet. PO 09/11/24 08:59 40 mg DAILY [facility]ERE[facility] Administration Potassium Chloride 40 meq 09/08/23 15:49 09/20/23 13:51 Potassium Chloride Er 20 Meq Tab.Er.Prt PO 09/07/24 15:48 40 meq DAILY PRN Administration Hypokalemia Sodium Chloride 0 ml 09/08/23 09:52 09/23/23 09:42 Sodium Chloride 0.9 % 10 Ml Syringe IV-PUSH 09/07/24 09:51 40 ml PRN PRN Administration Flush Sodium Chloride 0 ml 09/08/23 19:08 Sodium Chloride 0.9 % 10 Ml Vial.Pf IV 09/07/24 19:07 PRN PRN ATIVAN DILUTION Sodium Chloride 0 ml 09/09/23 09:08 09/20/23 09:43 Sodium Chloride 0.9 % 10 Ml Syringe IV-PUSH 09/08/24 09:07 40 ml PRN PRN Administration Flush Thiamine HCl 100 mg 09/08/23 21:00 09/23/23 13:59 Thiamine 100 Mg Tablet PO 09/07/24 20:59 100 mg BID SERENA Administration A&P - Hospitalist Assessment/Plan (1) Dehydration: (2) Rhabdomyolysis: (3) Anemia of renal disease: (4) Liver transplant status: (5) Peritoneal dialysis catheter mechanical complication: Plan Assessment and Plan: A 38F with PMH of HTN, history of Alcoholic liver failure (s/p transplant at [id number]), 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 Sepsis secondary to C. Diff Infection Diarrhea resolved. Remains afebrile, hemodynamically stable, leukocytosis still present but trend is lowering. CT abd shows diffuse wall thickening within the colon with accompanying pericolonic fat stranding. This is consistent with colitis which may be infectious or inflammatory. Also considered PD catheter malfunction as source of sepsis, but blood culture as well as catheter tip culture is negative She was started empirically on broad spectrum IV antibiotics with Invanz (PCN allergy) and Vancomycin IV initially. C.diff came back positive which explained her leukocytosis. Given no sign of other infection and negative blood Cx broad spectrum IV was discontinued -Completed vancomycin PO x10 days. Acute on Chronic Anemia Chronic Anemia of CKD Hemoglobin improved and has been stable. No signs of bleeding at this time. no overt bleeding. she follows up for anemia with [facility] Dm. GI evaluated the patient and advised that her anemia is due to ESRD, with no endoscopic evaluation advised at this time due to lack of evidence of signs of overt bleeding. -Patient has received 2 units packed red blood cells since presentation -Monitor CBC closely Folate Deficiency Folate low 5.7 she was started on supplement ESRD PD cath dysfunction Severe Hyponatremia -improved Nephrology was consulted for the management of dialysis and ESRD complication, recommendation appreciated. PD cath removed by General surgery and temporary R groin HD catheter placed by pulmonary -now removed -Underwent tunneled HD cath, HD schedule per nephrology Liver Transplant She had liver transplant at [facility] back in 2014 due to Alcoholic liver failure. family said she may be she has not been taking her antirejection mediation. there is a high possibility of noncompliance. -Continue home anti-rejection medications Acute Metabolic Encephalopathy Mental status now at baseline. Likely multifactorial in the setting of possibleuremic encephalopathy, alcohol withdrawal, acute C. difficile infection. Ammonia level also elevated, but low suspicion that etiology is hepatic in origin. -Neurology recommendation appreciated; further workup per their recommendations -Treat C. difficile infection, maintain on HD schedule, hold on lactulose administration Elevated Troponin In the setting of poor renal clearance, sepsis from C. difficile. Patient has no cardiorespiratory complaints. No EKG changes present Recent right traumatic proximal humerus fracture There is edema in her R arm and with some ecchymosis. there is no warmth, tenderness (lower form the shoulder) or erythema. Patient does continue to complain of pain. Seen on x-ray at [facility] on 09/01/2023. Orthopedic consult for possiblelate complication of humerus fracture. Discussed surgical versus conservative options with family. surgical intervention was not recommended, and she is to follow as outpatient. Due to weak pulse in her right arm PVR UE was done which was Normal -Nonweightbearing right upper extremity and sling for comfort -Pain control with morphine, Percocet-will be cautious with these medications given patient's liver and kidney issues Probable EtOH Abuse Disorder/withdrawal There is conflicting information about her drinking habit. The family doesn't know if she drinks at home. the patient has vague answers about the last time she had a drink. she reported to RN on admission that she still drinks. Blood alcohol concentration is not detected on admission -Can discontinue CIWA protocol given that patient is likely out of the withdrawal window and mental status has improved -Multivitamin/folic acid/Thiamine -Symptom control and supportive care Sore Throat/Oral Candidiasis There was oral white Mucosal Lesions on her tongue which is slowly getting better local antifungal treatment w/nystatin Hypothyroidism TSH wnl; Synthroid was continued Poor Appetite I encouraged oral intake diet supplements dietitian input noted Rhabdomyolysis - resolved She was given IVF. CPK improved to normal Physical Deconditioning Secondary to multiple acute medical issues. Will need to increase work with PT/OT this week -Plan for SNF on discharge Chronic diseases: Unless mentioned Above, Essential home medications have been continued. DVT Px: SCDs Disposition: SNF on discharge, increased work with PT/OT Plan of care Discussed with: the medical team, the patient, patient's grandmother Patient remained stable for discharge once arrangements are made Documented By: Beba Ng MD 09/23/23 14 32 Signed By: <Electronically signed by Beba Ng MD> 09/23/23 1435 [facility] Work Phone: [phone]) 987-950904-30-2024 Progress note Author Pedro Floyd [facility] September 23, 2023 11:20am Note Date/Time September 23, 2023 11: 01am [facility] [address] [place] [address] Nephrology Progress Note Signed Patient: Winnie Cai MR#: [id number] : 1985 Acct:[id number] Age/Sex: 38 / F Adm Date: 4 Loc: 4 Room: [address] [place] [address] Type: ADM IN Attending Dr: Beba Ng MD Copies to: ~ Date of Service: 09/23/2023 Subjective Subjective Narrative: Ms. 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 PD was started at [place] however he moved to [place] closer to her home. She has a history of liver transplant due to alcoholic liver cirrhosis at [facility] 2014. She did require hemodialysis in the perioperative period and later on was transitioned to PD. Patient has been noncompliant with peritoneal dialysis and missing multiple treatments at home per her records. Patient was brought to the ER on 09/07 as she has been significantly weak and dehydrated. Patient sustained a fall after she tripped last week and went to [facility] ER but she was found to have fracture of the right head of humerus. Right hand currently in sling dressing she is supposed to see orthopedics as outpatient. Patient was not able to do peritoneal dialysis at home since she has limited mobility of the right arm. Patient reported that she has not been eating or drinking over the last few days. Evaluation in the ER showed large hematoma around the shoulder and the chest. She was tachycardic 111 however blood pressure 115/73. No fever or chills. WBCs count was found to be [id number]. Patient was started empirically on vancomycin and Zosyn after 2 sets ofblood culture was obtained. Hemoglobin was low 7.3 compared to 10 g/dL on . She has mildly elevated INR 1.4 despite she is not on any blood thinners medication. There is a report by nursing staff that patient still drinking vodka however it does not confirm. Ethyl alcohol level on admission was less than 10 mg/dL. Interval history: Patient was seen and examined at bedside during hemodialysis. Denies any chest pain palpation cough nausea vomiting or shortness of breath Exam Physical Exam Vital Signs: Temp Pulse Resp BP Pulse Ox O2 Del Method O2 Flow Rate 97.8 F 89 16 93/44 L 99 Room Air 6 09/23/23 09:14 09/23/23 10:29 09/23/23 09:14 09/23/23 10:29 09/23/23 09:14 09/23/23 09:14 09/08/23 19:23 Narrative: General: Appears comfortable and not in distress Heart: S1-S2, no rub Lung: Bilateral air entry, no wheezing or crackles Abdomen: Soft, positive bowel sounds Extremities: No edema, no cyanosis Head: Atraumatic, normocephalic Ear: No gross hearing Deficit or external ear redness Eyes: No pallor or redness Neck: No JVD or visible mass Skin: No rashes , warm to touch 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,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, following simple command Psychiatric: Cooperative, normal mood and affect Objective Intake and Output I&O: Intake & Output 09/20/23 09/21/23 09/22/23 09/23/23 23:59 23:59 23:59 23:59 Intake Total 1200 / 1200 1040 / 1040 900 / 900 750 / 750 Output Total 1500 / 1500 Balance -300 / -300 1040 / 1040 900 / 900 750 / 750 Weight 64.6 kg 64.9 kg 65.1 kg 63.6 kg Meds and Allergies Meds: Active Medications Calcium Acetate (Calcium Acetate 667 Mg Capsule) 667 mg PO TID.WITH.MEALS [facility] Stop: 09/08/24 11:59 Last Admin: 09/23/23 08:34 Dose: Not Given Cyclosporine (Cyclosporine Modified 25 Mg Capsule) 75 mg PO DAILY [facility] Stop: 09/08/24 11:29 Last Admin: 09/22/23 08:55 Dose: 75 mg Darbepoetin Mariano (Darbepoetin Mariano In Polysorbat 60 Mcg/Ml Vial) 60 mcg IV-PUSHTh@0900 [facility]; Protocol Stop: 09/10/24 09:29 Last Admin: 09/18/23 10:12 Dose: 60 mcg Dextrose (Dextrose 50% In Water 25 Gm/50 Ml Syringe) 0 gm IV-PUSH PRN PRN PRN Reason: Hypoglycemia Stop: 09/07/24 17:35 Last Admin: 09/08/23 18:00 Dose: 25 gm Escitalopram Oxalate (Escitalopram 5 Mg Tablet) 15 mg PO DAILY [facility] Stop: 09/08/24 11:29 Last Admin: 09/22/23 08:55 Dose: 15 mg Ferric Sodium Gluconate Complex (Sodium Ferric Gluconat/Sucrose 62.5 Mg/5 Ml Vial) 62.5 mg IV-PUSH Th@0900 [facility] Stop: 09/10/24 09:29 Last Admin: 09/18/23 10:13 Dose: 62.5 mg Folic Acid (Folic Acid 1 Mg Tablet) 5 mg PO DAILY [facility] Stop: 09/11/24 08:59 Last Admin: 09/22/23 08:56 Dose: 5 mg Heparin Sodium (Porcine) (Heparin 10,000 Unit/10 Ml Vial) 4,100 unit IV PRN PRN PRN Reason: Dialysis Stop: 09/15/24 09:17 Last Admin: 09/23/23 09:42 Dose: 4,100 unit Heparin Sodium (Porcine) (Heparin 10,000 Unit/10 Ml Vial) 2,000 unit IV PRN PRN PRN Reason: Dialysis Stop: 09/17/24 12:49 Last Admin: 09/23/23 09:42 Dose: 2,000 unit Sodium Chloride (0.9% Sodium Chloride 1,000 Ml) 1,000 mls @ 0 mls/hr MISCELLANE.Q0M PRN PRN Reason: Dialysis Stop: 09/08/24 09:07 Last Infusion: 09/23/23 09:44 Dose: Infused Levothyroxine Sodium (Levothyroxine 75 Mcg Tablet) 75 mcg PO DAILY@0630 [facility] Stop: 09/08/24 10:59 Last Admin: 09/23/23 05:52 Dose: 75 mcg Lidocaine HCl (Lidocaine 1% 50 Ml Vial) 0.1 ml INTRADERMA PREOP PRN PRN Reason: Venipuncture x 1 Dose Magnesium Oxide (Magnesium Oxide 400 Mg Tablet) 200 mg PO DAILY [facility] Stop: 09/09/24 08:59 Last Admin: 09/22/23 08:55 Dose: 200 mg Metoprolol Succinate (Metoprolol Succinate 50 Mg Tab.Er.24h) 50 mg PO QHS [facility] Stop: 09/07/24 21:59 Last Admin: 09/22/23 21:54 Dose: 50 mg Morphine Sulfate (Morphine Sulfate 2 Mg/Ml Vial) 1 mg IV-PUSH Q4H PRN PRN Reason: Pain Scale 7 - 10 Last Admin: 09/18/23 21:44 Dose: 1 mg Multi-Ingredient Mouthwash/Gargle (Magic Mouthwash With Lidocaine) 5 ml PO [id number] PRN Reason: Mouth Pain Stop: 09/15/24 21:59 Last Admin: 09/22/23 09:48 Dose: 5 ml Multivitamins (Multivitamin 1 Tab Tablet) 1 tab PO DAILY [facility] Stop: 09/08/24 08:59 Last Admin: 09/22/23 08:55 Dose: 1 tab Mycophenolate Sodium (Mycophenolate Sodium 180 Mg Tablet. *Nf*) 720 mg PO DAILY [facility] Stop: 09/08/24 11:29 Last Admin: 09/22/23 09:47 Dose: 720 mg Nicotine (Nicotine Patch 21 Mg/24hr 1 Each Patch.Td24) 1 each TRANSDERML DAILY PRN PRN Reason: Nicotine Cravings Stop: 10/27/23 09:01 Last Admin: 09/22/23 21:55 Dose: 1 each Nystatin (Nystatin Susp 500,000 Unit/5 Ml Udc) 400,000 unit PO TID SERENA Stop: 09/15/24 21:59 Last Admin: 09/23/23 08:36 Dose: 400,000 unit Ondansetron HCl (Ondansetron 4 Mg/2 Ml Vial) 4 mg IV-PUSH Q6H PRN PRN Reason: Nausea And Vomiting Stop: 09/07/24 15:48 Last Admin: 09/11/23 14:02 Dose: 4 mg Oxycodone/Acetaminophen (Oxycodone/Acetaminophen 5-325 Mg Tablet) 1 tab PO Q4H PRN PRN Reason: Pain Last Admin: 09/23/23 05:52 Dose: 1 tab Pantoprazole Sodium (Pantoprazole 40 Mg Tablet.) 40 mg PO DAILY [facility] Stop: 09/11/24 08:59 Last Admin: 09/22/23 08:55 Dose: 40 mg Potassium Chloride (Potassium Chloride Er 20 Meq Tab.Er.Prt) 40 meq PO DAILY PRN PRN Reason: Hypokalemia Stop: 09/07/24 15:48 Last Admin: 09/20/23 13:51 Dose: 40 meq Sodium Chloride (Sodium Chloride 0.9 % 10 Ml Syringe) 0 ml IV-PUSH PRN PRN PRN Reason: Flush Stop: 09/07/24 09:51 Last Admin: 09/23/23 09:42 Dose: 40 ml Sodium Chloride (Sodium Chloride 0.9 % 10 Ml Vial.Pf) 0 ml IV PRN PRN PRN Reason: ATIVAN DILUTION Stop: 09/07/24 19:07 Sodium Chloride (Sodium Chloride 0.9 % 10 Ml Syringe) 0 ml IV-PUSH PRN PRN PRN Reason: Flush Stop: 09/08/24 09:07 Last Admin: 09/20/23 09:43 Dose: 40 ml Thiamine HCl (Thiamine 100 Mg Tablet) 100 mg PO BID [facility] Stop: 09/07/24 20:59 Last Admin: 09/22/23 21:54 Dose: 100 mg Allergies fish oil Allergy (Unknown, Verified 09/17/23 15:25) Unknown Reaction Penicillins Allergy (Unknown, Verified 09/17/23 15:25) Unknown Reaction Sulfa (Sulfonamide Antibiotics) Allergy (Verified 09/17/23 15:25) Hives sulfamethoxazole [From Bactrim] Allergy (Verified 09/17/23 15:25) Hives trimethoprim [From Bactrim] Allergy (Verified 09/17/23 15:25) Hives Results - Nephrology Labs 09/23/23 04:34 09/23/23 04:34 Labs: 09/23/23 04:34 BUN 15 Creatinine 6.66 H D Albumin 2.3 L Radiology Impressions Impressions - last 24 hours: Any impression(s) listed above is documentation that was entered by the reading physician into a diagnostic report(s) for Winnie Cai. I have reviewed the report(s) and am incorporating any findings in the treatment plan of this patient where applicable. A&P - Nephrology Assessment/Plan (1) ESRD (end stage renal disease) on dialysis: Plan: Patient has ESRD related to combination of hepatorenal syndrome and cyclosporine toxicity. Patient had REED at the time of liver transplant as well and she did require short period of hemodialysis. Patient is back on dialysis since 05/04/2021. She was switched to IHD from PD on 09/07 after she fell and fractured her right arm. (2) History of peritoneal dialysis: Plan: * PD catheter was removed on 09/07 as it was broken and not usable. Patient also not able to do PD related to right arm fracture. * PD catheter tip culture is negative (3) History of shoulder fracture: Plan: Patient has right humerus fracture s/p fall after she tripped at home. (4) Anemia of renal disease: Assessment/Problem Details: Hemoglobin below the goal. She was transfused 1 unit of PRBC. (5) Liver transplant status: Plan: Patient status post liver transplant at [facility] on October 2014. She has mild elevated AST however ALT and bilirubin are normal. There is question that the patient still drinking vodka however is not confirmed. INR is elevated. Plan * Hemodialysis today as ordered * Continue Aranesp 60 mcg and Ferrlecit 62.5 mg weekly with dialysis. She has adequate iron stores. * Patient on oral vancomycin for C. difficile colitis. * Continue current liver transplant medications including mycophenolate 720 mg p.o. daily and cyclosporine 75 mg p.o. daily. * Monitor daily intake and output, renal panel and CBC to adjust medications, dialysis prescription and blood transfusion for hemoglobin below 7 g/dL Documented By: Pedro Floyd MD 09/23/23 1059 Signed By: <Electronically signed by Pedro Floyd MD> 09/23/23 1[address] [facility] Work Phone: [phone] Progress note Author Beba Ng [facility] September 22, 2023 2:27pm Note Date/Time September 22, 2023 2:[address] [facility] [address] [place] [address] Hospitalist Progress Note Signed Patient: Winnie Cai MR#: [id number] : 1985 Acct:[id number] Age/Sex: 38 / F Adm Date: 4 Loc: Room: [address] [place] [address] Type: ADM IN Attending Dr: Beba Ng MD Copies to: ~ Date of Service: 09/22/2023 Subjective Subjective Narrative: No acute events noted overnight. Remained hemodynamically stable. Still has limitations due to her RUE orthopedic issues. Grandmother in the room and askingabout interventions which from chart review seem to be planned to be done as outpatient. Exam Physical Exam Vital Signs: Temp Pulse Resp BP Pulse Ox O2 Del Method O2 Flow Rate 98.0 F 78 16 104/63 100 Room Air 6 09/22/23 08:54 09/22/23 08:54 09/22/23 08:54 09/22/23 08:54 09/22/23 08:54 09/22/23 09:13 09/08/23 19:23 Narrative: Constitutional: middle-aged WF, resting in bed in mild pain due to right upper extremity injury Cardiovascular: RRR, no M/R/G, normal S1 and S2, no JVD Respiratory: Lungs clear to auscultation bilaterally, no wheezes, rales or rhonchi GI: Soft, NTND, normoactive bowel sounds : Deferred Neuro: AAO x3, no focal deficits. CN III-XII grossly intact, Strength 5/5 throughout Extremities: No clubbing, cyanosis. RUE edematous, in sling on my assessment. Very tender throughout the proximal portion of the right arm. Very limited range of motion secondary to pain. Psych: Patient calm, cooperative and conversant Objective Lab Results 09/22/23 04:32 09/22/23 04:32 Meds Allergies and Active Meds Allergies fish oil Allergy (Unknown, Verified 09/17/23 15:25) Unknown Reaction Penicillins Allergy (Unknown, Verified 09/17/23 15:25) Unknown Reaction Sulfa (Sulfonamide Antibiotics) Allergy (Verified 09/17/23 15:25) Hives sulfamethoxazole [From Bactrim] Allergy (Verified 09/17/23 15:25) Hives trimethoprim [From Bactrim] Allergy (Verified 09/17/23 15:25) Hives Active Meds: Active Medications Generic Name Dose Route Start Last Admin Trade Name Freq PRN Reason Stop Dose Admin Calcium Acetate 667 mg 09/09/23 12:00 09/22/23 13:00 Calcium Acetate 667 Mg Capsule PO 09/08/24 11:59 667 mg TID.WITH.MEALS SERENA Administration Cyclosporine 75 mg 09/09/23 11:30 09/22/23 08:55 Cyclosporine Modified 25 Mg Capsule PO 09/08/24 11:29 75 mg DAILY SERENA Administration Darbepoetin Mariano 60 mcg 09/11/23 09:30 09/18/23 10:12 Darbepoetin Mariano In Polysorbat 60 Mcg/Ml Vial IV-PUSH 09/10/24 09:29 60 mcg Th@0900 SERENA Administration Protocol Dextrose 0 gm 09/08/23 17:36 09/08/23 18:00 Dextrose 50% In Water 25 Gm/50 Ml Syringe IV-PUSH 09/07/24 17:35 25 gm PRN PRN Administration Hypoglycemia Escitalopram Oxalate 15 mg 09/09/23 11:30 09/22/23 08:55 Escitalopram 5 Mg Tablet PO 09/08/24 11:29 15 mg DAILY SERENA Administration Ferric Sodium Gluconate Complex 62.5 mg 09/11/23 09:30 09/18/23 10:13 Sodium Ferric Gluconat/Sucrose 62.5 Mg/5 Ml Vial IV-PUSH 09/10/24 09:29 62.5 mg Th@0900 SERENA Administration Folic Acid 5 mg 09/12/23 09:00 09/22/23 08:56 Folic Acid 1 Mg Tablet PO 09/11/24 08:59 5 mg DAILY SERENA Administration Heparin Sodium (Porcine) 4,100 unit 09/16/23 09:18 09/20/23 09:42 Heparin 10,000 Unit/10 Ml Vial IV 09/15/24 09:17 4,100 unit PRN PRN Administration Dialysis Heparin Sodium (Porcine) 2,000 unit 09/18/23 12:50 09/20/23 09:42 Heparin 10,000 Unit/10 Ml Vial IV 09/17/24 12:49 2,000 unit PRN PRN Administration Dialysis Sodium Chloride 1,000 mls @ 0 mls/hr 09/09/23 09:08 09/20/23 09:44 0.9% Sodium Chloride 1,000 Ml MISCELLANE 09/08/24 09:07 Infused .Q0M PRN Infusion Dialysis As Directed Levothyroxine Sodium 75 mcg 09/09/23 11:00 09/22/23 06:53 Levothyroxine 75 Mcg Tablet PO 09/08/24 10:59 Not Given DAILY@0630 [facility] Lidocaine HCl 0.1 ml 09/16/23 05:39 Lidocaine 1% 50 Ml Vial INTRADERMA PREOP PRN Venipuncture x 1 Dose Magnesium Oxide 200 mg 09/10/23 09:00 09/22/23 08:55 Magnesium Oxide 400 Mg Tablet PO 09/09/24 08:59 200 mg DAILY SERENA Administration Metoprolol Succinate 50 mg 09/08/23 22:00 09/21/23 21:43 Metoprolol Succinate 50 Mg Tab.Er.24h PO 09/07/24 21:59 Not Given QHS [facility] Morphine Sulfate 1 mg 09/12/23 19:31 09/18/23 21:44 Morphine Sulfate 2 Mg/Ml Vial IV-PUSH 1 mg Q4H PRN Administration Pain Scale 7 - 10 Multi-Ingredient Mouthwash/Gargle 5 ml 09/16/23 18:52 09/22/23 09:48 Magic Mouthwash With Lidocaine PO 09/15/24 21:59 5 ml Q4HR PRN Administration Mouth Pain Multivitamins 1 tab 09/09/23 09:00 09/22/23 08:55 Multivitamin 1 Tab Tablet PO 09/08/24 08:59 1 tab DAILY SERENA Administration Mycophenolate Sodium 720 mg 09/09/23 11:30 09/22/23 09:47 Mycophenolate Sodium 180 [address] Tablet.Dr *Nf* PO 09/08/24 11:29 720 mg DAILY SERENA Administration Nicotine 1 each 09/15/23 15:09 09/21/23 20:22 Nicotine Patch 21 Mg/24hr 1 Each Patch.Td24 TRANSDERML 10/27/23 09:01 1 each DAILY PRN Administration Nicotine Cravings Nystatin 400,000 unit 09/16/23 22:00 09/22/23 13:00 Nystatin Susp 500,000 Unit/5 Ml Udc PO 09/15/24 21:59 Not Given TID SERENA Ondansetron HCl 4 mg 09/08/23 15:49 09/11/23 14:02 Ondansetron 4 Mg/2 Ml Vial IV-PUSH 09/07/24 15:48 4 mg Q6H PRN Administration Nausea And Vomiting Oxycodone/Acetaminophen 1 tab 09/19/23 04:05 09/22/23 09:47 Oxycodone/Acetaminophen 5-325 Mg Tablet PO 1 tab Q4H PRN Administration Pain Pantoprazole Sodium 40 mg 09/12/23 09:00 09/22/23 08:55 Pantoprazole 40 Mg Tablet. PO 09/11/24 08:59 40 mg DAILY SERENA Administration Potassium Chloride 40 meq 09/08/23 15:49 09/20/23 13:51 Potassium Chloride Er 20 Meq Tab.Er.Prt PO 09/07/24 15:48 40 meq DAILY PRN Administration Hypokalemia Sodium Chloride 0 ml 09/08/23 09:52 09/18/23 10:14 Sodium Chloride 0.9 % 10 Ml Syringe IV-PUSH 09/07/24 09:51 40 ml PRN PRN Administration Flush Sodium Chloride 0 ml 09/08/23 19:08 Sodium Chloride 0.9 % 10 Ml Vial.Pf IV 09/07/24 19:07 PRN PRN ATIVAN DILUTION Sodium Chloride 0 ml 09/09/23 09:08 09/20/23 09:43 Sodium Chloride 0.9 % 10 Ml Syringe IV-PUSH 09/08/24 09:07 40 ml PRN PRN Administration Flush Thiamine HCl 100 mg 09/08/23 21:00 09/22/23 08:55 Thiamine 100 Mg Tablet PO 09/07/24 20:59 100 mg BID SERENA Administration A&P - Hospitalist Assessment/Plan (1) Dehydration: (2) Rhabdomyolysis: (3) Anemia of renal disease: (4) Liver transplant status: (5) Peritoneal dialysis catheter mechanical complication: Plan Assessment and Plan: A 38F with PMH of HTN, history of Alcoholic liver failure (s/p transplant at [id number]), 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 Sepsis secondary to C. Diff Infection Diarrhea resolved. Remains afebrile, hemodynamically stable, leukocytosis still present but trend is lowering. CT abd shows diffuse wall thickening within the colon with accompanying pericolonic fat stranding. This is consistent with colitis which may be infectious or inflammatory. Also considered PD catheter malfunction as source of sepsis, but blood culture as well as catheter tip culture is negative She was started empirically on broad spectrum IV antibiotics with Invanz (PCN allergy) and Vancomycin IV initially. C.diff came back positive which explained her leukocytosis. Given no sign of other infection and negative blood Cx broad spectrum IV was discontinued -Completed vancomycin PO x10 days. Acute on Chronic Anemia Chronic Anemia of CKD Hemoglobin improved and has been stable. No signs of bleeding at this time. no overt bleeding. she follows up for anemia with [facility] Dm. GI evaluated the patient and advised that her anemia is due to ESRD, with no endoscopic evaluation advised at this time due to lack of evidence of signs of overt bleeding. -Patient has received 2 units packed red blood cells since presentation -Monitor CBC closely Folate Deficiency Folate low 5.7 she was started on supplement ESRD PD cath dysfunction Severe Hyponatremia -improved Nephrology was consulted for the management of dialysis and ESRD complication, recommendation appreciated. PD cath removed by General surgery and temporary R groin HD catheter placed by pulmonary -now removed -Underwent tunneled HD cath, HD schedule per nephrology Liver Transplant She had liver transplant at [facility] back in 2014 due to Alcoholic liver failure. family said she may be she has not been taking her antirejection mediation. there is a high possibility of noncompliance. -Continue home anti-rejection medications Acute Metabolic Encephalopathy Mental status now close to baseline. Likely multifactorial in the setting of possible uremic encephalopathy, alcohol withdrawal, acute C. difficile infection. Ammonia level also elevated, but low suspicion that etiology is hepatic in origin. -Neurology recommendation appreciated; further workup per their recommendations -Treat C. difficile infection, maintain on HD schedule, hold on lactulose administration Elevated Troponin In the setting of poor renal clearance, sepsis from C. difficile. Patient has no cardiorespiratory complaints. No EKG changes present Recent right traumatic proximal humerus fracture There is edema in her R arm and with some ecchymosis. there is no warmth, tenderness (lower form the shoulder) or erythema. Patient does continue to complain of pain. Seen on x-ray at [facility] on 09/01/2023. Orthopedic consult for possiblelate complication of humerus fracture. Discussed surgical versus conservative options with family. surgical intervention was not recommended, and she is to follow as outpatient. Due to weak pulse in her right arm PVR UE was done which was Normal -Nonweightbearing right upper extremity and sling for comfort -Pain control with morphine, Percocet-will be cautious with these medications given patient's liver and kidney issues Probable EtOH Abuse Disorder/withdrawal There is conflicting information about her drinking habit. The family doesn't know if she drinks at home. the patient has vague answers about the last time she had a drink. she reported to RN on admission that she still drinks. Blood alcohol concentration is not detected on admission -Can discontinue CIWA protocol given that patient is likely out of the withdrawal window and mental status has improved -Multivitamin/folic acid/Thiamine -Symptom control and supportive care Sore Throat/Oral Candidiasis There was oral white Mucosal Lesions on her tongue which is slowly getting better local antifungal treatment w/nystatin Hypothyroidism TSH wnl; Synthroid was continued Poor Appetite I encouraged oral intake diet supplements dietitian input noted Rhabdomyolysis - resolved She was given IVF. CPK improved to normal Physical Deconditioning Secondary to multiple acute medical issues. Will need to increase work with PT/OT this week -Plan for SNF on discharge Chronic diseases: Unless mentioned Above, Essential home medications have been continued. DVT Px: SCDs Disposition: SNF on discharge, increased work with PT/OT Plan of care Discussed with: the medical team, the patient, patient's grandmother Patient remained stable for discharge once arrangements are made Documented By: Beba Ng MD 09/22/23 14 11 Signed By: <Electronically signed by Beba Ng MD> 09/22/23 14[address] [facility] Work Phone: [phone] Progress note Author Pedro Floyd [facility] September 22, 2023 11:48am Note Date/Time September 22, 2023 11: 48am [facility] [address] [place] [address] Nephrology Progress Note Signed Patient: Winnie Cai MR#: [id number] : 1985 Acct:[id number] Age/Sex: 38 / F Adm Date: 4 Loc: Room: [address] [place] [address] Type: ADM IN Attending Dr: Beba Ng MD Copies to: ~ Date of Service: 09/22/2023 Subjective Subjective Narrative: Ms. 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 PD was started at [place] however he moved to [place] closer to her home. She has a history of liver transplant due to alcoholic liver cirrhosis at [facility] 2014. She did require hemodialysis in the perioperative period and later on was transitioned to PD. Patient has been noncompliant with peritoneal dialysis and missing multiple treatments at home per her records. Patient was brought to the ER on 09/07 as she has been significantly weak and dehydrated. Patient sustained a fall after she tripped last week and went to [facility] ER but she was found to have fracture of the right head of humerus. Right hand currently in sling dressing she is supposed to see orthopedics as outpatient. Patient was not able to do peritoneal dialysis at home since she has limited mobility of the right arm. Patient reported that she has not been eating or drinking over the last few days. Evaluation in the ER showed large hematoma around the shoulder and the chest. She was tachycardic 111 however blood pressure 115/73. No fever or chills. WBCs count was found to be ,000. Patient was started empirically on vancomycin and Zosyn after 2 sets ofblood culture was obtained. Hemoglobin was low 7.3 compared to 10 g/dL on . She has mildly elevated INR 1.4 despite she is not on any blood thinners medication. There is a report by nursing staff that patient still drinking vodka however it does not confirm. Ethyl alcohol level on admission was less than 10 mg/dL. Interval history: Patient was seen and examined at bedside. She reported she still having a difficulty in taking things by mouth due to the oral thrush. Denies any chest pain palpation cough nausea vomiting or shortness of breath Right IJ tunneled catheter was replaced September 15. Patient continues to complain of right arm pain due to humerus fracture. Right arm is in splint Exam Physical Exam Vital Signs: Temp Pulse Resp BP Pulse Ox O2 Del Method O2 Flow Rate 98.0 F 78 16 104/63 100 Room Air 6 09/22/23 08:54 09/22/23 08:54 09/22/23 08:54 09/22/23 08:54 09/22/23 08:54 09/22/23 09:13 09/08/23 19:23 Narrative: General: Appears comfortable and not in distress Heart: S1-S2, no rub Lung: Bilateral air entry, no wheezing or crackles Abdomen: Soft, positive bowel sounds Extremities: No edema, no cyanosis Head: Atraumatic, normocephalic Ear: No gross hearing Deficit or external ear redness Eyes: No pallor or redness Neck: No JVD or visible mass Skin: No rashes , warm to touch 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,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, following simple command Psychiatric: Cooperative, normal mood and affect Objective Intake and Output I&O: Intake & Output 09/19/23 09/20/23 09/21/23 09/22/23 23:59 23:59 23:59 23:59 Intake Total 1150 / 1150 1200 / 1200 1040 / 1040 500 / 500 Output Total 1500 / 1500 Balance 1150 / 1150 -300 / -300 1040 / 1040 500 / 500 Weight 64.7 kg 64.6 kg 64.9 kg 65.1 kg Meds and Allergies Meds: Active Medications Calcium Acetate (Calcium Acetate 667 Mg Capsule) 667 mg PO TID.WITH.MEALS SERENA Stop: 09/08/24 11:59 Last Admin: 09/22/23 08:55 Dose: 667 mg Cyclosporine (Cyclosporine Modified 25 Mg Capsule) 75 mg PO DAILY [facility] Stop: 09/08/24 11:29 Last Admin: 09/22/23 08:55 Dose: 75 mg Darbepoetin Mariano (Darbepoetin Mariano In Polysorbat 60 Mcg/Ml Vial) 60 mcg IV-PUSHTh@0900 [facility]; Protocol Stop: 09/10/24 09:29 Last Admin: 09/18/23 10:12 Dose: 60 mcg Dextrose (Dextrose 50% In Water 25 Gm/50 Ml Syringe) 0 gm IV-PUSH PRN PRN PRN Reason: Hypoglycemia Stop: 09/07/24 17:35 Last Admin: 09/08/23 18:00 Dose: 25 gm Escitalopram Oxalate (Escitalopram 5 Mg Tablet) 15 mg PO DAILY [facility] Stop: 09/08/24 11:29 Last Admin: 09/22/23 08:55 Dose: 15 mg Ferric Sodium Gluconate Complex (Sodium Ferric Gluconat/Sucrose 62.5 Mg/5 Ml Vial) 62.5 mg IV-PUSH Th@0900 [facility] Stop: 09/10/24 09:29 Last Admin: 09/18/23 10:13 Dose: 62.5 mg Folic Acid (Folic Acid 1 Mg Tablet) 5 mg PO DAILY [facility] Stop: 09/11/24 08:59 Last Admin: 09/22/23 08:56 Dose: 5 mg Heparin Sodium (Porcine) (Heparin 10,000 Unit/10 Ml Vial) 4,100 unit IV PRN PRN PRN Reason: Dialysis Stop: 09/15/24 09:17 Last Admin: 09/20/23 09:42 Dose: 4,100 unit Heparin Sodium (Porcine) (Heparin 10,000 Unit/10 Ml Vial) 2,000 unit IV PRN PRN PRN Reason: Dialysis Stop: 09/17/24 12:49 Last Admin: 09/20/23 09:42 Dose: 2,000 unit Sodium Chloride (0.9% Sodium Chloride 1,000 Ml) 1,000 mls @ 0 mls/hr MISCELLANE.Q0M PRN PRN Reason: Dialysis Stop: 09/08/24 09:07 Last Infusion: 09/20/23 09:44 Dose: Infused Levothyroxine Sodium (Levothyroxine 75 Mcg Tablet) 75 mcg PO DAILY@0630 [facility] Stop: 09/08/24 10:59 Last Admin: 09/22/23 06:53 Dose: Not Given Lidocaine HCl (Lidocaine 1% 50 Ml Vial) 0.1 ml INTRADERMA PREOP PRN PRN Reason: Venipuncture x 1 Dose Magnesium Oxide (Magnesium Oxide 400 Mg Tablet) 200 mg PO DAILY [facility] Stop: 09/09/24 08:59 Last Admin: 09/22/23 08:55 Dose: 200 mg Metoprolol Succinate (Metoprolol Succinate 50 Mg Tab.Er.24h) 50 mg PO QHS [facility] Stop: 09/07/24 21:59 Last Admin: 09/21/23 21:43 Dose: Not Given Morphine Sulfate (Morphine Sulfate 2 Mg/Ml Vial) 1 mg IV-PUSH Q4H PRN PRN Reason: Pain Scale 7 - 10 Last Admin: 09/18/23 21:44 Dose: 1 mg Multi-Ingredient Mouthwash/Gargle (Magic Mouthwash With Lidocaine) 5 ml PO [id number] PRN Reason: Mouth Pain Stop: 09/15/24 21:59 Last Admin: 09/22/23 09:48 Dose: 5 ml Multivitamins (Multivitamin 1 Tab Tablet) 1 tab PO DAILY [facility] Stop: 09/08/24 08:59 Last Admin: 09/22/23 08:55 Dose: 1 tab Mycophenolate Sodium (Mycophenolate Sodium 180 Mg Tablet. *Nf*) 720 mg PO DAILY [facility] Stop: 09/08/24 11:29 Last Admin: 09/22/23 09:47 Dose: 720 mg Nicotine (Nicotine Patch 21 Mg/24hr 1 Each Patch.Td24) 1 each TRANSDERML DAILY PRN PRN Reason: Nicotine Cravings Stop: 10/27/23 09:01 Last Admin: 09/21/23 20:22 Dose: 1 each Nystatin (Nystatin Susp 500,000 Unit/5 Ml Udc) 400,000 unit PO TID [facility] Stop: 09/15/24 21:59 Last Admin: 09/22/23 08:57 Dose: 400,000 unit Ondansetron HCl (Ondansetron 4 Mg/2 Ml Vial) 4 mg IV-PUSH Q6H PRN PRN Reason: Nausea And Vomiting Stop: 09/07/24 15:48 Last Admin: 09/11/23 14:02 Dose: 4 mg Oxycodone/Acetaminophen (Oxycodone/Acetaminophen 5-325 Mg Tablet) 1 tab PO Q4H PRN PRN Reason: Pain Last Admin: 09/22/23 09:47 Dose: 1 tab Pantoprazole Sodium (Pantoprazole 40 Mg Tablet.Dr) 40 mg PO DAILY [facility] Stop: 09/11/24 08:59 Last Admin: 09/22/23 08:55 Dose: 40 mg Potassium Chloride (Potassium Chloride Er 20 Meq Tab.Er.Prt) 40 meq PO DAILY PRN PRN Reason: Hypokalemia Stop: 09/07/24 15:48 Last Admin: 09/20/23 13:51 Dose: 40 meq Sodium Chloride (Sodium Chloride 0.9 % 10 Ml Syringe) 0 ml IV-PUSH PRN PRN PRN Reason: Flush Stop: 09/07/24 09:51 Last Admin: 09/18/23 10:14 Dose: 40 ml Sodium Chloride (Sodium Chloride 0.9 % 10 Ml Vial.Pf) 0 ml IV PRN PRN PRN Reason: ATIVAN DILUTION Stop: 09/07/24 19:07 Sodium Chloride (Sodium Chloride 0.9 % 10 Ml Syringe) 0 ml IV-PUSH PRN PRN PRN Reason: Flush Stop: 09/08/24 09:07 Last Admin: 09/20/23 09:43 Dose: 40 ml Thiamine HCl (Thiamine 100 Mg Tablet) 100 mg PO BID SERENA Stop: 09/07/24 20:59 Last Admin: 09/22/23 08:55 Dose: 100 mg Allergies fish oil Allergy (Unknown, Verified 09/17/23 15:25) Unknown Reaction Penicillins Allergy (Unknown, Verified 09/17/23 15:25) Unknown Reaction Sulfa (Sulfonamide Antibiotics) Allergy (Verified 09/17/23 15:25) Hives sulfamethoxazole [From Bactrim] Allergy (Verified 09/17/23 15:25) Hives trimethoprim [From Bactrim] Allergy (Verified 09/17/23 15:25) Hives Results - Nephrology Labs 09/22/23 04:32 09/22/23 04:32 Labs: 09/22/23 04:32 BUN 11 Creatinine 5.33 H D Albumin 2.2 L Radiology Impressions Impressions - last 24 hours: Any impression(s) listed above is documentation that was entered by the reading physician into a diagnostic report(s) for Winnie Cai. I have reviewed the report(s) and am incorporating any findings in the treatment plan of this patient where applicable. A&P - Nephrology Assessment/Plan (1) ESRD (end stage renal disease) on dialysis: Plan: Patient has ESRD related to combination of hepatorenal syndrome and cyclosporine toxicity. Patient had REED at the time of liver transplant as well and she did require short period of hemodialysis. Patient is back on dialysis since 05/04/2021. She was switched to IHD from PD on 09/07 after she fell and fractured her right arm. (2) History of peritoneal dialysis: Plan: * PD catheter was removed on 09/07 as it was broken and not usable. Patient also not able to do PD related to right arm fracture. * PD catheter tip culture is negative (3) History of shoulder fracture: Plan: Patient has right humerus fracture s/p fall after she tripped at home. (4) Anemia of renal disease: Assessment/Problem Details: Hemoglobin below the goal. She was transfused 1 unit of PRBC. (5) Liver transplant status: Plan: Patient status post liver transplant at [facility] on October 2014. She has mild elevated AST however ALT and bilirubin are normal. There is question that the patient still drinking vodka however is not confirmed. INR is elevated. Plan * No need for hemodialysis session today. Next hemodialysis session will be tomorrow * Continue Aranesp 60 mcg and Ferrlecit 62.5 mg weekly with dialysis. She has adequate iron stores. * Patient on oral vancomycin for C. difficile colitis. * Continue current liver transplant medications including mycophenolate 720 mg p.o. daily and cyclosporine 75 mg p.o. daily. * Monitor daily intake and output, renal panel and CBC to adjust medications, dialysis prescription and blood transfusion for hemoglobin below 7 g/dL Documented By: Pedro Floyd MD 09/22/23 114 Signed By: <Electronically signed by Pedro Floyd MD> 09/22/23 1148 [facility] Work Phone: [phone] 182-454304-28-2024 Progress note Author Tani Meehan [facility] September 21, 2023 4:55pm Note Date/Time September 21, 2023 4:[address] [facility] [address] [place] [address] Hospitalist Progress Note Signed Patient: Winnie Cai MR#: [id number] : 1985 Acct:[id number] Age/Sex: 38 / F Adm Date: 4 Loc: Room: [address] [place] [address] Type: ADM IN Attending Dr: Tani Meehan MD Copies to: ~ Date of Service: 09/21/2023 Subjective Subjective Narrative: No acute events noted overnight. Patient has been moving better and does still have oral pain but notes that she is trying to eat more and more. Exam Physical Exam Vital Signs: Temp Pulse Resp BP Pulse Ox O2 Del Method O2 Flow Rate 98.0 F 80 18 101/57 L 97 Room Air 6 09/21/23 15:13 09/21/23 15:13 09/21/23 15:13 09/21/23 15:13 09/21/23 15:13 09/21/23 15:13 09/08/23 19:23 Narrative: Constitutional: Tired appearing, middle-aged WF, resting in bed in mild pain dueto right upper extremity injury HEENT: Dry mucous membranes Cardiovascular: RRR, no M/R/G, normal S1 and S2, no JVD Respiratory: Lungs clear to auscultation bilaterally, no wheezes, rales or rhonchi GI: Soft, NTND, normoactive bowel sounds : Deferred Neuro: AAO x3, no focal deficits. CN III-XII grossly intact, Strength 5/5 throughout Extremities: No clubbing, cyanosis. RUE edematous, in sling on my assessment. Very tender throughout the proximal portion of the right arm. Very limited range of motion secondary to pain. Psych: Patient calm, cooperative and conversant Objective Lab Results 09/21/23 05:12 09/21/23 05:12 Meds Allergies and Active Meds Allergies fish oil Allergy (Unknown, Verified 09/17/23 15:25) Unknown Reaction Penicillins Allergy (Unknown, Verified 09/17/23 15:25) Unknown Reaction Sulfa (Sulfonamide Antibiotics) Allergy (Verified 09/17/23 15:25) Hives sulfamethoxazole [From Bactrim] Allergy (Verified 09/17/23 15:25) Hives trimethoprim [From Bactrim] Allergy (Verified 09/17/23 15:25) Hives Active Meds: Active Medications Generic Name Dose Route Start Last Admin Trade Name Freq PRN Reason Stop Dose Admin Calcium Acetate 667 mg 09/09/23 12:00 09/21/23 11:37 Calcium Acetate 667 Mg Capsule PO 09/08/24 11:59 667 mg TID.WITH.MEALS SERENA Administration Cyclosporine 75 mg 09/09/23 11:30 09/21/23 08:32 Cyclosporine Modified 25 Mg Capsule PO 09/08/24 11:29 75 mg DAILY SERENA Administration Darbepoetin Mariano 60 mcg 09/11/23 09:30 09/18/23 10:12 Darbepoetin Mariano In Polysorbat 60 Mcg/Ml Vial IV-PUSH 09/10/24 09:29 60 mcg Th@0900 SERENA Administration Protocol Dextrose 0 gm 09/08/23 17:36 09/08/23 18:00 Dextrose 50% In Water 25 Gm/50 Ml Syringe IV-PUSH 09/07/24 17:35 25 gm PRN PRN Administration Hypoglycemia Escitalopram Oxalate 15 mg 09/09/23 11:30 09/21/23 08:30 Escitalopram 5 Mg Tablet PO 09/08/24 11:29 15 mg DAILY SERENA Administration Ferric Sodium Gluconate Complex 62.5 mg 09/11/23 09:30 09/18/23 10:13 Sodium Ferric Gluconat/Sucrose 62.5 Mg/5 Ml Vial IV-PUSH 09/10/24 09:29 62.5 mg Th@0900 SERENA Administration Folic Acid 5 mg 09/12/23 09:00 09/21/23 08:31 Folic Acid 1 Mg Tablet PO 09/11/24 08:59 5 mg DAILY SERE[facility] Administration Heparin Sodium (Porcine) 4,100 unit 09/16/23 09:18 09/20/23 09:42 Heparin 10,000 Unit/10 Ml Vial IV 09/15/24 09:17 4,100 unit PRN PRN Administration Dialysis Heparin Sodium (Porcine) 2,000 unit 09/18/23 12:50 09/20/23 09:42 Heparin 10,000 Unit/10 Ml Vial IV 09/17/24 12:49 2,000 unit PRN PRN Administration Dialysis Sodium Chloride 1,000 mls @ 0 mls/hr 09/09/23 09:08 09/20/23 09:44 0.9% Sodium Chloride 1,000 Ml MISCELLANE 09/08/24 09:07 Infused .Q0M PRN Infusion Dialysis As Directed Levothyroxine Sodium 75 mcg 09/09/23 11:00 09/21/23 06:52 Levothyroxine 75 Mcg Tablet PO 09/08/24 10:59 75 mcg DAILY@0630 [facility] Administration Lidocaine HCl 0.1 ml 09/16/23 05:39 Lidocaine 1% 50 Ml Vial INTRADERMA PREOP PRN Venipuncture x 1 Dose Magnesium Oxide 200 mg 09/10/23 09:00 09/21/23 08:29 Magnesium Oxide 400 Mg Tablet PO 09/09/24 08:59 200 mg DAILY SERE[facility] Administration Metoprolol Succinate 50 mg 09/08/23 22:00 09/20/23 21:44 Metoprolol Succinate 50 Mg Tab.Er.24h PO 09/07/24 21:59 50 mg QHS SERENA Administration Morphine Sulfate 1 mg 09/12/23 19:31 09/18/23 21:44 Morphine Sulfate 2 Mg/Ml Vial IV-PUSH 1 mg Q4H PRN Administration Pain Scale 7 - 10 Multi-Ingredient Mouthwash/Gargle 5 ml 09/16/23 18:52 09/21/23 12:34 Magic Mouthwash With Lidocaine PO 09/15/24 21:59 5 ml Q4HR PRN Administration Mouth Pain Multivitamins 1 tab 09/09/23 09:00 09/21/23 08:31 Multivitamin 1 Tab Tablet PO 09/08/24 08:59 1 tab DAILY SERENA Administration Mycophenolate Sodium 720 mg 09/09/23 11:30 09/21/23 08:31 Mycophenolate Sodium 180 Mg Tablet. *Nf* PO 09/08/24 11:29 720 mg DAILY SERENA Administration Nicotine 1 each 09/15/23 15:09 09/20/23 20:22 Nicotine Patch 21 Mg/24hr 1 Each Patch.Td24 TRANSDERML 10/27/23 09:01 1 each DAILY PRN Administration Nicotine Cravings Nystatin 400,000 unit 09/16/23 22:00 09/21/23 15:22 Nystatin Susp 500,000 Unit/5 Ml Udc PO 09/15/24 21:59 400,000 unit TID SERENA Administration Ondansetron HCl 4 mg 09/08/23 15:49 09/11/23 14:02 Ondansetron 4 Mg/2 Ml Vial IV-PUSH 09/07/24 15:48 4 mg Q6H PRN Administration Nausea And Vomiting Oxycodone/Acetaminophen 1 tab 09/19/23 04:05 09/21/23 15:22 Oxycodone/Acetaminophen 5-325 Mg Tablet PO 1 tab Q4H PRN Administration Pain Pantoprazole Sodium 40 mg 09/12/23 09:00 09/21/23 08:30 Pantoprazole 40 Mg Tablet.Dr PO 09/11/24 08:59 40 mg DAILY SERENA Administration Potassium Chloride 40 meq 09/08/23 15:49 09/20/23 13:51 Potassium Chloride Er 20 Meq Tab.Er.Prt PO 09/07/24 15:48 40 meq DAILY PRN Administration Hypokalemia Sodium Chloride 0 ml 09/08/23 09:52 09/18/23 10:14 Sodium Chloride 0.9 % 10 Ml Syringe IV-PUSH 09/07/24 09:51 40 ml PRN PRN Administration Flush Sodium Chloride 0 ml 09/08/23 19:08 Sodium Chloride 0.9 % 10 Ml Vial.Pf IV 09/07/24 19:07 PRN PRN ATIVAN DILUTION Sodium Chloride 0 ml 09/09/23 09:08 09/20/23 09:43 Sodium Chloride 0.9 % 10 Ml Syringe IV-PUSH 09/08/24 09:07 40 ml PRN PRN Administration Flush Thiamine HCl 100 mg 09/08/23 21:00 09/21/23 08:31 Thiamine 100 Mg Tablet PO 09/07/24 20:59 100 mg BID SERENA Administration A&P - Hospitalist Assessment/Plan (1) Dehydration: (2) Rhabdomyolysis: (3) Anemia of renal disease: (4) Liver transplant status: (5) Peritoneal dialysis catheter mechanical complication: Plan Assessment and Plan: 38F with PMH of HTN, history of Alcoholic liver failure (s/p transplant at [facility] 2014), 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 Diff Infection Diarrhea resolved. Remains afebrile, hemodynamically stable, leukocytosis still present but trend is lowering. CT abd shows diffuse wall thickening within the colon with accompanying pericolonic fat stranding. This is consistent with colitis which may be infectious or inflammatory. Also considered PD catheter malfunction as source of sepsis, but blood culture as well as catheter tip culture is negative She was started empirically on broad spectrum IV antibiotics with Invanz (PCN allergy) and Vancomycin IV initially. C.diff came back positive which explained her leukocytosis. Given no sign of other infection and negative blood Cx broad spectrum IV was discontinued -Continue vancomycin PO [id number], day 10 Acute on Chronic Anemia Chronic Anemia of CKD Hemoglobin improved and has been stable. No signs of bleeding at this time. no overt bleeding. she follows up for anemia with [facility] Dm. GI evaluated the patient and advised that her anemia is due to ESRD, with no endoscopic evaluation advised at this time due to lack of evidence of signs of overt bleeding. -Patient has received 2 units packed red blood cells since presentation -Monitor CBC closely Folate Deficiency Folate low 5.7 she was started on supplement ESRD PD cath dysfunction Severe Hyponatremia -improved Nephrology was consulted for the management of dialysis and ESRD complication, recommendation appreciated. PD cath removed by General surgery and temporary R groin HD catheter placed by pulmonary -now removed -Underwent tunneled HD cath, HD schedule per nephrology Liver Transplant She had liver transplant at [facility] back in 2014 due to Alcoholic liver failure. family said she may be she has not been taking her antirejection mediation. there is a high possibility of noncompliance. -Continue home anti-rejection medications Acute Metabolic Encephalopathy Mental status now close to baseline. Likely multifactorial in the setting of possible uremic encephalopathy, alcohol withdrawal, acute C. difficile infection. Ammonia level also elevated, but low suspicion that etiology is hepatic in origin. -Neurology recommendation appreciated; further workup per their recommendations -Treat C. difficile infection, maintain on HD schedule, hold on lactulose administration Elevated Troponin In the setting of poor renal clearance, sepsis from C. difficile. Patient has no cardiorespiratory complaints. No EKG changes present Recent right traumatic proximal humerus fracture There is edema in her R arm and with some ecchymosis. there is no warmth, tenderness (lower form the shoulder) or erythema. Patient does continue to complain of pain. Seen on x-ray at [facility] on 09/01/2023. Orthopedic consult for possiblelate complication of humerus fracture. Discussed surgical versus conservative options with family. surgical intervention was not recommended, and she is to follow as outpatient. Due to weak pulse in her right arm PVR UE was done which was Normal -Nonweightbearing right upper extremity and sling for comfort -Pain control with morphine, Percocet-will be cautious with these medications given patient's liver and kidney issues Probable EtOH Abuse Disorder/withdrawal There is conflicting information about her drinking habit. The family doesn't know if she drinks at home. the patient has vague answers about the last time she had a drink. she reported to RN on admission that she still drinks. Blood alcohol concentration is not detected on admission -Can discontinue CIWA protocol given that patient is likely out of the withdrawal window and mental status has improved -Multivitamin/folic acid/Thiamine -Symptom control and supportive care Sore Throat/Oral Candidiasis There was oral white Mucosal Lesions on her tongue which is slowly getting better local antifungal treatment w/nystatin Hypothyroidism TSH wnl; Synthroid was continued Poor Appetite I encouraged oral intake diet supplements dietitian input noted Rhabdomyolysis - resolved She was given IVF. CPK improved to normal Physical Deconditioning Secondary to multiple acute medical issues. Will need to increase work with PT/OT this week -Plan for SNF on discharge Chronic diseases: Unless mentioned Above, Essential home medications have been continued. DVT Px: SCDs Disposition: SNF on discharge, increased work with PT/OT Plan of care Discussed with: the medical team, the patient, patient's grandmother Documented By: Tani Meehan MD [id number] Signed By: <Electronically signed by Tani Meehan MD> 09/21/23 39[address] [facility] Work Phone: [phone]) 746-551504-28-2024 Progress note Author Pedro Floyd [facility] September 21, 2023 11:32am Note Date/Time September 21, 2023 11: 32am [facility] [address] [place], [place] [id number] Nephrology Progress Note Signed Patient: Winnie Cai MR#: [id number] : 1985 Acct:[id number] Age/Sex: 38 / F Adm Date: 4 Loc: 4 Room: 8V4924-2 Type: ADM IN Attending Dr: Tani Meehan MD Copies to: ~ Date of Service: 09/21/2023 Subjective Subjective Narrative: Ms. 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 PD was started at [place] however he moved to [place] closer to her home. She has a history of liver transplant due to alcoholic liver cirrhosis at [facility] 2014. She did require hemodialysis in the perioperative period and later on was transitioned to PD. Patient has been noncompliant with peritoneal dialysis and missing multiple treatments at home per her records. Patient was brought to the ER on 09/07 as she has been significantly weak and dehydrated. Patient sustained a fall after she tripped last week and went to [facility] ER but she was found to have fracture of the right head of humerus. Right hand currently in sling dressing she is supposed to see orthopedics as outpatient. Patient was not able to do peritoneal dialysis at home since she has limited mobility of the right arm. Patient reported that she has not been eating or drinking over the last few days. Evaluation in the ER showed large hematoma around the shoulder and the chest. She was tachycardic 111 however blood pressure 115/73. No fever or chills. WBCs count was found to be [id number]. Patient was started empirically on vancomycin and Zosyn after 2 sets ofblood culture was obtained. Hemoglobin was low 7.3 compared to 10 g/dL on . She has mildly elevated INR 1.4 despite she is not on any blood thinners medication. There is a report by nursing staff that patient still drinking vodka however it does not confirm. Ethyl alcohol level on admission was less than 10 mg/dL. Interval history: Patient was seen and examined and complaining of pain in her mouth due to the thrush. Right IJ tunneled catheter was replaced September 15. Patient continues to complain of right arm pain due to humerus fracture. Right arm is in splint Patient remains on oral vancomycin for C. difficile colitis. Diarrhea has resolved. Exam Physical Exam Vital Signs: Temp Pulse Resp BP Pulse Ox O2 Del Method O2 Flow Rate 98.0 F 78 18 106/68 97 Room Air 6 09/21/23 11:00 09/21/23 11:00 09/21/23 11:00 09/21/23 11:00 09/21/23 11:00 09/21/23 11:00 09/08/23 19:23 Narrative: General: Appears comfortable and not in distress Heart: S1-S2, no rub Lung: Bilateral air entry, no wheezing or crackles Abdomen: Soft, positive bowel sounds Extremities: No edema, no cyanosis Head: Atraumatic, normocephalic Ear: No gross hearing Deficit or external ear redness Eyes: No pallor or redness Neck: No JVD or visible mass Skin: No rashes , warm to touch 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,Alert, following simple command Psychiatric: Cooperative, normal mood and affect Objective Intake and Output I&O: Intake & Output 09/18/23 09/19/23 09/20/23 09/21/23 23:59 23:59 23:59 23:59 Intake Total 1400 / 1400 1150 / 1150 1200 / 1200 200 / 200 Output Total 1273 / 1273 1500 / 1500 Balance 127 / 127 1150 / 1150 -300 / -300 200 / 200 Weight 63.6 kg 64.7 kg 64.6 kg 64.9 kg Meds and Allergies Meds: Active Medications Calcium Acetate (Calcium Acetate 667 Mg Capsule) 667 mg PO TID.WITH.MEALS [facility] Stop: 09/08/24 11:59 Last Admin: 09/21/23 08:29 Dose: 667 mg Cyclosporine (Cyclosporine Modified 25 Mg Capsule) 75 mg PO DAILY [facility] Stop: 09/08/24 11:29 Last Admin: 09/21/23 08:32 Dose: 75 mg Darbepoetin Mariano (Darbepoetin Mariano In Polysorbat 60 Mcg/Ml Vial) 60 mcg IV-PUSHTh@0900 [facility]; Protocol Stop: 09/10/24 09:29 Last Admin: 09/18/23 10:12 Dose: 60 mcg Dextrose (Dextrose 50% In Water 25 Gm/50 Ml Syringe) 0 gm IV-PUSH PRN PRN PRN Reason: Hypoglycemia Stop: 09/07/24 17:35 Last Admin: 09/08/23 18:00 Dose: 25 gm Escitalopram Oxalate (Escitalopram 5 Mg Tablet) 15 mg PO DAILY SERENA Stop: 09/08/24 11:29 Last Admin: 09/21/23 08:30 Dose: 15 mg Ferric Sodium Gluconate Complex (Sodium Ferric Gluconat/Sucrose 62.5 Mg/5 Ml Vial) 62.5 mg IV-PUSH Th@0900 SERENA Stop: 09/10/24 09:29 Last Admin: 09/18/23 10:13 Dose: 62.5 mg Folic Acid (Folic Acid 1 Mg Tablet) 5 mg PO DAILY SERENA Stop: 09/11/24 08:59 Last Admin: 09/21/23 08:31 Dose: 5 mg Heparin Sodium (Porcine) (Heparin 10,000 Unit/10 Ml Vial) 4,100 unit IV PRN PRN PRN Reason: Dialysis Stop: 09/15/24 09:17 Last Admin: 09/20/23 09:42 Dose: 4,100 unit Heparin Sodium (Porcine) (Heparin 10,000 Unit/10 Ml Vial) 2,000 unit IV PRN PRN PRN Reason: Dialysis Stop: 09/17/24 12:49 Last Admin: 09/20/23 09:42 Dose: 2,000 unit Sodium Chloride (0.9% Sodium Chloride 1,000 Ml) 1,000 mls @ 0 mls/hr MISCELLANE.Q0M PRN PRN Reason: Dialysis Stop: 09/08/24 09:07 Last Infusion: 09/20/23 09:44 Dose: Infused Levothyroxine Sodium (Levothyroxine 75 Mcg Tablet) 75 mcg PO DAILY@0630 SERE[facility] Stop: 09/08/24 10:59 Last Admin: 09/21/23 06:52 Dose: 75 mcg Lidocaine HCl (Lidocaine 1% 50 Ml Vial) 0.1 ml INTRADERMA PREOP PRN PRN Reason: Venipuncture x 1 Dose Magnesium Oxide (Magnesium Oxide 400 Mg Tablet) 200 mg PO DAILY SERENA Stop: 09/09/24 08:59 Last Admin: 09/21/23 08:29 Dose: 200 mg Metoprolol Succinate (Metoprolol Succinate 50 Mg Tab.Er.24h) 50 mg PO QHS SERENA Stop: 09/07/24 21:59 Last Admin: 09/20/23 21:44 Dose: 50 mg Morphine Sulfate (Morphine Sulfate 2 Mg/Ml Vial) 1 mg IV-PUSH Q4H PRN PRN Reason: Pain Scale 7 - 10 Last Admin: 09/18/23 21:44 Dose: 1 mg Multi-Ingredient Mouthwash/Gargle (Magic Mouthwash With Lidocaine) 5 ml PO [id number] PRN Reason: Mouth Pain Stop: 09/15/24 21:59 Last Admin: 09/21/23 08:26 Dose: 5 ml Multivitamins (Multivitamin 1 Tab Tablet) 1 tab PO DAILY SERENA Stop: 09/08/24 08:59 Last Admin: 09/21/23 08:31 Dose: 1 tab Mycophenolate Sodium (Mycophenolate Sodium 180 Mg Tablet. *Nf*) 720 mg PO DAILY SERENA Stop: 09/08/24 11:29 Last Admin: 09/21/23 08:31 Dose: 720 mg Nicotine (Nicotine Patch 21 Mg/24hr 1 Each Patch.Td24) 1 each TRANSDERML DAILY PRN PRN Reason: Nicotine Cravings Stop: 10/27/23 09:01 Last Admin: 09/20/23 20:22 Dose: 1 each Nystatin (Nystatin Susp 500,000 Unit/5 Ml Udc) 400,000 unit PO TID SERENA Stop: 09/15/24 21:59 Last Admin: 09/21/23 08:31 Dose: 400,000 unit Ondansetron HCl (Ondansetron 4 Mg/2 Ml Vial) 4 mg IV-PUSH Q6H PRN PRN Reason: Nausea And Vomiting Stop: 09/07/24 15:48 Last Admin: 09/11/23 14:02 Dose: 4 mg Oxycodone/Acetaminophen (Oxycodone/Acetaminophen 5-325 Mg Tablet) 1 tab PO Q4H PRN PRN Reason: Pain Last Admin: 09/21/23 09:00 Dose: 1 tab Pantoprazole Sodium (Pantoprazole 40 Mg Tablet.) 40 mg PO DAILY SERENA Stop: 09/11/24 08:59 Last Admin: 09/21/23 08:30 Dose: 40 mg Potassium Chloride (Potassium Chloride Er 20 Meq Tab.Er.Prt) 40 meq PO DAILY PRN PRN Reason: Hypokalemia Stop: 09/07/24 15:48 Last Admin: 09/20/23 13:51 Dose: 40 meq Sodium Chloride (Sodium Chloride 0.9 % 10 Ml Syringe) 0 ml IV-PUSH PRN PRN PRN Reason: Flush Stop: 09/07/24 09:51 Last Admin: 09/18/23 10:14 Dose: 40 ml Sodium Chloride (Sodium Chloride 0.9 % 10 Ml Vial.Pf) 0 ml IV PRN PRN PRN Reason: ATIVAN DILUTION Stop: 09/07/24 19:07 Sodium Chloride (Sodium Chloride 0.9 % 10 Ml Syringe) 0 ml IV-PUSH PRN PRN PRN Reason: Flush Stop: 09/08/24 09:07 Last Admin: 09/20/23 09:43 Dose: 40 ml Thiamine HCl (Thiamine 100 Mg Tablet) 100 mg PO BID SERENA Stop: 09/07/24 20:59 Last Admin: 09/21/23 08:31 Dose: 100 mg Allergies fish oil Allergy (Unknown, Verified 09/17/23 15:25) Unknown Reaction Penicillins Allergy (Unknown, Verified 09/17/23 15:25) Unknown Reaction Sulfa (Sulfonamide Antibiotics) Allergy (Verified 09/17/23 15:25) Hives sulfamethoxazole [From Bactrim] Allergy (Verified 09/17/23 15:25) Hives trimethoprim [From Bactrim] Allergy (Verified 09/17/23 15:25) Hives Results - Nephrology Labs 09/21/23 05:12 09/21/23 05:12 Labs: 09/21/23 05:12 BUN 8 Creatinine 3.97 H D Albumin 2.0 L Radiology Impressions Impressions - last 24 hours: Any impression(s) listed above is documentation that was entered by the reading physician into a diagnostic report(s) for Winnie Cai. I have reviewed the report(s) and am incorporating any findings in the treatment plan of this patient where applicable. A&P - Nephrology Assessment/Plan (1) ESRD (end stage renal disease) on dialysis: Plan: Patient has ESRD related to combination of hepatorenal syndrome and cyclosporine toxicity. Patient had REED at the time of liver transplant as well and she did require short period of hemodialysis. Patient is back on dialysis since 05/04/2021. She was switched to IHD from PD on 09/07 after she fell and fractured her right arm. (2) History of peritoneal dialysis: Plan: * PD catheter was removed on 09/07 as it was broken and not usable. Patient also not able to do PD related to right arm fracture. * PD catheter tip culture is negative (3) History of shoulder fracture: Plan: Patient has right humerus fracture s/p fall after she tripped at home. (4) Anemia of renal disease: Assessment/Problem Details: Hemoglobin below the goal. She was transfused 1 unit of PRBC. (5) Liver transplant status: Plan: Patient status post liver transplant at [facility] on October 2014. She has mild elevated AST however ALT and bilirubin are normal. There is question that the patient still drinking vodka however is not confirmed. INR is elevated. Plan * No need for hemodialysis session today. Next hemodialysis session will be tomorrow * Continue Aranesp 60 mcg and Ferrlecit 62.5 mg weekly with dialysis. She has adequate iron stores. * Patient on oral vancomycin for C. difficile colitis. * Continue current liver transplant medications including mycophenolate 720 mg p.o. daily and cyclosporine 75 mg p.o. daily. * Monitor daily intake and output, renal panel and CBC to adjust medications, dialysis prescription and blood transfusion for hemoglobin below 7 g/dL Documented By: Pedro Floyd MD 09/21/23 1128 Signed By: <Electronically signed by Pedro Floyd MD> 09/21/23 1132 [facility] Work Phone: [phone] 605-434204-27-2024 Progress note Author Tani Meehan [facility] September 20, 2023 6:15pm Note Date/Time September 20, 2023 6:[address] [facility] [address] [place] [address] Hospitalist Progress Note Signed Patient: Winnie Cai MR#: [id number] : 1985 Acct:[id number] Age/Sex: 38 / F Adm Date: 4 Loc: 4P Room: [address] [place] [address] Type: ADM IN Attending Dr: Tani Meehan MD Copies to: ~ Date of Service: 09/20/2023 Subjective Subjective Narrative: No acute events noted overnight. Patient tolerating hemodialysis well. Mouth pain is moderately improving. Exam Physical Exam Vital Signs: Temp Pulse Resp BP Pulse Ox O2 Del Method O2 Flow Rate 98.2 F 82 18 99/65 L 97 Room Air 6 09/20/23 15:59 09/20/23 15:59 09/20/23 15:59 09/20/23 15:59 09/20/23 15:59 09/20/23 15:59 09/08/23 19:23 Narrative: Constitutional: Tired appearing, middle-aged WF, resting in bed in mild pain dueto right upper extremity injury HEENT: Dry mucous membranes Cardiovascular: RRR, no M/R/G, normal S1 and S2, no JVD Respiratory: Lungs clear to auscultation bilaterally, no wheezes, rales or rhonchi GI: Soft, NTND, normoactive bowel sounds : Deferred Neuro: AAO x3, no focal deficits. CN III-XII grossly intact, Strength 5/5 throughout Extremities: No clubbing, cyanosis. RUE edematous, in sling on my assessment. Very tender throughout the proximal portion of the right arm. Very limited range of motion secondary to pain. Psych: Patient calm, cooperative and conversant Objective Lab Results 09/20/23 04:58 09/20/23 04:58 Meds Allergies and Active Meds Allergies fish oil Allergy (Unknown, Verified 09/17/23 15:25) Unknown Reaction Penicillins Allergy (Unknown, Verified 09/17/23 15:25) Unknown Reaction Sulfa (Sulfonamide Antibiotics) Allergy (Verified 09/17/23 15:25) Hives sulfamethoxazole [From Bactrim] Allergy (Verified 09/17/23 15:25) Hives trimethoprim [From Bactrim] Allergy (Verified 09/17/23 15:25) Hives Active Meds: Active Medications Generic Name Dose Route Start Last Admin Trade Name Freq PRN Reason Stop Dose Admin Calcium Acetate 667 mg 09/09/23 12:00 09/20/23 13:49 Calcium Acetate 667 Mg Capsule PO 09/08/24 11:59 Not Given TID.WITH.MEALS SERENA Cyclosporine 75 mg 09/09/23 11:30 09/20/23 13:50 Cyclosporine Modified 25 Mg Capsule PO 09/08/24 11:29 75 mg DAILY SERENA Administration Darbepoetin Mariano 60 mcg 09/11/23 09:30 09/18/23 10:12 Darbepoetin Mariano In Polysorbat 60 Mcg/Ml Vial IV-PUSH 09/10/24 09:29 60 mcg Th@0900 SERENA Administration Protocol Dextrose 0 gm 09/08/23 17:36 09/08/23 18:00 Dextrose 50% In Water 25 Gm/50 Ml Syringe IV-PUSH 09/07/24 17:35 25 gm PRN PRN Administration Hypoglycemia Escitalopram Oxalate 15 mg 09/09/23 11:30 09/20/23 13:49 Escitalopram 5 Mg Tablet PO 09/08/24 11:29 15 mg DAILY SERENA Administration Ferric Sodium Gluconate Complex 62.5 mg 09/11/23 09:30 09/18/23 10:13 Sodium Ferric Gluconat/Sucrose 62.5 Mg/5 Ml Vial IV-PUSH 09/10/24 09:29 62.5 mg Th@0900 SERENA Administration Folic Acid 5 mg 09/12/23 09:00 09/20/23 13:50 Folic Acid 1 Mg Tablet PO 09/11/24 08:59 5 mg DAILY SERENA Administration Heparin Sodium (Porcine) 4,100 unit 09/16/23 09:18 09/20/23 09:42 Heparin 10,000 Unit/10 Ml Vial IV 09/15/24 09:17 4,100 unit PRN PRN Administration Dialysis Heparin Sodium (Porcine) 2,000 unit 09/18/23 12:50 09/20/23 09:42 Heparin 10,000 Unit/10 Ml Vial IV 09/17/24 12:49 2,000 unit PRN PRN Administration Dialysis Sodium Chloride 1,000 mls @ 0 mls/hr 09/09/23 09:08 09/20/23 09:44 0.9% Sodium Chloride 1,000 Ml MISCELLANE 09/08/24 09:07 Infused .Q0M PRN Infusion Dialysis As Directed Levothyroxine Sodium 75 mcg 09/09/23 11:00 09/20/23 06:36 Levothyroxine 75 Mcg Tablet PO 09/08/24 10:59 75 mcg DAILY@0630 SERENA Administration Lidocaine HCl 0.1 ml 09/16/23 05:39 Lidocaine 1% 50 Ml Vial INTRADERMA PREOP PRN Venipuncture x 1 Dose Magnesium Oxide 200 mg 09/10/23 09:00 09/20/23 13:49 Magnesium Oxide 400 Mg Tablet PO 09/09/24 08:59 200 mg DAILY SERENA Administration Metoprolol Succinate 50 mg 09/08/23 22:00 09/19/23 21:54 Metoprolol Succinate 50 Mg Tab.Er.24h PO 09/07/24 21:59 50 mg QHS SERENA Administration Morphine Sulfate 1 mg 09/12/23 19:31 09/18/23 21:44 Morphine Sulfate 2 Mg/Ml Vial IV-PUSH 1 mg Q4H PRN Administration Pain Scale 7 - 10 Multi-Ingredient Mouthwash/Gargle 5 ml 09/16/23 18:52 09/20/23 15:29 Magic Mouthwash With Lidocaine PO 09/15/24 21:59 5 ml Q4HR PRN Administration Mouth Pain Multivitamins 1 tab 09/09/23 09:00 09/20/23 13:49 Multivitamin 1 Tab Tablet PO 09/08/24 08:59 1 tab DAILY SERENA Administration Mycophenolate Sodium 720 mg 09/09/23 11:30 09/20/23 13:50 Mycophenolate Sodium 180 Mg Tablet. *Nf* PO 09/08/24 11:29 720 mg DAILY SERENA Administration Nicotine 1 each 09/15/23 15:09 Nicotine Patch 21 Mg/24hr 1 Each Patch.Td24 TRANSDERML 10/27/23 09:01 DAILY PRN Nicotine Cravings Nystatin 400,000 unit 09/16/23 22:00 09/20/23 13:50 Nystatin Susp 500,000 Unit/5 Ml Udc PO 09/15/24 21:59 400,000 unit TID SERENA Administration Ondansetron HCl 4 mg 09/08/23 15:49 09/11/23 14:02 Ondansetron 4 Mg/2 Ml Vial IV-PUSH 09/07/24 15:48 4 mg Q6H PRN Administration Nausea And Vomiting Oxycodone/Acetaminophen 1 tab 09/19/23 04:05 09/20/23 13:48 Oxycodone/Acetaminophen 5-325 Mg Tablet PO 1 tab Q4H PRN Administration Pain Pantoprazole Sodium 40 mg 09/12/23 09:00 09/20/23 13:50 Pantoprazole 40 Mg Tablet.Dr VALE 09/11/24 08:59 40 mg DAILY SERENA Administration Potassium Chloride 40 meq 09/08/23 15:49 09/20/23 13:51 Potassium Chloride Er 20 Meq Tab.Er.Prt PO 04/15/25 15:48 40 meq DAILY PRN Administration Hypokalemia Sodium Chloride 0 ml 09/08/23 09:52 09/18/23 10:14 Sodium Chloride 0.9 % 10 Ml Syringe IV-PUSH 09/07/24 09:51 40 ml PRN PRN Administration Flush Sodium Chloride 0 ml 09/08/23 19:08 Sodium Chloride 0.9 % 10 Ml Vial.Pf IV 09/07/24 19:07 PRN PRN ATIVAN DILUTION Sodium Chloride 0 ml 09/09/23 09:08 09/20/23 09:43 Sodium Chloride 0.9 % 10 Ml Syringe IV-PUSH 09/08/24 09:07 40 ml PRN PRN Administration Flush Thiamine HCl 100 mg 09/08/23 21:00 09/20/23 11:03 Thiamine 100 Mg Tablet PO 09/07/24 20:59 Not Given BID SEREAN Vancomycin HCl 125 mg 09/11/23 22:30 09/20/23 13:51 Vancomycin Liquid 15,000 Mg/300 Ml Soln.Recon PO 09/20/23 22:01 125 mg QID SERENA Administration A&P - Hospitalist Assessment/Plan (1) Dehydration: (2) Rhabdomyolysis: (3) Anemia of renal disease: (4) Liver transplant status: (5) Peritoneal dialysis catheter mechanical complication: Plan Assessment And Plan: 38F with PMH of HTN, history of Alcoholic liver failure (s/p transplant at [facility] 2014), 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 Diff Infection Diarrhea resolved. Remains afebrile, hemodynamically stable, leukocytosis still present but trend is lowering. CT abd shows diffuse wall thickening within the colon with accompanying pericolonic fat stranding. This is consistent with colitis which may be infectious or inflammatory. Also considered PD catheter malfunction as source of sepsis, but blood culture as well as catheter tip culture is negative She was started empirically on broad spectrum IV antibiotics with Invanz (PCN allergy) and Vancomycin IV initially. C.diff came back positive which explained her leukocytosis. Given no sign of other infection and negative blood Cx broad spectrum IV was discontinued -Continue vancomycin PO [id number], day 9 Acute on Chronic Anemia Chronic Anemia of CKD Hemoglobin improved and has been stable. No signs of bleeding at this time. no overt bleeding. she follows up for anemia with [place]. GI evaluated the patient and advised that her anemia is due to ESRD, with no endoscopic evaluation advised at this time due to lack of evidence of signs of overt bleeding. -Patient has received 2 units packed red blood cells since presentation -Monitor CBC closely Folate Deficiency Folate low 5.7 she was started on supplement ESRD PD cath dysfunction Severe Hyponatremia -improved Nephrology was consulted for the management of dialysis and ESRD complication, recommendation appreciated. PD cath removed by General surgery and temporary R groin HD catheter placed by pulmonary -now removed -Underwent tunneled HD cath, HD schedule per nephrology Liver Transplant She had liver transplant at [facility] back in 2014 due to Alcoholic liver failure. family said she may be she has not been taking her antirejection mediation. there is a high possibility of noncompliance. -Continue home anti-rejection medications Acute Metabolic Encephalopathy Mental status now close to baseline. Likely multifactorial in the setting of possible uremic encephalopathy, alcohol withdrawal, acute C. difficile infection. Ammonia level also elevated, but low suspicion that etiology is hepatic in origin. -Neurology recommendation appreciated; further workup per their recommendations -Treat C. difficile infection, maintain on HD schedule, hold on lactulose administration Elevated Troponin In the setting of poor renal clearance, sepsis from C. difficile. Patient has no cardiorespiratory complaints. No EKG changes present Recent right traumatic proximal humerus fracture There is edema in her R arm and with some ecchymosis. there is no warmth, tenderness (lower form the shoulder) or erythema. Patient does continue to complain of pain. Seen on x-ray at [facility] on 09/01/2023. Orthopedic consult for possiblelate complication of humerus fracture. Discussed surgical versus conservative options with family. surgical intervention was not recommended, and she is to follow as outpatient. Due to weak pulse in her right arm PVR UE was done which was Normal -Nonweightbearing right upper extremity and sling for comfort -Pain control with morphine, Percocet-will be cautious with these medications given patient's liver and kidney issues Probable EtOH Abuse Disorder/withdrawal There is conflicting information about her drinking habit. The family doesn't know if she drinks at home. the patient has vague answers about the last time she had a drink. she reported to RN on admission that she still drinks. Blood alcohol concentration is not detected on admission -Can discontinue CIWA protocol given that patient is likely out of the withdrawal window and mental status has improved -Multivitamin/folic acid/Thiamine -Symptom control and supportive care Sore Throat/Oral Candidiasis There was oral white Mucosal Lesions on her tongue which is slowly getting better local antifungal treatment w/nystatin Hypothyroidism TSH wnl; Synthroid was continued Poor Appetite I encouraged oral intake diet supplements dietitian input noted Rhabdomyolysis - resolved She was given IVF. CPK improved to normal Physical Deconditioning Secondary to multiple acute medical issues. Will need to increase work with PT/OT this week -Plan for SNF on discharge Chronic diseases: Unless mentioned Above, Essential home medications have been continued. DVT Px: SCDs Disposition: SNF on discharge, increased work with PT/OT Plan of care Discussed with: the medical team, the patient Documented By: Tani Meehan MD 4 1800 Signed By: <Electronically signed by Tani Meehan MD> 09/20/23 1815 [facility] Work Phone: [phone]) [phone] Progress note Author Tani Meehan [facility] September 19, 2023 5:28pm Note Date/Time September 19, 2023 5:[address] [facility] [address] [place] [address] Hospitalist Progress Note Signed Patient: Winnie Cai MR#: [id number] : 1985 Acct:[id number] Age/Sex: 38 / F Adm Date: 4 Loc: 4 Room: [address] [place] [address] Type: ADM IN Attending Dr: Tani Meehan MD Copies to: ~ Date of Service: 09/19/2023 Subjective Subjective Narrative: Patient seen and assessed at bedside today, with 2 family members at bedside. Patient notes that her mouth is improved today as far as pain is concerned. Herright upper extremity has decreased edema. Patient has been attempting to eat more. She does note difficulty falling asleep last night and believes she has aheadache this morning related to poor sleep. Exam Physical Exam Vital Signs: Temp Pulse Resp BP Pulse Ox O2 Del Method O2 Flow Rate 97.6 F 69 16 105/71 98 Room Air 6 09/19/23 16:00 09/19/23 16:00 09/19/23 16:00 09/19/23 16:00 09/19/23 16:00 09/19/23 16:00 09/08/23 19:23 Narrative: Constitutional: Tired appearing, middle-aged WF, resting in bed in mild pain dueto right upper extremity injury HEENT: Dry mucous membranes Cardiovascular: RRR, no M/R/G, normal S1 and S2, no JVD Respiratory: Lungs clear to auscultation bilaterally, no wheezes, rales or rhonchi GI: Soft, NTND, normoactive bowel sounds : Deferred Neuro: AAO x3, no focal deficits. CN III-XII grossly intact, Strength 5/5 throughout Extremities: No clubbing, cyanosis. RUE edematous, in sling on my assessment. Very tender throughout the proximal portion of the right arm. Very limited range of motion secondary to pain. Psych: Patient calm, cooperative and conversant Objective Lab Results 09/19/23 04:30 09/19/23 04:30 Meds Allergies and Active Meds Allergies fish oil Allergy (Unknown, Verified 09/17/23 15:25) Unknown Reaction Penicillins Allergy (Unknown, Verified 09/17/23 15:25) Unknown Reaction Sulfa (Sulfonamide Antibiotics) Allergy (Verified 09/17/23 15:25) Hives sulfamethoxazole [From Bactrim] Allergy (Verified 09/17/23 15:25) Hives trimethoprim [From Bactrim] Allergy (Verified 09/17/23 15:25) Hives Active Meds: Active Medications Generic Name Dose Route Start Last Admin Trade Name Freq PRN Reason Stop Dose Admin Calcium Acetate 667 mg 09/09/23 12:00 09/19/23 11:37 Calcium Acetate 667 Mg Capsule PO 09/08/24 11:59 667 mg TID.WITH.MEALS SERENA Administration Cyclosporine 75 mg 09/09/23 11:30 09/19/23 08:46 Cyclosporine Modified 25 Mg Capsule PO 09/08/24 11:29 75 mg DAILY SERENA Administration Darbepoetin Mariano 60 mcg 09/11/23 09:30 09/18/23 10:12 Darbepoetin Mariano In Polysorbat 60 Mcg/Ml Vial IV-PUSH 09/10/24 09:29 60 mcg Th@0900 SERENA Administration Protocol Dextrose 0 gm 09/08/23 17:36 09/08/23 18:00 Dextrose 50% In Water 25 Gm/50 Ml Syringe IV-PUSH 09/07/24 17:35 25 gm PRN PRN Administration Hypoglycemia Escitalopram Oxalate 15 mg 09/09/23 11:30 09/19/23 08:46 Escitalopram 5 Mg Tablet PO 09/08/24 11:29 15 mg DAILY SERENA Administration Ferric Sodium Gluconate Complex 62.5 mg 09/11/23 09:30 09/18/23 10:13 Sodium Ferric Gluconat/Sucrose 62.5 Mg/5 Ml Vial IV-PUSH 09/10/24 09:29 62.5 mg Th@0900 SERENA Administration Folic Acid 5 mg 09/12/23 09:00 09/19/23 08:46 Folic Acid 1 Mg Tablet PO 09/11/24 08:59 5 mg DAILY SERENA Administration Heparin Sodium (Porcine) 2,600 unit 09/11/23 14:06 09/13/23 12:07 Heparin 10,000 Unit/10 Ml Vial IV 09/10/24 14:05 2,600 unit PRN PRN Administration Dialysis Heparin Sodium (Porcine) 4,100 unit 09/16/23 09:18 09/18/23 10:13 Heparin 10,000 Unit/10 Ml Vial IV 09/15/24 09:17 4,100 unit PRN PRN Administration Dialysis Heparin Sodium (Porcine) 2,000 unit 09/18/23 12:50 Heparin 10,000 Unit/10 Ml Vial IV 09/17/24 12:49 PRN PRN Dialysis Sodium Chloride 1,000 mls @ 0 mls/hr 09/09/23 09:08 09/18/23 10:15 0.9% Sodium Chloride 1,000 Ml MISCELLANE 09/08/24 09:07 Infused .Q0M PRN Infusion Dialysis As Directed Levothyroxine Sodium 75 mcg 09/09/23 11:00 09/19/23 05:44 Levothyroxine 75 Mcg Tablet PO 09/08/24 10:59 Not Given DAILY@0630 SERENA Lidocaine HCl 0.1 ml 09/16/23 05:39 Lidocaine 1% 50 Ml Vial INTRADERMA PREOP PRN Venipuncture x 1 Dose Magnesium Oxide 200 mg 09/10/23 09:00 09/19/23 08:46 Magnesium Oxide 400 Mg Tablet PO 09/09/24 08:59 200 mg DAILY SEREAN Administration Metoprolol Succinate 50 mg 09/08/23 22:00 09/18/23 21:44 Metoprolol Succinate 50 Mg Tab.Er.24h PO 09/07/24 21:59 50 mg QHS SERENA Administration Morphine Sulfate 1 mg 09/12/23 19:31 09/18/23 21:44 Morphine Sulfate 2 Mg/Ml Vial IV-PUSH 1 mg Q4H PRN Administration Pain Scale 7 - 10 Multi-Ingredient Mouthwash/Gargle 5 ml 09/16/23 18:52 09/19/23 11:37 Magic Mouthwash With Lidocaine PO 09/15/24 21:59 5 ml Q4HR PRN Administration Mouth Pain Multivitamins 1 tab 09/09/23 09:00 09/19/23 08:46 Multivitamin 1 Tab Tablet PO 09/08/24 08:59 1 tab DAILY SERENA Administration Mycophenolate Sodium 720 mg 09/09/23 11:30 09/19/23 08:47 Mycophenolate Sodium 180 Mg Tablet. *Nf* PO 09/08/24 11:29 720 mg DAILY SERENA Administration Nicotine 1 each 09/15/23 15:09 Nicotine Patch 21 Mg/24hr 1 Each Patch.Td24 TRANSDERML 10/27/23 09:01 DAILY PRN Nicotine Cravings Nystatin 400,000 unit 09/16/23 22:00 09/19/23 15:33 Nystatin Susp 500,000 Unit/5 Ml Udc PO 09/15/24 21:59 400,000 unit TID SERENA Administration Ondansetron HCl 4 mg 09/08/23 15:49 09/11/23 14:02 Ondansetron 4 Mg/2 Ml Vial IV-PUSH 09/07/24 15:48 4 mg Q6H PRN Administration Nausea And Vomiting Oxycodone/Acetaminophen 1 tab 09/19/23 04:05 09/19/23 11:37 Oxycodone/Acetaminophen 5-325 Mg Tablet PO 1 tab Q4H PRN Administration Pain Pantoprazole Sodium 40 mg 09/12/23 09:00 09/19/23 08:46 Pantoprazole 40 Mg Tablet.Dr VALE 09/11/24 08:59 40 mg DAILY SERENA Administration Potassium Chloride 40 meq 09/08/23 15:49 09/15/23 09:14 Potassium Chloride Er 20 Meq Tab.Er.Prt PO 09/07/24 15:48 40 meq DAILY PRN Administration Hypokalemia Sodium Chloride 0 ml 09/08/23 09:52 09/18/23 10:14 Sodium Chloride 0.9 % 10 Ml Syringe IV-PUSH 09/07/24 09:51 40 ml PRN PRN Administration Flush Sodium Chloride 0 ml 09/08/23 19:08 Sodium Chloride 0.9 % 10 Ml Vial.Pf IV 09/07/24 19:07 PRN PRN ATIVAN DILUTION Sodium Chloride 0 ml 09/09/23 09:08 09/16/23 09:27 Sodium Chloride 0.9 % 10 Ml Syringe IV-PUSH 09/08/24 09:07 40 ml PRN PRN Administration Flush Thiamine HCl 100 mg 09/08/23 21:00 09/19/23 08:46 Thiamine 100 Mg Tablet PO 09/07/24 20:59 100 mg BID SERENA Administration Vancomycin HCl 125 mg 09/11/23 22:30 09/19/23 15:33 Vancomycin Liquid 15,000 Mg/300 Ml Soln.Recon PO 09/20/23 22:01 125 mg QID SERENA Administration A&P - Hospitalist Assessment/Plan (1) Dehydration: (2) Rhabdomyolysis: (3) Anemia of renal disease: (4) Liver transplant status: (5) Peritoneal dialysis catheter mechanical complication: Plan Assessment And Plan: 38F with PMH of HTN, history of Alcoholic liver failure (s/p transplant at [facility] 2014), 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 Diff Infection Diarrhea resolved. Remains afebrile, hemodynamically stable, leukocytosis still present but trend is lowering. CT abd shows diffuse wall thickening within the colon with accompanying pericolonic fat stranding. This is consistent with colitis which may be infectious or inflammatory. Also considered PD catheter malfunction as source of sepsis, but blood culture as well as catheter tip culture is negative She was started empirically on broad spectrum IV antibiotics with Invanz (PCN allergy) and Vancomycin IV initially. C.diff came back positive which explained her leukocytosis. Given no sign of other infection and negative blood Cx broad spectrum IV was discontinued -Continue vancomycin PO [id number], day 8 Acute on Chronic Anemia Chronic Anemia of CKD Hemoglobin improved and has been stable. No signs of bleeding at this time. no overt bleeding. she follows up for anemia with [facility]. GI evaluated the patient and advised that her anemia is due to ESRD, with no endoscopic evaluation advised at this time due to lack of evidence of signs of overt bleeding. -Patient has received 2 units packed red blood cells since presentation -Monitor CBC closely Folate Deficiency Folate low 5.7 she was started on supplement ESRD PD cath dysfunction Severe Hyponatremia -improved Nephrology was consulted for the management of dialysis and ESRD complication, recommendation appreciated. PD cath removed by General surgery and temporary R groin HD catheter placed by pulmonary -now removed -Underwent tunneled HD cath, HD schedule per nephrology Liver Transplant She had liver transplant at [facility] back in 2014 due to Alcoholic liver failure. family said she may be she has not been taking her antirejection mediation. there is a high possibility of noncompliance. -Continue home anti-rejection medications Acute Metabolic Encephalopathy Mental status now close to baseline. Likely multifactorial in the setting of possible uremic encephalopathy, alcohol withdrawal, acute C. difficile infection. Ammonia level also elevated, but low suspicion that etiology is hepatic in origin. -Neurology recommendation appreciated; further workup per their recommendations -Treat C. difficile infection, maintain on HD schedule, hold on lactulose administration Elevated Troponin In the setting of poor renal clearance, sepsis from C. difficile. Patient has no cardiorespiratory complaints. No EKG changes present Recent right traumatic proximal humerus fracture There is edema in her R arm and with some ecchymosis. there is no warmth, tenderness (lower form the shoulder) or erythema. Patient does continue to complain of pain. Seen on x-ray at [facility] on 09/01/2023. Orthopedic consult for possiblelate complication of humerus fracture. Discussed surgical versus conservative options with family. surgical intervention was not recommended, and she is to follow as outpatient. Due to weak pulse in her right arm PVR UE was done which was Normal -Nonweightbearing right upper extremity and sling for comfort -Pain control with morphine, Percocet-will be cautious with these medications given patient's liver and kidney issues Probable EtOH Abuse Disorder/withdrawal There is conflicting information about her drinking habit. The family doesn't know if she drinks at home. the patient has vague answers about the last time she had a drink. she reported to RN on admission that she still drinks. Blood alcohol concentration is not detected on admission -Can discontinue CIWA protocol given that patient is likely out of the withdrawal window and mental status has improved -Multivitamin/folic acid/Thiamine -Symptom control and supportive care Sore Throat/Oral Candidiasis There was oral white Mucosal Lesions on her tongue which is slowly getting better local antifungal treatment w/nystatin Hypothyroidism TSH wnl; Synthroid was continued Poor Appetite I encouraged oral intake diet supplements dietitian input noted Rhabdomyolysis - resolved She was given IVF. CPK improved to normal Physical Deconditioning Secondary to multiple acute medical issues. Will need to increase work with PT/OT this week -Plan for SNF on discharge Chronic diseases: Unless mentioned Above, Essential home medications have been continued. DVT Px: SCDs Disposition: SNF on discharge, increased work with PT/OT Plan of care Discussed with: the medical team, the patient and and grandmother at bedside Documented By: Tani Meehan MD 4 1721 Signed By: <Electronically signed by Tani Meehan MD> 09/19/23 1728 [facility] Work Phone: 1(364) 434-997204-26-2024 Progress note Author Sis Conn [facility] September 19, 2023 11:38am Note Date/Time September 19, 2023 11: 38am [facility] [address] [place] [address] Nephrology Progress Note Signed Patient: Winnie Cai MR#: [id number] : 1985 Acct:[id number] Age/Sex: 38 / F Adm Date: 4 Loc: 4 Room: [address] [place] [address] Type: ADM IN Attending Dr: Tani Meehan MD Copies to: ~ Date of Service: 09/19/2023 Subjective Subjective Narrative: Ms. 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 PD was started at [place] however he moved to [place] closer to her home. She has a history of liver transplant due to alcoholic liver cirrhosis at [facility] 2014. She did require hemodialysis in the perioperative period and later on was transitioned to PD. Patient has been noncompliant with peritoneal dialysis and missing multiple treatments at home per her records. Patient was brought to the ER on 09/07 as she has been significantly weak and dehydrated. Patient sustained a fall after she tripped last week and went to [facility] ER but she was found to have fracture of the right head of humerus. Right hand currently in sling dressing she is supposed to see orthopedics as outpatient. Patient was not able to do peritoneal dialysis at home since she has limited mobility of the right arm. Patient reported that she has not been eating or drinking over the last few days. Evaluation in the ER showed large hematoma around the shoulder and the chest. She was tachycardic 111 however blood pressure 115/73. No fever or chills. WBCs count was found to be ,000. Patient was started empirically on vancomycin and Zosyn after 2 sets ofblood culture was obtained. Hemoglobin was low 7.3 compared to 10 g/dL on . She has mildly elevated INR 1.4 despite she is not on any blood thinners medication. There is a report by nursing staff that patient still drinking vodka however it does not confirm. Ethyl alcohol level on admission was less than 10 mg/dL. Interval history: Patient was seen and examined.. Right IJ tunneled catheter was replaced September 15. Patient continues to complain of right arm pain due to humerus fracture. Right arm is in splint Patient remains on oral vancomycin for C. difficile colitis. Diarrhea has resolved. Patient is awake alert oriented x 3 today No nausea no vomiting. No shortness of breath. No abdominal pain. Exam Physical Exam Vital Signs: Temp Pulse Resp BP Pulse Ox O2 Del Method O2 Flow Rate 97.9 F 77 18 106/75 95 Room Air 6 09/19/23 11:08 09/19/23 11:08 09/19/23 11:08 09/19/23 11:08 09/19/23 11:08 09/19/23 07:58 09/08/23 19:23 Narrative: General: No acute distress Head :atraumatic normocephalic Eyes: PERRLA. Neck: no JVD no bruit. Heart: S1-S2. RRR Respiratory: Clear to auscultation. No wheezing. No crackles Abdomen: Soft, positive bowel sounds,no tenderness. Neurology: Awake alert oriented x3. No focal deficits Extremity. No cyanosis. No edema Skin: No skin rash Objective Intake and Output I&O: Intake & Output 09/16/23 09/17/23 09/18/23 09/19/23 23:59 23:59 23:59 23:59 Intake Total 1450 / 1450 840 / 840 1400 / 1400 750 / 750 Output Total 1300 / 1300 1273 / 1273 Balance 150 / 150 840 / 840 127 / 127 750 / 750 Weight 140 lb 6.951 oz 139 lb 15.896 oz 140 lb 3.424 oz 142 lb 10.225 oz Meds and Allergies Meds: Active Medications Calcium Acetate (Calcium Acetate 667 Mg Capsule) 667 mg PO TID.WITH.MEALS [facility] Stop: 09/08/24 11:59 Last Admin: 09/19/23 08:46 Dose: 667 mg Cyclosporine (Cyclosporine Modified 25 Mg Capsule) 75 mg PO DAILY [facility] Stop: 09/08/24 11:29 Last Admin: 09/19/23 08:46 Dose: 75 mg Darbepoetin Mariano (Darbepoetin Mariano In Polysorbat 60 Mcg/Ml Vial) 60 mcg IV-PUSHTh@0900 [facility]; Protocol Stop: 09/10/24 09:29 Last Admin: 09/18/23 10:12 Dose: 60 mcg Dextrose (Dextrose 50% In Water 25 Gm/50 Ml Syringe) 0 gm IV-PUSH PRN PRN PRN Reason: Hypoglycemia Stop: 09/07/24 17:35 Last Admin: 09/08/23 18:00 Dose: 25 gm Escitalopram Oxalate (Escitalopram 5 Mg Tablet) 15 mg PO DAILY [facility] Stop: 09/08/24 11:29 Last Admin: 09/19/23 08:46 Dose: 15 mg Ferric Sodium Gluconate Complex (Sodium Ferric Gluconat/Sucrose 62.5 Mg/5 Ml Vial) 62.5 mg IV-PUSH Th@0900 [facility] Stop: 09/10/24 09:29 Last Admin: 09/18/23 10:13 Dose: 62.5 mg Folic Acid (Folic Acid 1 Mg Tablet) 5 mg PO DAILY [facility] Stop: 09/11/24 08:59 Last Admin: 09/19/23 08:46 Dose: 5 mg Heparin Sodium (Porcine) (Heparin 10,000 Unit/10 Ml Vial) 2,600 unit IV PRN PRN PRN Reason: Dialysis Stop: 09/10/24 14:05 Last Admin: 09/13/23 12:07 Dose: 2,600 unit Heparin Sodium (Porcine) (Heparin 10,000 Unit/10 Ml Vial) 4,100 unit IV PRN PRN PRN Reason: Dialysis Stop: 09/15/24 09:17 Last Admin: 09/18/23 10:13 Dose: 4,100 unit Heparin Sodium (Porcine) (Heparin 10,000 Unit/10 Ml Vial) 2,000 unit IV PRN PRN PRN Reason: Dialysis Stop: 09/17/24 12:49 Sodium Chloride (0.9% Sodium Chloride 1,000 Ml) 1,000 mls @ 0 mls/hr MISCELLANE.Q0M PRN PRN Reason: Dialysis Stop: 09/08/24 09:07 Last Infusion: 09/18/23 10:15 Dose: Infused Levothyroxine Sodium (Levothyroxine 75 Mcg Tablet) 75 mcg PO DAILY@0630 [facility] Stop: 09/08/24 10:59 Last Admin: 09/19/23 05:44 Dose: Not Given Lidocaine HCl (Lidocaine 1% 50 Ml Vial) 0.1 ml INTRADERMA PREOP PRN PRN Reason: Venipuncture x 1 Dose Magnesium Oxide (Magnesium Oxide 400 Mg Tablet) 200 mg PO DAILY [facility] Stop: 09/09/24 08:59 Last Admin: 09/19/23 08:46 Dose: 200 mg Metoprolol Succinate (Metoprolol Succinate 50 Mg Tab.Er.24h) 50 mg PO QHS [facility] Stop: 09/07/24 21:59 Last Admin: 09/18/23 21:44 Dose: 50 mg Morphine Sulfate (Morphine Sulfate 2 Mg/Ml Vial) 1 mg IV-PUSH Q4H PRN PRN Reason: Pain Scale 7 - 10 Last Admin: 09/18/23 21:44 Dose: 1 mg Multi-Ingredient Mouthwash/Gargle (Magic Mouthwash With Lidocaine) 5 ml PO [id number] PRN Reason: Mouth Pain Stop: 09/15/24 21:59 Last Admin: 09/18/23 05:54 Dose: 5 ml Multivitamins (Multivitamin 1 Tab Tablet) 1 tab PO DAILY [facility] Stop: 09/08/24 08:59 Last Admin: 09/19/23 08:46 Dose: 1 tab Mycophenolate Sodium (Mycophenolate Sodium 180 Mg Tablet. *Nf*) 720 mg PO DAILY [facility] Stop: 09/08/24 11:29 Last Admin: 09/19/23 08:47 Dose: 720 mg Nicotine (Nicotine Patch 21 Mg/24hr 1 Each Patch.Td24) 1 each TRANSDERML DAILY PRN PRN Reason: Nicotine Cravings Stop: 10/27/23 09:01 Nystatin (Nystatin Susp 500,000 Unit/5 Ml Udc) 400,000 unit PO TID [facility] Stop: 09/15/24 21:59 Last Admin: 09/19/23 08:46 Dose: 400,000 unit Ondansetron HCl (Ondansetron 4 Mg/2 Ml Vial) 4 mg IV-PUSH Q6H PRN PRN Reason: Nausea And Vomiting Stop: 09/07/24 15:48 Last Admin: 09/11/23 14:02 Dose: 4 mg Oxycodone/Acetaminophen (Oxycodone/Acetaminophen 5-325 Mg Tablet) 1 tab PO Q4H PRN PRN Reason: Pain Last Admin: 09/19/23 05:13 Dose: 1 tab Pantoprazole Sodium (Pantoprazole 40 Mg Tablet.) 40 mg PO DAILY [facility] Stop: 09/11/24 08:59 Last Admin: 09/19/23 08:46 Dose: 40 mg Potassium Chloride (Potassium Chloride Er 20 Meq Tab.Er.Prt) 40 meq PO DAILY PRN PRN Reason: Hypokalemia Stop: 09/07/24 15:48 Last Admin: 09/15/23 09:14 Dose: 40 meq Sodium Chloride (Sodium Chloride 0.9 % 10 Ml Syringe) 0 ml IV-PUSH PRN PRN PRN Reason: Flush Stop: 09/07/24 09:51 Last Admin: 09/18/23 10:14 Dose: 40 ml Sodium Chloride (Sodium Chloride 0.9 % 10 Ml Vial.Pf) 0 ml IV PRN PRN PRN Reason: ATIVAN DILUTION Stop: 04/15/25 19:07 Sodium Chloride (Sodium Chloride 0.9 % 10 Ml Syringe) 0 ml IV-PUSH PRN PRN PRN Reason: Flush Stop: 09/08/24 09:07 Last Admin: 09/16/23 09:27 Dose: 40 ml Thiamine HCl (Thiamine 100 Mg Tablet) 100 mg PO BID [facility] Stop: 09/07/24 20:59 Last Admin: 09/19/23 08:46 Dose: 100 mg Vancomycin HCl (Vancomycin Liquid 15,000 Mg/300 Ml Soln.Recon) 125 mg PO QID [facility] Stop: 09/20/23 22:01 Last Admin: 09/19/23 08:47 Dose: 125 mg Allergies fish oil Allergy (Unknown, Verified 09/17/23 15:25) Unknown Reaction Penicillins Allergy (Unknown, Verified 09/17/23 15:25) Unknown Reaction Sulfa (Sulfonamide Antibiotics) Allergy (Verified 09/17/23 15:25) Hives sulfamethoxazole [From Bactrim] Allergy (Verified 09/17/23 15:25) Hives trimethoprim [From Bactrim] Allergy (Verified 09/17/23 15:25) Hives Results - Nephrology Labs 09/19/23 04:30 09/19/23 04:30 Labs: 09/19/23 04:30 BUN 10 Creatinine 3.83 H D Albumin 2.3 L Radiology Impressions Impressions - last 24 hours: Any impression(s) listed above is documentation that was entered by the reading physician into a diagnostic report(s) for Winnie Cai. I have reviewed the report(s) and am incorporating any findings in the treatment plan of this patient where applicable. A&P - Nephrology Assessment/Plan (1) ESRD (end stage renal disease) on dialysis: Plan: Patient has ESRD related to combination of hepatorenal syndrome and cyclosporine toxicity. Patient had REED at the time of liver transplant as well and she did require short period of hemodialysis. Patient is back on dialysis since 05/04/2021. She was switched to IHD from PD on 09/07 after she fell and fractured her right arm. Patient has not been compliant with PD at home as well. (2) History of peritoneal dialysis: Plan: * PD catheter was removed on 09/07 as it was broken and not usable. Patient also not able to do PD related to right arm fracture. * PD catheter tip culture is negative (3) History of shoulder fracture: Plan: Patient has right humerus fracture s/p fall after she tripped at home. (4) Anemia of renal disease: Plan: Patient has significant drop of hemoglobin over the last week after fall and right humerus fracture. She has large hematoma over the right arm and chest. INR also mildly elevated. Last hemoglobin was 10 g/dL on August 19 * Hemoglobin did drop down to 6.2 g/dL on 09/07 with no evidence of active bleeding. Patient had 1 unit of packed RBCs * Iron stores and B12 are adequate however folic acid is low 5.7. Patient was started on oral folic acid 1 mg daily on 09/07. * Aranesp 40 mcg weekly with dialysis was started (5) Liver transplant status: Plan: Patient status post liver transplant at [facility] on October 2014. She has mild elevated AST however ALT and bilirubin are normal. There is question that the patient still drinking vodka however is not confirmed. INR is elevated. Plan * No need for hemodialysis session today. Next hemodialysis session will be tomorrow * Hemoglobin is up to 8.6 g deciliter. Continue Aranesp 60 mcg and Ferrlecit 62.5 mg weekly with dialysis. She has adequate iron stores. * Patient on oral vancomycin for C. difficile colitis. * Continue current liver transplant medications including mycophenolate 720 mg p.o. daily and cyclosporine 75 mg p.o. daily. * Monitor daily intake and output, renal panel and CBC to adjust medications, dialysis prescription and blood transfusion for hemoglobin below 7 g/dL Documented By: Sis Conn MD 09/19/23 1137 Signed By: <Electronically signed by Sis Conn MD> 09/19/23 1138 [facility] Work Phone: 1(846) 321-393504-25-2024 Progress note Author Tani Meehan [facility] September 18, 2023 8:06pm Note Date/Time September 18, 2023 8:[address] [facility] [address] [place] [address] Hospitalist Progress Note Signed Patient: Winnie Cai MR#: [id number] : 1985 Acct:[id number] Age/Sex: 38 / F Adm Date: 4 Loc: 4P Room: 2Z8636-5 Type: ADM IN Attending Dr: Tani Meehan MD Copies to: ~ Date of Service: 09/18/2023 Subjective Subjective Narrative: Patient does continue to complain of mouth pain, but in particular her right upper extremity pain is more severe today. She has been given exercises for theright arm to assist in strengthening. Diarrhea has resolved. Patient has 2 family members at bedside on my assessment. Exam Physical Exam Vital Signs: Temp Pulse Resp BP Pulse Ox O2 Del Method O2 Flow Rate 98.0 F 86 20 123/79 99 Room Air 6 09/18/23 15:30 09/18/23 15:30 09/18/23 15:30 09/18/23 15:30 09/18/23 15:30 09/18/23 15:30 09/08/23 19:23 Narrative: Constitutional: Tired appearing, middle-aged WF, resting in bed in mild pain dueto right upper extremity injury HEENT: Dry mucous membranes Cardiovascular: RRR, no M/R/G, normal S1 and S2, no JVD Respiratory: Lungs clear to auscultation bilaterally, no wheezes, rales or rhonchi GI: Soft, NTND, normoactive bowel sounds : Deferred Neuro: AAO x3, no focal deficits. CN III-XII grossly intact, Strength 5/5 throughout Extremities: No clubbing, cyanosis. RUE edematous, in sling on my assessment. Very tender throughout the proximal portion of the right arm. Very limited range of motion secondary to pain. Psych: Patient calm, cooperative and conversant Objective Lab Results 09/18/23 04:57 09/18/23 04:57 Meds Allergies and Active Meds Allergies fish oil Allergy (Unknown, Verified 09/17/23 15:25) Unknown Reaction Penicillins Allergy (Unknown, Verified 09/17/23 15:25) Unknown Reaction Sulfa (Sulfonamide Antibiotics) Allergy (Verified 09/17/23 15:25) Hives sulfamethoxazole [From Bactrim] Allergy (Verified 09/17/23 15:25) Hives trimethoprim [From Bactrim] Allergy (Verified 09/17/23 15:25) Hives Active Meds: Active Medications Generic Name Dose Route Start Last Admin Trade Name Freq PRN Reason Stop Dose Admin Calcium Acetate 667 mg 09/09/23 12:00 09/18/23 12:00 Calcium Acetate 667 Mg Capsule PO 09/08/24 11:59 Not Given TID.WITH.MEALS SERENA Cyclosporine 75 mg 09/09/23 11:30 09/18/23 16:29 Cyclosporine Modified 25 Mg Capsule PO 09/08/24 11:29 75 mg DAILY SERENA Administration Darbepoetin Mariano 60 mcg 09/11/23 09:30 09/18/23 10:12 Darbepoetin Mariano In Polysorbat 60 Mcg/Ml Vial IV-PUSH 09/10/24 09:29 60 mcg Th@0900 [facility] Administration Protocol Dextrose 0 gm 09/08/23 17:36 09/08/23 18:00 Dextrose 50% In Water 25 Gm/50 Ml Syringe IV-PUSH 09/07/24 17:35 25 gm PRN PRN Administration Hypoglycemia Escitalopram Oxalate 15 mg 09/09/23 11:30 09/18/23 16:31 Escitalopram 5 Mg Tablet PO 09/08/24 11:29 15 mg DAILY SERENA Administration Ferric Sodium Gluconate Complex 62.5 mg 09/11/23 09:30 09/18/23 10:13 Sodium Ferric Gluconat/Sucrose 62.5 Mg/5 Ml Vial IV-PUSH 09/10/24 09:29 62.5 mg Th@0900 SERE[facility] Administration Folic Acid 5 mg 09/12/23 09:00 09/18/23 16:31 Folic Acid 1 Mg Tablet PO 09/11/24 08:59 5 mg DAILY SERE[facility] Administration Heparin Sodium (Porcine) 2,600 unit 09/11/23 14:06 09/13/23 12:07 Heparin 10,000 Unit/10 Ml Vial IV 09/10/24 14:05 2,600 unit PRN PRN Administration Dialysis Heparin Sodium (Porcine) 4,100 unit 09/16/23 09:18 09/18/23 10:13 Heparin 10,000 Unit/10 Ml Vial IV 09/15/24 09:17 4,100 unit PRN PRN Administration Dialysis Heparin Sodium (Porcine) 2,000 unit 09/18/23 12:50 Heparin 10,000 Unit/10 Ml Vial IV 09/17/24 12:49 PRN PRN Dialysis Sodium Chloride 1,000 mls @ 0 mls/hr 09/09/23 09:08 09/18/23 10:15 0.9% Sodium Chloride 1,000 Ml MISCELLANE 09/08/24 09:07 Infused .Q0M PRN Infusion Dialysis As Directed Levothyroxine Sodium 75 mcg 09/09/23 11:00 09/18/23 05:50 Levothyroxine 75 Mcg Tablet PO 09/08/24 10:59 75 mcg DAILY@0630 [facility] Administration Lidocaine HCl 0.1 ml 09/16/23 05:39 Lidocaine 1% 50 Ml Vial INTRADERMA PREOP PRN Venipuncture x 1 Dose Magnesium Oxide 200 mg 09/10/23 09:00 09/18/23 16:31 Magnesium Oxide 400 Mg Tablet PO 09/09/24 08:59 200 mg DAILY [facility] Administration Metoprolol Succinate 50 mg 09/08/23 22:00 09/17/23 21:20 Metoprolol Succinate 50 Mg Tab.Er.24h PO 09/07/24 21:59 50 mg QHS SERENA Administration Morphine Sulfate 1 mg 09/12/23 19:31 09/17/23 23:46 Morphine Sulfate 2 Mg/Ml Vial IV-PUSH 1 mg Q4H PRN Administration Pain Scale 7 - 10 Multi-Ingredient Mouthwash/Gargle 5 ml 09/16/23 18:52 09/18/23 05:54 Magic Mouthwash With Lidocaine PO 09/15/24 21:59 5 ml Q4HR PRN Administration Mouth Pain Multivitamins 1 tab 09/09/23 09:00 09/18/23 16:29 Multivitamin 1 Tab Tablet PO 09/08/24 08:59 1 tab DAILY [facility]ERE[facility] Administration Mycophenolate Sodium 720 mg 09/09/23 11:30 09/18/23 16:27 Mycophenolate Sodium 180 Mg Tablet.Dr *Nf* PO 09/08/24 11:29 720 mg DAILY [facility]ERE[facility] Administration Nicotine 1 each 09/15/23 15:09 Nicotine Patch 21 Mg/24hr 1 Each Patch.Td24 TRANSDERML 10/27/23 09:01 DAILY PRN Nicotine Cravings Nystatin 400,000 unit 09/16/23 22:00 09/18/23 16:28 Nystatin Susp 500,000 Unit/5 Ml Udc PO 09/15/24 21:59 400,000 unit TID SERENA Administration Ondansetron HCl 4 mg 09/08/23 15:49 09/11/23 14:02 Ondansetron 4 Mg/2 Ml Vial IV-PUSH 09/07/24 15:48 4 mg Q6H PRN Administration Nausea And Vomiting Pantoprazole Sodium 40 mg 09/12/23 09:00 09/18/23 16:32 Pantoprazole 40 Mg Tablet.Dr PO 09/11/24 08:59 40 mg DAILY SERENA Administration Potassium Chloride 40 meq 09/08/23 15:49 09/15/23 09:14 Potassium Chloride Er 20 Meq Tab.Er.Prt PO 09/07/24 15:48 40 meq DAILY PRN Administration Hypokalemia Sodium Chloride 0 ml 09/08/23 09:52 09/18/23 10:14 Sodium Chloride 0.9 % 10 Ml Syringe IV-PUSH 09/07/24 09:51 40 ml PRN PRN Administration Flush Sodium Chloride 0 ml 09/08/23 19:08 Sodium Chloride 0.9 % 10 Ml Vial.Pf IV 09/07/24 19:07 PRN PRN ATIVAN DILUTION Sodium Chloride 0 ml 09/09/23 09:08 09/16/23 09:27 Sodium Chloride 0.9 % 10 Ml Syringe IV-PUSH 09/08/24 09:07 40 ml PRN PRN Administration Flush Thiamine HCl 100 mg 09/08/23 21:00 09/18/23 09:00 Thiamine 100 Mg Tablet PO 09/07/24 20:59 Not Given BID SERENA Vancomycin HCl 125 mg 09/11/23 22:30 09/18/23 16:28 Vancomycin Liquid 15,000 Mg/300 Ml Soln.Recon PO 09/20/23 22:01 125 mg QID SERENA Administration A&P - Hospitalist Assessment/Plan (1) Dehydration: (2) Rhabdomyolysis: (3) Anemia of renal disease: (4) Liver transplant status: (5) Peritoneal dialysis catheter mechanical complication: Plan Assessment And Plan: 38F with PMH of HTN, history of Alcoholic liver failure (s/p transplant at [facility] 2014), 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 Diff Infection Diarrhea resolved. Remains afebrile, hemodynamically stable, leukocytosis still present but trend is lowering. CT abd shows diffuse wall thickening within the colon with accompanying pericolonic fat stranding. This is consistent with colitis which may be infectious or inflammatory. Also considered PD catheter malfunction as source of sepsis, but blood culture as well as catheter tip culture is negative She was started empirically on broad spectrum IV antibiotics with Invanz (PCN allergy) and Vancomycin IV initially. C.diff came back positive which explained her leukocytosis. Given no sign of other infection and negative blood Cx broad spectrum IV was discontinued -Continue vancomycin PO [id number], day 7 Acute on Chronic Anemia Chronic Anemia of CKD Hemoglobin improved up to 8.1 today. No signs of bleeding at this time. No recent Hb to compare. no overt bleeding. she follows up for anemia with [facility]. GI evaluated the patient and advised that her anemia is due to ESRD with no endoscopic evaluation advised at this time due to lack of evidence of signs of overt bleeding. -Patient has received 2 units packed red blood cells since presentation -Monitor CBC closely Folate Deficiency Folate low 5.7 she was started on supplement ESRD PD cath dysfunction Severe Hyponatremia -improved Nephrology was consulted for the management of dialysis and ESRD complication, recommendation appreciated. PD cath removed by General surgery and temporary R groin HD catheter placed by pulmonary -Underwent tunneled HD cath, HD schedule per nephrology Liver Transplant She had liver transplant at [facility] back in 2014 due to Alcoholic liver failure. family said she may be she has not been taking her antirejection mediation. there is a high possibility of noncompliance. -Continue home anti-rejection medications Acute Metabolic Encephalopathy Mental status now close to baseline. Likely multifactorial in the setting of possible uremic encephalopathy, alcohol withdrawal, acute C. difficile infection. Ammonia level also elevated, but low suspicion that etiology is hepatic in origin. -Neurology recommendation appreciated; further workup per their recommendations -Treat C. difficile infection, maintain on HD schedule, hold on lactulose administration Elevated Troponin In the setting of poor renal clearance, sepsis from C. difficile. Patient has no cardiorespiratory complaints. No EKG changes present Recent right traumatic proximal humerus fracture There is edema in her R arm and with some ecchymosis. there is no warmth, tenderness (lower form the shoulder) or erythema. Patient does continue to complain of pain. Seen on x-ray at [facility] on 09/01/2023. Orthopedic consult for possiblelate complication of humerus fracture. Discussed surgical versus conservative options with family. surgical intervention was not recommended, and she is to follow as outpatient. Due to weak pulse in her right arm PVR UE was done which was Normal -Nonweightbearing right upper extremity and sling for comfort -Pain control with morphine, Percocet-will be cautious with these medications given patient's liver and kidney issues Probable EtOH Abuse Disorder/withdrawal There is conflicting information about her drinking habit. The family doesn't know if she drinks at home. the patient has vague answers about the last time she had a drink. she reported to RN on admission that she still drinks. Blood alcohol concentration is not detected on admission -Can discontinue CIWA protocol given that patient is likely out of the withdrawal window and mental status has improved -Multivitamin/folic acid/Thiamine -Symptom control and supportive care Sore throat/Oral Candidiasis There was oral white Mucosal Lesions on her tongue which is slowly getting better local antifungal treatment w/nystatin Hypothyroidism TSH wnl; Synthroid was continued Poor Appetite I encouraged oral intake diet supplements dietitian input noted Rhabdomyolysis - resolved CPK up to 4600 on admission She was given IVF. CPK improved to normal Physical Deconditioning Secondary to multiple acute medical issues. Will need to increase work with PT/OT this week -Plan for SNF on discharge Chronic diseases: Unless mentioned Above, Essential home medications have been continued. DVT Px: SCDs Disposition: SNF on discharge, increased work with PT/OT Plan of care Discussed with: the medical team, the patient and and grandmother at bedside Documented By: Tani Meehan MD 1951 Signed By: <Electronically signed by Tani Meehan MD> 09/18/232005 [facility] Work Phone: 1(110) 795-301404-25-2024 Progress note Author Sis Conn [facility] September 18, 2023 12:27pm Note Date/Time September 18, 2023 12: 27pm [facility] [address] [place], [place] [id number] Nephrology Progress Note Signed Patient: Winnie Cai MR#: [id number] : 1985 Acct:[id number] Age/Sex: 38 / F Adm Date: 4 Loc: 4P Room: 3K1528-8 Type: ADM IN Attending Dr: Tani Meehan MD Copies to: ~ Date of Service: 09/18/2023 Subjective Subjective Narrative: Ms. 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 PD was started at [place] however he moved to [place] closer to her home. She has a history of liver transplant due to alcoholic liver cirrhosis at [facility] 2014. She did require hemodialysis in the perioperative period and later on was transitioned to PD. Patient has been noncompliant with peritoneal dialysis and missing multiple treatments at home per her records. Patient was brought to the ER on 09/07 as she has been significantly weak and dehydrated. Patient sustained a fall after she tripped last week and went to [facility] ER but she was found to have fracture of the right head of humerus. Right hand currently in sling dressing she is supposed to see orthopedics as outpatient. Patient was not able to do peritoneal dialysis at home since she has limited mobility of the right arm. Patient reported that she has not been eating or drinking over the last few days. Evaluation in the ER showed large hematoma around the shoulder and the chest. She was tachycardic 111 however blood pressure 115/73. No fever or chills. WBCs count was found to be [id number]. Patient was started empirically on vancomycin and Zosyn after 2 sets ofblood culture was obtained. Hemoglobin was low 7.3 compared to 10 g/dL on . She has mildly elevated INR 1.4 despite she is not on any blood thinners medication. There is a report by nursing staff that patient still drinking vodka however it does not confirm. Ethyl alcohol level on admission was less than 10 mg/dL. Interval history: Patient was seen and examined while in hemodialysis. Right IJ tunneled catheterwas replaced September 15. Patient continues to complain of right arm pain. Right arm is in splint Patient remains on oral vancomycin for C. difficile colitis. Diarrhea has resolved. Patient is awake alert oriented x 3 today No nausea no vomiting. No shortness of breath. No abdominal pain. Exam Physical Exam Vital Signs: Temp Pulse Resp BP Pulse Ox O2 Del Method O2 Flow Rate 98.3 F 79 18 100/63 100 Room Air 6 09/18/23 09:18 09/18/23 12:00 09/18/23 09:18 09/18/23 12:00 09/18/23 09:18 09/18/23 09:18 09/08/23 19:23 Narrative: General: No acute distress Head :atraumatic normocephalic Eyes: PERRLA. Neck: no JVD no bruit. Heart: S1-S2. RRR Respiratory: Clear to auscultation. No wheezing. No crackles Abdomen: Soft, positive bowel sounds,no tenderness. Neurology: Awake alert oriented x3. No focal deficits Extremity. No cyanosis. No edema Skin: No skin rash Objective Intake and Output I&O: Intake & Output 09/15/23 09/16/23 09/17/23 09/18/23 23:59 23:59 23:59 23:59 Intake Total 700 / 700 1450 / 1450 840 / 840 700 / 700 Output Total 1300 / 1300 Balance 700 / 700 150 / 150 840 / 840 700 / 700 Weight 140 lb 6.951 oz 140 lb 6.951 oz 139 lb 15.896 oz 140 lb 3.424 oz Meds and Allergies Meds: Active Medications Calcium Acetate (Calcium Acetate 667 Mg Capsule) 667 mg PO TID.WITH.MEALS [facility] Stop: 09/08/24 11:59 Last Admin: 09/18/23 10:08 Dose: Not Given Cyclosporine (Cyclosporine Modified 25 Mg Capsule) 75 mg PO DAILY [facility] Stop: 09/08/24 11:29 Last Admin: 09/17/23 09:20 Dose: 75 mg Darbepoetin Mariano (Darbepoetin Mariano In Polysorbat 60 Mcg/Ml Vial) 60 mcg IV-PUSHTh@0900 [facility]; Protocol Stop: 09/10/24 09:29 Last Admin: 09/18/23 10:12 Dose: 60 mcg Dextrose (Dextrose 50% In Water 25 Gm/50 Ml Syringe) 0 gm IV-PUSH PRN PRN PRN Reason: Hypoglycemia Stop: 09/07/24 17:35 Last Admin: 09/08/23 18:00 Dose: 25 gm Escitalopram Oxalate (Escitalopram 5 Mg Tablet) 15 mg PO DAILY [facility] Stop: 09/08/24 11:29 Last Admin: 09/17/23 09:20 Dose: 15 mg Ferric Sodium Gluconate Complex (Sodium Ferric Gluconat/Sucrose 62.5 Mg/5 Ml Vial) 62.5 mg IV-PUSH Th@0900 [facility] Stop: 09/10/24 09:29 Last Admin: 09/18/23 10:13 Dose: 62.5 mg Folic Acid (Folic Acid 1 Mg Tablet) 5 mg PO DAILY [facility] Stop: 09/11/24 08:59 Last Admin: 09/17/23 09:20 Dose: 5 mg Heparin Sodium (Porcine) (Heparin 10,000 Unit/10 Ml Vial) 2,600 unit IV PRN PRN PRN Reason: Dialysis Stop: 09/10/24 14:05 Last Admin: 09/13/23 12:07 Dose: 2,600 unit Heparin Sodium (Porcine) (Heparin 10,000 Unit/10 Ml Vial) 4,100 unit IV PRN PRN PRN Reason: Dialysis Stop: 09/15/24 09:17 Last Admin: 09/18/23 10:13 Dose: 4,100 unit Sodium Chloride (0.9% Sodium Chloride 1,000 Ml) 1,000 mls @ 0 mls/hr MISCELLANE.Q0M PRN PRN Reason: Dialysis Stop: 09/08/24 09:07 Last Infusion: 09/18/23 10:15 Dose: Infused Levothyroxine Sodium (Levothyroxine 75 Mcg Tablet) 75 mcg PO DAILY@0630 [facility] Stop: 09/08/24 10:59 Last Admin: 09/18/23 05:50 Dose: 75 mcg Lidocaine HCl (Lidocaine 1% 50 Ml Vial) 0.1 ml INTRADERMA PREOP PRN PRN Reason: Venipuncture x 1 Dose Magnesium Oxide (Magnesium Oxide 400 Mg Tablet) 200 mg PO DAILY [facility] Stop: 09/09/24 08:59 Last Admin: 09/17/23 09:19 Dose: 200 mg Metoprolol Succinate (Metoprolol Succinate 50 Mg Tab.Er.24h) 50 mg PO QHS [facility] Stop: 09/07/24 21:59 Last Admin: 09/17/23 21:20 Dose: 50 mg Morphine Sulfate (Morphine Sulfate 2 Mg/Ml Vial) 1 mg IV-PUSH Q4H PRN PRN Reason: Pain Scale 7 - 10 Last Admin: 09/17/23 23:46 Dose: 1 mg Multi-Ingredient Mouthwash/Gargle (Magic Mouthwash With Lidocaine) 5 ml PO [id number] PRN Reason: Mouth Pain Stop: 09/15/24 21:59 Last Admin: 09/18/23 05:54 Dose: 5 ml Multivitamins (Multivitamin 1 Tab Tablet) 1 tab PO DAILY [facility] Stop: 09/08/24 08:59 Last Admin: 09/17/23 09:20 Dose: 1 tab Mycophenolate Sodium (Mycophenolate Sodium 180 Mg Tablet. *Nf*) 720 mg PO DAILY [facility] Stop: 09/08/24 11:29 Last Admin: 09/17/23 09:18 Dose: 720 mg Nicotine (Nicotine Patch 21 Mg/24hr 1 Each Patch.Td24) 1 each TRANSDERML DAILY PRN PRN Reason: Nicotine Cravings Stop: 10/27/23 09:01 Nystatin (Nystatin Susp 500,000 Unit/5 Ml Udc) 400,000 unit PO TID [facility] Stop: 09/15/24 21:59 Last Admin: 09/18/23 09:05 Dose: 400,000 unit Ondansetron HCl (Ondansetron 4 Mg/2 Ml Vial) 4 mg IV-PUSH Q6H PRN PRN Reason: Nausea And Vomiting Stop: 09/07/24 15:48 Last Admin: 09/11/23 14:02 Dose: 4 mg Oxycodone/Acetaminophen (Oxycodone/Acetaminophen 5-325 Mg Tablet) 1 tab PO [id number] PRN Reason: pain Last Admin: 09/17/23 21:26 Dose: 1 tab Pantoprazole Sodium (Pantoprazole 40 Mg Tablet.Dr) 40 mg PO DAILY [facility] Stop: 09/11/24 08:59 Last Admin: 09/17/23 09:20 Dose: 40 mg Potassium Chloride (Potassium Chloride Er 20 Meq Tab.Er.Prt) 40 meq PO DAILY PRN PRN Reason: Hypokalemia Stop: 09/07/24 15:48 Last Admin: 09/15/23 09:14 Dose: 40 meq Sodium Chloride (Sodium Chloride 0.9 % 10 Ml Syringe) 0 ml IV-PUSH PRN PRN PRN Reason: Flush Stop: 09/07/24 09:51 Last Admin: 09/18/23 10:14 Dose: 40 ml Sodium Chloride (Sodium Chloride 0.9 % 10 Ml Vial.Pf) 0 ml IV PRN PRN PRN Reason: ATIVAN DILUTION Stop: 09/07/24 19:07 Sodium Chloride (Sodium Chloride 0.9 % 10 Ml Syringe) 0 ml IV-PUSH PRN PRN PRN Reason: Flush Stop: 09/08/24 09:07 Last Admin: 09/16/23 09:27 Dose: 40 ml Thiamine HCl (Thiamine 100 Mg Tablet) 100 mg PO BID SERE[facility] Stop: 09/07/24 20:59 Last Admin: 09/17/23 21:21 Dose: 100 mg Vancomycin HCl (Vancomycin Liquid 15,000 Mg/300 Ml Soln.Recon) 125 mg PO QID [facility] Stop: 09/20/23 22:01 Last Admin: 09/18/23 09:05 Dose: 125 mg Allergies fish oil Allergy (Unknown, Verified 09/17/23 15:25) Unknown Reaction Penicillins Allergy (Unknown, Verified 09/17/23 15:25) Unknown Reaction Sulfa (Sulfonamide Antibiotics) Allergy (Verified 09/17/23 15:25) Hives sulfamethoxazole [From Bactrim] Allergy (Verified 09/17/23 15:25) Hives trimethoprim [From Bactrim] Allergy (Verified 09/17/23 15:25) Hives Results - Nephrology Labs 09/18/23 04:57 09/18/23 04:57 Labs: 09/18/23 04:57 BUN 19 Creatinine 5.49 H D Radiology Impressions Impressions - last 24 hours: Impressions Chest X-Ray 09/08/23 10:03 IMPRESSION: No acute cardiopulmonary pathology. There is a fracture of the head and neck of the proximal humerus on the right. Impression dictated by: Sp Germain M.D.09/08/2023 10:25 AM Dictation Location: [facility]12 Abdomen/Pelvis CT 09/08/23 10:36 IMPRESSION: There is diffuse wall thickening within the colon with accompanying pericolonic fat stranding. This is consistent with colitis which may be infectious or inflammatory. A small amount of peritoneal free fluid is noted with a peritoneal dialysis catheter in the left lower quadrant. There is extensive previous liver transplant. Additional chronic findings are noted, as above. Impression dictated by: Sp Germain M.D.09/08/2023 12:10 PM Dictation Location: [facility] 09/08/23 10:36 IMPRESSION: No acute intracranial pathology. Impression dictated by: Sp Germain M.D.09/08/2023 12:02 PM Dictation Location: [facility] KUB X-Ray 09/09/23 12:00 IMPRESSION: RIGHT-SIDED FEMORAL LINE TIP LIKELY IN THE DISTAL IVC. GASEOUS DISTENTION INVOLVING SMALL BOWEL AND COLON POSSIBLY RELATING TO ILEUS. FOLLOW-UP IS SUGGESTED. Impression dictated by: Emeka Gardner Jr., D.O.09/09/2023 12:22 PM Dictation Location: [facility]--15 Shoulder X-Ray 09/12/23 11:36 IMPRESSION: COMMINUTED IMPACTED FRACTURE INVOLVING THE RIGHT HUMERAL HEAD/NECK WITH WHAT APPEARS TO BE PERIOSTEAL REACTION NOTED SUGGESTIVE OF HEALING RESPONSE. Impression dictated by: Emeka Gardner Jr., D.O.09/12/2023 2:29 PM Dictation Location: [place] [address] PVR 09/12/23 12:00 IMPRESSION: Normal study. Impression dictated by: Lobito Joe MD09/13/2023 11:52 AM Dictation Location: [facility]- Chest X-Ray 09/16/23 00:00 IMPRESSION: There is a dual lumen tunneled right IJ catheter with the tip at the distal superior vena cava in satisfactory position. There is no pneumothorax. Impression dictated by: Sp Germain M.D.09/16/2023 8:42 AM Dictation Location: [place] [address] Brain MRI 09/16/23 10:35 IMPRESSION: NEGATIVE MRI OF THE BRAIN. Impression dictated by: Mary Menard M.D.09/17/2023 7:26 AM Dictation Location: [place] [address] Any impression(s) listed above is documentation that was entered by the reading physician into a diagnostic report(s) for Winnie Cai. I have reviewed the report(s) and am incorporating any findings in the treatment plan of this patient where applicable. A&P - Nephrology Assessment/Plan (1) ESRD (end stage renal disease) on dialysis: Plan: Patient has ESRD related to combination of hepatorenal syndrome and cyclosporine toxicity. Patient had REED at the time of liver transplant as well and she did require short period of hemodialysis. Patient is back on dialysis since 05/04/2021. She was switched to IHD from PD on 09/07 after she fell and fractured her right arm. Patient has not been compliant with PD at home as well. (2) History of peritoneal dialysis: Plan: * PD catheter was removed on 09/07 as it was broken and not usable. Patient also not able to do PD related to right arm fracture. * PD catheter tip culture is negative (3) History of shoulder fracture: Plan: Patient has right humerus fracture s/p fall after she tripped at home. (4) Anemia of renal disease: Plan: Patient has significant drop of hemoglobin over the last week after fall and right humerus fracture. She has large hematoma over the right arm and chest. INR also mildly elevated. Last hemoglobin was 10 g/dL on August 19 * Hemoglobin did drop down to 6.2 g/dL on 09/07 with no evidence of active bleeding. Patient had 1 unit of packed RBCs * Iron stores and B12 are adequate however folic acid is low 5.7. Patient was started on oral folic acid 1 mg daily on 09/07. * Aranesp 40 mcg weekly with dialysis was started (5) Liver transplant status: Plan: Patient status post liver transplant at [facility] on October 2014. She has mild elevated AST however ALT and bilirubin are normal. There is question that the patient still drinking vodka however is not confirmed. INR is elevated. Plan * Hemodialysis session today, blood flow rate 350, dialysate flow rate 500, ultrafiltration 1 L * Hemodialysis filter clotted today. Will add 2000 units heparin hemodialysis session * Hemoglobin is up to 8.1 g deciliter. Continue Aranesp 60 mcg and Ferrlecit 62.5 mg weekly with dialysis. She has adequate iron stores. * Patient on oral vancomycin for C. difficile colitis. * Continue current liver transplant medications including mycophenolate 720 mg p.o. daily and cyclosporine 75 mg p.o. daily. * Monitor daily intake and output, renal panel and CBC to adjust medications, dialysis prescription and blood transfusion for hemoglobin below 7 g/dL Documented By: Sis Conn MD 09/18/231221 Signed By: <Electronically signed by Sis Conn MD> 09/18/231226 [facility] Work Phone: 1(869) 531-301904-24-2024 Progress note Author Tani Meehan [facility] September 17, 2023 3:13pm Note Date/Time September 17, 2023 2:[address] [facility] [address] [place] [address] Hospitalist Progress Note Signed Patient: Winnie Cai MR#: [id number] : 1985 Acct:[id number] Age/Sex: 38 / F Adm Date: 4 Loc: 4 Room: [address] [place] [address] Type: ADM IN Attending Dr: Tani Meehan MD Copies to: ~ Date of Service: 09/17/2023 Subjective Subjective Narrative: Patient seen and assessed at bedside today. Patient's aunt and grandmother are present there as well. She is still having some oral pain from her thrush. Sheis attempting to eat, but is having difficulty tolerating p.o. intake due to thepain in her mouth. She does state this is improving however. She has no more episodes of diarrhea. Exam Physical Exam Vital Signs: Temp Pulse Resp BP Pulse Ox O2 Del Method O2 Flow Rate 98.0 F 84 18 101/66 100 Room Air 6 09/17/23 12:00 09/17/23 12:00 09/17/23 12:00 09/17/23 12:00 09/17/23 12:00 09/17/23 12:00 09/08/23 19:23 Narrative: Constitutional: Tired appearing, middle-aged WF, resting in bed in mild pain dueto right upper extremity injury HEENT: Dry mucous membranes Cardiovascular: RRR, no M/R/G, normal S1 and S2, no JVD Respiratory: Lungs clear to auscultation bilaterally, no wheezes, rales or rhonchi GI: Soft, NTND, normoactive bowel sounds : Deferred Neuro: AAO x3, no focal deficits. CN III-XII grossly intact, Strength 5/5 throughout Extremities: No clubbing, cyanosis. RUE edematous, in sling on my assessment. Very tender throughout the proximal portion of the right arm. Very limited range of motion secondary to pain. Psych: Patient calm, cooperative and conversant Objective Lab Results 09/17/23 11:14 09/17/23 11:14 Meds Allergies and Active Meds Allergies fish oil Allergy (Unknown, Verified 09/08/23 09:53) Unknown Reaction Penicillins Allergy (Unknown, Verified 09/08/23 09:53) Unknown Reaction Sulfa (Sulfonamide Antibiotics) Allergy (Unknown, Verified 09/08/23 09:53) Unknown Reaction sulfamethoxazole [From Bactrim] Allergy (Verified 09/08/23 09:53) Unknown Reaction trimethoprim [From Bactrim] Allergy (Verified 09/08/23 09:53) Unknown Reaction Active Meds: Active Medications Generic Name Dose Route Start Last Admin Trade Name Freq PRN Reason Stop Dose Admin Calcium Acetate 667 mg 09/09/23 12:00 09/17/23 13:28 Calcium Acetate 667 Mg Capsule PO 09/08/24 11:59 Not Given TID.WITH.MEALS SERENA Cyclosporine 75 mg 09/09/23 11:30 09/17/23 09:20 Cyclosporine Modified 25 Mg Capsule PO 09/08/24 11:29 75 mg DAILY SERENA Administration Darbepoetin Mariano 60 mcg 09/11/23 09:30 09/11/23 14:03 Darbepoetin Mariano In Polysorbat 60 Mcg/Ml Vial IV-PUSH 09/10/24 09:29 60 mcg Th@0900 SERENA Administration Protocol Dextrose 0 gm 09/08/23 17:36 09/08/23 18:00 Dextrose 50% In Water 25 Gm/50 Ml Syringe IV-PUSH 09/07/24 17:35 25 gm PRN PRN Administration Hypoglycemia Escitalopram Oxalate 15 mg 09/09/23 11:30 09/17/23 09:20 Escitalopram 5 Mg Tablet PO 09/08/24 11:29 15 mg DAILY SERENA Administration Ferric Sodium Gluconate Complex 62.5 mg 09/11/23 09:30 09/11/23 14:03 Sodium Ferric Gluconat/Sucrose 62.5 Mg/5 Ml Vial IV-PUSH 09/10/24 09:29 62.5 mg Th@0900 SERENA Administration Folic Acid 5 mg 09/12/23 09:00 09/17/23 09:20 Folic Acid 1 Mg Tablet PO 09/11/24 08:59 5 mg DAILY SERENA Administration Heparin Sodium (Porcine) 2,600 unit 09/11/23 14:06 09/13/23 12:07 Heparin 10,000 Unit/10 Ml Vial IV 09/10/24 14:05 2,600 unit PRN PRN Administration Dialysis Heparin Sodium (Porcine) 4,100 unit 09/16/23 09:18 09/16/23 09:27 Heparin 10,000 Unit/10 Ml Vial IV 09/15/24 09:17 4,100 unit PRN PRN Administration Dialysis Sodium Chloride 1,000 mls @ 0 mls/hr 09/09/23 09:08 09/16/23 10:05 0.9% Sodium Chloride 1,000 Ml MISCELLANE 09/08/24 09:07 Infused .Q0M PRN Infusion Dialysis As Directed Sodium Chloride 500 mls @ 20 mls/hr 09/16/23 19:03 0.9 % Sodium Chloride IV 09/17/23 19:02 PROTOCOL PRN BLOOD TRANSFUSION Levothyroxine Sodium 75 mcg 09/09/23 11:00 09/17/23 05:13 Levothyroxine 75 Mcg Tablet PO 09/08/24 10:59 75 mcg DAILY@0630 SERENA Administration Lidocaine HCl 0.1 ml 09/16/23 05:39 Lidocaine 1% 50 Ml Vial INTRADERMA PREOP PRN Venipuncture x 1 Dose Magnesium Oxide 200 mg 09/10/23 09:00 09/17/23 09:19 Magnesium Oxide 400 Mg Tablet PO 09/09/24 08:59 200 mg DAILY SERENA Administration Metoprolol Succinate 50 mg 09/08/23 22:00 09/17/23 00:04 Metoprolol Succinate 50 Mg Tab.Er.24h PO 09/07/24 21:59 Not Given QHS SERENA Morphine Sulfate 1 mg 09/12/23 19:31 09/16/23 03:38 Morphine Sulfate 2 Mg/Ml Vial IV-PUSH 1 mg Q4H PRN Administration Pain Scale 7 - 10 Multi-Ingredient Mouthwash/Gargle 5 ml 09/16/23 18:52 Magic Mouthwash With Lidocaine PO 09/15/24 21:59 Q4HR PRN Mouth Pain Multivitamins 1 tab 09/09/23 09:00 09/17/23 09:20 Multivitamin 1 Tab Tablet PO 09/08/24 08:59 1 tab DAILY SERENA Administration Mycophenolate Sodium 720 mg 09/09/23 11:30 09/17/23 09:18 Mycophenolate Sodium 180 Mg Tablet. *Nf* PO 09/08/24 11:29 720 mg DAILY SERENA Administration Nicotine 1 each 09/15/23 15:09 Nicotine Patch 21 Mg/24hr 1 Each Patch.Td24 TRANSDERML 10/27/23 09:01 DAILY PRN Nicotine Cravings Nystatin 400,000 unit 09/16/23 22:00 09/17/23 09:18 Nystatin Susp 500,000 Unit/5 Ml Udc PO 09/15/24 21:59 400,000 unit TID SERENA Administration Ondansetron HCl 4 mg 09/08/23 15:49 09/11/23 14:02 Ondansetron 4 Mg/2 Ml Vial IV-PUSH 09/07/24 15:48 4 mg Q6H PRN Administration Nausea And Vomiting Oxycodone/Acetaminophen 1 tab 09/08/23 15:44 09/17/23 09:19 Oxycodone/Acetaminophen 5-325 Mg Tablet PO 1 tab Q4HR PRN Administration pain Pantoprazole Sodium 40 mg 09/12/23 09:00 09/17/23 09:20 Pantoprazole 40 Mg Tablet. PO 09/11/24 08:59 40 mg DAILY SERENA Administration Potassium Chloride 40 meq 09/08/23 15:49 09/15/23 09:14 Potassium Chloride Er 20 Meq Tab.Er.Prt PO 09/07/24 15:48 40 meq DAILY PRN Administration Hypokalemia Sodium Chloride 0 ml 09/08/23 09:52 09/16/23 06:26 Sodium Chloride 0.9 % 10 Ml Syringe IV-PUSH 09/07/24 09:51 10 ml PRN PRN Administration Flush Sodium Chloride 0 ml 09/08/23 19:08 Sodium Chloride 0.9 % 10 Ml Vial.Pf IV 09/07/24 19:07 PRN PRN ATIVAN DILUTION Sodium Chloride 0 ml 09/09/23 09:08 09/16/23 09:27 Sodium Chloride 0.9 % 10 Ml Syringe IV-PUSH 09/08/24 09:07 40 ml PRN PRN Administration Flush Thiamine HCl 100 mg 09/08/23 21:00 09/17/23 09:20 Thiamine 100 Mg Tablet PO 09/07/24 20:59 100 mg BID SERENA Administration Vancomycin HCl 125 mg 09/11/23 22:30 09/17/23 09:42 Vancomycin Liquid 15,000 Mg/300 Ml Soln.Recon PO 04/27/24 22:01 125 mg QID SERENA Administration A&P - Hospitalist Assessment/Plan (1) Peritoneal dialysis catheter mechanical complication: (2) Liver transplant status: (3) Anemia of renal disease: (4) Rhabdomyolysis: (5) Dehydration: Plan Assessment And Plan: 38F with PMH of HTN, history of Alcoholic liver failure (s/p transplant at [facility] 2014), 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 Diff Infection Diarrhea resolved. Remains afebrile, hemodynamically stable, leukocytosis does continue to slowly improve. CT abd shows diffuse wall thickening within the colon with accompanying pericolonic fat stranding. This is consistent with colitis which may be infectious or inflammatory. Also considered PD catheter malfunction, but blood culture from catheter tip is negative She was started empirically on broad spectrum IV antibiotics with Invanz (PNC allergy) and Vancomycin IV initially. C.diff came back positive which explained her leukocytosis. Given no sign of other infection and negative blood Cx broad spectrum IV was discontinued -Continue vancomycin PO [id number] Acute on Chronic Anemia - Ruled out Chronic Anemia of CKD Hemoglobin improved up to 8.1 today. No signs of bleeding at this time. No recent Hb to compare. no overt bleeding. she followed up for anemia with [place] [facility]. GI evaluated the patient and advised that her anemia is due to ESRD with no endoscopic evaluation was not advised at this timedue to lack of evidence of signs of overt bleeding. -Patient has received 2 units packed red blood cells since presentation Folate Deficiency Folate low 5.7 she was started on supplement ESRD PD cath dysfunction Severe Hyponatremia - resolved Nephrology was consulted for the management of dialysis and ESRD complication, recommendation appreciated. PD cath removed by General surgery and temporary R groin HD catheter placed by pulmonary -Underwent tunneled HD cath, HD schedule Liver Transplant She had liver transplant at [facility] back in 2014 due to Alcoholic liver failure. family said she may be she has not been taking her antirejection mediation. there is a high possibility of noncompliance. -Continue home anti-rejection medications Acute Metabolic Encephalopathy Mental status now close to baseline. Likely multifactorial in the setting of possible uremic encephalopathy, alcohol withdrawal, acute C. difficile infection. Ammonia level also elevated, but low suspicion that etiology is hepatic in origin. -neurology recommendation appreciated; further workup per their recommendations -Treat C. difficile infection, maintain on HD schedule, hold on lactulose administration Elevated Troponin In the setting of poor renal clearance, sepsis from C. difficile. Patient has no cardiorespiratory complaints. No EKG changes present Recent right traumatic proximal humerus fracture There is edema in her R arm and with some ecchymosis. there is no warmness, tenderness (lower form the shoulder) or erythema. Patient does continue to complain of pain. Seen on x-ray at [facility] on 09/01/2023. Orthopedic consult for possiblelate complication of humerus fracture. Discussed surgical versus conservative options with family. surgical intervention was not recommended, and she is to follow as outpatient. Due to weak pulse in her right arm PVR UE was done which was Normal -Nonweightbearing right upper extremity and sling for comfort -Pain control with morphine, Percocet-will be cautious with these medications given patient's liver and kidney issues Probable EtOH Abuse Disorder/withdrawal There is conflicting information about her drinking habit. The family doesn't know if she drinks at home. the patient has vague answers about the last time she had a drink. she reported to RN on admission that she still drinks. Blood alcohol concentration is not detected on admission -Can discontinue CIWA protocol given that patient is likely out of the withdrawal window and mental status has improved -Multivitamin/folic acid/Thiamine -Symptom control and supportive care Sore throat/Oral Candidiasis There was Oral white Mucosal Lesions on her tongue which is slowly getting better local antifungal treatment -May switch to nystatin if not improving more in the next day or 2 Hypothyroidism TSH wnl; Synthroid was continued Poor Appetite I encouraged oral intake diet supplements dietitian input noted Rhabdomyolysis - resolved CK up to 4600 on admission She was given IVF. CPK improved to normal Physical Deconditioning Secondary to multiple acute medical issues. Will need to increase work with PT/OT this week -Plan for SNF on discharge Chronic diseases: Unless mentioned Above, Essential home medications have been continued. DVT Px: SCDs Disposition: SNF on discharge, increased work with PT/OT Plan of care Discussed with: the medical team, the patient and and grandmother at bedside Documented By: Tani Meehan MD 4 1430 Signed By: <Electronically signed by Tani Meehan MD> 09/17/23 2832 [facility] Work Phone: 1([phone]) 606-193404-24-2024 Progress note Author Will Romero [facility] September 17, 2023 1:24pm Note Date/Time September 15, 2023 4:[address] [facility] [address] [place] [address] Neurology Progress Note Signed with Addenda Patient: Winnie Cai MR#: [id number] : 1985 Acct:[id number] Age/Sex: 38 / F Adm Date: 4 Loc: Room: [address] [place] [address] Type: ADM IN Attending Dr: Tani Meehan MD Copies to: ~ ADDENDUM2 MRI unremarkable. please call with questions. neuro will sign off. Addendum Documented By: Will Romero DO 09/17/23 1323 Addendum Signed By: <Electronically signed by Will Romero, > 09/17/23 1323 ADDENDUM1 Still awaiting MRI of the brain. Will follow once completed. Addendum Documented By: Will Romero DO 09/16/23 1350 Addendum Signed By: <Electronically signed by Will Romero DO> 09/16/23 1350 Date of Service: 09/15/2023 Subjective Subjective Narrative: Ms. Cai was awake, conversational and alert today. She had family arriving tot room around the same time as me. Her family states that she had a lucid interval yesterday where she was conversational, and asking questions about her hospital stay. After about 30 minutes, patient appeared to be confused again. Today she is able to participate in a conversation. She is alert and oriented x3. She states that her arm hurts and she is angry about being here. She does raise her voice when her family asked about some of her ADLs. She does seem to partially understand why she is in the hospital now. Upon reassessment, family states she has been alert, lucid, conversational and participating in therapy today. This is a substantial improvement when comparedto yesterday and Saturday. Review of Systems Review of Systems All other systems reviewed & are negative unless noted below or in HPI Exam Physical Exam Vital Signs: Temp Pulse Resp BP Pulse Ox O2 Del Method O2 Flow Rate 98.6 F 86 18 99/64 L 97 Room Air 6 09/15/23 07:44 09/15/23 07:44 09/15/23 07:44 09/15/23 07:44 09/15/23 07:44 09/15/23 07:45 09/08/23 19:23 Narrative: Narrative: EXAMINATION: Laying in bed. Extensive bruising to anterior chest wall and bilateral shoulders and arms. Limbs seem well-perfused. No significant edema. Normal work of breathing. Awake and alert. Attention not impaired. Speech fluent and nondysarthric. Pupils appear equal. Ocular motility is full. No nystagmus. Facial sensation is normal. Hearing is normal. Facial strength is normal. Tongue is midline. She can lift her left arm up in the air. Right armis in a cast. She can hold both legs in the air. Muscle bulk is normal. Muscle tone seems normal. Mild postural tremulousness. No significant asterixis. Light touch is intact. No visualized ataxic limb movements. Objective Vital Signs Vital Signs: Vital Signs - 24 hr 09/14/23 15:51 09/14/23 20:00 09/14/23 20:00 Temperature 97.6 F 98.1 F Pulse Rate 81 83 Respiratory Rate 16 16 Blood Pressure 117/71 124/80 02 Sat by Pulse Oximetry 100 99 Oxygen Delivery Method Room Air Room Air Room Air 09/15/23 00:00 09/15/23 03:57 09/15/23 07:44 Temperature 98.6 F Pulse Rate 84 87 86 Respiratory Rate 16 18 18 Blood Pressure 114/77 100/64 99/64 L 02 Sat by Pulse Oximetry 96 96 97 Oxygen Delivery Method Room Air Room Air Room Air 09/15/23 07:45 Temperature Pulse Rate Respiratory Rate Blood Pressure 02 Sat by Pulse Oximetry Oxygen Delivery Method Room Air Labs 09/15/23 04:36 09/15/23 04:36 Therapy Recommendations Therapy Recommendations: OT Recommendations OT Recommended Discharge [facility] Facility Location OT Recommended Services at Physical Therapy,Occupational Therapy Discharge PT Recommendations PT Recommended Discharge [facility] Facility Location PT Recommended Services at Physical Therapy,Occupational Therapy,Speech Discharge Therapy PT Discharge Comment dependent on pt progress Assessment/Plan (1) Closed fracture of right proximal humerus: (2) Metabolic encephalopathy: (3) Alcohol abuse: (4) Liver transplant status: Plan ASSESSMENT: Metabolic encephalopathy related to some mild to moderate metabolic derangement,namely hyperammonemia and azotemia, both of which have normalized. She also hadsevere hyponatremia presenting with a sodium of 117 and now is 130. She likely has some infection related encephalopathy due to her C. difficile colitis. She has intervals in which she appears encephalopathic but temporarily alerts and does not seem to have any focal neurological deficits. CT brain was unremarkable on admission. Alcohol withdrawal is also contributing. I also feel that the substantial fracture and need for pain medication has likely contributed to her altered mental status. Orthopedic surgery has evaluated the patient and decided that no surgical intervention will be undertaken while the patient is in the hospital. Her mental status has significantly improved over the course of her hospital stay. PLAN: 1. Continue the thiamine and folic acid supplementation 2. Follow up MRI brain - pending completion. If no acute abnormalities, neurology will sign off. Documented By: Will Romero DO 4 1206 Signed By: <Electronically signed by Will Romero DO> 09/15/23 9870 [facility] Work Phone: 1(794) 447-750404-24-2024 Progress note Author Sis Conn [facility] September 17, 2023 12:57pm Note Date/Time September 17, 2023 12: 57pm [facility] [address] [place] [address] Nephrology Progress Note Signed Patient: Winnie Cai MR#: [id number] : 1985 Acct:[id number] Age/Sex: 38 / F Adm Date: 4 Loc: Room: [address] [place] [address] Type: ADM IN Attending Dr: Tani Meehan MD Copies to: ~ Date of Service: 09/17/2023 Subjective Subjective Narrative: Ms. 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 PD was started at [place] however he moved to [place] closer to her home. She has a history of liver transplant due to alcoholic liver cirrhosis at [facility] 2014. She did require hemodialysis in the perioperative period and later on was transitioned to PD. Patient has been noncompliant with peritoneal dialysis and missing multiple treatments at home per her records. Patient was brought to the ER on 09/07 as she has been significantly weak and dehydrated. Patient sustained a fall after she tripped last week and went to [facility] ER but she was found to have fracture of the right head of humerus. Right hand currently in sling dressing she is supposed to see orthopedics as outpatient. Patient was not able to do peritoneal dialysis at home since she has limited mobility of the right arm. Patient reported that she has not been eating or drinking over the last few days. Evaluation in the ER showed large hematoma around the shoulder and the chest. She was tachycardic 111 however blood pressure 115/73. No fever or chills. WBCs count was found to be pncupyut20,000. Patient was started empirically on vancomycin and Zosyn after 2 sets ofblood culture was obtained. Hemoglobin was low 7.3 compared to 10 g/dL on . She has mildly elevated INR 1.4 despite she is not on any blood thinners medication. There is a report by nursing staff that patient still drinking vodka however it does not confirm. Ethyl alcohol level on admission was less than 10 mg/dL. Interval history: Patient was seen and examined in her room. Right IJ tunneled catheter was replaced September 15. Patient continues to complain of right arm pain. Right arm is in splint Patient remains on oral vancomycin for C. difficile colitis. Diarrhea has improved Patient is awake alert oriented x 3 today No nausea no vomiting. No shortness of breath. No abdominal pain. Exam Physical Exam Vital Signs: Temp Pulse Resp BP Pulse Ox O2 Del Method O2 Flow Rate 98.0 F 84 18 101/66 100 Room Air 6 09/17/23 12:09/17/23 12:09/17/23 12:09/17/23 12:09/17/23 12:09/17/23 12:09/08/23 19:23 Narrative: General: No acute distress Head :atraumatic normocephalic Eyes: PERRLA. Neck: no JVD no bruit. Heart: S1-S2. RRR Respiratory: Clear to auscultation. No wheezing. No crackles Abdomen: Soft, positive bowel sounds,no tenderness. Neurology: Awake alert oriented x3. No focal deficits Extremity. No cyanosis. No edema Skin: No skin rash Objective Intake and Output I&O: Intake & Output 09/14/23 09/15/23 09/16/23 09/17/23 23:59 23:59 23:59 23:59 Intake Total 550 / 550 700 / 700 1450 / 1450 240 / 240 Output Total 1300 / 1300 Balance 550 / 550 700 / 700 150 / 150 240 / 240 Weight 142 lb 10.225 oz 140 lb 6.951 oz 140 lb 6.951 oz 139 lb 15.896 oz Meds and Allergies Meds: Active Medications Calcium Acetate (Calcium Acetate 667 Mg Capsule) 667 mg PO TID.WITH.MEALS [facility] Stop: 09/08/24 11:59 Last Admin: 09/17/23 09:20 Dose: 667 mg Cyclosporine (Cyclosporine Modified 25 Mg Capsule) 75 mg PO DAILY [facility] Stop: 09/08/24 11:29 Last Admin: 09/17/23 09:20 Dose: 75 mg Darbepoetin Mariano (Darbepoetin Mariano In Polysorbat 60 Mcg/Ml Vial) 60 mcg IV-PUSHTh@0900 [facility]; Protocol Stop: 09/10/24 09:29 Last Admin: 09/11/23 14:03 Dose: 60 mcg Dextrose (Dextrose 50% In Water 25 Gm/50 Ml Syringe) 0 gm IV-PUSH PRN PRN PRN Reason: Hypoglycemia Stop: 09/07/24 17:35 Last Admin: 09/08/23 18:00 Dose: 25 gm Escitalopram Oxalate (Escitalopram 5 Mg Tablet) 15 mg PO DAILY [facility] Stop: 09/08/24 11:29 Last Admin: 09/17/23 09:20 Dose: 15 mg Ferric Sodium Gluconate Complex (Sodium Ferric Gluconat/Sucrose 62.5 Mg/5 Ml Vial) 62.5 mg IV-PUSH Th@0900 [facility] Stop: 09/10/24 09:29 Last Admin: 09/11/23 14:03 Dose: 62.5 mg Folic Acid (Folic Acid 1 Mg Tablet) 5 mg PO DAILY [facility] Stop: 09/11/24 08:59 Last Admin: 09/17/23 09:20 Dose: 5 mg Heparin Sodium (Porcine) (Heparin 10,000 Unit/10 Ml Vial) 2,600 unit IV PRN PRN PRN Reason: Dialysis Stop: 09/10/24 14:05 Last Admin: 09/13/23 12:07 Dose: 2,600 unit Heparin Sodium (Porcine) (Heparin 10,000 Unit/10 Ml Vial) 4,100 unit IV PRN PRN PRN Reason: Dialysis Stop: 09/15/24 09:17 Last Admin: 09/16/23 09:27 Dose: 4,100 unit Sodium Chloride (0.9% Sodium Chloride 1,000 Ml) 1,000 mls @ 0 mls/hr MISCELLANE.Q0M PRN PRN Reason: Dialysis Stop: 09/08/24 09:07 Last Infusion: 09/16/23 10:05 Dose: Infused Sodium Chloride (0.9 % Sodium Chloride) 500 mls @ 20 mls/hr IV PROTOCOL PRN PRN Reason: BLOOD TRANSFUSION Stop: 09/17/23 19:02 Levothyroxine Sodium (Levothyroxine 75 Mcg Tablet) 75 mcg PO DAILY@0630 [facility] Stop: 09/08/24 10:59 Last Admin: 09/17/23 05:13 Dose: 75 mcg Lidocaine HCl (Lidocaine 1% 50 Ml Vial) 0.1 ml INTRADERMA PREOP PRN PRN Reason: Venipuncture x 1 Dose Magnesium Oxide (Magnesium Oxide 400 Mg Tablet) 200 mg PO DAILY [facility] Stop: 09/09/24 08:59 Last Admin: 09/17/23 09:19 Dose: 200 mg Metoprolol Succinate (Metoprolol Succinate 50 Mg Tab.Er.24h) 50 mg PO QHS [facility] Stop: 09/07/24 21:59 Last Admin: 09/17/23 00:04 Dose: Not Given Morphine Sulfate (Morphine Sulfate 2 Mg/Ml Vial) 1 mg IV-PUSH Q4H PRN PRN Reason: Pain Scale 7 - 10 Last Admin: 09/16/23 03:38 Dose: 1 mg Multi-Ingredient Mouthwash/Gargle (Magic Mouthwash With Lidocaine) 5 ml PO [id number] PRN Reason: Mouth Pain Stop: 09/15/24 21:59 Multivitamins (Multivitamin 1 Tab Tablet) 1 tab PO DAILY [facility] Stop: 09/08/24 08:59 Last Admin: 09/17/23 09:20 Dose: 1 tab Mycophenolate Sodium (Mycophenolate Sodium 180 Mg Tablet. *Nf*) 720 mg PO DAILY [facility] Stop: 09/08/24 11:29 Last Admin: 09/17/23 09:18 Dose: 720 mg Nicotine (Nicotine Patch 21 Mg/24hr 1 Each Patch.Td24) 1 each TRANSDERML DAILY PRN PRN Reason: Nicotine Cravings Stop: 10/27/23 09:01 Nystatin (Nystatin Susp 500,000 Unit/5 Ml Udc) 400,000 unit PO TID [facility] Stop: 09/15/24 21:59 Last Admin: 09/17/23 09:18 Dose: 400,000 unit Ondansetron HCl (Ondansetron 4 Mg/2 Ml Vial) 4 mg IV-PUSH Q6H PRN PRN Reason: Nausea And Vomiting Stop: 09/07/24 15:48 Last Admin: 09/11/23 14:02 Dose: 4 mg Oxycodone/Acetaminophen (Oxycodone/Acetaminophen 5-325 Mg Tablet) 1 tab PO [id number] PRN Reason: pain Last Admin: 09/17/23 09:19 Dose: 1 tab Pantoprazole Sodium (Pantoprazole 40 Mg Tablet.Dr) 40 mg PO DAILY [facility] Stop: 09/11/24 08:59 Last Admin: 09/17/23 09:20 Dose: 40 mg Potassium Chloride (Potassium Chloride Er 20 Meq Tab.Er.Prt) 40 meq PO DAILY PRN PRN Reason: Hypokalemia Stop: 09/07/24 15:48 Last Admin: 09/15/23 09:14 Dose: 40 meq Sodium Chloride (Sodium Chloride 0.9 % 10 Ml Syringe) 0 ml IV-PUSH PRN PRN PRN Reason: Flush Stop: 09/07/24 09:51 Last Admin: 09/16/23 06:26 Dose: 10 ml Sodium Chloride (Sodium Chloride 0.9 % 10 Ml Vial.Pf) 0 ml IV PRN PRN PRN Reason: ATIVAN DILUTION Stop: 09/07/24 19:07 Sodium Chloride (Sodium Chloride 0.9 % 10 Ml Syringe) 0 ml IV-PUSH PRN PRN PRN Reason: Flush Stop: 09/08/24 09:07 Last Admin: 09/16/23 09:27 Dose: 40 ml Thiamine HCl (Thiamine 100 Mg Tablet) 100 mg PO BID [facility] Stop: 09/07/24 20:59 Last Admin: 09/17/23 09:20 Dose: 100 mg Vancomycin HCl (Vancomycin Liquid 15,000 Mg/300 Ml Soln.Recon) 125 mg PO QID [facility] Stop: 09/20/23 22:01 Last Admin: 09/17/23 09:42 Dose: 125 mg Allergies fish oil Allergy (Unknown, Verified 09/08/23 09:53) Unknown Reaction Penicillins Allergy (Unknown, Verified 09/08/23 09:53) Unknown Reaction Sulfa (Sulfonamide Antibiotics) Allergy (Unknown, Verified 09/08/23 09:53) Unknown Reaction sulfamethoxazole [From Bactrim] Allergy (Verified 09/08/23 09:53) Unknown Reaction trimethoprim [From Bactrim] Allergy (Verified 09/08/23 09:53) Unknown Reaction Results - Nephrology Labs 09/17/23 11:14 09/17/23 11:14 Labs: 09/17/23 11:14 BUN 17 Creatinine 4.38 H D Radiology Impressions Impressions - last 24 hours: Impressions Brain MRI 09/16/23 10:35 IMPRESSION: NEGATIVE MRI OF THE BRAIN. Impression dictated by: Mary Menard M.D.09/17/2023 7:26 AM Dictation Location: [place] [address] Any impression(s) listed above is documentation that was entered by the reading physician into a diagnostic report(s) for Winnie Cai. I have reviewed the report(s) and am incorporating any findings in the treatment plan of this patient where applicable. 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 Patient had REED at the time of liver transplant as well and she did require short period of hemodialysis. Patient is back on dialysis since 05/04/2021. She was switched to IHD from PD on 09/07 after she fell and fractured her right arm. Patient has not been compliant with PD at home as well. (2) History of peritoneal dialysis: Assessment/Problem Details: * PD catheter was removed on 09/07 as it was broken and not usable. Patient also not able to do PD related to right arm fracture. * PD catheter tip culture still negative x 1 day (3) Leucocytosis: Assessment/Problem Details: Patient has leukocytosis 30,000 with broken PD catheter and evidence of PD catheter exit site erythema. Possibility of peritonitis cannot be excluded however patient does not have PD fluid in the abdomen to drain for testing. PD catheter was broken and cannot be used for manual exchange * CT scan of the abdomen suggestive of colitis. Blood and catheter tip cultures showed no growth. Antibiotics were stopped. * Stool for C. difficile is positive n 09/09, patient was started on oral vancomycin. (4) Anemia of renal disease: Assessment/Problem Details: Patient has significant drop of hemoglobin over the last week after fall and right humerus fracture. She has large hematoma over the right arm and chest. INR also mildly elevated. Last hemoglobin was 10 g/dL on August 19 * Hemoglobin did drop down to 6.2 g/dL on 09/07 with no evidence of active bleeding. Patient had 1 unit of packed RBCs * Iron stores and B12 are adequate however folic acid is low 5.7. Patient was started on oral folic acid 1 mg daily on 09/07. * Aranesp 40 mcg weekly with dialysis was started (5) Rhabdomyolysis: Assessment/Problem Details: Patient has elevated CPK with mild rhabdomyolysis s/p fall. CPK is trending down (6) History of shoulder fracture: Assessment/Problem Details: Patient has right humerus fracture s/p fall after she tripped at home. (7) Liver transplant status: Assessment/Problem Details: Patient status post liver transplant at [facility] on October 2014. She has mild elevated AST however ALT and bilirubin are normal. There is question that the patient still drinking vodka however is not confirmed. INR is elevated. Plan * Last hemodialysis session was yesterday without complication. Next hemodialysis session will be tomorrow as per the regular schedule * Hemoglobin is up to 8.1 g deciliter. Continue Aranesp 60 mcg and Ferrlecit 62.5 mg weekly with dialysis. She has adequate iron stores. * Patient on oral vancomycin for C. difficile colitis. * Continue current liver transplant medications including mycophenolate 720 mg p.o. daily and cyclosporine 75 mg p.o. daily. Patient has been noncompliant before. She still drinks alcohol. GI evaluated the patient earlier this admission * Monitor daily intake and output, renal panel and CBC to adjust medications, dialysis prescription and blood transfusion for hemoglobin below 7 g/dL Documented By: Sis Conn MD 09/17/23 1255 Signed By: <Electronically signed by Sis Conn MD> 09/17/23 1257 [facility] Work Phone: [phone]) 505-333104-24-2024 Consult note Author Emeka Canales [facility] September 17, 2023 10:41am Note Date/Time September 17, 2023 10: 41am [facility] [address] [place] [address] Physiatry (Rehab) Consult Note Signed Patient: Winnie Cai MR#: [id number] : 1985 Acct:[id number] Age/Sex: 38 / F Adm Date: 4 Loc: Room: [address] [place] [address] Type: ADM IN Attending Dr: Tani Meehan MD Copies to: NON STAFF MD Emeka Washington MD~ Etiologic Dx/Impairment Group Narrative Narrative: Other orthopedic, humeral fracture; encephalopathy HPI Consult Date: 09/17/23 Requesting Physician: Tani Meehan MD Primary Care Provider: NON STAFF Consult Narrative Reason for consult: IRF evaluation HPI: Ms. Cai is a 38 year old female history of alcoholic liver failure status postliver transplant 2014, ESRD on peritoneal dialysis since 2020, with multifactorial functional impairment in the setting of metabolic encephalopathy due to alcohol withdrawal and multiple medications, and recent nondisplaced proximal humerus fracture. After fall with humeral fracture she was discharged to home. She was unable to perform peritoneal dialysis adequately and became encephalopathic ultimately presenting back to the hospital. External dialysis catheter infection on admission, this was removed. She had a tunneled hemodialysis catheter placed and was started on hemodialysis yesterday. Neurology following for mental status changes, MRI brain negative feel multifactorial metabolic encephalopathy as noted above. Non weightbearing to the right upper extremity with sling for comfort per orthopedics. Also on contact precautions for c.diff colitis. She's tearful today. Wants to see her dog. Aunt is at bedside, reviewed discharge options. Patient and family want IRF before returning to home. Complex psychosocial issues. Review of Systems Review of Systems All other systems reviewed & are negative unless noted below or in HPI [facility] Medical History Tobacco dependence Thyroid dysfunction Accelerated essential hypertension Anxiety History of shoulder fracture right History of peritoneal dialysis Family History Family/Other Legacy FamHx Problem: SISTER IS NON MEDICAL:NO CHILDREN Social History Smoking Status: Current every day smoker Tobacco Type: cigarettes Substance Use Type: Alcohol and Marijuana Substance Abuse Comment: Pt. smokes marijuana a couple times a day Tox screen sent Meds Medications and Allergies Allergies fish oil Allergy (Unknown, Verified 09/08/23 09:53) Unknown Reaction Penicillins Allergy (Unknown, Verified 09/08/23 09:53) Unknown Reaction Sulfa (Sulfonamide Antibiotics) Allergy (Unknown, Verified 09/08/23 09:53) Unknown Reaction sulfamethoxazole [From Bactrim] Allergy (Verified 09/08/23 09:53) Unknown Reaction trimethoprim [From Bactrim] Allergy (Verified 09/08/23 09:53) Unknown Reaction Home Medications alprazolam 0.25 mg tablet 0.25 mg PO QHS PRN sleep 09/08/23 [History Confirmed 09/08/23] calcium acetate 667 mg tablet 667 mg PO TID 09/08/23 [History Confirmed 09/08/23] cyclosporine 100 mg capsule 75 mg PO DAILY 09/08/23 [History Confirmed 09/08/23] epoetin mariano 10,000 unit/mL injection solution (Epogen) 10,000 unit subcut .weekly 09/08/23 [History Confirmed 09/08/23] escitalopram oxalate 5 mg tablet (Lexapro) 15 mg PO DAILY 09/08/23 [History Confirmed 09/08/23] gentamicin 0.1 % topical cream 1 applic topical DAILY 09/08/23 [History Confirmed 09/08/23] levothyroxine 75 mcg capsule 75 mcg PO DAILY 09/08/23 [History Confirmed 09/08/23] losartan 50 mg tablet 50 mg PO QHS 09/08/23 [History Confirmed 09/08/23] magnesium glycinate 100 mg tablet (Mag Glycinate) 100 mg PO BID 09/08/23 [History Confirmed 09/08/23] metoprolol succinate 50 mg tablet,extended release 24 hr 50 mg PO QHS 09/08/23 [History Confirmed 09/08/23] mycophenolate sodium 360 mg tablet,delayed release (Myfortic) 720 mg PO DAILY 09/08/23 [History Confirmed 09/08/23] omeprazole 20 mg capsule,delayed release 20 mg PO DAILY 09/08/23 [History Confirmed 09/08/23] orphenadrine citrate 100 mg tablet,extended release 100 mg PO BID 09/08/23 [History Confirmed 09/08/23] oxycodone-acetaminophen 5 mg-325 mg tablet 1 tab PO Q4HR PRN pain 09/08/23 [History Confirmed 09/08/23] potassium chloride 20 mEq tablet,extended release 20 meq PO DAILY 09/08/23 [History Confirmed 09/08/23] protein supplement 1 ea PO .three times a week 09/08/23 [History Confirmed 09/08/23] Exam Physical Exam Vital Signs: Temp Pulse Resp BP Pulse Ox O2 Del Method O2 Flow Rate 97.9 F 83 20 107/66 100 Room Air 6 09/17/23 07:50 09/17/23 07:50 09/17/23 07:50 09/17/23 07:50 09/17/23 07:50 09/17/23 07:50 09/08/23 19:23 Narrative: Pleasant, anxious and tearful. NAD Nonlabored breathing Abdomen soft non-tender Right arm ROM limited by pain, has ice packs in place Minimal edema. Results - Phys. Rehab Labs Labs: Laboratory Results - last 24 hr 09/16/23 09/16/23 09/16/23 07:10 12:23 17:52 POC Glucose 77 76 POC Glucose Comment Glu2: cleaned meter Blood Type O Positive Antibody Screen Negative Crossmatch (AHG) See Detail 09/17/23 09/17/23 00:25 07:46 POC Glucose 76 67 POC Glucose Comment Glu2: cleaned meter Blood Type Antibody Screen Crossmatch (AHG) Additional Results Results Comment: I reviewed clinical lab tests, radiology reports and obtained and summated medical records and have ordered follow up lab tests and imaging studies as needed for rehabilitation care. Assessment/Plan (1) Closed fracture of right proximal humerus: (2) ESRD (end stage renal disease) on dialysis: (3) Metabolic encephalopathy: (4) Alcohol abuse: (5) Liver transplant status: (6) Peritoneal dialysis catheter mechanical complication: (7) Anemia of renal disease: Plan Ms. Cai is a 38 year old female history of alcoholic liver failure status postliver transplant 2014, ESRD on peritoneal dialysis since 2020, with multifactorial functional impairment in the setting of metabolic encephalopathy due to alcohol withdrawal and multiple medications, and recent nondisplaced proximal humerus fracture, c. diff colitis. -Appropriate for IRF given medical complexity and complex psychosocial issues requiring interdisciplinary care. -Start pre-cert with insurance today. Primary Rehabilitation Diagnosis: Encephalopathy, right proximal humerus fracture Patient is appropriate for acute inpatient rehab facility once medically stable per primary service and consultants. The patient has functional deficits requiring both active and ongoing therapeutic intervention of at least 2 disciplines of therapy, physical therapy/Occupational Therapy +/- speech therapy. Patient has worked appropriately with multiple disciplines of therapy on acute care, and demonstrates ability to tolerate and participate and make reasonable gains with at least a 15 hour/week inpatient rehabilitation program. Due to medical complexity as noted above, rehabilitation physician supervision is both reasonable and necessary, including [id number] visits at least 3 days/week with the need to treat, manage and modify course of treatment, including participating in at least once weekly interdisciplinary team conferences. The patient requires multidisciplinary rehabilitation treatment including rehabilitation physician at least 3 times per week, 24-hour rehabilitation nursing, physical occupational therapy, plus/minus speech-language pathology, rehabilitation case management, Dietitian services. This case cannot be best/most appropriately managed at a lower level of care. Estimated length of rehabilitation stay:14 days Prior Level of Function: Independent Expected functional status at discharge from rehab: Independent Self-care (ADLs) : Independent Bed Mobility/Transfers: Independent Ambulation: Independent Cognition: Independent There is a reasonable plan in place for discharge to the community. Overall prognosis is fair to good to make functional gains that would make substantial difference in the eventual discharge setting. Patient was personally seen by me, Dr. Canales, on the day of encounter, reviewed the history and the relevant portions of the chart, including current orders, allied health and healthcare market consultant notes, labs/imaging and performed almeida elements of exam and I formulated the plan of care and facilitated the medical decision making. I completed a substantive portion of this encounter, the medical decision makingportion of this note in its entirety, including Allied health note review, nursing note review, healthcare market consultant note review, discussion with nursing and case management, and more than 50% of my time was spent on counseling and coordination of care, time spent 70 minutes Documented By: Emeka Canales MD 09/17/23 1033 Signed By: <Electronically signed by Emeka Canales MD> 09/17/23 10[address] [facility] Work Phone: 1([phone]) 548-781404-23-2024 Progress note Author Tani Meehan [facility] September 16, 2023 7:07pm Note Date/Time September 16, 2023 6:[address] [facility] [address] [place] [address] Hospitalist Progress Note Signed Patient: Winnie Cai MR#: [id number] : 1985 Acct:[id number] Age/Sex: 38 / F Adm Date: 4 Loc: Room: [address] [place] [address] Type: ADM IN Attending Dr: Tani Meehan MD Copies to: ~ Date of Service: 09/16/2023 Subjective Subjective Narrative: RN notes that patient was improved today and sat in the chair at bedside for approximately 3 hours after lunch. HD catheter was placed without issue this a.m. She does continue to complain of right upper extremity pain from fracture. Exam Physical Exam Vital Signs: Temp Pulse Resp BP Pulse Ox O2 Del Method O2 Flow Rate 98.4 F 80 18 93/58 L 99 Room Air 6 09/16/23 16:00 09/16/23 16:00 09/16/23 16:00 09/16/23 16:00 09/16/23 16:09/16/23 16:00 09/08/23 19:23 Narrative: Constitutional: Tired appearing, middle-aged WF, resting in bed in mild pain dueto right upper extremity injury HEENT: Dry mucous membranes Cardiovascular: RRR, no M/R/G, normal S1 and S2, no JVD Respiratory: Lungs clear to auscultation bilaterally, no wheezes, rales or rhonchi GI: Soft, NTND, normoactive bowel sounds : Deferred Neuro: AAO x3, no focal deficits. CN III-XII grossly intact, Strength 5/5 throughout Extremities: No clubbing, cyanosis. RUE edematous, in sling on my assessment. Very tender throughout the proximal portion of the right arm. Very limited range of motion secondary to pain. Psych: Patient calm, cooperative and conversant Objective Lab Results 09/16/23 04:44 09/16/23 04:44 Meds Allergies and Active Meds Allergies fish oil Allergy (Unknown, Verified 09/08/23 09:53) Unknown Reaction Penicillins Allergy (Unknown, Verified 09/08/23 09:53) Unknown Reaction Sulfa (Sulfonamide Antibiotics) Allergy (Unknown, Verified 09/08/23 09:53) Unknown Reaction sulfamethoxazole [From Bactrim] Allergy (Verified 09/08/23 09:53) Unknown Reaction trimethoprim [From Bactrim] Allergy (Verified 09/08/23 09:53) Unknown Reaction Active Meds: Active Medications Generic Name Dose Route Start Last Admin Trade Name Freq PRN Reason Stop Dose Admin Calcium Acetate 667 mg 09/09/23 12:00 09/16/23 16:35 Calcium Acetate 667 Mg Capsule PO 09/08/24 11:59 667 mg TID.WITH.MEALS SERENA Administration Clotrimazole 10 mg 09/09/23 18:00 09/16/23 17:27 Clotrimazole Alba 10 Mg MUCOUS MEM 09/08/24 17:59 10 mg 5XDAILY SERENA Administration Cyclosporine 75 mg 09/09/23 11:30 09/16/23 13:28 Cyclosporine Modified 25 Mg Capsule PO 09/08/24 11:29 75 mg DAILY SERENA Administration Darbepoetin Mariano 60 mcg 09/11/23 09:30 09/11/23 14:03 Darbepoetin Mariano In Polysorbat 60 Mcg/Ml Vial IV-PUSH 09/10/24 09:29 60 mcg Th@0900 SERENA Administration Protocol Dextrose 0 gm 09/08/23 17:36 09/08/23 18:00 Dextrose 50% In Water 25 Gm/50 Ml Syringe IV-PUSH 09/07/24 17:35 25 gm PRN PRN Administration Hypoglycemia Escitalopram Oxalate 15 mg 09/09/23 11:30 09/16/23 13:27 Escitalopram 5 Mg Tablet PO 09/08/24 11:29 15 mg DAILY SERENA Administration Ferric Sodium Gluconate Complex 62.5 mg 09/11/23 09:30 09/11/23 14:03 Sodium Ferric Gluconat/Sucrose 62.5 Mg/5 Ml Vial IV-PUSH 09/10/24 09:29 62.5 mg Th@0900 SERENA Administration Folic Acid 5 mg 09/12/23 09:00 09/16/23 13:27 Folic Acid 1 Mg Tablet PO 09/11/24 08:59 5 mg DAILY SERENA Administration Heparin Sodium (Porcine) 2,600 unit 09/11/23 14:06 09/13/23 12:07 Heparin 10,000 Unit/10 Ml Vial IV 09/10/24 14:05 2,600 unit PRN PRN Administration Dialysis Heparin Sodium (Porcine) 4,100 unit 09/16/23 09:18 09/16/23 09:27 Heparin 10,000 Unit/10 Ml Vial IV 09/15/24 09:17 4,100 unit PRN PRN Administration Dialysis Sodium Chloride 1,000 mls @ 0 mls/hr 09/09/23 09:08 09/16/23 10:05 0.9% Sodium Chloride 1,000 Ml MISCELLANE 09/08/24 09:07 Infused .Q0M PRN Infusion Dialysis As Directed Sodium Chloride 500 mls @ 20 mls/hr 09/16/23 05:39 09/16/23 08:13 0.9% Sodium Chloride 500 Ml IV 09/17/23 06:38 Infused ONCE ONE Infusion Levothyroxine Sodium 75 mcg 09/09/23 11:00 09/16/23 06:24 Levothyroxine 75 Mcg Tablet PO 09/08/24 10:59 Not Given DAILY@0630 [facility] Lidocaine HCl 0.1 ml 09/16/23 05:39 Lidocaine 1% 50 Ml Vial INTRADERMA PREOP PRN Venipuncture x 1 Dose Magnesium Oxide 200 mg 09/10/23 09:00 09/16/23 13:28 Magnesium Oxide 400 Mg Tablet PO 09/09/24 08:59 200 mg DAILY SERENA Administration Metoprolol Succinate 50 mg 09/08/23 22:00 09/15/23 22:35 Metoprolol Succinate 50 Mg Tab.Er.24h PO 09/07/24 21:59 50 mg QHS SERENA Administration Morphine Sulfate 1 mg 09/12/23 19:31 09/16/23 03:38 Morphine Sulfate 2 Mg/Ml Vial IV-PUSH 1 mg Q4H PRN Administration Pain Scale 7 - 10 Multivitamins 1 tab 09/09/23 09:00 09/16/23 13:28 Multivitamin 1 Tab Tablet PO 09/08/24 08:59 1 tab DAILY SERENA Administration Mycophenolate Sodium 720 mg 09/09/23 11:30 09/16/23 13:30 Mycophenolate Sodium 180 Mg Tablet. *Nf* PO 09/08/24 11:29 720 mg DAILY SERENA Administration Nicotine 1 each 09/15/23 15:09 Nicotine Patch 21 Mg/24hr 1 Each Patch.Td24 TRANSDERML 10/27/23 09:01 DAILY PRN Nicotine Cravings Ondansetron HCl 4 mg 09/08/23 15:49 09/11/23 14:02 Ondansetron 4 Mg/2 Ml Vial IV-PUSH 09/07/24 15:48 4 mg Q6H PRN Administration Nausea And Vomiting Oxycodone/Acetaminophen 1 tab 09/08/23 15:44 09/16/23 16:34 Oxycodone/Acetaminophen 5-325 Mg Tablet PO 1 tab Q4HR PRN Administration pain Pantoprazole Sodium 40 mg 09/12/23 09:00 09/16/23 13:28 Pantoprazole 40 Mg Tablet. PO 09/11/24 08:59 40 mg DAILY SERENA Administration Potassium Chloride 40 meq 09/08/23 15:49 09/15/23 09:14 Potassium Chloride Er 20 Meq Tab.Er.Prt PO 09/07/24 15:48 40 meq DAILY PRN Administration Hypokalemia Sodium Chloride 0 ml 09/08/23 09:52 09/16/23 06:26 Sodium Chloride 0.9 % 10 Ml Syringe IV-PUSH 09/07/24 09:51 10 ml PRN PRN Administration Flush Sodium Chloride 0 ml 09/08/23 19:08 Sodium Chloride 0.9 % 10 Ml Vial.Pf IV 09/07/24 19:07 PRN PRN ATIVAN DILUTION Sodium Chloride 0 ml 09/09/23 09:08 09/16/23 09:27 Sodium Chloride 0.9 % 10 Ml Syringe IV-PUSH 09/08/24 09:07 40 ml PRN PRN Administration Flush Thiamine HCl 100 mg 09/08/23 21:00 09/16/23 10:16 Thiamine 100 Mg Tablet PO 09/07/24 20:59 Not Given BID SERENA Vancomycin HCl 125 mg 09/11/23 22:30 09/16/23 17:27 Vancomycin Liquid 15,000 Mg/300 Ml Soln.Recon PO 09/20/23 22:01 125 mg QID SERENA Administration A&P - Hospitalist Assessment/Plan (1) Peritoneal dialysis catheter mechanical complication: (2) Liver transplant status: (3) Anemia of renal disease: (4) Rhabdomyolysis: (5) Dehydration: Plan Assessment And Plan: 38F with PMH of HTN, history of Alcoholic liver failure (s/p transplant at [facility] 2014), 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 Diff infection Remains afebrile, hemodynamically stable, leukocytosis improving CT abd shows diffuse wall thickening within the colon with accompanying pericolonic fat stranding. This is consistent with colitis which may be infectious or inflammatory. Also considered PD catheter malfunction, blood culture from catheter tip is negative She was started empirically on broad spectrum IV antibiotics with Invanz (PNC allergy) and Vancomycin IV intially. C.diff came back positive which explained her leukocytosis. given no sign of other infection and negative blood Cx broad spectrum IV was discontinued -Continue vancomycin PO [id number] Acute on Chronic Anemia - Ruled out Chronic Anemia of CKD Hb on presentation 7.3. PLT > 50. INR 1.4 (vitamin K oral was given which improves INR to 1.1). Ferritin 874 , Transferrin is low, Reticulocyte count low , B12 up to 3900 . No recent Hb to compare. no overt bleeding. she [facility]. GI evaluated the patient and advised that her anemia is due to ESRD with no endoscopic evaluation was advised at thistime due to lack of evidence of signs of overt bleeding. Hg dropped to 6.2 with hydration she was transfused one unit of blood with improvement of her Hg. her Hb had been stable after that which more consistent of Chronic Anemia rather to be acute anemia fo blood loss Folate Deficiency Folate low 5.7 she was started on supplement ESRD PD cath dysfunction Severe Hyponatremia - resolved Nephrology was consulted for the management of dialysis and ESRD complication, recommendation appreciated. PD cath removed by General surgery and temporary R groin HD catheter placed by pulmonary -Underwent tunneled HD cath today Liver Transplant she has liver transplant at [facility] back in 2014 due to Alcoholic liver failure. family said she may be she has not been taking her antirejection mediation. there is a high possibility of noncompliance. -Continue home anti-rejection medications Acute Metabolic Encephalopathy Improving. Likely multifactorial in the setting of possible uremic encephalopathy, alcohol withdrawal, acute C. difficile infection. Ammonia levelalso elevated, but low suspicion that etiology is hepatic in origin. -neurology recommendation appreciated; further workup per their recommendations -Agree with MRI brain -Treat C. difficile infection, maintain on HD schedule, hold on lactulose administration Elevated Troponin In the setting of poor renal clearance, sepsis from C. difficile. Patient has no cardiorespiratory complaints. No EKG changes present Recent right traumatic proximal humerus fracture there is edema in her right arm and with some ecchymosis . there is no warmness, tenderness (lower form the shoulder) or erythema. Patient does continue to complain of pain. Seen on x-ray at [facility] on 09/01/2023. Orthopedic consult for possiblelate complication of humerus fracture. Discussed surgical versus conservative options with family. surgical intervention was not recommended, and she is to follow as outpatient. Due to weak pulse in her right arm PVR UE was done which was Normal -Nonweightbearing right upper extremity and sling for comfort -Pain control with morphine, Percocet-will be cautious with these medications given patient's liver and kidney issues Probable EtOH Abuse Disorder/withdrawal There is conflicting information about her drinking habit. The family doesn't know if she drinks at home. the patient has vague answers about the last time she had a drink. she reported to RN on admission that she still drinks. Blood alcohol concentration is not detected on admission -Can discontinue CIWA protocol given that patient is likely out of the withdrawal window and mental status has improved -Multivitamin/folic acid/Thiamine -Symptom control and supportive care Sore throat/Oral Candidiasis There was Oral white Mucosal Lesions on her tongue which is slowly getting better local antifungal treatment -May switch to nystatin if not improving more in the next day or 2 Hypothyroidism TSH wnl; Synthroid was continued Poor Appetite I encouraged oral intake diet supplements dietitian input noted Rhabdomyolysis - resolved CK up to 4600 on admission She was given IVF. CK improved to normal Physical Deconditioning Secondary to multiple acute medical issues. Will need to increase work with PT/OT this week -Plan for SNF on discharge Chronic diseases: Unless mentioned Above, Essential home medications have been continued. DVT Px: SCDs Disposition: SNF on discharge, increased work with PT/OT Plan of care Discussed with: the medical team, the patient and and grandmother at bedside Documented By: Tani Meehan MD 4 1851 Signed By: <Electronically signed by Tani Meehan MD> 09/16/23 [address] [facility] Work Phone: [phone] 607-797404-23-2024 Progress note Author Sis Conn [facility] September 16, 2023 11:49am Note Date/Time September 16, 2023 11: 49am [facility] [address] [place] [address] Nephrology Progress Note Signed Patient: Winnie Cai MR#: [id number] : 1985 Acct:[id number] Age/Sex: 38 / F Adm Date: 4 Loc: Room: [address] [place] [address] Type: ADM IN Attending Dr: Tani Meehan MD Copies to: ~ Date of Service: 09/16/2023 Subjective Subjective Narrative: Ms. 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 PD was started at [place] however he moved to [place] closer to her home. She has a history of liver transplant due to alcoholic liver cirrhosis at [facility] 2014. She did require hemodialysis in the perioperative period and later on was transitioned to PD. Patient has been noncompliant with peritoneal dialysis and missing multiple treatments at home per her records. Patient was brought to the ER on 09/07 as she has been significantly weak and dehydrated. Patient sustained a fall after she tripped last week and went to [facility] ER but she was found to have fracture of the right head of humerus. Right hand currently in sling dressing she is supposed to see orthopedics as outpatient. Patient was not able to do peritoneal dialysis at home since she has limited mobility of the right arm. Patient reported that she has not been eating or drinking over the last few days. Evaluation in the ER showed large hematoma around the shoulder and the chest. She was tachycardic 111 however blood pressure 115/73. No fever or chills. WBCs count was found to be [id number]. Patient was started empirically on vancomycin and Zosyn after 2 sets ofblood culture was obtained. Hemoglobin was low 7.3 compared to 10 g/dL on . She has mildly elevated INR 1.4 despite she is not on any blood thinners medication. There is a report by nursing staff that patient still drinking vodka however it does not confirm. Ethyl alcohol level on admission was less than 10 mg/dL. Interval history: Patient was seen and examined during hemodialysis session today. Right IJ tunneled catheter was replaced earlier today. Patient still slightly drowsy from anesthetic agent effect Right IJ tunneled catheter is functioning well with a blood flow rate 350. Ultrafiltration is a 1 L PD catheter was removed earlier this admission. Patient remains on oral vancomycin for C. difficile colitis. Diarrhea has improved No nausea no vomiting. No shortness of breath. No abdominal pain. Exam Physical Exam Vital Signs: Temp Pulse Resp BP Pulse Ox O2 Del Method O2 Flow Rate 97.2 F L 80 14 84/55 L 100 Room Air 6 09/16/23 09:00 09/16/23 11:27 09/16/23 09:00 09/16/23 11:27 09/16/23 09:00 09/16/23 09:00 09/08/23 19:23 Narrative: General: No acute distress sleeping during my encounter Head :atraumatic normocephalic Eyes: PERRLA. Neck: no JVD no bruit. Heart: S1-S2. RRR Respiratory: Clear to auscultation. No wheezing. No crackles Abdomen: Soft, positive bowel sounds,no tenderness. Neurology: Awake alert oriented x3. No focal deficits Extremity. No cyanosis. No edema Skin: No skin rash Objective Intake and Output I&O: Intake & Output 09/13/23 09/14/23 09/15/23 09/16/23 23:59 23:59 23:59 23:59 Intake Total 1350 / 1350 550 / 550 700 / 700 1100 / 1100 Output Total 2501 / 2501 Balance -1151 / -1151 550 / 550 700 / 700 1100 / 1100 Weight 147 lb 7.828 oz 142 lb 10.225 oz 140 lb 6.951 oz 140 lb 6.951 oz Meds and Allergies Meds: Active Medications Calcium Acetate (Calcium Acetate 667 Mg Capsule) 667 mg PO TID.WITH.MEALS [facility] Stop: 09/08/24 11:59 Last Admin: 09/16/23 10:15 Dose: Not Given Clotrimazole (Clotrimazole Alba 10 Mg) 10 mg MUCOUS MEM 5XDAILY [facility] Stop: 09/08/24 17:59 Last Admin: 09/16/23 10:16 Dose: Not Given Cyclosporine (Cyclosporine Modified 25 Mg Capsule) 75 mg PO DAILY [facility] Stop: 09/08/24 11:29 Last Admin: 09/15/23 09:15 Dose: 75 mg Darbepoetin Mariano (Darbepoetin Mariano In Polysorbat 60 Mcg/Ml Vial) 60 mcg IV-PUSHTh@0900 [facility]; Protocol Stop: 09/10/24 09:29 Last Admin: 09/11/23 14:03 Dose: 60 mcg Dextrose (Dextrose 50% In Water 25 Gm/50 Ml Syringe) 0 gm IV-PUSH PRN PRN PRN Reason: Hypoglycemia Stop: 09/07/24 17:35 Last Admin: 09/08/23 18:00 Dose: 25 gm Escitalopram Oxalate (Escitalopram 5 Mg Tablet) 15 mg PO DAILY [facility] Stop: 09/08/24 11:29 Last Admin: 09/15/23 09:14 Dose: 15 mg Ferric Sodium Gluconate Complex (Sodium Ferric Gluconat/Sucrose 62.5 Mg/5 Ml Vial) 62.5 mg IV-PUSH Th@0900 [facility] Stop: 09/10/24 09:29 Last Admin: 09/11/23 14:03 Dose: 62.5 mg Folic Acid (Folic Acid 1 Mg Tablet) 5 mg PO DAILY [facility] Stop: 09/11/24 08:59 Last Admin: 09/15/23 09:15 Dose: 5 mg Heparin Sodium (Porcine) (Heparin 10,000 Unit/10 Ml Vial) 2,600 unit IV PRN PRN PRN Reason: Dialysis Stop: 09/10/24 14:05 Last Admin: 09/13/23 12:07 Dose: 2,600 unit Heparin Sodium (Porcine) (Heparin 10,000 Unit/10 Ml Vial) 4,100 unit IV PRN PRN PRN Reason: Dialysis Stop: 09/15/24 09:17 Last Admin: 09/16/23 09:27 Dose: 4,100 unit Sodium Chloride (0.9% Sodium Chloride 1,000 Ml) 1,000 mls @ 0 mls/hr MISCELLANE.Q0M PRN PRN Reason: Dialysis Stop: 09/08/24 09:07 Last Infusion: 09/16/23 10:05 Dose: Infused Sodium Chloride (0.9% Sodium Chloride 500 Ml) 500 mls @ 20 mls/hr IV ONCE ONE Stop: 09/17/23 06:38 Last Infusion: 09/16/23 08:13 Dose: Infused Levothyroxine Sodium (Levothyroxine 75 Mcg Tablet) 75 mcg PO DAILY@0630 [facility] Stop: 09/08/24 10:59 Last Admin: 09/16/23 06:24 Dose: Not Given Lidocaine HCl (Lidocaine 1% 50 Ml Vial) 0.1 ml INTRADERMA PREOP PRN PRN Reason: Venipuncture x 1 Dose Magnesium Oxide (Magnesium Oxide 400 Mg Tablet) 200 mg PO DAILY [facility] Stop: 09/09/24 08:59 Last Admin: 09/15/23 09:16 Dose: 200 mg Metoprolol Succinate (Metoprolol Succinate 50 Mg Tab.Er.24h) 50 mg PO QHS [facility] Stop: 09/07/24 21:59 Last Admin: 09/15/23 22:35 Dose: 50 mg Morphine Sulfate (Morphine Sulfate 2 Mg/Ml Vial) 1 mg IV-PUSH Q4H PRN PRN Reason: Pain Scale 7 - 10 Last Admin: 09/16/23 03:38 Dose: 1 mg Multivitamins (Multivitamin 1 Tab Tablet) 1 tab PO DAILY [facility] Stop: 09/08/24 08:59 Last Admin: 09/15/23 09:14 Dose: 1 tab Mycophenolate Sodium (Mycophenolate Sodium 180 Mg Tablet. *Nf*) 720 mg PO DAILY [facility] Stop: 09/08/24 11:29 Last Admin: 09/15/23 09:16 Dose: 720 mg Nicotine (Nicotine Patch 21 Mg/24hr 1 Each Patch.Td24) 1 each TRANSDERML DAILY PRN PRN Reason: Nicotine Cravings Stop: 10/27/23 09:01 Ondansetron HCl (Ondansetron 4 Mg/2 Ml Vial) 4 mg IV-PUSH Q6H PRN PRN Reason: Nausea And Vomiting Stop: 09/07/24 15:48 Last Admin: 09/11/23 14:02 Dose: 4 mg Oxycodone/Acetaminophen (Oxycodone/Acetaminophen 5-325 Mg Tablet) 1 tab PO [id number] PRN Reason: pain Last Admin: 09/15/23 13:37 Dose: 1 tab Pantoprazole Sodium (Pantoprazole 40 Mg Tablet.Dr) 40 mg PO DAILY SERENA Stop: 09/11/24 08:59 Last Admin: 09/15/23 09:14 Dose: 40 mg Potassium Chloride (Potassium Chloride Er 20 Meq Tab.Er.Prt) 40 meq PO DAILY PRN PRN Reason: Hypokalemia Stop: 09/07/24 15:48 Last Admin: 09/15/23 09:14 Dose: 40 meq Sodium Chloride (Sodium Chloride 0.9 % 10 Ml Syringe) 0 ml IV-PUSH PRN PRN PRN Reason: Flush Stop: 09/07/24 09:51 Last Admin: 09/16/23 06:26 Dose: 10 ml Sodium Chloride (Sodium Chloride 0.9 % 10 Ml Vial.Pf) 0 ml IV PRN PRN PRN Reason: ATIVAN DILUTION Stop: 09/07/24 19:07 Sodium Chloride (Sodium Chloride 0.9 % 10 Ml Syringe) 0 ml IV-PUSH PRN PRN PRN Reason: Flush Stop: 09/08/24 09:07 Last Admin: 09/16/23 09:27 Dose: 40 ml Thiamine HCl (Thiamine 100 Mg Tablet) 100 mg PO BID SERENA Stop: 09/07/24 20:59 Last Admin: 09/16/23 10:16 Dose: Not Given Vancomycin HCl (Vancomycin Liquid 15,000 Mg/300 Ml Soln.Recon) 125 mg PO QID SERENA Stop: 09/20/23 22:01 Last Admin: 09/16/23 10:16 Dose: Not Given Allergies fish oil Allergy (Unknown, Verified 09/08/23 09:53) Unknown Reaction Penicillins Allergy (Unknown, Verified 09/08/23 09:53) Unknown Reaction Sulfa (Sulfonamide Antibiotics) Allergy (Unknown, Verified 09/08/23 09:53) Unknown Reaction sulfamethoxazole [From Bactrim] Allergy (Verified 09/08/23 09:53) Unknown Reaction trimethoprim [From Bactrim] Allergy (Verified 09/08/23 09:53) Unknown Reaction Results - Nephrology Labs 09/16/23 04:44 09/16/23 04:44 Labs: 09/16/23 04:44 BUN 28 H Creatinine 6.51 H D Albumin 2.2 L Radiology Impressions Impressions - last 24 hours: Impressions Chest X-Ray 09/16/23 00:00 IMPRESSION: There is a dual lumen tunneled right IJ catheter with the tip at the distal superior vena cava in satisfactory position. There is no pneumothorax. Impression dictated by: Sp Germain M.D.09/16/2023 8:42 AM Dictation Location: [place] [address] Any impression(s) listed above is documentation that was entered by the reading physician into a diagnostic report(s) for Winnie Cai. I have reviewed the report(s) and am incorporating any findings in the treatment plan of this patient where applicable. 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 Patient had REED at the time of liver transplant as well and she did require short period of hemodialysis. Patient is back on dialysis since 05/04/2021. She was switched to IHD from PD on 09/07 after she fell and fractured her right arm. Patient has not been compliant with PD at home as well. (2) History of peritoneal dialysis: Assessment/Problem Details: * PD catheter was removed on 09/07 as it was broken and not usable. Patient also not able to do PD related to right arm fracture. * PD catheter tip culture still negative x 1 day (3) Leucocytosis: Assessment/Problem Details: Patient has leukocytosis 30,000 with broken PD catheter and evidence of PD catheter exit site erythema. Possibility of peritonitis cannot be excluded however patient does not have PD fluid in the abdomen to drain for testing. PD catheter was broken and cannot be used for manual exchange * CT scan of the abdomen suggestive of colitis. Blood and catheter tip cultures showed no growth. Antibiotics were stopped. * Stool for C. difficile is positive n 09/09, patient was started on oral vancomycin. (4) Anemia of renal disease: Assessment/Problem Details: Patient has significant drop of hemoglobin over the last week after fall and right humerus fracture. She has large hematoma over the right arm and chest. INR also mildly elevated. Last hemoglobin was 10 g/dL on August 19 * Hemoglobin did drop down to 6.2 g/dL on 09/07 with no evidence of active bleeding. Patient had 1 unit of packed RBCs * Iron stores and B12 are adequate however folic acid is low 5.7. Patient was started on oral folic acid 1 mg daily on 09/07. * Aranesp 40 mcg weekly with dialysis was started (5) Rhabdomyolysis: Assessment/Problem Details: Patient has elevated CPK with mild rhabdomyolysis s/p fall. CPK is trending down (6) History of shoulder fracture: Assessment/Problem Details: Patient has right humerus fracture s/p fall after she tripped at home. (7) Liver transplant status: Assessment/Problem Details: Patient status post liver transplant at [facility] on October 2014. She has mild elevated AST however ALT and bilirubin are normal. There is question that the patient still drinking vodka however is not confirmed. INR is elevated. Plan * Hemodialysis session today with a blood flow rate 350, dialysate flow rate 500 [place] for additional 1 L. Hemodialysis access right IJ tunneled catheter which was placed September 15 * Will keep the patient on Friday scheduled for now * Hemoglobin is a stable at 7.3 g/dL . Continue Aranesp 60 mcg and Ferrlecit 62.5 mg weekly with dialysis. She has adequate iron stores. * Patient on oral vancomycin for C. difficile colitis. * Continue current liver transplant medications including mycophenolate 720 mg p.o. daily and cyclosporine 75 mg p.o. daily. Patient has been noncompliant before. She still drinks alcohol. GI evaluated the patient earlier this admission * Monitor daily intake and output, renal panel and CBC to adjust medications, dialysis prescription and blood transfusion for hemoglobin below 7 g/dL Documented By: Sis Conn MD 09/16/23 1146 Signed By: <Electronically signed by Sis Conn MD> 09/16/23 1149 [facility] Work Phone: [phone]) 785-843504-22-2024 Progress note Author Sis Conn [facility] September 15, 2023 1:00pm Note Date/Time September 15, 2023 1:[address] [facility] [address] [place] [address] Nephrology Progress Note Signed Patient: Winnie Cai MR#: [id number] : 1985 Acct:[id number] Age/Sex: 38 / F Adm Date: 4 Loc: 4 Room: 5O0300-6 Type: ADM IN Attending Dr: Tani Meehan MD Copies to: ~ Date of Service: 09/15/2023 Subjective Subjective Narrative: Ms. 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 PD was started at [place] however he moved to [place] closer to her home. She has a history of liver transplant due to alcoholic liver cirrhosis at [facility] 2014. She did require hemodialysis in the perioperative period and later on was transitioned to PD. Patient has been noncompliant with peritoneal dialysis and missing multiple treatments at home per her records. Patient was brought to the ER on 09/07 as she has been significantly weak and dehydrated. Patient sustained a fall after she tripped last week and went to [facility] ER but she was found to have fracture of the right head of humerus. Right hand currently in sling dressing she is supposed to see orthopedics as outpatient. Patient was not able to do peritoneal dialysis at home since she has limited mobility of the right arm. Patient reported that she has not been eating or drinking over the last few days. Evaluation in the ER showed large hematoma around the shoulder and the chest. She was tachycardic 111 however blood pressure 115/73. No fever or chills. WBCs count was found to be ,000. Patient was started empirically on vancomycin and Zosyn after 2 sets ofblood culture was obtained. Hemoglobin was low 7.3 compared to 10 g/dL on . She has mildly elevated INR 1.4 despite she is not on any blood thinners medication. There is a report by nursing staff that patient still drinking vodka however it does not confirm. Ethyl alcohol level on admission was less than 10 mg/dL. Interval history: Patient was seen and examined in her room. Patient is sitting up in the bed. Awake alert oriented x 3 Patient is complaining of right upper extremity pain. She still has temporary hemodialysis catheter. Vascular surgery team is following the patient for tunneled catheter placement The catheter was removed earlier this admission. Patient stated diarrhea has improved currently on oral vancomycin for C. difficile colitis No nausea no vomiting. No shortness of breath. No abdominal pain. Exam Physical Exam Vital Signs: Temp Pulse Resp BP Pulse Ox O2 Del Method O2 Flow Rate 98.6 F 88 18 116/69 97 Room Air 6 09/15/23 12:00 09/15/23 12:00 09/15/23 12:00 09/15/23 12:00 09/15/23 12:09/15/23 12:00 09/08/23 19:23 Narrative: General: No acute distress Head :atraumatic normocephalic Eyes: PERRLA. Neck: no JVD no bruit. Heart: S1-S2. RRR Respiratory: Clear to auscultation. No wheezing. No crackles Abdomen: Soft, positive bowel sounds,no tenderness. Neurology: Awake alert oriented x3. No focal deficits Extremity. No cyanosis. No edema Skin: No skin rash Objective Intake and Output I&O: Intake & Output 09/12/23 09/13/23 09/14/23 09/15/23 23:59 23:59 23:59 23:59 Intake Total 950 / 950 1350 / 1350 550 / 550 250 / 250 Output Total 2501 / 2501 Balance 950 / 950 -1151 / -1151 550 / 550 250 / 250 Weight 147 lb 0.773 oz 147 lb 7.828 oz 142 lb 10.225 oz 140 lb 6.951 oz Meds and Allergies Meds: Active Medications Calcium Acetate (Calcium Acetate 667 Mg Capsule) 667 mg PO TID.WITH.MEALS [facility] Stop: 09/08/24 11:59 Last Admin: 09/15/23 11:45 Dose: 667 mg Clotrimazole (Clotrimazole Alba 10 Mg) 10 mg MUCOUS MEM 5XDAILY [facility] Stop: 09/08/24 17:59 Last Admin: 09/15/23 09:51 Dose: 10 mg Cyclosporine (Cyclosporine Modified 25 Mg Capsule) 75 mg PO DAILY [facility] Stop: 09/08/24 11:29 Last Admin: 09/15/23 09:15 Dose: 75 mg Darbepoetin Mariano (Darbepoetin Mariano In Polysorbat 60 Mcg/Ml Vial) 60 mcg IV-PUSHTh@0900 [facility]; Protocol Stop: 09/10/24 09:29 Last Admin: 09/11/23 14:03 Dose: 60 mcg Dextrose (Dextrose 50% In Water 25 Gm/50 Ml Syringe) 0 gm IV-PUSH PRN PRN PRN Reason: Hypoglycemia Stop: 09/07/24 17:35 Last Admin: 09/08/23 18:00 Dose: 25 gm Escitalopram Oxalate (Escitalopram 5 Mg Tablet) 15 mg PO DAILY [facility] Stop: 09/08/24 11:29 Last Admin: 09/15/23 09:14 Dose: 15 mg Ferric Sodium Gluconate Complex (Sodium Ferric Gluconat/Sucrose 62.5 Mg/5 Ml Vial) 62.5 mg IV-PUSH Th@0900 [facility] Stop: 09/10/24 09:29 Last Admin: 09/11/23 14:03 Dose: 62.5 mg Folic Acid (Folic Acid 1 Mg Tablet) 5 mg PO DAILY [facility] Stop: 09/11/24 08:59 Last Admin: 09/15/23 09:15 Dose: 5 mg Heparin Sodium (Porcine) (Heparin 10,000 Unit/10 Ml Vial) 2,600 unit IV PRN PRN PRN Reason: Dialysis Stop: 09/10/24 14:05 Last Admin: 09/13/23 12:07 Dose: 2,600 unit Sodium Chloride (0.9% Sodium Chloride 1,000 Ml) 1,000 mls @ 0 mls/hr MISCELLANE.Q0M PRN PRN Reason: Dialysis Stop: 09/08/24 09:07 Last Infusion: 09/13/23 12:08 Dose: Infused Levothyroxine Sodium (Levothyroxine 75 Mcg Tablet) 75 mcg PO DAILY@0630 [facility] Stop: 09/08/24 10:59 Last Admin: 09/15/23 09:17 Dose: 75 mcg Magnesium Oxide (Magnesium Oxide 400 Mg Tablet) 200 mg PO DAILY [facility] Stop: 09/09/24 08:59 Last Admin: 09/15/23 09:16 Dose: 200 mg Metoprolol Succinate (Metoprolol Succinate 50 Mg Tab.Er.24h) 50 mg PO QHS [facility] Stop: 09/07/24 21:59 Last Admin: 09/14/23 22:30 Dose: 50 mg Morphine Sulfate (Morphine Sulfate 2 Mg/Ml Vial) 1 mg IV-PUSH Q4H PRN PRN Reason: Pain Scale 7 - 10 Last Admin: 09/15/23 11:56 Dose: 1 mg Multivitamins (Multivitamin 1 Tab Tablet) 1 tab PO DAILY SERENA Stop: 09/08/24 08:59 Last Admin: 09/15/23 09:14 Dose: 1 tab Mycophenolate Sodium (Mycophenolate Sodium 180 Mg Tablet. *Nf*) 720 mg PO DAILY [facility] Stop: 09/08/24 11:29 Last Admin: 09/15/23 09:16 Dose: 720 mg Ondansetron HCl (Ondansetron 4 Mg/2 Ml Vial) 4 mg IV-PUSH Q6H PRN PRN Reason: Nausea And Vomiting Stop: 09/07/24 15:48 Last Admin: 09/11/23 14:02 Dose: 4 mg Oxycodone/Acetaminophen (Oxycodone/Acetaminophen 5-325 Mg Tablet) 1 tab PO [id number] PRN Reason: pain Last Admin: 09/15/23 09:14 Dose: 1 tab Pantoprazole Sodium (Pantoprazole 40 Mg Tablet.) 40 mg PO DAILY [facility] Stop: 09/11/24 08:59 Last Admin: 09/15/23 09:14 Dose: 40 mg Potassium Chloride (Potassium Chloride Er 20 Meq Tab.Er.Prt) 40 meq PO DAILY PRN PRN Reason: Hypokalemia Stop: 09/07/24 15:48 Last Admin: 09/15/23 09:14 Dose: 40 meq Sodium Chloride (Sodium Chloride 0.9 % 10 Ml Syringe) 0 ml IV-PUSH PRN PRN PRN Reason: Flush Stop: 09/07/24 09:51 Last Admin: 09/14/23 22:35 Dose: 10 ml Sodium Chloride (Sodium Chloride 0.9 % 10 Ml Vial.Pf) 0 ml IV PRN PRN PRN Reason: ATIVAN DILUTION Stop: 09/07/24 19:07 Sodium Chloride (Sodium Chloride 0.9 % 10 Ml Syringe) 0 ml IV-PUSH PRN PRN PRN Reason: Flush Stop: 09/08/24 09:07 Last Admin: 09/11/23 14:04 Dose: 40 ml Thiamine HCl (Thiamine 100 Mg Tablet) 100 mg PO BID SERENA Stop: 09/07/24 20:59 Last Admin: 09/15/23 09:15 Dose: 100 mg Vancomycin HCl (Vancomycin Liquid 15,000 Mg/300 Ml Soln.[facility]) 125 mg PO QID SERENA Stop: 09/20/23 22:01 Last Admin: 09/15/23 09:51 Dose: 125 mg Allergies fish oil Allergy (Unknown, Verified 09/08/23 09:53) Unknown Reaction Penicillins Allergy (Unknown, Verified 09/08/23 09:53) Unknown Reaction Sulfa (Sulfonamide Antibiotics) Allergy (Unknown, Verified 09/08/23 09:53) Unknown Reaction sulfamethoxazole [From Bactrim] Allergy (Verified 09/08/23 09:53) Unknown Reaction trimethoprim [From Bactrim] Allergy (Verified 09/08/23 09:53) Unknown Reaction Results - Nephrology Labs 09/15/23 04:36 09/15/23 04:36 Labs: 09/15/23 04:36 BUN 21 Creatinine 5.31 H D Radiology Impressions Impressions - last 24 hours: Any impression(s) listed above is documentation that was entered by the reading physician into a diagnostic report(s) for Winnie Cai. I have reviewed the report(s) and am incorporating any findings in the treatment plan of this patient where applicable. 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 Patient had REED at the time of liver transplant as well and she did require short period of hemodialysis. Patient is back on dialysis since 05/04/2021. She was switched to IHD from PD on 09/07 after she fell and fractured her right arm. Patient has not been compliant with PD at home as well. (2) History of peritoneal dialysis: Assessment/Problem Details: * PD catheter was removed on 09/07 as it was broken and not usable. Patient also not able to do PD related to right arm fracture. * PD catheter tip culture still negative x 1 day (3) Leucocytosis: Assessment/Problem Details: Patient has leukocytosis 30,000 with broken PD catheter and evidence of PD catheter exit site erythema. Possibility of peritonitis cannot be excluded however patient does not have PD fluid in the abdomen to drain for testing. PD catheter was broken and cannot be used for manual exchange * CT scan of the abdomen suggestive of colitis. Blood and catheter tip cultures showed no growth. Antibiotics were stopped. * Stool for C. difficile is positive n 09/09, patient was started on oral vancomycin. (4) Anemia of renal disease: Assessment/Problem Details: Patient has significant drop of hemoglobin over the last week after fall and right humerus fracture. She has large hematoma over the right arm and chest. INR also mildly elevated. Last hemoglobin was 10 g/dL on August 19 * Hemoglobin did drop down to 6.2 g/dL on 09/07 with no evidence of active bleeding. Patient had 1 unit of packed RBCs * Iron stores and B12 are adequate however folic acid is low 5.7. Patient was started on oral folic acid 1 mg daily on 09/07. * Aranesp 40 mcg weekly with dialysis was started (5) Rhabdomyolysis: Assessment/Problem Details: Patient has elevated CPK with mild rhabdomyolysis s/p fall. CPK is trending down (6) History of shoulder fracture: Assessment/Problem Details: Patient has right humerus fracture s/p fall after she tripped at home. (7) Liver transplant status: Assessment/Problem Details: Patient status post liver transplant at [facility] on October 2014. She has mild elevated AST however ALT and bilirubin are normal. There is question that the patient still drinking vodka however is not confirmed. INR is elevated. Plan * Patient had hemodialysis Friday. She is euvolemic. She still has low potassium 3.3 mmol/L in the setting of C. difficile colitis and poor oral intake. She is on potassium chloride 40 mEq as needed. * No need for hemodialysis session today. Next hemodialysis session tomorrow. * Still have temporary right femoral hemodialysis catheter. Vascular surgery team is following the patient for tunneled catheter placement * Hemoglobin slightly better at 7.5 g/dL . Continue Aranesp 60 mcg and Ferrlecit 62.5 mg weekly with dialysis. She has adequate iron stores. * Patient on oral vancomycin for C. difficile colitis. Antibiotics were stopped. WBCs count continues to improve * Continue current liver transplant medications including mycophenolate 720 mg p.o. daily and cyclosporine 75 mg p.o. daily. Patient has been noncompliant before. She still drinks alcohol. GI evaluated the patient earlier this admission * Monitor daily intake and output, renal panel and CBC to adjust medications, dialysis prescription and blood transfusion for hemoglobin below 7 g/dL Documented By: Sis Conn MD 09/15/23 1254 Signed By: <Electronically signed by Sis Conn MD> 09/15/23 1300 [facility] Work Phone: 1(342) 365-219704-22-2024 Progress note Author Tani Meehan [facility] September 15, 2023 12:32pm Note Date/Time September 15, 2023 12: 06pm [facility] [address] [place] [address] Hospitalist Progress Note Signed Patient: Winnie Cai MR#: [id number] : 1985 Acct:[id number] Age/Sex: 38 / F Adm Date: 4 Loc: Room: [address] [place] [address] Type: ADM IN Attending Dr: Tani Meehan MD Copies to: ~ Date of Service: 09/15/2023 Subjective Subjective Narrative: Patient mental status is improved today. She is tearful during my assessment. She states that her right arm is in pain and that she does also have pain in hermouth. She has her aunt and her grandmother at bedside. Bedside RN notes that she is more mentally aware today than on previous days. Exam Physical Exam Vital Signs: Temp Pulse Resp BP Pulse Ox O2 Del Method O2 Flow Rate 98.6 F 86 18 99/64 L 97 Room Air 6 09/15/23 07:44 09/15/23 07:44 09/15/23 07:44 09/15/23 07:44 09/15/23 07:44 09/15/23 07:45 09/08/23 19:23 Narrative: Constitutional: Tired appearing, middle-aged WF, resting in bed in mild pain dueto right upper extremity injury HEENT: Dry mucous membranes Cardiovascular: RRR, no M/R/G, normal S1 and S2, no JVD Respiratory: Lungs clear to auscultation bilaterally, no wheezes, rales or rhonchi GI: Soft, NTND, normoactive bowel sounds : Deferred Neuro: AAO x3, no focal deficits. CN III-XII grossly intact, Strength 5/5 throughout Extremities: No clubbing, cyanosis. RUE edematous, in sling on my assessment. Very tender throughout the proximal portion of the right arm. Very limited range of motion secondary to pain. Psych: Patient intermittently tearful throughout assessment Objective Lab Results 09/15/23 04:36 09/15/23 04:36 Meds Allergies and Active Meds Allergies fish oil Allergy (Unknown, Verified 09/08/23 09:53) Unknown Reaction Penicillins Allergy (Unknown, Verified 09/08/23 09:53) Unknown Reaction Sulfa (Sulfonamide Antibiotics) Allergy (Unknown, Verified 09/08/23 09:53) Unknown Reaction sulfamethoxazole [From Bactrim] Allergy (Verified 09/08/23 09:53) Unknown Reaction trimethoprim [From Bactrim] Allergy (Verified 09/08/23 09:53) Unknown Reaction Active Meds: Active Medications Generic Name Dose Route Start Last Admin Trade Name Freq PRN Reason Stop Dose Admin Calcium Acetate 667 mg 09/09/23 12:00 09/15/23 11:45 Calcium Acetate 667 Mg Capsule PO 09/08/24 11:59 667 mg TID.WITH.MEALS SERENA Administration Clotrimazole 10 mg 09/09/23 18:00 09/15/23 09:51 Clotrimazole Alba 10 Mg MUCOUS MEM 09/08/24 17:59 10 mg 5XDAILY SERENA Administration Cyclosporine 75 mg 09/09/23 11:30 09/15/23 09:15 Cyclosporine Modified 25 Mg Capsule PO 09/08/24 11:29 75 mg DAILY SERENA Administration Darbepoetin Mariano 60 mcg 09/11/23 09:30 09/11/23 14:03 Darbepoetin Mariano In Polysorbat 60 Mcg/Ml Vial IV-PUSH 09/10/24 09:29 60 mcg Th@0900 SERENA Administration Protocol Dextrose 0 gm 09/08/23 17:36 09/08/23 18:00 Dextrose 50% In Water 25 Gm/50 Ml Syringe IV-PUSH 09/07/24 17:35 25 gm PRN PRN Administration Hypoglycemia Escitalopram Oxalate 15 mg 09/09/23 11:30 09/15/23 09:14 Escitalopram 5 Mg Tablet PO 09/08/24 11:29 15 mg DAILY SERENA Administration Ferric Sodium Gluconate Complex 62.5 mg 09/11/23 09:30 09/11/23 14:03 Sodium Ferric Gluconat/Sucrose 62.5 Mg/5 Ml Vial IV-PUSH 09/10/24 09:29 62.5 mg Th@0900 SERENA Administration Folic Acid 5 mg 09/12/23 09:00 09/15/23 09:15 Folic Acid 1 Mg Tablet PO 09/11/24 08:59 5 mg DAILY SERENA Administration Heparin Sodium (Porcine) 2,600 unit 09/11/23 14:06 09/13/23 12:07 Heparin 10,000 Unit/10 Ml Vial IV 09/10/24 14:05 2,600 unit PRN PRN Administration Dialysis Sodium Chloride 1,000 mls @ 0 mls/hr 09/09/23 09:08 09/13/23 12:08 0.9% Sodium Chloride 1,000 Ml MISCELLANE 09/08/24 09:07 Infused .Q0M PRN Infusion Dialysis As Directed Levothyroxine Sodium 75 mcg 09/09/23 11:00 09/15/23 09:17 Levothyroxine 75 Mcg Tablet PO 09/08/24 10:59 75 mcg DAILY@0630 SERENA Administration Lorazepam 0 mg 09/08/23 19:05 09/13/23 00:47 Lorazepam 1 Mg Tablet PO 03/06/24 19:04 2 mg PROTOCOL PRN Administration Alcohol Withdrawal Protocol Lorazepam 0 mg 09/08/23 19:05 09/11/23 14:18 Lorazepam 2 Mg/Ml Vial IV-PUSH 03/06/24 19:04 2 mg PROTOCOL PRN Administration Alcohol Withdrawal Protocol Magnesium Oxide 200 mg 09/10/23 09:00 09/15/23 09:16 Magnesium Oxide 400 Mg Tablet PO 09/09/24 08:59 200 mg DAILY SERENA Administration Metoprolol Succinate 50 mg 09/08/23 22:00 09/14/23 22:30 Metoprolol Succinate 50 Mg Tab.Er.24h PO 09/07/24 21:59 50 mg QHS SERENA Administration Morphine Sulfate 1 mg 09/12/23 19:31 09/15/23 11:56 Morphine Sulfate 2 Mg/Ml Vial IV-PUSH 1 mg Q4H PRN Administration Pain Scale 7 - 10 Multivitamins 1 tab 09/09/23 09:00 09/15/23 09:14 Multivitamin 1 Tab Tablet PO 09/08/24 08:59 1 tab DAILY SERENA Administration Mycophenolate Sodium 720 mg 09/09/23 11:30 09/15/23 09:16 Mycophenolate Sodium 180 Mg Tablet. *Nf* PO 09/08/24 11:29 720 mg DAILY SERENA Administration Ondansetron HCl 4 mg 09/08/23 15:49 09/11/23 14:02 Ondansetron 4 Mg/2 Ml Vial IV-PUSH 09/07/24 15:48 4 mg Q6H PRN Administration Nausea And Vomiting Oxycodone/Acetaminophen 1 tab 09/08/23 15:44 09/15/23 09:14 Oxycodone/Acetaminophen 5-325 Mg Tablet PO 1 tab Q4HR PRN Administration pain Pantoprazole Sodium 40 mg 09/12/23 09:00 09/15/23 09:14 Pantoprazole 40 Mg Tablet. PO 09/11/24 08:59 40 mg DAILY SERENA Administration Potassium Chloride 40 meq 09/08/23 15:49 09/15/23 09:14 Potassium Chloride Er 20 Meq Tab.Er.Prt PO 09/07/24 15:48 40 meq DAILY PRN Administration Hypokalemia Sodium Chloride 0 ml 09/08/23 09:52 09/14/23 22:35 Sodium Chloride 0.9 % 10 Ml Syringe IV-PUSH 09/07/24 09:51 10 ml PRN PRN Administration Flush Sodium Chloride 0 ml 09/08/23 19:08 Sodium Chloride 0.9 % 10 Ml Vial.Pf IV 09/07/24 19:07 PRN PRN ATIVAN DILUTION Sodium Chloride 0 ml 09/09/23 09:08 09/11/23 14:04 Sodium Chloride 0.9 % 10 Ml Syringe IV-PUSH 09/08/24 09:07 40 ml PRN PRN Administration Flush Thiamine HCl 100 mg 09/08/23 21:00 09/15/23 09:15 Thiamine 100 Mg Tablet PO 09/07/24 20:59 100 mg BID SERENA Administration Vancomycin HCl 125 mg 09/11/23 22:30 09/15/23 09:51 Vancomycin Liquid 15,000 Mg/300 Ml Soln.Recon PO 09/20/23 22:01 125 mg QID SERENA Administration A&P - Hospitalist Assessment/Plan (1) Peritoneal dialysis catheter mechanical complication: (2) Liver transplant status: (3) Anemia of renal disease: (4) Rhabdomyolysis: (5) Dehydration: Plan Assessment And Plan: 38F with PMH of HTN, history of Alcoholic liver failure (s/p transplant at [facility] 2014), 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 Diff infection Remains afebrile, hemodynamically stable, leukocytosis improving CT abd shows diffuse wall thickening within the colon with accompanying pericolonic fat stranding. This is consistent with colitis which may be infectious or inflammatory. Also considered PD catheter malfunction, blood culture from catheter tip is negative She was started empirically on broad spectrum IV antibiotics with Invanz (PNC allergy) and Vancomycin IV intially. C.diff came back positive which explained her leukocytosis. given no sign of other infection and negative blood Cx. broad spectrum IV was discontinued -Continue vancomycin PO [id number] Acute on Chronic Anemia - Ruled out Chronic Anemia of CKD Hg of the presentation 7.3. PLT > 50. INR 1.4 (vitamin K oral was given which improves INR to 1.1). Ferritin 874 , Transferrin is low, Reticulocyte count low , B12 up to 3900 . No recent Hb to compare. no overt bleeding. [facility]. GI evaluated the patient and advised that her anemia is due to ESRD with no endoscopic evaluation was advised at thistime due to lack of evidence of signs of overt bleeding. Hg dropped to 6.2 with hydration she was transfused one unit of blood with improvement of her Hg. her Hb had been stable after that which more consistent of Chronic Anemia rather to be acute anemia fo blood loss Folate Deficiency Folate low 5.7 she was started on Supplement ESRD PD cath dysfunction Severe Hyponatremia - resolved Nephrology was consulted for the management of dialysis and ESRD complication, recommendation appreciated. PD cath removed by General surgery and temporary R groin HD catheter placed by pulmonary Vascular surgery consulted for tunneled hemodialysis catheter. plan possibly fornext week -Vascular surgery to plan on tunneled hemodialysis catheter, likely this week Liver Transplant she has liver transplant at [facility] back in 2014 due to Alcoholic liver failure. family said she may be she has not been taking her antirejection mediation. there is a high possibility of noncompliance. -Continue home anti-rejection medication Acute metabolic encephalopathy Improving. Likely multifactorial in the setting of possible uremic encephalopathy, alcohol withdrawal, acute C. difficile infection. Ammonia levelalso elevated, but low suspicion that etiology is hepatic in origin. -neurology recommendation appreciated; further workup per their recommendations -Agree with MRI brain -Treat C. difficile infection, maintain on HD schedule, hold on lactulose administration Elevated Troponin In the setting of poor renal clearance, sepsis from C. difficile. Patient has no cardiorespiratory complaints. No EKG changes present Recent right traumatic proximal humerus fracture there is edema in her right arm and with some ecchymosis . there is no warmness, tenderness (lower form the shoulder) or erythema. Patient does continue to complain of pain. Seen on x-ray at [facility] on 09/01/2023. Orthopedic consult for possiblelate complication of humerus fracture. Discussed surgical versus conservative options with family. surgical intervention was not recommended, and she is to follow as outpatient. Due to weak pulse in her right arm PVR UE was done which was Normal -Nonweightbearing right upper extremity and Sling for comfort -Pain control with morphine, Percocet-will be cautious with these medications given patient's liver and kidney issues Probable EtOH Abuse Disorder/withdrawal There is conflicting information about her drinking habit. The family doesn't know if she drinks at home. the patient has vague answers about the last time she had a drink. she reported to RN on admission that she still drinks. Blood alcohol concentration is not detected on admission -Can discontinue CIWA protocol given that patient is likely out of the withdrawal window and mental status has improved -Multivitamin/folic acid/Thiamine -Symptom control and supportive care Sore throat/Oral Candidiasis There was Oral white Mucosal Lesions on her tongue which is slowly getting better local antifungal treatment -May switch to nystatin if not improving more in the next day or 2 Hypothyroidism TSH wnl; Synthroid was continued Poor Appetite I encouraged oral intake diet supplements dietitian input noted Rhabdomyolysis - resolved CK up to 4600 on admission She was given IVF. CK improved to normal Physical Deconditioning Secondary to multiple acute medical issues. Will need to increase work with PT/OT this week -Plan for SNF on discharge Chronic diseases: Unless mentioned Above, Essential home medications have been continued. DVT Px: SCDs Disposition: SNF on discharge, increased work with PT/OT Plan of care Discussed with: the medical team, the patient and and grandmother at bedside Documented By: Tani Meehan MD [id number] Signed By: <Electronically signed by Tani Meehan MD> 09/15/23 1235 [facility] Work Phone: 1([phone] 113-874704-21-2024 Progress note Author Hortensia Colbertsaba [facility] September 14, 2023 7:12pm Note Date/Time September 14, 2023 6:[address] 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 Diff infection remain afebrile, hemodynamically stable, leukocytosis 14K CT abd shows diffuse wall thickening within the colon with accompanying pericolonic fat stranding. This is consistent with colitis which may be infectious or inflammatory. A small amount of peritoneal free fluid is noted with a peritoneal dialysis catheter in the left lower quadrant. C.Diff testing came back positive Vancomycin PO Sepsis related to C Diff infection The patient was found with severe leukocytosis with WBC up to 40K and tachycardia. initial lactic acid level was not elevated up. There is no sign of clear infection. Leukocytosis could be due to dehydration. Given her PD cathetermalfunction PD cath infection can?t be ruled out The patient received IVF in the ED. Then she was reevaluated after IVF within 6 hours: the Capillary refill is more than 3 seconds, Pulses present bilaterally and Skin normal for ethnicity. repeat lactate level was done she was started empirically on broad spectrum IV antibiotics with Invanz (PNC allergy) and Vancomycin IV . however C. diff came back positive which explain her leukocytosis. given no sign of other infection and negative blood Cx. broad spectrum IV was discontinued Acute on Chronic Anemia - Ruled out Chronic Anemia of CKD Hg of the presentation 7.3. PLT > 50. INR 1.4 (vitamin K oral was given which improves INR to 1.1). Ferritin 874 , Transferrin is low, Reticulocyte count low , B12 up to 3900 . No recent Hg to compare. no overt bleeding. she [facility]. GI evaluated the patient and advised that her anemia is due to ESRD with no endoscopic evaluation was advised at thistime due to lack of evidence of signs of overt bleeding. Hg dropped to 6.2 with hydration she was transfused one unit of blood with improvement of her Hg. her Hg has been stable after that which more consistent of Chronic Anemia rather to be acute anemia fo blood loss Folate Deficiency Folate low 5.7 she was started on Supplement ESRD PD cath dysfunction Severe hyponatremia - resolved Nephrology was consulted for the management of dialysis and ESRD complication, recommendation appreciated. PD cath removed by General surgery and temporary HD catheter placed by pulmonary. Vascular surgery consulted for tunneled hemodialysis catheter. plan possibly fornext week c/w HD Liver transplant she has liver transplant at [facility] back in 2014 due to Alcoholicliver failure. family said she may be she has not been taking her antirejection mediation. there is a high possibility of noncompliance. home antirejection medication was restart Encephalopathy the patient remain confused no change in her mental status ammonia is borderline elevated and her Etoh use history is possible but not clear. neurology recommendation appreciated Agree with MRI Elevated Troponin Mild not significant . she denied any chest pain . no EKG changes Recent right traumatic proximal humerus fracture there is edema in her right arm and with some ecchymosis . there is no warmness, tenderness (lower form the shoulder) or erythema. XR shoulder [facility] 09/01/2023 reported: Acute comminuted fracture of the surgical neck of the right proximal humerus demonstrating approximately 1cm anteromedial displacement and slight impaction.Suspect nondisplaced fracture extension into the greater tuberosity. Approximately 1 cm linear density adjacent to the greater tuberosity of the humeral head suspicious for acute fracture fragment. Differential includes calcium hydroxyapatite deposition and calcific tendinosis of the right rotator Cuff. The patient was treated conservatively at [facility] and was sent home. XR shoulder09/11 reported comminuted impacted fracture involving the right humeral head/neck with what appears to be periosteal reaction noted suggestive of healing response. Orthopedic consult for possible late complication of humerus fracture. who Discussed surgical versus conservative options with family. surgical intervention was not recommnded she is to follow as outpatient . Nonweightbearing right upper extremity and Sling for comfort were recommended due to weak pulse in her right arm PVR UE was done which was Normal. could be due her RUE swelling form c/w immobilization Pain control Probable EtOH Abuse Disorder/withdrawal there is conflicting information about her drinking habit. the family doesn't know if she drink at home. the patient has vague answer about the last time she had a drink . she reported to RN on admission that she still drinks. Blood alcohol concentration is not detected on admission PEth (send out) pending [facility] protocol Multivitamin/folic acid/Thiamine Symptom control and supportive care Sore throat/Oral Candidiasis There was Oral white Mucosal Lesions on her tongue which is slowly getting better local antifungal treatment hypothyroidism TSH wnl; Synthroid was continued Poor appetite i encouraged oral intake diet supplement dietitian input noted Rhabdomyolysis - resolved CK up to 4600 on admission She was given IVF. CK improved to normal hepatic encephalopathy - Ruled out ct brain shows no acute intracranial process Ammonia level was mildly elevated . lactulose was given with normalization of her ammonia. her mental status did not improve. GI did not think she has hepaticencephalopathy. her encephalopathy is likely due to other causes. lactulose was discontinued infected PD catheter - Ruled out there is no abdominal pain - Catheter Tip Cx negative INTERVAL HPI: As Above, Pt resting in bed. her mental status appear to be better Chronic diseases: Unless mentioned Above, Essential home medications have been continued. DVT Px: SCD Disposition: To be determined Plan of care Discussed with: the medical team L Exam Physical Exam Vital Signs: Temp Pulse Resp BP Pulse Ox O2 Del Method O2 Flow Rate 36.4 C 81 16 117/71 100 Room Air 6 09/14/23 15:51 09/14/23 15:51 09/14/23 15:51 09/14/23 15:51 09/14/23 15:51 09/14/23 15:51 09/08/23 19:23 Narrative: GEN: Cooperative, Not in acute distress. NECK:Supple, ? JVD LUNGS: CTA CV: S1S2 nl, ? M/R/G ABD: Soft, ND, NT, + BS, ? HSM EXT: No edema in LE bilaterally,, no calf muscle tenderness. swelling in the right arm with no warmness or tenderness . NEURO: no overt FND PSYCH: nl affect . difficultly taking due to tongue lesion Objective Lab Results 09/14/23 04:52 09/14/23 07:02 Meds Allergies and Active Meds Allergies fish oil Allergy (Unknown, Verified 09/08/23 09:53) Unknown Reaction Penicillins Allergy (Unknown, Verified 09/08/23 09:53) Unknown Reaction Sulfa (Sulfonamide Antibiotics) Allergy (Unknown, Verified 09/08/23 09:53) Unknown Reaction sulfamethoxazole [From Bactrim] Allergy (Verified 09/08/23 09:53) Unknown Reaction trimethoprim [From Bactrim] Allergy (Verified 09/08/23 09:53) Unknown Reaction Active Meds: Active Medications Generic Name Dose Route Start Last Admin Trade Name Freq PRN Reason Stop Dose Admin Calcium Acetate 667 mg 09/09/23 12:00 09/14/23 18:33 Calcium Acetate 667 Mg Capsule PO 09/08/24 11:59 Not Given TID.WITH.MEALS SERENA Clotrimazole 10 mg 09/09/23 18:00 09/14/23 18:33 Clotrimazole Alba 10 Mg MUCOUS MEM 09/08/24 17:59 10 mg 5XDAILY SERENA Administration Cyclosporine 75 mg 09/09/23 11:30 09/14/23 09:37 Cyclosporine Modified 25 Mg Capsule PO 09/08/24 11:29 75 mg DAILY SERENA Administration Darbepoetin Mariano 60 mcg 09/11/23 09:30 09/11/23 14:03 Darbepoetin Mariano In Polysorbat 60 Mcg/Ml Vial IV-PUSH 09/10/24 09:29 60 mcg Th@0900 SERENA Administration Protocol Dextrose 0 gm 09/08/23 17:36 09/08/23 18:00 Dextrose 50% In Water 25 Gm/50 Ml Syringe IV-PUSH 09/07/24 17:35 25 gm PRN PRN Administration Hypoglycemia Escitalopram Oxalate 15 mg 09/09/23 11:30 09/14/23 09:36 Escitalopram 5 Mg Tablet PO 09/08/24 11:29 15 mg DAILY SERENA Administration Ferric Sodium Gluconate Complex 62.5 mg 09/11/23 09:30 09/11/23 14:03 Sodium Ferric Gluconat/Sucrose 62.5 Mg/5 Ml Vial IV-PUSH 09/10/24 09:29 62.5 mg Th@0900 SERENA Administration Folic Acid 5 mg 09/12/23 09:00 09/14/23 09:36 Folic Acid 1 Mg Tablet PO 09/11/24 08:59 5 mg DAILY SERENA Administration Heparin Sodium (Porcine) 2,600 unit 09/11/23 14:06 09/13/23 12:07 Heparin 10,000 Unit/10 Ml Vial IV 09/10/24 14:05 2,600 unit PRN PRN Administration Dialysis Sodium Chloride 1,000 mls @ 0 mls/hr 09/09/23 09:08 09/13/23 12:08 0.9% Sodium Chloride 1,000 Ml MISCELLANE 09/08/24 09:07 Infused .Q0M PRN Infusion Dialysis As Directed Levothyroxine Sodium 75 mcg 09/09/23 11:00 09/14/23 05:28 Levothyroxine 75 Mcg Tablet PO 09/08/24 10:59 75 mcg DAILY@0630 SERENA Administration Lorazepam 0 mg 09/08/23 19:05 09/13/23 00:47 Lorazepam 1 Mg Tablet PO 03/06/24 19:04 2 mg PROTOCOL PRN Administration Alcohol Withdrawal Protocol Lorazepam 0 mg 09/08/23 19:05 09/11/23 14:18 Lorazepam 2 Mg/Ml Vial IV-PUSH 03/06/24 19:04 2 mg PROTOCOL PRN Administration Alcohol Withdrawal Protocol Magnesium Oxide 200 mg 09/10/23 09:00 09/14/23 09:37 Magnesium Oxide 400 Mg Tablet PO 09/09/24 08:59 200 mg DAILY SERENA Administration Metoprolol Succinate 50 mg 09/08/23 22:00 09/13/23 21:00 Metoprolol Succinate 50 Mg Tab.Er.24h PO 09/07/24 21:59 50 mg QHS SERENA Administration Morphine Sulfate 1 mg 09/12/23 19:31 09/14/23 09:37 Morphine Sulfate 2 Mg/Ml Vial IV-PUSH 1 mg Q4H PRN Administration Pain Scale 7 - 10 Multivitamins 1 tab 09/09/23 09:00 09/14/23 09:36 Multivitamin 1 Tab Tablet PO 09/08/24 08:59 1 tab DAILY SERENA Administration Mycophenolate Sodium 720 mg 09/09/23 11:30 09/14/23 11:10 Mycophenolate Sodium 180 Mg Tablet. *Nf* PO 09/08/24 11:29 720 mg DAILY SERENA Administration Ondansetron HCl 4 mg 09/08/23 15:49 09/11/23 14:02 Ondansetron 4 Mg/2 Ml Vial IV-PUSH 09/07/24 15:48 4 mg Q6H PRN Administration Nausea And Vomiting Oxycodone/Acetaminophen 1 tab 09/08/23 15:44 09/14/23 11:48 Oxycodone/Acetaminophen 5-325 Mg Tablet PO 1 tab Q4HR PRN Administration pain Pantoprazole Sodium 40 mg 09/12/23 09:00 09/14/23 09:37 Pantoprazole 40 Mg Tablet. PO 09/11/24 08:59 40 mg DAILY SERENA Administration Potassium Chloride 40 meq 09/08/23 15:49 09/14/23 09:37 Potassium Chloride Er 20 Meq Tab.Er.Prt PO 09/07/24 15:48 40 meq DAILY PRN Administration Hypokalemia Sodium Chloride 0 ml 09/08/23 09:52 09/13/23 12:07 Sodium Chloride 0.9 % 10 Ml Syringe IV-PUSH 09/07/24 09:51 40 ml PRN PRN Administration Flush Sodium Chloride 0 ml 09/08/23 19:08 Sodium Chloride 0.9 % 10 Ml Vial.Pf IV 09/07/24 19:07 PRN PRN ATIVAN DILUTION Sodium Chloride 0 ml 04/16/24 09:08 09/11/23 14:04 Sodium Chloride 0.9 % 10 Ml Syringe IV-PUSH 09/08/24 09:07 40 ml PRN PRN Administration Flush Thiamine HCl 100 mg 09/08/23 21:00 09/14/23 09:37 Thiamine 100 Mg Tablet PO 09/07/24 20:59 100 mg BID SERENA Administration Vancomycin HCl 125 mg 09/11/23 22:30 09/14/23 18:33 Vancomycin Liquid 15,000 Mg/300 Ml Soln.Recon PO 09/20/23 22:01 125 mg QID SERENA Administration A&P - Hospitalist Assessment/Plan (1) Peritoneal dialysis catheter mechanical complication: (2) Liver transplant status: (3) Anemia of renal disease: (4) Rhabdomyolysis: (5) Dehydration: Plan Documented By: Hortensia Cordero MD 09/14/231847 Signed By: <Electronically signed by Hortensia Cordero MD> 09/14/231911 [facility] Work Phone: 1(420) 309-615404-21-2024 Progress note Author Tima [facility] September 14, 2023 11:29am Note Date/Time September 14, 2023 11: 29am [facility] [address] [place] [address] Nephrology Progress Note Signed Patient: Winnie Cai MR#: [id number] : 1985 Acct:[id number] Age/Sex: 38 / F Adm Date: 4 Loc: Room: [address] [place] [address] Type: ADM IN Attending Dr: Tani Meehan MD Copies to: ~ Date of Service: 09/14/2023 Subjective Subjective Narrative: Ms. 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 PD was started at [place] however he moved to [place] closer to her home. She has a history of liver transplant due to alcoholic liver cirrhosis at [facility] 2014. She did require hemodialysis in the perioperative period and later on was transitioned to PD. Patient has been noncompliant with peritoneal dialysis and missing multiple treatments at home per her records. Patient was brought to the ER on 09/07 as she has been significantly weak and dehydrated. Patient sustained a fall after she tripped last week and went to [facility] ER but she was found to have fracture of the right head of humerus. Right hand currently in sling dressing she is supposed to see orthopedics as outpatient. Patient was not able to do peritoneal dialysis at home since she has limited mobility of the right arm. Patient reported that she has not been eating or drinking over the last few days. Evaluation in the ER showed large hematoma around the shoulder and the chest. She was tachycardic 111 however blood pressure 115/73. No fever or chills. WBCs count was found to be [id number]. Patient was started empirically on vancomycin and Zosyn after 2 sets ofblood culture was obtained. Hemoglobin was low 7.3 compared to 10 g/dL on . She has mildly elevated INR 1.4 despite she is not on any blood thinners medication. There is a report by nursing staff that patient still drinking vodka however it does not confirm. Ethyl alcohol level on admission was less than 10 mg/dL. Interval history: Patient had hemodialysis yesterday. She still has temporary hemodialysis catheter waiting for improvement of mental status before insertion of tunneled hemodialysis catheter possibly early next week. Vascular surgery consult Patient is awake in her bed. Mental function seems to be improving and able to answer questions appropriately. Patient is done with CIWA scale for alcohol withdrawal. She has mild encephalopathy in the setting of C. difficile colitis. WBCs count has markedly improved on oral vancomycin. She stated that diarrhea has improved. Exam Physical Exam Vital Signs: Temp Pulse Resp BP Pulse Ox O2 Del Method O2 Flow Rate 36.4 C 78 16 117/79 98 Room Air 6 09/14/23 08:00 09/14/23 08:00 09/14/23 08:00 09/14/23 08:00 09/14/23 08:00 09/14/23 08:00 09/08/23 19:23 Narrative: Constitutional: Still confused, looks ill and older than her stated age. HEENT: She has significant pallor. No jaundice or cyanosis. Mucous membranes are dry. Cardiovascular: RRR, 2/6 SM, normal S1-S2, no gallop or rub, No JVD Respiratory: Good bilateral air entry no wheezing or crackles Gastrointestinal: Soft, non tender, positive bowel sounds. PD catheter was removed as it was broken and the patient was not able to do PD at home because of right humerus fracture. Extremities: No edema Skin:Hematoma over the right arm extending to the chest Neurology: Awake, confused. She is able to respond to questions however she hasdifficulty finding words. Psych: Normal mood and affect Vascular access: Right temporary femoral hemodialysis catheter Objective Intake and Output I&O: Intake & Output 09/11/23 09/12/23 09/13/23 09/14/23 23:59 23:59 23:59 23:59 Intake Total 720 / 720 950 / 950 1350 / 1350 200 / 200 Output Total 2502 / 2502 2501 / 2501 Balance -1782 / -1782 950 / 950 -1151 / -1151 200 / 200 Weight 65.9 kg 66.7 kg 66.9 kg 64.7 kg Meds and Allergies Meds: Active Medications Calcium Acetate (Calcium Acetate 667 Mg Capsule) 667 mg PO TID.WITH.MEALS [facility] Stop: 09/08/24 11:59 Last Admin: 09/14/23 09:37 Dose: 667 mg Clotrimazole (Clotrimazole Alba 10 Mg) 10 mg MUCOUS MEM 5XDAILY [facility] Stop: 09/08/24 17:59 Last Admin: 09/14/23 11:11 Dose: 10 mg Cyclosporine (Cyclosporine Modified 25 Mg Capsule) 75 mg PO DAILY [facility] Stop: 09/08/24 11:29 Last Admin: 09/14/23 09:37 Dose: 75 mg Darbepoetin Mariano (Darbepoetin Mariano In Polysorbat 60 Mcg/Ml Vial) 60 mcg IV-PUSHTh@0900 [facility]; Protocol Stop: 09/10/24 09:29 Last Admin: 09/11/23 14:03 Dose: 60 mcg Dextrose (Dextrose 50% In Water 25 Gm/50 Ml Syringe) 0 gm IV-PUSH PRN PRN PRN Reason: Hypoglycemia Stop: 09/07/24 17:35 Last Admin: 09/08/23 18:00 Dose: 25 gm Escitalopram Oxalate (Escitalopram 5 Mg Tablet) 15 mg PO DAILY [facility] Stop: 09/08/24 11:29 Last Admin: 09/14/23 09:36 Dose: 15 mg Ferric Sodium Gluconate Complex (Sodium Ferric Gluconat/Sucrose 62.5 Mg/5 Ml Vial) 62.5 mg IV-PUSH Th@0900 [facility] Stop: 09/10/24 09:29 Last Admin: 09/11/23 14:03 Dose: 62.5 mg Folic Acid (Folic Acid 1 Mg Tablet) 5 mg PO DAILY SERENA Stop: 09/11/24 08:59 Last Admin: 09/14/23 09:36 Dose: 5 mg Heparin Sodium (Porcine) (Heparin 10,000 Unit/10 Ml Vial) 2,600 unit IV PRN PRN PRN Reason: Dialysis Stop: 09/10/24 14:05 Last Admin: 09/13/23 12:07 Dose: 2,600 unit Sodium Chloride (0.9% Sodium Chloride 1,000 Ml) 1,000 mls @ 0 mls/hr MISCELLANE.Q0M PRN PRN Reason: Dialysis Stop: 09/08/24 09:07 Last Infusion: 09/13/23 12:08 Dose: Infused Levothyroxine Sodium (Levothyroxine 75 Mcg Tablet) 75 mcg PO DAILY@0630 [facility] Stop: 09/08/24 10:59 Last Admin: 09/14/23 05:28 Dose: 75 mcg Lorazepam (Lorazepam 1 Mg Tablet) 0 mg PO PROTOCOL PRN; Protocol PRN Reason: Alcohol Withdrawal Stop: 03/06/24 19:04 Last Admin: 09/13/23 00:47 Dose: 2 mg Lorazepam (Lorazepam 2 Mg/Ml Vial) 0 mg IV-PUSH PROTOCOL PRN; Protocol PRN Reason: Alcohol Withdrawal Stop: 03/06/24 19:04 Last Admin: 09/11/23 14:18 Dose: 2 mg Magnesium Oxide (Magnesium Oxide 400 Mg Tablet) 200 mg PO DAILY SERENA Stop: 09/09/24 08:59 Last Admin: 09/14/23 09:37 Dose: 200 mg Metoprolol Succinate (Metoprolol Succinate 50 Mg Tab.Er.24h) 50 mg PO QHS SERENA Stop: 09/07/24 21:59 Last Admin: 09/13/23 21:00 Dose: 50 mg Morphine Sulfate (Morphine Sulfate 2 Mg/Ml Vial) 1 mg IV-PUSH Q4H PRN PRN Reason: Pain Scale 7 - 10 Last Admin: 09/14/23 09:37 Dose: 1 mg Multivitamins (Multivitamin 1 Tab Tablet) 1 tab PO DAILY [facility] Stop: 09/08/24 08:59 Last Admin: 09/14/23 09:36 Dose: 1 tab Mycophenolate Sodium (Mycophenolate Sodium 180 Mg Tablet. *Nf*) 720 mg PO DAILY [facility] Stop: 09/08/24 11:29 Last Admin: 09/14/23 11:10 Dose: 720 mg Ondansetron HCl (Ondansetron 4 Mg/2 Ml Vial) 4 mg IV-PUSH Q6H PRN PRN Reason: Nausea And Vomiting Stop: 09/07/24 15:48 Last Admin: 09/11/23 14:02 Dose: 4 mg Oxycodone/Acetaminophen (Oxycodone/Acetaminophen 5-325 Mg Tablet) 1 tab PO [id number] PRN Reason: pain Last Admin: 09/13/23 17:41 Dose: 1 tab Pantoprazole Sodium (Pantoprazole 40 Mg Tablet.) 40 mg PO DAILY [facility] Stop: 09/11/24 08:59 Last Admin: 09/14/23 09:37 Dose: 40 mg Potassium Chloride (Potassium Chloride Er 20 Meq Tab.Er.Prt) 40 meq PO DAILY PRN PRN Reason: Hypokalemia Stop: 09/07/24 15:48 Last Admin: 09/14/23 09:37 Dose: 40 meq Sodium Chloride (Sodium Chloride 0.9 % 10 Ml Syringe) 0 ml IV-PUSH PRN PRN PRN Reason: Flush Stop: 09/07/24 09:51 Last Admin: 09/13/23 12:07 Dose: 40 ml Sodium Chloride (Sodium Chloride 0.9 % 10 Ml Vial.Pf) 0 ml IV PRN PRN PRN Reason: ATIVAN DILUTION Stop: 09/07/24 19:07 Sodium Chloride (Sodium Chloride 0.9 % 10 Ml Syringe) 0 ml IV-PUSH PRN PRN PRN Reason: Flush Stop: 09/08/24 09:07 Last Admin: 09/11/23 14:04 Dose: 40 ml Thiamine HCl (Thiamine 100 Mg Tablet) 100 mg PO BID [facility] Stop: 09/07/24 20:59 Last Admin: 09/14/23 09:37 Dose: 100 mg Vancomycin HCl (Vancomycin Liquid 15,000 Mg/300 Ml Soln.Recon) 125 mg PO QID [facility] Stop: 09/20/23 22:01 Last Admin: 09/13/23 21:00 Dose: 125 mg Allergies fish oil Allergy (Unknown, Verified 09/08/23 09:53) Unknown Reaction Penicillins Allergy (Unknown, Verified 09/08/23 09:53) Unknown Reaction Sulfa (Sulfonamide Antibiotics) Allergy (Unknown, Verified 09/08/23 09:53) Unknown Reaction sulfamethoxazole [From Bactrim] Allergy (Verified 09/08/23 09:53) Unknown Reaction trimethoprim [From Bactrim] Allergy (Verified 09/08/23 09:53) Unknown Reaction Results - Nephrology Labs 09/14/23 04:52 09/14/23 07:02 Labs: 09/14/23 04:52 BUN 14 Creatinine 3.73 H D Radiology Impressions Impressions - last 24 hours: Impressions PVR 09/12/23 12:00 IMPRESSION: Normal study. Impression dictated by: Lobito Joe MD09/13/2023 11:52 AM Dictation Location: [place] [address] Any impression(s) listed above is documentation that was entered by the reading physician into a diagnostic report(s) for Winnie Cai. I have reviewed the report(s) and am incorporating any findings in the treatment plan of this patient where applicable. 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 Patient had REED at the time of liver transplant as well and she did require short period of hemodialysis. Patient is back on dialysis since 05/04/2021. She was switched to IHD from PD on 09/07 after she fell and fractured her right arm. Patient has not been compliant with PD at home as well. (2) History of peritoneal dialysis: Assessment/Problem Details: * PD catheter was removed on 09/07 as it was broken and not usable. Patient also not able to do PD related to right arm fracture. * PD catheter tip culture still negative x 1 day (3) Leucocytosis: Assessment/Problem Details: Patient has leukocytosis 30,000 with broken PD catheter and evidence of PD catheter exit site erythema. Possibility of peritonitis cannot be excluded however patient does not have PD fluid in the abdomen to drain for testing. PD catheter was broken and cannot be used for manual exchange * CT scan of the abdomen suggestive of colitis. Blood and catheter tip cultures showed no growth. Antibiotics were stopped. * Stool for C. difficile is positive n 09/09, patient was started on oral vancomycin. (4) Anemia of renal disease: Assessment/Problem Details: Patient has significant drop of hemoglobin over the last week after fall and right humerus fracture. She has large hematoma over the right arm and chest. INR also mildly elevated. Last hemoglobin was 10 g/dL on August 19 * Hemoglobin did drop down to 6.2 g/dL on 09/07 with no evidence of active bleeding. Patient had 1 unit of packed RBCs * Iron stores and B12 are adequate however folic acid is low 5.7. Patient was started on oral folic acid 1 mg daily on 09/07. * Aranesp 40 mcg weekly with dialysis was started (5) Rhabdomyolysis: Assessment/Problem Details: Patient has elevated CPK with mild rhabdomyolysis s/p fall. CPK is trending down (6) History of shoulder fracture: Assessment/Problem Details: Patient has right humerus fracture s/p fall after she tripped at home. (7) Liver transplant status: Assessment/Problem Details: Patient status post liver transplant at [facility] on October 2014. She has mild elevated AST however ALT and bilirubin are normal. There is question that the patient still drinking vodka however is not confirmed. INR is elevated. Plan * Patient had hemodialysis yesterday. She is euvolemic. She still has low potassium 2.9 mmol/L in the setting of C. difficile colitis and diarrhea despite 4K bath with dialysis. She has poor oral intake as well. She is on potassium chloride 40 mEq as needed. She is on magnesium supplement as well * Hemoglobin continues to drop down to 7.1 g/dL today despite 1 unit of packed RBCs transfusion on 09/08. Continue Aranesp 60 mcg and Ferrlecit 62.5 mg weekly with dialysis. She has adequate iron stores. She has normal INR. * Patient on oral vancomycin for C. difficile colitis. Antibiotics were stopped. WBCs count improved however still elevated * Patient still has temporary femoral hemodialysis catheter. Tunneled hemodialysis catheter will be arranged before discharge after improvement of mental status. Vascular surgery was consulted * Continue current liver transplant medications including mycophenolate 750 mg p.o. daily and cyclosporine 75 mg p.o. daily. Patient has been noncompliant before. She still drinks alcohol. GI following * Monitor daily intake and output, renal panel and CBC to adjust medications, dialysis prescription and blood transfusion for hemoglobin below 7 g/dL Documented By: Tima Lara MD 09/14/231121 Signed By: <Electronically signed by MD Tima Lara> 09/14/23 [address] [facility] Work Phone: 1([phone]) 421-124804-21-2024 Progress note Author Will Romero [facility] September 14, 2023 11:18am Note Date/Time September 14, 2023 9:[address] [facility] [address] [place] [address] Neurology Progress Note Signed Patient: Winnie Cai MR#: [id number] : 1985 Acct:[id number] Age/Sex: 38 / F Adm Date: 4 Loc: 4 Room: [address] [place] [address] Type: ADM IN Attending Dr: Tani Meehan MD Copies to: ~ Date of Service: 09/14/2023 Subjective Subjective Narrative: Saw the patient today in follow-up. She remains confused and again per staff asnoted by previous neurologist she has periods of relative clarity and lucid intervals. No acute events overnight. No seizure-like activity noted. The patient actually did open her eyes and have more of a conversation with me today. She stated she was hopeful to go home. She did not relate any definitive new issues. Review of Systems Review of Systems Unobtainable due to mental status and Unobtainable due to mental condition Exam Physical Exam Vital Signs: Temp Pulse Resp BP Pulse Ox O2 Del Method O2 Flow Rate 97.6 F 78 16 117/79 98 Room Air 6 09/14/23 08:00 09/14/23 08:00 09/14/23 08:00 09/14/23 08:00 09/14/23 08:00 09/14/23 08:00 09/08/23 19:23 Narrative: EXAMINATION: Laying in bed. Extensive bruising to anterior chest wall and bilateral shoulders and arms. Limbs seem well-perfused. No significant edema. Normal work of breathing. Affect flat. Somnolent. With some tactile or verbal stimulation she awakens. Attention severely impaired. Speech is hypophonic, sounds fluent and nondysarthric. Pupils appear equal. Ocular motility is full. No nystagmus. Facial sensation is normal. Hearing is normal. Facial strengthis normal. Tongue is midline. She can lift her left arm up in the air. She can hold both legs in the air. Muscle bulk is normal. Muscle tone seems normal. Mild postural tremulousness. No significant asterixis. Light touch isintact. No visualized ataxic limb movements. Objective Vital Signs Vital Signs: Vital Signs - 24 hr 09/13/23 09:47 09/13/23 10:30 09/13/23 11:00 Temperature Pulse Rate Pulse Rate [Monitor] 93 100 95 Respiratory Rate Blood Pressure Blood Pressure [Left Arm] 141/103 H 114/87 106/78 02 Sat by Pulse Oximetry Oxygen Delivery Method 09/13/23 11:30 09/13/23 12:00 09/13/23 12:30 Temperature Pulse Rate Pulse Rate [Monitor] 105 H 100 106 H Respiratory Rate Blood Pressure Blood Pressure [Left Arm] 103/75 94/57 L 104/76 02 Sat by Pulse Oximetry Oxygen Delivery Method 09/13/23 13:00 09/13/23 13:34 09/13/23 13:44 Temperature 98.1 F Pulse Rate Pulse Rate [Monitor] 88 94 99 Respiratory Rate 18 Blood Pressure Blood Pressure [Left Arm] 105/75 93/81 L 106/78 02 Sat by Pulse Oximetry 98 Oxygen Delivery Method Room Air 09/13/23 14:00 09/13/23 15:31 09/13/23 16:00 Temperature 99.9 F H 97.5 F L Pulse Rate 95 96 Pulse Rate [Monitor] Respiratory Rate 18 18 Blood Pressure 117/77 115/73 Blood Pressure [Left Arm] 02 Sat by Pulse Oximetry 97 99 Oxygen Delivery Method Room Air Room Air Room Air 09/13/23 20:00 09/13/23 20:00 09/14/23 00:00 Temperature 98.1 F Pulse Rate 89 82 Pulse Rate [Monitor] Respiratory Rate 16 16 Blood Pressure 117/72 117/73 Blood Pressure [Left Arm] 02 Sat by Pulse Oximetry 99 96 Oxygen Delivery Method Room Air Room Air Room Air 09/14/23 04:00 09/14/23 08:00 Temperature 97.6 F Pulse Rate 76 78 Pulse Rate [Monitor] Respiratory Rate 18 16 Blood Pressure 125/86 117/79 Blood Pressure [Left Arm] 02 Sat by Pulse Oximetry 99 98 Oxygen Delivery Method Room Air Room Air Labs 09/14/23 04:52 09/14/23 07:02 Lab Results: 09/13/23 11:24: Ammonia 10 L Therapy Recommendations Therapy Recommendations: OT Recommendations OT Recommended Discharge [facility] Location OT Recommended Services at Physical Therapy,Occupational Therapy Discharge PT Recommendations PT Recommended Discharge [facility] Location PT Recommended Services at Physical Therapy,Occupational Therapy,Speech Discharge Therapy PT Discharge Comment dependent on pt progress Assessment/Plan (1) Metabolic encephalopathy: Assessment/Problem Details: DATA REVIEW: -Head CT September 08, 2023 without any acute intracranial pathology - MRI brain pending ASSESSMENT: Metabolic encephalopathy related to some mild to moderate metabolic derangement,namely hyperammonemia and azotemia, both of which have normalized. She also hadsevere hyponatremia presenting with a sodium of 117 and now is 130. She likely has some infection related encephalopathy due to her C. difficile colitis. She remains significantly encephalopathic but temporarily alerts and does not seem to have any focal neurological deficits. CT brain was unremarkable on admission. Alcohol withdrawal is also contributing. I also feel that the substantial fracture and need for pain medication has likely contributed to her altered mental status. Orthopedic surgery has evaluated the patient and decidedthat no surgical intervention will be undertaken while the patient is in the hospital. PLAN: 1. Continue the thiamine and folic acid supplementation 2. follow up MRI brain 3. further rec pending clinical picture. will follow Plan: (2) Closed fracture of right proximal humerus: (3) ESRD (end stage renal disease) on dialysis: (4) Alcohol abuse: Plan Documented By: Will Romero DO [id number] Signed By: <Electronically signed by Will Romero DO> 09/14/23 [address] [facility] Work Phone: 1(191) 199-864804-21-2024 Progress note Author Hortensia Cordero [facility] September 14, 2023 12:53am Note Date/Time September 13, 2023 5:[address] 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 Diff infection remain afebrile, hemodynamically stable, leukocytosis 16K CT abd shows diffuse wall thickening within the colon with accompanying pericolonic fat stranding. This is consistent with colitis which may be infectious or inflammatory. A small amount of peritoneal free fluid is noted with a peritoneal dialysis catheter in the left lower quadrant. C.Diff testing came back positive Vancomycin PO Sepsis related to C Diff infection The patient was found with severe leukocytosis with WBC up to 40K and tachycardia. initial lactic acid level was not elevated up. There is no sign of clear infection. Leukocytosis could be due to dehydration. Given her PD cathetermalfunction PD cath infection can?t be ruled out The patient received IVF in the ED. Then she was reevaluated after IVF within 6 hours: the Capillary refill is more than 3 seconds, Pulses present bilaterally and Skin normal for ethnicity. repeat lactate level was done she was started empirically on broad spectrum IV antibiotics with Invanz (PNC allergy) and Vancomycin IV . however C. diff came back positive which explain her leukocytosis. given no sign of other infection and negative blood Cx. broad spectrum IV was discontinued Acute on Chronic Anemia - Ruled out Chronic Anemia of CKD Hg of the presentation 7.3. PLT > 50. INR 1.4 (vitamin K oral was given which improves INR to 1.1). Ferritin 874 , Transferrin is low, Reticulocyte count low , B12 up to 3900 . No recent Hg to compare. no overt bleeding. she [facility]. GI evaluated the patient and advised that her anemia is due to ESRD with no endoscopic evaluation was advised at thistime due to lack of evidence of signs of overt bleeding. Hg dropped to 6.2 with hydration she was transfused one unit of blood with improvement of her Hg. her Hg has been stable after that which more consistent of Chronic Anemia rather to be acute anemia fo blood loss Folate Deficiency Folate low 5.7 she was started on Supplement ESRD PD cath dysfunction Severe hyponatremia - resolved Nephrology was consulted for the management of dialysis and ESRD complication, recommendation appreciated. PD cath removed by General surgery and temporary HD catheter placed by pulmonary. Vascular surgery consulted for tunneled hemodialysis catheter. plan possibley for next week c/w HD Liver transplant she has liver transplant at [facility] back in 2014 due to Alcoholicliver failure. family said she may be she has not been taking her antirejection mediation. there is a high possibility of noncompliance. home antirejection medication was restart encephalopathy the patient remain confused no change in her mental status ammonia is borderline elevated and her Etoh use history is possible but not clear. neurology recommendation appreciated Elevated Troponin Mild not significant . she denied any chest pain . no EKG changes Recent right traumatic proximal humerus fracture there is edema in her right arm and with some ecchymosis . there is no warmness, tenderness (lower form the shoulder) or erythema. Swelling and bruising is complication of the fracture XR shoulder at [facility] 09/01/2023 reported: Acute comminuted fracture of the surgical neck of the right proximal humerus demonstrating approximately 1cm anteromedial displacement and slight impaction.Suspect nondisplaced fracture extension into the greater tuberosity. Approximately 1 cm linear density adjacent to the greater tuberosity of the humeral head suspicious for acute fracture fragment. Differential includes calcium hydroxyapatite deposition and calcific tendinosis of the right rotator Cuff. The patient was treated conservatively at [facility] ER and was sent home. XR shoulder09/11 reported comminuted impacted fracture involving the right humeral head/neck with what appears to be periosteal reaction noted suggestive of healing response. Orthopedic consult for possible late complication of humerus fracture. who Discussed surgical versus conservative options with family. surgical intervention was not recommnded she is to follow as outpatient . Nonweightbearing right upper extremity and Sling for comfort were recommended due to weak pulse in her right arm PVR UE was done which was Normal. could be due her RUE swelling form c/w immobilization Pain control Probable EtOH Abuse Disorder/withdrawal there is conflicting information about her drinking habit. the family doesn't know if she drink at home. the patient has vague answer about the last time she had a drink . she reported to RN on admission that she still drinks. Blood alcohol concentration is not detected on admission PEth (send out) pending [facility] protocol Multivitamin/folic acid/Thiamine Symptom control and supportive care Sore throat/Oral Candidiasis There is Oral white Mucosal Lesions on her tongue which now is more yellow local antifungal treatment hypothyroidism TSH wnl; Synthroid was continued Poor appetite i encouraged oral intake diet supplement dietitian input noted Rhabdomyolysis - resolved CK up to 4600 on admission She was given IVF. CK improved to normal hepatic encephalopathy - Ruled out ct brain shows no acute intracranial process Ammonia level was mildly elevated . lactulose was given with normalization of her ammonia. her mental status did not improve. GI did not think she has hepaticencephalopathy. her encephalopathy is likely due to other causes. lactulose was discontinued infected PD catheter - Ruled out there is no abdominal pain - Catheter Tip Cx negative INTERVAL HPI: As Above, Pt resting in bed. more lethargic today (she was given 2 mg Ativan earlier) Chronic diseases: Unless mentioned Above, Essential home medications have been continued. DVT Px: SCD Disposition: To be determined Plan of care Discussed with: the medical team L Exam Physical Exam Vital Signs: Temp Pulse Resp BP Pulse Ox O2 Del Method O2 Flow Rate 36.4 C L 96 18 115/73 99 Room Air 6 09/13/23 16:00 09/13/23 16:00 09/13/23 16:00 09/13/23 16:00 09/13/23 16:09/13/23 16:09/08/23 19:23 Narrative: GEN: Partially Cooperative, Not in acute distress. NECK:Supple, ? JVD LUNGS: CTA. CV: S1S2 nl, ? M/R/G ABD: Soft, ND, NT, + BS, ? HSM EXT: No edema in LE bilaterally,, no calf muscle tenderness. swelling in the right arm with no warmness or tenderness . NEURO: no overt FND PSYCH: flat affect, still lethargic due to ativan Objective Lab Results 09/13/23 11:24 09/13/23 04:59 Microbiology Results Microbiology 09/08/23 10:33 Blood - Left Antecubital Blood Culture - Final NO GROWTH 5 DAYS 09/08/23 10:07 Blood - Left Arm Blood Culture - Final Meds Allergies and Active Meds Allergies fish oil Allergy (Unknown, Verified 09/08/23 09:53) Unknown Reaction Penicillins Allergy (Unknown, Verified 09/08/23 09:53) Unknown Reaction Sulfa (Sulfonamide Antibiotics) Allergy (Unknown, Verified 09/08/23 09:53) Unknown Reaction sulfamethoxazole [From Bactrim] Allergy (Verified 09/08/23 09:53) Unknown Reaction trimethoprim [From Bactrim] Allergy (Verified 09/08/23 09:53) Unknown Reaction Active Meds: Active Medications Generic Name Dose Route Start Last Admin Trade Name Freq PRN Reason Stop Dose Admin Calcium Acetate 667 mg 09/09/23 12:00 09/13/23 17:01 Calcium Acetate 667 Mg Capsule PO 09/08/24 11:59 Not Given TID.WITH.MEALS [facility] Clotrimazole 10 mg 09/09/23 18:00 09/13/23 17:02 Clotrimazole Alba 10 Mg MUCOUS MEM 09/08/24 17:59 Not Given 5XDAILY [facility] Cyclosporine 75 mg 09/09/23 11:30 09/13/23 14:10 Cyclosporine Modified 25 Mg Capsule PO 09/08/24 11:29 75 mg DAILY SERE[facility] Administration Darbepoetin Mariano 60 mcg 09/11/23 09:30 09/11/23 14:03 Darbepoetin Mariano In Polysorbat 60 Mcg/Ml Vial IV-PUSH 09/10/24 09:29 60 mcg Th@0900 [facility] Administration Protocol Dextrose 0 gm 09/08/23 17:36 09/08/23 18:00 Dextrose 50% In Water 25 Gm/50 Ml Syringe IV-PUSH 09/07/24 17:35 25 gm PRN PRN Administration Hypoglycemia Escitalopram Oxalate 15 mg 09/09/23 11:30 09/13/23 14:10 Escitalopram 5 Mg Tablet PO 09/08/24 11:29 15 mg DAILY S[facility] Administration Ferric Sodium Gluconate Complex 62.5 mg 09/11/23 09:30 09/11/23 14:03 Sodium Ferric Gluconat/Sucrose 62.5 Mg/5 Ml Vial IV-PUSH 09/10/24 09:29 62.5 mg Th@0900 [facility] Administration Folic Acid 5 mg 09/12/23 09:00 09/13/23 14:09 Folic Acid 1 Mg Tablet PO 09/11/24 08:59 5 mg DAILY [facility] Administration Heparin Sodium (Porcine) 2,600 unit 09/11/23 14:06 09/13/23 12:07 Heparin 10,000 Unit/10 Ml Vial IV 09/10/24 14:05 2,600 unit PRN PRN Administration Dialysis Sodium Chloride 1,000 mls @ 0 mls/hr 09/09/23 09:08 09/13/23 12:08 0.9% Sodium Chloride 1,000 Ml MISCELLANE 09/08/24 09:07 Infused .Q0M PRN Infusion Dialysis As Directed Lactulose 20 gm 09/09/23 09:00 09/13/23 14:19 Lactulose 20 Gm/30 Ml Udc PO 09/08/24 08:59 Not Given TID [facility] Levothyroxine Sodium 75 mcg 09/09/23 11:00 09/13/23 07:24 Levothyroxine 75 Mcg Tablet PO 09/08/24 10:59 Not Given DAILY@0630 [facility] Lorazepam 0 mg 09/08/23 19:05 09/13/23 00:47 Lorazepam 1 Mg Tablet PO 03/06/24 19:04 2 mg PROTOCOL PRN Administration Alcohol Withdrawal Protocol Lorazepam 0 mg 09/08/23 19:05 09/11/23 14:18 Lorazepam 2 Mg/Ml Vial IV-PUSH 03/06/24 19:04 2 mg PROTOCOL PRN Administration Alcohol Withdrawal Protocol Magnesium Oxide 200 mg 09/10/23 09:00 09/13/23 14:09 Magnesium Oxide 400 Mg Tablet PO 09/09/24 08:59 200 mg DAILY [facility] Administration Metoprolol Succinate 50 mg 09/08/23 22:00 09/12/23 21:37 Metoprolol Succinate 50 Mg Tab.Er.24h PO 09/07/24 21:59 50 mg QHS [facility] Administration Morphine Sulfate 1 mg 09/12/23 19:31 09/12/23 20:56 Morphine Sulfate 2 Mg/Ml Vial IV-PUSH 1 mg Q4H PRN Administration Pain Scale 7 - 10 Multivitamins 1 tab 09/09/23 09:00 09/13/23 14:09 Multivitamin 1 Tab Tablet PO 09/08/24 08:59 1 tab DAILY [facility] Administration Mycophenolate Sodium 720 mg 09/09/23 11:30 09/13/23 14:09 Mycophenolate Sodium 180 Mg Tablet. *Nf* PO 09/08/24 11:29 720 mg DAILY [facility] Administration Ondansetron HCl 4 mg 09/08/23 15:49 09/11/23 14:02 Ondansetron 4 Mg/2 Ml Vial IV-PUSH 09/07/24 15:48 4 mg Q6H PRN Administration Nausea And Vomiting Oxycodone/Acetaminophen 1 tab 09/08/23 15:44 09/12/23 13:54 Oxycodone/Acetaminophen 5-325 Mg Tablet PO 1 tab Q4HR PRN Administration pain Pantoprazole Sodium 40 mg 09/12/23 09:00 09/13/23 14:10 Pantoprazole 40 Mg Tablet. PO 09/11/24 08:59 40 mg DAILY [facility] Administration Potassium Chloride 40 meq 09/08/23 15:49 Potassium Chloride Er 20 Meq Tab.Er.Prt PO 09/07/24 15:48 DAILY PRN Hypokalemia Sodium Chloride 0 ml 09/08/23 09:52 09/13/23 12:07 Sodium Chloride 0.9 % 10 Ml Syringe IV-PUSH 09/07/24 09:51 40 ml PRN PRN Administration Flush Sodium Chloride 0 ml 09/08/23 19:08 Sodium Chloride 0.9 % 10 Ml Vial.Pf IV 09/07/24 19:07 PRN PRN ATIVAN DILUTION Sodium Chloride 0 ml 09/09/23 09:08 09/11/23 14:04 Sodium Chloride 0.9 % 10 Ml Syringe IV-PUSH 09/08/24 09:07 40 ml PRN PRN Administration Flush Thiamine HCl 100 mg 09/08/23 21:00 09/13/23 14:10 Thiamine 100 Mg Tablet PO 09/07/24 20:59 100 mg BID [facility] Administration Vancomycin HCl 125 mg 09/11/23 22:30 09/13/23 14:20 Vancomycin Liquid 15,000 Mg/300 Ml Soln.Recon PO 09/20/23 22:01 Not Given QID [facility] A&P - Hospitalist Assessment/Plan (1) Peritoneal dialysis catheter mechanical complication: (2) Liver transplant status: (3) Anemia of renal disease: (4) Rhabdomyolysis: (5) Dehydration: Plan Documented By: Hortensia Cordero MD 09/13/23 1739 Signed By: <Electronically signed by Hortensia Cordero MD> 09/14/23 00[address] [facility] Work Phone: [phone]) 803-246304-20-2024 Progress note Author Tima Lara [facility] September 13, 2023 12:15pm Note Date/Time September 13, 2023 12: 03pm [facility] [address] [place] [address] Nephrology Progress Note Signed Patient: Winnie Cai MR#: [id number] : 1985 Acct:[id number] Age/Sex: 38 / F Adm Date: 4 Loc: Room: [address] [place] [address] Type: ADM IN Attending Dr: Tani Meehan MD Copies to: ~ Date of Service: 09/13/2023 Subjective Subjective Narrative: Ms. 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 PD was started at [place] however he moved to [place] closer to her home. She has a history of liver transplant due to alcoholic liver cirrhosis at [facility] 2014. She did require hemodialysis in the perioperative period and later on was transitioned to PD. Patient has been noncompliant with peritoneal dialysis and missing multiple treatments at home per her records. Patient was brought to the ER on 09/07 as she has been significantly weak and dehydrated. Patient sustained a fall after she tripped last week and went to [facility] ER but she was found to have fracture of the right head of humerus. Right hand currently in sling dressing she is supposed to see orthopedics as outpatient. Patient was not able to do peritoneal dialysis at home since she has limited mobility of the right arm. Patient reported that she has not been eating or drinking over the last few days. Evaluation in the ER showed large hematoma around the shoulder and the chest. She was tachycardic 111 however blood pressure 115/73. No fever or chills. WBCs count was found to be [id number]. Patient was started empirically on vancomycin and Zosyn after 2 sets ofblood culture was obtained. Hemoglobin was low 7.3 compared to 10 g/dL on . She has mildly elevated INR 1.4 despite she is not on any blood thinners medication. There is a report by nursing staff that patient still drinking vodka however it does not confirm. Ethyl alcohol level on admission was less than 10 mg/dL. Interval history: Patient is being seen and examined on hemodialysis per She is awake however she still confused with possible alcohol withdrawal encephalopathy related to C. difficile colitis. Blood pressure is borderline low 103/75. WBCs count continues to improve 16.9. Patient still has temporary femoral hemodialysis catheter waiting for improvement of mental status and general condition before proceeding with tunneled hemodialysis catheter possibly on Friday. Vascular surgery is following. Exam Physical Exam Vital Signs: Temp Pulse Resp BP Pulse Ox O2 Del Method O2 Flow Rate 36.9 C 105 H 16 103/75 95 Room Air 6 09/13/23 09:35 09/13/23 11:30 09/13/23 09:35 09/13/23 11:30 09/13/23 09:35 09/13/23 09:35 09/08/23 19:23 Narrative: Constitutional: Still confused and looks older than her stated age. HEENT: She has significant pallor. No jaundice or cyanosis. Mucous membranes are dry. Cardiovascular: RRR, tachycardic, 2/6 SM, normal S1-S2, no gallop or rub, No JVD Respiratory: Good bilateral air entry no wheezing or crackles Gastrointestinal: Soft, non tender, positive bowel sounds. PD catheter was removed as it was broken and the patient was not able to do PD at home because of right humerus fracture. Extremities: No edema Skin:Hematoma over the right arm extending to the chest Neurology: Awake, confused. She is able to respond to questions however she hasdifficulty finding words. Psych: Normal mood and affect Objective Intake and Output I&O: Intake & Output 09/10/23 09/11/23 09/12/23 09/13/23 23:59 23:59 23:59 23:59 Intake Total 470 / 470 720 / 720 950 / 950 450 / 450 Output Total 0 / 0 2502 / 2502 Balance 470 / 470 -1782 / -1782 950 / 950 450 / 450 Weight 65.6 kg 65.9 kg 66.7 kg 66.9 kg Meds and Allergies Meds: Active Medications Calcium Acetate (Calcium Acetate 667 Mg Capsule) 667 mg PO TID.WITH.MEALS [facility] Stop: 09/08/24 11:59 Last Admin: 09/12/23 17:37 Dose: Not Given Clotrimazole (Clotrimazole Alba 10 Mg) 10 mg MUCOUS MEM 5XDAILY [facility] Stop: 09/08/24 17:59 Last Admin: 09/13/23 06:50 Dose: Not Given Cyclosporine (Cyclosporine Modified 25 Mg Capsule) 75 mg PO DAILY [facility] Stop: 09/08/24 11:29 Last Admin: 09/12/23 08:49 Dose: Not Given Darbepoetin Mariano (Darbepoetin Mariano In Polysorbat 60 Mcg/Ml Vial) 60 mcg IV-PUSHTh@0900 [facility]; Protocol Stop: 09/10/24 09:29 Last Admin: 09/11/23 14:03 Dose: 60 mcg Dextrose (Dextrose 50% In Water 25 Gm/50 Ml Syringe) 0 gm IV-PUSH PRN PRN PRN Reason: Hypoglycemia Stop: 09/07/24 17:35 Last Admin: 09/08/23 18:00 Dose: 25 gm Escitalopram Oxalate (Escitalopram 5 Mg Tablet) 15 mg PO DAILY [facility] Stop: 09/08/24 11:29 Last Admin: 09/12/23 08:49 Dose: Not Given Ferric Sodium Gluconate Complex (Sodium Ferric Gluconat/Sucrose 62.5 Mg/5 Ml Vial) 62.5 mg IV-PUSH Th@0900 [facility] Stop: 09/10/24 09:29 Last Admin: 09/11/23 14:03 Dose: 62.5 mg Folic Acid (Folic Acid 1 Mg Tablet) 5 mg PO DAILY [facility] Stop: 09/11/24 08:59 Last Admin: 09/12/23 08:48 Dose: Not Given Heparin Sodium (Porcine) (Heparin 10,000 Unit/10 Ml Vial) 2,600 unit IV PRN PRN PRN Reason: Dialysis Stop: 09/10/24 14:05 Last Admin: 09/11/23 14:17 Dose: 2,600 unit Sodium Chloride (0.9% Sodium Chloride 1,000 Ml) 1,000 mls @ 0 mls/hr MISCELLANE.Q0M PRN PRN Reason: Dialysis Stop: 09/08/24 09:07 Last Infusion: 09/11/23 14:05 Dose: Infused Lactulose (Lactulose 20 Gm/30 Ml Udc) 20 gm PO TID [facility] Stop: 09/08/24 08:59 Last Admin: 09/12/23 22:13 Dose: Not Given Levothyroxine Sodium (Levothyroxine 75 Mcg Tablet) 75 mcg PO DAILY@0630 [facility] Stop: 09/08/24 10:59 Last Admin: 09/13/23 07:24 Dose: Not Given Lorazepam (Lorazepam 1 Mg Tablet) 0 mg PO PROTOCOL PRN; Protocol PRN Reason: Alcohol Withdrawal Stop: 03/06/24 19:04 Last Admin: 09/13/23 00:47 Dose: 2 mg Lorazepam (Lorazepam 2 Mg/Ml Vial) 0 mg IV-PUSH PROTOCOL PRN; Protocol PRN Reason: Alcohol Withdrawal Stop: 03/06/24 19:04 Last Admin: 09/11/23 14:18 Dose: 2 mg Magnesium Oxide (Magnesium Oxide 400 Mg Tablet) 200 mg PO DAILY [facility] Stop: 09/09/24 08:59 Last Admin: 09/12/23 08:49 Dose: Not Given Metoprolol Succinate (Metoprolol Succinate 50 Mg Tab.Er.24h) 50 mg PO QHS [facility] Stop: 09/07/24 21:59 Last Admin: 09/12/23 21:37 Dose: 50 mg Morphine Sulfate (Morphine Sulfate 2 Mg/Ml Vial) 1 mg IV-PUSH Q4H PRN PRN Reason: Pain Scale 7 - 10 Last Admin: 09/12/23 20:56 Dose: 1 mg Multivitamins (Multivitamin 1 Tab Tablet) 1 tab PO DAILY [facility] Stop: 09/08/24 08:59 Last Admin: 09/12/23 08:49 Dose: Not Given Mycophenolate Sodium (Mycophenolate Sodium 180 Mg Tablet. *Nf*) 720 mg PO DAILY [facility] Stop: 09/08/24 11:29 Last Admin: 09/12/23 08:49 Dose: Not Given Ondansetron HCl (Ondansetron 4 Mg/2 Ml Vial) 4 mg IV-PUSH Q6H PRN PRN Reason: Nausea And Vomiting Stop: 09/07/24 15:48 Last Admin: 09/11/23 14:02 Dose: 4 mg Oxycodone/Acetaminophen (Oxycodone/Acetaminophen 5-325 Mg Tablet) 1 tab PO [id number] PRN Reason: pain Last Admin: 09/12/23 13:54 Dose: 1 tab Pantoprazole Sodium (Pantoprazole 40 Mg Tablet.) 40 mg PO DAILY [facility] Stop: 09/11/24 08:59 Last Admin: 09/12/23 08:49 Dose: Not Given Potassium Chloride (Potassium Chloride Er 20 Meq Tab.Er.Prt) 40 meq PO DAILY PRN PRN Reason: Hypokalemia Stop: 09/07/24 15:48 Sodium Chloride (Sodium Chloride 0.9 % 10 Ml Syringe) 0 ml IV-PUSH PRN PRN PRN Reason: Flush Stop: 09/07/24 09:51 Last Admin: 09/12/23 20:57 Dose: 10 ml Sodium Chloride (Sodium Chloride 0.9 % 10 Ml Vial.Pf) 0 ml IV PRN PRN PRN Reason: ATIVAN DILUTION Stop: 09/07/24 19:07 Sodium Chloride (Sodium Chloride 0.9 % 10 Ml Syringe) 0 ml IV-PUSH PRN PRN PRN Reason: Flush Stop: 09/08/24 09:07 Last Admin: 09/11/23 14:04 Dose: 40 ml Thiamine HCl (Thiamine 100 Mg Tablet) 100 mg PO BID [facility] Stop: 09/07/24 20:59 Last Admin: 09/12/23 21:37 Dose: 100 mg Vancomycin HCl (Vancomycin Liquid 15,000 Mg/300 Ml Soln.Recon) 125 mg PO QID [facility] Stop: 09/20/23 22:01 Last Admin: 09/12/23 21:46 Dose: 125 mg Allergies fish oil Allergy (Unknown, Verified 09/08/23 09:53) Unknown Reaction Penicillins Allergy (Unknown, Verified 09/08/23 09:53) Unknown Reaction Sulfa (Sulfonamide Antibiotics) Allergy (Unknown, Verified 09/08/23 09:53) Unknown Reaction sulfamethoxazole [From Bactrim] Allergy (Verified 09/08/23 09:53) Unknown Reaction trimethoprim [From Bactrim] Allergy (Verified 09/08/23 09:53) Unknown Reaction Results - Nephrology Labs 09/13/23 11:24 09/13/23 04:59 Labs: 09/13/23 04:59 BUN 25 Creatinine 5.02 H D Phosphorus 3.1 Albumin 2.4 L Radiology Impressions Impressions - last 24 hours: Impressions Shoulder X-Ray 09/12/23 11:36 IMPRESSION: COMMINUTED IMPACTED FRACTURE INVOLVING THE RIGHT HUMERAL HEAD/NECK WITH WHAT APPEARS TO BE PERIOSTEAL REACTION NOTED SUGGESTIVE OF HEALING RESPONSE. Impression dictated by: Emeka Gardner Jr., D.O.09/12/2023 2:29 PM Dictation Location: [address] 09/12/23 12:00 IMPRESSION: Normal study. Impression dictated by: Lobito Joe MD09/13/2023 11:52 AM Dictation Location: [place] [address] Any impression(s) listed above is documentation that was entered by the reading physician into a diagnostic report(s) for Winnie Cai. I have reviewed the report(s) and am incorporating any findings in the treatment plan of this patient where applicable. 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 Patient had REED at the time of liver transplant as well and she did require short period of hemodialysis. Patient is back on dialysis since 05/04/2021. She was switched to IHD from PD on 09/07 after she fell and fractured her right arm. Patient has not been compliant with PD at home as well. (2) History of peritoneal dialysis: Assessment/Problem Details: * PD catheter was removed on 09/07 as it was broken and not usable. Patient also not able to do PD related to right arm fracture. * PD catheter tip culture still negative x 1 day (3) Leucocytosis: Assessment/Problem Details: Patient has leukocytosis 30,000 with broken PD catheter and evidence of PD catheter exit site erythema. Possibility of peritonitis cannot be excluded however patient does not have PD fluid in the abdomen to drain for testing. PD catheter was broken and cannot be used for manual exchange * CT scan of the abdomen suggestive of colitis. Blood and catheter tip cultures showed no growth. Antibiotics were stopped. * Stool for C. difficile is positive n 09/09, patient was started on oral vancomycin. (4) Anemia of renal disease: Assessment/Problem Details: Patient has significant drop of hemoglobin over the last week after fall and right humerus fracture. She has large hematoma over the right arm and chest. INR also mildly elevated. Last hemoglobin was 10 g/dL on August 19 * Hemoglobin did drop down to 6.2 g/dL on 09/07 with no evidence of active bleeding. Patient had 1 unit of packed RBCs * Iron stores and B12 are adequate however folic acid is low 5.7. Patient was started on oral folic acid 1 mg daily on 09/07. * Aranesp 40 mcg weekly with dialysis was started (5) Rhabdomyolysis: Assessment/Problem Details: Patient has elevated CPK with mild rhabdomyolysis s/p fall. CPK is trending down (6) History of shoulder fracture: Assessment/Problem Details: Patient has right humerus fracture s/p fall after she tripped at home. (7) Liver transplant status: Assessment/Problem Details: Patient status post liver transplant at [facility] on October 2014. She has mild elevated AST however ALT and bilirubin are normal. There is question that the patient still drinking vodka however is not confirmed. INR is elevated. Plan * For dialysis today for 210 minutes, 4K bath as potassium still low. 2 L ultrafiltration as tolerated. * Continue Aranesp 40 mcg weekly with dialysis. Hemoglobin stable and slowly improving. * Patient on oral vancomycin for C. difficile colitis. Antibiotics were stopped. WBCs count improved however still elevated * Patient still has temporary femoral hemodialysis catheter. Tunneled hemodialysis catheter will be arranged before discharge after improvement of mental status. Vascular surgery was consulted * Continue current liver transplant medications including mycophenolate 750 mg p.o. daily and cyclosporine 75 mg p.o. daily. Patient has been noncompliant before. She still drinks alcohol. GI following * Monitor daily intake and output, renal panel and CBC to adjust medications, dialysis prescription and blood transfusion as indicated. Documented By: Tima Lara MD 09/13/23 8051 Signed By: <Electronically signed by MD Tima Lara> 09/13/23 1215 [facility] Work Phone: 1(821) 569-798704-20-2024 Progress note Author Will Romero [facility] September 13, 2023 10:02am Note Date/Time September 13, 2023 9:[address] [facility] [address] [place] [id number] Neurology Progress Note Signed Patient: Winnie Cai MR#: [id number] : 1985 Acct:[id number] Age/Sex: 38 / F Adm Date: 4 Loc: 4P Room: [address] [place] [address] Type: ADM IN Attending Dr: Tani Meehan MD Copies to: ~ Date of Service: 09/13/2023 Subjective Subjective Narrative: Saw the patient today in follow-up. She remains confused and again per staff asnoted by previous neurologist she has periods of relative clarity and lucid intervals. No acute events overnight. No seizure-like activity noted. She does not note any particular vision changes, neck stiffness or focal weakness. She is having some pain in her arm as noted yesterday Review of Systems Review of Systems Unobtainable due to mental status Exam Physical Exam Vital Signs: Temp Pulse Resp BP Pulse Ox O2 Del Method O2 Flow Rate 98.6 F 82 16 138/93 95 Room Air 6 09/13/23 08:00 09/13/23 08:00 09/13/23 08:00 09/13/23 08:00 09/13/23 08:00 09/13/23 08:00 09/08/23 19:23 Narrative: EXAMINATION: Laying in bed. Extensive bruising to anterior chest wall and bilateral shoulders and arms. Limbs seem well-perfused. No significant edema. Normal work of breathing. Affect flat. Somnolent. With some tactile or verbal stimulation she awakens. Attention severely impaired. Speech is hypophonic, sounds fluent and nondysarthric. Pupils appear equal. Ocular motility is full. No nystagmus. Facial sensation is normal. Hearing is normal. Facial strengthis normal. Tongue is midline. She can lift her left arm up in the air. She can hold both legs in the air. Muscle bulk is normal. Muscle tone seems normal. Mild postural tremulousness. No significant asterixis. Light touch isintact. No visualized ataxic limb movements. Objective Vital Signs Vital Signs: Vital Signs - 24 hr 09/12/23 12:00 09/12/23 16:00 09/12/23 20:00 Temperature 98 F Pulse Rate 102 H 105 H Respiratory Rate 16 16 Blood Pressure 110/70 02 Sat by Pulse Oximetry 98 Oxygen Delivery Method Room Air Room Air 09/12/23 20:54 09/13/23 00:00 09/13/23 04:00 Temperature 97.7 F 97.8 F Pulse Rate 112 H 98 82 Respiratory Rate 18 16 18 Blood Pressure 131/84 124/79 02 Sat by Pulse Oximetry 99 97 Oxygen Delivery Method Room Air Room Air 09/13/23 08:00 Temperature 98.6 F Pulse Rate 82 Respiratory Rate 16 Blood Pressure 138/93 02 Sat by Pulse Oximetry 95 Oxygen Delivery Method Room Air Labs 09/12/23 04:49 09/13/23 04:59 Therapy Recommendations Therapy Recommendations: OT Recommendations OT Recommended Discharge [facility] Location OT Recommended Services at Physical Therapy,Occupational Therapy Discharge PT Recommendations PT Recommended Discharge [facility] Location PT Recommended Services at Physical Therapy,Occupational Therapy,Speech Discharge Therapy PT Discharge Comment dependent on pt progress Assessment/Plan (1) Metabolic encephalopathy: Assessment/Problem Details: DATA REVIEW: -Head CT September 08, 2023 without any acute intracranial pathology - MRI brain pending ASSESSMENT: Metabolic encephalopathy related to some mild to moderate metabolic derangement,namely hyperammonemia and azotemia, both of which have normalized. She also hadsevere hyponatremia presenting with a sodium of 117 and now is 130. She likely has some infection related encephalopathy due to her C. difficile colitis. She remains significantly encephalopathic but temporarily alerts and does not seem to have any focal neurological deficits. CT brain was unremarkable on admission. I think the consensus is now that she has been drinking alcohol regularly at home so that withdrawal process might also be resulting in some encephalopathy. I also feel that the substantial fracture and need for pain medication has likely contributed to her altered mental status. Orthopedic surgery has evaluated the patient and decided that no surgical intervention willbe undertaken while the patient is in the hospital. PLAN: 1. Continue the thiamine and folic acid supplementation 2. follow up MRI brain Plan: (2) Closed fracture of right proximal humerus: (3) ESRD (end stage renal disease) on dialysis: (4) Alcohol abuse: Plan Documented By: Will Romero DO 4 0916 Signed By: <Electronically signed by Will Romero DO> 09/13/23 1002 [facility] Work Phone: 1(261) 880-168604-20-2024 Progress note Author Hortensia Cordero [facility] September 12, 2023 11:10pm Note Date/Time September 12, 2023 11: 50am [facility] [address] [place] [address] Hospitalist Progress Note Signed Patient: Winnie Cai MR#: [id number] : 1985 Acct:[id number] Age/Sex: 38 / F Adm Date: 4 Loc: Room: [address] [place] [address] Type: ADM IN Attending Dr: Tani Meehan MD Copies to: ~ Date of Service: 09/12/2023 Subjective Subjective Narrative: Assessment And Plan 38F with PMH of HTN, history of Alcoholic liver failure (s/p transplant at [facility] 2014), ESRD(due to cyclosporine toxicity, on PD since 2020), Anemia of CKD, recent fall with humerus Fx, tobacco abuse, Anxiety, hypothyroid who presented with generalized weakness and mouth dryness and admitted for the evaluation and treatment of missing dialysis and to rule out sepsis C. Diff infection remain afebrile, hemodynamically stable, leukocytosis resolving CT abd shows diffuse wall thickening within the colon with accompanying pericolonic fat stranding. This is consistent with colitis which may be infectious or inflammatory. A small amount of peritoneal free fluid is noted with a peritoneal dialysis catheter in the left lower quadrant. C.Diff testing came back positive Vancomycin PO Sepsis related C Diff infection The patient was found with severe leukocytosis with WBC up to 40K and tachycardia. initial lactic acid level was not elevated up. There is no sign of clear infection. Leukocytosis could be due to dehydration. Given her PD cathetermalfunction PD cath infection can?t be ruled out The patient received IVF in the ED. Then she was reevaluated after IVF within 6 hours: the Capillary refill is more than 3 seconds, Pulses present bilaterally and Skin normal for ethnicity. repeat lactate level was done she was started empirically on broad spectrum IV antibiotics with Invanz (PNC allergy) and Vancomycin IV . however C. diff came back postive which explain herleukocytosis. given no sign of other infedtion and negative blood Cx. broad spectrum IV was discontinued Blood Cx remain negative infected PD catheter - Ruled out there is no abdominal pain Catheter Tip Cx remain negative Rule out Acute on Chronic Anemia Chronic Anemia of CKD no overt bleeding Hg improved and stable Hg of the presentation 7.3. No recent Hg to compare. no overt bleeding. she follow up for anemia with [facility]. Hg dropped to 6.2 with hydration she was transfused one unit of blood with improvement of her Hg PLT > 50 INR 1.4 (vitamin K oral was given which improves INR to 1.1) B12 up to 3900 ferritin 874 , Transferrin is low, Reticulocyte count low Transfuse as needed GI recommendation appreciated PPI changed back to PO Folate Deficiency Folate low 5.7 on Supplement ESRD PD cath dysfunction Severe hyponatremia - resolved Nephrology was consulted for the management of dialysis and ESRD complication, recommendation appreciated. PD cath removed by General surgery and temporary HD catheter placed by pulmonary. Vascular surgery consulted for tunneled hemodialysis catheter. plan possibley for next week c/w HD Rhabdomyolysis - resolved CK up to 4600 on admission She was given IVF. CK improved to normal Possible hepatic encephalopathy ct brain shows no acute intracranial process lactulose Ammonia level became normal GI recommendation appreciated Liver transplant she has liver transplant at [facility] back in 2014 due to Alcoholicliver failure. family said she may be she has not been taking her antirejection mediation . there is high possibility of noncompliance restart home antirejection medication encephalopathy the patient remain confused , family said her mental status is not back to baseline ammonia is borderline elevated and her Etoh use history is possible but not clear. neurology recommendation appreciated Elevated Troponin Mild not significant . she denied any chest pain . no EKG changes Recent right traumatic proximal humerus fracture today it was noted that there is weak right radial pulse the arm still warm and there is swelling XR shoulder at [facility] 09/01/2023 reported: Acute comminuted fracture of the surgical neck of the right proximal humerus demonstrating approximately 1 cm anteromedial displacement and slight impaction.Suspect nondisplaced fracture extension into the greater tuberosity. Approximately 1 cm linear density adjacent to the greater tuberosity of the humeral head suspicious for acute fracture fragment. Differential includes calcium hydroxyapatite deposition and calcific tendinosis of the right rotator Cuff. The patient was treated conservatively at [facility] and was sent home. XR shoulder09/11 reported comminuted impacted fracture involving the right humeral head/neck with what appears to be periosteal reaction noted suggestive of healing response. Orthopedic consult for possible late complication of humerus fracture. recommendation appreciated PVR UE shows wrist/brachial index R1.24 /L1.31 c/w immobilization Pain control Probable EtOH Abuse Disorder/withdrawal there is conflicting information about her drinking habit. the family doesn't know if she drink at home. the patient has vague answer about the last time she had a drink . she reported to RN on admission that she still drinks. Blood alcohol concentration is not detected on admission PEth (send out) pending [facility] protocol Multivitamin/folic acid/Thiamine Symptom control and supportive care Sore throat/Oral Candidiasis There is Oral white Mucosal Lesions on her tongue which now is more yellow local antifungal treatment hypothyroidism TSH wnl; Synthroid was continued Persisting leukocytosis likely to C.diff will hold on oncology consult for now Poor appetite i encouraged oral intake diet supplement dietitian input noted INTERVAL HPI: As Above, Pt resting in bed. felling the same . family reported that sometimes she is not oriented. not answering questions very well Chronic diseases: Unless mentioned Above, Essential home medications have been continued. DVT Px: SCD Disposition: To be determined Plan of care Discussed with: the medical team, the patient and her family at bedside L Exam Physical Exam Vital Signs: Temp Pulse Resp BP Pulse Ox O2 Del Method O2 Flow Rate 36.6 C 104 H 16 118/78 100 Room Air 6 09/12/23 04:00 09/12/23 08:00 09/12/23 08:00 09/12/23 08:00 09/12/23 08:00 09/12/23 08:00 09/08/23 19:23 Narrative: GEN: Partially Cooperative, Not in acute distress. NECK:Supple, ? JVD ENT: tongue lesions appear to be little better more yellow LUNGS: CTA. CV: S1S2 nl, ? M/R/G ABD: Soft, ND, NT, + BS, ? HSM EXT: No edema in LE bilaterally, right arm in sling, no calf muscle tenderness. swelling in the right arm with no warmness or tenderness . right radial pulse weak than the left (could be due to swelling and edam after the fx) NEURO: no FND PSYCH: flat affect, still lethargic. i need to repeat question multiple times toa\answering it , but alert Ox3 Objective Lab Results 09/12/23 04:49 09/12/23 04:49 Microbiology Results Microbiology 09/08/23 10:33 Blood - Left Antecubital Blood Culture - Preliminary No Growth 4 Days 09/08/23 10:07 Blood - Left Arm Blood Culture - Preliminary Meds Allergies and Active Meds Allergies fish oil Allergy (Unknown, Verified 09/08/23 09:53) Unknown Reaction Penicillins Allergy (Unknown, Verified 09/08/23 09:53) Unknown Reaction Sulfa (Sulfonamide Antibiotics) Allergy (Unknown, Verified 09/08/23 09:53) Unknown Reaction sulfamethoxazole [From Bactrim] Allergy (Verified 09/08/23 09:53) Unknown Reaction trimethoprim [From Bactrim] Allergy (Verified 09/08/23 09:53) Unknown Reaction Active Meds: Active Medications Generic Name Dose Route Start Last Admin Trade Name Freq PRN Reason Stop Dose Admin Calcium Acetate 667 mg 09/09/23 12:00 09/12/23 08:49 Calcium Acetate 667 Mg Capsule PO 09/08/24 11:59 Not Given TID.WITH.MEALS SERENA Clotrimazole 10 mg 09/09/23 18:00 09/12/23 10:40 Clotrimazole Alba 10 Mg MUCOUS MEM 09/08/24 17:59 Not Given 5XDAILY SERENA Cyclosporine 75 mg 09/09/23 11:30 09/12/23 08:49 Cyclosporine Modified 25 Mg Capsule PO 09/08/24 11:29 Not Given DAILY SERENA Darbepoetin Mariano 60 mcg 09/11/23 09:30 09/11/23 14:03 Darbepoetin Mariano In Polysorbat 60 Mcg/Ml Vial IV-PUSH 09/10/24 09:29 60 mcg Th@0900 SERENA Administration Protocol Dextrose 0 gm 09/08/23 17:36 09/08/23 18:00 Dextrose 50% In Water 25 Gm/50 Ml Syringe IV-PUSH 09/07/24 17:35 25 gm PRN PRN Administration Hypoglycemia Escitalopram Oxalate 15 mg 09/09/23 11:30 09/12/23 08:49 Escitalopram 5 Mg Tablet PO 09/08/24 11:29 Not Given DAILY SERENA Ferric Sodium Gluconate Complex 62.5 mg 09/11/23 09:30 09/11/23 14:03 Sodium Ferric Gluconat/Sucrose 62.5 Mg/5 Ml Vial IV-PUSH 09/10/24 09:29 62.5 mg Th@0900 SERENA Administration Folic Acid 5 mg 09/12/23 09:00 09/12/23 08:48 Folic Acid 1 Mg Tablet PO 09/11/24 08:59 Not Given DAILY SERENA Heparin Sodium (Porcine) 2,600 unit 09/11/23 14:06 09/11/23 14:17 Heparin 10,000 Unit/10 Ml Vial IV 09/10/24 14:05 2,600 unit PRN PRN Administration Dialysis Sodium Chloride 1,000 mls @ 0 mls/hr 09/09/23 09:08 09/11/23 14:05 0.9% Sodium Chloride 1,000 Ml MISCELLANE 09/08/24 09:07 Infused .Q0M PRN Infusion Dialysis As Directed Lactulose 20 gm 09/09/23 09:00 09/12/23 08:48 Lactulose 20 Gm/30 Ml Udc PO 09/08/24 08:59 Not Given TID SERENA Levothyroxine Sodium 75 mcg 09/09/23 11:00 09/12/23 06:37 Levothyroxine 75 Mcg Tablet PO 09/08/24 10:59 75 mcg DAILY@0630 SERENA Administration Lorazepam 0 mg 09/08/23 19:05 09/11/23 09:41 Lorazepam 1 Mg Tablet PO 03/06/24 19:04 2 mg PROTOCOL PRN Administration Alcohol Withdrawal Protocol Lorazepam 0 mg 09/08/23 19:05 09/11/23 14:18 Lorazepam 2 Mg/Ml Vial IV-PUSH 03/06/24 19:04 2 mg PROTOCOL PRN Administration Alcohol Withdrawal Protocol Magnesium Oxide 200 mg 09/10/23 09:00 09/12/23 08:49 Magnesium Oxide 400 Mg Tablet PO 09/09/24 08:59 Not Given DAILY SERENA Metoprolol Succinate 50 mg 09/08/23 22:00 09/11/23 22:57 Metoprolol Succinate 50 Mg Tab.Er.24h PO 09/07/24 21:59 Not Given QHS SERENA Multivitamins 1 tab 09/09/23 09:00 09/12/23 08:49 Multivitamin 1 Tab Tablet PO 09/08/24 08:59 Not Given DAILY SERENA Mycophenolate Sodium 720 mg 09/09/23 11:30 09/12/23 08:49 Mycophenolate Sodium 180 Mg Tablet. *Nf* PO 09/08/24 11:29 Not Given DAILY SERENA Ondansetron HCl 4 mg 09/08/23 15:49 09/11/23 14:02 Ondansetron 4 Mg/2 Ml Vial IV-PUSH 09/07/24 15:48 4 mg Q6H PRN Administration Nausea And Vomiting Oxycodone/Acetaminophen 1 tab 09/08/23 15:44 09/11/23 06:31 Oxycodone/Acetaminophen 5-325 Mg Tablet PO 1 tab Q4HR PRN Administration pain Pantoprazole Sodium 40 mg 09/12/23 09:00 09/12/23 08:49 Pantoprazole 40 Mg Tablet. PO 09/11/24 08:59 Not Given DAILY SERENA Potassium Chloride 40 meq 09/08/23 15:49 Potassium Chloride Er 20 Meq Tab.Er.Prt PO 09/07/24 15:48 DAILY PRN Hypokalemia Sodium Chloride 0 ml 09/08/23 09:52 09/11/23 22:01 Sodium Chloride 0.9 % 10 Ml Syringe IV-PUSH 09/07/24 09:51 10 ml PRN PRN Administration Flush Sodium Chloride 0 ml 09/08/23 19:08 Sodium Chloride 0.9 % 10 Ml Vial.Pf IV 09/07/24 19:07 PRN PRN ATIVAN DILUTION Sodium Chloride 0 ml 09/09/23 09:08 09/11/23 14:04 Sodium Chloride 0.9 % 10 Ml Syringe IV-PUSH 09/08/24 09:07 40 ml PRN PRN Administration Flush Thiamine HCl 100 mg 09/08/23 21:00 09/12/23 08:49 Thiamine 100 Mg Tablet PO 09/07/24 20:59 Not Given BID SERENA Vancomycin HCl 125 mg 09/11/23 22:30 09/12/23 08:48 Vancomycin Liquid 15,000 Mg/300 Ml Soln.Recon PO 09/20/23 22:01 125 mg QID SERENA Administration A&P - Hospitalist Assessment/Plan (1) Peritoneal dialysis catheter mechanical complication: (2) Liver transplant status: (3) Anemia of renal disease: (4) Rhabdomyolysis: (5) Dehydration: Plan Documented By: Hortensia Cordero MD 09/12/23 1136 Signed By: <Electronically signed by Hortensia Cordero MD> 09/12/23 1977 [facility] Work Phone: [phone]) 974-399804-19-2024 Progress note Author Joseph Ocampo [facility] September 12, 2023 3:40pm Note Date/Time September 12, 2023 3:[address] [facility] [address] [place] [address] Neurology Progress Note Signed Patient: Winnie Cai MR#: [id number] : 1985 Acct:[id number] Age/Sex: 38 / F Adm Date: 4 Loc: 4 Room: [address] [place] [address] Type: ADM IN Attending Dr: Tani Meehan MD Copies to: ~ Date of Service: 09/12/2023 Exam Physical Exam Vital Signs: Temp Pulse Resp BP Pulse Ox O2 Del Method O2 Flow Rate 97.9 F 102 H 16 118/78 100 Room Air 6 09/12/23 04:00 09/12/23 12:00 09/12/23 12:00 09/12/23 08:00 09/12/23 08:00 09/12/23 08:00 09/08/23 19:23 Objective Vital Signs Vital Signs: Vital Signs - 24 hr 09/11/23 15:49 09/11/23 16:00 09/11/23 16:10 Temperature 97.4 F L Pulse Rate Pulse Rate [Monitor] 104 H 98 Respiratory Rate 16 Blood Pressure Blood Pressure [Left Arm] 99/73 L 98/63 L 02 Sat by Pulse Oximetry 99 Oxygen Delivery Method Room Air Room Air 09/11/23 16:14 09/11/23 20:00 09/11/23 20:00 Temperature 98.1 F 97.9 F Pulse Rate 95 88 Pulse Rate [Monitor] Respiratory Rate 18 16 Blood Pressure 108/76 132/89 Blood Pressure [Left Arm] 02 Sat by Pulse Oximetry 100 96 Oxygen Delivery Method Room Air Room Air Room Air 09/11/23 23:19 09/12/23 04:00 09/12/23 08:00 Temperature 97.9 F Pulse Rate 96 99 104 H Pulse Rate [Monitor] Respiratory Rate 16 16 16 Blood Pressure 115/72 143/80 H 118/78 Blood Pressure [Left Arm] 02 Sat by Pulse Oximetry 99 96 100 Oxygen Delivery Method Room Air Room Air Room Air 09/12/23 08:00 09/12/23 12:00 Temperature Pulse Rate 102 H Pulse Rate [Monitor] Respiratory Rate 16 Blood Pressure Blood Pressure [Left Arm] 02 Sat by Pulse Oximetry Oxygen Delivery Method Room Air Labs 09/12/23 04:49 09/12/23 04:49 Lab Results: 09/12/23 04:49: Ammonia 17 Therapy Recommendations Therapy Recommendations: OT Recommendations OT Recommended Discharge [facility] Location OT Recommended Services at Physical Therapy,Occupational Therapy Discharge PT Recommendations PT Recommended Discharge [facility] Location PT Recommended Services at Physical Therapy,Occupational Therapy,Speech Discharge Therapy PT Discharge Comment dependent on pt progress Assessment/Plan (1) Metabolic encephalopathy: Assessment/Problem Details: CONSULT REASON: AMS SUBJECTIVE: She remains drowsy today. But is overall more alert. Is more readily interactive. She denies having any headache. Her right arm is hurting her. Denies any vision changes. No diplopia or loss of vision. She says her legs hurt depending on which way she stretches them. EXAMINATION: Laying in bed. Extensive bruising to anterior chest wall and bilateral shoulders and arms. Limbs seem well-perfused. No significant edema. Normal work of breathing. Affect flat. Somnolent. With some tactile or verbal stimulation she awakens. Attention severely impaired. Speech is hypophonic, sounds fluent and nondysarthric. Pupils appear equal. Ocular motility is full. No nystagmus. Facial sensation is normal. Hearing is normal. Facial strengthis normal. Tongue is midline. She can lift her left arm up in the air. She can hold both legs in the air. Muscle bulk is normal. Muscle tone seems normal. Mild postural tremulousness. No significant asterixis. Light touch isintact. No visualized ataxic limb movements. DATA REVIEW: -Head CT September 08, 2023 without any acute intracranial pathology ASSESSMENT: Metabolic encephalopathy related to some mild to moderate metabolic derangement,namely hyperammonemia and azotemia, both of which have normalized. She also hadsevere hyponatremia presenting with a sodium of 117 and nowadays it is 130. Nelida has some infection related encephalopathy due to her C. difficile colitis. She remains significantly encephalopathic but temporarily alerts and does not seem to have any focal neurological deficits. Relatively low suspicionfor any acute intracranial process, but given that she is pharmacologically immunosuppressed, we might consider intracranial imaging anyway if her mental status does not continue to improve. I think the consensus is now that she has been drinking alcohol regularly at home so that withdrawal process might also beresulting in some encephalopathy. PLAN: 1. Continue the thiamine and folic acid supplementation 2. Will reevaluate and consider additional intracranial imaging Plan: Plan Documented By: Joseph Oacmpo DO 09/12/23 1536 Signed By: <Electronically signed by Joseph Ocampo DO> 09/12/23 1540 [facility] Work Phone: [phone]) [phone] Consult note Author Chuy Mojica [facility] September 12, 2023 3:28pm Note Date/Time September 12, 2023 3:[address] [facility] [address] [place] [address] Orthopedic Consult Note Signed Patient: Winnie Cai MR#: [id number] : 1985 Acct:[id number] Age/Sex: 38 / F Adm Date: 4 Loc: Room: [address] [place] [address] Type: ADM IN Attending Dr: Tani Meehan MD Copies to: NON STAFF MD Chuy Washington DO~ History of Present Illness HPI Consult date: 09/12/2023 Requesting provider: Hortensia Cordero MD Consult reason: fracture History of present illness: Winnie is a 38-year-old female with a significant past medical history of alcoholic liver failure status post transplant in 2014, end-stage renal disease on peritoneal dialysis since 2020, anemia secondary to chronic kidney disease, tobacco abuse, anxiety, hypothyroidism. Patient is currently in the hospital for alcohol withdrawal as well as C. difficile infection. Orthopedic surgery was consulted for right proximal humerus fracture. She was seen at [facility] and was seen to have a nondisplaced proximal humerus fracture per previous documentation. Repeat x-ray was obtained 09/12/2023 which shows displaced proximal humerus fracture. There is also question that patient had a faint pulse on that same extremity. During exam, patient is not able to answer questions appropriately. Most of the information is obtained by her grandmotheras well as her aunt. Per the grandmother, the patient has been complaining of pain all over. She did have a fall on 09/01/2023 where she sustained this right shoulder injury. She lives alone and it appears that the patient was not takingher normal medications as well as she was not performing her normal peritoneal dialysis. Patient was also consuming alcohol during that time. The grandmotherand the aunt deny any additional fall after the initial injury on 09/01/2023. Although difficult to receive an answer, patient denies any numbness or tinglingin her hand. She denies any pain elsewhere at this time. Review of Systems Review of Systems All other systems reviewed & are negative unless noted below or in HPI [facility] Medical History Tobacco dependence Thyroid dysfunction Accelerated essential hypertension Anxiety History of shoulder fracture right History of peritoneal dialysis Family History Family/Other Legacy FamHx Problem: SISTER IS NON MEDICAL:NO CHILDREN Social History Smoking Status: Current every day smoker Tobacco Type: cigarettes Substance Use Type: Marijuana Substance Abuse Comment: Pt. smokes marijuana a couple times a day Allergies & Medications Medications and Allergies Allergies fish oil Allergy (Unknown, Verified 09/08/23 09:53) Unknown Reaction Penicillins Allergy (Unknown, Verified 09/08/23 09:53) Unknown Reaction Sulfa (Sulfonamide Antibiotics) Allergy (Unknown, Verified 09/08/23 09:53) Unknown Reaction sulfamethoxazole [From Bactrim] Allergy (Verified 09/08/23 09:53) Unknown Reaction trimethoprim [From Bactrim] Allergy (Verified 09/08/23 09:53) Unknown Reaction Home Medications alprazolam 0.25 mg tablet 0.25 mg PO QHS PRN sleep 09/08/23 [History Confirmed 09/08/23] calcium acetate 667 mg tablet 667 mg PO TID 09/08/23 [History Confirmed 09/08/23] cyclosporine 100 mg capsule 75 mg PO DAILY 09/08/23 [History Confirmed 09/08/23] epoetin mariano 10,000 unit/mL injection solution (Epogen) 10,000 unit subcut .weekly 09/08/23 [History Confirmed 09/08/23] escitalopram oxalate 5 mg tablet (Lexapro) 15 mg PO DAILY 09/08/23 [History Confirmed 09/08/23] gentamicin 0.1 % topical cream 1 applic topical DAILY 09/08/23 [History Confirmed 09/08/23] levothyroxine 75 mcg capsule 75 mcg PO DAILY 09/08/23 [History Confirmed 09/08/23] losartan 50 mg tablet 50 mg PO QHS 09/08/23 [History Confirmed 09/08/23] magnesium glycinate 100 mg tablet (Mag Glycinate) 100 mg PO BID 09/08/23 [History Confirmed 09/08/23] metoprolol succinate 50 mg tablet,extended release 24 hr 50 mg PO QHS 09/08/23 [History Confirmed 09/08/23] mycophenolate sodium 360 mg tablet,delayed release (Myfortic) 720 mg PO DAILY 09/08/23 [History Confirmed 09/08/23] omeprazole 20 mg capsule,delayed release 20 mg PO DAILY 09/08/23 [History Confirmed 09/08/23] orphenadrine citrate 100 mg tablet,extended release 100 mg PO BID 09/08/23 [History Confirmed 09/08/23] oxycodone-acetaminophen 5 mg-325 mg tablet 1 tab PO Q4HR PRN pain 09/08/23 [History Confirmed 09/08/23] potassium chloride 20 mEq tablet,extended release 20 meq PO DAILY 09/08/23 [History Confirmed 09/08/23] protein supplement 1 ea PO .three times a week 09/08/23 [History Confirmed 09/08/23] Exam Physical Exam Vital Signs: Temp Pulse Resp BP Pulse Ox O2 Del Method O2 Flow Rate 97.9 F 102 H 16 118/78 100 Room Air 6 09/12/23 04:00 09/12/23 12:00 09/12/23 12:00 09/12/23 08:00 09/12/23 08:00 09/12/23 08:00 09/08/23 19:23 Patient laying in bed slightly agitated. Cannot answer questions. Opens her eyes to verbal response. Wiggling all extremities. Examination of the right shoulder shows ecchymosis diffusely extending down the humerus. Tenderness palpation around the shoulder region diffusely. No tenderness around the elbow, wrist, hand. Wiggling fingers. Sensation appears to be intact. Brisk cap refill in all digits. Radial artery 2/2. Secondary skeletal survey negative Results - Orthopedics Lab Results 09/12/23 04:49 09/12/23 04:49 Labs: Laboratory Results - Last 48 hrs. 09/12/23 04:49: Corrected WBC 12.6 H, RBC 2.67 L, Hgb 7.8 L, Hct 23.7 L, MCV 88.9, MCH 29.1, MCHC 32.8, RDW 15.7 H, Plt Count 119 L, MPV 7.4, PHA Creatinine Clear 19.35, Sodium 130 L, Potassium 3.2 L, Chloride 92 L, Carbon Dioxide 29.3, Anion Gap 11.9, BUN 18, Creatinine 3.61 H D, Est GFR (CKD-EPI) 15.651, Glucose 70, Calcium 7.8 L, Phosphorus 2.7, Ammonia 17, Albumin 2.2 L 09/11/23 09:53: POC Glucose 82 09/11/23 05:21: Corrected WBC 22.6 H, RBC 2.50 L, Hgb 7.4 L, Hct 22.2 L, MCV 88.5, MCH 29.4, MCHC 33.2, RDW 15.6 H, Plt Count 131 L, MPV 7.4, PT 12.8, INR 1.1, APTT 27.2, PHA Creatinine Clear 8.89, Sodium 128 L, Potassium 3.0 L, Chloride 87 L, Carbon Dioxide 28.0, Anion Gap 16.0 H, BUN 42 H, Creatinine 7.26 H D, Est GFR (CKD-EPI) 6.767, Glucose 67 L, Calcium 8.3 L, Phosphorus 5.7 H, Total Creatine Kinase 189, Albumin 2.2 L 09/10/23 21:49: C. difficile Tox B Gene Positive A* 09/10/23 21:38: POC Glucose 148 09/08/23 20:11: Crossmatch (AHG) See Detail H & H 09/08/23 09/08/23 09/09/23 Range/Units 10:07 16:11 04:35 Hgb 7.3 L 6.2 L 7.5 L (11.8-15.4) g/dL Hct 22.9 L 19.4 L* 22.9 L (34.0-46.4) % 09/10/23 09/11/23 09/12/23 Range/Units 04:24 05:21 04:49 Hgb 7.8 L 7.4 L 7.8 L (11.8-15.4) g/dL Hct 23.7 L 22.2 L 23.7 L (34.0-46.4) % Coagulation 09/08/23 09/11/23 Range/Units 10:07 05:21 INR 1.4 1.1 All other labs are normal. Microbiology Results Microbiology: Microbiology - Results from entire visit 09/08/23 10:33 Blood - Left Antecubital Blood Culture - Preliminary No Growth 4 Days 09/08/23 10:07 Blood - Left Arm Blood Culture - Preliminary 09/10/23 21:49 Stool Stool Lactoferrin - Final 09/08/23 18:57 Catheter Tip Catheter Tip Culture - Final No Growth 2 Days Imaging & Diagnostic Results Imaging/Diagnostics: 4 view radiographs of the right shoulder obtained in the hospital 09/12/2023 personally interpreted by me show comminuted proximal humerus fracture with significant displacement medially of the humeral shaft. Mildly displaced fracture of the greater tuberosity in the shoulder. Assessment/Plan (1) Closed fracture of right proximal humerus: Code(s): S42.201A - Unspecified fracture of upper end of right humerus, initial encounterfor closed fracture Plan Patient sustained a mechanical fall onto her right shoulder on 09/01/2023. Repeatx-rays show significant displacement of the fracture of the proximal humerus. Discussed surgical versus conservative options with the grandmother and aunt. At this time due to her acute medical issues, I would not recommend surgical intervention. Given her age, I would consider open reduction internal fixation of her right proximal humerus fracture however I am concerned about her following postoperative precautions as well as her bone quality secondary to herend-stage renal disease. At this time, I do not recommend surgical interventionwhile in the hospital. -No orthopedic surgical intervention at this time -Nonweightbearing right upper extremity. Sling for comfort -Continue care per medicine team -Multimodal pain control -Follow-up outpatient to discuss continued conservative management versus surgical intervention. Office information in discharge instructions Documented By: Chuy Mojica DO 09/12/23 1519 Signed By: <Electronically signed by Chuy Mojica DO> 09/12/23 1528 [facility] Work Phone: [phone] 191-865504-19-2024 Progress note [facility] September 12, 2023 12:05pm Note Date/Time September 12, 2023 12: 05pm [facility] [address] [place] [address] Nephrology Progress Note Signed Patient: Winnie Cai MR#: [id number] : 1985 Acct:[id number] Age/Sex: 38 / F Adm Date: 4 Loc: Room: [address] [place] [address] Type: ADM IN Attending Dr: Tani Meehan MD Copies to: ~ Date of Service: 09/12/2023 Subjective Subjective Narrative: Ms. 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 PD was started at [place] however he moved to [place] closer to her home. She has a history of liver transplant due to alcoholic liver cirrhosis at [facility] 2014. She did require hemodialysis in the perioperative period and later on was transitioned to PD. Patient has been noncompliant with peritoneal dialysis and missing multiple treatments at home per her records. Patient was brought to the ER on 09/07 as she has been significantly weak and dehydrated. Patient sustained a fall after she tripped last week and went to [facility] ER but she was found to have fracture of the right head of humerus. Right hand currently in sling dressing she is supposed to see orthopedics as outpatient. Patient was not able to do peritoneal dialysis at home since she has limited mobility of the right arm. Patient reported that she has not been eating or drinking over the last few days. Evaluation in the ER showed large hematoma around the shoulder and the chest. She was tachycardic 111 however blood pressure 115/73. No fever or chills. WBCs count was found to be [id number]. Patient was started empirically on vancomycin and Zosyn after 2 sets ofblood culture was obtained. Hemoglobin was low 7.3 compared to 10 g/dL on . She has mildly elevated INR 1.4 despite she is not on any blood thinners medication. There is a report by nursing staff that patient still drinking vodka however it does not confirm. Ethyl alcohol level on admission was less than 10 mg/dL. Interval history: Patient had full hemodialysis yesterday using her temporary hemodialysis catheter. Patient moved out of the ICU. She still confused in the setting of C. difficile colitis and possibly alcohol withdrawal symptoms. She is on CIWA scale. Leukocytosis did improve with WBCs count down to 12,000 on oral vancomycin for C. difficile. Blood cultures are negative. PD catheter tip is negative as well with no evidence of peritonitis. Patient still has temporary hemodialysis catheter waiting for improvement of general condition before inserting tunneled hemodialysis catheter. Vascular surgery was consulted. PD catheter was removed. Exam Physical Exam Vital Signs: Temp Pulse Resp BP Pulse Ox O2 Del Method O2 Flow Rate 36.6 C 104 H 16 118/78 100 Room Air 6 09/12/23 04:00 09/12/23 08:00 09/12/23 08:00 09/12/23 08:00 09/12/23 08:00 09/12/23 08:00 09/08/23 19:23 Narrative: Constitutional: Patient is more awake today however she looks ill and older thanher stated age. HEENT: She has significant pallor. No jaundice or cyanosis. Mucous membranes are dry. Cardiovascular: RRR, tachycardic, normal S1-S2, no gallop or rub, No JVD Respiratory: Good bilateral air entry no wheezing or crackles Gastrointestinal: Soft, non tender, positive bowel sounds. PD catheter exit site on the left lower quadrant with surrounding erythema. The catheter itself is broken with no transfer set. Catheter tip covered with tape not even a clamp. Extremities: No edema Skin:Hematoma over the right arm extending to the chest Musculoskeletal: No joints swellings or inflammation Neurology: Awake, however she is more confused today. She is able to respond toquestions however she has difficulty finding words. She has mild tremors. Psych: Normal mood and affect Objective Intake and Output I&O: Intake & Output 09/09/23 09/10/23 09/11/23 09/12/23 23:59 23:59 23:59 23:59 Intake Total 880 / 880 470 / 470 720 / 720 200 / 200 Output Total 2630 / 2630 0 / 0 2502 / 2502 Balance -1750 / -1750 470 / 470 -1782 / -1782 200 / 200 Weight 67.2 kg 65.6 kg 65.9 kg 66.7 kg Meds and Allergies Meds: Active Medications Calcium Acetate (Calcium Acetate 667 Mg Capsule) 667 mg PO TID.WITH.MEALS [facility] Stop: 09/08/24 11:59 Last Admin: 09/12/23 08:49 Dose: Not Given Clotrimazole (Clotrimazole Alba 10 Mg) 10 mg MUCOUS MEM 5XDAILY [facility] Stop: 09/08/24 17:59 Last Admin: 09/12/23 10:40 Dose: Not Given Cyclosporine (Cyclosporine Modified 25 Mg Capsule) 75 mg PO DAILY [facility] Stop: 09/08/24 11:29 Last Admin: 09/12/23 08:49 Dose: Not Given Darbepoetin Mariano (Darbepoetin Mariano In Polysorbat 60 Mcg/Ml Vial) 60 mcg IV-PUSHTh@0900 [facility]; Protocol Stop: 09/10/24 09:29 Last Admin: 09/11/23 14:03 Dose: 60 mcg Dextrose (Dextrose 50% In Water 25 Gm/50 Ml Syringe) 0 gm IV-PUSH PRN PRN PRN Reason: Hypoglycemia Stop: 09/07/24 17:35 Last Admin: 09/08/23 18:00 Dose: 25 gm Escitalopram Oxalate (Escitalopram 5 Mg Tablet) 15 mg PO DAILY [facility] Stop: 09/08/24 11:29 Last Admin: 09/12/23 08:49 Dose: Not Given Ferric Sodium Gluconate Complex (Sodium Ferric Gluconat/Sucrose 62.5 Mg/5 Ml Vial) 62.5 mg IV-PUSH Th@0900 [facility] Stop: 09/10/24 09:29 Last Admin: 09/11/23 14:03 Dose: 62.5 mg Folic Acid (Folic Acid 1 Mg Tablet) 5 mg PO DAILY SERENA Stop: 09/11/24 08:59 Last Admin: 09/12/23 08:48 Dose: Not Given Heparin Sodium (Porcine) (Heparin 10,000 Unit/10 Ml Vial) 2,600 unit IV PRN PRN PRN Reason: Dialysis Stop: 09/10/24 14:05 Last Admin: 09/11/23 14:17 Dose: 2,600 unit Sodium Chloride (0.9% Sodium Chloride 1,000 Ml) 1,000 mls @ 0 mls/hr MISCELLANE.Q0M PRN PRN Reason: Dialysis Stop: 09/08/24 09:07 Last Infusion: 09/11/23 14:05 Dose: Infused Lactulose (Lactulose 20 Gm/30 Ml Udc) 20 gm PO TID SERENA Stop: 09/08/24 08:59 Last Admin: 09/12/23 08:48 Dose: Not Given Levothyroxine Sodium (Levothyroxine 75 Mcg Tablet) 75 mcg PO DAILY@0630 [facility] Stop: 09/08/24 10:59 Last Admin: 09/12/23 06:37 Dose: 75 mcg Lorazepam (Lorazepam 1 Mg Tablet) 0 mg PO PROTOCOL PRN; Protocol PRN Reason: Alcohol Withdrawal Stop: 03/06/24 19:04 Last Admin: 09/11/23 09:41 Dose: 2 mg Lorazepam (Lorazepam 2 Mg/Ml Vial) 0 mg IV-PUSH PROTOCOL PRN; Protocol PRN Reason: Alcohol Withdrawal Stop: 03/06/24 19:04 Last Admin: 09/11/23 14:18 Dose: 2 mg Magnesium Oxide (Magnesium Oxide 400 Mg Tablet) 200 mg PO DAILY [facility] Stop: 09/09/24 08:59 Last Admin: 09/12/23 08:49 Dose: Not Given Metoprolol Succinate (Metoprolol Succinate 50 Mg Tab.Er.24h) 50 mg PO QHS [facility] Stop: 09/07/24 21:59 Last Admin: 09/11/23 22:57 Dose: Not Given Multivitamins (Multivitamin 1 Tab Tablet) 1 tab PO DAILY [facility] Stop: 09/08/24 08:59 Last Admin: 09/12/23 08:49 Dose: Not Given Mycophenolate Sodium (Mycophenolate Sodium 180 Mg Tablet. *Nf*) 720 mg PO DAILY [facility] Stop: 09/08/24 11:29 Last Admin: 09/12/23 08:49 Dose: Not Given Ondansetron HCl (Ondansetron 4 Mg/2 Ml Vial) 4 mg IV-PUSH Q6H PRN PRN Reason: Nausea And Vomiting Stop: 09/07/24 15:48 Last Admin: 09/11/23 14:02 Dose: 4 mg Oxycodone/Acetaminophen (Oxycodone/Acetaminophen 5-325 Mg Tablet) 1 tab PO [id number] PRN Reason: pain Last Admin: 09/11/23 06:31 Dose: 1 tab Pantoprazole Sodium (Pantoprazole 40 Mg Tablet.) 40 mg PO DAILY [facility] Stop: 09/11/24 08:59 Last Admin: 09/12/23 08:49 Dose: Not Given Potassium Chloride (Potassium Chloride Er 20 Meq Tab.Er.Prt) 40 meq PO DAILY PRN PRN Reason: Hypokalemia Stop: 09/07/24 15:48 Sodium Chloride (Sodium Chloride 0.9 % 10 Ml Syringe) 0 ml IV-PUSH PRN PRN PRN Reason: Flush Stop: 09/07/24 09:51 Last Admin: 09/11/23 22:01 Dose: 10 ml Sodium Chloride (Sodium Chloride 0.9 % 10 Ml Vial.Pf) 0 ml IV PRN PRN PRN Reason: ATIVAN DILUTION Stop: 09/07/24 19:07 Sodium Chloride (Sodium Chloride 0.9 % 10 Ml Syringe) 0 ml IV-PUSH PRN PRN PRN Reason: Flush Stop: 09/08/24 09:07 Last Admin: 09/11/23 14:04 Dose: 40 ml Thiamine HCl (Thiamine 100 Mg Tablet) 100 mg PO BID [facility] Stop: 09/07/24 20:59 Last Admin: 09/12/23 08:49 Dose: Not Given Vancomycin HCl (Vancomycin Liquid 15,000 Mg/300 Ml Soln.Recon) 125 mg PO QID [facility] Stop: 09/20/23 22:01 Last Admin: 09/12/23 08:48 Dose: 125 mg Allergies fish oil Allergy (Unknown, Verified 09/08/23 09:53) Unknown Reaction Penicillins Allergy (Unknown, Verified 09/08/23 09:53) Unknown Reaction Sulfa (Sulfonamide Antibiotics) Allergy (Unknown, Verified 09/08/23 09:53) Unknown Reaction sulfamethoxazole [From Bactrim] Allergy (Verified 09/08/23 09:53) Unknown Reaction trimethoprim [From Bactrim] Allergy (Verified 09/08/23 09:53) Unknown Reaction Results - Nephrology Labs 09/12/23 04:49 09/12/23 04:49 Labs: 09/12/23 04:49 BUN 18 Creatinine 3.61 H D Phosphorus 2.7 Albumin 2.2 L Radiology Impressions Impressions - last 24 hours: Any impression(s) listed above is documentation that was entered by the reading physician into a diagnostic report(s) for Winnie Cai. I have reviewed the report(s) and am incorporating any findings in the treatment plan of this patient where applicable. 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 Patient had REED at the time of liver transplant as well and she did require short period of hemodialysis. Patient is back on dialysis since 05/04/2021. She was switched to IHD from PD on 09/07 after she fell and fractured her right arm. Patient has not been compliant with PD at home as well. (2) History of peritoneal dialysis: Assessment/Problem Details: * PD catheter was removed on 09/07 as it was broken and not usable. Patient also not able to do PD related to right arm fracture. * PD catheter tip culture still negative x 1 day (3) Leucocytosis: Assessment/Problem Details: Patient has leukocytosis 30,000 with broken PD catheter and evidence of PD catheter exit site erythema. Possibility of peritonitis cannot be excluded however patient does not have PD fluid in the abdomen to drain for testing. PD catheter was broken and cannot be used for manual exchange * CT scan of the abdomen suggestive of colitis. Blood and catheter tip cultures showed no growth. Antibiotics were stopped. * Stool for C. difficile is positive n 09/09, patient was started on oral vancomycin. (4) Anemia of renal disease: Assessment/Problem Details: Patient has significant drop of hemoglobin over the last week after fall and right humerus fracture. She has large hematoma over the right arm and chest. INR also mildly elevated. Last hemoglobin was 10 g/dL on August 19 * Hemoglobin did drop down to 6.2 g/dL on 09/07 with no evidence of active bleeding. Patient had 1 unit of packed RBCs * Iron stores and B12 are adequate however folic acid is low 5.7. Patient was started on oral folic acid 1 mg daily on 09/07. * Start Aranesp 40 mcg weekly with dialysis (5) Rhabdomyolysis: Assessment/Problem Details: Patient has elevated CPK with mild rhabdomyolysis s/p fall. CPK is trending down (6) History of shoulder fracture: Assessment/Problem Details: Patient has right humerus fracture s/p fall after she tripped at home. (7) Liver transplant status: Assessment/Problem Details: Patient status post liver transplant at [facility] on October 2014. She has mild elevated AST however ALT and bilirubin are normal. There is question that the patient still drinking vodka however is not confirmed. INR is elevated. Plan * Patient had full hemodialysis yesterday. Potassium still low at 3.2 mmol/L despite dialysis for K bath yesterday related to decreased oral intake and diarrhea. Patient on as needed potassium chloride 40 mEq. * Patient on oral vancomycin for C. difficile colitis. Antibiotics were stopped. WBCs count has markedly improved * Patient still has temporary femoral hemodialysis catheter. Tunneled hemodialysis catheter will be arranged before discharge after improvement of mental status. Vascular surgery was consulted * Continue current liver transplant medications including mycophenolate 750 mg p.o. daily and cyclosporine 75 mg p.o. daily. * Monitor daily intake and output, renal panel and CBC to adjust medications, dialysis prescription and blood transfusion as indicated. Documented By: Tima Lara MD 09/12/23 1201 Signed By: <Electronically signed by MD Tima Lara> 09/12/23 [address] [facility] Work Phone: [phone] Progress note Author Hortensia Cordero [facility] September 11, 2023 11:45pm Note Date/Time September 11, 2023 7:[address] 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 Diff infection remain afebrile, hemodynamically stable, still have leukocytosis CT abd shows diffuse wall thickening within the colon with accompanying pericolonic fat stranding. This is consistent with colitis which may be infectious or inflammatory. A small amount of peritoneal free fluid is noted with a peritoneal dialysis catheter in the left lower quadrant. C.Diff testing came back positive Vancomycin PO Sepsis related C Diff infection The patient was found with severe leukocytosis with WBC up to 40K and tachycardia. initial lactic acid level was not elevated up. There is no sign of clear infection. Leukocytosis could be due to dehydration. Given her PD cathetermalfunction PD cath infection can?t be ruled out The patient received IVF in the ED. Then she was reevaluated after IVF within 6 hours: the Capillary refill is more than 3 seconds, Pulses present bilaterally and Skin normal for ethnicity. repeat lactate level was done she was started empirically on broad spectrum IV antibiotics with Invanz (PNC allergy) and Vancomycin IV . however C. diff came back postive which explain herleukocytosis. given no sign of other infedtion and negative blood Cx. broad spectrum IV was discontinued Blood Cx remain negative infected PD catheter - Ruled out there is no abdominal pain Catheter Tip Cx remain negative Rule out Acute on Chronic Anemia Chronic Anemia of CKD no overt bleeding Hg improved and stable Hg of the presentation 7.3. No recent Hg to compare. no overt bleeding. she follow up for anemia with [facility]. Hg dropped to 6.2 with hydration she was transfused one unit of blood with improvement of her Hg PLT > 50 INR 1.4 (vitamin K oral was given which improves INR to 1.1) B12 up to 3900 ferritin 874 , Transferrin is low, Reticulocyte count low Transfuse as needed GI recommendation appreciated PPI changed back to PO Folate Deficiency Folate low 5.7 on Supplement ESRD PD cath dysfunction Severe hyponatremia - resolved Nephrology was consulted for the management of dialysis and ESRD complication, recommendation appreciated. PD cath removed by General surgery and temporary HD catheter placed by pulmonary. on HD Rhabdomyolysis - resolved CK up to 4600 on admission She was given IVF. CK improved to normal Possible hepatic encephalopathy ct brain shows no acute intracranial process lactulose on hold due to C.diff Ammonia in am GI recommendation appreciated Liver transplant she has liver transplant at [facility] back in 2014 due to Alcoholicliver failure. family said she may be she has not been taking her antirejection mediation . there is high possibility of noncompliance restart home antirejection medication encephalopathy the patient remain confused , family said her mental status is not back to baseline ammonia is borderline elevated and her Etoh use history is possible but not clear. neurology recommendation appreciated Elevated Troponin Mild not significant . she denied any chest pain . no EKG changes Recent right traumatic proximal humerus fracture XR shoulder at [facility] 09/01/2023 reported : Acute comminuted fracture of the surgical neck of the right proximal humerus demonstrating approximately 1 cm anteromedial displacement and slight impaction.Suspect nondisplaced fracture extension into the greater tuberosity. Approximately 1 cm linear density adjacent to the greater tuberosity of the humeral head suspicious for acute fracture fragment. Differential includes calcium hydroxyapatite deposition and calcific tendinosis of the right rotator Cuff. The patient was treated conservatively at [facility] ER c/w immobilization outpatient follow up Pain control Probable EtOH Abuse Disorder/withdrawal there is conflicting information about her drinking habit. the family doesn't know if she drink at home. the patient has vague answer about the last time she had a drink . she reported to RN on admission that she still drinks. Blood alcohol concentration is not detected on admission PEth (send out) pending [facility] protocol Multivitamin/folic acid/Thiamine Symptom control and supportive care Sore throat/Oral Candidiasis There is Oral white Mucosal Lesions on her tongue which now is more yellow local antifungal treatment hypothyroidism TSH wnl ; Synthroid was continued Persisting leukocytosis likely to C.diff will hold on oncology consult for now LINTERVAL HPI: As Above, Pt resting in bed. felling the same . family reported that sometimes she is not oriented. not answering questions very well Chronic diseases: Unless mentioned Above, Essential home medications have been continued. DVT Px: SCD Disposition: To be determined Plan of care Discussed with: the medical team, the patient and her family at bedside L Exam Physical Exam Vital Signs: Temp Pulse Resp BP Pulse Ox O2 Del Method O2 Flow Rate 36.7 C 95 18 108/76 100 Room Air 6 09/11/23 16:14 09/11/23 16:14 09/11/23 16:14 09/11/23 16:14 09/11/23 16:14 09/11/23 16:14 09/08/23 19:23 Narrative: GEN: Partially Cooperative, Not in acute distress. NECK: Supple, ? JVD ENT: less white spot covering of the tongue LUNGS: CTA. CV: S1S2 nl, ? M/R/G ABD: Soft, ND, NT, + BS, ? HSM EXT: No edema in LE bilaterally, right arm in sling, no calf muscle tenderness. NEURO: no FND PSYCH: flat affect, still lethargic . not answering question, but alert Ox3 Objective Lab Results 09/11/23 05:21 09/11/23 05:21 Microbiology Results Microbiology 09/08/23 10:33 Blood - Left Antecubital Blood Culture - Preliminary No Growth 3 Days 09/08/23 10:07 Blood - Left Arm Blood Culture - Preliminary 09/10/23 21:49 Stool Stool Lactoferrin - Final Meds Allergies and Active Meds Allergies fish oil Allergy (Unknown, Verified 09/08/23 09:53) Unknown Reaction Penicillins Allergy (Unknown, Verified 09/08/23 09:53) Unknown Reaction Sulfa (Sulfonamide Antibiotics) Allergy (Unknown, Verified 09/08/23 09:53) Unknown Reaction sulfamethoxazole [From Bactrim] Allergy (Verified 09/08/23 09:53) Unknown Reaction trimethoprim [From Bactrim] Allergy (Verified 09/08/23 09:53) Unknown Reaction Active Meds: Active Medications Generic Name Dose Route Start Last Admin Trade Name Freq PRN Reason Stop Dose Admin Calcium Acetate 667 mg 09/09/23 12:00 09/11/23 15:32 Calcium Acetate 667 Mg Capsule PO 09/08/24 11:59 Not Given TID.WITH.MEALS [facility] Clotrimazole 10 mg 09/09/23 18:00 09/11/23 15:32 Clotrimazole Alba 10 Mg MUCOUS MEM 09/08/24 17:59 Not Given 5XDAILY [facility] Cyclosporine 75 mg 09/09/23 11:30 09/11/23 09:02 Cyclosporine Modified 25 Mg Capsule PO 09/08/24 11:29 75 mg DAILY [facility] Administration Darbepoetin Mariano 60 mcg 09/11/23 09:30 09/11/23 14:03 Darbepoetin Mariano In Polysorbat 60 Mcg/Ml Vial IV-PUSH 09/10/24 09:29 60 mcg Th@0900 [facility] Administration Protocol Dextrose 0 gm 09/08/23 17:36 09/08/23 18:00 Dextrose 50% In Water 25 Gm/50 Ml Syringe IV-PUSH 09/07/24 17:35 25 gm PRN PRN Administration Hypoglycemia Escitalopram Oxalate 15 mg 09/09/23 11:30 09/11/23 09:06 Escitalopram 5 Mg Tablet PO 09/08/24 11:29 15 mg DAILY [facility] Administration Ferric Sodium Gluconate Complex 62.5 mg 09/11/23 09:30 09/11/23 14:03 Sodium Ferric Gluconat/Sucrose 62.5 Mg/5 Ml Vial IV-PUSH 09/10/24 09:29 62.5 mg Th@0900 [facility] Administration Folic Acid 1 mg 09/09/23 09:00 09/11/23 09:00 Folic Acid 1 Mg Tablet PO 09/08/24 08:59 Not Given DAILY [facility] Heparin Sodium (Porcine) 2,600 unit 09/11/23 14:06 09/11/23 14:17 Heparin 10,000 Unit/10 Ml Vial IV 09/10/24 14:05 2,600 unit PRN PRN Administration Dialysis Sodium Chloride 1,000 mls @ 0 mls/hr 09/09/23 09:08 09/11/23 14:05 0.9% Sodium Chloride 1,000 Ml MISCELLANE 09/08/24 09:07 Infused .Q0M PRN Infusion Dialysis As Directed Lactulose 20 gm 09/09/23 09:00 09/11/23 15:32 Lactulose 20 Gm/30 Ml Udc PO 09/08/24 08:59 Not Given TID [facility] Levothyroxine Sodium 75 mcg 09/09/23 11:00 09/11/23 06:31 Levothyroxine 75 Mcg Tablet PO 09/08/24 10:59 75 mcg DAILY@0630 [facility] Administration Lorazepam 0 mg 09/08/23 19:05 09/11/23 09:41 Lorazepam 1 Mg Tablet PO 03/06/24 19:04 2 mg PROTOCOL PRN Administration Alcohol Withdrawal Protocol Lorazepam 0 mg 09/08/23 19:05 09/11/23 14:18 Lorazepam 2 Mg/Ml Vial IV-PUSH 03/06/24 19:04 2 mg PROTOCOL PRN Administration Alcohol Withdrawal Protocol Magnesium Oxide 200 mg 09/10/23 09:00 09/11/23 09:00 Magnesium Oxide 400 Mg Tablet PO 09/09/24 08:59 Not Given DAILY [facility] Metoprolol Succinate 50 mg 09/08/23 22:00 09/10/23 22:10 Metoprolol Succinate 50 Mg Tab.Er.24h PO 09/07/24 21:59 50 mg QHS [facility] Administration Morphine Sulfate 2 mg 09/08/23 15:49 09/11/23 14:02 Morphine Sulfate 2 Mg/Ml Vial IV-PUSH 2 mg Q4H PRN Administration Pain Scale 7 - 10 Multivitamins 1 tab 09/09/23 09:00 09/11/23 09:00 Multivitamin 1 Tab Tablet PO 09/08/24 08:59 Not Given DAILY [facility] Mycophenolate Sodium 720 mg 09/09/23 11:30 09/10/23 08:59 Mycophenolate Sodium 180 Mg Tablet. *Nf* PO 09/08/24 11:29 720 mg DAILY [facility] Administration Ondansetron HCl 4 mg 09/08/23 15:49 09/11/23 14:02 Ondansetron 4 Mg/2 Ml Vial IV-PUSH 09/07/24 15:48 4 mg Q6H PRN Administration Nausea And Vomiting Oxycodone/Acetaminophen 1 tab 09/08/23 15:44 09/11/23 06:31 Oxycodone/Acetaminophen 5-325 Mg Tablet PO 1 tab Q4HR PRN Administration pain Pantoprazole Sodium 40 mg 09/09/23 09:00 09/11/23 09:11 Pantoprazole 40 Mg Vial IV-PUSH 09/08/24 08:59 40 mg DAILY [facility] Administration Potassium Chloride 40 meq 09/08/23 15:49 Potassium Chloride Er 20 Meq Tab.Er.Prt PO 09/07/24 15:48 DAILY PRN Hypokalemia Sodium Bicarbonate 1,300 mg 09/08/23 21:15 09/11/23 09:10 Sodium Bicarbonate 650 Mg Tablet PO 09/07/24 21:14 1,300 mg TID [facility] Administration Sodium Chloride 0 ml 09/08/23 09:52 09/11/23 06:35 Sodium Chloride 0.9 % 10 Ml Syringe IV-PUSH 09/07/24 09:51 30 ml PRN PRN Administration Flush Sodium Chloride 10 ml 09/09/23 09:00 09/11/23 09:12 Sodium Chloride 0.9 % 10 Ml Vial.Pf INJECTION 09/08/24 08:59 10 ml DAILY [facility] Administration Sodium Chloride 10 ml 09/08/23 15:48 Sodium Chloride 0.9 % 10 Ml Syringe IV-PUSH 09/07/24 15:47 PRN PRN Flush Sodium Chloride 0 ml 09/08/23 19:08 Sodium Chloride 0.9 % 10 Ml Vial.Pf IV 09/07/24 19:07 PRN PRN ATIVAN DILUTION Sodium Chloride 0 ml 09/09/23 09:08 09/11/23 14:04 Sodium Chloride 0.9 % 10 Ml Syringe IV-PUSH 09/08/24 09:07 40 ml PRN PRN Administration Flush Thiamine HCl 100 mg 09/08/23 21:00 09/11/23 09:00 Thiamine 100 Mg Tablet PO 09/07/24 20:59 Not Given BID [facility] Vancomycin HCl 125 mg 09/11/23 00:05 09/11/23 09:09 Vancomycin 125 Mg Capsule PO 09/20/23 18:01 125 mg QID [facility] Administration A&P - Hospitalist Assessment/Plan (1) Peritoneal dialysis catheter mechanical complication: (2) Liver transplant status: (3) Anemia of renal disease: (4) Rhabdomyolysis: (5) Dehydration: Plan Documented By: Hortensia Cordero MD 09/11/23 8310 Signed By: <Electronically signed by Hortensia Cordero MD> 09/11/23 [address] [facility] Work Phone: [phone] Consult note Author Joseph Ocampo [facility] September 11, 2023 5:00pm Note Date/Time September 11, 2023 5:[address] [facility] [address] [place] [address] Neurology Consult Note Signed Patient: Winnie Cai MR#: [id number] : 1985 Acct:[id number] Age/Sex: 38 / F Adm Date: 4 Loc: Room: [address] [place] [address] Type: ADM IN Attending Dr: Tani Meehan MD Copies to: NON STAFF DO Tani Carrillo MD~ HPI Consult Date: 09/11/23 Dam Attendant: Joseph Ocampo DO [facility] Medical History Tobacco dependence Thyroid dysfunction Accelerated essential hypertension Anxiety History of shoulder fracture right History of peritoneal dialysis Family History Family/Other Legacy FamHx Problem: SISTER IS NON MEDICAL:NO CHILDREN Social History Smoking Status: Current every day smoker Tobacco Type: cigarettes Substance Use Type: Marijuana Substance Abuse Comment: Pt. smokes marijuana a couple times a day Meds Medications and Allergies Allergies fish oil Allergy (Unknown, Verified 09/08/23 09:53) Unknown Reaction Penicillins Allergy (Unknown, Verified 09/08/23 09:53) Unknown Reaction Sulfa (Sulfonamide Antibiotics) Allergy (Unknown, Verified 09/08/23 09:53) Unknown Reaction sulfamethoxazole [From Bactrim] Allergy (Verified 09/08/23 09:53) Unknown Reaction trimethoprim [From Bactrim] Allergy (Verified 09/08/23 09:53) Unknown Reaction Home Medications alprazolam 0.25 mg tablet 0.25 mg PO QHS PRN sleep 09/08/23 [History Confirmed 09/08/23] calcium acetate 667 mg tablet 667 mg PO TID 09/08/23 [History Confirmed 09/08/23] cyclosporine 100 mg capsule 75 mg PO DAILY 09/08/23 [History Confirmed 09/08/23] epoetin mariano 10,000 unit/mL injection solution (Epogen) 10,000 unit subcut .weekly 09/08/23 [History Confirmed 09/08/23] escitalopram oxalate 5 mg tablet (Lexapro) 15 mg PO DAILY 09/08/23 [History Confirmed 09/08/23] gentamicin 0.1 % topical cream 1 applic topical DAILY 09/08/23 [History Confirmed 09/08/23] levothyroxine 75 mcg capsule 75 mcg PO DAILY 09/08/23 [History Confirmed 09/08/23] losartan 50 mg tablet 50 mg PO QHS 09/08/23 [History Confirmed 09/08/23] magnesium glycinate 100 mg tablet (Mag Glycinate) 100 mg PO BID 09/08/23 [History Confirmed 09/08/23] metoprolol succinate 50 mg tablet,extended release 24 hr 50 mg PO QHS 09/08/23 [History Confirmed 09/08/23] mycophenolate sodium 360 mg tablet,delayed release (Myfortic) 720 mg PO DAILY 09/08/23 [History Confirmed 09/08/23] omeprazole 20 mg capsule,delayed release 20 mg PO DAILY 09/08/23 [History Confirmed 09/08/23] orphenadrine citrate 100 mg tablet,extended release 100 mg PO BID 09/08/23 [History Confirmed 09/08/23] oxycodone-acetaminophen 5 mg-325 mg tablet 1 tab PO Q4HR PRN pain 09/08/23 [History Confirmed 09/08/23] potassium chloride 20 mEq tablet,extended release 20 meq PO DAILY 09/08/23 [History Confirmed 09/08/23] protein supplement 1 ea PO .three times a week 09/08/23 [History Confirmed 09/08/23] Exam Physical Exam Vital Signs: Temp Pulse Resp BP Pulse Ox O2 Del Method O2 Flow Rate 98.1 F 95 18 108/76 100 Room Air 6 09/11/23 16:14 09/11/23 16:14 09/11/23 16:14 09/11/23 16:14 09/11/23 16:14 09/11/23 16:14 09/08/23 19:23 Results - Neuro Laboratory Findings 09/11/23 05:21 09/11/23 05:21 Lab Results: Ammonia 59 umol/L (11-35) H 09/09/23 04:35 Diagnostic Findings Imaging/Impressions: ITS Impressions Chest X-Ray 09/08/23 10:03 IMPRESSION: No acute cardiopulmonary pathology. There is a fracture of the head and neck of the proximal humerus on the right. Impression dictated by: Sp Germain M.D.09/08/2023 10:25 AM Dictation Location: [facility] Abdomen/Pelvis CT 09/08/23 10:36 IMPRESSION: There is diffuse wall thickening within the colon with accompanying pericolonic fat stranding. This is consistent with colitis which may be infectious or inflammatory. A small amount of peritoneal free fluid is noted with a peritoneal dialysis catheter in the left lower quadrant. There is extensive previous liver transplant. Additional chronic findings are noted, as above. Impression dictated by: Sp Germain M.D.09/08/2023 12:10 PM Dictation Location: [facility] 09/08/23 10:36 IMPRESSION: No acute intracranial pathology. Impression dictated by: Sp Germain M.D.09/08/2023 12:02 PM Dictation Location: [facility] KUB X-Ray 09/09/23 12:00 IMPRESSION: RIGHT-SIDED FEMORAL LINE TIP LIKELY IN THE DISTAL IVC. GASEOUS DISTENTION INVOLVING SMALL BOWEL AND COLON POSSIBLY RELATING TO ILEUS. FOLLOW-UP IS SUGGESTED. Impression dictated by: Emeka Gardner Jr., D.O.09/09/2023 12:22 PM Dictation Location: [facility] Therapy Recommendations Therapy Recommendations: OT Recommendations OT Recommended Discharge [facility] Facility Location OT Recommended Services at Physical Therapy,Occupational Therapy Discharge PT Recommendations PT Recommended Discharge [facility] Facility Location PT Recommended Services at Physical Therapy,Occupational Therapy,Speech Discharge Therapy PT Discharge Comment dependent on pt progress Assessment/Plan (1) Metabolic encephalopathy: Assessment/Problem Details: CONSULT REASON: AMS HPI: 38-year-old woman with history of liver transplantation (2014) due to previous alcoholic liver failure and 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 This hospital stay stay, the peritoneal dialysis catheter was removed and she is on hemodialysis. She had a recent fall with a humerus fracture. Family said she had been noncompliant withmedication and was missing her home peritoneal dialysis sessions, reportedly theperitoneal dialysis catheter was malfunctioned or broken. Her family said she is no longer drinking alcohol but she reportedly told the medical staff member that she does still drink. She was found to have severe leukocytosis and has C.difficile colitis. EXAMINATION: Sleeping during hemodialysis. Extensive bruising to anterior chest wall and shoulders bilaterally, left greater than right, with strap impressions. Limbs seem well-perfused. No significant edema. Normal work of breathing. Affect normal. Somnolent. With some tactile stimulation she temporarily alerts beforedrifting back to sleep. Attention severely impaired. Paucity of speech but it sounds fluent and nondysarthric. Pupils are equal and reactive. Ocular motility is full. No nystagmus. Facial sensation is normal. Hearing is normal. Facial strength is normal. Tongue is midline. Very limited strength evaluation. Right arm currently utilized for dialysis. Legs not thoroughly tested, recent fracture. Muscle bulk is normal. Muscle tone seems normal. Mild postural tremulousness. No significant asterixis. Light touch is intact. No visualized ataxic limb movements. DATA REVIEW: -Head CT September 08, 2023 without any acute intracranial pathology ASSESSMENT: Metabolic encephalopathy related to some mild to moderate metabolic derangement,namely hyperammonemia (55) and azotemia (peak 69, improving). She also had severe hyponatremia presenting with a sodium of 117 and nowadays it is 128. Nelida has some infection related encephalopathy due to her C. difficile colitis. She remains significantly encephalopathic but temporarily alerts and does not seem to have any focal neurological deficits (though examination is limited due to a lack of participation). Relatively low suspicion for any acuteintracranial process, but given that she is pharmacologically immunosuppressed, we might consider intracranial imaging anyway. I think the consensus is now that she has been drinking alcohol regularly at home so that withdrawal process might also be resulting in some encephalopathy. PLAN: 1. Continue the thiamine and folic acid supplementation 2. Will consider MRI brain without contrast and CT head with contrast Documented By: Joseph Ocampo DO 09/11/23 4953 Signed By: <Electronically signed by Joseph Ocampo DO> 09/11/23 0595 [facility] Work Phone: [phone]) [phone] Progress note Author Essam Elashi [facility] September 11, 2023 1:09pm Note Date/Time September 11, 2023 1:[address] [facility] [address] [place] [address] Nephrology Progress Note Signed Patient: Winnie Cai MR#: [id number] : 1985 Acct:[id number] Age/Sex: 38 / F Adm Date: 4 Loc: Room: [address] [place] [address] Type: ADM IN Attending Dr: Tani Meehan MD Copies to: ~ Date of Service: 09/11/2023 Subjective Subjective Narrative: Ms. 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 PD was started at [place] however he moved to [place] closer to her home. She has a history of liver transplant due to alcoholic liver cirrhosis at [facility] 2014. She did require hemodialysis in the perioperative period and later on was transitioned to PD. Patient has been noncompliant with peritoneal dialysis and missing multiple treatments at home per her records. Patient was brought to the ER on 09/07 as she has been significantly weak and dehydrated. Patient sustained a fall after she tripped last week and went to [facility] ER but she was found to have fracture of the right head of humerus. Right hand currently in sling dressing she is supposed to see orthopedics as outpatient. Patient was not able to do peritoneal dialysis at home since she has limited mobility of the right arm. Patient reported that she has not been eating or drinking over the last few days. Evaluation in the ER showed large hematoma around the shoulder and the chest. She was tachycardic 111 however blood pressure 115/73. No fever or chills. WBCs count was found to be ,000. Patient was started empirically on vancomycin and Zosyn after 2 sets ofblood culture was obtained. Hemoglobin was low 7.3 compared to 10 g/dL on . She has mildly elevated INR 1.4 despite she is not on any blood thinners medication. There is a report by nursing staff that patient still drinking vodka however it does not confirm. Ethyl alcohol level on admission was less than 10 mg/dL. Interval history: Patient is up in the chair. She still confused with possible withdrawal symptoms. Patient patient's continue to have leukocytosis more than 20,000 and she developed diarrhea over the last couple of days. C. difficile was sent and cameback positive currently on oral vancomycin. Blood cultures are negative. PD catheter tip is negative as well with no evidence of peritonitis. Patient still has temporary hemodialysis catheter waiting for clearance of infection and improvement of mental function before getting tunneled hemodialysis catheter Exam Physical Exam Vital Signs: Temp Pulse Resp BP Pulse Ox O2 Del Method O2 Flow Rate 36.6 C 85 21 103/64 96 Room Air 6 09/11/23 12:09/11/23 12:09/11/23 12:09/11/23 12:09/11/23 12:09/11/23 12:09/08/23 19:23 Narrative: Constitutional: Patient is more awake today however she looks ill and older thanher stated age. HEENT: She has significant pallor. No jaundice or cyanosis. Mucous membranes are dry. Cardiovascular: RRR, tachycardic, normal S1-S2, no gallop or rub, No JVD Respiratory: Good bilateral air entry no wheezing or crackles Gastrointestinal: Soft, non tender, positive bowel sounds. PD catheter exit site on the left lower quadrant with surrounding erythema. The catheter itself is broken with no transfer set. Catheter tip covered with tape not even a clamp. Extremities: No edema Skin: Large hematoma over the right arm extending to the chest Musculoskeletal: No joints swellings or inflammation Neurology: Awake, however she is more confused today. She is able to respond toquestions however she has difficulty finding words. She has mild tremors. Psych: Normal mood and affect Objective Intake and Output I&O: Intake & Output 09/08/23 09/09/23 09/10/23 09/11/23 23:59 23:59 23:59 23:59 Intake Total 1870 / 1870 880 / 880 470 / 470 120 / 120 Output Total 2630 / 2630 0 / 0 Balance 1870 / 1870 -1750 / -1750 470 / 470 120 / 120 Weight 65.4 kg 67.2 kg 65.6 kg 65.9 kg Meds and Allergies Meds: Active Medications Calcium Acetate (Calcium Acetate 667 Mg Capsule) 667 mg PO TID.WITH.MEALS SERENA Stop: 09/08/24 11:59 Last Admin: 09/11/23 09:02 Dose: 667 mg Clotrimazole (Clotrimazole Alba 10 Mg) 10 mg MUCOUS MEM 5XDAILY [facility] Stop: 09/08/24 17:59 Last Admin: 09/11/23 09:54 Dose: 10 mg Cyclosporine (Cyclosporine Modified 25 Mg Capsule) 75 mg PO DAILY SERENA Stop: 09/08/24 11:29 Last Admin: 09/11/23 09:02 Dose: 75 mg Darbepoetin Mariano (Darbepoetin Mariano In Polysorbat 60 Mcg/Ml Vial) 60 mcg IV-PUSHTh@0900 [facility]; Protocol Stop: 09/10/24 09:29 Dextrose (Dextrose 50% In Water 25 Gm/50 Ml Syringe) 0 gm IV-PUSH PRN PRN PRN Reason: Hypoglycemia Stop: 09/07/24 17:35 Last Admin: 09/08/23 18:00 Dose: 25 gm Escitalopram Oxalate (Escitalopram 5 Mg Tablet) 15 mg PO DAILY [facility] Stop: 09/08/24 11:29 Last Admin: 09/11/23 09:06 Dose: 15 mg Ferric Sodium Gluconate Complex (Sodium Ferric Gluconat/Sucrose 62.5 Mg/5 Ml Vial) 62.5 mg IV-PUSH Th@0900 [facility] Stop: 09/10/24 09:29 Folic Acid (Folic Acid 1 Mg Tablet) 1 mg PO DAILY [facility] Stop: 09/08/24 08:59 Last Admin: 09/11/23 09:00 Dose: Not Given Sodium Chloride (0.9% Sodium Chloride 1,000 Ml) 1,000 mls @ 0 mls/hr MISCELLANE.Q0M PRN PRN Reason: Dialysis Stop: 09/08/24 09:07 Last Infusion: 09/09/23 16:13 Dose: Infused Lactulose (Lactulose 20 Gm/30 Ml Udc) 20 gm PO TID [facility] Stop: 09/08/24 08:59 Last Admin: 09/11/23 09:16 Dose: Not Given Levothyroxine Sodium (Levothyroxine 75 Mcg Tablet) 75 mcg PO DAILY@0630 [facility] Stop: 09/08/24 10:59 Last Admin: 09/11/23 06:31 Dose: 75 mcg Lorazepam (Lorazepam 1 Mg Tablet) 0 mg PO PROTOCOL PRN; Protocol PRN Reason: Alcohol Withdrawal Stop: 03/06/24 19:04 Last Admin: 09/11/23 09:41 Dose: 2 mg Lorazepam (Lorazepam 2 Mg/Ml Vial) 0 mg IV-PUSH PROTOCOL PRN; Protocol PRN Reason: Alcohol Withdrawal Stop: 03/06/24 19:04 Magnesium Oxide (Magnesium Oxide 400 Mg Tablet) 200 mg PO DAILY SERENA Stop: 09/09/24 08:59 Last Admin: 09/11/23 09:00 Dose: Not Given Metoprolol Succinate (Metoprolol Succinate 50 Mg Tab.Er.24h) 50 mg PO QHS SERENA Stop: 09/07/24 21:59 Last Admin: 09/10/23 22:10 Dose: 50 mg Morphine Sulfate (Morphine Sulfate 2 Mg/Ml Vial) 2 mg IV-PUSH Q4H PRN PRN Reason: Pain Scale 7 - 10 Last Admin: 09/10/23 23:48 Dose: 2 mg Multivitamins (Multivitamin 1 Tab Tablet) 1 tab PO DAILY [facility] Stop: 09/08/24 08:59 Last Admin: 09/11/23 09:00 Dose: Not Given Mycophenolate Sodium (Mycophenolate Sodium 180 Mg Tablet. *Nf*) 720 mg PO DAILY [facility] Stop: 09/08/24 11:29 Last Admin: 09/10/23 08:59 Dose: 720 mg Ondansetron HCl (Ondansetron 4 Mg/2 Ml Vial) 4 mg IV-PUSH Q6H PRN PRN Reason: Nausea And Vomiting Stop: 09/07/24 15:48 Oxycodone/Acetaminophen (Oxycodone/Acetaminophen 5-325 Mg Tablet) 1 tab PO [id number] PRN Reason: pain Last Admin: 09/11/23 06:31 Dose: 1 tab Pantoprazole Sodium (Pantoprazole 40 Mg Vial) 40 mg IV-PUSH DAILY [facility] Stop: 09/08/24 08:59 Last Admin: 09/11/23 09:11 Dose: 40 mg Potassium Chloride (Potassium Chloride Er 20 Meq Tab.Er.Prt) 40 meq PO DAILY PRN PRN Reason: Hypokalemia Stop: 09/07/24 15:48 Sodium Bicarbonate (Sodium Bicarbonate 650 Mg Tablet) 1,300 mg PO TID [facility] Stop: 09/07/24 21:14 Last Admin: 09/11/23 09:10 Dose: 1,300 mg Sodium Chloride (Sodium Chloride 0.9 % 10 Ml Syringe) 0 ml IV-PUSH PRN PRN PRN Reason: Flush Stop: 09/07/24 09:51 Last Admin: 09/11/23 06:35 Dose: 30 ml Sodium Chloride (Sodium Chloride 0.9 % 10 Ml Vial.Pf) 10 ml INJECTION DAILY SERENA Stop: 09/08/24 08:59 Last Admin: 09/11/23 09:12 Dose: 10 ml Sodium Chloride (Sodium Chloride 0.9 % 10 Ml Syringe) 10 ml IV-PUSH PRN PRN PRN Reason: Flush Stop: 09/07/24 15:47 Sodium Chloride (Sodium Chloride 0.9 % 10 Ml Vial.Pf) 0 ml IV PRN PRN PRN Reason: ATIVAN DILUTION Stop: 09/07/24 19:07 Sodium Chloride (Sodium Chloride 0.9 % 10 Ml Syringe) 0 ml IV-PUSH PRN PRN PRN Reason: Flush Stop: 09/08/24 09:07 Thiamine HCl (Thiamine 100 Mg Tablet) 100 mg PO BID SERENA Stop: 09/07/24 20:59 Last Admin: 09/11/23 09:00 Dose: Not Given Vancomycin HCl (Vancomycin 125 Mg Capsule) 125 mg PO QID SERENA Stop: 09/20/23 18:01 Last Admin: 09/11/23 09:09 Dose: 125 mg Allergies fish oil Allergy (Unknown, Verified 09/08/23 09:53) Unknown Reaction Penicillins Allergy (Unknown, Verified 09/08/23 09:53) Unknown Reaction Sulfa (Sulfonamide Antibiotics) Allergy (Unknown, Verified 09/08/23 09:53) Unknown Reaction sulfamethoxazole [From Bactrim] Allergy (Verified 09/08/23 09:53) Unknown Reaction trimethoprim [From Bactrim] Allergy (Verified 09/08/23 09:53) Unknown Reaction Results - Nephrology Labs 09/11/23 05:21 09/11/23 05:21 Labs: 09/11/23 05:21 BUN 42 H Creatinine 7.26 H D Phosphorus 5.7 H Albumin 2.2 L Radiology Impressions Impressions - last 24 hours: Any impression(s) listed above is documentation that was entered by the reading physician into a diagnostic report(s) for Winnie E Kindt. I have reviewed the report(s) and am incorporating any findings in the treatment plan of this patient where applicable. 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 Patient had REED at the time of liver transplant as well and she did require short period of hemodialysis. Patient is back on dialysis since 05/04/2021. She was switched to IHD from PD on 09/07 after she fell and fractured her right arm. Patient has not been compliant with PD at home as well. (2) History of peritoneal dialysis: Assessment/Problem Details: * PD catheter was removed on 09/07 as it was broken and not usable. Patient also not able to do PD related to right arm fracture. * PD catheter tip culture still negative x 1 day (3) Leucocytosis: Assessment/Problem Details: Patient has leukocytosis 30,000 with broken PD catheter and evidence of PD catheter exit site erythema. Possibility of peritonitis cannot be excluded however patient does not have PD fluid in the abdomen to drain for testing. PD catheter was broken and cannot be used for manual exchange * CT scan of the abdomen suggestive of colitis. Blood and catheter tip cultures showed no growth. Antibiotics were stopped. * Stool for C. difficile is positive n 09/09, patient was started on oral vancomycin. (4) Anemia of renal disease: Assessment/Problem Details: Patient has significant drop of hemoglobin over the last week after fall and right humerus fracture. She has large hematoma over the right arm and chest. INR also mildly elevated. Last hemoglobin was 10 g/dL on August 19 * Hemoglobin did drop down to 6.2 g/dL on 09/07 with no evidence of active bleeding. Patient had 1 unit of packed RBCs * Iron stores and B12 are adequate however folic acid is low 5.7. Patient was started on oral folic acid 1 mg daily on 09/07. * Start Aranesp 40 mcg weekly with dialysis (5) Rhabdomyolysis: Assessment/Problem Details: Patient has elevated CPK with mild rhabdomyolysis s/p fall. CPK is trending down (6) History of shoulder fracture: Assessment/Problem Details: Patient has right humerus fracture s/p fall after she tripped at home. (7) Liver transplant status: Assessment/Problem Details: Patient status post liver transplant at [facility] on October 2014. She has mild elevated AST however ALT and bilirubin are normal. There is question that the patient still drinking vodka however is not confirmed. INR is elevated. Plan * Hemodialysis today for 210 minutes, change potassium bath to 4K since potassium is dropped with diarrhea and CHF. 2 to 2.5 L ultrafiltration as tolerated. * Patient on oral vancomycin for C. difficile colitis. Antibiotics were stopped * Patient still has temporary femoral hemodialysis catheter. Tunneled hemodialysis catheter will be arranged before discharge after improvement of mental status. Vascular surgery was consulted * Continue current transplant medications including mycophenolate 750 mg p.o. daily and cyclosporine 75 mg p.o. daily. Importance of compliance with medications and dialysis has been addressed. * Monitor daily intake and output, renal panel and CBC to adjust medications, dialysis prescription and blood transfusion as indicated. Documented By: Tima Lara MD 09/11/23 1301 Signed By: <Electronically signed by MD Tima Lara> 09/11/23 1307 [facility] Work Phone: 1(646) 152-511604-18-2024 Consult note Author Arvind Sun [facility] September 11, 2023 1:06pm Note Date/Time September 11, 2023 1:[address] [facility] [address] [place] [address] Vascular Surgery Consult Note Signed Patient: Winnie Cai MR#: [id number] : 1985 Acct:[id number] Age/Sex: 38 / F Adm Date: 4 Loc: Room: [address] [place] [address] Type: ADM IN Attending Dr: Tani Meehan MD Copies to: NON STAFF MD Arvind Washington MD~ HPI Consult HPI Reason for consult: Need for hemodialysis access History of present illness: Ms. 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 She has been maintained on CAPD but has been unable to use her peritoneal catheter. She was admitted for initiation of hemodialysis and now has a femoral catheter. We are asked to place a tunneled hemodialysis catheter for her. Her grandmother and an aunt are present in the room and are able to give some history for her as the patient is encephalopathic. They state that recently she has been drinking and has not been taking her medications or doing her dialysis as prescribed. She has been hiding these behaviors from her family. The patient lives by herself. cc:: CC: Hortensia Cordero MD Data of Consult Consult date: 09/11/2023 Requesting Physician: Hortensia Cordero MD Review of Systems Review of Systems Unobtainable due to mental status [facility] Medical History Tobacco dependence Thyroid dysfunction Accelerated essential hypertension Anxiety History of shoulder fracture right History of peritoneal dialysis Family History Family/Other Legacy FamHx Problem: SISTER IS NON MEDICAL:NO CHILDREN Social History Smoking Status: Current every day smoker Tobacco Type: cigarettes Substance Use Type: Marijuana Substance Abuse Comment: Pt. smokes marijuana a couple times a day Allergies & Active Medications Medications and Allergies Allergies fish oil Allergy (Unknown, Verified 09/08/23 09:53) Unknown Reaction Penicillins Allergy (Unknown, Verified 09/08/23 09:53) Unknown Reaction Sulfa (Sulfonamide Antibiotics) Allergy (Unknown, Verified 09/08/23 09:53) Unknown Reaction sulfamethoxazole [From Bactrim] Allergy (Verified 09/08/23 09:53) Unknown Reaction trimethoprim [From Bactrim] Allergy (Verified 09/08/23 09:53) Unknown Reaction Exam Physical Exam Vital Signs: Temp Pulse Resp BP Pulse Ox O2 Del Method O2 Flow Rate 97.8 F 85 21 103/64 96 Room Air 6 09/11/23 12:00 09/11/23 12:00 09/11/23 12:00 09/11/23 12:00 09/11/23 12:00 09/11/23 12:00 09/08/23 19:23 Narrative: Thin female patient restless in the bed who is mumbling incoherently. She has evident alopecia to the frontal portion of her hair pattern. She moves all limbs equally but not to command. Femoral dialysis catheter is in place. Results - Vascular Surgery Labs 09/11/23 05:21 09/11/23 05:21 Labs: Laboratory Results - last 24 hr 09/10/23 09/10/23 09/11/23 21:38 21:49 05:21 Corrected WBC 22.6 H RBC 2.50 L Hgb 7.4 L Hct 22.2 L MCV 88.5 MCH 29.4 MCHC 33.2 RDW 15.6 H Plt Count 131 L MPV 7.4 PT 12.8 INR 1.1 APTT 27.2 PHA Creatinine Clear 8.89 Sodium 128 L Potassium 3.0 L Chloride 87 L Carbon Dioxide 28.0 Anion Gap 16.0 H BUN 42 H Creatinine 7.26 H D Est GFR (CKD-EPI) 6.767 Glucose 67 L POC Glucose 148 Calcium 8.3 L Phosphorus 5.7 H Total Creatine Kinase 189 Albumin 2.2 L C. difficile Tox B Gene Positive A* 09/11/23 09:53 Corrected WBC RBC Hgb Hct MCV MCH MCHC RDW Plt Count MPV PT INR APTT PHA Creatinine Clear Sodium Potassium Chloride Carbon Dioxide Anion Gap BUN Creatinine Est GFR (CKD-EPI) Glucose POC Glucose 82 Calcium Phosphorus Total Creatine Kinase Albumin C. difficile Tox B Gene PT 12.8 Seconds (9.0-12.9) 09/11/23 05:21 APTT 27.2 Seconds (25.1-36.5) 09/11/23 05:21 Microbiology Microbiology: 09/10/23 21:49 Stool Stool Lactoferrin - Final 09/08/23 18:57 Catheter Tip Catheter Tip Culture - Final No Growth 2 Days A&P - Vascular (1) Peritoneal dialysis catheter mechanical complication: (2) Liver transplant status: (3) Anemia of renal disease: (4) Rhabdomyolysis: (5) Dehydration: (6) ESRD (end stage renal disease) on dialysis: Plan She is not in good condition for placement of an elective tunneled hemodialysis catheter today. She is receiving hemodialysis during her acute illness through her femoral catheter which was recently placed. We will follow her along through the weekend and if she improves I will plan to place a catheter for her next week. Documented By: Arvind Sun MD 09/11/23 130 2 Signed By: <Electronically signed by MD Arvind Sun> 09/11/23 0546 [facility] Work Phone: 1(455) 617-225104-18-2024 Progress note Author Hortensia Cordero [facility] September 11, 2023 1:38am Note Date/Time September 10, 2023 5:[address] [facility] [address] [place] [address] Hospitalist Progress Note Signed Patient: Winnie Cai MR#: [id number] : 1985 Acct:[id number] Age/Sex: 38 / F Adm Date: 4 Loc: Room: [address] [place] [address] Type: ADM IN Attending Dr: Tani Meehan MD Copies to: ~ Date of Service: 09/10/2023 Subjective Subjective Narrative: Assessment And Plan 38F with PMH of HTN, history of Alcoholic liver failure (s/p transplant at [facility] 2014), ESRD(due to cyclosporine toxicity, on PD since 2020), Anemia of CKD, recent fall with humerus Fx, tobacco abuse, Anxiety, hypothyroid who presented with generalized weakness and mouth dryness and admitted for the evaluation and treatment of missing dialysis and to rule out sepsis Rule out Sepsis infected PD catheter - Ruled out remain afebrile, hemodynamically stable, still have leukocytosis The patient was found with severe leukocytosis with WBC up to 40K and tachycardia. initial lactic acid level was not elevated up. There is no sign of clear infection. Leukocytosis could be due to dehydration. Given her PD cathetermalfunction PD cath infection can?t be ruled out The patient received IVF in the ED. Then she was reevaluated after IVF within 6 hours: the Capillary refill is more than 3 seconds, Pulses present bilaterally and Skin normal for ethnicity. repeat lactate level was done Blood Cx remain negative Catheter Tip Cx remain negative CT abd shows diffuse wall thickening within the colon with accompanying pericolonic fat stranding. This is consistent with colitis which may be infectious or inflammatory. A small amount of peritoneal free fluid is noted with a peritoneal dialysis catheter in the left lower quadrant. she was started empirically on broad spectrum IV antibiotics with Invanz (PNC allergy) and Vancomycin IV will check C.diff and lactoferrin discontinue vancomycin due to blood negative Cx after two days Move out ICU Rule out Acute on Chronic Anemia Chronic Anemia of CKD no overt bleeding Hg improved to 7.5 Hg of the presentation 7.3. No recent Hg to compare. no overt bleeding. she follow up for anemia with [facility]. Hg dropped to 6.2 with hydration she was transfused one unit of blood with improvement of her Hg PLT > 50 INR 1.4 (vitamin K oral started) B12 up to 3900 Folate low ferritin 874 , Transferrin is low , Reticulocyte count low Transfuse as needed GI recommendation appreciated PPI to IV ESRD PD cath dysfunction hyponatremia Nephrology was consulted for the management of dialysis and ESRD complication, recommendation appreciated. PD cath removed by General surgery and HD catheter placed by pulmonary . on HD pulmonary/General surgery recommendation appreciated. Rhabdomyolysis - resolved CK up to 4600 on admission She was given IVF. CK keep improving down to 600 Liver transplant Possible hepatic encephalopathy Ammonia 55 family said she may be she has not been taking her antirejection mediation ct brain shows no acute intracranial process restart home medication lactulose on hold GI recommendation appreciated encephalopathy the patient remain confused still no clear infection , ammonia is borderline elevated and her Etoh use history is not clear. favor consulting neurology Elevated Troponin Mild not significant . she denied any chest pain . no EKG changes Recent right traumatic proximal humerus fracture XR shoulder [facility] 09/01/2023 reported : Acute comminuted fracture of the surgical neck of the right proximal humerus demonstrating approximately 1 cm anteromedial displacement and slight impaction.Suspect nondisplaced fracture extension into the greater tuberosity. Approximately 1 cm linear density adjacent to the greater tuberosity of the humeral head suspicious for acute fracture fragment. Differential includes calcium hydroxyapatite deposition and calcific tendinosis of the right rotator Cuff. The patient was treated conservatively at [facility] ER c/w immobilization outpatient follow up Pain control Suspected EtOH Abuse Disorder/withdrawal she still confused is more lethargic today there is conflicting information about her drinking habit. the family doesn't know if she drink at home. the patient has vague answer about the last time she had a drink . she reported to RN on admission that she still drink. Blood alcohol concentration is not detected [facility] protocol Multivitamin/folic acid/Thiamine Symptom control and supportive care Sore throat/Possible Candidiasis local antifungal treatment Persisting leukocytosis given her leukocytosis and anemia favor consulting oncology . [facility] HPI: As Above, Pt resting in bed. not improving. report pain all over lethargic Chronic diseases: Unless mentioned Above, Essential home medications have been continued. DVT Px: SCD Disposition: To be determined Plan of care Discussed with: the medical team, the patient L Exam Physical Exam Vital Signs: Temp Pulse Resp BP Pulse Ox O2 Del Method O2 Flow Rate 36.5 C 81 23 133/87 98 Room Air 6 09/10/23 14:00 09/10/23 14:00 09/10/23 14:00 09/10/23 14:00 09/10/23 14:00 09/10/23 16:00 09/08/23 19:23 Narrative: GEN: Pleasant, Cooperative, Not in acute distress. NECK: Supple, ? JVD ENT: less white spot covering of the tongue LUNGS: CTA. CV: S1S2 nl, ? M/R/G ABD: Soft, ND, NT, + BS, ? HSM EXT: No edema in LE bilaterally, right arm in sling, no calf muscle tenderness. NEURO: ? FND, PSYCH: flat affect, still lethargic Objective Lab Results 09/10/23 04:24 09/10/23 04:24 Microbiology Results Microbiology 09/08/23 10:33 Blood - Left Antecubital Blood Culture - Preliminary No Growth 2 Days 09/08/23 18:57 Catheter Tip Catheter Tip Culture - Final No Growth 2 Days 09/08/23 10:07 Blood - Left Arm Blood Culture - Preliminary Meds Allergies and Active Meds Allergies fish oil Allergy (Unknown, Verified 09/08/23 09:53) Unknown Reaction Penicillins Allergy (Unknown, Verified 09/08/23 09:53) Unknown Reaction Sulfa (Sulfonamide Antibiotics) Allergy (Unknown, Verified 09/08/23 09:53) Unknown Reaction sulfamethoxazole [From Bactrim] Allergy (Verified 09/08/23 09:53) Unknown Reaction trimethoprim [From Bactrim] Allergy (Verified 09/08/23 09:53) Unknown Reaction Active Meds: Active Medications Generic Name Dose Route Start Last Admin Trade Name Freq PRN Reason Stop Dose Admin Calcium Acetate 667 mg 09/09/23 12:00 09/10/23 13:05 Calcium Acetate 667 Mg Capsule PO 09/08/24 11:59 667 mg TID.WITH.MEALS SERENA Administration Clotrimazole 10 mg 09/09/23 18:00 09/10/23 13:14 Clotrimazole Alba 10 Mg MUCOUS MEM 09/08/24 17:59 10 mg 5XDAILY SERENA Administration Cyclosporine 75 mg 09/09/23 11:30 09/10/23 08:38 Cyclosporine Modified 25 Mg Capsule PO 09/08/24 11:29 75 mg DAILY SERENA Administration Dextrose 0 gm 09/08/23 17:36 09/08/23 18:00 Dextrose 50% In Water 25 Gm/50 Ml Syringe IV-PUSH 09/07/24 17:35 25 gm PRN PRN Administration Hypoglycemia Escitalopram Oxalate 15 mg 09/09/23 11:30 09/10/23 08:37 Escitalopram 5 Mg Tablet PO 09/08/24 11:29 15 mg DAILY SERENA Administration Folic Acid 1 mg 09/09/23 09:00 09/10/23 08:46 Folic Acid 1 Mg Tablet PO 09/08/24 08:59 1 mg DAILY SERENA Administration Ertapenem 0.5 gm/ Sodium 100 mls @ 200 mls/hr 09/08/23 21:00 09/09/23 22:25 Chloride IV 09/07/24 20:59 200 mls/hr Q24H SERENA Administration Sodium Chloride 1,000 mls @ 0 mls/hr 09/09/23 09:08 09/09/23 16:13 0.9% Sodium Chloride 1,000 Ml MISCELLANE 09/08/24 09:07 Infused .Q0M PRN Infusion Dialysis As Directed Lactulose 20 gm 09/09/23 09:00 09/10/23 13:05 Lactulose 20 Gm/30 Ml Udc PO 09/08/24 08:59 Not Given TID SERENA Levothyroxine Sodium 75 mcg 09/09/23 11:00 09/10/23 06:01 Levothyroxine 75 Mcg Tablet PO 09/08/24 10:59 75 mcg DAILY@0630 SERENA Administration Lorazepam 0 mg 09/08/23 19:05 09/10/23 13:14 Lorazepam 1 Mg Tablet PO 03/06/24 19:04 1 mg PROTOCOL PRN Administration Alcohol Withdrawal Protocol Lorazepam 0 mg 09/08/23 19:05 Lorazepam 2 Mg/Ml Vial IV-PUSH 03/06/24 19:04 PROTOCOL PRN Alcohol Withdrawal Protocol Magnesium Oxide 200 mg 09/10/23 09:00 09/10/23 08:46 Magnesium Oxide 400 Mg Tablet PO 09/09/24 08:59 200 mg DAILY SERENA Administration Metoprolol Succinate 50 mg 09/08/23 22:00 09/09/23 23:54 Metoprolol Succinate 50 Mg Tab.Er.24h PO 09/07/24 21:59 Not Given QHS SERENA Morphine Sulfate 2 mg 09/08/23 15:49 09/10/23 13:05 Morphine Sulfate 2 Mg/Ml Vial IV-PUSH 2 mg Q4H PRN Administration Pain Scale 7 - 10 Multivitamins 1 tab 09/09/23 09:00 09/10/23 08:44 Multivitamin 1 Tab Tablet PO 09/08/24 08:59 1 tab DAILY SERENA Administration Mycophenolate Sodium 720 mg 09/09/23 11:30 09/10/23 08:59 Mycophenolate Sodium 180 Mg Tablet.Dr *Nf* PO 09/08/24 11:29 720 mg DAILY SERENA Administration Ondansetron HCl 4 mg 09/08/23 15:49 Ondansetron 4 Mg/2 Ml Vial IV-PUSH 09/07/24 15:48 Q6H PRN Nausea And Vomiting Oxycodone/Acetaminophen 1 tab 09/08/23 15:44 09/10/23 10:26 Oxycodone/Acetaminophen 5-325 Mg Tablet PO 1 tab Q4HR PRN Administration pain Pantoprazole Sodium 40 mg 09/09/23 09:00 09/10/23 08:55 Pantoprazole 40 Mg Vial IV-PUSH 09/08/24 08:59 40 mg DAILY SERENA Administration Potassium Chloride 40 meq 09/08/23 15:49 Potassium Chloride Er 20 Meq Tab.Er.Prt PO 09/07/24 15:48 DAILY PRN Hypokalemia Sodium Bicarbonate 1,300 mg 09/08/23 21:15 09/10/23 13:05 Sodium Bicarbonate 650 Mg Tablet PO 09/07/24 21:14 1,300 mg TID SERENA Administration Sodium Chloride 0 ml 09/08/23 09:52 09/10/23 13:09 Sodium Chloride 0.9 % 10 Ml Syringe IV-PUSH 09/07/24 09:51 10 ml PRN PRN Administration Flush Sodium Chloride 10 ml 09/09/23 09:00 09/10/23 08:56 Sodium Chloride 0.9 % 10 Ml Vial.Pf INJECTION 09/08/24 08:59 10 ml DAILY SERENA Administration Sodium Chloride 10 ml 09/08/23 15:48 Sodium Chloride 0.9 % 10 Ml Syringe IV-PUSH 09/07/24 15:47 PRN PRN Flush Sodium Chloride 0 ml 09/08/23 19:08 Sodium Chloride 0.9 % 10 Ml Vial.Pf IV 09/07/24 19:07 PRN PRN ATIVAN DILUTION Sodium Chloride 0 ml 09/09/23 09:08 Sodium Chloride 0.9 % 10 Ml Syringe IV-PUSH 09/08/24 09:07 PRN PRN Flush Thiamine HCl 100 mg 09/08/23 21:00 09/10/23 08:44 Thiamine 100 Mg Tablet PO 09/07/24 20:59 100 mg BID SERENA Administration Vancomycin HCl 1 each 09/08/23 17:40 Vancomycin - Pharmacy Dosing 1 Each Miscell IV ONCE PRN ZZ.Pharmacy Consult Protocol A&P - Hospitalist Assessment/Plan (1) Peritoneal dialysis catheter mechanical complication: (2) Liver transplant status: (3) Anemia of renal disease: (4) Rhabdomyolysis: (5) Dehydration: Plan Documented By: Hortensia Cordero MD 09/10/231712 Signed By: <Electronically signed by Hortensia Cordero MD> 09/11/23 0138 [facility] Work Phone: [phone] 515-989904-17-2024 Progress note Author Larry Peters [facility] September 10, 2023 12:11pm Note Date/Time September 10, 2023 11: 21am [facility] [address] [place] [address] Pulmonology Progress Note Signed with Addenda Patient: Winnie Cai MR#: [id number] : 1985 Acct:[id number] Age/Sex: 38 / F Adm Date: 4 Loc: Room: [address] [place] [address] Type: ADM IN Attending Dr: Tani Meehan MD Copies to: ~ ADDENDUM2 CCT:30 minutes Addendum Documented By: Larry Peters MD 09/10/23 1211 Addendum Signed By: <Electronically signed by Larry Peters MD> 09/10/23 1211 ADDENDUM1 Patient seen and examined at the bedside. No acute events overnight. She is awake, alert x 3, slightly confused and agitated. She complains with pain all over her body. She is laying flat in bed, on room air, no tachypnea, no tachycardia. She did tolerate hemodialysis yesterday. He mental status close no change, new anterior pressure higher than 65. No signs of hypoperfusion. Abdomen is benign. Nondistended, no tenderness, no rebound. She is passing bowel movements. Patient was in lactulose. CT abdomen showed some colitis. Cdiffis in the differential. Hold lactulose. Obtain C diff toxin in stools if diarrhea persists. Her blood cell count is elevated. Patient is afebrile. Nephrology following.. I will sign off Addendum Documented By: Larry Peters MD 09/10/23 1208 Addendum Signed By: <Electronically signed by Larry Peters MD> 09/10/23 1208 Date of Service: 09/10/2023 Subjective Subjective Narrative: Patient is a 38-year-old female with a past medical history of alcoholic liver failure status post liver transplant 2014, ESRD on dialysis with peritoneal dialysis catheter, hypertension, tobacco use, anxiety, hypothyroidism who is seen at the request of the hospitalist service for temporary hemodialysis catheter placement and critical care management. Today the patient is more awake and alert. She currently denies any abdominal pain. Denies any shortnessof breath, chest pain. She states that she feels like her tremor and twitching has gotten better since yesterday. She states that she has had a few loose stools today. Overall she states that she is feeling better. Exam Physical Exam Vital Signs: Temp Pulse Resp BP Pulse Ox O2 Del Method O2 Flow Rate 97.6 F 88 22 134/89 98 Room Air 6 09/10/23 10:00 09/10/23 10:09/10/23 10:09/10/23 10:09/10/23 10:09/10/23 10:00 09/08/23 19:23 Narrative: Const General: cooperative, patient's noticeable tremor has decreased and yesterday. Patient is more alert and seemingly less confused HEENT Normal oropharyngeal mucosa without any ulcers or exudates Eyes: Conjunctiva normal Pulmonary Auscultation: clear to auscultation , no crackles, no wheezes Cardiovascular Rate: normal rate Rhythm: regular rhythm Heart Sounds: S1 normal, S2 normal and no murmurs GI Inspection: non-distended Palpation: soft, not firm and nontender. No rigidity or rebound. No peritoneal signs today Deferred Neuro General: alert, awake, and oriented x 3. There is significant decrease in her tremor today. Musculoskeletal: normal range of motion, right arm is currently in a sling and immobilized. Extrem General: no cyanosis, no pedal edema bilaterally Objective Intake and Output I&O - Last 24 Hours: Intake & Output 09/09/23 09/10/23 09/10/23 23:59 07:59 15:59 Intake Total 600 / 780 120 / 120 Output Total 2630 / 2630 Balance -2030 / -1850 120 / 120 Weight 65.6 kg Labs 09/10/23 04:24 09/10/23 04:24 Microbiology Micro: Microbiology 3 09/08/23 10:33 Blood Culture - Preliminary Blood - Left Antecubital No Growth 2 Days 09/08/23 18:57 Catheter Tip Culture - Final Catheter Tip No Growth 2 Days 09/08/23 10:07 Blood Culture - Preliminary Blood - Left Arm Assessment/Plan Assessment/Plan (1) Sepsis: (2) Alcohol abuse: (3) Hyponatremia: (4) Metabolic encephalopathy: Plan Hospital day #1 the patient who presents for critical care management of concerns of acute metabolic encephalopathy and sepsis. Blood cultures to rule out sepsis have shown no growth today is a preliminary result Patient is being empirically treated with vancomycin and Zosyn. Nephrology is following for dialysis management. Patient's right femoral temporary hemodialysis catheter is in place and has beenfunctioning. She will need to have a tunneled catheter placed prior to discharge. Patient has been on her lactulose, and has had 3-4 loose stools each day, this morning she has had for 5. Patient does have some signs of anemia of chronic disease secondary to kidney disease, her H&H today is stable and has no need for further transfusion at thispoint Patient's not showing any signs of colitis today. Continue with her antirejection medications for liver transplant. Patient had a TSH that was within normal limits today Patient CK has been trending downward There are no plans for hemodialysis today. Vital signs demonstrate that she is no longer tachycardic and that her blood pressure has been stable Continue to monitor her mental status Patient is on SCDs for DVT prophylaxis Documented By: Larry Peters MD 1100 Signed By: <Electronically signed by Larry Peters MD> 09/10/23 1142 [facility] Work Phone: [phone] 102-405604-17-2024 Consult note Author Larry Peters [facility] September 10, 2023 11:57am Note Date/Time September 10, 2023 11: 24am [facility] [address] [place] [address] Pulmonology Consult Note Signed with Addenda Patient: Winnie Cai MR#: [id number] : 1985 Acct:[id number] Age/Sex: 38 / F Adm Date: 4 Loc: Room: [address] [place] [address] Type: ADM IN Attending Dr: Tani Meehan MD Copies to: NON STAFF MD Larry Washington MD~ ADDENDUM1 CT 50 minutes Addendum Documented By: Larry Peters MD 09/10/23 1157 Addendum Signed By: <Electronically signed by Larry Peters MD> 09/10/23 1157 HPI Date/Time of Consultation: Date of Service: 09/09/2023 Time of Service: 11:21 Consulting Provider: Larry Bridges Requesting Provider: Hortensia Cordero Reason for Consult: Critical care management History of Present Illness History of present illness: Ms. Cai is a 38 year old female with a past medical history of alcoholic liverfailure status post liver transplant 2014, ESRD on dialysis with peritoneal dialysis catheter, hypertension, tobacco use, anxiety, hypothyroidism who is seen at the request of the hospitalist service for temporary hemodialysis catheter placement and critical care management. Patient was seen in the emergency room after feeling like she was dehydrated. The patient had a recent right humerus fracture that occurred about a week ago. She was unable to continue her peritoneal dialysis due to loss of use of that arm for about a week. She has a history of medication noncompliance. Patient is not able to give a good history today. Patient states that she has still been drinking, andher last drink was 2 or 3 days ago. In the emergency room she had a hemoglobin of 7.3 and white blood cell count of 40 which she was empirically started on Zosyn and vancomycin. She was found to have hyponatremia with a sodium of 117, elevated creatinine of 13.93, and severehypoglycemia at 28. She had an elevated CK. The emergency room obtained a CT of the abdomen pelvis which was concerning for colitis. She was subsequently admitted to the ICU for further management. Review of Systems Review of Systems All other systems reviewed & are negative unless noted below or in HPI [facility] Medical History Tobacco dependence Thyroid dysfunction Accelerated essential hypertension Anxiety History of shoulder fracture right History of peritoneal dialysis Family History Family/Other Legacy FamHx Problem: SISTER IS NON MEDICAL:NO CHILDREN Social History Smoking Status: Current every day smoker Tobacco Type: cigarettes Substance Use Type: Marijuana Substance Abuse Comment: Pt. smokes marijuana a couple times a day Meds Medications and Allergies Allergies fish oil Allergy (Unknown, Verified 09/08/23 09:53) Unknown Reaction Penicillins Allergy (Unknown, Verified 09/08/23 09:53) Unknown Reaction Sulfa (Sulfonamide Antibiotics) Allergy (Unknown, Verified 09/08/23 09:53) Unknown Reaction sulfamethoxazole [From Bactrim] Allergy (Verified 09/08/23 09:53) Unknown Reaction trimethoprim [From Bactrim] Allergy (Verified 09/08/23 09:53) Unknown Reaction Home Medications alprazolam 0.25 mg tablet 0.25 mg PO QHS PRN sleep 09/08/23 [History Confirmed 09/08/23] calcium acetate 667 mg tablet 667 mg PO TID 09/08/23 [History Confirmed 09/08/23] cyclosporine 100 mg capsule 75 mg PO DAILY 09/08/23 [History Confirmed 09/08/23] epoetin mariano 10,000 unit/mL injection solution (Epogen) 10,000 unit subcut .weekly 09/08/23 [History Confirmed 09/08/23] escitalopram oxalate 5 mg tablet (Lexapro) 15 mg PO DAILY 09/08/23 [History Confirmed 09/08/23] gentamicin 0.1 % topical cream 1 applic topical DAILY 09/08/23 [History Confirmed 09/08/23] levothyroxine 75 mcg capsule 75 mcg PO DAILY 09/08/23 [History Confirmed 09/08/23] losartan 50 mg tablet 50 mg PO QHS 09/08/23 [History Confirmed 09/08/23] magnesium glycinate 100 mg tablet (Mag Glycinate) 100 mg PO BID 09/08/23 [History Confirmed 09/08/23] metoprolol succinate 50 mg tablet,extended release 24 hr 50 mg PO QHS 09/08/23 [History Confirmed 09/08/23] mycophenolate sodium 360 mg tablet,delayed release (Myfortic) 720 mg PO DAILY 09/08/23 [History Confirmed 09/08/23] omeprazole 20 mg capsule,delayed release 20 mg PO DAILY 09/08/23 [History Confirmed 09/08/23] orphenadrine citrate 100 mg tablet,extended release 100 mg PO BID 09/08/23 [History Confirmed 09/08/23] oxycodone-acetaminophen 5 mg-325 mg tablet 1 tab PO Q4HR PRN pain 09/08/23 [History Confirmed 09/08/23] potassium chloride 20 mEq tablet,extended release 20 meq PO DAILY 09/08/23 [History Confirmed 09/08/23] protein supplement 1 ea PO .three times a week 09/08/23 [History Confirmed 09/08/23] Exam Physical Exam Vital Signs: Temp Pulse Resp BP Pulse Ox O2 Del Method O2 Flow Rate 97.6 F 88 22 134/89 98 Room Air 6 09/10/23 10:00 09/10/23 10:00 09/10/23 10:00 09/10/23 10:00 09/10/23 10:00 09/10/23 10:00 09/08/23 19:23 Narrative: Const General: cooperative, patient has a noticeable tremor. Patient is struggling totalk and seems confused. HEENT Normal oropharyngeal mucosa without any ulcers or exudates Eyes: Conjunctiva normal Pulmonary Auscultation: clear to auscultation , no crackles, no wheezes Cardiovascular Rate: normal rate Rhythm: regular rhythm Heart Sounds: S1 normal, S2 normal and no murmurs GI Inspection: non-distended Palpation: soft, not firm and nontender. No rigidity or rebound. Deferred Neuro General: alert, awake. Patient is confused. Musculoskeletal: normal range of motion, right arm is currently in a sling and immobilized. Extrem General: no cyanosis, no pedal edema bilaterally Results - Pulmonology Intake and Output I&O - Last 24 Hours: Intake & Output 09/09/23 09/10/23 09/10/23 23:59 07:59 15:59 Intake Total 600 / 780 120 / 120 Output Total 2630 / 2630 Balance -2030 / -1850 120 / 120 Weight 65.6 kg Labs 09/10/23 04:24 09/10/23 04:24 Microbiology Micro: 09/08/23 10:33 Blood Culture - Preliminary Blood - Left Antecubital No Growth 2 Days 09/08/23 18:57 Catheter Tip Culture - Final Catheter Tip No Growth 2 Days 09/08/23 10:07 Blood Culture - Preliminary Blood - Left Arm Assessment/Plan (1) Sepsis: (2) Alcohol abuse: (3) Metabolic encephalopathy: (4) Hyponatremia: Plan Hospital day #0 the patient who presents for critical care management of concerns of acute metabolic encephalopathy and sepsis. This patient has a multiple problems that need to be addressed Patient had a malfunctioning peritoneal dialysis catheter that was removed by general surgery. Fluid cultures on the peritoneal dialysis catheter have been sent for culture. Her white blood cell count has been decreasing since the removal of the catheter yesterday. Blood cultures to rule out sepsis have been sent and are pending. Patient is being empirically treated with vancomycin and Zosyn. Patient has not had dialysis in the past 5 or 6 days. Nephrology is following for dialysis management. Nephrology has requested that a temporary hemodialysis catheter will be placed, consent will be obtained and this will be performed today. Will obtain a KUB status post insertion. There was some concern for hepatic encephalopathy, patient was started on lactulose per the hospitalist team, GI has been consulted for this Patient does have some signs of anemia of chronic disease secondary to kidney disease, her H&H did drop and was 6.2/19.4 which she received 1 unit of PRBC Per general surgery patient is not showing any signs of colitis. Today she continues to deny any diarrhea or abdominal pain. Patient is currently on mycophenolate and cyclosporine for her liver transplant,will continue that. She received hemodialysis after the catheter placement. Vital signs have been stable Continue to monitor her mental status Patient is on SCDs for DVT prophylaxis This is a 38-year-old female patient with significant past medical nonmedical compliance, alcohol abuse, end-stage renal disease on peritoneal dialysis, history for liver transplant supposed to be taking mycophenolate and cyclosporine admitted with diagnosis of acute metabolic encephalopathy, sepsis/source of infection abdomen, possible peritonitis and peritoneal dialysismalfunction, alcohol intoxication and right humerus fracture. Sepsis/abdominal source Concerning for peritonitis Peritoneal dialysis catheter malfunction status post removal Acute metabolic encephalopathy/multifactorial/uremia/hyponatremia/alcohol End-stage renal disease on peritoneal dialysis Severe hyponatremia High anion gap metabolic acidosis Status post liver transplant with poor compliance with antirejection medication Rhabdomyolysis Right humerus fracture/no signs of compartment syndrome Normocytic/normochromic anemia Neurochecks per ICU protocol Avoid sedatives CIWA protocol Avoid hypotonic solutions Hemodialysis catheter placed Will be started on hemodialysis Maintain oxygen saturation higher than 94% She is currently on room air with good oxygen saturation MAP>65 Not requiring vasopressors Continue current broad-spectrum antibiotics Follow-up cultures Started on cyclosporine p.o. GI and Nephrology following Maintain hemoglobin higher than 7 No need for blood transfusion DVT and GI prophylaxis CCT:50 minutes Documented By: Larry Peters MD 1121 Signed By: <Electronically signed by Larry Peters MD> 09/10/23 1142 [facility] Work Phone: [phone] 428-201504-17-2024 Progress note Author [facility] September 10, 2023 11:48am Note Date/Time September 10, 2023 11: 48am [facility] [address] [place] [address] Nephrology Progress Note Signed Patient: Winnie Cai MR#: [id number] : 1985 Acct:[id number] Age/Sex: 38 / F Adm Date: 4 Loc: 4P Room: 6H6503-4 Type: ADM IN Attending Dr: Tani Meehan MD Copies to: ~ Date of Service: 09/10/2023 Subjective Subjective Narrative: Ms. 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 PD was started at [place] however he moved to [place] closer to her home. She has a history of liver transplant due to alcoholic liver cirrhosis at [facility] 2014. She did require hemodialysis in the perioperative period and later on was transitioned to PD. Patient has been noncompliant with peritoneal dialysis and missing multiple treatments at home per her records. Patient was brought to the ER on 09/07 as she has been significantly weak and dehydrated. Patient sustained a fall after she tripped last week and went to [facility] ER but she was found to have fracture of the right head of humerus. Right hand currently in sling dressing she is supposed to see orthopedics as outpatient. Patient was not able to do peritoneal dialysis at home since she has limited mobility of the right arm. Patient reported that she has not been eating or drinking over the last few days. Evaluation in the ER showed large hematoma around the shoulder and the chest. She was tachycardic 111 however blood pressure 115/73. No fever or chills. WBCs count was found to be [id number]. Patient was started empirically on vancomycin and Zosyn after 2 sets ofblood culture was obtained. Hemoglobin was low 7.3 compared to 10 g/dL on . She has mildly elevated INR 1.4 despite she is not on any blood thinners medication. There is a report by nursing staff that patient still drinking vodka however it does not confirm. Ethyl alcohol level on admission was less than 10 mg/dL. Interval history: Patient had temporary hemodialysis catheter yesterday and she was switched to HDfrom PD since her PD catheter was broken and she was not able to do PD at home because of right arm fracture. Patient did tolerate dialysis well. Lab has markedly improved with creatinine down to 5.93, BUN 29 and sodium up to 128. Patient is more alert however still confused. She is on CIWA scale for alcohol level. Exam Physical Exam Vital Signs: Temp Pulse Resp BP Pulse Ox O2 Del Method O2 Flow Rate 36.4 C 88 22 134/89 98 Room Air 6 09/10/23 10:00 09/10/23 10:00 09/10/23 10:00 09/10/23 10:00 09/10/23 10:00 09/10/23 10:00 09/08/23 19:23 Narrative: Constitutional: Patient is more awake today however she looks ill and older thanher stated age. HEENT: She has significant pallor. No jaundice or cyanosis. Mucous membranes are dry. Cardiovascular: RRR, tachycardic, normal S1-S2, no gallop or rub, No JVD Respiratory: Good bilateral air entry no wheezing or crackles Gastrointestinal: Soft, non tender, positive bowel sounds. PD catheter exit site on the left lower quadrant with surrounding erythema. The catheter itself is broken with no transfer set. Catheter tip covered with tape not even a clamp. Extremities: No edema Skin: Large hematoma over the right arm extending to the chest Musculoskeletal: No joints swellings or inflammation Neurology: Awake, however she is more confused today. She is able to respond toquestions however she has difficulty finding words. She has mild tremors. Psych: Normal mood and affect Objective Intake and Output I&O: Intake & Output 09/07/23 09/08/23 09/09/23 09/10/23 23:59 23:59 23:59 23:59 Intake Total 1870 / 1870 780 / 780 120 / 120 Output Total 2630 / 2630 Balance 1870 / 1870 -1850 / -1850 120 / 120 Weight 65.4 kg 67.2 kg 65.6 kg Meds and Allergies Meds: Active Medications Calcium Acetate (Calcium Acetate 667 Mg Capsule) 667 mg PO TID.WITH.MEALS [facility] Stop: 09/08/24 11:59 Last Admin: 09/10/23 08:37 Dose: 667 mg Clotrimazole (Clotrimazole Alba 10 Mg) 10 mg MUCOUS MEM 5XDAILY SERENA Stop: 09/08/24 17:59 Last Admin: 09/10/23 10:26 Dose: 10 mg Cyclosporine (Cyclosporine Modified 25 Mg Capsule) 75 mg PO DAILY SERENA Stop: 09/08/24 11:29 Last Admin: 09/10/23 08:38 Dose: 75 mg Dextrose (Dextrose 50% In Water 25 Gm/50 Ml Syringe) 0 gm IV-PUSH PRN PRN PRN Reason: Hypoglycemia Stop: 09/07/24 17:35 Last Admin: 09/08/23 18:00 Dose: 25 gm Escitalopram Oxalate (Escitalopram 5 Mg Tablet) 15 mg PO DAILY SERENA Stop: 09/08/24 11:29 Last Admin: 09/10/23 08:37 Dose: 15 mg Folic Acid (Folic Acid 1 Mg Tablet) 1 mg PO DAILY SERENA Stop: 09/08/24 08:59 Last Admin: 09/10/23 08:46 Dose: 1 mg Ertapenem 0.5 gm/ Sodium (Chloride) 100 mls @ 200 mls/hr IV Q24H SERENA Stop: 09/07/24 20:59 Last Admin: 09/09/23 22:25 Dose: 200 mls/hr Sodium Chloride (0.9% Sodium Chloride 1,000 Ml) 1,000 mls @ 0 mls/hr MISCELLANE.Q0M PRN PRN Reason: Dialysis Stop: 09/08/24 09:07 Last Infusion: 09/09/23 16:13 Dose: Infused Lactulose (Lactulose 20 Gm/30 Ml Udc) 20 gm PO TID SERENA Stop: 09/08/24 08:59 Last Admin: 09/10/23 09:26 Dose: Not Given Levothyroxine Sodium (Levothyroxine 75 Mcg Tablet) 75 mcg PO DAILY@0630 SERENA Stop: 09/08/24 10:59 Last Admin: 09/10/23 06:01 Dose: 75 mcg Lorazepam (Lorazepam 1 Mg Tablet) 0 mg PO PROTOCOL PRN; Protocol PRN Reason: Alcohol Withdrawal Stop: 03/06/24 19:04 Lorazepam (Lorazepam 2 Mg/Ml Vial) 0 mg IV-PUSH PROTOCOL PRN; Protocol PRN Reason: Alcohol Withdrawal Stop: 03/06/24 19:04 Magnesium Oxide (Magnesium Oxide 400 Mg Tablet) 200 mg PO DAILY SERENA Stop: 09/09/24 08:59 Last Admin: 09/10/23 08:46 Dose: 200 mg Metoprolol Succinate (Metoprolol Succinate 50 Mg Tab.Er.24h) 50 mg PO QHS SERENA Stop: 09/07/24 21:59 Last Admin: 09/09/23 23:54 Dose: Not Given Morphine Sulfate (Morphine Sulfate 2 Mg/Ml Vial) 2 mg IV-PUSH Q4H PRN PRN Reason: Pain Scale 7 - 10 Last Admin: 09/10/23 06:31 Dose: 2 mg Multivitamins (Multivitamin 1 Tab Tablet) 1 tab PO DAILY SERENA Stop: 09/08/24 08:59 Last Admin: 09/10/23 08:44 Dose: 1 tab Mycophenolate Sodium (Mycophenolate Sodium 180 Mg Tablet. *Nf*) 720 mg PO DAILY [facility] Stop: 09/08/24 11:29 Last Admin: 09/10/23 08:59 Dose: 720 mg Ondansetron HCl (Ondansetron 4 Mg/2 Ml Vial) 4 mg IV-PUSH Q6H PRN PRN Reason: Nausea And Vomiting Stop: 09/07/24 15:48 Oxycodone/Acetaminophen (Oxycodone/Acetaminophen 5-325 Mg Tablet) 1 tab PO [id number] PRN Reason: pain Last Admin: 09/10/23 10:26 Dose: 1 tab Pantoprazole Sodium (Pantoprazole 40 Mg Vial) 40 mg IV-PUSH DAILY [facility] Stop: 09/08/24 08:59 Last Admin: 09/10/23 08:55 Dose: 40 mg Potassium Chloride (Potassium Chloride Er 20 Meq Tab.Er.Prt) 40 meq PO DAILY PRN PRN Reason: Hypokalemia Stop: 09/07/24 15:48 Sodium Bicarbonate (Sodium Bicarbonate 650 Mg Tablet) 1,300 mg PO TID [facility] Stop: 09/07/24 21:14 Last Admin: 09/10/23 08:47 Dose: 1,300 mg Sodium Chloride (Sodium Chloride 0.9 % 10 Ml Syringe) 0 ml IV-PUSH PRN PRN PRN Reason: Flush Stop: 09/07/24 09:51 Last Admin: 09/10/23 06:32 Dose: 10 ml Sodium Chloride (Sodium Chloride 0.9 % 10 Ml Vial.Pf) 10 ml INJECTION DAILY SERENA Stop: 09/08/24 08:59 Last Admin: 09/10/23 08:56 Dose: 10 ml Sodium Chloride (Sodium Chloride 0.9 % 10 Ml Syringe) 10 ml IV-PUSH PRN PRN PRN Reason: Flush Stop: 09/07/24 15:47 Sodium Chloride (Sodium Chloride 0.9 % 10 Ml Vial.Pf) 0 ml IV PRN PRN PRN Reason: ATIVAN DILUTION Stop: 09/07/24 19:07 Sodium Chloride (Sodium Chloride 0.9 % 10 Ml Syringe) 0 ml IV-PUSH PRN PRN PRN Reason: Flush Stop: 09/08/24 09:07 Thiamine HCl (Thiamine 100 Mg Tablet) 100 mg PO BID SERENA Stop: 09/07/24 20:59 Last Admin: 09/10/23 08:44 Dose: 100 mg Vancomycin HCl (Vancomycin - Pharmacy Dosing 1 Each Miscell) 1 each IV ONCE PRN; Protocol PRN Reason: ZZ.Pharmacy Consult Allergies fish oil Allergy (Unknown, Verified 09/08/23 09:53) Unknown Reaction Penicillins Allergy (Unknown, Verified 09/08/23 09:53) Unknown Reaction Sulfa (Sulfonamide Antibiotics) Allergy (Unknown, Verified 09/08/23 09:53) Unknown Reaction sulfamethoxazole [From Bactrim] Allergy (Verified 09/08/23 09:53) Unknown Reaction trimethoprim [From Bactrim] Allergy (Verified 09/08/23 09:53) Unknown Reaction Results - Nephrology Labs 09/10/23 04:24 09/10/23 04:24 Labs: 09/10/23 04:24 BUN 29 H D Creatinine 5.93 H D Phosphorus 4.8 H Albumin 2.2 L Radiology Impressions Impressions - last 24 hours: Impressions KUB X-Ray 09/09/23 12:00 IMPRESSION: RIGHT-SIDED FEMORAL LINE TIP LIKELY IN THE DISTAL IVC. GASEOUS DISTENTION INVOLVING SMALL BOWEL AND COLON POSSIBLY RELATING TO ILEUS. FOLLOW-UP IS SUGGESTED. Impression dictated by: Mariana Canas Jr.OLenore09/09/2023 12:22 PM Dictation Location: [place] [address] Any impression(s) listed above is documentation that was entered by the reading physician into a diagnostic report(s) for Winnie Cai. I have reviewed the report(s) and am incorporating any findings in the treatment plan of this patient where applicable. 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 Patient had REED at the time of liver transplant as well and she did require short period of hemodialysis. Patient is back on dialysis since 05/04/2021. She was switched to IHD from PD on 09/07 after she fell and fractured her right arm. Patient has not been compliant with PD at home as well. (2) History of peritoneal dialysis: Assessment/Problem Details: * PD catheter was removed on 09/07 as it was broken and not usable. Patient also not able to do PD related to right arm fracture. * PD catheter tip culture still negative x 1 day (3) Leucocytosis: Assessment/Problem Details: Patient has leukocytosis 30,000 with broken PD catheter and evidence of PD catheter exit site erythema. Possibility of peritonitis cannot be excluded however patient does not have PD fluid in the abdomen to drain for testing. PD catheter was broken and cannot be used for manual exchange * CT scan of the abdomen suggestive of colitis. Patient on ertapenem and vancomycin pending the result of blood culture * Blood culture and catheter tip cultures is negative so far (4) Anemia of renal disease: Assessment/Problem Details: Patient has significant drop of hemoglobin over the last week after fall and right humerus fracture. She has large hematoma over the right arm and chest. INR also mildly elevated. Last hemoglobin was 10 g/dL on August 19 * Hemoglobin did drop down to 6.2 g/dL on 09/07 with no evidence of active bleeding. Patient had 1 unit of packed RBCs * Iron stores and B12 are adequate however folic acid is low 5.7. Patient was started on oral folic acid 1 mg daily on 09/07. * Subcu Epogen will be switched to Mircera as outpatient (5) Rhabdomyolysis: Assessment/Problem Details: Patient has elevated CPK with mild rhabdomyolysis s/p fall. CPK is trending down (6) History of shoulder fracture: Assessment/Problem Details: Patient has right humerus fracture s/p fall after she tripped at home. (7) Liver transplant status: Assessment/Problem Details: Patient status post liver transplant at [facility] on October 2014. She has mild elevated AST however ALT and bilirubin are normal. There is question that the patient still drinking vodka however is not confirmed. INR is elevated. Plan * Patient had hemodialysis yesterday for 3 and half hour. No hyperkalemia, acidosis or volume overload. Next hemodialysis will be tomorrow. * Patient still has temporary femoral hemodialysis catheter. Tunneled hemodialysis catheter will be arranged before discharge after ensuring that blood cultures are negative. * Continue ertapenem and vancomycin. GI and surgery input are appreciated. Patient has questionable colitis. WBCs count is improving. It is not clear if she has peritonitis as well as or not able to collect PD fluid. * Continue current transplant medications including mycophenolate 750 mg p.o. daily and cyclosporine 75 mg p.o. daily. Importance of compliance with medications and dialysis has been addressed. GI input is appreciated * Monitor daily intake and output, renal panel and CBC to adjust medications, dialysis prescription and blood transfusion as indicated. Documented By: Tima Lara MD 09/10/23 1137 Signed By: <Electronically signed by MD Tima Lara> 09/10/23 1148 [facility] Work Phone: [phone] Progress note Author Hortensia Cordero [facility] September 10, 2023 12:42am Note Date/Time September 09, 2023 4:[address] 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 initial lactic acid level was not elevated up. There is no sign of clear infection. Leukocytosis could be due to dehydration. Given her PD cathetermalfunction PD cath infection can?t be ruled out The patient received IVF in the ED. Then she was reevaluated after IVF within 6 hours: the Capillary refill is more than 3 seconds, Pulses present bilaterally and Skin normal for ethnicity. repeat lactate level was done Blood Cx remain negative Catheter Tip Cx remain negative she was started empirically on broad spectrum IV antibiotics with Invanz (PNC allergy) and Vancomycin IV c/w broad spectrum IV Rule out Acute on Chronic Anemia Chronic Anemia of CKD Hg down to 6.2 with hydration she was transfused one unit of blood. no overt bleeding Hg improved to 7.5 Hg of the presentation 7.3. No recent Hg to compare. no overt bleeding. she follow up for anemia with [facility] PLT > 50 INR 1.4 (vitamin K oral started) B12 up to 3900 Folate low ferritin 874 , Transferrin is low , Reticulocyte count Transfuse as needed GI recommendation appreciated PPI to IV ESRD PD cath dysfunction hyponatremia Nephrology was consulted for the management of dialysis and ESRD complication, recommendation appreciated. PD cath removed by General surgery and HD catheter placed by pulmonary . on HD pulmonary/General surgery recommendation appreciated. Rhabdomyolysis CK up to 4600 on admission She was given IVF. CK is better Liver transplant Possible hepatic encephalopathy Ammonia 55 family said she may be she has not been taking her antirejection mediation ct brain shows no acute intracranial process restart home medication lactulose GI recommendation appreciated Elevated Troponin Mild non singing cat . she denied any chest pain . no EKG changes Recent right traumatic proximal humerus fracture XR shoulder at [facility] 09/01/2023 reported : Acute comminuted fracture of the surgical neck of the right proximal humerus demonstrating approximately 1 cm anteromedial displacement and slight impaction.Suspect nondisplaced fracture extension into the greater tuberosity. Approximately 1 cm linear density adjacent to the greater tuberosity of the humeral head suspicious for acute fracture fragment. Differential includes calcium hydroxyapatite deposition and calcific tendinosis of the right rotator Cuff. The patient was treated conservatively at [facility] ER c/w immobilization outpatient follow up Pain control Suspected EtOH Abuse Disorder/withdrawal she still confused per family, she is AOx3 there is conflicting information about her drinking habit. the family doesn't know if she drink at home. the patient has vague answer about the last time she had a drink . she reported to RN on admission that she still drink. Blood alcohol concentration is not detected [facility] protocol Multivitamin/folic acid/Thiamine Symptom control and supportive care in the ICU Sore throat/Possible Candidiasis local antifungal treatment INTERVAL HPI: As Above, Pt resting in bed. she is not feeling better. Denies anychest pain, SOB. she still repot sore throat and pain all over. on HD Chronic diseases: Unless mentioned Above, Essential home medications have been continued. DVT Px: SCD Disposition: To be determined Plan of care Discussed with: the medical team, the patient L Exam Physical Exam Vital Signs: Temp Pulse Resp BP Pulse Ox O2 Del Method O2 Flow Rate 36.5 C 120 H 20 106/74 99 Room Air 6 09/09/23 12:00 09/09/23 16:30 09/09/23 14:05 09/09/23 16:30 09/09/23 14:05 09/09/23 14:05 09/08/23 19:23 Narrative: GEN: Pleasant, Cooperative, Not in acute distress. NECK: Supple, ? JVD, ? LAD ENT: there is white spot covering of the tongue LUNGS: CTA. CV: S1S2 nl, ? M/R/G ABD: Soft, ND, NT, + BS, ? HSM EXT: No edema in LE bilaterally, right arm in sling, no calf muscle tenderness. NEURO: ? FND, PSYCH: flat affect, she has slow answering question but she is AOx3 Objective Lab Results 09/09/23 04:35 09/09/23 04:35 Microbiology Results Microbiology 09/08/23 18:57 Catheter Tip Catheter Tip Culture - Preliminary No Growth 1 Day 09/08/23 10:33 Blood - Left Antecubital Blood Culture - Preliminary No Growth 1 Day 09/08/23 10:07 Blood - Left Arm Blood Culture - Preliminary Meds Allergies and Active Meds Allergies fish oil Allergy (Unknown, Verified 09/08/23 09:53) Unknown Reaction Penicillins Allergy (Unknown, Verified 09/08/23 09:53) Unknown Reaction Sulfa (Sulfonamide Antibiotics) Allergy (Unknown, Verified 09/08/23 09:53) Unknown Reaction sulfamethoxazole [From Bactrim] Allergy (Verified 09/08/23 09:53) Unknown Reaction trimethoprim [From Bactrim] Allergy (Verified 09/08/23 09:53) Unknown Reaction Active Meds: Active Medications Generic Name Dose Route Start Last Admin Trade Name Freq PRN Reason Stop Dose Admin Calcium Acetate 667 mg 09/09/23 12:00 Calcium Acetate 667 Mg Capsule PO 09/08/24 11:59 TID.WITH.MEALS SERENA Cyclosporine 75 mg 09/09/23 11:30 Cyclosporine Modified 25 Mg Capsule PO 09/08/24 11:29 DAILY SERENA Dextrose 0 gm 09/08/23 17:36 09/08/23 18:00 Dextrose 50% In Water 25 Gm/50 Ml Syringe IV-PUSH 09/07/24 17:35 25 gm PRN PRN Administration Hypoglycemia Escitalopram Oxalate 15 mg 09/09/23 11:30 Escitalopram 5 Mg Tablet PO 09/08/24 11:29 DAILY SERENA Folic Acid 1 mg 09/09/23 09:00 09/09/23 08:13 Folic Acid 1 Mg Tablet PO 09/08/24 08:59 1 mg DAILY SERENA Administration Ertapenem 0.5 gm/ Sodium 100 mls @ 200 mls/hr 09/08/23 21:00 09/08/23 22:17 Chloride IV 09/07/24 20:59 200 mls/hr Q24H SERENA Administration Sodium Chloride 500 mls @ 20 mls/hr 09/08/23 23:38 0.9 % Sodium Chloride IV 09/09/23 23:37 PROTOCOL PRN BLOOD TRANSFUSION Sodium Chloride 1,000 mls @ 0 mls/hr 09/09/23 09:08 09/09/23 16:13 0.9% Sodium Chloride 1,000 Ml MISCELLANE 09/08/24 09:07 Infused .Q0M PRN Infusion Dialysis As Directed Lactulose 20 gm 09/09/23 09:00 09/09/23 08:17 Lactulose 20 Gm/30 Ml Udc PO 09/08/24 08:59 20 gm TID SERENA Administration Levothyroxine Sodium 75 mcg 09/09/23 11:00 Levothyroxine 75 Mcg Tablet PO 09/08/24 10:59 DAILY@0630 SERENA Lorazepam 0 mg 09/08/23 19:05 Lorazepam 1 Mg Tablet PO 03/06/24 19:04 PROTOCOL PRN Alcohol Withdrawal Protocol Lorazepam 0 mg 09/08/23 19:05 Lorazepam 2 Mg/Ml Vial IV-PUSH 03/06/24 19:04 PROTOCOL PRN Alcohol Withdrawal Protocol Magnesium Oxide 200 mg 09/10/23 09:00 Magnesium Oxide 400 Mg Tablet PO 09/09/24 08:59 DAILY SERENA Metoprolol Succinate 50 mg 09/08/23 22:00 Metoprolol Succinate 50 Mg Tab.Er.24h PO 09/07/24 21:59 QHS SERENA Morphine Sulfate 2 mg 09/08/23 15:49 09/09/23 16:18 Morphine Sulfate 2 Mg/Ml Vial IV-PUSH 2 mg Q4H PRN Administration Pain Scale 7 - 10 Multivitamins 1 tab 09/09/23 09:00 09/09/23 08:13 Multivitamin 1 Tab Tablet PO 09/08/24 08:59 1 tab DAILY SERENA Administration Mycophenolate Sodium 720 mg 09/09/23 11:30 Mycophenolate Sodium 180 Mg Tablet. *Nf* PO 09/08/24 11:29 DAILY SERENA Non-Formulary Medication 10,000 unit 09/08/23 15:45 Epoetin Mariano [Epogen] SUBCUT 09/07/24 15:44 .weekly SERENA Ondansetron HCl 4 mg 09/08/23 15:49 Ondansetron 4 Mg/2 Ml Vial IV-PUSH 09/07/24 15:48 Q6H PRN Nausea And Vomiting Oxycodone/Acetaminophen 1 tab 09/08/23 15:44 Oxycodone/Acetaminophen 5-325 Mg Tablet PO Q4HR PRN pain Pantoprazole Sodium 40 mg 09/09/23 09:00 09/09/23 08:14 Pantoprazole 40 Mg Vial IV-PUSH 09/08/24 08:59 40 mg DAILY SERENA Administration Potassium Chloride 40 meq 09/08/23 15:49 Potassium Chloride Er 20 Meq Tab.Er.Prt PO 09/07/24 15:48 DAILY PRN Hypokalemia Sodium Bicarbonate 1,300 mg 09/08/23 21:15 09/09/23 08:13 Sodium Bicarbonate 650 Mg Tablet PO 09/07/24 21:14 1,300 mg TID SERENA Administration Sodium Chloride 0 ml 09/08/23 09:52 09/09/23 16:12 Sodium Chloride 0.9 % 10 Ml Syringe IV-PUSH 09/07/24 09:51 40 ml PRN PRN Administration Flush Sodium Chloride 10 ml 09/09/23 09:00 09/09/23 08:17 Sodium Chloride 0.9 % 10 Ml Vial.Pf INJECTION 09/08/24 08:59 10 ml DAILY SERENA Administration Sodium Chloride 10 ml 09/08/23 15:48 Sodium Chloride 0.9 % 10 Ml Syringe IV-PUSH 09/07/24 15:47 PRN PRN Flush Sodium Chloride 0 ml 09/08/23 19:08 Sodium Chloride 0.9 % 10 Ml Vial.Pf IV 09/07/24 19:07 PRN PRN ATIVAN DILUTION Sodium Chloride 0 ml 09/09/23 09:08 Sodium Chloride 0.9 % 10 Ml Syringe IV-PUSH 09/08/24 09:07 PRN PRN Flush Thiamine HCl 100 mg 09/08/23 21:00 09/09/23 08:14 Thiamine 100 Mg Tablet PO 09/07/24 20:59 100 mg BID SERENA Administration Vancomycin HCl 1 each 09/08/23 17:40 Vancomycin - Pharmacy Dosing 1 Each Miscell IV ONCE PRN ZZ.Pharmacy Consult Protocol A&P - Hospitalist Assessment/Plan (1) Peritoneal dialysis catheter mechanical complication: (2) Liver transplant status: (3) Anemia of renal disease: (4) Rhabdomyolysis: (5) Dehydration: Plan Documented By: Hortensia Cordero MD 09/09/23 1632 Signed By: <Electronically signed by Hortensia Cordero MD> 09/10/23 0042 [facility] Work Phone: [phone] 328-699304-16-2024 Progress note Author Tima Lara [facility] September 09, 2023 1:35pm Note Date/Time September 09, 2023 1:[address] [facility] [address] [place] [address] Nephrology Progress Note Signed Patient: Winnie Cai MR#: [id number] : 1985 Acct:[id number] Age/Sex: 38 / F Adm Date: 4 Loc: 4 Room: [address] [place] [address] Type: ADM IN Attending Dr: Tani Meehan MD Copies to: ~ Date of Service: 09/09/2023 Subjective Subjective Narrative: Ms. 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 PD was started at [place] however he moved to [place] closer to her home. She has a history of liver transplant due to alcoholic liver cirrhosis at [facility] 2014. She did require hemodialysis in the perioperative period and later on was transitioned to PD. Patient has been noncompliant with peritoneal dialysis and missing multiple treatments at home per her records. Patient was brought to the ER on 09/07 as she has been significantly weak and dehydrated. Patient sustained a fall after she tripped last week and went to [facility] ER but she was found to have fracture of the right head of humerus. Right hand currently in sling dressing she is supposed to see orthopedics as outpatient. Patient was not able to do peritoneal dialysis at home since she has limited mobility of the right arm. Patient reported that she has not been eating or drinking over the last few days. Evaluation in the ER showed large hematoma around the shoulder and the chest. She was tachycardic 111 however blood pressure 115/73. No fever or chills. WBCs count was found to be ,000. Patient was started empirically on vancomycin and Zosyn after 2 sets ofblood culture was obtained. Hemoglobin was low 7.3 compared to 10 g/dL on . She has mildly elevated INR 1.4 despite she is not on any blood thinners medication. There is a report by nursing staff that patient still drinking vodka however it does not confirm. Ethyl alcohol level on admission was less than 10 mg/dL. Interval history: PD catheter was removed yesterday as it was broken and not usable and the patient was not able to do PD at this time because of right humerus fracture. Hemoglobin did drop down to 6.2 g/dL with no apparent reason. Patient had 1 unit of packed RBCs transfusion with hemoglobin up to 7.5 g/dL. No obvious bleeding. Iron stores are adequate. Blood culture and catheter tip cultures are still showed no growth. WBCs count is down to 28,000 currently on ertapenem and vancomycin. Patient is awake however is mildly confused. She has mildly elevated ammonia 59however LFTs are unremarkable. Patient was evaluated by GI and no intervention is needed at this point and the patient has no raghavendra liver cirrhosis Exam Physical Exam Vital Signs: Temp Pulse Resp BP Pulse Ox O2 Del Method O2 Flow Rate 36.6 C 94 16 132/75 96 Room Air 6 09/09/23 06:00 09/09/23 06:00 09/09/23 06:00 09/09/23 06:00 09/09/23 06:00 09/09/23 08:00 09/08/23 19:23 Narrative: Constitutional: Looks ill with discomfort HEENT: She has significant pallor. No jaundice or cyanosis. Mucous membranes are dry. Cardiovascular: RRR, tachycardic, normal S1-S2, no gallop or rub, No JVD Respiratory: Good bilateral air entry no wheezing or crackles Gastrointestinal: Soft, non tender, positive bowel sounds. PD catheter exit site on the left lower quadrant with surrounding erythema. The catheter itself is broken with no transfer set. Catheter tip covered with tape not even a clamp. Extremities: No edema Skin: Large hematoma over the right arm extending to the chest Musculoskeletal: No joints swellings or inflammation Neurology: Awake, however she is more confused today. She is able to respond toquestions however she has difficulty finding words. She has mild tremors. Psych: Normal mood and affect Objective Intake and Output I&O: Intake & Output 09/06/23 09/07/23 09/08/23 09/09/23 23:59 23:59 23:59 23:59 Intake Total 1770 / 1770 120 / 120 Balance 1770 / 1770 120 / 120 Weight 65.4 kg 67.2 kg Meds and Allergies Meds: Active Medications Calcium Acetate (Calcium Acetate 667 Mg Capsule) 667 mg PO TID.WITH.MEALS SERENA Stop: 09/08/24 11:59 Cyclosporine (Cyclosporine Modified 25 Mg Capsule) 75 mg PO DAILY SERENA Stop: 09/08/24 11:29 Dextrose (Dextrose 50% In Water 25 Gm/50 Ml Syringe) 0 gm IV-PUSH PRN PRN PRN Reason: Hypoglycemia Stop: 09/07/24 17:35 Last Admin: 09/08/23 18:00 Dose: 25 gm Escitalopram Oxalate (Escitalopram 5 Mg Tablet) 15 mg PO DAILY SERENA Stop: 09/08/24 11:29 Folic Acid (Folic Acid 1 Mg Tablet) 1 mg PO DAILY SERENA Stop: 09/08/24 08:59 Last Admin: 09/09/23 08:13 Dose: 1 mg Ertapenem 0.5 gm/ Sodium (Chloride) 100 mls @ 200 mls/hr IV Q24H SERENA Stop: 09/07/24 20:59 Last Admin: 09/08/23 22:17 Dose: 200 mls/hr Sodium Chloride (0.9 % Sodium Chloride) 500 mls @ 20 mls/hr IV PROTOCOL PRN PRN Reason: BLOOD TRANSFUSION Stop: 09/09/23 23:37 Sodium Chloride (0.9% Sodium Chloride 1,000 Ml) 1,000 mls @ 0 mls/hr MISCELLANE.Q0M PRN PRN Reason: Dialysis Stop: 09/08/24 09:07 Lactulose (Lactulose 20 Gm/30 Ml Udc) 20 gm PO TID SERENA Stop: 09/08/24 08:59 Last Admin: 09/09/23 08:17 Dose: 20 gm Levothyroxine Sodium (Levothyroxine 75 Mcg Tablet) 75 mcg PO DAILY@0630 [facility] Stop: 09/08/24 10:59 Lorazepam (Lorazepam 1 Mg Tablet) 0 mg PO PROTOCOL PRN; Protocol PRN Reason: Alcohol Withdrawal Stop: 03/06/24 19:04 Lorazepam (Lorazepam 2 Mg/Ml Vial) 0 mg IV-PUSH PROTOCOL PRN; Protocol PRN Reason: Alcohol Withdrawal Stop: 03/06/24 19:04 Magnesium Oxide (Magnesium Oxide 400 Mg Tablet) 200 mg PO DAILY SERENA Stop: 09/09/24 08:59 Metoprolol Succinate (Metoprolol Succinate 50 Mg Tab.Er.24h) 50 mg PO QHS SERENA Stop: 09/07/24 21:59 Morphine Sulfate (Morphine Sulfate 2 Mg/Ml Vial) 2 mg IV-PUSH Q4H PRN PRN Reason: Pain Scale 7 - 10 Multivitamins (Multivitamin 1 Tab Tablet) 1 tab PO DAILY SERENA Stop: 09/08/24 08:59 Last Admin: 09/09/23 08:13 Dose: 1 tab Mycophenolate Sodium (Mycophenolate Sodium 180 Mg Tablet. *Nf*) 720 mg PO DAILY [facility] Stop: 09/08/24 11:29 Non-Formulary Medication (Epoetin Mariano [Epogen]) 10,000 unit SUBCUT .weekly SERENA Stop: 09/07/24 15:44 Ondansetron HCl (Ondansetron 4 Mg/2 Ml Vial) 4 mg IV-PUSH Q6H PRN PRN Reason: Nausea And Vomiting Stop: 09/07/24 15:48 Oxycodone/Acetaminophen (Oxycodone/Acetaminophen 5-325 Mg Tablet) 1 tab PO Q4HR PRN PRN Reason: pain Pantoprazole Sodium (Pantoprazole 40 Mg Vial) 40 mg IV-PUSH DAILY SERENA Stop: 09/08/24 08:59 Last Admin: 09/09/23 08:14 Dose: 40 mg Potassium Chloride (Potassium Chloride Er 20 Meq Tab.Er.Prt) 40 meq PO DAILY PRN PRN Reason: Hypokalemia Stop: 09/07/24 15:48 Sodium Bicarbonate (Sodium Bicarbonate 650 Mg Tablet) 1,300 mg PO TID SERENA Stop: 09/07/24 21:14 Last Admin: 09/09/23 08:13 Dose: 1,300 mg Sodium Chloride (Sodium Chloride 0.9 % 10 Ml Syringe) 0 ml IV-PUSH PRN PRN PRN Reason: Flush Stop: 09/07/24 09:51 Last Admin: 09/08/23 10:37 Dose: 10 ml Sodium Chloride (Sodium Chloride 0.9 % 10 Ml Vial.Pf) 10 ml INJECTION DAILY SERENA Stop: 09/08/24 08:59 Last Admin: 09/09/23 08:17 Dose: 10 ml Sodium Chloride (Sodium Chloride 0.9 % 10 Ml Syringe) 10 ml IV-PUSH PRN PRN PRN Reason: Flush Stop: 09/07/24 15:47 Sodium Chloride (Sodium Chloride 0.9 % 10 Ml Vial.Pf) 0 ml IV PRN PRN PRN Reason: ATIVAN DILUTION Stop: 09/07/24 19:07 Sodium Chloride (Sodium Chloride 0.9 % 10 Ml Syringe) 0 ml IV-PUSH PRN PRN PRN Reason: Flush Stop: 09/08/24 09:07 Thiamine HCl (Thiamine 100 Mg Tablet) 100 mg PO BID SERENA Stop: 09/07/24 20:59 Last Admin: 09/09/23 08:14 Dose: 100 mg Vancomycin HCl (Vancomycin - Pharmacy Dosing 1 Each Miscell) 1 each IV ONCE PRN; Protocol PRN Reason: ZZ.Pharmacy Consult Allergies fish oil Allergy (Unknown, Verified 09/08/23 09:53) Unknown Reaction Penicillins Allergy (Unknown, Verified 09/08/23 09:53) Unknown Reaction Sulfa (Sulfonamide Antibiotics) Allergy (Unknown, Verified 09/08/23 09:53) Unknown Reaction sulfamethoxazole [From Bactrim] Allergy (Verified 09/08/23 09:53) Unknown Reaction trimethoprim [From Bactrim] Allergy (Verified 09/08/23 09:53) Unknown Reaction Results - Nephrology Labs 09/09/23 04:35 09/09/23 04:35 Labs: 09/08/23 09/08/23 09/08/23 16:11 16:11 16:11 BUN 65 H Creatinine 12.64 H D Iron Saturation TNP Cancelled Ferritin 874.4 H Cancelled Albumin 09/09/23 04:35 BUN 69 H Creatinine 12.77 H Iron Saturation Ferritin Albumin 2.2 L Radiology Impressions Impressions - last 24 hours: Impressions KUB X-Ray 09/09/23 12:00 IMPRESSION: RIGHT-SIDED FEMORAL LINE TIP LIKELY IN THE DISTAL IVC. GASEOUS DISTENTION INVOLVING SMALL BOWEL AND COLON POSSIBLY RELATING TO ILEUS. FOLLOW-UP IS SUGGESTED. Impression dictated by: Emeka Gardner Jr., D.O.09/09/2023 12:22 PM Dictation Location: [place] [address] Any impression(s) listed above is documentation that was entered by the reading physician into a diagnostic report(s) for Winnie Cai. I have reviewed the report(s) and am incorporating any findings in the treatment plan of this patient where applicable. A&P - Nephrology Assessment/Plan (1) History of peritoneal dialysis: Assessment/Problem Details: Patient has ESRD possibly related to combination of hepatorenal syndrome and cyclosporine toxicity. Patient had REED at the time of liver transplant as well and she did require short period of hemodialysis. Patient is currently on peritoneal dialysis however she is not able to do peritoneal dialysis related toweakness and right arm fracture. Patient has history of noncompliance with PD as well. - PD catheter was removed on 09/07 as it was broken and not usable. Patient alsonot able to do PD related to right arm fracture. - PD catheter tip culture still pending (2) Leucocytosis: Assessment/Problem Details: Patient has leukocytosis 40,000 with broken PD catheter and evidence of PD catheter exit site erythema and infection. Possibility of peritonitis cannot beexcluded however patient does not have documented fluid in the abdomen at this point to drain for Gram stain and culture. - CT scan of the abdomen suggestive of colitis. Patient on ertapenem and vancomycin pending the result of blood culture - Catheter tip cultures pending (3) Anemia of renal disease: Assessment/Problem Details: Patient has significant drop of hemoglobin over the last week after fall and right humerus fracture. She has large hematoma over the right arm and chest. INR also mildly elevated. Last hemoglobin was 10 g/dL on August 19 -Hemoglobin did drop down to 6.2 g/dL on 09/07 with no evidence of active bleeding. Patient had 1 unit of packed RBCs -Iron stores and B12 are adequate however folic acid is low 5.7. Patient was started on oral folic acid 1 mg daily on 09/07. -Patient on Epogen with dialysis (4) Rhabdomyolysis: Assessment/Problem Details: Patient has elevated CPK with mild rhabdomyolysis s/p fall. CPK is trending down (5) History of shoulder fracture: Assessment/Problem Details: Patient has right humerus fracture s/p fall after she tripped at home. (6) Liver transplant status: Assessment/Problem Details: Patient status post liver transplant at [facility] on October 2014. She has mild elevated AST however ALT and bilirubin are normal. There is question that the patient still drinking vodka however is not confirmed. INR is elevated. Plan * Patient will start hemodialysis today since she missed multiple PD treatment. Since she still has leukocytosis and blood culture and the catheter tip culture are pending, patient will get temporary hemodialysis catheter today and start first hemodialysis today. Dialysis orders in the chart * Tunneled hemodialysis catheter will be arranged before discharge once blood culture is negative. * Continue ertapenem and vancomycin. GI and surgery input are appreciated. Patient has questionable colitis. WBCs count is improving. It is not clear if she has peritonitis as well as or not able to collect PD fluid. * Continue current transplant medications including mycophenolate 750 mg p.o. daily and cyclosporine 75 mg p.o. daily. * Monitor daily intake and output, renal panel and CBC to adjust medications, dialysis prescription and blood transfusion as indicated. Documented By: Tima Lara MD 09/09/23 1319 Signed By: <Electronically signed by MD Tima Lara> 09/09/23 1335 [facility] Work Phone: [phone]) 952-409804-16-2024 Progress note Author Larry Peters [facility] September 09, 2023 1:15pm Note Date/Time September 09, 2023 12: 08pm [facility] [address] [place] [address] Pulmonology Progress Note Signed Patient: Winnie Cai MR#: [id number] : 1985 Acct:[id number] Age/Sex: 38 / F Adm Date: 4 Loc: Room: [address] [place] [address] Type: ADM IN Attending Dr: Tani Meehan MD Copies to: ~ Date of Service: 09/09/2023 Subjective Subjective Narrative: Patient is a 38-year-old female with a past medical history of alcoholic liver failure status post liver transplant 2014, ESRD on dialysis with peritoneal dialysis catheter, hypertension, tobacco use, anxiety, hypothyroidism who is seen at the request of the hospitalist service for temporary hemodialysis catheter placement and critical care management. Patient was seen in the emergency room after feeling like she was dehydrated. The patient had a recent right humerus fracture that occurred about a week ago. She was unable to continue her peritoneal dialysis due to loss of use of that arm for about a week. She has a history of medication noncompliance. Patient is not able to give a good history today. Patient states that she has still been drinking, andher last drink was 2 or 3 days ago. In the emergency room she had a hemoglobin of 7.3 and white blood cell count of 40 which she was empirically started on Zosyn and vancomycin. She was found to have hyponatremia with a sodium of 117, elevated creatinine of 13.93, and severehypoglycemia at 28. She had an elevated CK. The emergency room obtained a CT of the abdomen pelvis which was concerning for colitis. She was subsequently admitted to the ICU for further management. Exam Physical Exam Vital Signs: Temp Pulse Resp BP Pulse Ox O2 Del Method O2 Flow Rate 97.8 F 94 16 132/75 96 Room Air 6 09/09/23 06:00 09/09/23 06:00 09/09/23 06:00 09/09/23 06:00 09/09/23 06:00 09/09/23 06:00 09/08/23 19:23 Narrative: Const General: cooperative, patient has a noticeable tremor. Patient is struggling totalk and seems confused. HEENT Normal oropharyngeal mucosa without any ulcers or exudates Eyes: Conjunctiva normal Pulmonary Auscultation: clear to auscultation , no crackles, no wheezes Cardiovascular Rate: normal rate Rhythm: regular rhythm Heart Sounds: S1 normal, S2 normal and no murmurs GI Inspection: non-distended Palpation: soft, not firm and nontender. No rigidity or rebound. Deferred Neuro General: alert, awake. Patient is confused. Musculoskeletal: normal range of motion, right arm is currently in a sling and immobilized. Extrem General: no cyanosis, no pedal edema bilaterally Objective Intake and Output I&O - Last 24 Hours: Intake & Output 09/08/23 09/09/23 09/09/23 23:59 07:59 15:59 Intake Total 270 / 1770 120 / 120 Balance 270 / 1770 120 / 120 Weight 65.4 kg 67.2 kg Labs 09/09/23 04:35 09/09/23 04:35 Assessment/Plan Assessment/Plan (1) Sepsis: (2) Alcohol abuse: (3) Hyponatremia: (4) Metabolic encephalopathy: Plan Hospital day #0 the patient who presents for critical care management of concerns of acute metabolic encephalopathy and sepsis. This patient has a multiple problems that need to be addressed Patient had a malfunctioning peritoneal dialysis catheter that was removed by general surgery. Fluid cultures on the peritoneal dialysis catheter have been sent for culture. Her white blood cell count has been decreasing since the removal of the catheter yesterday. Blood cultures to rule out sepsis have been sent and are pending. Patient is being empirically treated with vancomycin and Zosyn. Patient has not had dialysis in the past 5 or 6 days. Nephrology is following for dialysis management. Nephrology has requested that a temporary hemodialysis catheter will be placed, consent will be obtained and this will be performed today. Will obtain a KUB status post insertion. There was some concern for hepatic encephalopathy, patient was started on lactulose per the hospitalist team, GI has been consulted for this Patient does have some signs of anemia of chronic disease secondary to kidney disease, her H&H did drop and was 6.2/19.4 which she received 1 unit of PRBC Per general surgery patient is not showing any signs of colitis. Today she continues to deny any diarrhea or abdominal pain. Patient is currently on mycophenolate and cyclosporine for her liver transplant,will continue that. She received hemodialysis after the catheter placement. Vital signs have been stable Continue to monitor her mental status Patient is on SCDs for DVT prophylaxis This is a 38-year-old female patient with significant past medical nonmedical compliance, alcohol abuse, end-stage renal disease on peritoneal dialysis, history for liver transplant supposed to be taking mycophenolate and cyclosporine admitted with diagnosis of acute metabolic encephalopathy, sepsis/source of infection abdomen, possible peritonitis and peritoneal dialysismalfunction, alcohol intoxication and right humerus fracture. Sepsis/abdominal source Concerning for peritonitis Peritoneal dialysis catheter malfunction status post removal Acute metabolic encephalopathy/multifactorial/uremia/hyponatremia/alcohol End-stage renal disease on peritoneal dialysis Severe hyponatremia High anion gap metabolic acidosis Status post liver transplant with poor compliance with antirejection medication Rhabdomyolysis Right humerus fracture/no signs of compartment syndrome Normocytic/normochromic anemia Neurochecks per ICU protocol Avoid sedatives CIWA protocol Avoid hypotonic solutions Hemodialysis catheter placed Will be started on hemodialysis Maintain oxygen saturation higher than 94% She is currently on room air with good oxygen saturation MAP>65 Not requiring vasopressors Continue current broad-spectrum antibiotics Follow-up cultures Started on cyclosporine p.o. GI and Nephrology following Maintain hemoglobin higher than 7 No need for blood transfusion DVT and GI prophylaxis CCT:50 minutes Documented By: Larry Peters MD [id number] Signed By: <Electronically signed by Larry Peters MD> 09/09/23 1317 [facility] Work Phone: [phone]) [phone] Consult note Author Dominic Ac [facility] September 09, 2023 11:54am Note Date/Time September 09, 2023 11: 25am [facility] [address] [place] [address] Gastroenterology Consult Note Signed Patient: Winnie Cai MR#: [id number] : 1985 Acct:[id number] Age/Sex: 38 / F Adm Date: 4 Loc: 4 Room: [address] [place] [address] Type: ADM IN Attending Dr: Tani Meehan MD Copies to: NON STAFF MD Dominic Washington MD~ HPI Data of Consult Date of Consultation: 09/09/23 Requesting Physician: Hortensia Cordero MD Consult Narrative History of present illness: Ms. Cai is a 38 year old female with history of liver transplant at [facility] in 2014, current alcohol dependence, end-stage renal disease on peritoneal dialysis, anemia of chronic disease, recent fall with a humerus fracture gastro enterology was consulted for anemia and encephalopathy. Patient denied melena hematochezia abdominal pain nausea vomiting change in bowel habits. Patient is alert oriented x 3, she answers questions properly however needed to ask the question multiple times for her to understand my question. As per chart review patient is noncompliant with dialysis noncompliant with her medications. cc:: CC: Hortensia Cordero MD Review of Systems Review of Systems All other systems reviewed & are negative unless noted below or in HPI [facility] Medical History (Updated 09/09/23 @ 10:22 by Pepito Gray) Tobacco dependence Thyroid dysfunction Accelerated essential hypertension Anxiety History of shoulder fracture right History of peritoneal dialysis Family History (Updated 09/16/22 @ 14:20 by Provider Conversion) Family/Other Legacy FamHx Problem: SISTER IS NON MEDICAL:NO CHILDREN Social History Smoking Status: Current every day smoker Tobacco Type: cigarettes Substance Use Type: Marijuana Substance Abuse Comment: Pt. smokes marijuana a couple times a day Meds Medications and Allergies Allergies fish oil Allergy (Unknown, Verified 09/08/23 09:53) Unknown Reaction Penicillins Allergy (Unknown, Verified 09/08/23 09:53) Unknown Reaction Sulfa (Sulfonamide Antibiotics) Allergy (Unknown, Verified 09/08/23 09:53) Unknown Reaction sulfamethoxazole [From Bactrim] Allergy (Verified 09/08/23 09:53) Unknown Reaction trimethoprim [From Bactrim] Allergy (Verified 09/08/23 09:53) Unknown Reaction Home Medications alprazolam 0.25 mg tablet 0.25 mg PO QHS PRN sleep 09/08/23 [History Confirmed 09/08/23] calcium acetate 667 mg tablet 667 mg PO TID 09/08/23 [History Confirmed 09/08/23] cyclosporine 100 mg capsule 75 mg PO DAILY 09/08/23 [History Confirmed 09/08/23] epoetin mariano 10,000 unit/mL injection solution (Epogen) 10,000 unit subcut .weekly 09/08/23 [History Confirmed 09/08/23] escitalopram oxalate 5 mg tablet (Lexapro) 15 mg PO DAILY 09/08/23 [History Confirmed 09/08/23] gentamicin 0.1 % topical cream 1 applic topical DAILY 09/08/23 [History Confirmed 09/08/23] levothyroxine 75 mcg capsule 75 mcg PO DAILY 09/08/23 [History Confirmed 09/08/23] losartan 50 mg tablet 50 mg PO QHS 09/08/23 [History Confirmed 09/08/23] magnesium glycinate 100 mg tablet (Mag Glycinate) 100 mg PO BID 09/08/23 [History Confirmed 09/08/23] metoprolol succinate 50 mg tablet,extended release 24 hr 50 mg PO QHS 09/08/23 [History Confirmed 09/08/23] mycophenolate sodium 360 mg tablet,delayed release (Myfortic) 720 mg PO DAILY 09/08/23 [History Confirmed 09/08/23] omeprazole 20 mg capsule,delayed release 20 mg PO DAILY 09/08/23 [History Confirmed 09/08/23] orphenadrine citrate 100 mg tablet,extended release 100 mg PO BID 09/08/23 [History Confirmed 09/08/23] oxycodone-acetaminophen 5 mg-325 mg tablet 1 tab PO Q4HR PRN pain 09/08/23 [History Confirmed 09/08/23] potassium chloride 20 mEq tablet,extended release 20 meq PO DAILY 09/08/23 [History Confirmed 09/08/23] protein supplement 1 ea PO .three times a week 09/08/23 [History Confirmed 09/08/23] Exam Physical Exam Vital Signs: Temp Pulse Resp BP Pulse Ox O2 Del Method O2 Flow Rate 97.8 F 94 16 132/75 96 Room Air 6 09/09/23 06:00 09/09/23 06:00 09/09/23 06:00 09/09/23 06:00 09/09/23 06:00 09/09/23 08:00 09/08/23 19:23 Narrative: General appearance: NAD Skin: No jaundice Head: NC/AT Eyes: Anicteric Neck: Supple Lungs: Normal respiratory effort, no use of accessory muscles Abdomen: Soft, nondistended Neuro: Ox3. Results - Gastroenterology Labs Labs: Laboratory Results - last 24 hr 09/08/23 09/08/23 09/08/23 10:07 11:16 12:31 Corrected WBC RBC Hgb Hct MCV MCH MCHC RDW Plt Count MPV PHA Creatinine Clear Sodium Potassium Chloride Carbon Dioxide Anion Gap BUN Creatinine Est GFR (CKD-EPI) Glucose POC Glucose 156 173 Calcium Iron TIBC Iron Saturation Transferrin Ferritin Total Bilirubin AST ALT Alkaline Phosphatase Ammonia Total Creatine Kinase 4632 H Troponin I High Sens 34.7 H Total Protein Albumin Globulin Albumin/Globulin Ratio Vitamin B12 Folate TSH 3rd Generation Ethyl Alcohol < 10 % Ethyl Alcohol TNP Blood Type Blood Type Recheck Antibody Screen Crossmatch ([facility]) 09/08/23 09/08/23 09/08/23 13:42 16:11 16:11 Corrected WBC 36.0 H RBC 2.20 L Hgb 6.2 L Hct 19.4 L* MCV 88.2 MCH 28.3 MCHC 32.1 RDW 16.3 H Plt Count 207 MPV 7.8 PHA Creatinine Clear 5.11 Sodium 119 L* Potassium 3.6 Chloride 86 L Carbon Dioxide 17.8 L Anion Gap 18.8 H BUN 65 H Creatinine 12.64 H D Est GFR (CKD-EPI) 3.479 Glucose 72 POC Glucose 147 Calcium 6.4 L* Iron 74 Cancelled TIBC TNP Iron Saturation Transferrin Ferritin Total Bilirubin AST ALT Alkaline Phosphatase Ammonia Total Creatine Kinase Troponin I High Sens Total Protein Albumin Globulin Albumin/Globulin Ratio Vitamin B12 Folate TSH 3rd Generation Ethyl Alcohol % Ethyl Alcohol Blood Type Blood Type Recheck Antibody Screen Crossmatch ([facility]) 09/08/23 09/08/23 09/08/23 16:11 16:11 16:11 Corrected WBC RBC Hgb Hct MCV MCH MCHC RDW Plt Count MPV PHA Creatinine Clear Sodium Potassium Chloride Carbon Dioxide Anion Gap BUN Creatinine Est GFR (CKD-EPI) Glucose POC Glucose Calcium Iron TIBC Cancelled Iron Saturation TNP Cancelled Transferrin < 75 L Cancelled Ferritin 874.4 H Total Bilirubin AST ALT Alkaline Phosphatase Ammonia Total Creatine Kinase Troponin I High Sens Total Protein Albumin Globulin Albumin/Globulin Ratio Vitamin B12 Folate TSH 3rd Generation Ethyl Alcohol % Ethyl Alcohol Blood Type Blood Type Recheck Antibody Screen Crossmatch ([facility]) 09/08/23 09/08/23 09/08/23 16:11 16:11 16:11 Corrected WBC RBC Hgb Hct MCV MCH MCHC RDW Plt Count MPV PHA Creatinine Clear Sodium Potassium Chloride Carbon Dioxide Anion Gap BUN Creatinine Est GFR (CKD-EPI) Glucose POC Glucose Calcium Iron TIBC Iron Saturation Transferrin Ferritin Cancelled Total Bilirubin AST ALT Alkaline Phosphatase Ammonia Total Creatine Kinase Troponin I High Sens Total Protein Albumin Globulin Albumin/Globulin Ratio Vitamin B12 3929 H Cancelled Folate 5.7 L Cancelled TSH 3rd Generation Ethyl Alcohol % Ethyl Alcohol Blood Type Blood Type Recheck Antibody Screen Crossmatch ([facility]) 09/08/23 09/08/23 09/08/23 17:01 20:02 20:11 Corrected WBC RBC Hgb Hct MCV MCH MCHC RDW Plt Count MPV PHA Creatinine Clear Sodium Potassium Chloride Carbon Dioxide Anion Gap BUN Creatinine Est GFR (CKD-EPI) Glucose POC Glucose 77 88 Calcium Iron TIBC Iron Saturation Transferrin Ferritin Total Bilirubin AST ALT Alkaline Phosphatase Ammonia Total Creatine Kinase Troponin I High Sens Total Protein Albumin Globulin Albumin/Globulin Ratio Vitamin B12 Folate [facility] 3rd Generation Ethyl Alcohol % Ethyl Alcohol Blood Type O Positive Blood Type Recheck Antibody Screen Negative Crossmatch ([facility]) See Detail 09/08/23 09/09/23 09/09/23 21:24 00:34 04:35 Corrected WBC 28.9 H RBC 2.59 L Hgb 7.5 L Hct 22.9 L MCV 88.4 MCH 29.1 MCHC 32.9 RDW 16.1 H Plt Count 207 MPV 7.8 PHA Creatinine Clear 5.06 Sodium 118 L* Potassium 4.3 Chloride 83 L Carbon Dioxide 15.5 L Anion Gap 23.8 H BUN 69 H Creatinine 12.77 H Est GFR (CKD-EPI) 3.437 Glucose 85 POC Glucose 80 Calcium 6.8 L Iron TIBC Iron Saturation Transferrin Ferritin Total Bilirubin 1.1 H AST 114 H ALT 49 Alkaline Phosphatase 168 H Ammonia 59 H Total Creatine Kinase 2472 H Troponin I High Sens Total Protein 4.7 L Albumin 2.2 L Globulin 2.5 Albumin/Globulin Ratio 0.9 Vitamin B12 Folate TSH 3rd Generation 2.58 Ethyl Alcohol % Ethyl Alcohol Blood Type Blood Type Recheck O Positive Antibody Screen Crossmatch ([facility]) A&P - Gastroenterology Assessment/Plan (1) Metabolic encephalopathy: (2) Anemia of renal disease: Plan Ms. Cai is a 38 year old female with history of liver transplant at [facility] in 2015, current alcohol dependence, end-stage renal disease on peritoneal dialysis, anemia of chronic disease, recent fall with a humerus fracture gastro enterology was consulted for anemia and encephalopathy. - It is unclear if patient has hepatic encephalopathy as she does not have definitive evidence of cirrhosis. Her encephalopathy could be secondary to alcohol intoxication vs uremia vs sepsis. However can use lactulose for goal of2-3 bowel movements a day. -Regarding anemia, patient has anemia of chronic disease due to ESRD and does not have overt bleeding. If patient develops any signs of overt bleeding then will consider endoscopic evaluation. -Regarding colitis seen on imaging, agree with stool infectious workup includingC. difficile, ova parasite and stool culture. Patient is already on antibioticsper primary Documented By: Dominic Ac MD 09/09/23 1109 Signed By: <Electronically signed by Dominic Ac MD> 09/09/23 1154 [facility] Work Phone: [phone] 401-761204-16-2024 [facility] Progress note Author Hal Mejia [facility] September 09, 2023 8:55am Note Date/Time September 09, 2023 8:[address] [facility] [address] [place] [address] General Surgery Progress Note Signed Patient: Winnie Cai MR#: [id number] : 1985 Acct:[id number] Age/Sex: 38 / F Adm Date: 4 Loc: Room: [address] [place] [address] Type: ADM IN Attending Dr: Tani Meehan MD Copies to: ~ Date of Service: 09/09/2023 Subjective Subjective HPI: Patient has no complaints this morning. She denies any abdominal pain. No nausea or vomiting. No diarrhea. No fevers chills or sweats. She states she is thirsty. Per nursing she has been encephalopathic/delirious but the agree with those statements that she has not had any complaints nor any vomiting Allergies & Medications Medications and Allergies Allergies fish oil Allergy (Unknown, Verified 09/08/23 09:53) Unknown Reaction Penicillins Allergy (Unknown, Verified 09/08/23 09:53) Unknown Reaction Sulfa (Sulfonamide Antibiotics) Allergy (Unknown, Verified 09/08/23 09:53) Unknown Reaction sulfamethoxazole [From Bactrim] Allergy (Verified 09/08/23 09:53) Unknown Reaction trimethoprim [From Bactrim] Allergy (Verified 09/08/23 09:53) Unknown Reaction Home Medications alprazolam 0.25 mg tablet 0.25 mg PO QHS PRN sleep 09/08/23 [History Confirmed 09/08/23] calcium acetate 667 mg tablet 667 mg PO TID 09/08/23 [History Confirmed 09/08/23] cyclosporine 100 mg capsule 75 mg PO DAILY 09/08/23 [History Confirmed 09/08/23] epoetin mariano 10,000 unit/mL injection solution (Epogen) 10,000 unit subcut .weekly 09/08/23 [History Confirmed 09/08/23] escitalopram oxalate 5 mg tablet (Lexapro) 15 mg PO DAILY 09/08/23 [History Confirmed 09/08/23] gentamicin 0.1 % topical cream 1 applic topical DAILY 09/08/23 [History Confirmed 09/08/23] levothyroxine 75 mcg capsule 75 mcg PO DAILY 09/08/23 [History Confirmed 09/08/23] losartan 50 mg tablet 50 mg PO QHS 09/08/23 [History Confirmed 09/08/23] magnesium glycinate 100 mg tablet (Mag Glycinate) 100 mg PO BID 09/08/23 [History Confirmed 09/08/23] metoprolol succinate 50 mg tablet,extended release 24 hr 50 mg PO QHS 09/08/23 [History Confirmed 09/08/23] mycophenolate sodium 360 mg tablet,delayed release (Myfortic) 720 mg PO DAILY 09/08/23 [History Confirmed 09/08/23] omeprazole 20 mg capsule,delayed release 20 mg PO DAILY 09/08/23 [History Confirmed 09/08/23] orphenadrine citrate 100 mg tablet,extended release 100 mg PO BID 09/08/23 [History Confirmed 09/08/23] oxycodone-acetaminophen 5 mg-325 mg tablet 1 tab PO Q4HR PRN pain 09/08/23 [History Confirmed 09/08/23] potassium chloride 20 mEq tablet,extended release 20 meq PO DAILY 09/08/23 [History Confirmed 09/08/23] protein supplement 1 ea PO .three times a week 09/08/23 [History Confirmed 09/08/23] Active Medications Dextrose (Dextrose 50% In Water 25 Gm/50 Ml Syringe) 0 gm IV-PUSH PRN PRN PRN Reason: Hypoglycemia Stop: 09/07/24 17:35 Last Admin: 09/08/23 18:00 Dose: 25 gm Escitalopram Oxalate (Escitalopram 5 Mg Tablet) 15 mg PO DAILY SERENA Stop: 09/08/24 08:59 Folic Acid (Folic Acid 1 Mg Tablet) 1 mg PO DAILY SERENA Stop: 09/08/24 08:59 Last Admin: 09/09/23 08:13 Dose: 1 mg Gentamicin Sulfate (Gentamicin 0.1% Cream 15 Gm Tube) 1 applic TOPICAL DAILY SERENA Stop: 09/08/24 08:59 Ertapenem 0.5 gm/ Sodium (Chloride) 100 mls @ 200 mls/hr IV Q24H SERENA Stop: 09/07/24 20:59 Last Admin: 09/08/23 22:17 Dose: 200 mls/hr Sodium Chloride (0.9 % Sodium Chloride) 500 mls @ 20 mls/hr IV PROTOCOL PRN PRN Reason: BLOOD TRANSFUSION Stop: 09/09/23 23:37 Lactulose (Lactulose 20 Gm/30 Ml Udc) 20 gm PO TID SERENA Stop: 09/08/24 08:59 Last Admin: 09/09/23 08:17 Dose: 20 gm Lorazepam (Lorazepam 1 Mg Tablet) 0 mg PO PROTOCOL PRN; Protocol PRN Reason: Alcohol Withdrawal Stop: 03/06/24 19:04 Lorazepam (Lorazepam 2 Mg/Ml Vial) 0 mg IV-PUSH PROTOCOL PRN; Protocol PRN Reason: Alcohol Withdrawal Stop: 03/06/24 19:04 Metoprolol Succinate (Metoprolol Succinate 50 Mg Tab.Er.24h) 50 mg PO QHS SERENA Stop: 09/07/24 21:59 Morphine Sulfate (Morphine Sulfate 2 Mg/Ml Vial) 2 mg IV-PUSH Q4H PRN PRN Reason: Pain Scale 7 - 10 Multivitamins (Multivitamin 1 Tab Tablet) 1 tab PO DAILY SERENA Stop: 09/08/24 08:59 Last Admin: 09/09/23 08:13 Dose: 1 tab Mycophenolate Sodium (Mycophenolate Sodium *Nf* 360 Mg Tablet.Dr) 720 mg PO DAILY [facility] Stop: 09/08/24 08:59 Non-Formulary Medication (Calcium Acetate) 667 mg PO TID SERENA Stop: 09/07/24 21:59 Non-Formulary Medication (Cyclosporine) 75 mg PO DAILY SERENA Stop: 09/08/24 08:59 Non-Formulary Medication (Epoetin Mariano [Epogen]) 10,000 unit SUBCUT .weekly [facility] Stop: 09/07/24 15:44 Non-Formulary Medication (Levothyroxine) 75 mcg PO DAILY [facility] Stop: 09/08/24 08:59 Non-Formulary Medication (Magnesium Glycinate [Mag Glycinate]) 100 mg PO BID [facility] Stop: 09/07/24 20:59 Ondansetron HCl (Ondansetron 4 Mg/2 Ml Vial) 4 mg IV-PUSH Q6H PRN PRN Reason: Nausea And Vomiting Stop: 09/07/24 15:48 Oxycodone/Acetaminophen (Oxycodone/Acetaminophen 5-325 Mg Tablet) 1 tab PO [id number] PRN Reason: pain Pantoprazole Sodium (Pantoprazole 40 Mg Vial) 40 mg IV-PUSH DAILY [facility] Stop: 09/08/24 08:59 Last Admin: 09/09/23 08:14 Dose: 40 mg Phytonadione (Phytonadione 5 Mg Tablet) 5 mg PO DAILY [facility] Stop: 09/09/23 09:01 Last Admin: 09/09/23 08:14 Dose: 5 mg Potassium Chloride (Potassium Chloride Er 20 Meq Tab.Er.Prt) 40 meq PO DAILY PRN PRN Reason: Hypokalemia Stop: 09/07/24 15:48 Sodium Bicarbonate (Sodium Bicarbonate 650 Mg Tablet) 1,300 mg PO TID [facility] Stop: 09/07/24 21:14 Last Admin: 09/09/23 08:13 Dose: 1,300 mg Sodium Chloride (Sodium Chloride 0.9 % 10 Ml Syringe) 0 ml IV-PUSH PRN PRN PRN Reason: Flush Stop: 09/07/24 09:51 Last Admin: 09/08/23 10:37 Dose: 10 ml Sodium Chloride (Sodium Chloride 0.9 % 10 Ml Vial.Pf) 10 ml INJECTION DAILY SERENA Stop: 09/08/24 08:59 Last Admin: 09/09/23 08:17 Dose: 10 ml Sodium Chloride (Sodium Chloride 0.9 % 10 Ml Syringe) 10 ml IV-PUSH PRN PRN PRN Reason: Flush Stop: 09/07/24 15:47 Sodium Chloride (Sodium Chloride 0.9 % 10 Ml Vial.Pf) 0 ml IV PRN PRN PRN Reason: ATIVAN DILUTION Stop: 09/07/24 19:07 Thiamine HCl (Thiamine 100 Mg Tablet) 100 mg PO BID SERENA Stop: 09/07/24 20:59 Last Admin: 09/09/23 08:14 Dose: 100 mg Vancomycin HCl (Vancomycin - Pharmacy Dosing 1 Each Miscell) 1 each IV ONCE PRN; Protocol PRN Reason: ZZ.Pharmacy Consult Exam Physical Exam Vital Signs: Temp Pulse Resp BP Pulse Ox O2 Del Method O2 Flow Rate 97.8 F 94 16 132/75 96 Room Air 6 09/09/23 06:00 09/09/23 06:00 09/09/23 06:00 09/09/23 06:00 09/09/23 06:00 09/09/23 06:00 09/08/23 19:23 Narrative: Patient is pleasant conversive but mildly delirious. Heart is regular rate. Abdomen is soft nontender nondistended. Incision is clean dry and intact. No purulence or cellulitis around the incision nor the exit site from the catheter Objective Intake & Output 24 hour I&O: Intake & Output 09/08/23 09/09/23 09/09/23 23:59 07:59 15:59 Intake Total 270 / 1770 120 / 120 Balance 270 / 1770 120 / 120 Weight 65.4 kg 67.2 kg Labs 09/09/23 04:35 09/09/23 04:35 Laboratory Results - Last 48 hrs. 09/09/23 04:35: Corrected WBC 28.9 H, RBC 2.59 L, Hgb 7.5 L, Hct 22.9 L, MCV 88.4, MCH 29.1, MCHC 32.9, RDW 16.1 H, Plt Count 207, MPV 7.8, PHA Creatinine Clear 5.06, Sodium 118 L*, Potassium 4.3, Chloride 83 L, Carbon Dioxide 15.5 L, Anion Gap 23.8 H, BUN 69 H, Creatinine 12.77 H, Est GFR (CKD-EPI) 3.437, [id number], Calcium 6.8 L, Total Bilirubin 1.1 H, AST 114 H, ALT 49, Alkaline Phosphatase 168 H, Ammonia 59 H, Total Creatine Kinase 2472 H, Total Protein 4.7L, Albumin 2.2 L, Globulin 2.5, Albumin/Globulin Ratio 0.9, TSH 3rd Generation 2.58 09/09/23 00:34: POC Glucose 80 09/08/23 21:24: Blood Type Recheck O Positive 09/08/23 20:11: Blood Type O Positive, Antibody Screen Negative, Crossmatch (AHG) See Detail 09/08/23 20:02: POC Glucose 88 09/08/23 17:01: POC Glucose 77 09/08/23 16:11: Folate Cancelled 09/08/23 16:11: Vitamin B12 Cancelled, Folate 5.7 L 09/08/23 16:11: Ferritin Cancelled, Vitamin B12 3929 H 09/08/23 16:11: Transferrin Cancelled, Ferritin 874.4 H 09/08/23 16:11: Iron Saturation Cancelled, Transferrin < 75 L 09/08/23 16:11: TIBC Cancelled, Iron Saturation TNP 09/08/23 16:11: Iron Cancelled, TIBC TNP 09/08/23 16:11: Corrected WBC 36.0 H, RBC 2.20 L, Hgb 6.2 L, Hct 19.4 L*, MCV 88.2, MCH 28.3, MCHC 32.1, RDW 16.3 H, Plt Count 207, MPV 7.8, PHA Creatinine Clear 5.11, Sodium 119 L*, Potassium 3.6, Chloride 86 L, Carbon Dioxide 17.8 L, Anion Gap 18.8 H, BUN 65 H, Creatinine 12.64 H D, Est GFR (CKD-EPI) 3.479, Glucose 72, Calcium 6.4 L*, Iron 74 09/08/23 13:42: POC Glucose 147 09/08/23 12:31: POC Glucose 173 09/08/23 11:16: POC Glucose 156 09/08/23 10:33: Ammonia 56 H 09/08/23 10:07: Corrected WBC 40.3 H, Uncorrected WBC Count 40.3 H, RBC 2.57 L, Hgb 7.3 L, Hct 22.9 L, MCV 89.1, MCH 28.5, MCHC 32.0, RDW 16.5 H, Plt Count 258,MPV 7.9, Neut % (Auto) N/A, Lymph % (Auto) N/A, [place] % (Auto) N/A, Eos % (Auto) N/A, Baso % (Auto) N/A, Nucleat RBC Rel Count N/A, Neut # (Auto) N/A, Lymph # (Auto) N/A, [place] # (Auto) N/A, Eos # (Auto) N/A, Baso # (Auto) N/A, Lymphocytes % 1 L, Monocytes % 3, Segmented Neutrophils 96 H, Monocyte Dist Width Test not performed, Toxic Granulation Marked, Toxic Vacuolation Slight, Platelet EstimateNormal, Plt Morphology Comment Normal, RBC Morphology N/A, Polychromasia Slight,Hypochromasia Slight, Anisocytosis Slight, Target Cells Slight, PT 15.9 H, INR 1.4, APTT 35.4, PHA Creatinine Clear N/A, Sodium 117 L*, Potassium 3.7, [id number] L, Carbon Dioxide 20.6 L, Anion Gap 22.1 H, BUN 69 H, Creatinine 13.93 H, EstGFR (CKD-EPI) 3.096, Glucose 28 L*, Lactic Acid 1.1, Calcium 7.2 L, Total Bilirubin 1.1 H, Direct Bilirubin 0.60 H, Indirect Bilirubin 0.5, AST 162 H, ALT47, Alkaline Phosphatase 231 H, Total Creatine Kinase 4632 H, Troponin I High Sens 34.7 H, B-Natriuretic Peptide 130.0 H, Total Protein 5.3 L, Albumin 2.5 L, Globulin 2.8, Albumin/Globulin Ratio 0.9, Ethyl Alcohol < 10, % Ethyl Alcohol TNP A&P - General Surgery Assessment/Plan (1) History of peritoneal dialysis: (2) Leucocytosis: (3) Liver transplant status: (4) Peritoneal dialysis catheter mechanical complication: (5) Alcohol abuse: (6) Sepsis: Plan Postoperative day 1 status post removal of peritoneal dialysis catheter. Cultures pending. I defer to primary team and nephrology and pulmonology critical care for further management. At present there is no evidence of colitis i.e. loose stool or abdominal pain. Patient's white blood cell count isdecreasing and her tachycardia is improving with removal of the catheter. If patient shows evidence of any significant colitis or intra-abdominal issue she needs to be emergently transferred to tertiary care center with experience with liver transplant patients. I will sign off and reevaluate at your request Documented By: Hal Mejia DO 09/09/23 0850 Signed By: <Electronically signed by DO Hal Mejia> 09/09/23 [address] [facility] Work Phone: [phone] History and physical note Author Hortensia Cordero [facility] September 08, 2023 11:55pm Note Date/Time September 08, 2023 11: 25pm 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 the patient is unable to give a good history Per family the patient has been non compliant with her medication and dialysis for the past one month . she did not have any dialysis in the past 5-6 days with reported PD dialysis malfunction for the past two days. She reported SOB, month dryness, generalized weakness and poor oral intake but denied any cough, chest pain, abdominal pain, joint pain, fever, chills, N/V or diarrhea. On 08/31 she had a fall from a chair and went to [facility] ED and was found with a nondisplaced fracture of the surgical neck of right humerus. she was treated conservatively. After that she was not able to do her PD at home due to not able to use her arm to hook the PD with the bags Family denied any alcoholic intake. Hover she told the nurse earlier that she still drink ROS: the patient is little bit confused but oriented. she denied any other Sx Assessment And Plan Rule out Sepsis Rule out infected PD catheter The patient was found with severe leukocytosis with WBC up to 40K and tachycardia. initial lactic acid level was not elevated up. There is no sign of clear infection. Leukocytosis could be due to dehydration. Given her PD cathetermalfunction PD cath infection can?t be ruled out The patient received IVF in the ED. Then she was reevaluated after IVF within 6 hours: the Capillary refill is more than 3 seconds, Pulses present bilaterally and Skin normal for ethnicity. repeat lactate level was done she was started empirically on broad spectrum IV antibiotics with Invanz (PNC allergy) and Vancomycin IV Blood Cx Catheter Tip Cx Possible Acute on Chronic Anemia Hg of the presentation 7.3. No recent Hg to compare. no overt bleeding. last Hg i can find back in september last year of 11 at [facility] Hg expected to drop with hydration Will transfuse as needed PLT > 50 INR 1.4 will give vitamin K oral Check TIBC, Iron Saturation, Iron Level , LDH, ferritin, Reticulocyte count, B12/Folate She is hemodynamically stable and has no sign of any bleeding. her anemia is Possible Acute blood loss due to her recent fracture on top of Anemia of CKD Favor consulting GI switch oral PPI to IV ESRD PD cath dysfunction hyponatremia d/w Dr Lara Nephrology was consulted for the management of dialysis and ESRD complication, recommendation appreciated. General surgery was consulted for PD cath removal. d/w Dr. Mejia (the patient due to her Etoh abuse to go back to ICU) Elevated CK She was given IVF Hypocalcemia Ca 6.4 corrected Ca 7.6 Liver transplant Possible hepatic encephalopathy Ammonia 55 ct brain shows no acute intracranial process c/w home medication Start lactulose Favor consulting GI Elevated Troponin Mild non singing cat . she denied any chest pain . no EKG changes Recent right trumatic proximal humerus fracture XR shoulder at [facility] 09/01/2023 reported : Acute comminuted fracture of the surgical neck of the right proximal humerus demonstrating approximately 1 cm anteromedial displacement and slight impaction.Suspect nondisplaced fracture extension into the greater tuberosity. Approximately 1 cm linear density adjacent to the greater tuberosity of the humeral head suspicious for acute fracture fragment. Differential includes calcium hydroxyapatite deposition and calcific tendinosis of the right rotator Cuff. The patient was treated conservatively at [facility] ER c/w immobilization outpatient follow up Pain control Suspected EtOH Abuse Disorder Blood alcohol concentration (TRES)is not detected [facility] protocol Multivitamin/folic acid/Thiamine Symptom control and supportive care EKG ED (i personally reviewed it) shows NSR@ 92 bpm no significant acute changes ? Chronic diseases:?Unless mentioned Above, Essential home medications have been continued.? DVT Px:?Addressed Plan of care Discussed with:?the medical team, the patient , grandmother and aunt addendum by reviewing chart form home noted worsening of her Hg which was expected with hydration. i will order one unit of blood to be transfused and put one on hold. her BP remain stable. i will let the night team know to follow up [facility] Medical History (Updated 09/08/23 @ 18:16 by Hal Mejia DO) History of shoulder fracture right History of peritoneal dialysis Family History (Updated 09/16/22 @ 14:20 by Provider Conversion) Family/Other Legacy FamHx Problem: SISTER IS NON MEDICAL:NO CHILDREN Social History Smoking Status: Current every day smoker Tobacco Type: cigarettes Substance Use Type: Marijuana Substance Abuse Comment: Pt. smokes marijuana a couple times a day Meds Medications and Allergies Allergies fish oil Allergy (Unknown, Verified 09/08/23 09:53) Unknown Reaction Penicillins Allergy (Unknown, Verified 09/08/23 09:53) Unknown Reaction Sulfa (Sulfonamide Antibiotics) Allergy (Unknown, Verified 09/08/23 09:53) Unknown Reaction sulfamethoxazole [From Bactrim] Allergy (Verified 09/08/23 09:53) Unknown Reaction trimethoprim [From Bactrim] Allergy (Verified 09/08/23 09:53) Unknown Reaction Home Medications alprazolam 0.25 mg tablet 0.25 mg PO QHS PRN sleep 09/08/23 [History Confirmed 09/08/23] calcium acetate 667 mg tablet 667 mg PO TID 09/08/23 [History Confirmed 09/08/23] cyclosporine 100 mg capsule 75 mg PO DAILY 09/08/23 [History Confirmed 09/08/23] epoetin mariano 10,000 unit/mL injection solution (Epogen) 10,000 unit subcut .weekly 09/08/23 [History Confirmed 09/08/23] escitalopram oxalate 5 mg tablet (Lexapro) 15 mg PO DAILY 09/08/23 [History Confirmed 09/08/23] gentamicin 0.1 % topical cream 1 applic topical DAILY 09/08/23 [History Confirmed 09/08/23] levothyroxine 75 mcg capsule 75 mcg PO DAILY 09/08/23 [History Confirmed 09/08/23] losartan 50 mg tablet 50 mg PO QHS 09/08/23 [History Confirmed 09/08/23] magnesium glycinate 100 mg tablet (Mag Glycinate) 100 mg PO BID 09/08/23 [History Confirmed 09/08/23] metoprolol succinate 50 mg tablet,extended release 24 hr 50 mg PO QHS 09/08/23 [History Confirmed 09/08/23] mycophenolate sodium 360 mg tablet,delayed release (Myfortic) 720 mg PO DAILY 09/08/23 [History Confirmed 09/08/23] omeprazole 20 mg capsule,delayed release 20 mg PO DAILY 09/08/23 [History Confirmed 09/08/23] orphenadrine citrate 100 mg tablet,extended release 100 mg PO BID 09/08/23 [History Confirmed 09/08/23] oxycodone-acetaminophen 5 mg-325 mg tablet 1 tab PO Q4HR PRN pain 09/08/23 [History Confirmed 09/08/23] potassium chloride 20 mEq tablet,extended release 20 meq PO DAILY 09/08/23 [History Confirmed 09/08/23] protein supplement 1 ea PO .three times a week 09/08/23 [History Confirmed 09/08/23] Exam Physical Exam Vital Signs: Temp Pulse Resp BP Pulse Ox O2 Del Method O2 Flow Rate 36.6 C 108 H 20 135/78 95 Room Air 6 09/08/23 21:00 09/08/23 21:00 09/08/23 21:00 09/08/23 21:00 09/08/23 21:00 09/08/23 21:00 09/08/23 19:23 Narrative: GEN: Pleasant, Cooperative, Not in acute distress. NECK: Supple, ? JVD, ? LAD LUNGS: CTA. normal respiratory effort. CHEST: no chest wall tenderness. CV: S1S2 nl, ? M/R/G ABD: Soft, ND, NT, PD cath noted, + BS, ? rebound/guarding, ?CVA tenderness, ? HSM EXT: No edema in LE bilaterally, no calf muscle tenderness. NEURO: ? FND, CN II-XII (intact), Motor Strength (5/5 RUE, 5/5 LUE, 5/5 RLE, 5/5LLE) , Sensation (Intact to soft touch) PSYCH: flat affect, she has slow answering question, AOx3. Results - Hospitalist H&P Lab Results Labs: Laboratory Last Values Corrected WBC 36.0 X10E3/uL (3.8-11.6) H 09/08/23 16:11 Uncorrected WBC Count 40.3 x10E3/uL (3.8-11.6) H 09/08/23 10:07 RBC 2.20 X10E6/uL (3.60-5.00) L 09/08/23 16:11 Hgb 6.2 g/dL (11.8-15.4) L 09/08/23 16:11 Hct 19.4 % (34.0-46.4) L* 09/08/23 16:11 MCV 88.2 fl (80-100) 09/08/23 16:11 MCH 28.3 pg (24.7-34.3) 09/08/23 16:11 MCHC 32.1 g/dL (32.0-35.0) 09/08/23 16:11 RDW 16.3 % (11.9-15.3) H 09/08/23 16:11 Plt Count 207 x10E3/uL (150-450) 09/08/23 16:11 MPV 7.8 fl (6.3-10.7) 09/08/23 16:11 Neut % (Auto) N/A 09/08/23 10:07 Lymph % (Auto) N/A 09/08/23 10:07 [place] % (Auto) N/A 09/08/23 10:07 Eos % (Auto) N/A 09/08/23 10:07 Baso % (Auto) N/A 09/08/23 10:07 Nucleat RBC Rel Count N/A 09/08/23 10:07 Neut # (Auto) N/A 09/08/23 10:07 Lymph # (Auto) N/A 09/08/23 10:07 [place] # (Auto) N/A 09/08/23 10:07 Eos # (Auto) N/A 09/08/23 10:07 Baso # (Auto) N/A 09/08/23 10:07 Lymphocytes % 1 % (18-42) L 09/08/23 10:07 Monocytes % 3 % (2-11) 09/08/23 10:07 Segmented Neutrophils 96 % (50-70) H 09/08/23 10:07 Monocyte Dist Width Test not performed % (0.00-20.00) 09/08/23 10:07 Toxic Granulation Marked 09/08/23 10:07 Toxic Vacuolation Slight 09/08/23 10:07 Platelet Estimate Normal (Normal) 09/08/23 10:07 Plt Morphology Comment Normal (Normal) 09/08/23 10:07 RBC Morphology N/A 09/08/23 10:07 Polychromasia Slight 09/08/23 10:07 Hypochromasia Slight 09/08/23 10:07 Anisocytosis Slight 09/08/23 10:07 Target Cells Slight 09/08/23 10:07 PT 15.9 Seconds (9.0-12.9) H 09/08/23 10:07 INR 1.4 09/08/23 10:07 APTT 35.4 Seconds (25.1-36.5) 09/08/23 10:07 PHA Creatinine Clear 5.11 09/08/23 16:11 Sodium 119 mmol/L (136-145) L* 09/08/23 16:11 Potassium 3.6 mmol/L (3.5-5.1) 09/08/23 16:11 Chloride 86 mmol/L (98-107) L 09/08/23 16:11 Carbon Dioxide 17.8 mmol/L (21.0-31.0) L 09/08/23 16:11 Anion Gap 18.8 mEq/L (6.0-15.0) H 09/08/23 16:11 BUN 65 mg/dL (7-25) H 09/08/23 16:11 Creatinine 12.64 mg/dL (0.60-1.20) H D 09/08/23 16:11 Est GFR (CKD-EPI) 3.479 mL/Min 09/08/23 16:11 Glucose 72 mg/dL (70-100) 09/08/23 16:11 POC Glucose 88 mg/dl 09/08/23 20:02 Lactic Acid 1.1 mmol/L (0.5-2.2) 09/08/23 10:07 Calcium 6.4 mg/dL (8.6-10.3) L* 09/08/23 16:11 Iron 74 ug/dL (50-212) 09/08/23 16:11 Iron Cancelled 09/08/23 16:11 TIBC Cancelled 09/08/23 16:11 TIBC TNP 09/08/23 16:11 Iron Saturation Cancelled 09/08/23 16:11 Iron Saturation TNP 09/08/23 16:11 Transferrin < 75 mg/dL (203-362) L 09/08/23 16:11 Transferrin Cancelled 09/08/23 16:11 Ferritin 874.4 ng/mL (11.0-306.8) H 09/08/23 16:11 Ferritin Cancelled 09/08/23 16:11 Total Bilirubin 1.1 mg/dl (0.3-1.0) H 09/08/23 10:07 Direct Bilirubin 0.60 mg/dL (0.03-0.18) H 09/08/23 10:07 Indirect Bilirubin 0.5 mg/dL 09/08/23 10:07 AST 162 U/L (13-39) H 09/08/23 10:07 ALT 47 U/L (7-52) 09/08/23 10:07 Alkaline Phosphatase 231 U/L (34-104) H 09/08/23 10:07 Ammonia 56 umol/L (11-35) H 09/08/23 10:33 Total Creatine Kinase 4632 U/L (30-223) H 09/08/23 10:07 Troponin I High Sens 34.7 pg/mL (0.0-15.0) H 09/08/23 10:07 B-Natriuretic Peptide 130.0 pg/mL (5-100) H 09/08/23 10:07 Total Protein 5.3 gm/dL (6.4-8.9) L 09/08/23 10:07 Albumin 2.5 gm/dL (3.5-5.7) L 09/08/23 10:07 Globulin 2.8 gm/dL 09/08/23 10:07 Albumin/Globulin Ratio 0.9 09/08/23 10:07 Vitamin B12 3929 pg/mL (180-914) H 09/08/23 16:11 Vitamin B12 Cancelled 09/08/23 16:11 Folate 5.7 ng/mL (>5.9) L 09/08/23 16:11 Folate Cancelled 09/08/23 16:11 Ethyl Alcohol < 10 mg/dL 09/08/23 10:07 % Ethyl Alcohol TNP 09/08/23 10:07 Blood Type O Positive 09/08/23 20:11 Blood Type Recheck O Positive 09/08/23 21:24 Antibody Screen Negative 09/08/23 20:11 Assessment & Plan Assessment/Plan (1) Peritoneal dialysis catheter mechanical complication: (2) Liver transplant status: (3) Anemia of renal disease: (4) Rhabdomyolysis: (5) Dehydration: Plan IP vs OBS Justification Based on differential dx, clinical care plan, and risk of adverse events, if untreated, in my clinical judgement this patient requires an acute care setting as: INPATIENT because of an expectation of an over 2 midnight stay. Estimated length of stay (# of days): 5 Documented By: Hortensia Cordero MD 09/08/23 1500 Signed By: <Electronically signed by Hortensia Cordero MD> 09/08/23 [id number] [facility] Work Phone: [phone] [phone] Consult note Author Hal Mejia [facility] September 08, 2023 6:32pm Note Date/Time September 08, 2023 6:[address] [facility] [address] [place] [address] General Surgery Consult Note Signed with Addenda Patient: Winnie Cai MR#: [id number] : 1985 Acct:[id number] Age/Sex: 38 / F Adm Date: 4 Loc: Room: [address] [place] [address] Type: ADM IN Attending Dr: Tani Meehan MD Copies to: NON STAFF MD Hal Washington,~ ADDENDUM1 CT noted possible colitis, patient has no abdominal pain nor diarrhea nor other abdominal symptoms. Unlikely that she has a significant colitis. I discussed with her hospitalist Dr. Cordero that this is an extremely complicated patient, we are not a transplant center we do not routinely take care of transplant patients nor do we manage complicated transplant surgical patients. If she needed any intra- abdominal surgery and colectomy or other intra-abdominal operation I would recommend immediate transfer to a tertiary care center. Addendum Documented By: DO Hal Mejia 09/08/23 183 Addendum Signed By: <Electronically signed by DO Hal Mejia> 09/08/23 183 History of Present Illness Date of consult: 09/08/2023 Requesting/Attending Provider: Hortensia Cordero MD History of present illness: I was consulted to the patient for reason of possible peritonitis from peritoneal dialysis catheter which is damaged. Patient had a fall all and brokeher humerus about a week ago. Since that time she has not been really doing herperitoneal dialysis. Her family thinks that it may have been damaged as long ago was last Friday. Patient said that she just taped it so was not drainingall over her. She was hypothermic with some lower blood pressure and tachycardic in the emergency room. Concern for sepsis and sepsis workup was done. Patient denies any abdominal pain. She is not having any nausea or vomiting. She is very thirsty she would like to drink something. She is not having any diarrhea. She thinks that she has had the peritoneal dialysis catheter for about a year. She thinks it was placed at [place]. Patient has a history of a liver transplant which was done in 2014 at [facility]. She used to follow at [facility] and then transferred her transplant care to [place]. She had cirrhosis from alcoholism. She still is actively drinking alcohol routinely, mostly vodka. 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 She has been on dialysis for several years. [facility] Medical History (Updated 09/08/23 @ 18:16 by Hal Mejia DO) History of shoulder fracture right History of peritoneal dialysis Family History (Updated 09/16/22 @ 14:20 by Provider Conversion) Family/Other Legacy FamHx Problem: SISTER IS NON MEDICAL:NO CHILDREN Social History Smoking Status: Current every day smoker Tobacco Type: cigarettes Substance Use Type: Marijuana Substance Abuse Comment: Pt. smokes marijuana a couple times a day Allergies & Medications Medications and Allergies Allergies fish oil Allergy (Unknown, Verified 09/08/23 09:53) Unknown Reaction Penicillins Allergy (Unknown, Verified 09/08/23 09:53) Unknown Reaction Sulfa (Sulfonamide Antibiotics) Allergy (Unknown, Verified 09/08/23 09:53) Unknown Reaction sulfamethoxazole [From Bactrim] Allergy (Verified 09/08/23 09:53) Unknown Reaction trimethoprim [From Bactrim] Allergy (Verified 09/08/23 09:53) Unknown Reaction Home Medications alprazolam 0.25 mg tablet 0.25 mg PO QHS PRN sleep 09/08/23 [History Confirmed 09/08/23] calcium acetate 667 mg tablet 667 mg PO TID 09/08/23 [History Confirmed 09/08/23] cyclosporine 100 mg capsule 75 mg PO DAILY 09/08/23 [History Confirmed 09/08/23] epoetin mariano 10,000 unit/mL injection solution (Epogen) 10,000 unit subcut .weekly 09/08/23 [History Confirmed 09/08/23] escitalopram oxalate 5 mg tablet (Lexapro) 15 mg PO DAILY 09/08/23 [History Confirmed 09/08/23] gentamicin 0.1 % topical cream 1 applic topical DAILY 09/08/23 [History Confirmed 09/08/23] levothyroxine 75 mcg capsule 75 mcg PO DAILY 09/08/23 [History Confirmed 09/08/23] losartan 50 mg tablet 50 mg PO QHS 09/08/23 [History Confirmed 09/08/23] magnesium glycinate 100 mg tablet (Mag Glycinate) 100 mg PO BID 09/08/23 [History Confirmed 09/08/23] metoprolol succinate 50 mg tablet,extended release 24 hr 50 mg PO QHS 09/08/23 [History Confirmed 09/08/23] mycophenolate sodium 360 mg tablet,delayed release (Myfortic) 720 mg PO DAILY 09/08/23 [History Confirmed 09/08/23] omeprazole 20 mg capsule,delayed release 20 mg PO DAILY 09/08/23 [History Confirmed 09/08/23] orphenadrine citrate 100 mg tablet,extended release 100 mg PO BID 09/08/23 [History Confirmed 09/08/23] oxycodone-acetaminophen 5 mg-325 mg tablet 1 tab PO Q4HR PRN pain 09/08/23 [History Confirmed 09/08/23] potassium chloride 20 mEq tablet,extended release 20 meq PO DAILY 09/08/23 [History Confirmed 09/08/23] protein supplement 1 ea PO .three times a week 09/08/23 [History Confirmed 09/08/23] Active Medications Alprazolam (Alprazolam 0.25 Mg Tablet) 0.25 mg PO QHS PRN PRN Reason: sleep Stop: 03/06/24 15:43 Dextrose (Dextrose 50% In Water 25 Gm/50 Ml Syringe) 0 gm IV-PUSH PRN PRN PRN Reason: Hypoglycemia Stop: 09/07/24 17:35 Escitalopram Oxalate (Escitalopram 5 Mg Tablet) 15 mg PO DAILY SERENA Stop: 09/08/24 08:59 Gentamicin Sulfate (Gentamicin 0.1% Cream 15 Gm Tube) 1 applic TOPICAL DAILY SERENA Stop: 09/08/24 08:59 Hydromorphone HCl (Hydromorphone 0.5 Mg/0.5 Ml Syringe) 0.5 mg IV-PUSH Q5M PRN PRN Reason: Pain Stop: 09/08/23 20:57 Ertapenem 0.5 gm/ Sodium (Chloride) 100 mls @ 200 mls/hr IV Q24H SERENA Stop: 09/07/24 20:59 Metoprolol Succinate (Metoprolol Succinate 50 Mg Tab.Er.24h) 50 mg PO QHS SERENA Stop: 09/07/24 21:59 Morphine Sulfate (Morphine Sulfate 2 Mg/Ml Vial) 2 mg IV-PUSH Q4H PRN PRN Reason: Pain Scale 7 - 10 Mycophenolate Sodium (Mycophenolate Sodium *Nf* 360 Mg Tablet.Dr) 720 mg PO DAILY SERENA Stop: 09/08/24 08:59 Non-Formulary Medication (Calcium Acetate) 667 mg PO TID SERENA Stop: 09/07/24 21:59 Non-Formulary Medication (Cyclosporine) 75 mg PO DAILY SERENA Stop: 09/08/24 08:59 Non-Formulary Medication (Epoetin Mariano [Epogen]) 10,000 unit SUBCUT .weekly SERENA Stop: 09/07/24 15:44 Non-Formulary Medication (Levothyroxine) 75 mcg PO DAILY SERENA Stop: 09/08/24 08:59 Non-Formulary Medication (Magnesium Glycinate [Mag Glycinate]) 100 mg PO BID SERENA Stop: 09/07/24 20:59 Ondansetron HCl (Ondansetron 4 Mg/2 Ml Vial) 4 mg IV-PUSH Q6H PRN PRN Reason: Nausea And Vomiting Stop: 09/07/24 15:48 Oxycodone/Acetaminophen (Oxycodone/Acetaminophen 5-325 Mg Tablet) 1 tab PO [id number] PRN Reason: pain Pantoprazole Sodium (Pantoprazole 40 Mg Vial) 40 mg IV-PUSH DAILY SERENA Stop: 09/08/24 08:59 Phytonadione (Phytonadione 5 Mg Tablet) 5 mg PO DAILY SERENA Stop: 09/09/23 09:01 Potassium Chloride (Potassium Chloride Er 20 Meq Tab.Er.Prt) 40 meq PO DAILY PRN PRN Reason: Hypokalemia Stop: 09/07/24 15:48 Sodium Chloride (Sodium Chloride 0.9 % 10 Ml Syringe) 0 ml IV-PUSH PRN PRN PRN Reason: Flush Stop: 09/07/24 09:51 Last Admin: 09/08/23 10:37 Dose: 10 ml Sodium Chloride (Sodium Chloride 0.9 % 10 Ml Vial.Pf) 10 ml INJECTION DAILY SERENA Stop: 09/08/24 08:59 Sodium Chloride (Sodium Chloride 0.9 % 10 Ml Syringe) 10 ml IV-PUSH PRN PRN PRN Reason: Flush Stop: 09/07/24 15:47 Vancomycin HCl (Vancomycin - Pharmacy Dosing 1 Each Miscell) 1 each IV ONCE PRN; Protocol PRN Reason: ZZ.Pharmacy Consult Exam Physical Exam Vital Signs: Temp Pulse Resp BP Pulse Ox O2 Del Method 97.8 F 115 H 18 115/70 95 Room Air 09/08/23 16:00 09/08/23 16:00 09/08/23 16:00 09/08/23 16:00 09/08/23 16:00 09/08/23 16:00 Narrative: Patient is conversive, she is oriented to person. Her answers to questions are slightly confused. Her family is able to give more reliable information. Her head is atraumatic normocephalic. Her eyes are without any scleral icterus. Her heart is tachycardic. Lungs are clear. Abdomen is soft there is no guarding rebound or rigidity, there is no tenderness on exam. There is absolutely no peritonitis on exam. Peritoneal dialysis catheter is noted there is no purulence draining from around this. No cellulitis or fluctuance. Connector on the end is missing, broken off Results - Gen. Surgery Intake and Output 24 hour I&O: Intake & Output 09/08/23 09/08/23 09/08/23 07:59 15:59 23:59 Intake Total 1500 / 1500 Balance 1500 / 1500 Weight 65.4 kg Labs 09/08/23 10:07 09/08/23 16:11 Laboratory Results - last 72 hr 09/08/23 17:01: POC Glucose 77 09/08/23 16:11: PHA Creatinine Clear 5.11, Sodium 119 L*, Potassium 3.6, Chloride 86 L, Carbon Dioxide 17.8 L, Anion Gap 18.8 H, BUN 65 H, Creatinine 12.64 H D, Est GFR (CKD-EPI) 3.479, Glucose 72, Calcium 6.4 L*, Iron Cancelled, TIBC Cancelled, Iron Saturation Cancelled, Transferrin Cancelled, Ferritin Cancelled, Vitamin B12 Cancelled, Folate Cancelled 09/08/23 13:42: POC Glucose 147 09/08/23 12:31: POC Glucose 173 09/08/23 11:16: POC Glucose 156 09/08/23 10:33: Ammonia 56 H 09/08/23 10:07: Corrected WBC 40.3 H, Uncorrected WBC Count 40.3 H, RBC 2.57 L, Hgb 7.3 L, Hct 22.9 L, MCV 89.1, MCH 28.5, MCHC 32.0, RDW 16.5 H, Plt Count 258,MPV 7.9, Neut % (Auto) N/A, Lymph % (Auto) N/A, [place] % (Auto) N/A, Eos % (Auto) N/A, Baso % (Auto) N/A, Nucleat RBC Rel Count N/A, Neut # (Auto) N/A, Lymph # (Auto) N/A, [place] # (Auto) N/A, Eos # (Auto) N/A, Baso # (Auto) N/A, Lymphocytes % 1 L, Monocytes % 3, Segmented Neutrophils 96 H, Monocyte Dist Width Test not performed, Toxic Granulation Marked, Toxic Vacuolation Slight, Platelet EstimateNormal, Plt Morphology Comment Normal, RBC Morphology N/A, Polychromasia Slight,Hypochromasia Slight, Anisocytosis Slight, Target Cells Slight, PT 15.9 H, INR 1.4, APTT 35.4, PHA Creatinine Clear N/A, Sodium 117 L*, Potassium 3.7, [id number] L, Carbon Dioxide 20.6 L, Anion Gap 22.1 H, BUN 69 H, Creatinine 13.93 H, EstGFR (CKD-EPI) 3.096, Glucose 28 L*, Lactic Acid 1.1, Calcium 7.2 L, Total Bilirubin 1.1 H, Direct Bilirubin 0.60 H, Indirect Bilirubin 0.5, AST 162 H, ALT47, Alkaline Phosphatase 231 H, Total Creatine Kinase 4632 H, Troponin I High Sens 34.7 H, B-Natriuretic Peptide 130.0 H, Total Protein 5.3 L, Albumin 2.5 L, Globulin 2.8, Albumin/Globulin Ratio 0.9, Ethyl Alcohol < 10, % Ethyl Alcohol TNP A&P - General Surgery (1) History of peritoneal dialysis: (2) Leucocytosis: (3) Liver transplant status: (4) Peritoneal dialysis catheter mechanical complication: (5) Alcohol abuse: (6) Sepsis: Plan Patient has a host of significant problems, may have infection secondary to damage peritoneal dialysis catheter. With her mental status change and tachycardia and leukocytosis agree with nephrology for removal of catheter. I discussed with the patient at length and I discussed with her family who is at bedside. I discussed with him the procedure and the risks and the potential complications. I discussed with them that she is an extremely sick person with very high risk of mortality. Will proceed for removal this evening. Will be done under sedation as she would not tolerate this under local anesthesia. Hemodialysis catheter will be placed by vascular surgery, as her potassium is normal they are planning on that tomorrow Documented By: Hal Mejia DO 09/08/231808 Signed By: <Electronically signed by DO Hal Mejia> 09/08/231816 [facility] Work Phone: [phone] Consult note Author Tima Lara [facility] September 08, 2023 5:08pm Note Date/Time September 08, 2023 4:[address] [facility] [address] [place] [address] Nephrology Consult Note Signed Patient: Winnie Cai MR#: [id number] : 1985 Acct:[id number] Age/Sex: 38 / F Adm Date: 4 Loc: Room: [address] [place] [address] Type: ADM IN Attending Dr: Tani Meehan MD Copies to: NON STAFF MD Tani Marti MD~ Providers Consult Date: 09/08/23 Requesting Provider: Hortensia Cordero MD Primary Care Provider: NON STAFF [facility] Reason for Consult: Management of ESRD and dialysis during hospital stay History of Present Illness: Ms. 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 PD was started at [place] however he moved to [place] closer to her home. She has a history of liver transplant due to alcoholic liver cirrhosis at [facility] 2014. She did require hemodialysis in the perioperative period and later on was transitioned to PD. Patient has been noncompliant with peritoneal dialysis and missing multiple treatments at home per her records. Patient was brought to the ER on 09/07 as she has been significantly weak and dehydrated. Patient sustained a fall after she tripped last week and went to [facility] ER but she was found to have fracture of the right head of humerus. Right hand currently in sling dressing she is supposed to see orthopedics as outpatient. Patient was not able to do peritoneal dialysis at home since she has limited mobility of the right arm. Patient reported that she has not been eating or drinking over the last few days. Evaluation in the ER showed large hematoma around the shoulder and the chest. She was tachycardic 111 however blood pressure 115/73. No fever or chills. WBCs count was found to be [id number]. Patient was started empirically on vancomycin and Zosyn after 2 sets ofblood culture was obtained. Hemoglobin was low 7.3 compared to 10 g/dL on . She has mildly elevated INR 1.4 despite she is not on any blood thinners medication. There is a report by nursing staff that patient still drinking vodka however it does not confirm. Ethyl alcohol level on admission was less than 10 mg/dL. Patient denies any fever or chills. When I did examine PD catheter exit, it wasbroken with missing transfer set. Exit site has erythema more than 13 mm with exposure of exterior cuff. Patient has diffuse abdominal and chest tenderness after fall however there is no rebound. CT scan of the abdomen showed no significant pertinent fluid inside to drain since patient has not been able to do PD exchanges over the last few days. The current catheter cannot be used to get fluid in and out for culture or Gram stain. Her main symptom is generalized weakness and pain all over the ribs and the right arm. She barely makes urine output with no dysuria frequency or hematuria. No cough or expectoration. No nausea or vomiting. She has poor appetite Review of Systems Review of Systems All other systems reviewed & are negative unless noted below or in HPI [facility] Medical History (Updated 09/08/23 @ 16:57 by Tima Lara MD) History of shoulder fracture right History of peritoneal dialysis Family History (Updated 09/16/22 @ 14:20 by Provider Conversion) Family/Other Legacy FamHx Problem: SISTER IS NON MEDICAL:NO CHILDREN Social History Smoking Status: Current every day smoker Tobacco Type: cigarettes Substance Use Type: Marijuana Substance Abuse Comment: Pt. smokes marijuana a couple times a day Meds Medications & Allergies Allergies fish oil Allergy (Unknown, Verified 09/08/23 09:53) Unknown Reaction Penicillins Allergy (Unknown, Verified 09/08/23 09:53) Unknown Reaction Sulfa (Sulfonamide Antibiotics) Allergy (Unknown, Verified 09/08/23 09:53) Unknown Reaction sulfamethoxazole [From Bactrim] Allergy (Verified 09/08/23 09:53) Unknown Reaction trimethoprim [From Bactrim] Allergy (Verified 09/08/23 09:53) Unknown Reaction Home Medications alprazolam 0.25 mg tablet 0.25 mg PO QHS PRN sleep 09/08/23 [History Confirmed 09/08/23] calcium acetate 667 mg tablet 667 mg PO TID 09/08/23 [History Confirmed 09/08/23] cyclosporine 100 mg capsule 75 mg PO DAILY 09/08/23 [History Confirmed 09/08/23] epoetin mariano 10,000 unit/mL injection solution (Epogen) 10,000 unit subcut .weekly 09/08/23 [History Confirmed 09/08/23] escitalopram oxalate 5 mg tablet (Lexapro) 15 mg PO DAILY 09/08/23 [History Confirmed 09/08/23] gentamicin 0.1 % topical cream 1 applic topical DAILY 09/08/23 [History Confirmed 09/08/23] levothyroxine 75 mcg capsule 75 mcg PO DAILY 09/08/23 [History Confirmed 09/08/23] losartan 50 mg tablet 50 mg PO QHS 09/08/23 [History Confirmed 09/08/23] magnesium glycinate 100 mg tablet (Mag Glycinate) 100 mg PO BID 09/08/23 [History Confirmed 09/08/23] metoprolol succinate 50 mg tablet,extended release 24 hr 50 mg PO QHS 09/08/23 [History Confirmed 09/08/23] mycophenolate sodium 360 mg tablet,delayed release (Myfortic) 720 mg PO DAILY 09/08/23 [History Confirmed 09/08/23] omeprazole 20 mg capsule,delayed release 20 mg PO DAILY 09/08/23 [History Confirmed 09/08/23] orphenadrine citrate 100 mg tablet,extended release 100 mg PO BID 09/08/23 [History Confirmed 09/08/23] oxycodone-acetaminophen 5 mg-325 mg tablet 1 tab PO Q4HR PRN pain 09/08/23 [History Confirmed 09/08/23] potassium chloride 20 mEq tablet,extended release 20 meq PO DAILY 09/08/23 [History Confirmed 09/08/23] protein supplement 1 ea PO .three times a week 09/08/23 [History Confirmed 09/08/23] Active Medications: Active Medications Alprazolam (Alprazolam 0.25 Mg Tablet) 0.25 mg PO QHS PRN PRN Reason: sleep Stop: 03/06/24 15:43 Escitalopram Oxalate (Escitalopram 5 Mg Tablet) 15 mg PO DAILY SERENA Stop: 09/08/24 08:59 Gentamicin Sulfate (Gentamicin 0.1% Cream 15 Gm Tube) 1 applic TOPICAL DAILY SERENA Stop: 09/08/24 08:59 Metoprolol Succinate (Metoprolol Succinate 50 Mg Tab.Er.24h) 50 mg PO QHS SERENA Stop: 09/07/24 21:59 Morphine Sulfate (Morphine Sulfate 2 Mg/Ml Vial) 2 mg IV-PUSH Q4H PRN PRN Reason: Pain Scale 7 - 10 Mycophenolate Sodium (Mycophenolate Sodium *Nf* 360 Mg Tablet.) 720 mg PO DAILY SERENA Stop: 09/08/24 08:59 Non-Formulary Medication (Calcium Acetate) 667 mg PO TID SERENA Stop: 09/07/24 21:59 Non-Formulary Medication (Cyclosporine) 75 mg PO DAILY SERENA Stop: 09/08/24 08:59 Non-Formulary Medication (Epoetin Mariano [Epogen]) 10,000 unit SUBCUT .weekly SERENA Stop: 09/07/24 15:44 Non-Formulary Medication (Levothyroxine) 75 mcg PO DAILY SERENA Stop: 09/08/24 08:59 Non-Formulary Medication (Magnesium Glycinate [Mag Glycinate]) 100 mg PO BID SERENA Stop: 09/07/24 20:59 Ondansetron HCl (Ondansetron 4 Mg/2 Ml Vial) 4 mg IV-PUSH Q6H PRN PRN Reason: Nausea And Vomiting Stop: 09/07/24 15:48 Oxycodone/Acetaminophen (Oxycodone/Acetaminophen 5-325 Mg Tablet) 1 tab PO [id number] PRN Reason: pain Pantoprazole Sodium (Pantoprazole 40 Mg Vial) 40 mg IV-PUSH DAILY SERENA Stop: 09/08/24 08:59 Potassium Chloride (Potassium Chloride Er 20 Meq Tab.Er.Prt) 40 meq PO DAILY PRN PRN Reason: Hypokalemia Stop: 09/07/24 15:48 Sodium Chloride (Sodium Chloride 0.9 % 10 Ml Syringe) 0 ml IV-PUSH PRN PRN PRN Reason: Flush Stop: 09/07/24 09:51 Last Admin: 09/08/23 10:37 Dose: 10 ml Sodium Chloride (Sodium Chloride 0.9 % 10 Ml Vial.Pf) 10 ml INJECTION PRN PRN PRN Reason: Dilution Stop: 09/07/24 15:47 Sodium Chloride (Sodium Chloride 0.9 % 10 Ml Syringe) 10 ml IV-PUSH PRN PRN PRN Reason: Flush Stop: 09/07/24 15:47 Exam Physical Exam Vital Signs: Temp Pulse Resp BP Pulse Ox O2 Del Method 36.7 C 111 H 18 115/73 96 Room Air 09/08/23 13:48 09/08/23 13:48 09/08/23 13:48 09/08/23 13:48 09/08/23 13:48 09/08/23 13:48 Narrative: Constitutional: Looks ill with discomfort related to hematoma and flexion of right humerus. HEENT: She has significant pallor. No jaundice or cyanosis. Mucous membranes are dry. Cardiovascular: RRR, tachycardic, normal S1-S2, no gallop or rub, No JVD Respiratory: Good bilateral air entry no wheezing or crackles Gastrointestinal: Soft, non tender, positive bowel sounds. PD catheter exit site on the left lower quadrant with surrounding erythema. The catheter itself is broken with no transfer set. Catheter tip covered with tape not even a clamp. Extremities: No edema Skin: Large hematoma over the right arm extending to the chest Musculoskeletal: No joints swellings or inflammation Neurology: Awake, alert, oriented ?3, No focal motor or sensory deficits Psych: Normal mood and affect Results - Nephrology Labs 09/08/23 10:07 09/08/23 10:07 Labs: 09/08/23 10:07 BUN 69 H Creatinine 13.93 H Albumin 2.5 L Radiology Impressions Impressions - last 24 hours: Impressions Chest X-Ray 09/08/23 10:03 IMPRESSION: No acute cardiopulmonary pathology. There is a fracture of the head and neck of the proximal humerus on the right. Impression dictated by: Sp Germain M.D.09/08/2023 10:25 AM Dictation Location: [facility]12 Abdomen/Pelvis CT 09/08/23 10:36 IMPRESSION: There is diffuse wall thickening within the colon with accompanying pericolonic fat stranding. This is consistent with colitis which may be infectious or inflammatory. A small amount of peritoneal free fluid is noted with a peritoneal dialysis catheter in the left lower quadrant. There is extensive previous liver transplant. Additional chronic findings are noted, as above. Impression dictated by: Sp Germain M.D.09/08/2023 12:10 PM Dictation Location: [facility] 09/08/23 10:36 IMPRESSION: No acute intracranial pathology. Impression dictated by: Sp Germain M.D.09/08/2023 12:02 PM Dictation Location: [facility]12 Any impression(s) listed above is documentation that was entered by the reading physician into a diagnostic report(s) for Winnie Cai. I have reviewed the report(s) and am incorporating any findings in the treatment plan of this patient where applicable. 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 Patient had REED at the time of liver transplant as well and she did require short period of hemodialysis. Patient is currently on peritoneal dialysis however she is not able to do peritoneal dialysis related toweakness and right arm fracture. Patient has history of noncompliance with PD as well. PD catheter is broken with no transfer set and it is not usable to resume personal dialysis or even get 1 PD exchange for Gram stain and culture. (2) Leucocytosis: Assessment/Problem Details: Patient has leukocytosis 40,000 with broken PD catheter and evidence of PD catheter exit site erythema and infection. Possibility of peritonitis cannot beexcluded however patient does not have documented fluid in the abdomen at this point to drain for Gram stain and culture. Current PD catheter is not usable aswell. (3) Anemia of renal disease: Assessment/Problem Details: Patient has significant drop of hemoglobin over the last week after fall and right humerus fracture. She has large hematoma over the right arm and chest. INR also mildly elevated. Last hemoglobin was 10 g/dL on August 19 (4) Rhabdomyolysis: Assessment/Problem Details: Patient has elevated CPK with mild rhabdomyolysis s/p fall. (5) History of shoulder fracture: Assessment/Problem Details: Patient has right humerus fracture s/p fall after she tripped at home. (6) Liver transplant status: Assessment/Problem Details: Patient status post liver transplant at [facility] on October 2014. She has mild elevated AST however ALT and bilirubin are normal. There is question that the patient still drinking vodka however is not confirmed. INR is elevated. Plan * Unfortunately, PD catheter is not usable and need to be removed since it is broken and the cuff is exposed. Considering her right arm fracture and the patient is not able to perform peritoneal dialysis at home at this point while she is living by herself, will switch to hemodialysis for the next few weeks till healing of the right arm. * Consult general surgery for PD catheter removal and send PD catheter tip for culture and sensitivity * Patient does not need urgent hemodialysis at this point since she has no volume overload, acidosis or hyperkalemia. Will follow-up on the blood culture and if it is negative, will proceed with tunneled hemodialysis catheter otherwise patient will need temporary hemodialysis catheter till resolution of infection and leukocytosis. * Continue vancomycin and Zosyn pending the result of blood culture and PD catheter tip culture after removal. * Since INR is elevated 1.4 with hemoglobin down to 7.3 g/dL, I will give oral vitamin K 5 mg daily x 2 doses. * Continue current transplant medications including mycophenolate 750 mg p.o. daily and cyclosporine 75 mg p.o. daily. Plan of care was discussed with Dr. Cordero I appreciate this consultation we will be happy to follow the patient with you during hospital stay. This document was dictated utilizing computerized voice recognition technology. Errors in grammar, spelling, and or syntax may be noted. The creator of this document does not proofread for this. Documented By: Tima Lara MD 09/08/23 2076 Signed By: <Electronically signed by MD Tima Lara> 09/08/23 5820 [facility] Work Phone: [phone] Miscellaneous Notes* Telephone Encounter - Mikel Quintanilla RN - 10/30/2022 3:20 PM EDT Pt aware of BR message and denies any additional questions, needs or concerns at this time. 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 Yassine Harry documented in this encounterCenterville05-16-2023 NoteHNO ID: [id number] Author: Roberto Pollack MD Service: ? Author Type: Physician Type: Progress Notes Filed: 10/09/2022 9:39 AM Note Text: PATIENT NAME: Winnie Cai DATE: 10/08/2022 PRIMARY CARE PHYSICIAN: Dr. Mau Pantoja OTHER PHYSICIANS: [facility] Portions of this encounter note have been copied from my note from 08/13/2022 and has been updated where appropriate, and reflect my current medical decision making from today. CC: This is a 37 year old female with a history of liver failure status post liver transplant and chronic renal failure on peritoneal dialysis, seen for scheduled follow-up of chronic anemia. INTERIM HISTORY: Since the patient's last visit here she has remained on Epogen 40,000 units subcu weekly plus folic acid 1 mg daily. With this treatment her anemia has completely resolved. She has had no other significant medical changes. Currently she feels well with no particular complaints. MEDICATIONS: potassium chloride ER (KLOR-CON) 20 mEq tablet Take 20 mEq by mouth once daily. folic acid 1 mg tablet Take 2 tablets by mouth once daily. ALPRAZolam (XANAX) 0.25 mg tablet Take 0.25 mg by mouth. calcium acetate,phosphat bind, (PHOSLO) 667 mg capsule Calcium Acetate(Phosphat Bind) Active 50 MG PO 3X/Day with lunch,supper AND HS July 10, 2022 12:00am escitalopram oxalate (LEXAPRO) 5 mg tablet Take 3 tablets by mouth once daily. furosemide (LASIX) 40 mg tablet Take 40 mg by mouth. levothyroxine (SYNTHROID) 75 mcg tablet Levothyroxine Active 75 MCG PO Daily July 31, 2020 12:00am losartan (COZAAR) 25 mg tablet Take 25 mg by mouth. metoprolol succinate ER (TOPROL XL) 25 mg 24 hr tablet Take 1 tablet by mouth once daily. omeprazole (PRILOSEC) 20 mg capsule Omeprazole Active 20 MG PO Daily July 31, 2020 12:00am ondansetron orally disintegrating (ZOFRAN ODT) 4 mg disintegrating tablet Ondansetron Active 4 MG PO Q8H July 10, 2022 12:00am diphenhydrAMINE (BENADRYL) 25 mg tablet Take 25 mg by mouth. cycloSPORINE modified (NEORAL,GENGRAF) 25 mg capsule Take 75 mg by mouth. mycophenolate sodium DR (MYFORTIC) 180 mg EC tablet ALLERGIES: Shellfish Containing Products, Fish Containing Products, Penicillins, Sulfa (Sulfonamide Antibiotics), Sulfamethoxazole, Sulfamethoxazole-Trimethoprim, and Trimethoprim PAST MEDICAL HISTORY: PAST MEDICAL HISTORY Diagnosis Date Anemia ESRD (end stage renal disease) (HCC) GERD (gastroesophageal reflux disease) Hyperparathyroidism (HCC) Hypertension Hypothyroidism PAST SURGICAL HISTORY: PAST SURGICAL HISTORY Procedure Laterality Date APPENDECTOMY LAPAROSCOPIC SPLENECTOMY LIVER TRANSPLANT HX REMOVAL GALLBLADDER REVIEW OF SYSTEMS: GENERAL: No weight loss, malaise or fevers. HEENT: Negative for frequent or significant headaches, No changes in hearing or vision, no nose bleeds or other nasal problems RESPIRATORY: Negative for cough, wheezing or shortness of breath. CARDIOVASCULAR: Negative for chest pain, leg swelling or palpitations. GI: Negative for abdominal discomfort, blood in stools or black stools or change in bowel habits : No history of dysuria, frequency or incontinence MUSCULOSKELETAL: Negative for: joint pain or swelling, back pain and muscle pain SKIN: Negative for lesions, rash, and itching. HEMATOLOGY/LYMPHOLOGY: Negative for prolonged bleeding, bruising easily or swollen nodes. NEURO: No history of headaches, syncope, paralysis, seizures or tremors PHYSICAL EXAM: Vitals: BP 96/68 Pulse 78 Temp 36.7 ?C (98.1 ?F) (Temporal) Resp 16 Ht 162.6 cm (5' 4.02 ) Wt 66 kg (145 lb 9.6 oz) SpO2 99% BMI 24.98 kg/m? General appearance: well appearing, alert, in no acute distress, well-hydrated, well nourished Skin: skin color, texture, turgor normal, no suspicious rashes or lesions Head: normal Eyes: Anicteric sclera. Pupils are equally round and reactive to light. Extraocular movements are intact. Ears: negative findings: external ears normal to inspection and palpation Oropharynx: negative Neck: Supple, no adenopathy; thyroid symmetric, normal size Lymph Nodes: No Submandibular, cervical, supraclavicular, axillary, or inguinal lymphadenopathy present Breast: NL Symmetry, No Masses/Tenderness/Discharge, No Skin Changes Back: no tenderness to palpation Lungs: clear to auscultation, no wheezing or rhonchi Heart: Negative. RRR without murmur, gallop, or rubs. No ectopy. Abdomen: Normal abdominal exam, Abdomen soft, non-tender. Bowel sounds normal. No masses, organomegaly Rectal: Not done Extremities: Extremities normal. No deformities, edema, or skin discoloration. Good capillary refill. Musculoskeletal: No joint swelling, deformity, or tenderness. Peripheral pulses: Normal LABORATORY DATA: Hemoglobin (g/dL) Date Value 10/08/2022 11.0 Hematocrit (%) Date Value 10/08/2022 33.2 WBC (k/uL) Date Value 10/09/19 (more content not included)...[facility]03-21-2023 Note HNO ID: [id number] Author: Roberto Pollack MD Service: ? Author Type: Physician Type: Progress Notes Filed: 08/14/2022 10:15 AM Note Text: PATIENT NAME: Winnie Cai DATE: 08/13/2022 PRIMARY CARE PHYSICIAN: Dr. Mau Pantoja OTHER PHYSICIANS: [facility] Portions of this encounter note have been copied from my note from 07/16/2022 and has been updated where appropriate, and reflect my current medical decision making from today. CC: This is a 37 year old female with a history of liver failure status post liver transplant and chronic renal failure on peritoneal dialysis, seen for scheduled follow-up of chronic anemia. INTERIM HISTORY: Since the patient's last visit here she resumed Epogen 40,000 units subcu weekly, which she self administers. She is tolerating it well. Since then she has felt much better. Recent labs revealed improvement of her anemia. Due to a low folic acid level she was also prescribed folic acid 1 mg twice daily, but admits to being noncompliant. She has had no evidence of bleeding. Overall she feels quite well today with no particular complaints. MEDICATIONS: folic acid 1 mg tablet Take 2 tablets by mouth once daily. ALPRAZolam (XANAX) 0.25 mg tablet Take 0.25 mg by mouth. calcium acetate,phosphat bind, (PHOSLO) 667 mg capsule Calcium Acetate(Phosphat Bind) Active 50 MG PO 3X/Day with lunch,supper AND HS July 10, 2022 12:00am escitalopram oxalate (LEXAPRO) 5 mg tablet Take 3 tablets by mouth once daily. furosemide (LASIX) 40 mg tablet Take 40 mg by mouth. levothyroxine (SYNTHROID) 75 mcg tablet Levothyroxine Active 75 MCG PO Daily July 31, 2020 12:00am losartan (COZAAR) 25 mg tablet Take 25 mg by mouth. metoprolol succinate ER (TOPROL XL) 25 mg 24 hr tablet Take 1 tablet by mouth once daily. omeprazole (PRILOSEC) 20 mg capsule Omeprazole Active 20 MG PO Daily July 31, 2020 12:00am ondansetron orally disintegrating (ZOFRAN ODT) 4 mg disintegrating tablet Ondansetron Active 4 MG PO Q8H July 10, 2022 12:00am diphenhydrAMINE (BENADRYL) 25 mg tablet Take 25 mg by mouth. cycloSPORINE modified (NEORAL,GENGRAF) 25 mg capsule Take 75 mg by mouth. mycophenolate sodium DR (MYFORTIC) 180 mg EC tablet ALLERGIES: Shellfish Containing Products, Fish Containing Products, Penicillins, Sulfa (Sulfonamide Antibiotics), Sulfamethoxazole, Sulfamethoxazole-Trimethoprim, and Trimethoprim PAST MEDICAL HISTORY: PAST MEDICAL HISTORY Diagnosis Date Anemia ESRD (end stage renal disease) (HCC) GERD (gastroesophageal reflux disease) Hyperparathyroidism (HCC) Hypertension Hypothyroidism PAST SURGICAL HISTORY: PAST SURGICAL HISTORY Procedure Laterality Date APPENDECTOMY LAPAROSCOPIC SPLENECTOMY LIVER TRANSPLANT HX REMOVAL GALLBLADDER REVIEW OF SYSTEMS: GENERAL: No weight loss, malaise or fevers. HEENT: Negative for frequent or significant headaches, No changes in hearing or vision, no nose bleeds or other nasal problems RESPIRATORY: Negative for cough, wheezing or shortness of breath. CARDIOVASCULAR: Negative for chest pain, leg swelling or palpitations. GI: Negative for abdominal discomfort, blood in stools or black stools or change in bowel habits : No history of dysuria, frequency or incontinence MUSCULOSKELETAL: Negative for: joint pain or swelling, back pain and muscle pain SKIN: Negative for lesions, rash, and itching. HEMATOLOGY/LYMPHOLOGY: Negative for prolonged bleeding, bruising easily or swollen nodes. NEURO: No history of headaches, syncope, paralysis, seizures or tremors PHYSICAL EXAM: Vitals: BP (!) 93/49 Pulse 79 Temp 36.2 ?C (97.2 ?F) (Temporal) Resp 18 Ht 162.6 cm (5' 4.02 ) Wt 65.3 kg (144 lb) SpO2 96% BMI 24.71 kg/m? General appearance: well appearing, alert, in no acute distress, well-hydrated, well nourished Skin: skin color, texture, turgor normal, no suspicious rashes or lesions Head: normal Eyes: Anicteric sclera. Pupils are equally round and reactive to light. Extraocular movements are intact. Ears: negative findings: external ears normal to inspection and palpation Oropharynx: negative Neck: Supple, no adenopathy; thyroid symmetric, normal size Lymph Nodes: No Submandibular, cervical, supraclavicular, axillary, or inguinal lymphadenopathy present Breast: NL Symmetry, No Masses/Tenderness/Discharge, No Skin Changes Back: no tenderness to palpation Lungs: clear to auscultation, no wheezing or rhonchi Heart: Negative. RRR without murmur, gallop, or rubs. No ectopy. Abdomen: Normal abdominal exam, Abdomen soft, non-tender. Bowel sounds normal. No masses, organomegaly Rectal: Not done Extremities: Extremities normal. No deformities, edema, or skin discoloration. Good capillary refill. Musculoskeletal: No joint swelling, deformity, or tenderness. Peripheral pulses: Normal LABORATORY DATA: Hemoglobin (g/dL) Date Value 08/13/2022 9.3 H (more content not included)...[facility]03-13-2023 Miscellaneous Notes* Telephone Encounter - Pippa Flores RN - 08/05/2022 2:26 PM EDT Patient calling for refill of Folic acid. States we increased her from 1 daily to 2 daily. Therefore, she needs a new script. Script pended, please sign if agreeable. Pippa Flores RN' documented in this encounterCenterville02-21-2023 NoteHNO ID: [id number] Author: Roberto Pollack MD Service: ? Author Type: Physician Type: Progress Notes Filed: 07/17/2022 1:25 PM Note Text: PATIENT NAME: Winnie Cai DATE: 07/16/2022 PRIMARY CARE PHYSICIAN: Dr. Mau Pantoja OTHER PHYSICIANS: [facility] CC: This is a 37 year old female with a history of liver failure status post liver transplant and chronic renal failure on peritoneal dialysis, seen for follow-up after recent hospitalization for severe anemia. INTERIM HISTORY: The patient was admitted to [facility] on 07/10/2022 after labs obtained as an outpatient revealed severe anemia with a hemoglobin of 6.5. She is on peritoneal dialysis for chronic renal failure and had been on ESAs since starting dialysis. Initially she had been on Epogen 40,000 units weekly which she self administered. Apparently the BLAISE was changed to Mircera, and she received her first injection at the nephrology clinic in May. The patient was feeling well when outpatient labs revealed severe anemia. She had no fevers or signs of infection and no evidence of bleeding. After admission she received PRBC x2 and her hemoglobin returned to baseline. Additional labs when hospitalized revealed a slightly low folic acid level, otherwise were nondiagnostic. However, iron studies were abnormal with a markedly elevated ferritin and elevated percent saturation. Stools for occult blood were negative, and GI evaluation with upper and lower endoscopy revealed no evidence of occult GI bleeding. (EGD was normal. Colonoscopy revealed a small rectal polyp which was removed.) The patient was discharged on 07/12/2022 with a hemoglobin of 10.4. Since discharge she has had no significant medical changes. Currently feels well with no particular complaints. No evidence of bleeding or significant bruising. No fevers or signs of infection. MEDICATIONS: No prescriptions on file. ALLERGIES: Sulfa (Sulfonamide Antibiotics), Sulfamethoxazole, and Trimethoprim PAST MEDICAL HISTORY: PAST MEDICAL HISTORY Diagnosis Date Anemia ESRD (end stage renal disease) (HCC) GERD (gastroesophageal reflux disease) Hyperparathyroidism (HCC) Hypertension Hypothyroidism PAST SURGICAL HISTORY: PAST SURGICAL HISTORY Procedure Laterality Date APPENDECTOMY LAPAROSCOPIC SPLENECTOMY LIVER TRANSPLANT HX REMOVAL GALLBLADDER REVIEW OF SYSTEMS: GENERAL: No weight loss, malaise or fevers. HEENT: Negative for frequent or significant headaches, No changes in hearing or vision, no nose bleeds or other nasal problems RESPIRATORY: Negative for cough, wheezing or shortness of breath. CARDIOVASCULAR: Negative for chest pain, leg swelling or palpitations. GI: Negative for abdominal discomfort, blood in stools or black stools or change in bowel habits : No history of dysuria, frequency or incontinence MUSCULOSKELETAL: Negative for: joint pain or swelling, back pain and muscle pain SKIN: Negative for lesions, rash, and itching. HEMATOLOGY/LYMPHOLOGY: Negative for prolonged bleeding, bruising easily or swollen nodes. NEURO: No history of headaches, syncope, paralysis, seizures or tremors PHYSICAL EXAM: Vitals: BP 117/78 Pulse 68 Temp 36.4 ?C (97.5 ?F) (Temporal) Resp 18 Ht 162.6 cm (5' 4 ) Wt 66 kg (145 lb 6.4 oz) BMI 24.96 kg/m? General appearance: well appearing, alert, in no acute distress, well-hydrated, well nourished Skin: skin color, texture, turgor normal, no suspicious rashes or lesions Head: normal Eyes: Anicteric sclera. Pupils are equally round and reactive to light. Extraocular movements are intact. Ears: negative findings: external ears normal to inspection and palpation Oropharynx: negative Neck: Supple, no adenopathy; thyroid symmetric, normal size Lymph Nodes: No Submandibular, cervical, supraclavicular, axillary, or inguinal lymphadenopathy present Breast: NL Symmetry, No Masses/Tenderness/Discharge, No Skin Changes Back: no tenderness to palpation Lungs: clear to auscultation, no wheezing or rhonchi Heart: Negative. RRR without murmur, gallop, or rubs. No ectopy. Abdomen: Normal abdominal exam, Abdomen soft, non-tender. Bowel sounds normal. No masses, organomegaly Rectal: Not done Extremities: Extremities normal. No deformities, edema, or skin discoloration. Good capillary refill. Musculoskeletal: No joint swelling, deformity, or tenderness. Peripheral pulses: Normal LABORATORY DATA: Hemoglobin (g/dL) Date Value 07/16/2022 9.7 Hematocrit (%) Date Value 07/16/2022 30.2 WBC (k/uL) Date Value 07/16/2022 8.63 Platelet Count (k/uL) Date Value 07/16/2022 288 ASSESSMENT/PLAN: 1. Anemia due to chronic kidney disease, on chronic dialysis (HCC) - ICD9: 585.6, 285.21, V45.11, ICD10: N18.6, D63.1, Z99.2 (primary diagnosis) The patient has chronic anemia secondary to end-stage renal disease. Since starting dialysis April 2021 she had been on BLAISE wi (more content not included)...[facility]02-21-2023 History of Present illness Narrative* Roberto Pollack MD - 07/16/2022 7:09 AM EST PATIENT NAME: Winnie Cai DATE: 07/16/2022 PRIMARY CARE PHYSICIAN: Dr. Mau Pantoja OTHER PHYSICIANS: [facility] CC: This is a 37 year old female with a history of liver failure status post liver transplant and chronic renal failure on peritoneal dialysis, seen for follow-up after recent hospitalization for severe anemia. INTERIM HISTORY: The patient was admitted to [facility] on 07/10/2022 after labs obtained as an outpatientrevealed severe anemia with a hemoglobin of 6.5. She is on peritoneal dialysis for chronic renal failure and had been on ESAs since starting dialysis. Initially she had been on Epogen 40,000 units weekly which she self administered. Apparently the BLAISE was changed to Mircera, and she received her first injection at the nephrology clinic in May. The patient was feeling well when outpatient labsrevealed severe anemia. She had no fevers or signs of infection and no evidence of bleeding. After admission she received PRBC x2 and her hemoglobin returned to baseline. Additional labs when hospital ized revealed a slightly low folic acid level, otherwise were nondiagnostic. However, iron studies were abnormal with a markedly elevated ferritin and elevated percent saturation. Stools for occult blood were negative, and GI evaluation with upper and lower endoscopy revealed no evidence of occult GI bleeding. (EGD was normal. Colonoscopy revealed a small rectal polyp which was removed.) The patient was discharged on 07/12/2022 with a hemoglobin of 10.4. Since discharge she has had no significant medical changes. Currently feels well with no particularcomplaints. No evidence of bleeding or significant bruising. No fevers or signs of infection. MEDICATIONS: No prescriptions on file. ALLERGIES: Sulfa (Sulfonamide Antibiotics), Sulfamethoxazole, and Trimethoprim PAST MEDICAL HISTORY: PAST MEDICAL HISTORY Diagnosis Date Anemia ESRD (end stage renal disease) (HCC) GERD (gastroesophageal reflux disease) Hyperparathyroidism (HCC) Hypertension Hypothyroidism PAST SURGICAL HISTORY: PAST SURGICAL HISTORY Procedure Laterality Date APPENDECTOMY LAPAROSCOPIC SPLENECTOMY LIVER TRANSPLANT HX REMOVAL GALLBLADDER REVIEW OF SYSTEMS: GENERAL: No weight loss, malaise or fevers. HEENT: Negative for frequent or significant headaches, No changes in hearing or vision, no nose bleeds or other nasal problems RESPIRATORY: Negative for cough, wheezing or shortness of breath. CARDIOVASCULAR: Negative for chest pain, leg swelling or palpitations. GI: Negative for abdominal discomfort, blood in stools or black stools or change in bowel habits : No history of dysuria, frequency or incontinence MUSCULOSKELETAL: Negative for: joint pain or swelling, back pain and muscle pain SKIN: Negative for lesions, rash, and itching. HEMATOLOGY/LYMPHOLOGY: Negative for prolonged bleeding, bruising easily or swollen nodes. NEURO: No history of headaches, syncope, paralysis, seizures or tremors PHYSICAL EXAM: Vitals: BP 117/78 Pulse 68 Temp 36.4 C (97.5 F) (Temporal) Resp 18 Ht 162.6 cm (5' 4 ) Wt66 kg (145 lb 6.4 oz) BMI 24.96 kg/m General appearance: well appearing, alert, in no acute distress, well-hydrated, well nourished Skin: skin color, texture, turgor normal, no suspicious rashes or lesions Head: normal Eyes: Anicteric sclera. Pupils are equally round and reactive to light. Extraocular movements are intact. Ears: negative findings: external ears normal to inspection and palpation Oropharynx: negative Neck: Supple, no adenopathy; thyroid symmetric, normal size Lymph Nodes: No Submandibular, cervical, supraclavicular, axillary, or inguinal lymphadenopathy present Breast: NL Symmetry, No Masses/Tenderness/Discharge, No Skin Changes Back: no tenderness to palpation Lungs: clear to auscultation, no wheezing or rhonchi Heart: Negative. RRR without murmur, gallop, or rubs. No ectopy. Abdomen: Normal abdominal exam, Abdomen soft, non-tender. Bowel sounds normal. No masses, organomegaly Rectal: Not done Extremities: Extremities normal. No deformities, edema, or skin discoloration. Good capillary refill. Musculoskeletal: No joint swelling, deformity, or tenderness. Peripheral pulses: Normal LABORATORY DATA: Hemoglobin (g/dL) Date Value 07/16/2022 9.7 Hematocrit (%) Date Value 07/16/2022 30.2 WBC (k/uL) Date Value 07/16/2022 8.63 Platelet Count (k/uL) Date Value 07/16/2022 288 ASSESSMENT/PLAN: 1. Anemia due to chronic kidney disease, on chronic dialysis (HCC) - ICD9: 585.6, 285.21, V45.11, ICD10: N18.6, D63.1, Z99.2 (primary diagnosis) The patient has chronic anemia secondary to end-stage renal disease. Since starting dialysis April 2021 she had been on BLAISE with Epogen 40,000 units subcu weekly. Apparently the BLAISE was changed toMircera in May 2022. She was admitted to [facility] on 07/10/2022 with severe anemia (hemoglobin 6.5).She received PRBC x2 and her hemoglobin returned to baseline. Work-up during hospitalization revealed mild folic acid deficiency, but otherwise no evidence of bleeding, hemolysis, or iron deficiency. Differential diagnosis includes transient bone marrow suppression from an occult etiology, occult bleeding, insufficient BLAISE, or possibly pure red cell aplasia due to anti-BLAISE antibodies. Given her otherwise normal CBC it is unlikely she developed an acute bone marrow disorder. Currently the patient is clinically stable and CBC relatively stable. Options for management were discussed. I suggested she start folic acid 1 mg daily. At the patient's request we will suggest that she resume Epogen 40,000 units subcu weekly as before. I will see jefffranc in 4 weeks for follow-up. If anemia persists after resuming Epogen we will further evaluate asindicated. 2. 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 Peritoneal dialysis started April 2021. Clinically stable on current management. Continue per [facility]. 3. Alcoholic cirrhosis of liver (HCC) - ICD9: 571.2, ICD10: K70.30 History of liver failure, reportedly secondary to alcoholic hepatitis/cirrhosis. Status post liver transplant at [facility] November 2014. Liver function currently stable. [facility]. 4. Iron overload - ICD9: 275.09, ICD10: E83.19 Labs obtained 07/10/2022 revealed an elevated ferritin, elevated serum iron, and elevated percent saturation. Possibly secondary to iron loading anemia +/- chronic liver disease. Hereditary hemochromatosis in the differential diagnosis. We will repeat iron studies today. Further evaluation as indicated if abnormal. Roberto Pollack MD CC: [facility] documented in this encounterCenterville02-17-2023 Progress note Author Pedro Floyd [facility] July 12, 2022 11:59am Note Date/Time July 12, 2022 11:59am [facility] [address] [place] [address] Nephrology Progress Note Signed Patient: Winnie Cai MR#: [id number] : 1985 Acct:[id number] Age/Sex: 37 / F Adm Date: 3 Loc: Room: 9M0898-8 Type: ADM IN Attending Dr: Beba Ng MD Copies to: ~ Date of Service: 07/12/2022 Subjective Subjective Narrative: This is a 37-year-old female with a medical history of ESRD, alcoholic liver cirrhosis s/p liver transplant, anemia, secondary hyperparathyroidism, hypertension and GERD was sent to the emergency room due to the worsening symptomatic anemia. 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 She currently doesa home peritoneal dialysis with [facility]. Patient was found to have a worsening anemia on outpatient labs done by the PCP with hemoglobin 6.9 g/dL. Our office will contact you and then we repeat the hemoglobin was 6.2 g/dL. Patient also reported to have a generalized fatigue so was advised to go to emergency room. Patient labs reviewed from the outpatient dialysis unit that showed her hemoglobin was 11.1 g/dL on April 30, 2022. It dropped down to 9.1 g/dL on June 02. It was repeated this month on July 03 and it was 8.1 g/dL. Patient was receiving Epogen 40,000 unit until April and it was reduced to 34,000 as her hemoglobin was 11.1 g/dL. Due to the worsening anemia the dose of the Epogen was again increased to 40,000 unit in May 2022 but she continues to have a worsening anemia despite high-dose of the Epogen. Patient has been compliant with her dialysis but she missed last night due to sleep and fatigue. Nephrology is consulted for ESRD management during the hospital stay. Interval history Patient was seen and examined at bedside. She is still feeling weak but denies any chest with palpation cough nausea Moiduddin shortness of breath. She underwent a EGD which was normal and colonoscopy showed rectal polyp so repeat colonoscopy was recommended in 5 years. She was also seen by hematology and plan is to have a follow-up in outpatient office in 1 week. Continue to hold Mircera outpatient dose. Exam Physical Exam Vital Signs: Temp Pulse Resp BP Pulse Ox O2 Del Method 98 F 76 18 108/69 94 L Room Air 07/12/22 07:59 07/12/22 11:47 07/12/22 11:47 07/12/22 11:47 07/12/22 11:47 07/12/22 11:47 Narrative: General: Appears comfortable and not in distress Heart: S1-S2, no rub Lung: Bilateral air entry, no wheezing or crackles Abdomen: Soft, positive bowel sounds Extremities: No edema, no cyanosis Head: Atraumatic, normocephalic Ear: No gross hearing Deficit or external ear redness Eyes: No pallor or redness Neck: No JVD or visible mass Skin: No rashes or bruises 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,Alert, following simple command Musculoskeletal: No joint swelling or limitation of movement Psychiatric: Cooperative, normal mood and affect Objective Intake and Output I&O: Intake & Output 07/09/22 07/10/22 07/11/22 07/12/22 23:59 23:59 23:59 23:59 Intake Total 400 / 400 11056 / 87102 6400 / 6400 Output Total 400 / 400 61009 / 13341 5200 / 5200 Balance 0 / 0 320 / 320 1200 / 1200 Weight 68.1 kg 67.8 kg 67.4 kg Meds and Allergies Meds: Active Medications Gentamicin Sulfate (Gentamicin 0.1% Cream 15 Gm Tube) 1 applic TOPICAL DAILY [facility] Stop: 07/11/23 08:59 Last Admin: 07/11/22 10:43 Dose: 1 applic Sodium Chloride (0.9% Sodium Chloride 1,000 Ml) 1,000 mls @ 20 mls/hr IV .Q24H [facility] Stop: 07/11/23 13:14 Last Admin: 07/12/22 06:56 Dose: 20 mls/hr Levothyroxine Sodium (Levothyroxine 75 Mcg Tablet) 75 mcg PO DAILY@0630 [facility] Stop: 07/11/23 06:29 Last Admin: 07/12/22 06:49 Dose: Not Given Metoprolol Tartrate (Metoprolol Tartrate 50 Mg Tablet) 50 mg PO DAILY [facility] Stop: 07/11/23 08:59 Last Admin: 07/11/22 10:43 Dose: Not Given Nifedipine (Nifedipine Er.24hr 30 Mg Tab.Er.24) 30 mg PO HS [facility] Stop: 07/10/23 21:59 Last Admin: 07/11/22 21:19 Dose: Not Given Ondansetron HCl (Ondansetron 4 Mg/2 Ml Vial) 4 mg IV-PUSH Q6H PRN PRN Reason: Nausea And Vomiting Stop: 07/11/23 20:11 Last Admin: 07/11/22 20:42 Dose: 4 mg Pantoprazole Sodium (Pantoprazole 40 Mg Vial) 40 mg IV-PUSH BID [facility] Stop: 07/10/23 20:59 Last Admin: 07/11/22 20:42 Dose: 40 mg Promethazine HCl (Promethazine 25 Mg/Ml Vial) 12.5 mg IV-PUSH Q6H PRN PRN Reason: Nausea And Vomiting Stop: 07/11/23 20:13 Last Admin: 07/11/22 22:53 Dose: 12.5 mg Sodium Chloride (Sodium Chloride 0.9 % 10 Ml Syringe) 0 ml IV-PUSH PRN PRN PRN Reason: Flush Stop: 07/10/23 14:54 Last Admin: 07/10/22 22:07 Dose: 10 ml Sodium Chloride (Sodium Chloride 0.9 % 10 Ml Syringe) 10 ml IV-PUSH PRN PRN PRN Reason: Flush Stop: 07/10/23 17:41 Sodium Chloride (Sodium Chloride 0.9 % 10 Ml Vial.Pf) 10 ml INJECTION PRN PRN PRN Reason: Dilution Stop: 07/10/23 17:41 Last Admin: 07/11/22 22:53 Dose: 10 ml Sodium Chloride (Sodium Chloride 0.9 % 10 Ml Syringe) 0 ml IV-PUSH PRN PRN PRN Reason: Flush Stop: 07/11/23 13:00 Last Admin: 07/11/22 20:42 Dose: 20 ml Sodium Chloride (Sodium Chloride 0.9 % 10 Ml Vial.Pf) 10 ml INJECTION PRN PRN PRN Reason: Promethazine Dilution Stop: 07/11/23 20:13 Sodium Chloride (Sodium Chloride 0.9 % 10 Ml Syringe) 0 ml IV-PUSH QSHIFT SERENA Stop: 07/12/23 13:59 Allergies Sulfa (Sulfonamide Antibiotics) Allergy (Verified 07/10/22 14:55) Hives sulfamethoxazole [From Bactrim] Allergy (Verified 07/10/22 14:55) Hives trimethoprim [From Bactrim] Allergy (Verified 07/10/22 14:55) Hives Results Labs 07/12/22 05:08 07/12/22 09:44 Labs: 07/12/22 05:08 BUN 41 H Creatinine 9.17 H D Radiology Impressions Impressions - last 24 hours: Any impression(s) listed above is documentation that was entered by the reading physician into a diagnostic report(s) for Winnie Cai. I have reviewed the report(s) and am incorporating any findings in the treatment plan of this patient where applicable. A&P - Nephrology Assessment/Plan (1) Acute on chronic anemia: Plan: She has a acute on chronic anemia due to the unclear etiology. Differential diagnosis hemolytic anemia versus blood loss anemia versus erythropoietin resistant anemia. 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 She has been on dialysis since April 2021 and currently uses [facility] at home (3) Liver transplant recipient: Plan: She had alcoholic liver cirrhosis underwent a liver transplant in 2014 at [facility]. She currently takes mycophenolate and cyclosporine. (4) Secondary hyperparathyroidism: Plan: She has a secondary hyperparathyroidism currently takes calcium acetate (5) Hyponatremia: Plan: She has hyponatremia due to the CKD (6) Benign hypertension with end-stage renal disease: Plan: She has a hypertension and currently takes losartan and nifedipine at home Plan * Will do CAPD during her hospital stay with 2.5% dextrose every 4 hour * Will give potassium chloride 60 mEq p.o. x1 dose. * Will also give magnesium sulfate 2 g IV x1 dose. * Stop IV fluid * Continue home dose of the nifedipine and losartan * Continue home dose of calcium acetate * Patient can be discharged from renal standpoint. * Documented By: Pedro Floyd MD 07/12/22 1156 Signed By: <Electronically signed by Pedro Floyd MD> 07/12/22 1159 [facility] Work Phone: [phone]) 391-778802-17-2023 [facility] Consult note Author Roberto Pollack [facility] July 11, 2022 6:24pm Note Date/Time July 11, 2022 6:12pm [facility] [address] [place] [address] Hem/Onc Consult Note - IP Signed Patient: Winnie Cai MR#: [id number] : 1985 Acct:[id number] Age/Sex: 37 / F Adm Date: 3 Loc: Room: [address] [place] [address] Type: ADM IN Attending Dr: Flo Thomson MD Copies to: MD Flo Ramirez MD Phillip H Fisher, MD~ HPI Consult Date: 07/11/2022 Requesting Provider: Flo Thomson MD Reason for Consult: Acute on chronic anemia. History of Present Illness: The patient is a very pleasant 37-year-old female with a history of alcoholic cirrhosis for which she underwent a liver transplant in 2014 at [facility]. Reed developed renal failure secondary to cyclosporine, and ultimately developed end- stage renal disease. She has been on peritoneal dialysis since April 2021. Shortly after starting her peritoneal dialysis she self-administered Epogen 40,000 units subcu weekly for the treatment of renal failure associated anemia. Apparently over the past month or so her baseline hemoglobin of 10-11 slowly dropped. The patient was changed to Mircera approximately 3 weeks ago. She underwent routine labs earlier this week and was found to have severe anemiawith a hemoglobin of 6.5, and was directed [facility] and she was subsequently admitted. Since admission she has received PRBC x2, and hemoglobin improved to 9. Throughout this time her white count and platelet count have remained normal. The patient states that she was anemic shortly after her liver transplant 5 years ago, and required several blood transfusions around that time. She also recalls undergoing a bone marrow biopsy shortly after her liver transplant, but is unaware of the results. Regardless, she has had no issues with anemia since recovering from her liver transplant. Review of systems on arrival was negative for any clinical signs of bleeding. She had a sinus infection several months ago, otherwise no obvious infection. She has been compliant with medications. [facility] - Medical History Medical History: Medical History (Last Updated 07/10/22 @ 20:05 by Pedro Floyd MD) Hypothyroid - Surgical History Surgical History: Surgical History (Last Reviewed 07/10/22 @ 20:03 by Pedro Floyd MD) H/O splenectomy History of appendectomy History of cholecystectomy Liver transplant status received ;over transplant in 2014 - Social History Smoking Status: Current every day smoker Tobacco Type: cigarettes Substance Use Type: None Substance Abuse Comment: SOBER X 3 WEEKS. Allergies & Medications Allergies Sulfa (Sulfonamide Antibiotics) Allergy (Verified 07/10/22 14:55) Hives sulfamethoxazole [From Bactrim] Allergy (Verified 07/10/22 14:55) Hives trimethoprim [From Bactrim] Allergy (Verified 07/10/22 14:55) Hives Home Medications levothyroxine 75 mcg tablet 75 mcg PO DAILY 07/31/20 [History Confirmed 07/10/22] metoprolol tartrate 25 mg tablet 50 mg PO DAILY 07/31/20 [History Confirmed 07/10/22] omeprazole 20 mg capsule,delayed release 20 mg PO DAILY 07/31/20 [History Confirmed 07/10/22] alprazolam 0.5 mg tablet (Xanax) 0.5 mg PO QHS PRN Anxiety 07/10/22 [History Confirmed 07/10/22] calcium acetate(phosphat bind) 667 mg capsule 50 mg PO TID.LUNCH.SUPPER.HS 07/10/22 [History Confirmed 07/10/22] cyclosporine modified 25 mg capsule 75 mg PO QAM 07/10/22 [History Confirmed 07/10/22] cyclosporine modified 50 mg capsule 50 mg PO HS 07/10/22 [History Confirmed 07/10/22] escitalopram oxalate 10 mg tablet 15 mg PO QHS 07/10/22 [History Confirmed 07/10/22] gentamicin 0.1 % topical cream 1 applic topical DAILY 07/10/22 [History Confirmed 07/10/22] losartan 25 mg tablet 25 mg PO BID 07/10/22 [History Confirmed 07/10/22] nifedipine 30 mg tablet,extended release 24 hr 30 mg PO HS 07/10/22 [History Confirmed 07/10/22] ondansetron 4 mg disintegrating tablet 4 mg PO Q8H PRN Nausea 07/10/22 [History Confirmed 07/10/22] Physical Exam - Physical Exam Vital signs: Temp Pulse Resp BP Pulse Ox O2 Del Method 98.9 F 82 18 99/64 L 100 Room Air 07/11/22 11:45 07/11/22 11:45 07/11/22 11:45 07/11/22 11:45 07/11/22 11:45 07/11/22 11:45 Awake and alert with normal vital signs. HEENT exam unremarkable. Neck supple without adenopathy. Lungs diminished but clear. Abdomen benign. No obvious masses, liver enlargement, or splenomegaly Lower extremities no edema. Results - Labs Lab Results: 07/11/22 05:47: PHA Creatinine Clear 6.97, Sodium 132 L, Potassium 3.6, [id number], Carbon Dioxide 22.6, Anion Gap 16.0 H, BUN 53 H, Creatinine 10.28 H, Est GFR( Amer) 5, Est GFR (Non-Af Amer) 4, Glucose 96, Calcium 8.2, Total Bilirubin 0.9, AST 14, ALT 10, Alkaline Phosphatase 84, Total Protein 4.8 L, Albumin 2.0 L, Globulin 2.8, Albumin/Globulin Ratio 0.7 07/11/22 05:46: Absolute Retic 0.021 L, Percent Retic 0.7 07/11/22 05:46: Corrected WBC 9.0, Uncorrected WBC Count 9.0, RBC 2.95 L, Hgb 9.1 L, Hct 27.6 L, MCV 93.6, MCH 31.0, MCHC 33.1, RDW 16.2 H, Plt Count 299, MPV7.9, Neut % (Auto) 47.9, Lymph % (Auto) 42.3, [place] % (Auto) 6.2, Eos % (Auto) 2.6, Baso % (Auto) 1.0, Nucleat RBC Rel Count 0.0, Neut # (Auto) 4.3, Lymph # (Auto) 3.8, [place] # (Auto) 0.6, Eos # (Auto) 0.2, Baso # (Auto) 0.1 07/10/22 22:10: Urine Color Yellow, Urine Appearance Clear, Urine pH 7.5, Ur Specific [place] 1.008, Urine Protein 30 H, Urine Glucose (UA) Normal, Urine Ketones Negative, Urine Occult Blood Negative, Urine Nitrite Negative, Urine Bilirubin Negative, Urine Urobilinogen Normal, Ur Leukocyte Esterase 3+ H, UrineRBC 3-4, Urine WBC 10-19 H, Ur Squamous Epith Cells 10-19 H, Ur Renal EpithelialCell None seen, Urine Bacteria 1+ H, Hyaline Casts 0-8, Urine HCG, Qual Negative 07/10/22 18:40: Haptoglobin 112 07/10/22 18:40: Blood Type Recheck O Positive 07/10/22 15:15: Iron 174 H, TIBC 188 L, Iron Saturation 92.6 H, Transferrin 134 L, Ferritin 455.0 H 07/10/22 15:15: Lactate Dehydrogenase 196 H, Vitamin B12 360, Folate 5.9 07/10/22 15:15: Slides for Path Review Ordered path review 07/10/22 15:10: Blood Type O Positive, Antibody Screen Negative, Crossmatch (AHG) See Detail Assessment & Plan (1) Anemia The patient has chronic anemia secondary to renal failure, currently on therapy with EPO. She had been on Epogen 40,000 units subcu weekly since April 2021. Her baseline hemoglobin dropped slowly through May 2022, at which time the Epogen was changed to Mircera. The [facility] with severe normochromic normocytic anemia (hemoglobin 6.2) and otherwise normal CBC. Additional labs revealed a low reticulocyte count, normal LDH and bilirubin, normal haptoglobin, elevated iron stores, borderline low folic acid, and normal B12. The patient has no evidence of hemolysis. Differential diagnosis includes bloodloss anemia, although she has no clinical symptoms of this. Regardless, I agreewith plans to undergo upper and lower endoscopy to rule out occult bleeding. Most likely the patient is anemic due to poor bone marrow production. Differential diagnosis include pure red cell aplasia due to anti-erythropoiesis stimulating agent antibodies versus bone marrow suppression due to other conditions including viral infection. Admission labs also revealed markedly elevated ferritin with elevated percent saturation raising the possibility of hemochromatosis. Elevated ferritin can also be seen in iron loading anemias. The patient is currently stable after her blood transfusion. Assuming her GI work-up is negative I believe it is reasonable to discharge her. I would like to see her in my office next week with repeat CBC. We will then further evaluate as indicated to include BLAISE antibodies, repeat iron stores with possible HFE genetic testing. We will also consider bone marrow biopsy to rule out PRCA. In the meantime would hold off Mircera, and continue transfusions as needed to maintain hemoglobin greater than 8. - Time Spent with Patient Greater than 50% of time spent with patient was for coordination of care (as documented) and [id number] counseling of patient and/or family. Documented By: Roberto Pollack MD 07/11/22 180 Signed By: <Electronically signed by MD Roberto Pollack> 07/11/22 1822 [facility] Work Phone: 1(236) 927-889102-16-2023 Consult note Author Gui Rodas [facility] July 11, 2022 4:46pm Note Date/Time July 11, 2022 4:46pm [facility] [address] [place] [address] Gastroenterology Consult Note Signed Patient: Winnie Cai MR#: [id number] : 1985 Acct:[id number] Age/Sex: 37 / F Adm Date: 3 Loc: 3T Room: [address] [place] [address] Type: ADM IN Attending Dr: Flo Thomson MD Copies to: MD Gui Delgado MD Phillip H Fisher, MD~ HPI Data of Consult Date of Consultation: 07/11/22 Requesting Physician: Flo Thomson MD Consult Narrative History of present illness: Ms. Cai is a 37 year old female who is referred because because of severe anemia. The patient has a very interesting history of having had liver transplant back in 2014. 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 She states that she used to drink with her customers and developed severe alcoholic hepatitis. She was hospitalized in [place] but with liver failure she was transferred to [place] where she underwent liver transplantation. She did not develop renal failure after the transplant and has been on peritoneal dialysis for the last year. She states she checks her blood monthly. She has been getting Neupogen shots monthly to keep her blood counts up but they have never been this low. She states she was then switched to a different medicationlast month. She has not been having any GI symptoms. She denies blood in the stools or black tarry stools. She has not had nausea or vomiting or ulcer type symptoms for On admission to the hospital she had a hemoglobin of 6.5. Indices are normochromic normocytic and stools have been Hemoccult negative. Patient does drink some alcohol but nothing like she did before. She states shewill have some vodka and water a couple of times a week. She does smoke cigarettes and does smoke marijuana on occasion but has not taken anything for the last 3 weeks. cc:: CC: Flo Thomson MD Review of Systems Review of Systems All other systems reviewed & are negative unless noted below or in HPI PMFSH Vaccinated for COVID-19?: Yes Medical History (Updated 07/10/22 @ 20:05 by Pedro Floyd MD) Hypothyroid Surgical History (Updated 07/10/22 @ 20:05 by Pedro Floyd MD) H/O splenectomy History of appendectomy History of cholecystectomy Liver transplant status received ;over transplant in 2014 Social History Smoking Status: Current every day smoker Tobacco Type: cigarettes Substance Use Type: None Substance Abuse Comment: SOBER X 3 WEEKS. Meds Medications and Allergies Allergies Sulfa (Sulfonamide Antibiotics) Allergy (Verified 07/10/22 14:55) Hives sulfamethoxazole [From Bactrim] Allergy (Verified 07/10/22 14:55) Hives trimethoprim [From Bactrim] Allergy (Verified 07/10/22 14:55) Hives Home Medications levothyroxine 75 mcg tablet 75 mcg PO DAILY 07/31/20 [History Confirmed 07/10/22] metoprolol tartrate 25 mg tablet 50 mg PO DAILY 07/31/20 [History Confirmed 07/10/22] omeprazole 20 mg capsule,delayed release 20 mg PO DAILY 07/31/20 [History Confirmed 07/10/22] alprazolam 0.5 mg tablet (Xanax) 0.5 mg PO QHS PRN Anxiety 07/10/22 [History Confirmed 07/10/22] calcium acetate(phosphat bind) 667 mg capsule 50 mg PO TID.LUNCH.SUPPER.HS 07/10/22 [History Confirmed 07/10/22] cyclosporine modified 25 mg capsule 75 mg PO QAM 07/10/22 [History Confirmed 07/10/22] cyclosporine modified 50 mg capsule 50 mg PO HS 07/10/22 [History Confirmed 07/10/22] escitalopram oxalate 10 mg tablet 15 mg PO QHS 07/10/22 [History Confirmed 07/10/22] gentamicin 0.1 % topical cream 1 applic topical DAILY 07/10/22 [History Confirmed 07/10/22] losartan 25 mg tablet 25 mg PO BID 07/10/22 [History Confirmed 07/10/22] nifedipine 30 mg tablet,extended release 24 hr 30 mg PO HS 07/10/22 [History Confirmed 07/10/22] ondansetron 4 mg disintegrating tablet 4 mg PO Q8H PRN Nausea 07/10/22 [History Confirmed 07/10/22] Exam Physical Exam Vital Signs: Temp Pulse Resp BP Pulse Ox O2 Del Method 98.9 F 82 18 99/64 L 100 Room Air 07/11/22 11:45 07/11/22 11:45 07/11/22 11:45 07/11/22 11:45 07/11/22 11:45 07/11/22 11:45 Narrative: Constitutional: Well-developed, well nourished, alert and oriented ?3, in no apparent distress. Head: Normocephalic. Eyes pupils equal and round, reactive to light and accommodation. No icterus or conjunctivitis. Ears: Normal appearance. Neck and nodes: negative Mouth, nose and throat: Normal appearance. Chest: Clear to auscultation and percussion. Heart: Regular rhythm without murmurs or gallops. No thrills or heaves. Abdomen: No distention or tympany. Normal bowel sounds. Liver and spleen normal to percussion and palpation. No masses or tenderness. No bruits heard Rectum: Grossly normal. Extremities: No palmar erythema. No Dupuytren's contractures. No edema noted. Neuro: Grossly negative. Skin: Normal Results Labs Labs: Laboratory Results - last 24 hr 07/10/22 07/10/22 07/10/22 15:10 15:15 15:15 Corrected WBC Uncorrected WBC Count RBC Cancelled Hgb Hct MCV MCH MCHC RDW Plt Count MPV Neut % (Auto) Lymph % (Auto) [place] % (Auto) Eos % (Auto) Baso % (Auto) Nucleat RBC Rel Count Neut # (Auto) Lymph # (Auto) [place] # (Auto) Eos # (Auto) Baso # (Auto) Absolute Retic Percent Retic Haptoglobin PHA Creatinine Clear Sodium Potassium Chloride Carbon Dioxide Anion Gap BUN Creatinine Est GFR ( Amer) Est GFR (Non-Af Amer) Glucose Calcium Iron TIBC Iron Saturation Transferrin Ferritin Total Bilirubin AST ALT Alkaline Phosphatase Lactate Dehydrogenase Total Protein Albumin Globulin Albumin/Globulin Ratio Vitamin B12 Folate Urine Color Urine Appearance Urine pH Ur Specific [place] Urine Protein Urine Glucose (UA) Urine Ketones Urine Occult Blood Urine Nitrite Urine Bilirubin Urine Urobilinogen Ur Leukocyte Esterase Urine RBC Urine WBC Ur Squamous Epith Cells Ur Renal Epithelial Cell Urine Bacteria Hyaline Casts Urine HCG, Qual Slides for Path Review Ordered path review Blood Type O Positive Blood Type Recheck Antibody Screen Negative Crossmatch (AHG) See Detail 07/10/22 07/10/22 07/10/22 15:15 15:15 18:40 Corrected WBC Uncorrected WBC Count RBC Hgb Hct MCV MCH MCHC RDW Plt Count MPV Neut % (Auto) Lymph % (Auto) [place] % (Auto) Eos % (Auto) Baso % (Auto) Nucleat RBC Rel Count Neut # (Auto) Lymph # (Auto) [place] # (Auto) Eos # (Auto) Baso # (Auto) Absolute Retic Percent Retic Haptoglobin PHA Creatinine Clear Sodium Potassium Chloride Carbon Dioxide Anion Gap BUN Creatinine Est GFR ( Amer) Est GFR (Non-Af Amer) Glucose Calcium Iron 174 H TIBC 188 L Iron Saturation 92.6 H Transferrin 134 L Ferritin 455.0 H Total Bilirubin AST ALT Alkaline Phosphatase Lactate Dehydrogenase 196 H Total Protein Albumin Globulin Albumin/Globulin Ratio Vitamin B12 360 Folate 5.9 Urine Color Urine Appearance Urine pH Ur Specific [place] Urine Protein Urine Glucose (UA) Urine Ketones Urine Occult Blood Urine Nitrite Urine Bilirubin Urine Urobilinogen Ur Leukocyte Esterase Urine RBC Urine WBC Ur Squamous Epith Cells Ur Renal Epithelial Cell Urine Bacteria Hyaline Casts Urine HCG, Qual Slides for Path Review Blood Type Blood Type Recheck O Positive Antibody Screen Crossmatch ([facility]) 07/10/22 07/10/22 07/11/22 18:40 22:10 05:46 Corrected WBC 9.0 Uncorrected WBC Count 9.0 RBC 2.95 L Hgb 9.1 L Hct 27.6 L MCV 93.6 MCH 31.0 MCHC 33.1 RDW 16.2 H Plt Count 299 MPV 7.9 Neut % (Auto) 47.9 Lymph % (Auto) 42.3 [place] % (Auto) 6.2 Eos % (Auto) 2.6 Baso % (Auto) 1.0 Nucleat RBC Rel Count 0.0 Neut # (Auto) 4.3 Lymph # (Auto) 3.8 [place] # (Auto) 0.6 Eos # (Auto) 0.2 Baso # (Auto) 0.1 Absolute Retic Percent Retic Haptoglobin 112 PHA Creatinine Clear Sodium Potassium Chloride Carbon Dioxide Anion Gap BUN Creatinine Est GFR ( Amer) Est GFR (Non-Af Amer) Glucose Calcium Iron TIBC Iron Saturation Transferrin Ferritin Total Bilirubin AST ALT Alkaline Phosphatase Lactate Dehydrogenase Total Protein Albumin Globulin Albumin/Globulin Ratio Vitamin B12 Folate Urine Color Yellow Urine Appearance Clear Urine pH 7.5 Ur Specific [place] 1.008 Urine Protein 30 H Urine Glucose (UA) Normal Urine Ketones Negative Urine Occult Blood Negative Urine Nitrite Negative Urine Bilirubin Negative Urine Urobilinogen Normal Ur Leukocyte Esterase 3+ H Urine RBC 3-4 Urine WBC 10-19 H Ur Squamous Epith Cells 10-19 H Ur Renal Epithelial Cell None seen Urine Bacteria 1+ H Hyaline Casts 0-8 Urine HCG, Qual Negative Slides for Path Review Blood Type Blood Type Recheck Antibody Screen Crossmatch (G) 07/11/22 07/11/22 05:46 05:47 Corrected WBC Uncorrected WBC Count RBC Hgb Hct MCV MCH MCHC RDW Plt Count MPV Neut % (Auto) Lymph % (Auto) [place] % (Auto) Eos % (Auto) Baso % (Auto) Nucleat RBC Rel Count Neut # (Auto) Lymph # (Auto) [place] # (Auto) Eos # (Auto) Baso # (Auto) Absolute Retic 0.021 L Percent Retic 0.7 Haptoglobin PHA Creatinine Clear 6.97 Sodium 132 L Potassium 3.6 Chloride 97 Carbon Dioxide 22.6 Anion Gap 16.0 H BUN 53 H Creatinine 10.28 H Est GFR ( Amer) 5 Est GFR (Non-Af Amer) 4 Glucose 96 Calcium 8.2 Iron TIBC Iron Saturation Transferrin Ferritin Total Bilirubin 0.9 AST 14 ALT 10 Alkaline Phosphatase 84 Lactate Dehydrogenase Total Protein 4.8 L Albumin 2.0 L Globulin 2.8 Albumin/Globulin Ratio 0.7 Vitamin B12 Folate Urine Color Urine Appearance Urine pH Ur Specific [place] Urine Protein Urine Glucose (UA) Urine Ketones Urine Occult Blood Urine Nitrite Urine Bilirubin Urine Urobilinogen Ur Leukocyte Esterase Urine RBC Urine WBC Ur Squamous Epith Cells Ur Renal Epithelial Cell Urine Bacteria Hyaline Casts Urine HCG, Qual Slides for Path Review Blood Type Blood Type Recheck Antibody Screen Crossmatch ([facility]) A&P - Gastroenterology Assessment/Plan (1) Acute on chronic anemia: Plan: Her hemoglobin is never been this low before and there is no apparent cause for her hemoglobin drop. I believe EGD and colonoscopy is in order we will proceed in the a.m. If these are okay I believe she can be safely discharged. Code(s): D64.9 - Anemia, unspecified Status: Acute Documented By: Gui Rodas MD 07/11/221642 Signed By: <Electronically signed by MD Gui Rodas> 07/11/221645 [facility] Work Phone: [phone]) 639-652702-16-2023 Progress note Author Pedro Floyd [facility] July 11, 2022 12:30pm Note Date/Time July 11, 2022 12:30pm [facility] [address] [place] [address] Nephrology Progress Note Signed Patient: Winnie Cai MR#: [id number] : 1985 Acct:[id number] Age/Sex: 37 / F Adm Date: 3 Loc: Room: [address] [place] [address] Type: ADM IN Attending Dr: Flo Thomson MD Copies to: ~ Date of Service: 07/11/2022 Subjective Subjective Narrative: This is a 37-year-old female with a medical history of ESRD, alcoholic liver cirrhosis s/p liver transplant, anemia, secondary hyperparathyroidism, hypertension and GERD was sent to the emergency room due to the worsening symptomatic anemia. 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 She currently doesa home peritoneal dialysis with [facility]. Patient was found to have a worsening anemia on outpatient labs done by the PCP with hemoglobin 6.9 g/dL. Our office will contact you and then we repeat the hemoglobin was 6.2 g/dL. Patient also reported to have a generalized fatigue so was advised to go to emergency room. Patient labs reviewed from the outpatient dialysis unit that showed her hemoglobin was 11.1 g/dL on April 30, 2022. It dropped down to 9.1 g/dL on June 02. It was repeated this month on July 03 and it was 8.1 g/dL. Patient was receiving Epogen 40,000 unit until April and it was reduced to 34,000 as her hemoglobin was 11.1 g/dL. Due to the worsening anemia the dose ofthe Epogen was again increased to 40,000 unit in May 2022 but she continues to have a worsening anemia despite high-dose of the Epogen. Patient has been compliant with her dialysis but she missed last night due to sleep and fatigue. Nephrology is consulted for ESRD management during the hospital stay. Interval history Patient was seen and examined at bedside. She is still feeling weak but denies any chest with palpation cough nausea Moiduddin shortness of breath. She is currently n.p.o. GI and hematology has been consulted. She has been tolerating CAPD with no issues. 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9 % Sodium Chloride) 500 mls @ 20 mls/hr IV PROTOCOL PRN PRN Reason: BLOOD TRANSFUSION Stop: 07/11/22 16:20 Dextrose/Sodium Chloride (5 % Dextrose-0.9 % Nacl) 1,000 mls @ 75 mls/hr IV .[id number] [facility] Stop: 07/10/23 17:44 Last Admin: 07/11/22 01:11 Dose: 75 mls/hr Levothyroxine Sodium (Levothyroxine 75 Mcg Tablet) 75 mcg PO DAILY@0630 SERE[facility] Stop: 07/11/23 06:29 Last Admin: 07/11/22 06:53 Dose: 75 mcg Metoprolol Tartrate (Metoprolol Tartrate 50 Mg Tablet) 50 mg PO DAILY [facility] Stop: 07/11/23 08:59 Last Admin: 07/11/22 10:43 Dose: Not Given Nifedipine (Nifedipine Er.24hr 30 Mg Tab.Er.24) 30 mg PO HS [facility]ERE[facility] Stop: 07/10/23 21:59 Last Admin: 07/10/22 22:07 Dose: 30 mg Pantoprazole Sodium (Pantoprazole 40 Mg Vial) 40 mg IV-PUSH BID SERENA Stop: 07/10/23 20:59 Last Admin: 07/11/22 10:43 Dose: 40 mg Sodium Chloride (Sodium Chloride 0.9 % 10 Ml Syringe) 0 ml IV-PUSH PRN PRN PRN Reason: Flush Stop: 07/10/23 14:54 Last Admin: 07/10/22 22:07 Dose: 10 ml Sodium Chloride (Sodium Chloride 0.9 % 10 Ml Syringe) 10 ml IV-PUSH PRN PRN PRN Reason: Flush Stop: 07/10/23 17:41 Sodium Chloride (Sodium Chloride 0.9 % 10 Ml Vial.Pf) 10 ml INJECTION PRN PRN PRN Reason: Dilution Stop: 07/10/23 17:41 Last Admin: 07/10/22 22:07 Dose: 10 ml Allergies Sulfa (Sulfonamide Antibiotics) Allergy (Verified 07/10/22 14:55) Hives sulfamethoxazole [From Bactrim] Allergy (Verified 07/10/22 14:55) Hives trimethoprim [From Bactrim] Allergy (Verified 07/10/22 14:55) Hives Results Labs 07/11/22 05:46 07/11/22 05:47 Labs: 07/10/22 07/10/22 07/10/22 15:15 15:15 22:10 BUN 53 H Creatinine 10.50 H Iron Saturation 92.6 H Ferritin 455.0 H Albumin 2.1 L Urine Color Yellow Urine Appearance Clear Urine pH 7.5 Ur Specific [place] 1.008 Urine Protein 30 H Urine Glucose (UA) Normal Urine Ketones Negative Urine Occult Blood Negative Urine Nitrite Negative Ur Leukocyte Esterase 3+ H Urine RBC 3-4 Urine WBC 10-19 H Urine Bacteria 1+ H 07/11/22 05:47 BUN 53 H Creatinine 10.28 H Iron Saturation Ferritin Albumin 2.0 L Urine Color Urine Appearance Urine pH Ur Specific [place] Urine Protein Urine Glucose (UA) Urine Ketones Urine Occult Blood Urine Nitrite Ur Leukocyte Esterase Urine RBC Urine WBC Urine Bacteria Radiology Impressions Impressions - last 24 hours: Any impression(s) listed above is documentation that was entered by the reading physician into a diagnostic report(s) for Winnie Cai. I have reviewed the report(s) and am incorporating any findings in the treatment plan of this patient where applicable. A&P - Nephrology Assessment/Plan (1) Acute on chronic anemia: Plan: She has a acute on chronic anemia due to the unclear etiology. Differential diagnosis hemolytic anemia versus blood loss anemia versus erythropoietin resistant anemia. 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 She has been on dialysis since April 2021 and currently uses [facility] at home (3) Liver transplant recipient: Plan: She had alcoholic liver cirrhosis underwent a liver transplant in 2014 at [facility]. She currently takes mycophenolate and cyclosporine. (4) Secondary hyperparathyroidism: Plan: She has a secondary hyperparathyroidism currently takes calcium acetate (5) Hyponatremia: Plan: She has hyponatremia due to the CKD (6) Benign hypertension with end-stage renal disease: Plan: She has a hypertension and currently takes losartan and nifedipine at home Plan * Will do CAPD during her hospital stay with 2.5% dextrose every 4 hour * Agree with IV fluid while she is n.p.o. for GI evaluation. * Agree with hematology consult that she has iron overload with anemia * Consider GI consult to rule out blood loss anemia due to acute GI bleed * Continue home dose of the nifedipine and losartan * Continue home dose of calcium acetate * Check renal function to be monitored up output * Documented By: Pedro Floyd MD 07/11/22 1227 Signed By: <Electronically signed by Pedro Floyd MD> 07/11/22 1230 [facility] Work Phone: 1(554) 548-670902-16-2023 Progress note Author Flo Thomson [facility] July 11, 2022 10:33am Note Date/Time July 11, 2022 10:31am [facility] [address] [place] [address] Hospitalist Progress Note Signed Patient: Winnie Cai MR#: [id number] : 1985 Acct:[id number] Age/Sex: 37 / F Adm Date: 3 Loc: 3T Room: [address] [place] [address] Type: ADM IN Attending Dr: Flo Thomson MD Copies to: ~ Date of Service: 07/11/2022 Subjective Subjective Narrative: Continues to be asymptomatic, denies chest pain or shortness of breath Hemoglobin improved with blood transfusion Exam Physical Exam Vital Signs: Temp Pulse Resp BP Pulse Ox O2 Del Method 98.9 F 84 16 134/78 99 Room Air 07/11/22 09:52 07/11/22 06:10 07/11/22 09:52 07/11/22 09:52 07/11/22 09:52 07/11/22 09:52 Narrative: General: cooperative, alert & oriented x3 HEENT: Normal oropharyngeal mucosa without any ulcers or exudates, Conjunctiva normal Lungs: diminished breath sounds bilaterally Heart: normal rate, regular rhythm, S1 normal, S2 normal and no murmurs GI: non-distended, soft, not firm and nontender. No rigidity or rebound. Neuro No obvious new focal deficit Musculoskeletal: normal range of motion Extrem: no cyanosis, no pedal edema Skin: no significant ulcers, no rash noted Psych: appropriate affect. Grossly normal Objective Lab Results 07/11/22 05:46 07/11/22 05:47 Microbiology Results Microbiology 07/10/22 15:20 Stool Stool Occult Blood (KARLEE) - Final Meds Allergies and Active Meds Allergies Sulfa (Sulfonamide Antibiotics) Allergy (Verified 07/10/22 14:55) Hives sulfamethoxazole [From Bactrim] Allergy (Verified 07/10/22 14:55) Hives trimethoprim [From Bactrim] Allergy (Verified 07/10/22 14:55) Hives Active Meds: Active Medications Generic Name Dose Route Start Last Admin Trade Name Freq PRN Reason Stop Dose Admin Gentamicin Sulfate 1 applic 07/11/22 09:00 Gentamicin 0.1% Cream 15 Gm Tube TOPICAL 07/11/23 08:59 DAILY SERENA Sodium Chloride 500 mls @ 20 mls/hr 07/10/22 16:21 0.9 % Sodium Chloride IV 07/11/22 16:20 PROTOCOL PRN BLOOD TRANSFUSION Dextrose/Sodium Chloride 1,000 mls @ 75 mls/hr 07/10/22 17:45 07/11/22 01:11 5 % Dextrose-0.9 % Nacl IV 07/10/23 17:44 75 mls/hr .[id number] SERENA Administration Levothyroxine Sodium 75 mcg 07/11/22 06:30 07/11/22 06:53 Levothyroxine 75 Mcg Tablet PO 02/16/24 06:29 75 mcg DAILY@0630 SERENA Administration Metoprolol Tartrate 50 mg 07/11/22 09:00 Metoprolol Tartrate 50 Mg Tablet PO 07/11/23 08:59 DAILY SERENA Nifedipine 30 mg 07/10/22 22:00 07/10/22 22:07 Nifedipine Er.24hr 30 Mg Tab.Er.24 PO 07/10/23 21:59 30 mg HS SERENA Administration Pantoprazole Sodium 40 mg 07/10/22 21:00 07/10/22 22:07 Pantoprazole 40 Mg Vial IV-PUSH 07/10/23 20:59 40 mg BID SERENA Administration Sodium Chloride 0 ml 07/10/22 14:55 07/10/22 22:07 Sodium Chloride 0.9 % 10 Ml Syringe IV-PUSH 07/10/23 14:54 10 ml PRN PRN Administration Flush Sodium Chloride 10 ml 07/10/22 17:42 Sodium Chloride 0.9 % 10 Ml Syringe IV-PUSH 07/10/23 17:41 PRN PRN Flush Sodium Chloride 10 ml 07/10/22 17:42 07/10/22 22:07 Sodium Chloride 0.9 % 10 Ml Vial.Pf INJECTION 07/10/23 17:41 10 ml PRN PRN Administration Dilution A&P - Hospitalist Assessment/Plan (1) Anemia: Plan Acute anemia, unknown etiology End-stage renal disease on peritoneal dialysis External hemorrhoids Hyponatremia History of renal transplant 2016 in [place] for liver cirrhosis Plan: The patient received 2 units of PRBCs, hemoglobin today is 9.1. Continue to monitor H&H she has a normal iron panel, B12 and RBC folate. I will consult hematology for work-up of anemia, her iron panel is not consistent with iron deficiency. Bilirubin is normal which essentially excludes hemolysis Consult GI for work-up. Continue IV Protonix. Keep the patient n.p.o. Consult nephrology for dialysis SCDs for DVT prophylaxis Documented By: Flo Thomson MD 07/11/22 103 Signed By: <Electronically signed by Flo Thomson MD> 07/11/221032 [facility] Work Phone: [phone]) [phone] Consult note Author Pedro Floyd [facility] July 10, 2022 8:19pm Note Date/Time July 10, 2022 8:19pm [facility] [address] [place] [address] Nephrology Consult Note Signed Patient: Winnie Cai MR#: [id number] : 1985 Acct:[id number] Age/Sex: 37 / F Adm Date: 3 Loc: Room: [address] [place] [address] Type: ADM IN Attending Dr: Flo Thomson MD Copies to: MD Flo Ferrer MD Phillip H Fisher, MD~ Providers Consult Date: 07/10/22 Requesting Provider: Flo Thomson MD Primary Care Provider: Frank Pantoja MD HPI Reason for Consult: ESRD management History of Present Illness: This is a 37-year-old female with a medical history of ESRD, alcoholic liver cirrhosis s/p liver transplant, anemia, secondary hyperparathyroidism, hypertension and GERD was sent to the emergency room due to the worsening symptomatic anemia. 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 She currently doesa home peritoneal dialysis with [facility]. Patient was found to have a worsening anemia on outpatient labs done by the PCP with hemoglobin 6.9 g/dL. Our office will contact you and then we repeat the hemoglobin was 6.2 g/dL. Patient also reported to have a generalized fatigue so was advised to go to emergency room. Patient labs reviewed from the outpatient dialysis unit that showed her hemoglobin was 11.1 g/dL on April 30, 2022. It dropped down to 9.1 g/dL on June 02. It was repeated this month on July 03 and it was 8.1 g/dL. Patient was receiving Epogen 40,000 unit until April and it was reduced to 34,000 as her hemoglobin was 11.1 g/dL. Due to the worsening anemia the dose ofthe Epogen was again increased to 40,000 unit in May 2022 but she continues to have a worsening anemia despite high-dose of the Epogen. Patient has been compliant with her dialysis but she missed last night due to sleep and fatigue. Nephrology is consulted for ESRD management during the hospital stay. Patient was seen and examined at bedside feeling weak. Review of Systems Review of Systems All other systems reviewed & are negative unless noted below or in HPI Review of systems: Cardiovascular: denies any chest pain, palpitation Pulmonary: denies any cough, hemoptysis Gastrointestinal: denies any nausea, vomiting, diarrhea Neurological :denies any headache, numbness, weakness Endocrine: denies any polyuria, polydipsia Dermatological: denies any itching or rash PMFSH Vaccinated for COVID-19?: Yes Medical History (Updated 07/10/22 @ 20:05 by Pedro Floyd MD) Hypothyroid Surgical History (Updated 07/10/22 @ 20:05 by Pedro Floyd MD) H/O splenectomy History of appendectomy History of cholecystectomy Liver transplant status received ;over transplant in 2014 Social History Smoking Status: Current every day smoker Tobacco Type: cigarettes Substance Use Type: None Substance Abuse Comment: SOBER X 3 WEEKS. Meds Medications & Allergies Allergies Sulfa (Sulfonamide Antibiotics) Allergy (Verified 07/10/22 14:55) Hives sulfamethoxazole [From Bactrim] Allergy (Verified 07/10/22 14:55) Hives trimethoprim [From Bactrim] Allergy (Verified 07/10/22 14:55) Hives Home Medications levothyroxine 75 mcg tablet 75 mcg PO DAILY 07/31/20 [History Confirmed 07/10/22] metoprolol tartrate 25 mg tablet 25 mg PO DAILY 07/31/20 [History Confirmed 07/10/22] omeprazole 20 mg capsule,delayed release 20 mg PO DAILY 07/31/20 [History Confirmed 07/10/22] alprazolam 0.5 mg tablet (Xanax) 0.5 mg PO QHS PRN Anxiety 07/10/22 [History Confirmed 07/10/22] calcium acetate(phosphat bind) 667 mg capsule 50 mg PO TID.LUNCH.SUPPER.HS 07/10/22 [History Confirmed 07/10/22] cyclosporine modified 25 mg capsule 75 mg PO QAM 07/10/22 [History Confirmed 07/10/22] cyclosporine modified 50 mg capsule 50 mg PO HS 07/10/22 [History Confirmed 07/10/22] escitalopram oxalate 10 mg tablet 15 mg PO QHS 07/10/22 [History Confirmed 07/10/22] gentamicin 0.1 % topical cream 1 applic topical DAILY 07/10/22 [History Confirmed 07/10/22] losartan 25 mg tablet 25 mg PO BID 07/10/22 [History Confirmed 07/10/22] nifedipine 30 mg tablet,extended release 24 hr 30 mg PO HS 07/10/22 [History Confirmed 07/10/22] ondansetron 4 mg disintegrating tablet 4 mg PO Q8H PRN Nausea 07/10/22 [History Confirmed 07/10/22] Active Medications: Active Medications Gentamicin Sulfate (Gentamicin 0.1% Cream 15 Gm Tube) 1 applic TOPICAL DAILY [facility] Stop: 07/11/23 08:59 Sodium Chloride (0.9 % Sodium Chloride) 500 mls @ 20 mls/hr IV PROTOCOL PRN PRN Reason: BLOOD TRANSFUSION Stop: 07/11/22 16:20 Dextrose/Sodium Chloride (5 % Dextrose-0.9 % Nacl) 1,000 mls @ 75 mls/hr IV .[id number] [facility] Stop: 07/10/23 17:44 Levothyroxine Sodium (Levothyroxine 75 Mcg Tablet) 75 mcg PO DAILY@0630 [facility] Stop: 07/11/23 06:29 Metoprolol Tartrate (Metoprolol Tartrate 25 Mg Tablet) 25 mg PO DAILY [facility] Stop: 07/11/23 08:59 Nifedipine (Nifedipine Er.24hr 30 Mg Tab.Er.24) 30 mg PO HS [facility] Stop: 07/10/23 21:59 Pantoprazole Sodium (Pantoprazole 40 Mg Vial) 40 mg IV-PUSH BID [facility] Stop: 07/10/23 20:59 Sodium Chloride (Sodium Chloride 0.9 % 10 Ml Syringe) 0 ml IV-PUSH PRN PRN PRN Reason: Flush Stop: 07/10/23 14:54 Sodium Chloride (Sodium Chloride 0.9 % 10 Ml Syringe) 10 ml IV-PUSH PRN PRN PRN Reason: Flush Stop: 07/10/23 17:41 Sodium Chloride (Sodium Chloride 0.9 % 10 Ml Vial.Pf) 10 ml INJECTION PRN PRN PRN Reason: Dilution Stop: 07/10/23 17:41 Exam Physical Exam Vital Signs: Temp Pulse Resp BP Pulse Ox O2 Del Method 98.7 F 66 16 144/99 H 98 Room Air 07/10/22 14:57 07/10/22 17:30 07/10/22 17:30 07/10/22 17:30 07/10/22 17:30 07/10/22 14:57 Narrative: General: Appears comfortable and not in distress Heart: S1-S2, no rub Lung: Bilateral air entry, no wheezing or crackles Abdomen: Soft, positive bowel sounds Extremities: No edema, no cyanosis Head: Atraumatic, normocephalic Ear: No gross hearing Deficit or external ear redness Eyes: No pallor or redness Neck: No JVD or visible mass Skin: No rashes or bruises 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 I have reviewed the report(s) and am incorporating any findings in the treatment plan of this patient where applicable. A&P - Nephrology Assessment/Plan (1) Acute on chronic anemia: Plan: She has a acute on chronic anemia due to the unclear etiology. Differential diagnosis hemolytic anemia versus blood loss anemia versus erythropoietin resistant anemia. 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 She has been on dialysis since April 2021 and currently uses [facility] at home (3) Liver transplant recipient: Plan: She had alcoholic liver cirrhosis underwent a liver transplant in 2015 at [facility]. She currently takes mycophenolate and cyclosporine. (4) Secondary hyperparathyroidism: Plan: She has a secondary hyperparathyroidism currently takes calcium acetate (5) Hyponatremia: Plan: She has hyponatremia due to the CKD (6) Benign hypertension with end-stage renal disease: Plan: She has a hypertension and currently takes losartan and nifedipine at home Plan * Will do CAPD during her hospital stay with 1.5% dextrose alternate with 2.5% dextrose every 4 hour * Transfused 2 unit of PRBC. * Check haptoglobin, LDH, peripheral smear, iron studies B12 and folate level. * Consider GI consult to rule out blood loss anemia due to acute GI bleed * Continue home dose of the nifedipine and losartan * Continue home dose of calcium acetate * Check renal function to be monitored up output * Thanks for consult. We will continue to follow with you. Please feel free to call us with any question. Documented By: Pedro Floyd MD 07/10/221946 Signed By: <Electronically signed by Pedro Floyd MD> 07/10/222018 [facility] Work Phone: 1([phone]) 554-179602-15-2023 History and physical note Author Flo Thomson [facility] July 10, 2022 5:47pm Note Date/Time July 10, 2022 5:38pm [facility] [address] [place] [address] Hospitalist H&P Signed Patient: Winnie Cai MR#: [id number] : 1985 Acct:[id number] Age/Sex: 37 / F Adm Date: 3 Loc: ER Room: Type: [facility] ER Attending Dr: Copies to: KASI Mueller MD Phillip H Fisher, MD~ HPI DATE OF EXAMINATION: 07/10/22 CHIEF COMPLAINT: Anemia HISTORY OF PRESENT ILLNESS: This is a 37-year-old female who presents to the emergency department for evaluation of low hemoglobin. The Patient states she had labs drawn today and was told to come to the emergency department due to low hemoglobin.? She denies any fever, chills, nausea, vomit, chest pain, shortness of breath, numbness, tingling, rectal bleeding, abdominal pain or any other concerns.? Patient statesin 2014 she had liver transplant due to cirrhosis.? Patient states liver transplant was done in [place].? Patient states she is on peritoneal dialysis x1 year.? Patient states she is pretty compliant with doing her dialysis treatment but she fell asleep last night in which she did not do dialysis last night.? Patient states she does have hemorrhoids.? She denies any active bleeding, she did not miss any rectal bleeding, no hematemesis, is not had a period In years.? Review of Systems Review of Systems All other systems reviewed & are negative unless noted below or in HPI PMFSH Vaccinated for COVID-19?: Yes Medical History (Updated 07/10/22 @ 16:44 by Kelly Carmen APRN) Hypothyroid Surgical History (Updated 07/10/22 @ 16:44 by Kelly Carmen APRN) H/O splenectomy History of appendectomy History of cholecystectomy Liver transplant status received ;over transplant in 2014 Social History Smoking Status: Current every day smoker Substance Use Type: Marijuana Substance Abuse Comment: SOBER X 3 WEEKS. Meds Medications and Allergies Allergies Sulfa (Sulfonamide Antibiotics) Allergy (Verified 07/10/22 14:55) Hives sulfamethoxazole [From Bactrim] Allergy (Verified 07/10/22 14:55) Hives trimethoprim [From Bactrim] Allergy (Verified 07/10/22 14:55) Hives Home Medications levothyroxine 75 mcg tablet 75 mcg PO DAILY 07/31/20 [History Confirmed 07/10/22] metoprolol tartrate 25 mg tablet 25 mg PO DAILY 07/31/20 [History Confirmed 07/10/22] omeprazole 20 mg capsule,delayed release 20 mg PO DAILY 07/31/20 [History Confirmed 07/10/22] nifedipine 30 mg tablet,extended release 24 hr 30 mg PO HS 07/10/22 [History Confirmed 07/10/22] Exam Physical Exam Vital Signs: Temp Pulse Resp BP Pulse Ox O2 Del Method 98.7 F 74 18 119/82 100 Room Air 07/10/22 14:57 07/10/22 14:57 07/10/22 14:57 07/10/22 14:57 07/10/22 14:57 07/10/22 14:57 Narrative: General: cooperative, alert & oriented x3 HEENT: Normal oropharyngeal mucosa without any ulcers or exudates, Conjunctiva normal Lungs: diminished breath sounds bilaterally Heart: normal rate, regular rhythm, S1 normal, S2 normal and no murmurs GI: non-distended, soft, not firm and nontender. No rigidity or rebound. Neuro No obvious new focal deficit Musculoskeletal: normal range of motion Extrem: no cyanosis, no pedal edema Skin: no significant ulcers, no rash noted Psych: appropriate affect. Grossly normal Results Lab Results Labs: Laboratory Last Values Corrected WBC 7.5 X10E3/uL (3.8-11.6) 07/10/22 15:15 RBC 2.06 X10E6/uL (3.60-5.00) L 07/10/22 15:15 RBC Cancelled 07/10/22 15:15 Hgb 6.5 g/dL (11.8-15.4) L 07/10/22 15:15 Hct 19.9 % (34.0-46.4) L* 07/10/22 15:15 MCV 96.6 fl (80-100) 07/10/22 15:15 MCH 31.6 pg (24.7-34.3) 07/10/22 15:15 MCHC 32.7 g/dL (32.0-35.0) 07/10/22 15:15 RDW 16.8 % (11.9-15.3) H 07/10/22 15:15 Plt Count 334 x10E3/uL (150-450) 07/10/22 15:15 MPV 7.7 fl (6.3-10.7) 07/10/22 15:15 PHA Creatinine Clear 6.72 07/10/22 15:15 Sodium 129 mmol/L (136-146) L 07/10/22 15:15 Potassium 4.5 mmol/L (3.5-5.1) 07/10/22 15:15 Chloride 91 mmol/L (95-114) L 07/10/22 15:15 Carbon Dioxide 25.1 mmol/L (22.0-30.0) 07/10/22 15:15 Anion Gap 17.4 mEq/L (6.0-15.0) H 07/10/22 15:15 BUN 53 mg/dL (9-23) H 07/10/22 15:15 Creatinine 10.50 mg/dL (0.44-1.03) H 07/10/22 15:15 Est GFR ( Amer) 5 mL/Min 07/10/22 15:15 Est GFR (Non-Af Amer) 4 mL/Min 07/10/22 15:15 Glucose 72 mg/dL (70-100) 07/10/22 15:15 Calcium 8.3 mg/dL (8.2-10.2) 07/10/22 15:15 Total Bilirubin 0.6 mg/dL (0.3-1.2) 07/10/22 15:15 AST 15 U/L (10-42) 07/10/22 15:15 ALT 12 U/L (10-60) 07/10/22 15:15 Alkaline Phosphatase 78 U/L (32-92) 07/10/22 15:15 Total Protein 5.2 gm/dL (6.1-7.9) L 07/10/22 15:15 Albumin 2.1 gm/dL (3.2-5.5) L 07/10/22 15:15 Globulin 3.1 gm/dL 07/10/22 15:15 Albumin/Globulin Ratio 0.7 07/10/22 15:15 Lipase 53.0 U/L (22-51) H 07/10/22 15:15 Lipase Cancelled 07/10/22 15:15 Blood Type O Positive 07/10/22 15:10 Microbiology Results Micro: Microbiology - Results from entire visit 07/10/22 15:20 Stool Stool Occult Blood (KARLEE) - Final A&P - Hospitalist Assessment/Plan (1) Anemia: Plan Acute anemia, unknown etiology End-stage renal disease on peritoneal dialysis External hemorrhoids Hyponatremia History of renal transplant 2016 in [place] for liver cirrhosis Plan: Patient will be transfused with PRBCs in the emergency room Monitor H&H and vital signs. I will check iron panel, B12 and RBC folate Consult GI for work-up. I will start IV Protonix. Keep the patient n.p.o., IV fluids CBC CMP tomorrow Consult nephrology for dialysis SCDs for DVT prophylaxis Documented By: Flo Thomson MD 07/10/221735 Signed By: <Electronically signed by Flo Thomson MD> 07/10/22 [address] [facility] Work Phone: [phone]) 521-787702-15-2023 History and physical note Author Flo Thomson [facility] July 10, 2022 5:47pm Note Date/Time July 10, 2022 5:38pm [facility] [address] [place] [address] Hospitalist H&P Signed Patient: Winnie Cai MR#: [id number] : 1985 Acct:[id number] Age/Sex: 37 / F Adm Date: 3 Loc: ER Room: Type: [facility] ER Attending Dr: Copies to: KASI Mueller MD Phillip H Fisher, MD~ HPI DATE OF EXAMINATION: 07/10/22 CHIEF COMPLAINT: Anemia HISTORY OF PRESENT ILLNESS: This is a 37-year-old female who presents to the emergency department for evaluation of low hemoglobin. The Patient states she had labs drawn today and was told to come to the emergency department due to low hemoglobin.? She denies any fever, chills, nausea, vomit, chest pain, shortness of breath, numbness, tingling, rectal bleeding, abdominal pain or any other concerns.? Patient statesin 2014 she had liver transplant due to cirrhosis.? Patient states liver transplant was done in [place].? Patient states she is on peritoneal dialysis x1 year.? Patient states she is pretty compliant with doing her dialysis treatment but she fell asleep last night in which she did not do dialysis last night.? Patient states she does have hemorrhoids.? She denies any active bleeding, she did not miss any rectal bleeding, no hematemesis, is not had a period In years.? Review of Systems Review of Systems All other systems reviewed & are negative unless noted below or in HPI PMFSH Vaccinated for COVID-19?: Yes Medical History (Updated 07/10/22 @ 16:44 by Kelly Carmen APRN) Hypothyroid Surgical History (Updated 07/10/22 @ 16:44 by Kelly Carmen APRN) H/O splenectomy History of appendectomy History of cholecystectomy Liver transplant status received ;over transplant in 2014 Social History Smoking Status: Current every day smoker Substance Use Type: Marijuana Substance Abuse Comment: SOBER X 3 WEEKS. Meds Medications and Allergies Allergies Sulfa (Sulfonamide Antibiotics) Allergy (Verified 07/10/22 14:55) Hives sulfamethoxazole [From Bactrim] Allergy (Verified 07/10/22 14:55) Hives trimethoprim [From Bactrim] Allergy (Verified 07/10/22 14:55) Hives Home Medications levothyroxine 75 mcg tablet 75 mcg PO DAILY 07/31/20 [History Confirmed 07/10/22] metoprolol tartrate 25 mg tablet 25 mg PO DAILY 07/31/20 [History Confirmed 07/10/22] omeprazole 20 mg capsule,delayed release 20 mg PO DAILY 07/31/20 [History Confirmed 07/10/22] nifedipine 30 mg tablet,extended release 24 hr 30 mg PO HS 07/10/22 [History Confirmed 07/10/22] Exam Physical Exam Vital Signs: Temp Pulse Resp BP Pulse Ox O2 Del Method 98.7 F 74 18 119/82 100 Room Air 07/10/22 14:57 07/10/22 14:57 07/10/22 14:57 07/10/22 14:57 07/10/22 14:57 07/10/22 14:57 Narrative: General: cooperative, alert & oriented x3 HEENT: Normal oropharyngeal mucosa without any ulcers or exudates, Conjunctiva normal Lungs: diminished breath sounds bilaterally Heart: normal rate, regular rhythm, S1 normal, S2 normal and no murmurs GI: non-distended, soft, not firm and nontender. No rigidity or rebound. Neuro No obvious new focal deficit Musculoskeletal: normal range of motion Extrem: no cyanosis, no pedal edema Skin: no significant ulcers, no rash noted Psych: appropriate affect. Grossly normal Results Lab Results Labs: Laboratory Last Values Corrected WBC 7.5 X10E3/uL (3.8-11.6) 07/10/22 15:15 RBC 2.06 X10E6/uL (3.60-5.00) L 07/10/22 15:15 RBC Cancelled 07/10/22 15:15 Hgb 6.5 g/dL (11.8-15.4) L 07/10/22 15:15 Hct 19.9 % (34.0-46.4) L* 07/10/22 15:15 MCV 96.6 fl (80-100) 07/10/22 15:15 MCH 31.6 pg (24.7-34.3) 07/10/22 15:15 MCHC 32.7 g/dL (32.0-35.0) 07/10/22 15:15 RDW 16.8 % (11.9-15.3) H 07/10/22 15:15 Plt Count 334 x10E3/uL (150-450) 07/10/22 15:15 MPV 7.7 fl (6.3-10.7) 07/10/22 15:15 PHA Creatinine Clear 6.72 07/10/22 15:15 Sodium 129 mmol/L (136-146) L 07/10/22 15:15 Potassium 4.5 mmol/L (3.5-5.1) 07/10/22 15:15 Chloride 91 mmol/L (95-114) L 07/10/22 15:15 Carbon Dioxide 25.1 mmol/L (22.0-30.0) 07/10/22 15:15 Anion Gap 17.4 mEq/L (6.0-15.0) H 07/10/22 15:15 BUN 53 mg/dL (9-23) H 07/10/22 15:15 Creatinine 10.50 mg/dL (0.44-1.03) H 07/10/22 15:15 Est GFR ( Amer) 5 mL/Min 07/10/22 15:15 Est GFR (Non-Af Amer) 4 mL/Min 07/10/22 15:15 Glucose 72 mg/dL (70-100) 07/10/22 15:15 Calcium 8.3 mg/dL (8.2-10.2) 07/10/22 15:15 Total Bilirubin 0.6 mg/dL (0.3-1.2) 07/10/22 15:15 AST 15 U/L (10-42) 07/10/22 15:15 ALT 12 U/L (10-60) 07/10/22 15:15 Alkaline Phosphatase 78 U/L (32-92) 07/10/22 15:15 Total Protein 5.2 gm/dL (6.1-7.9) L 07/10/22 15:15 Albumin 2.1 gm/dL (3.2-5.5) L 07/10/22 15:15 Globulin 3.1 gm/dL 07/10/22 15:15 Albumin/Globulin Ratio 0.7 07/10/22 15:15 Lipase 53.0 U/L (22-51) H 07/10/22 15:15 Lipase Cancelled 07/10/22 15:15 Blood Type O Positive 07/10/22 15:10 Microbiology Results Micro: Microbiology - Results from entire visit 07/10/22 15:20 Stool Stool Occult Blood (KARLEE) - Final A&P - Hospitalist Assessment/Plan (1) Anemia: Plan Acute anemia, unknown etiology End-stage renal disease on peritoneal dialysis External hemorrhoids Hyponatremia History of renal transplant 2016 in [place] for liver cirrhosis Plan: Patient will be transfused with PRBCs in the emergency room Monitor H&H and vital signs. I will check iron panel, B12 and RBC folate Consult GI for work-up. I will start IV Protonix. Keep the patient n.p.o., IV fluids CBC CMP tomorrow Consult nephrology for dialysis SCDs for DVT prophylaxis Documented By: Flo Thomson MD 07/10/22 1039 Signed By: <Electronically signed by Flo Thomson MD> 07/10/22 [address] [facility] Work Phone: [phone] History of Present illness Narrative* Cody Angel MD - 07/08/2022 2:20 PM EST OLT Note: HEPATOLOGY OUTPATIENT NOTE PRIMARY CARE PHYSICIAN: Frank Pantoja HEPATOLOGY/GI DIAGNOSIS: 1. 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 Post OLT biliary stricture (anastomotic) s/p ERCP October 2015 with stent removal 2015 3. Post OLT Choledocholithiasis s/p balloon sweep November 2016 4. 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 ESRD on PD at home 6. Post OLT HTN 7. Hepatic artery aneurysm 8. Active polysubstance abuse- Actively drinking, smoking both tobacco and THC as well 9. OTHER MEDICAL DIAGNOSIS: 1. Hypothyroidism 2. Depression REASON FOR VISIT: Management of post OLT care and management of immunosuppression HISTORY OF PRESENT ILLNESS: Winnie Cai is a 37 y.o.CF with Alcohol use associated cirrhosis S/p OLT on 12/20/14, Post OLT biliary stricture S/p stenting and removal , post OLT PARIS, Post OLT HTN, ongoing polysubstance abuse here for a follow up with [facility] 10/2020 I have reviewed the medical, surgical, and social history and have updated medication and allergy information in the computerized patient record. Started PD 04/2021, Tolerating it well. Has chronic nausea, fatigue. Continues to drink.smoke, use thc as below Today in clinic the patients denies diarrhea, hair loss, skin rashes, fatigue, jaundice, confusion,weakness. Current IS : CYA 75/50 mg (C2 829 on 01/2022 ), MPA 540 BID- no labs since 01/2022 REVIEW OF SYSTEMS: Constitutional: no fevers, no chills, no weakness. HEENT: no blurring of vision, no diplopia. Respiratory: no sob, no wheezing, no cough. Cardiovascular: no chest pain, no PND/orthopnea, no edema Gastrointestinal: no diarrhea, no abdominal pain, no nausea, no vomiting. Genitourinary: no dysuria Musculoskeletal: no joint pain, ROM not limited. Neurological: no headache, no focal deficits. Psychiatry: no anxiety, no depression. All other systems were reviewed and were negative. ALLERGIES: Allergies Allergen Reactions Fish Allergy Anaphylaxis Bactrim [Sulfamethoxazole-Trimethoprim] Rash Penicillins Rash HOME MEDICATIONS: Current Outpatient Medications Medication Instructions ALPRAZolam (XANAX) 0.5 mg, Oral, NEEDED ASPIRIN EC 325 mg, Oral, DAILY cholecalciferol (VITAMIN D3) 5,000 Units, Oral, DAILY cycloSPORINE modified 75 mg, Oral, EVERY 12 HOURS diphenhydrAMINE (BENADRYL) 25 mg, Oral, NEEDED ferrous sulfate 324 mg, Oral, 2 TIMES DAILY WITH MEALS hydroCHLOROthiazide (HYDRODIURIL) 25 mg, Oral, DAILY Levothyroxine (SYNTHROID) 75 mcg, Oral, DAILY Metoprolol succinate (TOPROL-XL) 25 mg, Oral, DAILY Myfortic 540 mg, Oral, EVERY 12 HOURS NON-STANDARD omeprazole (PRILOSEC) 20 mg, Oral, DAILY Ondansetron (ZOFRAN) 2 mg, Oral, DAILY NEEDED, Takes before morning medications SOCIAL HISTORY: Social Situation: Lives with dog, no children, 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 3 average liquor drink vodka. Illicit's: Smokes MJ joint, 1 per day or gummies FAMILY HISTORY: No history of Liver, GI malignancy in first degree family member, no history of IBD Physical Examination: Measurements: BP 115/73 (BP Location: Left arm, BP Position: Sitting) Pulse 74 Temp 98.6 F (37 C) (Temporal) Wt 65.8 kg (145 lb) BMI 24.89 kg/m Smoking Status Every Day General: The patient is in no acute distress. Eyes: Sclera anicteric. ENT: No oral lesions. Skin: No rash or jaundice, Respiratory: Lungs clear to auscultation. Cardiovascular: Regular rate, no murmurs, no edema b/l. Abdomen: Soft, Scar+, non-tender, liver , spleen not palpable, no ascites. PD cathter in place Extremities: No muscle wasting, no gross arthritic changes. Neurologic: Alert and oriented, cranial nerves grossly intact LABS Lab Results Component Value Date WBC 6.1 02/18/2022 HGB 8.8 02/18/2022 HCT 27.2 02/18/2022 MCV 96.5 10/06/2020 Lab Results Component Value Date GLUCOSE 82 02/18/2022 CALCIUM 8.5 02/18/2022 CO2 27.3 02/18/2022 BUN 33 02/18/2022 Lab Results Component Value Date INR 1.2 (H) 12/06/2016 INR 1.1 12/05/2016 INR 1.1 12/04/2016 Lab Results Component Value Date ALT 14 02/18/2022 AST 12 02/18/2022 GGT 247 02/18/2022 ALKPHOS 93 02/18/2022 No results found for: TACROLIMUS IMAGING: ENDOSCOPY REPORTS/PATHOLOGY REPORTS: Liver Bx 08/09/19: Pathologic Diagnosis A. Liver 3 years and 4 months status post transplantation, biopsy: Steatohepatitis with cholestasis, focal dense portal inflammation, and extensive bridging fibrosis ASSESSMENT/PLAN: Winnie Cai is a 37 y.o.CF with Alcohol use associated cirrhosis S/p OLT on 12/20/14, Post OLT biliary stricture S/p stenting and removal , post OLT PARIS, Post OLT HTN, ongoing polysubstance abuse here for a follow up with [facility] 10/2020 1. Status post OLT on 12/20/14: - Etiology for CLD: Alcohol use associated cirrhosis - CMV status: D?/R+, EBV IgG D? /R- , HBcAb: D? / R- - Graft functions appear to be within normal limits but she has Bridging fibrosis already due to continued etoh use - Immunosuppressive medication regimen: - CYA 75/50 mg BID , MPA 540 mg BID. Expect to continue same dose CYA. Will likely drop MPA dose iflabs stable- Will check labs today. She took her CYA at noon and hence it will be a rough C2 level.-CBC,BMP,Hepatic panel, Pt/INR, CNI trough 2. ESRD: - On PD 3. Post OLT HTN: - controlled with meds per nephrogist 4. Polysubstance abuse: - Still continuing 5. Hepatic artery aneurysm: - Needs CTA to assess.Pt agreeable to get study done Post LT preventative care: - Dermatology: does not see one - Mammogram:not due - Pap smear: done 2020 - Lipids/Dyslipidemia: LDL 95, TG 65 on 01/2022 - HbA1c: none since 2014, will order - CKD: Albumin/Protein ration- ; UA- on PD - DEXA: Address at 2 year sp post OLT - Immunization: - Immunization History Administered Date(s) Administered COVID-19 vaccine, mRNA, Pfizer, 0.3 ML 08/31/2020, 09/20/2020 HIB, Unspecified Formulation 12/28/2014 Influenza Vaccine 04/09/2018 Meningococcal Vaccine IM (Conjugate) 12/28/2014 Pneumococcal Conjugate 13-valent vaccine 12/28/2014 - COVID: as above - PCV13/PPV23: done 2014, due to repeat and is getting it done - Hep A/ Hep B: Immune to HaV, not to HBV, getting vaccine now and is on 06/28 - Flu: done 2021 - Colonoscopy: not due Cody Angel M.D. Instructional Resource Teacher of Clinical Medicine Gastroenterology, Hepatology, and Nutrition Pager :[phone] Pete Giles RN - 07/08/2022 2:20 PM EST Images from the original note were not included. PREP SHEET FOR LIVER TRANSPLANT SURGERY (LIVER) CLINIC APPOINTMENT Patient Name: Winnie Cai Date of Transplant: 12/20/2014. Primary Disease: Alcoholic Cirrhosis Transplant Surgeon: Transplant [facility] Barrel Assembly Cleaner: Joseph Mcbride Finished Hardware Erector: Pete Giles Primary Care physician: Frank Pantoja Reason for Visit Today: Liver transplant surgical follow up appointment. Winnie Cai is now 5 years, 10 months status post her Liver transplant. = CMV PCR : Lab Results Component Value Date CMVPCR <119 11/26/2016 CMVPCR <69 11/26/2016 CMVPCR <119 05/03/2015 CMVPCR <69 05/03/2015 IMMUNOSUPPRESSION AND LABS: Current Immunosuppressive Medication(s) Immunosuppressive Agents cycloSPORINE modified 25 MG capsule TAKE 3 CAPSULES BY MOUTH EVERY 12 HOURS Myfortic [address] Take 3 tablets by mouth every 12 hours. I/S levels: Lab Results Component Value Date CYCLOSPORIN 729 10/06/2020 CYCLOSPORIN2 602 07/28/2020 CYCLOSPORIN2 557 07/23/2019 CYCLOSPORIN2 500 05/12/2018 [id number] 829 02/18/2022 [id number] 674 01/22/2021 [id number] 928 11/16/2020 Lab Results Component Value Date SIROLIMUS none detected 2016 Lab Results Component Value Date EVERTRGHMANE none detected 2016 EVERTRGHMANE none detected 01/12/2015 Lab Results Component Value Date TACROTRGHMAN none detected 2016 Current lab frequency: Monthly at: [facility] [place] [id number] Change in lab frequency / new order today: No Labs needed in clinic today? Yes All labs needed COORDINATOR NOTES: No labs since Feb 14 Had Liver Biopsy 07/2019 Is now on dialysis The liver shows a vaguely nodular architecture (H&E). There is severe steatosis (approximately 75%), numerous wellformed Hailey Denk bodies, clusters of ballooned hepatocytes and foci of parenchymal inflammation. There is a dense portal and/septal based infiltrate, predominantly lymphocytic, extending slightly into the adjacent parenchyma. No definitive evidence of endothelialitis is present. In addition, the liver parenchyma shows cholate stasis with hepatocyte rossetting (as supported by CK7 immunostain). Bile ducts are present in 7 out of 11 portal tracts; there is bile ductular reaction. Trichrome stain shows extensive bridging fibrosis, as well as striking pericellular and perisinusoidal fibrosis. In summary, the findings shows a mixed steatohepatitis and biliary-type patterns of injury, in keeping with the patient's history of alcohol intake and biliary obstruction. Of note, the focal dense portal inflammation is more than that accounted for steatohepatitis alone; a component of acute rejection cannot be entirely excluded. Superimposed viral hepatitis and drug-induced liver injury are in the histologic differential. Dr. Guzman reviewed digital * Altaf Marrero RN - 07/08/2022 2:20 PM EST Images from the original note were not included. Nursing Assessment In Clinic (see Clinic Prep Sheet for additional information) Patient is accompanied to clinic today by: self Did patient require a wheelchair or medical transport for appointment: no Any changes in address or contact information: no Insurance on file correct: yes Currently employed: no VITALS BP Readings from Last 3 Encounters: 07/08/22 115/73 10/06/20 (!) 188/114 07/28/20 (!) 161/107 Pulse Readings from Last 3 Encounters: 07/08/22 74 10/06/20 69 07/28/20 73 Wt Readings from Last 6 Encounters: 07/08/22 65.8 kg (145 lb) 10/06/20 65.8 kg (145 lb) 07/28/20 66.2 kg (146 lb) 08/24/19 71.2 kg (157 lb) 08/09/19 71.8 kg (158 lb 3.2 oz) 07/23/19 69 kg (152 lb 3.2 oz) Body mass index is 24.89 kg/m . Lab Results Component Value Date GLUCOSE 82 02/18/2022 Lab Results Component Value Date HGBA1C 4.7 07/04/2015 IMMUNOSUPPRESSION Current Immunosuppressive Medication(s) Immunosuppressive Agents cycloSPORINE modified 25 MG capsule TAKE 3 CAPSULES BY MOUTH EVERY 12 HOURS Myfortic [address] Take 3 tablets by mouth every 12 hours. ADDITIONAL INFORMATION: [facility] [address] [facility] [id number] - [place] [address] - [address] [facility] [address] [facility] [address] [facility] [id number] - [place] [address] - [address] [facility] [id number] ROS and SCREEN: Chest Pain: negative Cough: negative SOB: negative Abd Pain: negative Nausea: Positive, taking zofran Vomiting: negative Diarrhea: Positive, since starting dialysis Constipation: negative Dysuria: Positive, on dialysis Edema: negative Tremors: negative Headaches: negative Wound issues: negative Alcohol consumption: Yes, 1-2 drinks a week Cigarette smoking, smokeless tobacco or vaping/e-cigarette use: Yes, cigarettes Marijuana (any form), CBD oil or street drug use: Yes, marijuana QUESTIONS OR CONCERNS TO ADDRESS WITH PHYSICIAN: documented in this encounterSum[facility] Instructions* Patient Instructions* Altaf Marrero RN - 07/08/2022 2:20 PM EST ,Post OLT wrap up: - Continue transplant medications at the same dose. - Continue to work on a healthy diet and avoid fast foods/salty foods/foods high in sugar/fat. - Check blood pressures at home regularly with a home blood pressure monitor. - Ensure yearly dermatology follow up for skin cancer screening and check your skin for new lesionsweekly. - Will order CT scan abd for hepatic artery - Return to clinic 01/06/2023 as scheduled Other general post-LT care: a) Shoes, socks, long-sleeve shirts, and long pants should be worn for activities that will involvesoil exposure and tick exposure and also to avoid unnecessary sun exposure. b) During periods of maximal immunosuppression, LT recipients should avoid crowds to minimize exposures to respiratory illnesses. c) Avoid the consumption of water from lakes and zuniga d) Work in high-risk areas, such as construction, animal care settings, gardening, landscaping, and[employer], should be reviewed with the transplant team to develop appropriate strategies for the prevention of high-risk exposure e) Avoid unpasteurized milk products and raw and undercooked eggs and meats (particularly uncooked pork, poultry, fish, and seafood f) LT recipients should avoid high-risk pets, which include rodents, reptiles, chicks, ducklings, and birds g) Travel by LT recipients, especially to developing countries, should be reviewed with the transplant team a minimum of 2 months before departure to determine optimal strategies for the reduction oftravel related risk h) Take precautions to prevent vector (including mosquito) -borne diseases. These include avoiding going out during peak mosquito feeding times (lisa and dusk) and using N,D-tghfdac-dyjd-toluamide-containing insect repellants I) Undertake a thorough review of hobbies to assess potential infectious disease risks, particularly those associated with outdoor hobbies J) It is important to avoid unnecessary sun avoidance and apply sun protection through the use of asun block with a sun protection factor of at least 15 and protective clothing. Also examine skin afshin regular basis and report any suspicious or concerning lesions to their physicians. k) Because of the strong association of lung, head, and neck cancers with smoking, the sustained cessation of smoking is the most important preventative intervention. documented in this encounterOS[facility]-13-2023 Miscellaneous Notes* Result Encounter Note - Cody Angel MD - 07/08/2022 2:20 PM EST Hey Her hemoglobin is 6.9% she probably needs to go somewhere and get a blood transfusion if her labs are consistent Could you contact her? Thanks C documented in [facility]OS[facility]23 Progress note* Result Encounter Note - Cody Angel MD - 07/08/2022 2:20 PM EST Hey Her hemoglobin is 6.9% she probably needs to go somewhere and get a blood transfusion if her labs are consistent Could you contact her? 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 Patient fell and fractured her right humerus and was referred to the liver clinic for surgical clearance before surgery. Patient is on cyclosporine 75 mg daily and CellCept [address] abdomen showed normal bile ducts and postsurgical changes consistent with history of liver transplant. AST ALT were normal in 09/2023 + Ongoing alcohol use, patient drinks 10 drinks a week. -Will recheck liver enzymes. Patient was counseled about the importance of alcohol abstinence. There is no clinical or laboratory or radiologic evidence of abnormal liver/graft function. Patient is at low risk and does not have contraindication for surgery from the liver standpoint -Regarding posttransplant care: Will refer to dermatology for skin cancer screening, will arrange for DEXA scan for screening of osteoporosis, will check HAV and HBV serologies to determine the need for vaccinations. Patient was recommended to follow-up with PCP regarding other vaccinations. [facility] Work Phone: Consult note Author Pedro Floyd [facility] July 10, 2022 8:19pm Note Date/Time July 10, 2022 8:19pm [facility] [address] [place] [address] Nephrology Consult Note Signed Patient: Winnie Cai MR#: [id number] : 1985 Acct:[id number] Age/Sex: 37 / F Adm Date: 3 Loc: Room: [address] [place] [address] Type: ADM IN Attending Dr: Flo Thomson MD Copies to: MD Flo Ferrer MD Phillip H Fisher, MD~ Providers Consult Date: 07/10/22 Requesting Provider: Flo Thomson MD Primary Care Provider: Frank Pantoja MD HPI Reason for Consult: ESRD management History of Present Illness: This is a 37-year-old female with a medical history of ESRD, alcoholic liver cirrhosis s/p liver transplant, anemia, secondary hyperparathyroidism, hypertension and GERD was sent to the emergency room due to the worsening symptomatic anemia. 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 She currently doesa home peritoneal dialysis with [facility]. Patient was found to have a worsening anemia on outpatient labs done by the PCP with hemoglobin 6.9 g/dL. Our office will contact you and then we repeat the hemoglobin was 6.2 g/dL. Patient also reported to have a generalized fatigue so was advised to go to emergency room. Patient labs reviewed from the outpatient dialysis unit that showed her hemoglobin was 11.1 g/dL on April 30, 2022. It dropped down to 9.1 g/dL on June 02. It was repeated this month on July 03 and it was 8.1 g/dL. Patient was receiving Epogen 40,000 unit until April and it was reduced to 34,000 as her hemoglobin was 11.1 g/dL. Due to the worsening anemia the dose ofthe Epogen was again increased to 40,000 unit in May 2022 but she continues to have a worsening anemia despite high-dose of the Epogen. Patient has been compliant with her dialysis but she missed last night due to sleep and fatigue. Nephrology is consulted for ESRD management during the hospital stay. Patient was seen and examined at bedside feeling weak. Review of Systems Review of Systems All other systems reviewed & are negative unless noted below or in HPI Review of systems: Cardiovascular: denies any chest pain, palpitation Pulmonary: denies any cough, hemoptysis Gastrointestinal: denies any nausea, vomiting, diarrhea Neurological :denies any headache, numbness, weakness Endocrine: denies any polyuria, polydipsia Dermatological: denies any itching or rash PMFSH Vaccinated for COVID-19?: Yes Medical History (Updated 07/10/22 @ 20:05 by Pedro Floyd MD) Hypothyroid Surgical History (Updated 07/10/22 @ 20:05 by Pedro Floyd MD) H/O splenectomy History of appendectomy History of cholecystectomy Liver transplant status received ;over transplant in 2014 Social History Smoking Status: Current every day smoker Tobacco Type: cigarettes Substance Use Type: None Substance Abuse Comment: SOBER X 3 WEEKS. Meds Medications & Allergies Allergies Sulfa (Sulfonamide Antibiotics) Allergy (Verified 07/10/22 14:55) Hives sulfamethoxazole [From Bactrim] Allergy (Verified 07/10/22 14:55) Hives trimethoprim [From Bactrim] Allergy (Verified 07/10/22 14:55) Hives Home Medications levothyroxine 75 mcg tablet 75 mcg PO DAILY 07/31/20 [History Confirmed 07/10/22] metoprolol tartrate 25 mg tablet 25 mg PO DAILY 07/31/20 [History Confirmed 07/10/22] omeprazole 20 mg capsule,delayed release 20 mg PO DAILY 07/31/20 [History Confirmed 07/10/22] alprazolam 0.5 mg tablet (Xanax) 0.5 mg PO QHS PRN Anxiety 07/10/22 [History Confirmed 07/10/22] calcium acetate(phosphat bind) 667 mg capsule 50 mg PO TID.LUNCH.SUPPER.HS 07/10/22 [History Confirmed 07/10/22] cyclosporine modified 25 mg capsule 75 mg PO QAM 07/10/22 [History Confirmed 07/10/22] cyclosporine modified 50 mg capsule 50 mg PO HS 07/10/22 [History Confirmed 07/10/22] escitalopram oxalate 10 mg tablet 15 mg PO QHS 07/10/22 [History Confirmed 07/10/22] gentamicin 0.1 % topical cream 1 applic topical DAILY 07/10/22 [History Confirmed 07/10/22] losartan 25 mg tablet 25 mg PO BID 07/10/22 [History Confirmed 07/10/22] nifedipine 30 mg tablet,extended release 24 hr 30 mg PO HS 07/10/22 [History Confirmed 07/10/22] ondansetron 4 mg disintegrating tablet 4 mg PO Q8H PRN Nausea 07/10/22 [History Confirmed 07/10/22] Active Medications: Active Medications Gentamicin Sulfate (Gentamicin 0.1% Cream 15 Gm Tube) 1 applic TOPICAL DAILY [facility] Stop: 07/11/23 08:59 Sodium Chloride (0.9 % Sodium Chloride) 500 mls @ 20 mls/hr IV PROTOCOL PRN PRN Reason: BLOOD TRANSFUSION Stop: 07/11/22 16:20 Dextrose/Sodium Chloride (5 % Dextrose-0.9 % Nacl) 1,000 mls @ 75 mls/hr IV .[id number] [facility] Stop: 07/10/23 17:44 Levothyroxine Sodium (Levothyroxine 75 Mcg Tablet) 75 mcg PO DAILY@0630 [facility] Stop: 07/11/23 06:29 Metoprolol Tartrate (Metoprolol Tartrate 25 Mg Tablet) 25 mg PO DAILY [facility] Stop: 07/11/23 08:59 Nifedipine (Nifedipine Er.24hr 30 Mg Tab.Er.24) 30 mg PO HS [facility] Stop: 07/10/23 21:59 Pantoprazole Sodium (Pantoprazole 40 Mg Vial) 40 mg IV-PUSH BID [facility] Stop: 07/10/23 20:59 Sodium Chloride (Sodium Chloride 0.9 % 10 Ml Syringe) 0 ml IV-PUSH PRN PRN PRN Reason: Flush Stop: 07/10/23 14:54 Sodium Chloride (Sodium Chloride 0.9 % 10 Ml Syringe) 10 ml IV-PUSH PRN PRN PRN Reason: Flush Stop: 07/10/23 17:41 Sodium Chloride (Sodium Chloride 0.9 % 10 Ml Vial.Pf) 10 ml INJECTION PRN PRN PRN Reason: Dilution Stop: 07/10/23 17:41 Exam Physical Exam Vital Signs: Temp Pulse Resp BP Pulse Ox O2 Del Method 98.7 F 66 16 144/99 H 98 Room Air 07/10/22 14:57 07/10/22 17:30 07/10/22 17:30 07/10/22 17:30 07/10/22 17:30 07/10/22 14:57 Narrative: General: Appears comfortable and not in distress Heart: S1-S2, no rub Lung: Bilateral air entry, no wheezing or crackles Abdomen: Soft, positive bowel sounds Extremities: No edema, no cyanosis Head: Atraumatic, normocephalic Ear: No gross hearing Deficit or external ear redness Eyes: No pallor or redness Neck: No JVD or visible mass Skin: No rashes or bruises 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 I have reviewed the report(s) and am incorporating any findings in the treatment plan of this patient where applicable. A&P - Nephrology Assessment/Plan (1) Acute on chronic anemia: Plan: She has a acute on chronic anemia due to the unclear etiology. Differential diagnosis hemolytic anemia versus blood loss anemia versus erythropoietin resistant anemia. 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 She has been on dialysis since April 2021 and currently uses [facility] at home (3) Liver transplant recipient: Plan: She had alcoholic liver cirrhosis underwent a liver transplant in 2015 at [facility]. She currently takes mycophenolate and cyclosporine. (4) Secondary hyperparathyroidism: Plan: She has a secondary hyperparathyroidism currently takes calcium acetate (5) Hyponatremia: Plan: She has hyponatremia due to the CKD (6) Benign hypertension with end-stage renal disease: Plan: She has a hypertension and currently takes losartan and nifedipine at home Plan * Will do CAPD during her hospital stay with 1.5% dextrose alternate with 2.5% dextrose every 4 hour * Transfused 2 unit of PRBC. * Check haptoglobin, LDH, peripheral smear, iron studies B12 and folate level. * Consider GI consult to rule out blood loss anemia due to acute GI bleed * Continue home dose of the nifedipine and losartan * Continue home dose of calcium acetate * Check renal function to be monitored up output * Thanks for consult. We will continue to follow with you. Please feel free to call us with any question. Documented By: Pedro Floyd MD 07/10/221946 Signed By: <Electronically signed by Pedro Floyd MD> 07/10/222018 [facility] Work Phone: Discharge summary Author Beba Ng [facility] July 12, 2022 1:05pm Note Date/Time July 12, 2022 1:05pm [facility] [address] [place] [address] Discharge Summary Signed Patient: Winnie Cai MR#: [id number] : 1985 Acct:[id number] Age/Sex: 37 / F Adm Date: 3 Loc: Room: [address] [place] [address]: Beba Ng MD Copies to: MD Frank Cruz MD~ Providers Date of Discharge: 07/12/22 Discharging Provider: Beba Ng Primary Care Provider: Frank Pantoja Consults: 07/10/22 17:42 Consult to Gastroenterology Routine Consult to Nephrology Routine 07/11/22 08:59 Consult to Hematology Routine Discharge Diagnosis (1) Acute on chronic anemia: (2) ESRD (end stage renal disease) on dialysis: (3) Liver transplant recipient: (4) Secondary hyperparathyroidism: (5) Hyponatremia: (6) Benign hypertension with end-stage renal disease: (7) Hypokalemia: (8) Hypomagnesemia: Final Diagnosis Final Discharge Diagnosis: As above Summary Hospital Course Hospital course: Winnie is a 37-year-old female who presented to the emergency department on 07/10/22 for evaluation of low hemoglobin. The Patient states she had labs drawn and was told to come to the emergency department due to low hemoglobin.? She denies any fever, chills, nausea, vomit, chest pain, shortness of breath, numbness, tingling, rectal bleeding, abdominal pain or any other concerns. In ED, found to have Hb of 6.5. Has 2 units of pRBC during hospital stay. GI and hematology were consulted. Patient underwent EGD/Colonoscopy on 07/12/22 to rule out GI etiology of her anemia, EGD WNL as reported, Colonoscopy showed small rectal polyp which was removed, next colonoscopy in 5 years. Seen by hematology,Differential diagnosis for her anemia include pure red cell aplasia due to anti-erythropoiesis stimulating agent antibodies versus bone marrow suppression due to other conditions including viral infection. Advised to follow up with hem/onc as outpatient for further workup and evaluation. Patient remained hemodynamically stable. Hb as of today around 10.4. Leukocytosis likely reactive. Remained afebrile with stable vitals. Given supplements of KCL and Magwhile here. Cleared by GI/Hematology/nephrology for discharge. Discussed with patient at bedside, she is feeling better and comfortable with discharge plan. Discussed her findings and follow ups, patient verbalized understanding to the plan. Patient has multiple complex medical issues as listed above and others that are not listed. All appear to be stable at this time. Patient is feeling significantly better and requesting to be discharged and feeling comfortable with this plan. I do not have any clear or strong clinical justification to extend inpatient hospitalization. Patient however will require close and the frequent monitoring as well as additional work-up, investigation and therapeuticintervention that could take place from this point on post discharge. That is to prevent relapse, decompensation, rehospitalization and other medical implications. Outpatient follow up as directed for continuity of care. Verbal and written discharge instructions will be provided to the patient. Condition Condition at Discharge: Stable Time Spent with Patient Time spent providing/coordinating discharge services (# min): 35 Surgeries and Procedures Operation Date: 07/12/22 10:45 Actual Procedures p DH EGD/Colonoscopy W/ BXS & POLYPECTOMY(Not Applicable) - Gui Rodas MD Diagnostic Studies Completed and Pending Studies Pending studies at discharge: 07/10/22 22:10 Urine Culture Stat Preliminary micro results at discharge 07/10/22 22:10 Urine Culture - Preliminary Urine - Clean-Voided Midstream 50,000 colonies/ml mixed bacterial skin contaminants 1 Day Labs on day of discharge: 07/12/22 09:44: Potassium 3.2 L 07/12/22 05:08: Magnesium 1.1 L 07/12/22 05:08: PHA Creatinine Clear 7.79, Sodium 132 L, Potassium 2.7 L*, Chloride 99, Carbon Dioxide 21.7 L, Anion Gap 14.0, BUN 41 H, Creatinine 9.17 H D, Est GFR ( Amer) 6, Est GFR (Non-Af Amer) 5, Glucose 135 H, Calcium 8.6 07/12/22 05:08: Corrected WBC 13.0 H, RBC 3.34 L, Hgb 10.4 L, Hct 31.5 L, MCV 94.3, MCH 31.3, MCHC 33.1, RDW 16.3 H, Plt Count 354, MPV 7.8 Exam Physical Exam Vital Signs: Temp Pulse Resp BP Pulse Ox O2 Del Method 99 F 63 18 124/82 98 Room Air 07/12/22 12:24 07/12/22 12:24 07/12/22 12:24 07/12/22 12:24 07/12/22 12:24 07/12/22 12:24 Narrative: Const General: cooperative, comfortable, in no acute distress HEENT Normal oropharyngeal mucosa without any ulcers or exudates Eyes: Conjunctiva normal Pulmonary Auscultation: clear to auscultation , no crackles, no wheezes Cardiovascular Rate: normal rate Rhythm: regular rhythm Heart Sounds: S1 normal, S2 normal and no murmurs GI Inspection: non-distended Palpation: soft, not firm and nontender. No rigidity or rebound. Deferred Neuro General: alert, awake and oriented x3. No obvious new focal deficit Musculoskeletal: normal range of motion Extrem General: no cyanosis, no pedal edema Skin: no significant ulcers, no rash noted Psych Appearance: appropriate affect. Grossly normal Discharge Plan Discharge Plan Patient Disposition: Home Activity: No Activity Restriction Diet: Renal Additional Instructions: Continue Peritoneal Dialysis as ordered. Prescriptions: Continued levothyroxine 75 mcg tablet 75 mcg PO DAILY Patient Comments: TAKE 1 TABLET BY MOUTH ONCE DAILY omeprazole 20 mg Capsule,Delayed Release(Dr/Ec) 20 mg PO DAILY metoprolol tartrate 25 mg Tablet 50 mg PO DAILY nifedipine 30 mg tablet extended release 24hr 30 mg PO HS Patient Comments: TAKE 1 TABLET BY MOUTH ONCE DAILY, HOLD IF BP < 140/90 cyclosporine modified 25 mg capsule 75 mg PO QAM Patient Comments: TAKE 3 CAPSULES BY MOUTH EVERY 12 HOURS escitalopram oxalate 10 mg tablet 15 mg PO QHS Patient Comments: TAKE 1 & 1/2 (ONE & ONE-HALF) TABLETS BY MOUTH ONCE DAILY calcium acetate(phosphat bind) 667 mg capsule 50 mg PO TID.LUNCH.SUPPER.HS Patient Comments: TAKE 2 CAPSULES BY MOUTH THREE TIMES DAILY WITH MEALS AND 1 CAP WITH SNACKS gentamicin 0.1 % cream 1 applic TOPICAL DAILY Patient Comments: APPLY CREAM TOPICALLY ONCE DAILY DIRECTED ondansetron 4 mg tablet,disintegrating 4 mg PO Q8H PRN (Reason: Nausea) Patient Comments: DISSOLVE 1 TABLET IN MOUTH EVERY 8 HOURS NEEDED FOR NAUSEA FOR VOMITING alprazolam [Xanax] 0.5 mg Tablet 0.5 mg PO QHS PRN (Reason: Anxiety) losartan 25 mg Tablet 25 mg PO BID cyclosporine modified 50 mg Capsule 50 mg PO HS Follow Up: Gui Rodas MD [Active Staff] - 09/12/22 1:30 pm (You have been scheduled for a follow up appointment with Gastroenterology for the following date and time, please call to reschedule if needed.) Roberto Pollack MD [Active Staff] - 07/16/22 3:45 pm Frank Pantoja MD [Primary Care Provider] - (The office is aware of your hospital stay and need for follow up, in 1 week, the office will call you to schedule. Please call the office if you have not heard from them by the next business day.) Documented By: Beba Ng MD 07/12/22 12 57 Signed By: <Electronically signed by Beba Ng MD> 07/12/22 1305 [facility] Work Phone: Evaluation note* Diagnosis Benign hypertension with CKD (chronic kidney disease) stage V (HCC) Benign hypertensive kidney disease with chronic kidney disease stage V or end stage renal disease CKD (chronic kidney disease) stage 5, GFR less than 15 ml/min (HCC) Chronic kidney disease, Stage V Proteinuria, unspecified type documented in this encounter [facility] Work Phone: evaluation noteNo assessment information available [facility] Work Phone: evaluation note* Diagnosis Liver replaced by transplant- Primary Abnormal blood chemistry Other abnormal blood chemistry Aftercare following organ transplant Immunosuppressed status Unspecified disorder of immune mechanism High risk medication use Encounter for long-term (current) use of other medications [facility] Onset Date Resolution Status Acute on chronic anemia acut e Anemia acute Benign hypertension with end-stage renal disease acute ESRD (end stage renal disease) on dialysis acute History of liver transplant acute Hyponatremia acute Liver transplant recipient a cute Secondary hyperparathyroidism acute [facility] Work Phone: Evaluation note* Diagnosis Anemia due to chronic kidney disease, on chronic dialysis (HCC)- Primary Stage 5 chronic kidney disease on chronic dialysis (HCC) Alcoholic cirrhosis of liver without ascites (HCC) Alcoholic cirrhosis of liver Iron overload Other disorders of iron metabolism [place] Diagnosis Onset Date Resolution Status Dehydration acute Hyponatremia acute Rhabdomyolysis acute Weakness acute [facility] Work Phone: Evaluation note* Diagnosis Onset Date Resolution Status Anemia of renal disease acut e Dehydration acute ESRD (end stage renal disease) on dialysis acute History of peritoneal dialysis acute History of shoulder fracture acute Liver transplant status acut e Peritoneal dialysis catheter mechanical complication acute Rhabdomyolysis acute Weakness acute [facility] Work Phone: Evaluation note* Diagnosis Onset Date Resolution Status Dehydration resolved Closed fracture of right proximal humerus acute [facility] Work Phone: Evaluation note* Diagnosis Onset Date Resolution Status ESRD (end stage renal disease) on dialysis acute Dehydration resolved Closed fracture of right proximal humerus acute Complications, dialysis, catheter, mechanical acute ESRD (end stage renal disease) on dialysis acute [facility] Work Phone: Evaluation note* Diagnosis Onset Date Resolution Status ESRD (end stage renal disease) on dialysis acute Dehydration resolved Closed fracture of right proximal humerus acute [facility] Work Phone: Hospital Discharge instructions Additional Instructions Continue Peritoneal Dialysis as ordered.[facility] Work Phone: Hospital Discharge instructions Additional Instructions Do not eat or drink past midnight into Friday, may take morning meds with small sips of water. Arrive to [facility] at 6:00 am FridayDecember 11 for surgery. 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 DO NOT apply ice directly to the skin. Always place a towel between the ice pack and skin. Low grade temperatures are common after surgery. Please notify the office if your temperature exceeds 101.5 degrees Fahrenheit. DO NOT make critical decisions or sign legal papers for the first 24 hours after surgery or while taking pain medication. MEDICATIONS AND DIET: You may resume all pre-operative medications unless otherwise specified. Only take pain medication as prescribed, as needed. We encourage ambulation to help prevent blood clots from developing in your legs You should take pain medication with food. It is not uncommon to have nausea or an upset stomach after surgery. Medication refills require a 48 hour notice; no exceptions will be made. NO REFILLS will be authorized over the weekend. A maximum of 4g (4,000mg) of acetaminophen can be taken within a 24 hour period. Ensure no more than this is taken in a day If you have a reaction to your medications, stop taking them and call the office immediately. If you develop a significant rash, or have trouble breathing, call 911 or go immediately to the nearest emergency room. ACTIVITY: Your operative extremity is in shoulder sling. Please wear this as all times. You may remove this for bathing purposes. You may also come out of the sling 2-3 times per day and work on gentle range of motion to your elbow. Wear the sling while sleeping at night. You are non-weightbearing on your operative arm. DRESSING/BANDAGES: Your surgical bandage may show some drainage over the first 24-48 hours following surgery. You may remove your dressing on post-operative day 7 If your bandage becomes saturated, please notify the office. You may shower 5 days after your surgery with your incision on. Ensure there is a tight seal around your dressing to make sure your incision stays dry. Once the bandage is off on post-operative day 7, you may shower if there has been no drainage from the incision for 24 hours. For showering, simply allow water to wash over the incision. Do not scrub the area. DO NOT submerge the incision in a bath, hot tub, swimming pool, or any other body of water for the first 4 weeks following surgery. Do not put any lotions or creams on the incision for the first 4-6 weeks after the surgery FOLLOW UP: Your first post-operative appointment should already be scheduled for you. If you do not already have a post-operative appointment, call the office to schedule an appointment. You should be seen in the office 10-14 days following your surgery unless otherwise specified. If you notice any increasing swelling, wound redness, or drainage, please contact our office immediately. Chuy Mojica DO Orthopedic Surgeon [facility] Office: [address] [place] [address] Office number: [phone] [facility] Work Phone: Summary Purpose Family History No Family History Records Found Relationship Condition Age at Onset Recorded Date/T kristen family member Unknown Relationship Condition Age at Onset Recorded Date/T kristen family member Unknown father Unknown family medical history Unknown mother Unknown family medical history Unknown Relationship Condition Age at Onset Recorded Date/T kristen Not Specified No pertinent family history Unknown Advance Directives No Advanced Directives Records FoundDocuments on File Type Date Recorded 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 ACP-Advance Directive ACP-Power of Chief Client Officer Advance Directive Response Recorded Date/ Time Advance Directives No July 31 2:27pm Advance Directive Response Recorded Date/ Time Advance Directives No July 31 1:27pm Documents on File Type Date Recorded 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 Power of Chief Client Officer 11/28/2014 12:00 AM Date Received = Date Executed Latest Code Status on File Code Status Date Activated Date Inactivated Comments Full Code 11/25/2016 7:37 PM 12/06/2016 5:15 PM Code Status History Code Status Date Activated Date Inactivated Comments Full Code-Unverified 05/16/2015 9:07 PM 05/18/2015 12: 03 PM Full Code 01/13/2015 9:42 PM 02/16/2015 3:37 PM Full Code 12/20/2014 6:32 AM 01/06/2015 9:03 PM Full Code 12/04/2014 12:00 AM 12/20/2014 6:32 AM Advance Directive Response Recorded Date/ Time Advance Directives No September 07, 2 024 10:14am Advance Directive Response Recorded Date/ Time Advance Directives No January 9:48am Advance Directive Response Recorded Date/ Time Advance Directives No January 8:48am Advance Directive Response Recorded Date/ Time Advance Directives No August 10, 2 025 9:49am Reason for Referral Status Reason Specialty Diagnoses / Procedures Referred By Contact Referred To Contact Pending Review Radiology Diagnoses Benign hypertension with CKD (chronic kidney disease) stage V (HCC) CKD (chronic kidney disease) stage 5, GFR less than 15 ml/min (HCC) Proteinuria, unspecified type Procedures US RENAL COMPLETE Tammi Chilel MD [address], [facility] [address] [place] [address] Specialty Diagnoses / Procedures Referred By Contkaylan t Referred To Contact Diagnoses Liver transplant status Procedures CT ABDOMEN WITH CONTRAST MN CT SCAN OF ABDOMEN CONTRAST Cody Angel MD [address] [facility] [address] [place] [address] Referral ID Status Reason Start Date Expiration Date V isits Requested Visits Authorized [id number] New Request 07/08/2022 08/02/2023 1 1 Chief Complaint and Reason for Visit Chief Complaint R10.9 Chief Complaint R10.9 Z94.4 R79.9 D84.9 Z48.298 R79.89 D63.1;anemia;CKD Chief Complaint Anemia abnorm labs Reason for Visit Acute on chronic ane iban Anemia Benign hypertension with end-stage renal disease ESRD (end stage renal disease) on dialysis History of liver transplant Hyponatremia Liver transplant recipient Secondary hyperparathyroidism Chief Complaint not eating, ill Reason for Visit Dehydration Hyponatremia Rhabdomyolysis Weakness Chief Complaint not eating, ill not eating, ill not eating, ill not eating, ill not eating, ill not eating, ill not eating, ill not eating, ill not eating, ill not eating, ill not eating, ill not eating, ill Reason for Visit Anemia of renal dise ase Dehydration ESRD (end stage renal disease) on dialysis History of peritoneal dialysis History of shoulder fracture Liver transplant status Peritoneal dialysis catheter mechanical complication Rhabdomyolysis Weakness Chief Complaint not eating, ill not eating, ill not eating, ill not eating, ill not eating, ill not eating, ill not eating, ill not eating, ill not eating, ill not eating, ill not eating, ill not eating, ill S42.201A - Unspecified fracture of upper end of ri HOSP F/U RT HUMERUS FX WX Reason for Visit Dehydration Closed fracture of right proximal humerus Chief Complaint not eating, ill not eating, ill not eating, ill not eating, ill not eating, ill not eating, ill not eating, ill not eating, ill not eating, ill not eating, ill not eating, ill not eating, ill S42.201A - Unspecified fracture of upper end of ri HOSP F/U RT HUMERUS FX WX S42.201A Reason for Visit Dehydration Closed fracture of right proximal humerus Chief Complaint not eating, ill not eating, ill not eating, ill not eating, ill not eating, ill not eating, ill not eating, ill not eating, ill S42.201A - Unspecified fracture of upper end of ri HOSP F/U RT HUMERUS FX WX S42.201A port issues Reason for Visit ESRD (end stage liliya l disease) on dialysis Dehydration Closed fracture of right proximal humerus Complications, dialysis, catheter, mechanical ESRD (end stage renal disease) on dialysis Chief Complaint not eating, ill not eating, ill not eating, ill not eating, ill not eating, ill not eating, ill S42.201A - Unspecified fracture of upper end of ri HOSP F/U RT HUMERUS FX WX S42.201A port issues esrd Reason for Visit ESRD (end stage liliya l disease) on dialysis Dehydration Closed fracture of right proximal humerus Chief Complaint not eating, ill S42.201A - Unspecified fracture of upper end of ri HOSP F/U RT HUMERUS FX WX S42.201A port issues esrd esrd esrd surgical clearance Reason for Visit ESRD (end stage liliya l disease) on dialysis Dehydration Closed fracture of right proximal humerus Complications, dialysis, catheter, mechanical History of alcohol abuse Chief Complaint not eating, ill S42.201A - Unspecified fracture of upper end of ri HOSP F/U RT HUMERUS FX WX S42.201A port issues esrd esrd esrd surgical clearance OP SP RT SHOULDER PAIN S42.201A - Unspecified fracture of upper end of ri Reason for Visit ESRD (end stage liliya l disease) on dialysis Dehydration Closed fracture of right proximal humerus Complications, dialysis, catheter, mechanical History of alcohol abuse Closed fracture of right proximal humerus Chief Complaint S42.201A port issues esrd esrd esrd surgical clearance OP SP RT SHOULDER PAIN S42.201A - Unspecified fracture of upper end of ri Shoulder pain Reason for Visit Complications, dialy sis, catheter, mechanical History of alcohol abuse Closed fracture of right proximal humerus Chief Complaint S42.201A port issues esrd esrd esrd surgical clearance OP SP RT SHOULDER PAIN S42.201A - Unspecified fracture of upper end of ri Shoulder pain Shoulder pain Shoulder pain Reason for Visit Complications, dialy sis, catheter, mechanical History of alcohol abuse Closed fracture of right proximal humerus Chief Complaint S42.201A port issues esrd esrd esrd surgical clearance OP SP RT SHOULDER PAIN S42.201A - Unspecified fracture of upper end of ri Shoulder pain Shoulder pain Shoulder pain S42.201A - Unspecified fracture of upper end of ri 10-14 days post op Reason for Visit Complications, dialy sis, catheter, mechanical History of alcohol abuse Closed fracture of right proximal humerus Closed fracture of right proximal humerus 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 Chief Complaint S42.201A port issues esrd esrd esrd surgical clearance OP SP RT SHOULDER PAIN S42.201A - Unspecified fracture of upper end of ri Shoulder pain Shoulder pain Shoulder pain Z96.611 10-14 days post op Shoulder pain Shoulder pain Reason for Visit Complications, dialy sis, catheter, mechanical History of alcohol abuse Closed fracture of right proximal humerus Closed fracture of right proximal humerus 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 Chief Complaint port issues esrd esrd esrd surgical clearance OP SP RT SHOULDER PAIN S42.201A - Unspecified fracture of upper end of ri Shoulder pain Shoulder pain Shoulder pain Z96.611 10-14 days post op Shoulder pain Shoulder pain 10-14 days post op Z96.611 - Presence of right artificial shoulder jp Reason for Visit Complications, dialy sis, catheter, mechanical History of alcohol abuse Closed fracture of right proximal humerus Closed fracture of right proximal humerus 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 Closed fracture of right proximal humerus 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 Chief Complaint port issues esrd esrd esrd surgical clearance OP SP RT SHOULDER PAIN S42.201A - Unspecified fracture of upper end of ri Shoulder pain Shoulder pain Shoulder pain Z96.611 10-14 days post op Shoulder pain Shoulder pain 10-14 days post op Z96.611 - Presence of right artificial shoulder jp Z96.619, T84.028A Z96.611 Reason for Visit Complications, dialy sis, catheter, mechanical History of alcohol abuse Closed fracture of right proximal humerus Closed fracture of right proximal humerus 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 Closed fracture of right proximal humerus 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 Chief Complaint port issues esrd esrd esrd surgical clearance OP SP RT SHOULDER PAIN S42.201A - Unspecified fracture of upper end of ri Shoulder pain Shoulder pain Shoulder pain Z96.611 10-14 days post op Shoulder pain Shoulder pain 10-14 days post op Z96.611 - Presence of right artificial shoulder jp Z96.619, T84.028A Z96.611 Shoulder pain Shoulder pain Reason for Visit Complications, dialy sis, catheter, mechanical History of alcohol abuse Closed fracture of right proximal humerus Closed fracture of right proximal humerus 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 Closed fracture of right proximal humerus 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 Chief Complaint port issues esrd esrd esrd surgical clearance OP SP RT SHOULDER PAIN S42.201A - Unspecified fracture of upper end of ri Shoulder pain Shoulder pain Shoulder pain Z96.611 10-14 days post op Shoulder pain Shoulder pain 10-14 days post op Z96.611 - Presence of right artificial shoulder jp Z96.619, T84.028A Z96.611 Shoulder pain Shoulder pain Z96.611 - Presence of right artificial shoulder jp WOUND CHECK Reason for Visit Complications, dialy sis, catheter, mechanical History of alcohol abuse Closed fracture of right proximal humerus Closed fracture of right proximal humerus 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 Closed fracture of right proximal humerus 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 Closed fracture of right proximal humerus 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 Chief Complaint port issues esrd esrd esrd surgical clearance OP SP RT SHOULDER PAIN S42.201A - Unspecified fracture of upper end of ri Shoulder pain Shoulder pain Shoulder pain Z96.611 10-14 days post op Shoulder pain Shoulder pain 10-14 days post op Z96.611 - Presence of right artificial shoulder jp Z96.619, T84.028A Z96.611 Shoulder pain Shoulder pain Z96.611 - Presence of right artificial shoulder jp WOUND CHECK 2 WEEKS Z96.619 - Presence of unspecified artificial shoul Reason for Visit Complications, dialy sis, catheter, mechanical History of alcohol abuse Closed fracture of right proximal humerus Closed fracture of right proximal humerus 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 Closed fracture of right proximal humerus 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 Closed fracture of right proximal humerus 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 Closed fracture of right proximal humerus 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 Chief Complaint port issues esrd esrd esrd surgical clearance OP SP RT SHOULDER PAIN S42.201A - Unspecified fracture of upper end of ri Shoulder pain Shoulder pain Shoulder pain Z96.611 10-14 days post op Shoulder pain Shoulder pain 10-14 days post op Z96.611 - Presence of right artificial shoulder jp Z96.619, T84.028A Z96.611 Shoulder pain Shoulder pain Z96.611 - Presence of right artificial shoulder jp WOUND CHECK 2 WEEKS Z96.619 - Presence of unspecified artificial shoul Reason for Visit Complications, dialy sis, catheter, mechanical History of alcohol abuse Closed fracture of right proximal humerus Closed fracture of right proximal humerus 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 Closed fracture of right proximal humerus 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 Closed fracture of right proximal humerus 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 Closed fracture of right proximal humerus Dislocation of prosthesis of right glenohumeral joint 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 Chief Complaint Admit Date Shoulder pain January 21, 2024 5: 39am Shoulder pain January 21, 2024 11 :21am Z96.611 February 02, 2024 7:50am 10-14 days post op February 02, 2024 8:47am Shoulder pain February 04, 2024 12:28pm Shoulder pain February 04, 2024 7:51pm 10-14 days post op February 16, 2024 8:51am Z96.611 - Presence of right artificial s houlder jp February 16, 2024 9:09am Z96.619, T84.028A Z96.611 January 10:51am Shoulder pain February 20, 2024 11:41am Shoulder pain February 20, 2024 2:34pm Z96.611 - Presence of right artificial s houlder jp February 24, 2024 7:34am WOUND CHECK February 24, 2024 10 :56am 2 WEEKS March 08, 2024 8 :46am Z96.619 - Presence of unspecified artifi cial shoul March 08, 2024 8:49am referred by Dr Mojica April 01, 2024 1:52pm 4 WEEKS April 05, 2024 2:54pm Z96.619 - Presence of unspecified artifi cial shoul April 05, 2024 2:56pm Reason for Visit Admit Date Closed fracture of right proximal humeru s February 02, 2024 8:47am 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 February 02, 2024 8:47am Status post reverse arthroplasty of righ t shoulder February 02, 2024 8:47am Closed fracture of right proximal humeru s February 16, 2024 8:51am 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 February 16, 2024 8:51am History of revision of total shoulder ar throplasty February 16, 2024 8:51am Status post reverse arthroplasty of righ t shoulder February 16, 2024 8:51am History of revision of total shoulder ar throplasty February 20, 2024 11:41am Closed fracture of right proximal humeru s February 24, 2024 10:56am 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 February 24, 2024 10:56am History of revision of total shoulder ar throplasty February 24, 2024 10:56am Status post reverse arthroplasty of righ t shoulder February 24, 2024 10:56am Closed fracture of right proximal humeru s March 08, 2024 8:46am 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 March 08, 2024 8:46am History of revision of total shoulder ar throplasty March 08, 2024 8:46am Infection of prosthetic shoulder joint O ctober 2023 8:46am Status post reverse arthroplasty of righ t shoulder March 08, 2024 8:46am ESRD (end stage renal disease) on dialys is April 01, 2024 1:52pm History of revision of total shoulder ar throplasty April 01, 2024 1:52pm Infection of prosthetic shoulder joint N ovember 2023 1:52pm Receiving intravenous antibiotic treatme nt as outpatient April 01, 2024 1:52pm Staphylococcus epidermidis infection Nov ember 2023 1:52pm Closed fracture of right proximal humeru s April 05, 2024 2:54pm 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 April 05, 2024 2:54pm History of revision of total shoulder ar throplasty April 05, 2024 2:54pm Infection of prosthetic shoulder joint N ovember 2023 2:54pm Status post reverse arthroplasty of righ t shoulder April 05, 2024 2:54pm Chief Complaint Admit Date referred by Dr Mojica April 01, 2024 1:52pm 4 WEEKS April 05, 2024 2:54pm Z96.619 - Presence of unspecified artifi cial shoul April 05, 2024 2:56pm Z96.611 - Presence of right artificial s houlder jp June 15, 2024 11:00am F/U AFTER THERAPY June 15, 2024 1 1:43am Reason for Visit Admit Date ESRD (end stage renal disease) on dialys is April 01, 2024 1:52pm History of revision of total shoulder ar throplasty April 01, 2024 1:52pm Infection of prosthetic shoulder joint N ovember 2023 1:52pm Receiving intravenous antibiotic treatme nt as outpatient April 01, 2024 1:52pm Staphylococcus epidermidis infection Nov ember 2023 1:52pm Closed fracture of right proximal humeru s April 05, 2024 2:54pm 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 April 05, 2024 2:54pm History of revision of total shoulder ar throplasty April 05, 2024 2:54pm Infection of prosthetic shoulder joint N ovember 2023 2:54pm Status post reverse arthroplasty of righ t shoulder April 05, 2024 2:54pm Closed fracture of right proximal humeru s June 15, 2024 11:43am 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 June 15, 2024 11:43am History of revision of total shoulder ar throplasty June 15, 2024 11:43am Infection of prosthetic shoulder joint J anuary 2024 11:43am Status post reverse arthroplasty of righ t shoulder June 15, 2024 11:43am Chief Complaint Admit Date referred by Dr Mojica April 01, 2024 1:52pm 4 WEEKS April 05, 2024 2:54pm Z96.619 - Presence of unspecified artifi cial shoul April 05, 2024 2:56pm Z96.611 June 15, 2024 1 1:00am F/U AFTER THERAPY June 15, 2024 1 1:43am Chief Complaint Admit Date 4 WEEKS April 05, 2024 2:54pm Z96.619 - Presence of unspecified artifi cial shoul April 05, 2024 2:56pm Z96.611 June 15, 2024 1 1:00am F/U AFTER THERAPY June 15, 2024 1 1:43am N18.5 July 01, 2024 2 :10pm Reason for Visit Admit Date Closed fracture of right proximal humeru s April 05, 2024 2:54pm 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 April 05, 2024 2:54pm History of revision of total shoulder ar throplasty April 05, 2024 2:54pm Infection of prosthetic shoulder joint N ovember 2023 2:54pm Status post reverse arthroplasty of righ t shoulder April 05, 2024 2:54pm Closed fracture of right proximal humeru s June 15, 2024 11:43am 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 Lara; VMAP done at [facility] 2024 9:43am ESRD August 05, 2024 10: 02am ESRD August 05, 2024 3:1 2pm 3 week follow up; AVF Creation July 10:49am Chief Complaint Admit Date Z96.611 June 15, 2024 1 1:00am F/U AFTER THERAPY June 15, 2024 1 1:43am N18.5 July 01, 2024 2 :10pm Ref from Dr. 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 June 15, 2024 11:43am History of revision of total shoulder ar throplasty June 15, 2024 11:43am Infection of prosthetic shoulder joint J anuary 2024 11:43am Status post reverse arthroplasty of righ t shoulder June 15, 2024 11:43am End-stage renal disease on hemodialysis July 20, 2024 9:43am End-stage renal disease on hemodialysis August 23, 2024 10:49am Hemodialysis access, AV graft July 10:49am Closed fracture of right proximal humeru s September 07, 2024 11:43am 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 September 07, 2024 11:43am History of revision of total shoulder ar throplasty September 07, 2024 11:43am Infection of prosthetic shoulder joint A pril 2024 11:43am Status post reverse arthroplasty of righ t shoulder September 07, 2024 11:43am Reason for Visit Admit Date End-stage renal disease on hemodialysis July 20, 2024 9:43am End-stage renal disease on hemodialysis August 23, 2024 10:49am Hemodialysis access, AV graft July 10:49am Closed fracture of right proximal humeru s September 07, 2024 11:43am 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 September 07, 2024 11:43am History of revision of total shoulder ar throplasty September 07, 2024 11:43am Infection of prosthetic shoulder joint A pril 2024 11:43am Status post reverse arthroplasty of righ t shoulder September 07, 2024 11:43am Hemodialysis access, AV graft August 11:02am Additional Source Comments INFORMATION SOURCE (unrecogn ized section and content) DATE CREATED AUTHOR 12/17/2019 [facility] DATE CREATED AUTHOR AUTHOR'S ORGANIZ ATION 04/16/2021 [facility] DATE CREATED AUTHOR AUTHOR'S ORGANIZ ATION 04/29/2021 [facility] DATE CREATED AUTHOR AUTHOR'S ORGANIZ ATION 07/08/2022 [facility] DATE CREATED AUTHOR AUTHOR'S ORGANIZ ATION 11/06/2022 [facility] DATE CREATED AUTHOR AUTHOR'S ORGANIZ ATION 09/16/2023 [facility] DATE CREATED AUTHOR AUTHOR'S ORGANIZ ATION 09/15/2024 [facility] DATE CREATED AUTHOR AUTHOR'S ORGANIZ ATION 02/17/2025 [facility] Reason for Visit (unrecogniz ed section and content) Status Reason Specialty Diagnoses / Procedures Referred By Contact Referred To Contact Pending Review Radiology Diagnoses Benign hypertension with CKD (chronic kidney disease) stage V (HCC) CKD (chronic kidney disease) stage 5, GFR less than 15 ml/min (HCC) Proteinuria, unspecified type Procedures US RENAL COMPLETE Tammi Chilel MD [id number], [facility] [address] [place] [address] Reason Comments Liver Recipient Follow-up Reason Comments Anemia Follow up hospital [facility] Reason Onset Date Comments Refill Request 08/05/2022 Refill Request 08/30/2022 Reason Comments Results Care Teams (unrecognized sec tion and content) Team Status: Active Member Role Status Dates PHYSICIAN NO FAMILY Primary Care Provider Active Team Status: Inactive Member Role Status Dates Frank Pantoja MD Primary Care Provider Active Start: June 15, 2024 End: June 15, 2024 Chuy Mojica DO Attending Provider Active St art: June 15, 2024 End: June 15, 2024 Team Status: Active Member Role Status Dates PHYSICIAN NO FAMILY Primary Care Provider Active Start: 2024 Tima Lara MD Attending Provider Active Star t: 2024 Team Status: Inactive Member Role Status Dates Tima Lara MD Attending Provider Active Star t: July 01, 2024 End: July 01, 2024 PHYSICIAN NO FAMILY Primary Care Provider Active Start: July 01, 2024 End: July 01, 2024 Team Status: Active Member Role Status Dates PHYSICIAN NO FAMILY Primary Care Provider Active Start: July 19, 2024 Pedro Floyd MD Attending Provider Active Start : July 19, 2024 Team Status: Inactive Member Role Status Dates PHYSICIAN NO FAMILY Primary Care Provider Active Start: July 20, 2024 End: July 20, 2024 Arvind Sun MD Attending Provider Active S tart: July 20, 2024 End: July 20, 2024 Team Status: Inactive Member Role Status Dates PHYSICIAN NO FAMILY Primary Care Provider Active Start: August 05, 2024 End: August 05, 2024 Arvind Sun MD Attending Provider Active S tart: August 05, 2024 End: August 05, 2024 Team Status: Active Member Role Status Dates PHYSICIAN NO FAMILY Primary Care Provider Active Start: August 05, 2024 Arvind Sun MD Attending Provider, Other Provider Active Start: August 05, 2024 Team Status: Inactive Member Role Status Dates PHYSICIAN NO FAMILY Primary Care Provider Active Start: August 23, 2024 End: August 23, 2024 SAM Manrique Attending Provider Active Start: August 23, 2024 End: August 23, 2024 Team Status: Active Member Role Status Dates Frank Pantoja MD Primary Care Provider Active Start: April 21, 2024 Pedro Floyd MD Attending Provider Active Start : April 21, 2024 Team Status: Active Member Role Status Dates Frank Pantoja MD Primary Care Provider Active Start: May 18, 2024 Tima Lara MD Attending Provider Active Star t: May 18, 2024 Team Status: Active Member Role Status Jeremiah Pantoja MD Primary Care Provider Active Team Status: Active Member Role Status Jeremiah Pantoja MD Primary Care Provider Active Start: January 20, 2024 Pedro Floyd MD Attending Provider Active Start : January 20, 2024 Team Status: Inactive Member Role Status Jeremiah Mojica DO Attending Provider Active St art: January 21, 2024 End: January 21, 2024 Frank Pantoja MD Primary Care Provider Active Start: January 21, 2024 End: January 21, 2024 Team Status: Active Member Role Status Dates Chuy Mojica DO Attending Provider, Other Provider Active Start: January 21, 2024 Frank Pantoja MD Primary Care Provider Active Start: January 21, 2024 Team Status: Inactive Member Role Status Jeremiah Pantoja MD Primary Care Provider Active Start: February 02, 2024 End: February 02, 2024 Chuy Mojica DO Attending Provider Active St art: February 02, 2024 End: February 02, 2024 Team Status: Inactive Member Role Status Jeremiah Pantoja MD Primary Care Provider Active Start: February 04, 2024 End: February 04, 2024 Chuy Mojica DO Admit Provider, Atte nding Provider Active Start: February 04, 2024 End: February 04, 2024 Team Status: Active Member Role Status Jeremiah Pantoja MD Primary Care Provider Active Start: February 04, 2024 Chuy Mojica DO Admit Provider, Atte nding Provider, Other Provider Active Start: February 04, 2024 Team Status: Inactive Member Role Status Jeremiah Pantoja MD Primary Care Provider Active Start: February 16, 2024 End: February 16, 2024 Chuy Mojica DO Attending Provider Active St art: February 16, 2024 End: February 16, 2024 Team Status: Active Member Role Status Jeremiah Pantoja MD Primary Care Provider Active Start: February 17, 2024 Tima Lara MD Attending Provider Active Star t: February 17, 2024 Team Status: Inactive Member Role Status Jeremiah Pantoja MD Primary Care Provider Active Start: February 17, 2024 End: February 17, 2024 Chuy Mojica DO Attending Provider Active St art: February 17, 2024 End: February 17, 2024 Team Status: Inactive Member Role Status Dates Frank Pantoja MD Primary Care Provider Active Start: February 20, 2024 End: February 21, 2024 Chuy Mojica DO Admit Provider, Atte nding Provider Active Start: February 20, 2024 End: February 21, 2024 Team Status: Active Member Role Status Dates Frank Pantoja MD Primary Care Provider Active Start: February 20, 2024 Chuy Mojica DO Admit Provider, Atte nding Provider, Other Provider Active Start: February 20, 2024 Team Status: Inactive Member Role Status Dates Frank Pantoja MD Primary Care Provider Active Start: February 24, 2024 End: February 24, 2024 Chuy Mojica DO Attending Provider Active St art: February 24, 2024 End: February 24, 2024 Team Status: Inactive Member Role Status Dates Frank Pantoja MD Primary Care Provider Active Start: March 08, 2024 End: March 08, 2024 Chuy Mojica DO Attending Provider Active St art: March 08, 2024 End: March 08, 2024 Team Status: Inactive Member Role Status Dates Frank Pantoja MD Primary Care Provider Active Start: April 01, 2024 End: April 01, 2024 Nirmal Pryor MD Attending Provider Active Sta rt: April 01, 2024 End: April 01, 2024 Team Status: Inactive Member Role Status Dates Frank Pantoja MD Primary Care Provider Active Start: April 05, 2024 End: April 05, 2024 Chuy Mojica DO Attending Provider Active St art: April 05, 2024 End: April 05, 2024 Team Status: Active Member Role Status Dates Frank Pantoja MD Primary Care Provider Active Start: April 05, 2024 Chuy Mojica DO Attending Provider Active St art: April 05, 2024 Team Status: Active Member Role Status Dates NON STAFF Primary Care Provider Active Team Status: Inactive Member Role Status Dates NON STAFF Primary Care Provider Active Start: September 08, 2023 End: September 27, 2023 Tone Martini DO Emergency Provider Active Sta rt: September 08, 2023 End: September 27, 2023 Hortensia Cordero MD Admit Provider Active Start: September 08, 2023 End: September 27, 2023 Larry Bridges MD Other Provider Active Start: September 07 End: September 27, 2023 Dominic Ac MD Other Provider Active Start: Aug End: September 27, 2023 Tima Lara MD Other Provider Active Start: A 2023 End: September 27, 2023 Radha Holman Other Provider Active Start: September 08, 2023 End: September 27, 2023 Bren Kwon DO Other Provider Active Start: September 08, 2023 End: September 27, 2023 Pepito Lopez MD Other Provider Active Start : September 08, 2023 End: September 27, 2023 Will Romero DO Other Provider Active Start: September 08, 2023 End: September 27, 2023 Tanya Grimm , ANP-BC Other Provider Active Start: September 08, 2023 End: September 27, 2023 Joseph Ocampo DO Other Provider Active Start: September 08, 2023 End: September 27, 2023 Alba Rodriguez APRN Other Provider Active St art: September 08, 2023 End: September 27, 2023 Luz Valdes NP-C Other Provider Active Sta rt: September 08, 2023 End: September 27, 2023 Cherelle Green APRN-ELECTRONIC SECURITY SPECIALIST-C Other Provider Active Start: September 08, 2023 End: September 27, 2023 Alysha Thakur LPN Other Provider Active Star t: September 08, 2023 End: September 27, 2023 Arvind Sun MD Other Provider Active Start : September 08, 2023 End: September 27, 2023 Azeb George NP-C Other Provider Active St art: September 08, 2023 End: September 27, 2023 Antelmo Ordoñez MD Other Provider Active Start : September 08, 2023 End: September 27, 2023 Lobito Joe MD Other Provider Active Start: September 08, 2023 End: September 27, 2023 Marty Ashley MD Other Provider Active Start: A 2023 End: September 27, 2023 Cande Russo MD Other Provider Active Star t: September 08, 2023 End: September 27, 2023 Pippa Jules NP-C Other Provider Active Start: September 08, 2023 End: September 27, 2023 Charlie Barajas , Other Provider Active Start : September 08, 2023 End: September 27, 2023 Pete Draper II, MD Other Provider Active S tart: September 08, 2023 End: September 27, 2023 Chuy Mojica , Other Provider Active Start: September 08, 2023 End: September 27, 2023 Emeka Canales MD Other Provider Active Start: A pri2023 End: September 27, 2023 Beba Ng MD Attending Provider Active Start: September 08, 2023 End: September 27, 2023 Team Status: Active Member Role Status Dates NON STAFF Primary Care Provider Active Start: September 11, 2023 End: September 27, 2023 Tone Martini , DO Emergency Provider Active Sta rt: September 11, 2023 End: September 27, 2023 Hortensia Cordero MD Admit Provider, Othe r Provider Active Start: September 11, 2023 End: September 27, 2023 Larry Bridges MD Other Provider Active Start: September 11, 2023 End: September 27, 2023 Dominic Ac MD Other Provider Active Start: Aug End: September 27, 2023 Tima Lara MD Other Provider Active Start: A 2023 End: September 27, 2023 Radha Holman Other Provider Active Start: September 11, 2023 End: September 27, 2023 Bren Kwon , Other Provider Active Start: September 11, 2023 End: September 27, 2023 Pepito Lopez MD Other Provider Active Start : September 11, 2023 End: September 27, 2023 Will Romero DO Other Provider Active Start: September 11, 2023 End: September 27, 2023 Tanya Grimm , ANP-BC Other Provider Active Start: September 11, 2023 End: September 27, 2023 Joseph Ocampo DO Other Provider Active Start: September 11, 2023 End: September 27, 2023 Alba Rodriguez , EDUCATION PARAPROFESSIONAL Other Provider Active St art: September 11, 2023 End: September 27, 2023 Luz Valdes , CASTING ASSISTANT-C Other Provider Active Sta rt: September 11, 2023 End: September 27, 2023 Cherelle Green , EDUCATION PARAPROFESSIONAL-ELECTRONIC SECURITY SPECIALIST-C Other Provider Active Start: September 11, 2023 End: September 27, 2023 Alysha Thakur LPN Other Provider Active Star t: September 11, 2023 End: September 27, 2023 Arvind Sun MD Attending Provider, Other Provider Active Start: September 11, 2023 End: September 27, 2023 Azeb George , OSCAR-C Other Provider Active St art: September 11, 2023 End: September 27, 2023 Antelmo Ordoñez MD Other Provider Active Start : September 11, 2023 End: September 27, 2023 Lobito Joe MD Other Provider Active Start: September 11, 2023 End: September 27, 2023 Team Status: Active Member Role Status Dates NON STAFF Primary Care Provider Active Start: September 12, 2023 End: September 27, 2023 Tone Martini , Emergency Provider Active Sta rt: September 12, 2023 End: September 27, 2023 Hortensia Cordero MD Admit Provider, Othe r Provider Active Start: September 12, 2023 End: September 27, 2023 Larry Bridges MD Other Provider Active Start: September 12, 2023 End: September 27, 2023 Dominic Ac MD Other Provider Active Start: Aug End: September 27, 2023 Tima Lara MD Other Provider Active Start: A pril 2023 End: September 27, 2023 Radha Holman Other Provider Active Start: September 12, 2023 End: September 27, 2023 Bren Kwon DO Other Provider Active Start: September 12, 2023 End: September 27, 2023 Pepito Lopez MD Other Provider Active Start : September 12, 2023 End: September 27, 2023 Will Romero DO Other Provider Active Start: September 12, 2023 End: September 27, 2023 Tanya Grimm , ANP-BC Other Provider Active Start: September 12, 2023 End: September 27, 2023 Joseph Ocampo , Other Provider Active Start: September 12, 2023 End: September 27, 2023 Alba Rodriguez APRN Other Provider Active St art: September 12, 2023 End: September 27, 2023 Luz Valdes CASTING ASSISTANT-C Other Provider Active Sta rt: September 12, 2023 End: September 27, 2023 Cherelle Green , EDUCATION PARAPROFESSIONAL-ELECTRONIC SECURITY SPECIALIST-C Other Provider Active Start: September 12, 2023 End: September 27, 2023 Alysha Thakur LPN Other Provider Active Star t: September 12, 2023 End: September 27, 2023 Arvind Sun MD Other Provider Active Start : September 12, 2023 End: September 27, 2023 Azeb George NP-C Other Provider Active St art: September 12, 2023 End: September 27, 2023 Antelmo Ordoñez MD Other Provider Active Start : September 12, 2023 End: September 27, 2023 Lobito Joe MD Other Provider Active Start: September 12, 2023 End: September 27, 2023 Marty Ashley MD Other Provider Active Start: A pri2023 End: September 27, 2023 Cande Russo MD Other Provider Active Star t: September 12, 2023 End: September 27, 2023 Pippa Jules NP-C Other Provider Active Start: September 12, 2023 End: September 27, 2023 Charlie Barajas DO Other Provider Active Start : September 12, 2023 End: September 27, 2023 Pete Draper II, MD Other Provider Active S tart: September 12, 2023 End: September 27, 2023 Chuy Mojica DO Attending Provider, Other Provider Active Start: September 12, 2023 End: September 27, 2023 Team Status: Active Member Role Status Dates NON STAFF Primary Care Provider Active Start: September 15, 2023 End: September 27, 2023 Tone Martini DO Emergency Provider Active Sta rt: September 15, 2023 End: September 27, 2023 Hortensia Cordero MD Admit Provider Active Start: September 15, 2023 End: September 27, 2023 Larry Bridges MD Other Provider Active Start: September 15, 2023 End: September 27, 2023 Dominic Ac MD Other Provider Active Start: Apr 2023 End: September 27, 2023 Tima Lara MD Other Provider Active Start: A pril 2023 End: September 27, 2023 Radha Holman Other Provider Active Start: September 15, 2023 End: September 27, 2023 Bren Kwon DO Other Provider Active Start: September 15, 2023 End: September 27, 2023 Pepito Lopez MD Other Provider Active Start : September 15, 2023 End: September 27, 2023 Will Romero DO Other Provider Active Start: September 15, 2023 End: September 27, 2023 Tanya Grimm , ANP-BC Other Provider Active Start: September 15, 2023 End: September 27, 2023 Joseph Ocampo DO Other Provider Active Start: September 15, 2023 End: September 27, 2023 Alba Rodriguez APRN Other Provider Active St art: September 15, 2023 End: September 27, 2023 Luz Valdes CASTING ASSISTANT-C Other Provider Active Sta rt: September 15, 2023 End: September 27, 2023 Cherelle Green , EDUCATION PARAPROFESSIONAL-ELECTRONIC SECURITY SPECIALIST-C Other Provider Active Start: September 15, 2023 End: September 27, 2023 Alysha Thakur LPN Other Provider Active Star t: September 15, 2023 End: September 27, 2023 Arvind Sun MD Other Provider Active Start : September 15, 2023 End: September 27, 2023 Azeb George , CASTING ASSISTANT-C Other Provider Active St art: September 15, 2023 End: September 27, 2023 Antelmo Ordoñez MD Other Provider Active Start : September 15, 2023 End: September 27, 2023 Lobito Joe MD Other Provider Active Start: September 15, 2023 End: September 27, 2023 Marty Ashley MD Other Provider Active Start: A pri2023 End: September 27, 2023 Cande Russo MD Other Provider Active Star t: September 15, 2023 End: September 27, 2023 Pippa Jules NP-C Other Provider Active Start: September 15, 2023 End: September 27, 2023 Charlie Barajas , DO Other Provider Active Start : September 15, 2023 End: September 27, 2023 Pete Draper II, MD Other Provider Active S tart: September 15, 2023 End: September 27, 2023 Chuy Mojica , DO Other Provider Active Start: September 15, 2023 End: September 27, 2023 Tani Meehan MD Attending Pro vider, Other Provider Active Start: September 15, 2023 End: September 27, 2023 Team Status: Active Member Role Status Dates NON STAFF Primary Care Provider Active Start: September 15, 2023 End: September 27, 2023 Tone Martini DO Emergency Provider Active Sta rt: September 15, 2023 End: September 27, 2023 Hortensia Cordero MD Admit Provider Active Start: September 15, 2023 End: September 27, 2023 Larry Bridges MD Other Provider Active Start: September 14 End: September 27, 2023 Dominic Ac MD Other Provider Active Start: Aug End: September 27, 2023 Tima Lara MD Other Provider Active Start: A pril 2023 End: September 27, 2023 Radha Holman Other Provider Active Start: September 15, 2023 End: September 27, 2023 Bren Kwon , Other Provider Active Start: September 15, 2023 End: September 27, 2023 Pepito Lopez MD Other Provider Active Start : September 15, 2023 End: September 27, 2023 Will Romero , Other Provider Active Start: September 15, 2023 End: September 27, 2023 Tanya Grimm ANP-BC Other Provider Active Start: September 15, 2023 End: September 27, 2023 Joseph Ocampo , Other Provider Active Start: September 15, 2023 End: September 27, 2023 Alba Rodriguez APRN Other Provider Active St art: September 15, 2023 End: September 27, 2023 Luz Valdes NP-C Other Provider Active Sta rt: September 15, 2023 End: September 27, 2023 Cherelle Green , EDUCATION PARAPROFESSIONAL-ELECTRONIC SECURITY SPECIALIST-C Other Provider Active Start: September 15, 2023 End: September 27, 2023 Alysha Thakur LPN Other Provider Active Star t: September 15, 2023 End: September 27, 2023 Arvind Sun MD Other Provider Active Start : September 15, 2023 End: September 27, 2023 Azeb George NP-C Other Provider Active St art: September 15, 2023 End: September 27, 2023 Antelmo Ordoñez MD Other Provider Active Start : September 15, 2023 End: September 27, 2023 Lobito Joe MD Other Provider Active Start: September 15, 2023 End: September 27, 2023 Marty Ashley MD Other Provider Active Start: A pril 2023 End: September 27, 2023 Cande Russo MD Other Provider Active Star t: September 15, 2023 End: September 27, 2023 Pippa Jules NP-C Other Provider Active Start: September 15, 2023 End: September 27, 2023 Charlie Barajas DO Other Provider Active Start : September 15, 2023 End: September 27, 2023 Pete Draper II, MD Other Provider Active S tart: September 15, 2023 End: September 27, 2023 Chuy Mojica DO Other Provider Active Start: September 15, 2023 End: September 27, 2023 Tani Meehan MD Other Provider Active Start: September 15, 2023 End: September 27, 2023 Sis Conn MD Attending Provider Active Star t: September 15, 2023 End: September 27, 2023 Team Status: Active Member Role Status Dates NON STAFF Primary Care Provider Active Start: September 17, 2023 End: September 27, 2023 Tone Martini DO Emergency Provider Active Sta rt: September 17, 2023 End: September 27, 2023 Hortensia Cordero MD Admit Provider Active Start: September 17, 2023 End: September 27, 2023 Larry Bridges MD Other Provider Active Start: September 17, 2023 End: September 27, 2023 Dominic Ac MD Other Provider Active Start: Aug End: September 27, 2023 Tima Lara MD Other Provider Active Start: A 2023 End: September 27, 2023 Radhaaamir Holman Other Provider Active Start: September 17, 2023 End: September 27, 2023 Bren Kwon , Other Provider Active Start: September 17, 2023 End: September 27, 2023 Pepito Lopez MD Other Provider Active Start : September 17, 2023 End: September 27, 2023 Will Romero , Other Provider Active Start: September 17, 2023 End: September 27, 2023 Tanya Grimm , ANP- Other Provider Active Start: September 17, 2023 End: September 27, 2023 Joseph Ocampo DO Other Provider Active Start: September 17, 2023 End: September 27, 2023 Alba Rodriguez APRN Other Provider Active St art: September 17, 2023 End: September 27, 2023 Luz Valdes NP-C Other Provider Active Sta rt: September 17, 2023 End: September 27, 2023 Cherelle Green APRN-ELECTRONIC SECURITY SPECIALIST-C Other Provider Active Start: September 17, 2023 End: September 27, 2023 Alysha Thakur LPN Other Provider Active Star t: September 17, 2023 End: September 27, 2023 Arvind Sun MD Other Provider Active Start : September 17, 2023 End: September 27, 2023 Azeb George NP-C Other Provider Active St art: September 17, 2023 End: September 27, 2023 Antelmo Ordoñez MD Other Provider Active Start : September 17, 2023 End: September 27, 2023 Lobito Joe MD Other Provider Active Start: September 17, 2023 End: September 27, 2023 Marty Ashley MD Other Provider Active Start: A pril 2023 End: September 27, 2023 Cande Russo MD Other Provider Active Star t: September 17, 2023 End: September 27, 2023 Pippa Jules NP-C Other Provider Active Start: September 17, 2023 End: September 27, 2023 Charlie Barajas , DO Other Provider Active Start : September 17, 2023 End: September 27, 2023 Pete Draper II, MD Other Provider Active S tart: September 17, 2023 End: September 27, 2023 Chuy Mojica , Other Provider Active Start: September 17, 2023 End: September 27, 2023 Tani Meehan MD Other Provider Active Start: September 17, 2023 End: September 27, 2023 Emeka Canales MD Attending Provider, Other Provider Active Start: September 17, 2023 End: September 27, 2023 Team Status: Active Member Role Status Dates NON STAFF Primary Care Provider Active Start: September 22, 2023 End: September 27, 2023 Tone Martini DO Emergency Provider Active Sta rt: September 22, 2023 End: September 27, 2023 Hortensia Cordero MD Admit Provider Active Start: September 22, 2023 End: September 27, 2023 Larry Bridges MD Other Provider Active Start: September 21 End: September 27, 2023 Dominic Ac MD Other Provider Active Start: Aug End: September 27, 2023 Tima Lara MD Other Provider Active Start: A pril 2023 End: September 27, 2023 Radha Holman Other Provider Active Start: September 22, 2023 End: September 27, 2023 Bren Kwon , Other Provider Active Start: September 22, 2023 End: September 27, 2023 Pepito Lopez MD Other Provider Active Start : September 22, 2023 End: September 27, 2023 Will Romero , Other Provider Active Start: September 22, 2023 End: September 27, 2023 Tanya Grimm , ANP-BC Other Provider Active Start: September 22, 2023 End: September 27, 2023 Joseph Ocampo DO Other Provider Active Start: September 22, 2023 End: September 27, 2023 Alba Rodriguez , EDUCATION PARAPROFESSIONAL Other Provider Active St art: September 22, 2023 End: September 27, 2023 SAM Person Other Provider Active Sta rt: September 22, 2023 End: September 27, 2023 Cherelle Green , EDUCATION PARAPROFESSIONAL-ELECTRONIC SECURITY SPECIALIST-C Other Provider Active Start: September 22, 2023 End: September 27, 2023 Alysha Thakur LPN Other Provider Active Star t: September 22, 2023 End: September 27, 2023 Arvind Sun MD Other Provider Active Start : September 22, 2023 End: September 27, 2023 Azeb George NP-C Other Provider Active St art: September 22, 2023 End: September 27, 2023 Antelmo Ordoñez MD Other Provider Active Start : September 22, 2023 End: September 27, 2023 Lobito Joe MD Other Provider Active Start: September 22, 2023 End: September 27, 2023 Marty Ashley MD Other Provider Active Start: A pril 2023 End: September 27, 2023 Cande Russo MD Other Provider Active Star t: September 22, 2023 End: September 27, 2023 Pippa Jules NP-C Other Provider Active Start: September 22, 2023 End: September 27, 2023 Charlie Barajas DO Other Provider Active Start : September 22, 2023 End: September 27, 2023 Pete Draper II, MD Other Provider Active S tart: September 22, 2023 End: September 27, 2023 Chuy Mojica DO Other Provider Active Start: September 22, 2023 End: September 27, 2023 Emeka Canales MD Other Provider Active Start: A pril 2023 End: September 27, 2023 Beba Ng MD Other Provider Active Sta rt: September 22, 2023 End: September 27, 2023 Pedro Floyd MD Attending Provider Active Start : September 22, 2023 End: September 27, 2023 Team Status: Active Member Role Status Dates NON STAFF Primary Care Provider Active Start: September 22, 2023 End: September 27, 2023 Tone Martini DO Emergency Provider Active Sta rt: September 22, 2023 End: September 27, 2023 Hortensia Cordero MD Admit Provider Active Start: September 22, 2023 End: September 27, 2023 Larry Bridges MD Other Provider Active Start: September 22, 2023 End: September 27, 2023 Dominic Ac MD Other Provider Active Start: Apr 2023 End: September 27, 2023 Tima Lara MD Other Provider Active Start: A pril 2023 End: September 27, 2023 Radhaaamir Holman Other Provider Active Start: September 22, 2023 End: September 27, 2023 Bren Kwon DO Other Provider Active Start: September 22, 2023 End: September 27, 2023 Pepito Lopez MD Other Provider Active Start : September 22, 2023 End: September 27, 2023 Will Romero DO Other Provider Active Start: September 22, 2023 End: September 27, 2023 Tanya Grimm , ANP- Other Provider Active Start: September 22, 2023 End: September 27, 2023 Joseph Ocampo DO Other Provider Active Start: September 22, 2023 End: September 27, 2023 Alba Rodriguez APRN Other Provider Active St art: September 22, 2023 End: September 27, 2023 Luz Valdes CASTING ASSISTANT-C Other Provider Active Sta rt: September 22, 2023 End: September 27, 2023 Cherelle Green APRN-ELECTRONIC SECURITY SPECIALIST-C Other Provider Active Start: September 22, 2023 End: September 27, 2023 Alysha Thakur LPN Other Provider Active Star t: September 22, 2023 End: September 27, 2023 Arvind Sun MD Other Provider Active Start : September 22, 2023 End: September 27, 2023 Azeb George NP-C Other Provider Active St art: September 22, 2023 End: September 27, 2023 Antelmo Ordoñez MD Other Provider Active Start : September 22, 2023 End: September 27, 2023 Lobito Joe MD Other Provider Active Start: September 22, 2023 End: September 27, 2023 Marty Ashley MD Other Provider Active Start: A pril 2023 End: September 27, 2023 Cande Russo MD Other Provider Active Star t: September 22, 2023 End: September 27, 2023 SAM Schwarz Other Provider Active Start: September 22, 2023 End: September 27, 2023 Charlie Barajas DO Other Provider Active Start : September 22, 2023 End: September 27, 2023 Pete Draper II, MD Other Provider Active S tart: September 22, 2023 End: September 27, 2023 Chuy Mojica DO Other Provider Active Start: September 22, 2023 End: September 27, 2023 Emeka Canales MD Other Provider Active Start: A pril 2023 End: September 27, 2023 Beba Ng MD Attending Provide r, Other Provider Active Start: September 22, 2023 End: September 27, 2023 Team Status: Inactive Member Role Status Dates NON STAFF Primary Care Provider Active Start: October 06, 2023 End: October 06, 2023 Chuy Mojica DO Attending Provider Active St art: October 06, 2023 End: October 06, 2023 Team Status: Inactive Member Role Status Dates NON STAFF Primary Care Provider Active Start: November 10, 2023 End: November 10, 2023 Chuy Mojica DO Attending Provider Active St art: November 10, 2023 End: November 10, 2023 Team Status: Inactive Member Role Status Dates NON STAFF Primary Care Provider Active Start: December 10, 2023 End: December 10, 2023 Patria Saldana APRN Emergency Provider Active Start: December 10, 2023 End: December 10, 2023 Team Status: Inactive Member Role Status Dates Frank Pantoja MD Primary Care Provider Active Flash Black MD Attending Provider Active Team Status: Inactive Member Role Status Dates Frank Pantoja MD Primary Care Provider Active Tima Lara MD Attending Provider Active Team Status: Inactive Member Role Status Dates Frank Pantoja MD Primary Care Provider Active Joseph Mcbride MD Attending Provider Active Water Treatment Technician Relationship Specialty Start Date End Date Frank Pantoja MD PCP - General Family Medicine 01/06/15 Clarissa Valles Early Learning Teacher 02/02/15 Team Status: Active Member Role Status Dates Frank Pantoja MD Primary Care Provider Active Kelly Carmen APRN Emergency Provider Active Flo Thomson MD Admit Provider, Attending Provider Ac tive Gui Rodas MD Other Provider Active Pedro Floyd MD Other Provider Active Team Status: Active Member Role Status Dates Frank Pantoja MD Primary Care Provider Active Pedro Floyd MD Attending Provider Active Team Status: Inactive Member Role Status Dates Frank Pantoja MD Primary Care Provider Active Pedro Floyd MD Attending Provider Active Team Status: Inactive Member Role Status Dates Frank Pantoja MD Primary Care Provider Active Kelly Carmen APRN Emergency Provider Active Flo Thomson MD Admit Provider Active Gui Rodas MD Other Provider Active Pedro Floyd MD Other Provider Active Roberto Pollack MD Other Provider Active Beba Ng MD Attending Provider Active Water Treatment Technician Relationship Specialty Start Date End Date Frank Pantoja MD [address] [place] [address] PCP - General Family Medicine 07/16/22 Water Treatment Technician Relationship Specialty Start Date End Date Frank Pantoja MD [address] [place] [address] [place] [address] PCP - General Family Medicine 07/16/22 Water Treatment Technician Relationship Specialty Start Date End Date Frank Pantoja MD [address] [place] [address] [place] [address] PCP - General Family Medicine 07/16/22 Team Status: Active Member Role Status Dates Provider Conversion Primary Care Provider Active Start: August 19, 2023 Pedro Floyd MD Attending Provider Active Start : August 19, 2023 Team Status: Active Member Role Status Dates NON STAFF Primary Care Provider Active Start: September 08, 2023 Tone Martini DO Emergency Provider Active Sta rt: September 08, 2023 Hortensia Cordero MD Admit Provider, Attending Provider Active Start: September 08, 2023 Team Status: Active Member Role Status Dates Frank Pantoja MD Primary Care Provider Active Start: July 24, 2023 Sis Conn MD Attending Provider Active Star t: July 24, 2023 Team Status: Active Member Role Status Dates NON STAFF Primary Care Provider Active Start: September 08, 2023 Tone Martini DO Emergency Provider Active Sta rt: September 08, 2023 Hortensia Cordero MD Admit Provider, Atte nding Provider, Other Provider Active Start: September 08, 2023 Hal Mejia DO Other Provider Active Start: Ap ril 2023 Tima Lara MD Other Provider Active Start: A pril 2023 Team Status: Active Member Role Status Dates NON STAFF Primary Care Provider Active Start: September 08, 2023 Tone Martini , DO Emergency Provider Active Sta rt: September 08, 2023 Hortensia Cordero MD Admit Provider, Other Provider Act christi Start: September 08, 2023 Tima Lara MD Attending Provider, Other Provider A ctive Start: September 08, 2023 Hal Mejia DO Other Provider Active Start: Ap ril 2023 Team Status: Active Member Role Status Dates NON STAFF Primary Care Provider Active Start: September 09, 2023 Tone Martini DO Emergency Provider Active Sta rt: September 09, 2023 Hortensia Cordero MD Admit Provider, Othe r Provider Active Start: September 09, 2023 Tima Lara MD Other Provider Active Start: A 2023 Dominic Ac MD Attending Provider, Other Provider Active Start: September 09, 2023 Larry Bridges MD Other Provider Active Start: September 082023 Team Status: Active Member Role Status Dates NON STAFF Primary Care Provider Active Start: September 09, 2023 Tone Martini DO Emergency Provider Active Sta rt: September 09, 2023 Hortensia Cordero MD Admit Provider, Othe r Provider Active Start: September 09, 2023 Tima Lara MD Other Provider Active Start: A pri2023 Dominic Ac MD Other Provider Active Start: Aug Larry Bridges MD Attending Provider, Other Provider Active Start: September 09, 2023 Team Status: Active Member Role Status Dates NON STAFF Primary Care Provider Active Start: September 11, 2023 Tone Martini , DO Emergency Provider Active Sta rt: September 11, 2023 Hortensia Cordero MD Admit Provider, Othe r Provider Active Start: September 11, 2023 Larry Bridges MD Other Provider Active Start: September 11, 2023 Dominic Ac MD Other Provider Active Start: Aug Tima Lara MD Other Provider Active Start: A pril 2023 Radha Holman Other Provider Active Start: September 11, 2023 Bren Kwon , Other Provider Active Start: September 11, 2023 Pepito Lopez MD Other Provider Active Start : September 11, 2023 Will Romero , Other Provider Active Start: September 11, 2023 Tanya Grimm , ANP-BC Other Provider Active Start: September 11, 2023 Joseph Ocampo DO Other Provider Active Start: September 11, 2023 Alba Rodriguez APRN Other Provider Active St art: September 11, 2023 Luz Valdes CASTING ASSISTANT-C Other Provider Active Sta rt: September 11, 2023 Cherelle Green APRN-ELECTRONIC SECURITY SPECIALIST-C Other Provider Active Start: September 11, 2023 Alysha Thakur LPN Other Provider Active Star t: September 11, 2023 Arvind Sun MD Attending Provider, Other Provider Active Start: September 11, 2023 Azeb George CASTING ASSISTANT-C Other Provider Active St art: September 11, 2023 Antelmo Ordoñez MD Other Provider Active Start : September 11, 2023 Lobito Joe MD Other Provider Active Start: September 11, 2023 Team Status: Active Member Role Status Dates NON STAFF Primary Care Provider Active Start: September 12, 2023 Tone Martini DO Emergency Provider Active Sta rt: September 12, 2023 Hortensia Cordero MD Admit Provider, Othe r Provider Active Start: September 12, 2023 Larry Bridges MD Other Provider Active Start: September 12, 2023 Dominic Ac MD Other Provider Active Start: Aug Tima Lara MD Other Provider Active Start: A pril 2023 Radha Holman Other Provider Active Start: September 12, 2023 Bren Kwon , DO Other Provider Active Start: September 12, 2023 Pepito Lopez MD Other Provider Active Start : September 12, 2023 Will Romero , DO Other Provider Active Start: September 12, 2023 Tanya Grimm , ANP-BC Other Provider Active Start: September 12, 2023 Joseph Ocampo , DO Other Provider Active Start: September 12, 2023 Alba Rodriguez , EDUCATION PARAPROFESSIONAL Other Provider Active St art: September 12, 2023 Luz Valdes , CASTING ASSISTANT-C Other Provider Active Sta rt: September 12, 2023 Cherelle Green , EDUCATION PARAPROFESSIONAL-ELECTRONIC SECURITY SPECIALIST-C Other Provider Active Start: September 12, 2023 Alysha Thakur JEWEL INSERTER Other Provider Active Star t: September 12, 2023 Arvind Sun MD Other Provider Active Start : September 12, 2023 Azeb George CASTING ASSISTANT-C Other Provider Active St art: September 12, 2023 Antelmo Ordoñez MD Other Provider Active Start : September 12, 2023 Lobito Joe MD Other Provider Active Start: September 12, 2023 Marty Ashley MD Other Provider Active Start: A 2023 Cande Russo MD Other Provider Active Star t: September 12, 2023 Pippa Jules CASTING ASSISTANT-C Other Provider Active Start: September 12, 2023 Charlie Barajas DO Other Provider Active Start : September 12, 2023 Pete Draper II, MD Other Provider Active S tart: September 12, 2023 Chuy Mojica DO Attending Provider, Other Provider Active Start: September 12, 2023 Team Status: Active Member Role Status Dates NON STAFF Primary Care Provider Active Start: September 15, 2023 Tone Martini , Emergency Provider Active Sta rt: September 15, 2023 Hortensia Cordero MD Admit Provider Active Start: September 15, 2023 Larry Bridges MD Other Provider Active Start: September 15, 2023 Dominic Ac MD Other Provider Active Start: Apr il 2023 Tima Lara MD Other Provider Active Start: A pril 2023 Radha Holman Other Provider Active Start: September 15, 2023 Bren Kwon , Other Provider Active Start: September 15, 2023 Pepito Lopez MD Other Provider Active Start : September 15, 2023 Will Romero , DO Other Provider Active Start: September 15, 2023 Tanya Grimm , ANP- Other Provider Active Start: September 15, 2023 Joseph Ocampo , DO Other Provider Active Start: September 15, 2023 Alba Rodriguez , EDUCATION PARAPROFESSIONAL Other Provider Active St art: September 15, 2023 Luz Valdes , CASTING ASSISTANT-C Other Provider Active Sta rt: September 15, 2023 Cherelle Green , EDUCATION PARAPROFESSIONAL-ELECTRONIC SECURITY SPECIALIST-C Other Provider Active Start: September 15, 2023 Alysha Thakur JEWEL INSERTER Other Provider Active Star t: September 15, 2023 Arvind Sun MD Other Provider Active Start : September 15, 2023 Azeb George CASTING ASSISTANT-C Other Provider Active St art: September 15, 2023 Antelmo Ordoñez MD Other Provider Active Start : September 15, 2023 Lobito Joe MD Other Provider Active Start: September 15, 2023 Marty Ashley MD Other Provider Active Start: A pril 2023 Cande Russo MD Other Provider Active Star t: September 15, 2023 Pippa Jules , CASTING ASSISTANT-C Other Provider Active Start: September 15, 2023 Charlie Barajas DO Other Provider Active Start : September 15, 2023 Pete Draper II, MD Other Provider Active S tart: September 15, 2023 Chuy Mojica DO Other Provider Active Start: September 15, 2023 Tani Meehan MD Attending Pro vider, Other Provider Active Start: September 15, 2023 Team Status: Active Member Role Status Dates NON STAFF Primary Care Provider Active Start: September 15, 2023 Tone Martini , DO Emergency Provider Active Sta rt: September 15, 2023 Hortensia Cordero MD Admit Provider Active Start: September 15, 2023 Larry Bridges MD Other Provider Active Start: September 14 Dominic Ac MD Other Provider Active Start: Apr 2023 Tima Lara MD Other Provider Active Start: A pril 2023 Radha Holman Other Provider Active Start: September 15, 2023 Bren Kwon , DO Other Provider Active Start: September 15, 2023 Pepito Lopez MD Other Provider Active Start : September 15, 2023 Will Romero , DO Other Provider Active Start: September 15, 2023 Tanya Grimm , ANP-BC Other Provider Active Start: September 15, 2023 Joseph Ocampo , DO Other Provider Active Start: September 15, 2023 Alba Rodriguez , EDUCATION PARAPROFESSIONAL Other Provider Active St art: September 15, 2023 Luz Valdes , CASTING ASSISTANT-C Other Provider Active Sta rt: September 15, 2023 Cherelle Green , EDUCATION PARAPROFESSIONAL-ELECTRONIC SECURITY SPECIALIST-C Other Provider Active Start: September 15, 2023 Alysha Thakur LPN Other Provider Active Star t: September 15, 2023 Arvind Sun MD Other Provider Active Start : September 15, 2023 Azeb George CASTING ASSISTANT-C Other Provider Active St art: September 15, 2023 Antelmo Ordoñez MD Other Provider Active Start : September 15, 2023 Lobito Joe MD Other Provider Active Start: September 15, 2023 Marty Ashley MD Other Provider Active Start: A pril 2023 Cande Russo MD Other Provider Active Star t: September 15, 2023 Pippa Jules CASTING ASSISTANT-C Other Provider Active Start: September 15, 2023 Charlie Barajas , Other Provider Active Start : September 15, 2023 Pete Draper II, MD Other Provider Active S tart: September 15, 2023 Chuy Mojica DO Other Provider Active Start: September 15, 2023 Tani Meehan MD Other Provider Active Start: September 15, 2023 Sis Conn MD Attending Provider Active Star t: September 15, 2023 Team Status: Active Member Role Status Dates NON STAFF Primary Care Provider Active Start: September 17, 2023 Tone Martini , DO Emergency Provider Active Sta rt: September 17, 2023 Hortensia Cordero MD Admit Provider Active Start: September 17, 2023 Larry Bridges MD Other Provider Active Start: September 17, 2023 Dominic Ac MD Other Provider Active Start: Apr 2023 Tima Lara MD Other Provider Active Start: A pril 2023 Radha Holman Other Provider Active Start: September 17, 2023 Bren Kwon , Other Provider Active Start: September 17, 2023 Pepito Lopez MD Other Provider Active Start : September 17, 2023 Will Romero , DO Other Provider Active Start: September 17, 2023 Tanya Grimm , ANP-BC Other Provider Active Start: September 17, 2023 Joseph Ocampo , Other Provider Active Start: September 17, 2023 Alba Rodriguez APRN Other Provider Active St art: September 17, 2023 Luz Valdes , CASTING ASSISTANT-C Other Provider Active Sta rt: September 17, 2023 Cherelle Green , EDUCATION PARAPROFESSIONAL-ELECTRONIC SECURITY SPECIALIST-C Other Provider Active Start: September 17, 2023 Alysha Thakur LPN Other Provider Active Star t: September 17, 2023 Arvind Sun MD Other Provider Active Start : September 17, 2023 Azeb George CASTING ASSISTANT-C Other Provider Active St art: September 17, 2023 Antelmo Ordoñez MD Other Provider Active Start : September 17, 2023 Lobito Joe MD Other Provider Active Start: September 17, 2023 Marty Ashley MD Other Provider Active Start: A pril 2023 Cande Russo MD Other Provider Active Star t: September 17, 2023 Pippa Jules CASTING ASSISTANT-C Other Provider Active Start: September 17, 2023 Charlie Barajas DO Other Provider Active Start : September 17, 2023 Pete Draper II, MD Other Provider Active S tart: September 17, 2023 Chuy Mojica DO Other Provider Active Start: September 17, 2023 Tani Meehan MD Other Provider Active Start: September 17, 2023 Emeka Canales MD Attending Provider, Other Provider Active Start: September 17, 2023 Team Status: Active Member Role Status Dates NON STAFF Primary Care Provider Active Start: September 22, 2023 Tone Martini , DO Emergency Provider Active Sta rt: September 22, 2023 Hortensia Cordero MD Admit Provider Active Start: September 22, 2023 Larry Bridges MD Other Provider Active Start: September 21 Dominic Ac MD Other Provider Active Start: Aug Tima Lara MD Other Provider Active Start: A pril 2023 Radha Holman Other Provider Active Start: September 22, 2023 Bren Kwon DO Other Provider Active Start: September 22, 2023 Pepito Lopez MD Other Provider Active Start : September 22, 2023 Will Romero DO Other Provider Active Start: September 22, 2023 Tanya Grimm , ANP-BC Other Provider Active Start: September 22, 2023 Joseph Ocampo DO Other Provider Active Start: September 22, 2023 Alba Rodriguez , EDUCATION PARAPROFESSIONAL Other Provider Active St art: September 22, 2023 Luz Valdes CASTING ASSISTANT-C Other Provider Active Sta rt: September 22, 2023 Cherelle Green , EDUCATION PARAPROFESSIONAL-ELECTRONIC SECURITY SPECIALIST-C Other Provider Active Start: September 22, 2023 Alysha Thakur LPN Other Provider Active Star t: September 22, 2023 Arvind Sun MD Other Provider Active Start : September 22, 2023 Azeb George CASTING ASSISTANT-C Other Provider Active St art: September 22, 2023 Antelmo Ordoñez MD Other Provider Active Start : September 22, 2023 Lobito Joe MD Other Provider Active Start: September 22, 2023 Marty Ashley MD Other Provider Active Start: A pril 2023 Cande Russo MD Other Provider Active Star t: September 22, 2023 Pippa Jules , CASTING ASSISTANT-C Other Provider Active Start: September 22, 2023 Charlie Barajas DO Other Provider Active Start : September 22, 2023 Pete Draper II, MD Other Provider Active S tart: September 22, 2023 Chuy Mojica , DO Other Provider Active Start: September 22, 2023 Emeka Canales MD Other Provider Active Start: A pril 2023 Beba Ng MD Other Provider Active Sta rt: September 22, 2023 Pedro Floyd MD Attending Provider Active Start : September 22, 2023 Team Status: Active Member Role Status Dates NON STAFF Primary Care Provider Active Start: September 22, 2023 Tone Mratini , DO Emergency Provider Active Sta rt: September 22, 2023 Hortensia Cordero MD Admit Provider Active Start: September 22, 2023 Larry Bridges MD Other Provider Active Start: September 22, 2023 Dominic Ac MD Other Provider Active Start: Apr 2023 Tima Lara MD Other Provider Active Start: A pril 2023 Radha Holman Other Provider Active Start: September 22, 2023 Bren Kwon , Other Provider Active Start: September 22, 2023 Pepito Lopez MD Other Provider Active Start : September 22, 2023 Will Romero , Other Provider Active Start: September 22, 2023 Tanya Grimm , ANP-BC Other Provider Active Start: September 22, 2023 Joseph Ocampo , Other Provider Active Start: September 22, 2023 Alba Rodriguez APRN Other Provider Active St art: September 22, 2023 Luz Valdes CASTING ASSISTANT-C Other Provider Active Sta rt: September 22, 2023 Cherelle Green , EDUCATION PARAPROFESSIONAL-ELECTRONIC SECURITY SPECIALIST-C Other Provider Active Start: September 22, 2023 Alysha Thakur LPN Other Provider Active Star t: September 22, 2023 Arvind Sun MD Other Provider Active Start : September 22, 2023 Azeb George NP-C Other Provider Active St art: September 22, 2023 Antelmo Ordoñez MD Other Provider Active Start : September 22, 2023 Lobito Joe MD Other Provider Active Start: September 22, 2023 Marty Ashley MD Other Provider Active Start: A pril 2023 Cande Russo MD Other Provider Active Star t: September 22, 2023 SAM Schwarz Other Provider Active Start: September 22, 2023 Charlie Barajas , Other Provider Active Start : September 22, 2023 Pete Draper II, MD Other Provider Active S tart: September 22, 2023 Chuy Mojica DO Other Provider Active Start: September 22, 2023 Emeka Canales MD Other Provider Active Start: A pril 2023 Beba Ng MD Attending Provide r, Other Provider Active Start: September 22, 2023 Team Status: Active Member Role Status Dates NON STAFF Primary Care Provider Active Start: October 06, 2023 Chuy Mojica DO Attending Provider Active St art: October 06, 2023 Team Status: Active Member Role Status Dates NON STAFF Primary Care Provider Active Start: September 08, 2023 End: September 27, 2023 Tone Martini DO Emergency Provider Active Sta rt: September 08, 2023 End: September 27, 2023 Hortensia Cordero MD Admit Provider, Atte nding Provider, Other Provider Active Start: September 08, 2023 End: September 27, 2023 Hal Mejia DO Other Provider Active Start: Ap ril 2023 End: September 27, 2023 Tima Lara MD Other Provider Active Start: A pril 2023 End: September 27, 2023 Team Status: Active Member Role Status Dates NON STAFF Primary Care Provider Active Start: September 08, 2023 End: September 27, 2023 Tone Martini DO Emergency Provider Active Sta rt: September 08, 2023 End: September 27, 2023 Hortensia Cordero MD Admit Provider, Other Provider Act christi Start: September 08, 2023 End: September 27, 2023 Tima Lara MD Attending Provider, Other Provider A ctive Start: September 08, 2023 End: September 27, 2023 Hal Mejia DO Other Provider Active Start: Ap ril 2023 End: September 27, 2023 Team Status: Active Member Role Status Dates NON STAFF Primary Care Provider Active Start: September 09, 2023 End: September 27, 2023 Tone Martini , DO Emergency Provider Active Sta rt: September 09, 2023 End: September 27, 2023 Hortensia Cordero MD Admit Provider, Othe r Provider Active Start: September 09, 2023 End: September 27, 2023 Tima Lara MD Other Provider Active Start: A 2023 End: September 27, 2023 Dominic Ac MD Attending Provider, Other Provider Active Start: September 09, 2023 End: September 27, 2023 Larry Bridges MD Other Provider Active Start: September 082023 End: September 27, 2023 Team Status: Active Member Role Status Dates NON STAFF Primary Care Provider Active Start: September 09, 2023 End: September 27, 2023 Tone Martini DO Emergency Provider Active Sta rt: September 09, 2023 End: September 27, 2023 Hortensia Cordero MD Admit Provider, Othe r Provider Active Start: September 09, 2023 End: September 27, 2023 Tima Lara MD Other Provider Active Start: A 2023 End: September 27, 2023 Dominic Ac MD Other Provider Active Start: Aug End: September 27, 2023 Larry Bridges MD Attending Provider, Other Provider Active Start: September 09, 2023 End: September 27, 2023 Will Lacy MD Active Start: September 09, 2023 End: September 27, 2023 Team Status: Inactive Member Role Status Dates NON STAFF Primary Care Provider Active Start: December 12, 2023 End: December 12, 2023 Arvind Sun MD Attending Provider Active S tart: December 12, 2023 End: December 12, 2023 Team Status: Active Member Role Status Dates NON STAFF Primary Care Provider Active Start: November 17, 2023 Tima Lara MD Attending Provider Active Star t: November 17, 2023 Team Status: Active Member Role Status Dates NON STAFF Primary Care Provider Active Start: December 12, 2023 Arvind Sun MD Attending Provider, Other Provide r Active Start: December 12, 2023 Team Status: Active Member Role Status Dates NON STAFF Primary Care Provider Active Start: December 22, 2023 Arvind Sun MD Attending Provider, Other Provide r Active Start: December 22, 2023 Team Status: Inactive Member Role Status Dates NON STAFF Primary Care Provider Active Start: December 23, 2023 End: December 23, 2023 Dominic Ac MD Attending Provider Active Start: December 23, 2023 End: December 23, 2023 Team Status: Inactive Member Role Status Dates NON STAFF Primary Care Provider Active Start: December 25, 2023 End: December 25, 2023 Chuy Mojica DO Attending Provider Active St art: December 25, 2023 End: December 25, 2023 Team Status: Active Member Role Status Dates NON STAFF Primary Care Provider Active Start: December 25, 2023 Chuy Mojica DO Attending Provider Active St art: December 25, 2023 Team Status: Inactive Member Role Status Dates NON STAFF Primary Care Provider Active Start: December 10, 2023 End: December 10, 2023 Patria Saldana APRN Emergency Provider Active Start: December 10, 2023 End: December 10, 2023 Tima Lara MD Other Provider Active Start: J [email or web address] End: December 10, 2023 Team Status: Inactive Member Role Status Dates Chuy Mojica DO Attending Provider Active St art: January 06, 2024 End: January 06, 2024 Frank Pantoja MD Primary Care Provider Active Start: January 06, 2024 End: January 06, 2024 Team Status: Active Member Role Status Dates Frank Pantoja MD Primary Care Provider Active Start: December 17, 2023 Tima Lara MD Attending Provider Active Star t: December 17, 2023 Team Status: Active Member Role Status Dates Frank Pantoja MD Primary Care Provider Active Start: February 02, 2024 Chuy Mojica DO Attending Provider Active St art: February 02, 2024 Team Status: Active Member Role Status Dates Frank Pantoja MD Primary Care Provider Active Start: February 16, 2024 Chuy Mojica DO Attending Provider Active St art: February 16, 2024 Team Status: Active Member Role Status Dates Frank Pantoja MD Primary Care Provider Active Start: February 24, 2024 Chuy Mojica DO Attending Provider Active St art: February 24, 2024 Team Status: Active Member Role Status Dates Frank Pantoja MD Primary Care Provider Active Start: March 08, 2024 Chuy Mojica DO Attending Provider Active St art: March 08, 2024 Team Status: Active Member Role Status Dates Frank Pantoja MD Primary Care Provider Active Start: March 22, 2024 Tima Lara MD Attending Provider Active Star t: March 22, 2024 Team Status: Active Member Role Status Dates Frank Pantoja MD Primary Care Provider Active Start: June 15, 2024 Chuy Mojica DO Attending Provider Active St art: June 15, 2024 Team Status: Active Member Role Status Dates PHYSICIAN NO FAMILY Primary Care Provider Active Start: September 07, 2024 Chuy Mojica DO Attending Provider Active St art: September 07, 2024 Team Status: Inactive Member Role Status Dates Chuy Mojica DO Attending Provider Active St art: September 07, 2024 End: September 07, 2024 PHYSICIAN NO FAMILY Primary Care Provider Active Start: September 07, 2024 End: September 07, 2024 Team Status: Inactive Member Role Status Dates PHYSICIAN NO FAMILY Primary Care Provider Active Start: September 07, 2024 End: September 07, 2024 Chuy Mojica DO Attending Provider Active St art: September 07, 2024 End: September 07, 2024 Team Status: Inactive Member Role Status Dates PHYSICIAN NO FAMILY Primary Care Provider Active Start: September 13, 2024 End: September 13, 2024 Arvind Sun MD Attending Provider Active S tart: September 13, 2024 End: September 13, 2024 Team Status: Inactive Member Role Status Dates Tima Lara MD Attending Provider Active Star t: September 13, 2024 End: September 13, 2024 Goals (unrecognized section and content) Goals may be documented in a n alternate sectionGoals may be documented in an alternate sectionGoals may be documented in an alternate sectionGoals may be documented in an alternate sectionGoals may be documented in an alternate sectionGoals may be documented in an alternate sectionGoals may be documented in an alternate section Source Comments (unrecognize d section and content) In the event this informatio n is protected by the [facility] Confidentiality of Alcohol and Drug Abuse Patient Records regulations: The Federal rules restrict any use of the information to criminally investigate or prosecute any alcohol or drug abuse patient.[place] the event this information is protected by the Federal Confidentiality of Alcohol and Drug Abuse Patient Records regulations: The Federal rules restrict any use of the information to criminally investigate or prosecute any alcohol or drug abuse patient.[place] the event this information is protected by the Federal Confidentiality of Alcohol and Drug Abuse Patient Records regulations: The Federal rules restrict any use of the information to criminally investigate or prosecute any alcohol or drug abuse patient.[place] FOR RECORDS PERTAINING TO PATIENTS WHO ARE OR HAVE BEEN ENROLLED IN A CHEMICAL DEPENDENCY/SUBSTANCEABUSE PROGRAM, SOME INFORMATION MAY BE OMITTED. This clinical summary was aggregated from multiple sources. Caution should be exercised in using it in the provision of clinical care. This summary normalizes information from multiple sources, and as a consequence, information in this document may materially change the coding, format and clinical context of patient data. In addition, data may be omitted in some cases. CLINICAL DECISIONS SHOULD BE BASED ON THE PRIMARY CLINICAL RECORDS. [facility] [employer] [facility]. provides no warranty or guarantee of the accuracy or completeness of information in this document.
== END 2025-02-17 09:32 | disposition home or self-care (01) ==
LOC: RAD 09:31
PROVIDERS: PCP Student in an Organized Health Care Education/Training Program; Visit Provider Physician Assistant
DX: M25.511 Pain in right shoulder (principal); M79.641 Pain in right hand; S60.221A Contusion of right hand, initial encounter
CPT/HCPCS: 73030; 73130